=== PATIENT | male | born 1940 | race Caucasian/White ===

== ENCOUNTER 2016-12-26 15:58 | Inpatient (IN) | payer BC, OTHER ==
[~2016-12-26] VITALS: Ht 177.8 cm; Wt 104.7 kg
[~2016-12-26 15:58] MED LIST: ALLO300T2 PO; AMR2 PO; ASCA500 PO; ATEN50TA8 PO; CLBCRM30 TOP; CLC100 PO; CMD75 PO; CYAN100T6 PO; DILT120C68 PO; FERR1TAB23 PO; FLUO0.05 TOP; FOLI1TAB7 PO; GEMF600T3 PO; GLC500 PO; INSDGI SC; LDXCR30 TOP; LSN25 PO; MIRA1TAB3 PO; MORP15TA19 PO; MULT-506 PO; NVLGI SC; OMEG10007 PO; OXYC-57 PO; PARO1TAB27 PO; PRLSR20 PO; SIMV20TA2 PO; THIA100T11 PO
[2016-12-26] MEDS ORDERED: SODIUM CHLORIDE 0.9% 1000ML 1,000 ML IV STA ×2 (16:43→19:00)
--- NOTE | 2016-12-26 17:08 | DIAGNOSTIC IMAGING REPORT ---
SINGLE VIEW CHEST CLINICAL HISTORY: Weakness. Change in mental status. FINDINGS: An AP, portable, upright chest radiograph is compared to study dated 04/10/2016. The examination is degraded by portable technique, motion artifact, and apical lordotic positioning. The patient is status post midline sternotomy. The heart is enlarged and there is atherosclerotic calcification of the thoracic aorta. The pulmonary vasculature is noncongested. There is mild bibasilar atelectasis. The lungs and pleural spaces otherwise appear clear. No pneumothorax is seen. The skeletal structures are osteopenic. Degenerative change is noted in the thoracic spine and left shoulder. IMPRESSION: Cardiomegaly with no acute cardiopulmonary abnormality noting a motion degraded examination. Electronically signed by: Gabriele March M.D. 12/26/2016 5:07 PM Dictated Date/Time: 12/26/2016 5:05 PM
[2016-12-26] MEDS ORDERED: NVLGI/PEN SQ (17:21)
[2016-12-26] MEDS ORDERED: WARF5TAB7 PO (17:23)
[2016-12-26] MEDS ORDERED: WARF10TA4 PO (17:23)
[2016-12-26] MEDS ORDERED: FERR50TA3 PO (17:26)
[2016-12-26 18:10] LABS: PARTIAL THROMBOPLASTIN RATIO 3.8
[2016-12-26 18:25] LABS: ALKALINE PHOSPHATASE 158 U/L (45-117); ALT/SGPT 65 U/L (12-78); AST/SGOT 78 U/L (15-37); BLOOD UREA NITROGEN 82 mg/dl (7-18); BUN/CREATININE RATIO 15.7 (10-20); CALCIUM 9.3 mg/dl (8.5-10.1); CARBON DIOXIDE 19 mmol/L (21-32); CHLORIDE 96 mmol/L (98-107); CKMB/CK RATIO 1.8 (0-3.0); GLUCOSE 114 mg/dl (70-99); MAGNESIUM 2.1 mg/dl (1.8-2.4); POTASSIUM 4.3 mmol/L (3.5-5.1); SODIUM 131 mmol/L (136-145); THYROID STIMULATING HORMONE 0.848 uIu/ml (0.300-4.500)
[2016-12-26 18:37] LABS: PROTHROMBIN TIME (PATIENT) > 100.0 SECONDS (9.0-12.0)
[2016-12-26 18:46] LABS: INR > 8.0 (0.9-1.1)
[2016-12-26 18:54] LABS: COMPLETE YES; DOHLE BODIES 1+; EOSINOPHIL % 0.9 %; MEAN CORPUSCULAR HEMOGLOBIN 31.8 pg (25-34); MEAN CORPUSCULAR HGB CONC 35.4 g/dl (32-36); MYELOCYTE % 0.9 %; NEUTROPHILS % 90.4 %; PLATELET COUNT 263 K/uL (130-400); PLT ESTIMATE NORMAL; RED BLOOD COUNT 3.11 M/uL (4.7-6.1); TOXIC GRANULATION 2+; WHITE BLOOD COUNT 35.61 K/uL (4.8-10.8)
[2016-12-26] MEDS ORDERED: PHYTONADIONE 5 MG TAB PO STA (18:54)
[2016-12-26] MEDS ORDERED: CEFTRIAXONE SOD INJ 1 GM ADDVIAL IV STA (19:03)
--- NOTE | 2016-12-26 19:07 | EMERGENCY ROOM VISIT NOTE ---
History Report prepared by Eboni: Elif White Under the Supervision of: Dr. Salas Dale D.O. First contact with patient: 16:23 Chief Complaint: FLU LIKE SX Stated Complaint: LETHARGY, SLEEPY, WEAKNESS, NOSEBLEED, COLD History of Present Illness The patient is a 76 year old male who presents to the Emergency Room with complaints of persistent flu-like symptoms that began two weeks ago. He currently rates his discomfort as a 7/10 in severity. The patient stats that he has had a decrease in appetite. He notes that today he has been experiencing lethargy and total body aches. The patient states that he has been feeling depressed recently as well. He notes an increase in sleep over the past two weeks. The patient denies any congestion. He additionally notes shakes and chills. The patient states that he has had urinary incontinence and diarrhea that began one week ago. The patient states that he takes Coumadin and notes that he had a persistent epistaxis that began at 1200 today. He states that his last INR was checked one week ago and was 3.5. The patient notes a history of COPD stating that he uses a c-pap machine at night. He states that he has not cleaned his c-pap machine in quite some time, so he is unsure if his recent illness is related to not cleaning his c-pap machine. The patient's brother notes that the patient has a history of diabetes. Source of History: patient, family (brother) Onset: two weeks ago Position: other (global) Symptom Intensity: 7/10 Quality: other (flu-like symptoms) Timing: other (persistent) Associated Symptoms: + chills, + diarrhea, + urinary symptoms (urinary incontinence) Note: Associated Symptoms: lethargy, total body aches, decrease in appetite, increase in sleep, epistaxis Review of Systems See HPI for pertinent positives & negatives. A total of 10 systems reviewed and were otherwise negative. Past Medical & Surgical Medical Problems: (1) BPH (benign prostatic hyperplasia) (2) Diabetes type 2, controlled (3) Dyslipidemia (4) Fall (5) NEMESIO (iron deficiency anemia) (6) Iliac artery aneurysm (7) JAMES on CPAP (8) Paroxysmal atrial fibrillation Surgical Problems: (1) History of appendectomy (2) History of arthroscopy of both knees (3) History of spinal surgery (4) History of total left knee replacement (5) S/P AVR (aortic valve replacement) Family History Diabetes mellitus FH: cancer Heart disease Hypertension Social History Smoking Status: Former Smoker Alcohol Use: none Marital Status: Current/Historical Medications Scheduled Allopurinol (Zyloprim), 300 MG PO Q2D Ascorbic Acid (Vitamin C *), 500 MG PO Q2D Atenolol (Tenormin), 25 MG PO QAM Cyanocobalamin (Vitamin B12 100 Mcg), 500 MCG PO QPM Diltiazem Hcl Ext Rel (Tiazac), 120 MG PO QAM Ferrous Sulfate (Iron (Ferrous Sulfate)), 65 MG PO BID Fish Oil ([place]-3), 1 CAPSULE PO Q2D Fluocinonide (Lidex 0.05% Cream), 1 APPLN TOP DAILY PRN Folic Acid (Folvite), 1 MG PO QPM Gemfibrozil (Lopid), 600 MG PO BID Glimepiride (Amaryl *), 4 MG PO QAM Insulin Aspart (Novolog Flexpen), 1 DOSE SQ SLIDING SCALE Insulin Glargine (Lantus), 40 SC QPM Lisinopril (Lisinopril), 2.5 MG PO QPM Metformin HCL (Glucophage *), 1,000 MG PO BID Mirabegron (Myrbetriq Er), 50 MG PO QAM Multivitamin (Multivitamin), 1 TABLET PO Q2D Paroxetine (Paxil), 20 MG PO QAM Simvastatin (Zocor), 20 MG PO HS Warfarin Sod (Jantoven), 5 MG PO SUNDAY Warfarin Sod (Jantoven), 10 MG PO 6XWK Scheduled PRN Clobetasol Propionate (Clobetasol Propionate Cream 0.05%), 1 APPLN TOP BID PRN for PRN Allergies Coded Allergies: No Known Allergies (Verified , 12/26/16) Physical Exam Vital Signs Date Time Temp Pulse Resp B/P Pulse Ox O2 Delivery O2 Flow Rate FiO2 12/26/16 18:32 82 18 112/57 96 Room Air 12/26/16 17:22 80 20 88/56 95 Room Air 12/26/16 16:03 88 20 87/53 94 Room Air Physical Exam CONSTITUTIONAL/VITAL SIGNS: Reviewed / noted above. GENERAL: Non-toxic in appearance. INTEGUMENTARY: Warm, dry, and [place]. HEAD: Normocephalic. EYES: without scleral icterus or trauma. ENT/OROPHARYNX: SMall bleeding vessel in the right enterior septum. Dry blood in posterior oropharynx LYMPHADENOPATHY/NECK: Is supple without lymphadenopathy or meningismus. RESPIRATORY: Lungs clear and equal. CARDIOVASCULAR: Regular rate and rhythm. GI/ABDOMEN: Soft and nontender. No organomegaly or pulsatile mass. No rebound or guarding. Normal bowel sounds. EXTREMITIES: Warm and well perfused. BACK: No CVA tenderness. NEUROLOGICAL: Intact without focal deficits. PSYCHIATRIC: normal affect. MUSCULOSKELETAL: Normally developed with good muscle tone. Medical Decision & Procedures ER Provider Diagnostic Interpretation: X ray results and stated below per my interpretation and radiology interpretation. SINGLE VIEW CHEST CLINICAL HISTORY: Weakness. Change in mental status. FINDINGS: An AP, portable, upright chest radiograph is compared to study dated 04/10/2016. The examination is degraded by portable technique, motion artifact, and apical lordotic positioning. The patient is status post midline sternotomy. The heart is enlarged and there is atherosclerotic calcification of the thoracic aorta. The pulmonary vasculature is noncongested. There is mild bibasilar atelectasis. The lungs and pleural spaces otherwise appear clear. No pneumothorax is seen. The skeletal structures are osteopenic. Degenerative change is noted in the thoracic spine and left shoulder. IMPRESSION: Cardiomegaly with no acute cardiopulmonary abnormality noting a motion degraded examination. Electronically signed by: Gabriele March M.D. 12/26/2016 5:07 PM Dictated Date/Time: 12/26/2016 5:05 PM Laboratory Results 12/26/16 17:13 Red Blood Count 3.11, Mean Corpuscular Volume 90.0, Mean Corpuscular Hemoglobin 31.8, Mean Corpuscular Hemoglobin Concent 35.4, Mean Platelet Volume 10.0 12/26/16 17:13 Test 12/26/16 17:13 White Blood Count 35.61 K/uL (4.8-10.8) Red Blood Count 3.11 M/uL (4.7-6.1) Hemoglobin 9.9 g/dL (14.0-18.0) Hematocrit 28.0 % (42-52) Mean Corpuscular Volume 90.0 fL (80-100) Mean Corpuscular Hemoglobin 31.8 pg (25-34) Mean Corpuscular Hemoglobin Concent 35.4 g/dl (32-36) Platelet Count 263 K/uL (130-400) Mean Platelet Volume 10.0 fL (7.4-10.4) RDW Standard Deviation 44.4 fL (36.4-46.3) RDW Coefficient of Variation 13.5 % (11.5-14.5) Neutrophils % (Manual) 90.4 % Lymphocytes % (Manual) 0.0 % Monocytes % (Manual) 7.8 % Eosinophils % (Manual) 0.9 % Myelocytes % 0.9 % Neutrophils # (Manual) 32.19 K/uL (1.4-6.5) Total Absolute Neutrophils 32.19 K/uL (1.4-6.5) Total Absolute Lymphocytes 0.00 K/uL (1.2-3.4) Monocytes # (Manual) 2.78 K/uL (0.11-0.59) Eosinophils # (Manual) 0.32 K/uL (0-0.5) Myelocytes # 0.32 K/uL (0-0) Toxic Granulation 2+ Dohle Bodies 1+ Platelet Estimate NORMAL Prothrombin Time > 100.0 SECONDS Prothromb Time International Ratio > 8.0 (0.9-1.1) Activated Partial Thromboplast Time 98.3 SECONDS (21.0-31.0) Partial Thromboplastin Ratio 3.8 Anion Gap 16.0 mmol/L (3-11) Est Creatinine Clear Calc Drug Dose 15.3 ml/min Estimated GFR () 11.6 Estimated GFR (Non- 10.0 BUN/Creatinine Ratio 15.7 (10-20) Calcium Level 9.3 mg/dl (8.5-10.1) Magnesium Level 2.1 mg/dl (1.8-2.4) Total Bilirubin 0.6 mg/dl (0.2-1) Direct Bilirubin 0.3 mg/dl (0-0.2) Aspartate Amino Transf (AST/SGOT) 78 U/L (15-37) Alanine Aminotransferase (ALT/SGPT) 65 U/L (12-78) Alkaline Phosphatase 158 U/L (45-117) Total Creatine Kinase 153 U/L (39-308) Creatine Kinase MB 2.7 ng/ml (0.5-3.6) Creatine Kinase MB Ratio 1.8 (0-3.0) Troponin I < 0.015 ng/ml (0-0.045) Total Protein 8.5 gm/dl (6.4-8.2) Albumin 2.7 gm/dl (3.4-5.0) Lipase 1358 U/L (73-393) Thyroid Stimulating Hormone (TSH) 0.848 uIu/ml (0.300-4.500) Laboratory results as stated above per my review. Medications Administered Medications (Trade) Dose Ordered Sig/Vipul Route Start Time Stop Time Status Last Admin Dose Admin Sodium Chloride (Nss 1000ml) 1,000 ml @ 999 mls/hr Q1H1M STAT IV 12/26/16 16:43 12/26/16 17:43 DC 12/26/16 17:15 999 MLS/HR ECG Indication: other (illness) Rate (beats per minute): 86 Rhythm: sinus rhythm Findings: PVC, no acute ischemic change ED Course 1631: Previous medical records were reviewed. The patient was evaluated in room A4B. A complete history and physical examination was performed. 1643: Ordered Sodium Chloride 1000 ml @ 999 mls/hr IV. 1850: I discussed the patients case with Marguerite Gómez. He is going to evaluate the patient for further treatment. 1852: I reevaluated the patient and he is resting comfortably. I discussed the exam findings with him and his family and I discussed the treatment plan. They verbalized complete understanding and agreement. The patient will be evaluated for further treatment. 1854: Ordered Phytonadione 10 mg PO. Medical Decision Differential includes acute coronary syndrome, myocardial infarction, CVA, TIA, anemia, infection, pneumonia, UTI, pyelonephritis, poor nutrition, dehydration, electrolyte disturbance,hypoglycemia. This is a 76-year-old male who presents to the ED with a chief complaint of a nosebleed that started around noon. He also reports generalized malaise and fatigue over the past couple of weeks. He has no energy and no appetite. He also has had some diarrhea for the past week as well as some urinary incontinence. He primarily came in for the nosebleed but wanted to his other symptoms checked as well. He does not have any chest pains or shortness of breath. No abdominal pains. No headaches or back pains. His vital signs revealed initial blood pressure 87/53. He is not tachycardic or febrile. The patient's blood work reveals acute renal failure with a creatinine of 5.2 and a BUN of 82. The white blood cell count was 35.6. The patient was unable to provide a urine sample here. He has had some diarrhea but did not give a diarrhea sample during his ED stay. The patient was told the results. The patient was treated with 2 L normal saline IV. He was also given IV Rocephin and by mouth vitamin K 10 mg. The right sided epistaxis resolved after chemical cautery and some compression. The patient will be seen by the hospice for further inpatient evaluation. The cause for the leukocytosis is unclear at this point. The patient was unable to provide urine sample as of yet. Chest x- ray did not show pneumonia. C. difficile is a possibility. Consults Time Called: 1845 Consulting Physician: Marguerite Gómez Returned Call: 1850 I discussed the patients case with Marguerite Gómez. He is going to evaluate the patient for further treatment. Impression Primary Impression: Acute renal failure Additional Impressions: Elevated INR Dehydration Leukocytosis Scribe Attestation The scribe's documentation has been prepared under my direction and personally reviewed by me in its entirety. I confirm that the note above accurately reflects all work, treatment, procedures, and medical decision making performed by me. Departure Information Dispostion Being Evaluated By Hospitalist Referrals No Doctor, Assigned (PCP) Problem Qualifiers
[2016-12-26] MEDS ORDERED: GLUCOSE 10 TABS/TUBE PO PRN (20:30)
[2016-12-26] MEDS ORDERED: DEXTROSE 50% 50 ML SYR IV PRN (20:30)
[2016-12-26] MEDS ORDERED: GLUCOSE 40% GEL 15 GM TUBE PO PRN (20:30)
[2016-12-26] MEDS ORDERED: GLUCAGON FOR INJ 1 MG VIAL SQ PRN (20:30)
[2016-12-26] MEDS ORDERED: PHARMACY GLYCEMIC MGMT CONSULT PRN (20:38)
--- NOTE | 2016-12-26 20:57 | Pharmacy Progress Note ---
Glycemic Control Intl Consult Date of Service Dec 26, 2016. Scope Glycemic Pharmacist consulted by Dr Lynn on 12/26/17 for glycemic control and to write orders per [facility] inpatient glycemic control protocol Objective Weight (Kilograms): 111.500 Accuchecks BSG (last 24hrs): Test 12/26/16 17:13 Random Glucose 114 mg/dl (70-99) Laboratory Data (last 24hrs) Test 12/26/16 17:13 Anion Gap 16.0 mmol/L BUN/Creatinine Ratio 15.7 Blood Urea Nitrogen 82 mg/dl Creatinine 5.20 mg/dl Potassium Level 4.3 mmol/L Sodium Level 131 mmol/L White Blood Count 35.61 K/uL Red Blood Count 3.11 M/uL Hemoglobin 9.9 g/dL Hematocrit 28.0 % Mean Corpuscular Volume 90.0 fL Mean Corpuscular Hemoglobin 31.8 pg Mean Corpuscular Hemoglobin Concent 35.4 g/dl Platelet Count 263 K/uL Mean Platelet Volume 10.0 fL Recent Pertinent Medications Outpatient Anti-diabetic Regimen: * Lantus 40 units qPM with Novolog sliding scale, Amaryl 4 mg PO qday * A1c = 6.4 % 05/03/2016 Risk Factors for Insulin Resistance: * Steroids: * Infection: possible- flu like symptoms * Pressors: * IVF: NS @ 125 mls/hr * Recent Surgery * Diet: type 2 diet * Mechanical Ventilation: Assessment & Plan ASSESSMENT: * ADA & AACE recommend a goal blood sugar range 140-180 mg/dl for the majority of critically ill & non-critically ill patients. However, more stringent targets may be selected in individual cases. PLAN FOR INPATIENT GLYCEMIC CONTROL: * Holding outpatient oral diabetes medications * Basal insulin with LANTUS 12 units SQ BID * Correctional Insulin with NOVOLOG per scale ACHS * Goal Range: Low 100 mg/dL - High 140 mg/dL * I believe that a lower goal range is appropriate for this patient as an outpatient he is well controlled and this will help prevent future complications * Correction Factor: 25 mg/dL/unit * Nutritional / Prandial insulin per carb ratio of 1 unit per 10 grams CHO consumed * a looser correctional and nutritional are utilized due to the patient's renal complications * Please note that the plan above was derived based on current level of insulin resistance and hospital stress. These recommendations are appropriate for inpatient admission only. Plan of care upon discharge will need to be reassessed to avoid potential outpatient hypo/hyperglycemia. Thank you.
[2016-12-26] MEDS ORDERED: INSULIN GLARGINE SOLOSTAR 100 UNITS/ML 3 ML PEN SC SCH (21:00)
[2016-12-26] MEDS: SODIUM CHLORIDE 0.9% 1000ML 1,000 ML IV SCH (21:13)
[2016-12-26] MEDS: CYANOCOBALAMIN 500 MCG TAB (VIT B-12) PO SCH (21:14)
[2016-12-26] MEDS: SIMVASTATIN 20 MG TAB PO SCH (21:14)
[2016-12-26] MEDS: FERROUS SULFATE 325 MG TAB PO SCH (21:15)
[2016-12-26] MEDS: INSULIN ASPART 100 UNITS/ML 3 ML PEN SC SCH (21:37)
--- NOTE | 2016-12-26 23:00 | History and Physical ---
History & Physical Date & Time of Service: Dec 26, 2016 at 22:48 Chief Complaint: Acute Renal Failure Primary Care Physician: Kobe Watkins D.OShaji History of Present Illness Source: patient, clinic records 76 year old pleasant male with history of Mechanical Aortic Valve on Coumadin, DM, HTN, BPH, Obstructive Sleep Apnea presenting with epistaxis and weakness. Patient was apparently at his usual state of health until last week when he had approximately 1 week history of profuse diarrhea. At that time patient was also reporting urinary incontinence, chills and malaise. Patient also admits to taking Motrin with Diphenhdyramine for the past month to help him sleep. Today, patient presented to the ER for epistaxis. His right nares was cauterized by Dr. Dale at the ER, which resolved the epistaxis. INR was > 8.0, and he was given Vit K 10mg PO. Also, labs drawn showed patient's crea to be 5.2, HCO3 19. On exam, patient is alert, pleasant, comfortable. States he just feels tired all the time. Denies abdominal pain, nausea, confusion, oliguria. No other symptoms. Past Medical/Surgical History Medical Problems: (1) BPH (benign prostatic hyperplasia) Status: Chronic (2) Diabetes type 2, controlled Status: Chronic (3) Dyslipidemia Status: Chronic (4) NEMESIO (iron deficiency anemia) Status: Chronic (5) Iliac artery aneurysm Status: Chronic (6) JAMES on CPAP Status: Chronic (7) Paroxysmal atrial fibrillation Status: Chronic Surgical Problems: (1) History of appendectomy Status: Chronic (2) History of arthroscopy of both knees Status: Chronic (3) History of spinal surgery Status: Chronic (4) History of total left knee replacement Status: Chronic (5) S/P AVR (aortic valve replacement) Status: Chronic Family History Diabetes mellitus FH: cancer Heart disease Hypertension Social History Smoking Status: Former Smoker Marital Status: Immunizations History of Influenza Vaccine: Yes History of Tetanus Vaccine?: Yes History of Pneumococcal: No History of Hepatitis B Vaccine: No Multi-Drug Resistant Organisms History of MDRO: No Allergies Coded Allergies: No Known Allergies (Verified , 12/26/16) Home Medications Scheduled Allopurinol (Zyloprim), 300 MG PO Q2D Ascorbic Acid (Vitamin C *), 500 MG PO Q2D Atenolol (Tenormin), 25 MG PO QAM Cyanocobalamin (Vitamin B12 100 Mcg), 500 MCG PO QPM Diltiazem Hcl Ext Rel (Tiazac), 120 MG PO QAM Ferrous Sulfate (Iron (Ferrous Sulfate)), 65 MG PO BID Fish Oil ([place]-3), 1 CAPSULE PO Q2D Fluocinonide (Lidex 0.05% Cream), 1 APPLN TOP DAILY PRN Folic Acid (Folvite), 1 MG PO QPM Gemfibrozil (Lopid), 600 MG PO BID Glimepiride (Amaryl *), 4 MG PO QAM Insulin Aspart (Novolog Flexpen), 1 DOSE SQ SLIDING SCALE Insulin Glargine (Lantus), 40 SC QPM Lisinopril (Lisinopril), 2.5 MG PO QPM Metformin HCL (Glucophage *), 1,000 MG PO BID Mirabegron (Myrbetriq Er), 50 MG PO QAM Multivitamin (Multivitamin), 1 TABLET PO Q2D Paroxetine (Paxil), 20 MG PO QAM Simvastatin (Zocor), 20 MG PO HS Warfarin Sod (Jantoven), 5 MG PO SUNDAY Warfarin Sod (Jantoven), 10 MG PO 6XWK Scheduled PRN Clobetasol Propionate (Clobetasol Propionate Cream 0.05%), 1 APPLN TOP BID PRN for PRN Review of Systems Constitutional- no fever; no weight loss Eyes- no acute visual changes ENT- no sinus drainage; no pharyngitis Pulmonary- no cough, no wheezing, no shortness of breath Cardiac- no chest pain, no palpitations, no orthopnea, no dependent edema GI- (+) as noted above - (+) as noted above Musculoskeletal- no arthralgias, no myalgias Derm- no rashes, no new skin lesions, no changing skin lesions Hematologic- no unusual bruising, no unusual bleeding Lymphatics- no adenopathy Endocrine- no polyuria or polydipsia; no heat or cold intolerance Neuro- no headaches, no focal neurologic symptoms Psych- no anxiety, no depression Physical Exam Vital Signs Date Time Temp Pulse Resp B/P Pulse Ox O2 Delivery O2 Flow Rate FiO2 12/26/16 21:00 81 12/26/16 20:51 78 15 113/51 95 Room Air 3/28/17 19:19 77 18 112/57 93 Room Air 12/26/16 18:32 82 18 112/57 96 Room Air 12/26/16 17:22 80 20 88/56 95 Room Air 12/26/16 16:03 88 20 87/53 94 Room Air General Appearance: WD/WN, no apparent distress Head: normocephalic, atraumatic Eyes: normal inspection, EOMI, sclerae normal ENT: hearing grossly normal, pharynx normal, + pertinent finding (no epistaxis) Neck: supple, no adenopathy, thyroid normal, no JVD, trachea midline Respiratory/Chest: chest non-tender, lungs clear, normal breath sounds, no respiratory distress, no accessory muscle use Cardiovascular: regular rate, rhythm, no edema, no JVD, no murmur Abdomen/GI: normal bowel sounds, non tender, soft, no organomegaly Back: normal inspection, no CVA tenderness Extremities/Musculoskelatal: normal inspection, no calf tenderness, normal capillary refill, no pedal edema, normal range of motion Neurologic/Psych: siebel solution architect II-XII nml as tested, no motor/sensory deficits, alert, normal mood/affect, normal reflexes, oriented x 3 Skin: normal color, warm/dry, no rash Lymphatic: no adenopathy Diagnostics Laboratory Results Results Past 24 Hours Test 12/26/16 17:13 12/26/16 21:31 Range/Units White Blood Count 35.61 4.8-10.8 K/uL Red Blood Count 3.11 4.7-6.1 M/uL Hemoglobin 9.9 14.0-18.0 g/dL Hematocrit 28.0 42-52 % Mean Corpuscular Volume 90.0 80-100 fL Mean Corpuscular Hemoglobin 31.8 25-34 pg Mean Corpuscular Hemoglobin Concent 35.4 32-36 g/dl Platelet Count 263 130-400 K/uL Mean Platelet Volume 10.0 7.4-10.4 fL RDW Standard Deviation 44.4 36.4-46.3 fL RDW Coefficient of Variation 13.5 11.5-14.5 % Neutrophils % (Manual) 90.4 % Lymphocytes % (Manual) 0.0 % Monocytes % (Manual) 7.8 % Eosinophils % (Manual) 0.9 % Myelocytes % 0.9 % Neutrophils # (Manual) 32.19 1.4-6.5 K/uL Total Absolute Neutrophils 32.19 1.4-6.5 K/uL Total Absolute Lymphocytes 0.00 1.2-3.4 K/uL Monocytes # (Manual) 2.78 0.11-0.59 K/uL Eosinophils # (Manual) 0.32 0-0.5 K/uL Myelocytes # 0.32 0-0 K/uL Toxic Granulation 2+ Dohle Bodies 1+ Platelet Estimate NORMAL Prothrombin Time > 100.0 9.0-12.0 SECONDS Prothromb Time International Ratio > 8.0 0.9-1.1 Activated Partial Thromboplast Time 98.3 21.0-31.0 SECONDS Partial Thromboplastin Ratio 3.8 Sodium Level 131 136-145 mmol/L Potassium Level 4.3 3.5-5.1 mmol/L Chloride Level 96 98-107 mmol/L Carbon Dioxide Level 19 21-32 mmol/L Anion Gap 16.0 3-11 mmol/L Blood Urea Nitrogen 82 7-18 mg/dl Creatinine 5.20 0.60-1.40 mg/dl Est Creatinine Clear Calc Drug Dose 15.3 ml/min Estimated GFR () 11.6 Estimated GFR (Non- 10.0 BUN/Creatinine Ratio 15.7 10-20 Random Glucose 114 70-99 mg/dl Calcium Level 9.3 8.5-10.1 mg/dl Magnesium Level 2.1 1.8-2.4 mg/dl Total Bilirubin 0.6 0.2-1 mg/dl Direct Bilirubin 0.3 0-0.2 mg/dl Aspartate Amino Transf (AST/SGOT) 78 15-37 U/L Alanine Aminotransferase (ALT/SGPT) 65 12-78 U/L Alkaline Phosphatase 158 45-117 U/L Total Creatine Kinase 153 39-308 U/L Creatine Kinase MB 2.7 0.5-3.6 ng/ml Creatine Kinase MB Ratio 1.8 0-3.0 Troponin I < 0.015 0-0.045 ng/ml Total Protein 8.5 6.4-8.2 gm/dl Albumin 2.7 3.4-5.0 gm/dl Lipase 1358 73-393 U/L Thyroid Stimulating Hormone (TSH) 0.848 0.300-4.500 uIu/ml Bedside Glucose 150 70-99 mg/dl Microbiology Results 12/26/16 Blood Culture, Received Pending 12/26/16 Blood Culture, Received Pending Diagnostic Radiology CXR IMPRESSION: Cardiomegaly with no acute cardiopulmonary abnormality noting a motion degraded examination. EKG SR with PVCs Impression Assessment and Plan 76 year old pleasant male with history of Mechanical Aortic Valve on Coumadin, DM, HTN, BPH, Obstructive Sleep Apnea presenting with epistaxis and weakness. ACUTE RENAL FAILURE LIKELY PRE RENAL FROM DIARRHEAL ILLNESS CONCOMITANT USE OF NSAIDS - baseline crea 0.8, now 5.2 - check renal US, UA, Urine Culture - start IV NSS - Nephrology consulted EPISTAXIS, ELEVATED INR - s/p cauterization at the ER - Vit k 10mg po given INR daily - consult ENT LEUKOCYTOSIS - ff up cultures - empiric Ceftriaxone IV for possible UTI MECHANICAL AORTIC VALVE - INR > 8 Vit K PO given - monitor INR DM 2 hold Insulin and oral meds ISS for now Pharmacy consulted HYPERTENSION blood pressure on the lower side hold Lisinopril, Diltiazem continue Atenolol JAMES CPAP ordered RESTLESS LEGS Pramipexole trial started monitor DVT prophylaxis INR supratherapeutic Full code per patient Disposition pending anticipate d/c home when medically stable VTE Prophylaxis VTE Risk Assessment Done? Y/N: Yes Risk Level: Moderate
[2016-12-27] VITALS (10 sets, daily range): BP systolic 80–127; BP diastolic 46–63; PULSE 75–91; TEMP 36.3–36.9; O2SAT 90–97; Ht 177.8 cm; Wt 104.7 kg
--- NOTE | 2016-12-27 01:48 | Progress Note ---
Internal Med Progress Note Date of Service: Dec 27, 2016. Provider Documentation: Made aware by RN of recurrent epistaxis and painless bloody diarrhea. px received PO vitK earlier rpt INR =8 Hg 9.8 -> 8.8 AP Anemia, Hg drop coumadin coagulopathy LGIB ro cdif recurrent epistaxis reversal of INR w/ IV Vit K in order stool cdif; Flagyl for presumptive cdif in consideration of sepsis criteria (dc Flagyl if stool cdif negative) ff HH, clear liquids for now, adjust basal insulin for clear liquid diet may need GI consult if w/ progression of bleeding/Hg drop Will relay to AM provider. Vital Signs: Date Time Temp Pulse Resp B/P Pulse Ox O2 Delivery O2 Flow Rate FiO2 12/27/16 07:27 80 12/27/16 07:05 36.9 79 22 110/50 97 Room Air 12/27/16 07:02 94 Room Air 12/27/16 05:35 86 28 107/53 95 Room Air 12/27/16 04:17 85 12/27/16 03:13 81 18 109/58 92 Room Air 12/27/16 01:32 85 28 119/52 93 Room Air 12/27/16 00:20 97 12/27/16 00:03 84 18 110/54 95 CPAP 12/26/16 23:25 80 28 107/50 93 Room Air 12/26/16 22:50 21 12/26/16 21:00 81 12/26/16 20:51 78 15 113/51 95 Room Air 12/26/16 19:19 77 18 112/57 93 Room Air 12/26/16 18:32 82 18 112/57 96 Room Air 12/26/16 17:22 80 20 88/56 95 Room Air 12/26/16 16:03 88 20 87/53 94 Room Air Lab Results: Results Past 24 Hours Test 12/26/16 17:13 12/26/16 21:31 12/26/16 22:30 12/27/16 01:50 Range/Units White Blood Count 35.61 30.94 4.8-10.8 K/uL Red Blood Count 3.11 2.77 4.7-6.1 M/uL Hemoglobin 9.9 8.8 14.0-18.0 g/dL Hematocrit 28.0 25.1 42-52 % Mean Corpuscular Volume 90.0 90.6 80-100 fL Mean Corpuscular Hemoglobin 31.8 31.8 25-34 pg Mean Corpuscular Hemoglobin Concent 35.4 35.1 32-36 g/dl Platelet Count 263 234 130-400 K/uL Mean Platelet Volume 10.0 9.8 7.4-10.4 fL RDW Standard Deviation 44.4 44.0 36.4-46.3 fL RDW Coefficient of Variation 13.5 13.3 11.5-14.5 % Neutrophils % (Manual) 90.4 % Lymphocytes % (Manual) 0.0 % Monocytes % (Manual) 7.8 % Eosinophils % (Manual) 0.9 % Myelocytes % 0.9 % Neutrophils # (Manual) 32.19 1.4-6.5 K/uL Total Absolute Neutrophils 32.19 1.4-6.5 K/uL Total Absolute Lymphocytes 0.00 1.2-3.4 K/uL Monocytes # (Manual) 2.78 0.11-0.59 K/uL Eosinophils # (Manual) 0.32 0-0.5 K/uL Myelocytes # 0.32 0-0 K/uL Toxic Granulation 2+ 3+ Dohle Bodies 1+ 1+ Platelet Estimate NORMAL NORMAL Prothrombin Time > 100.0 > 100.0 9.0-12.0 SECONDS Prothromb Time International Ratio > 8.0 > 8.0 0.9-1.1 Activated Partial Thromboplast Time 98.3 21.0-31.0 SECONDS Partial Thromboplastin Ratio 3.8 Sodium Level 131 134 136-145 mmol/L Potassium Level 4.3 4.3 3.5-5.1 mmol/L Chloride Level 96 101 98-107 mmol/L Carbon Dioxide Level 19 18 21-32 mmol/L Anion Gap 16.0 15.0 3-11 mmol/L Blood Urea Nitrogen 82 86 7-18 mg/dl Creatinine 5.20 5.40 0.60-1.40 mg/dl Est Creatinine Clear Calc Drug Dose 15.3 14.8 ml/min Estimated GFR () 11.6 11.1 Estimated GFR (Non- 10.0 9.5 BUN/Creatinine Ratio 15.7 15.5 10-20 Random Glucose 114 108 70-99 mg/dl Calcium Level 9.3 7.9 8.5-10.1 mg/dl Magnesium Level 2.1 1.8-2.4 mg/dl Total Bilirubin 0.6 0.2-1 mg/dl Direct Bilirubin 0.3 0-0.2 mg/dl Aspartate Amino Transf (AST/SGOT) 78 15-37 U/L Alanine Aminotransferase (ALT/SGPT) 65 12-78 U/L Alkaline Phosphatase 158 45-117 U/L Total Creatine Kinase 153 39-308 U/L Creatine Kinase MB 2.7 0.5-3.6 ng/ml Creatine Kinase MB Ratio 1.8 0-3.0 Troponin I < 0.015 0-0.045 ng/ml Total Protein 8.5 6.4-8.2 gm/dl Albumin 2.7 3.4-5.0 gm/dl Lipase 1358 73-393 U/L Thyroid Stimulating Hormone (TSH) 0.848 0.300-4.500 uIu/ml Bedside Glucose 150 70-99 mg/dl Urine Color BROWN Urine Appearance CLOUDY CLEAR Urine pH 4.5-7.5 Urine Specific [place] 1.000-1.030 Urine Protein NEG Urine Glucose (UA) NEG Urine Ketones NEG Urine Occult Blood NEG Urine Nitrite NEG Urine Bilirubin NEG Urine Urobilinogen NEG Urine Leukocyte Esterase NEG Urine RBC >30 0-4 /hpf Urine WBC >30 0-5 /hpf Urine Epithelial Cells 5-10 0-5 /lpf Urine Bacteria 4+ NEG Neutrophils (%) (Auto) 89.3 % Lymphocytes (%) (Auto) 5.9 % Monocytes (%) (Auto) 3.6 % Eosinophils (%) (Auto) 0.1 % Basophils (%) (Auto) 0.1 % Neutrophils # (Auto) 27.63 1.4-6.5 K/uL Lymphocytes # (Auto) 1.83 1.2-3.4 K/uL Monocytes # (Auto) 1.11 0.11-0.59 K/uL Eosinophils # (Auto) 0.04 0-0.5 K/uL Basophils # (Auto) 0.03 0-0.2 K/uL Immature Granulocyte % (Auto) 1.0 % Immature Granulocyte # (Auto) 0.30 0.00-0.02 K/uL Echinocytes 1+ Estimated Average Glucose 143 mg/dl Hemoglobin A1c 6.6 4.5-5.6 % Test 12/27/16 05:50 12/27/16 06:28 12/27/16 07:34 Range/Units Hemoglobin 8.8 14.0-18.0 g/dL Hematocrit 25.2 42-52 % Sodium Level 133 136-145 mmol/L Potassium Level 4.3 3.5-5.1 mmol/L Chloride Level 100 98-107 mmol/L Carbon Dioxide Level 18 21-32 mmol/L Anion Gap 15.0 3-11 mmol/L Blood Urea Nitrogen 92 7-18 mg/dl Creatinine 5.20 0.60-1.40 mg/dl Est Creatinine Clear Calc Drug Dose 15.3 ml/min Estimated GFR () 11.6 Estimated GFR (Non- 10.0 BUN/Creatinine Ratio 17.4 10-20 Random Glucose 128 70-99 mg/dl Calcium Level 7.8 8.5-10.1 mg/dl Bedside Glucose 137 70-99 mg/dl Microbiology Results 12/26/16 Blood Culture, Received Pending 12/26/16 Blood Culture, Received Pending 12/26/16 Urine Culture, Received Pending
[2016-12-27 02:28] LABS: MEAN CORPUSCULAR HGB CONC 35.1 g/dl (32-36)
[2016-12-27 02:33] LABS: BASO % 0.1 %; BASO ABS # 0.03 K/uL (0-0.2); COMPLETE YES; DOHLE BODIES 1+; ECHINOCYTES 1+; EOS % 0.1 %; HEMATOCRIT 25.1 % (42-52); LYMPH % 5.9 %; LYMPH ABS # 1.83 K/uL (1.2-3.4); MEAN CELL VOLUME 90.6 fL (80-100); MEAN CORPUSCULAR HEMOGLOBIN 31.8 pg (25-34); MEAN PLATELET VOLUME 9.8 fL (7.4-10.4); MONO % 3.6 %; NEUT % 89.3 %; PLATELET COUNT 234 K/uL (130-400); PLT ESTIMATE NORMAL; RED BLOOD COUNT 2.77 M/uL (4.7-6.1); TOXIC GRANULATION 3+; WHITE BLOOD COUNT 30.94 K/uL (4.8-10.8)
[2016-12-27 02:41] LABS: BUN/CREATININE RATIO 15.5 (10-20); CREATININE 5.4 mg/dl (0.60-1.40); POTASSIUM 4.3 mmol/L (3.5-5.1)
[2016-12-27] MEDS ORDERED: METRONIDAZOLE 500MG / 100ML NSS IV STA (02:50)
[2016-12-27 02:55] LABS: INR > 8.0 (0.9-1.1); PROTHROMBIN TIME (PATIENT) > 100.0 SECONDS (9.0-12.0)
[2016-12-27 02:56] LABS: CALCIUM 7.9 mg/dl (8.5-10.1)
[2016-12-27] MEDS ORDERED: PHYTONADIONE INJ 10 MG in SODIUM CHLORIDE 0.9% 50ML 50 ML IV ONE (03:15)
[2016-12-27] MEDS ORDERED: CALCIUM CARBONATE 500 MG CHEWABLE PO ONE (04:45)
[2016-12-27] MEDS ORDERED: LORAZEPAM 2 MG/ML 1 ML VIAL IV PRN (05:00)
[2016-12-27] MEDS ORDERED: PRAMIPEXOLE DIHYDROCHLORIDE 0.25MG TAB PO ONE (05:00)
[2016-12-27] MEDS ORDERED: PROMETHAZINE HCL INJ 12.5 MG in SODIUM CHLORIDE 0.9% 50ML 50 ML IV ONE (05:08)
[2016-12-27] MEDS ORDERED: ONDANSETRON INJ 2 MG/ML 2 ML VIAL IV PRN (05:15)
[2016-12-27] MEDS ORDERED: PROMETHAZINE HCL INJ 12.5 MG in SODIUM CHLORIDE 0.9% 50ML 50 ML IV PRN (05:15)
[2016-12-27 05:16] LABS: MANUAL MICROSCOPIC REQUIRED? YES; REVIEW REQ? NO; SULFASALICYLIC ACID POS (NEG); URINE APPEARANCE CLOUDY (CLEAR); URINE COLOR BROWN
[2016-12-27 05:20] LABS: URINE BACTERIA 4+ (NEG); URINE RBC >30 /hpf (0-4); URINE WBC >30 /hpf (0-5); ZZUR CULT IF INDIC CLEAN CATCH YES
[2016-12-27 06:03] LABS: HEMATOCRIT 25.2 % (42-52)
[2016-12-27 06:24] LABS: ESTIMATED AVERAGE GLUCOSE 143 mg/dl; HA1C FLAG Normal (Normal)
[2016-12-27] MEDS: INSULIN ASPART 100 UNITS/ML 3 ML PEN SC SCH ×4 (07:00→21:00)
[2016-12-27 07:06] LABS: BUN/CREATININE RATIO 17.4 (10-20); CALCIUM 7.8 mg/dl (8.5-10.1); CREATININE 5.2 mg/dl (0.60-1.40); POTASSIUM 4.3 mmol/L (3.5-5.1)
--- NOTE | 2016-12-27 07:09 | DIAGNOSTIC IMAGING REPORT ---
RENAL ULTRASOUND CLINICAL HISTORY: Acute renal failure. COMPARISON STUDY: CT of the abdomen and pelvis June 20, 2011. TECHNIQUE: Sonography of the kidneys and the urinary bladder was performed. FINDINGS: The right kidney measures 14.1 x 6.7 x 6.6 cm and the left measures 14.2 x 6.9 x 4.6 cm. There is no hydronephrosis. Renal echogenicity, size and cortical thickness are normal. There is trace left perinephric fluid. 2 left renal cysts measure up to 1.2 cm. No calculi were identified. The bladder was suboptimally assessed due to underdistention. Gallstones were noted within the gallbladder. There was borderline splenomegaly. IMPRESSION: 1. No hydronephrosis. 2. Cholelithiasis. Electronically signed by: Brandon Burnham M.D. 12/27/2016 7:07 AM Dictated Date/Time: 12/27/2016 7:05 AM
[2016-12-27] MEDS: SODIUM CHLORIDE 0.9% 1000ML 1,000 ML IV SCH ×3 (07:20→20:50)
[2016-12-27] MEDS: INSULIN GLARGINE SOLOSTAR 100 UNITS/ML 3 ML PEN SC SCH ×2 (08:50→21:00)
[2016-12-27] MEDS: FERROUS SULFATE 325 MG TAB PO SCH ×2 (09:00→20:51)
[2016-12-27] MEDS: CEFTRIAXONE SOD INJ 1 GM in DEXTROSE 5% ADD-VANTAGE 50ML 50 ML IV SCH (09:01)
[2016-12-27] MEDS: MIRABEGRON ER 25 MG TAB PO SCH (09:02)
[2016-12-27] MEDS: PAROXETINE 20 MG TAB PO SCH (09:03)
--- NOTE | 2016-12-27 10:08 | Gastrointestinal Consultation ---
Gastrointestinal Consultation Date of Consultation: Dec 27, 2016 Attending Physician: Griffin Consulting Physician: Suzette Reason for Consultation: BRBPR History of Present Illness Mr. Papi Chau is a 76 year old male with past medical history significant for mechanical aortic valve (on Coumadin), a-fib, NEMESIO, HTN, BPH, dyslipidemia, DMT2 and JAMES who presented to the ED with weakness, fatigue, flu-like complaints and a history of nose bleeds and BRBPR. GI is consulted for painless rectal bleeding with diarrhea x 10 days. On arrival to the ED, INR was >8 with a WBC of 35 and H&H 9.9/28. BUN 92 and creatinine 5.4. Mr. Chau was seen and examined this morning in the ED. He reports that about ten days ago, he started experiencing painless rectal bleeding with diarrhea. Moving bowels frequently throughout the day, he is unsure of how many times. Blood is always bright red and in the toilet bowl. Can be mixed with stool. There was no abdominal pain or cramping or discomfort. He reports rectal irritation from frequent BM and cleaning. Last episode of BRBPR was this morning. No clots. Denies any sick contacts, recent travel, undercooked foods. Is having abdominal bloating. Denies having rectal bleeding before. Today no fever, chills, chest pain, SOB, abdominal pain, nausea, vomiting, black stools. Blood and urine cultures are pending. No stool studies to date Chest XR 12/26/16: The examination is degraded by portable technique, motion artifact, and apical lordotic positioning. The patient is status post midline sternotomy. The heart is enlarged and there is atherosclerotic calcification of the thoracic aorta. The pulmonary vasculature is noncongested. There is mild bibasilar atelectasis. The lungs and pleural spaces otherwise appear clear. No pneumothorax is seen. The skeletal structures are osteopenic. Degenerative change is noted in the thoracic spine and left shoulder. Colonoscopy 09/30/14: erythematous and inflamed mucosa of the cecum and hepatic flexure. One 2 mm polyp in the transverse colon, diverticulosis on the sigmoid colon, descending colon and ascending colon/ Internal hemorrhoids. EGD 09/30/14: normal esophagus, normal stomach, normal duodenum Past Medical/Surgical History Medical Problems: (1) Acute renal failure Status: Acute (2) Chronic anemia Status: Acute (3) Dehydration Status: Acute (4) Elevated INR Status: Acute (5) Leukocytosis Status: Acute (6) Right knee pain Status: Acute Family History Diabetes mellitus FH: cancer Heart disease Hypertension Social History Smoking Status: Never Smoker Alcohol Use: none Marital Status: Allergies Coded Allergies: No Known Allergies (Verified , 12/26/16) Current Medications Home Meds and Scripts Medications Dose Route/Sig Max Daily Dose Days Date Category Dose Instructions Iron (Ferrous Sulfate) (Ferrous Sulfate) 50 Mg Tab 65 Mg PO BID 12/26/16 Reported Jantoven (Warfarin Sodium) 10 Mg Tab 10 Mg PO [id number] 12/26/16 Reported Jantoven (Warfarin Sodium) 5 Mg Tab 5 Mg PO Sunday12/26/16 Reported Novolog Flexpen (Insulin Aspart) 100 Units/Ml Inj 1 Dose SQ SLIDING SCALE 12/26/16 Reported Zyloprim (Allopurinol) 300 Mg Tab 300 Mg PO Q2D 05/07/16 Reported Tiazac (Diltiazem HCl) 120 Mg Capcr 120 Mg PO QAM 04/10/16 Reported Folvite (Folic Acid) 1 Mg Tab 1 Mg PO QPM 04/10/16 Reported Myrbetriq Er (Mirabegron) 50 Mg Tab 50 Mg PO QAM 05/01/15 Reported Lisinopril 2.5 Mg Tab 2.5 Mg PO QPM 08/13/14 Reported Lidex 0.05% Cream (Fluocinonide) 90 Appln/30 Gm Cr 1 Appln TOP DAILY PRN 01/31/12 Reported Clobetasol Propionate Cream 0.05% (Clobetasol Propionate) 90 Appln/30 Gm Cr 1 Appln TOP BID PRN 01/31/12 Reported Lantus (Insulin Glargine) Vial 40 SC QPM 01/31/12 Reported Lopid (Gemfibrozil) 600 Mg Tab 600 Mg PO BID 01/31/12 Reported Paxil (Paroxetine HCl) 20 Mg Tab 20 Mg PO QAM 01/31/12 Reported Glucophage * (Metformin HCl) 1,000 Mg Tab 1,000 Mg PO BID 01/31/12 Reported Vitamin B12 100 Mcg (Cyanocobalamin) 100 Mcg Tab 500 Mcg PO QPM 01/31/12 Reported Vitamin C * (Ascorbic Acid) 500 Mg Tab 500 Mg PO Q2D 10/10/09 Reported Amaryl * (Glimepiride) 4 Mg Tab 4 Mg PO QAM 10/10/09 Reported Zocor (Simvastatin) 20 Mg Tab 20 Mg PO HS 02/16/09 Reported Multivitamin (Multivitamins) Tab 1 Tablet PO Q2D 02/16/09 Reported AM [place]-3 (Fish Oil) 1 Ea Cap 1 Capsule PO Q2D 02/16/09 Reported Tenormin (Atenolol) 50 Mg Tab 25 Mg PO QAM 02/16/09 Reported Review of Systems Constitutional: No chills, No fever ENT: + unusual epistaxis Respiratory: No cough, No shortness of breath Cardiac: No chest pain, No edema Abdomen: + GI bleeding, + diarrhea, No constipation, No nausea, No pain, No vomiting Skin: No bleeding Physical Exam Date Time Temp Pulse Resp B/P Pulse Ox O2 Delivery O2 Flow Rate FiO2 12/27/16 09:33 36.9 80 24 106/46 93 Room Air 12/27/16 09:05 80 24 80/60 95 Room Air 103/48 12/27/16 07:27 80 12/27/16 07:05 36.9 79 22 110/50 97 Room Air 12/27/16 07:02 94 Room Air 12/27/16 05:35 86 28 107/53 95 Room Air 12/27/16 04:17 85 12/27/16 03:13 81 18 109/58 92 Room Air 12/27/16 01:32 85 28 119/52 93 Room Air 12/27/16 00:20 97 12/27/16 00:03 84 18 110/54 95 CPAP 12/26/16 23:25 80 28 107/50 93 Room Air 12/26/16 22:50 21 12/26/16 21:00 81 12/26/16 20:51 78 15 113/51 95 Room Air 12/26/16 19:19 77 18 112/57 93 Room Air 12/26/16 18:32 82 18 112/57 96 Room Air 12/26/16 17:22 80 20 88/56 95 Room Air 12/26/16 16:03 88 20 87/53 94 Room Air General Appearance: no apparent distress (patient is sitting upright in bed, conversing at ease) Eyes: PERRL ENT: hearing grossly normal, + pertinent finding (no evidence of epistaxis at 1030 on my exam) Neck: supple, trachea midline Respiratory/Chest: lungs clear, normal breath sounds, no respiratory distress, no accessory muscle use Cardiovascular: regular rate, rhythm, no edema, no gallop, no JVD, no murmur Abdomen: normal bowel sounds, non tender, soft, no organomegaly, no pulsatile mass Neurologic/Psych: alert, normal mood/affect, oriented x 3 Skin: normal color, no jaundice, warm/dry, no rash Laboratory Results Last 24 Hours Test 12/26/16 17:13 12/26/16 21:31 12/26/16 22:30 12/27/16 01:50 White Blood Count 35.61 K/uL 30.94 K/uL Red Blood Count 3.11 M/uL 2.77 M/uL Hemoglobin 9.9 g/dL 8.8 g/dL Hematocrit 28.0 % 25.1 % Mean Corpuscular Volume 90.0 fL 90.6 fL Mean Corpuscular Hemoglobin 31.8 pg 31.8 pg Mean Corpuscular Hemoglobin Concent 35.4 g/dl 35.1 g/dl Platelet Count 263 K/uL 234 K/uL Mean Platelet Volume 10.0 fL 9.8 fL RDW Standard Deviation 44.4 fL 44.0 fL RDW Coefficient of Variation 13.5 % 13.3 % Neutrophils % (Manual) 90.4 % Lymphocytes % (Manual) 0.0 % Monocytes % (Manual) 7.8 % Eosinophils % (Manual) 0.9 % Myelocytes % 0.9 % Neutrophils # (Manual) 32.19 K/uL Total Absolute Neutrophils 32.19 K/uL Total Absolute Lymphocytes 0.00 K/uL Monocytes # (Manual) 2.78 K/uL Eosinophils # (Manual) 0.32 K/uL Myelocytes # 0.32 K/uL Toxic Granulation 2+ 3+ Dohle Bodies 1+ 1+ Platelet Estimate NORMAL NORMAL Prothrombin Time > 100.0 SECONDS > 100.0 SECONDS Prothromb Time International Ratio > 8.0 > 8.0 Activated Partial Thromboplast Time 98.3 SECONDS Partial Thromboplastin Ratio 3.8 Sodium Level 131 mmol/L 134 mmol/L Potassium Level 4.3 mmol/L 4.3 mmol/L Chloride Level 96 mmol/L 101 mmol/L Carbon Dioxide Level 19 mmol/L 18 mmol/L Anion Gap 16.0 mmol/L 15.0 mmol/L Blood Urea Nitrogen 82 mg/dl 86 mg/dl Creatinine 5.20 mg/dl 5.40 mg/dl Est Creatinine Clear Calc Drug Dose 15.3 ml/min 14.8 ml/min Estimated GFR () 11.6 11.1 Estimated GFR (Non- 10.0 9.5 BUN/Creatinine Ratio 15.7 15.5 Random Glucose 114 mg/dl 108 mg/dl Calcium Level 9.3 mg/dl 7.9 mg/dl Magnesium Level 2.1 mg/dl Total Bilirubin 0.6 mg/dl Direct Bilirubin 0.3 mg/dl Aspartate Amino Transf (AST/SGOT) 78 U/L Alanine Aminotransferase (ALT/SGPT) 65 U/L Alkaline Phosphatase 158 U/L Total Creatine Kinase 153 U/L Creatine Kinase MB 2.7 ng/ml Creatine Kinase MB Ratio 1.8 Troponin I < 0.015 ng/ml Total Protein 8.5 gm/dl Albumin 2.7 gm/dl Lipase 1358 U/L Thyroid Stimulating Hormone (TSH) 0.848 uIu/ml Bedside Glucose 150 mg/dl Urine Color BROWN Urine Appearance CLOUDY Urine pH Urine Specific [place] Urine Protein Urine Glucose (UA) Urine Ketones Urine Occult Blood Urine Nitrite Urine Bilirubin Urine Urobilinogen Urine Leukocyte Esterase Urine RBC >30 /hpf Urine WBC >30 /hpf Urine Epithelial Cells 5-10 /lpf Urine Bacteria 4+ Neutrophils (%) (Auto) 89.3 % Lymphocytes (%) (Auto) 5.9 % Monocytes (%) (Auto) 3.6 % Eosinophils (%) (Auto) 0.1 % Basophils (%) (Auto) 0.1 % Neutrophils # (Auto) 27.63 K/uL Lymphocytes # (Auto) 1.83 K/uL Monocytes # (Auto) 1.11 K/uL Eosinophils # (Auto) 0.04 K/uL Basophils # (Auto) 0.03 K/uL Immature Granulocyte % (Auto) 1.0 % Immature Granulocyte # (Auto) 0.30 K/uL Echinocytes 1+ Estimated Average Glucose 143 mg/dl Hemoglobin A1c 6.6 % Test 12/27/16 05:50 12/27/16 06:28 12/27/16 07:34 Hemoglobin 8.8 g/dL Hematocrit 25.2 % Sodium Level 133 mmol/L Potassium Level 4.3 mmol/L Chloride Level 100 mmol/L Carbon Dioxide Level 18 mmol/L Anion Gap 15.0 mmol/L Blood Urea Nitrogen 92 mg/dl Creatinine 5.20 mg/dl Est Creatinine Clear Calc Drug Dose 15.3 ml/min Estimated GFR () 11.6 Estimated GFR (Non- 10.0 BUN/Creatinine Ratio 17.4 Random Glucose 128 mg/dl Calcium Level 7.8 mg/dl Bedside Glucose 137 mg/dl Impression Mr. Chau is a 76 year old male with bloody diarrhea x 10 days in the setting of Coumadin toxicity with an INR>8, WBC 35 and acute renal failure. On exam this morning, his vitals are stable BP 113/63, he is alert & oriented x 3, with H&H 8.8/25. Differentials include diverticular bleed, hemorrhoidal bleed, anal fissure, infectious colitis etc in the setting of Coumadin toxicity. Suggest reversal of INR before any GI intervention if patient remains stable. Plan Vit K for INR reversal IVF for hydration Trend H&H Monitor stools Transfuse as needed PPI BID as preventative Agree with flagyl coverage stool culture and check for c.diff GI is "ok" for clear liquids - will leave NPO status up to primary team as no plan for GI intervention currently. No current role for endoscopy with INR >8 GI will follow. Call with questions. I have seen and examined the patient with Carmen Sue whose note reflect sour findings and plan.
--- NOTE | 2016-12-27 11:24 | NEPHROLOGY CONSULTATION ---
DATE OF CONSULTATION: 12/27/2016 ATTENDING OF RECORD: Dr. Moya. REASON FOR CONSULTATION: CLIFFORD. 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 Salcido of [facility] cardiology who is on Coumadin. The patient also with underlying diabetes and high blood pressure as well as sleep apnea. The patient has not felt well for the past 2 weeks, has been taking 4 Motrin PM a day. Has been having chills, decreased appetite, bright red blood from the rectum, decreased urination. The patient's was encouraging him to go to the hospital for the past 2 weeks and finally the patient came in and found to have an INR greater than 8. He was given oral vitamin K and his creatinine was up to 5.2. REVIEW OF SYSTEMS: Positive for rectal bleeding. No shortness of breath. No chest pain. Positive shaking chills. No documented fevers. No blurry vision, no dysphagia, no chest pain. No nausea or vomiting. Positive significant diarrhea. No rash or itching. All other review of systems is otherwise negative. Positive anorexia. Positive fatigue. PAST MEDICAL HISTORY: BPH, type 2 diabetes, hyperlipidemia, obstructive sleep apnea, paroxysmal AFib, mechanical aortic valve. PAST SURGICAL HISTORY: Appendectomy, spinal surgery, left knee replacement, aortic valve replacement. FAMILY HISTORY: Significant for diabetes. SOCIAL HISTORY: Former smoker. No alcohol, no drugs. He is and lives at home. HOME MEDICATIONS: Significant for lisinopril 2.5 mg a day, atenolol 25 mg daily, Coumadin, metformin. CURRENT MEDICATIONS: Allopurinol 200 mg every 2 days, Flagyl 500 IV q. 8, ceftriaxone 1 gram IV daily, atenolol 25 mg daily, Myrbetriq 25 mg daily, Paxil 20 mg daily, Lantus 10 units subQ b.i.d., sliding-scale insulin, vitamin B12 500 mcg daily, folic acid 1 mg daily, Zocor 20 mg at night, iron 325 mg twice a day, normal saline at 125 mL an hour. PHYSICAL EXAMINATION: VITAL SIGNS: Temperature 36.9, pulse 80, respiratory rate 24, blood pressure 103/48, satting 95% on room air. GENERAL: Awake, alert, oriented x3. However, slow to answer questions, but answers them appropriately. EYES: No scleral icterus. ENT: Mucous membranes are dry. NECK: Supple. PULMONARY: Clear to auscultation. CARDIAC: Positive click. ABDOMEN: Bowel sounds positive, soft, nontender, nondistended. EXTREMITIES: No clubbing, cyanosis or edema. NEUROLOGICAL: Nonfocal. Slow to answer questions though. LABORATORIES: Sodium was 133, potassium is 4.3, chloride is 100, bicarbonate is 18, BUN is 92, creatinine is 5.2, glucose 128, calcium 7.8, albumin is 2.7. White count is 30,000, H\T\H 8.8 and 25.2, platelet count 234. INR is greater than 8. UA shows greater than 30 RBCs, greater than 30 WBCs, brown, cloudy appearance. Urine culture and blood cultures are pending. Renal ultrasound shows a right kidney of 14.1 cm and left kidney 14.2 cm. No hydronephrosis, normal echogenicity and normal cortical thickness. Chest x-ray shows cardiomegaly with no acute cardiopulmonary abnormality. ASSESSMENT AND PLAN: 1. Acute kidney injury in the setting of leukocytosis with a white count of 35,000, shaking chills and high dose nonsteroidal antiinflammatory drugs with underlying diabetes who presents with a creatinine of 5.2, which has gone up to 5.4, the last one is 5.2. Other electrolytes are stable. Technically no indication for emergent dialysis at this time. Will follow urine output. Urine is dark. Will check random urine sodium. The patient may need dialysis during this admission, appears that the patient is significantly volume depleted with low blood pressures in the setting of infection of unclear etiology. I do not feel that the patient is having GN type process. However, clinical syndrome may be significant enough to cause an ATN like episode where creatinine may worsen before it starts to improve. We will continue to hydrate aggressively. Renal ultrasound is unimpressive. Diabetes normally well controlled. Hopefully kidney function starts to improve and urination starts to clear with aggressive fluids as we try to control the sepsis as well as possible. Will follow labs closely. No indication for emergent dialysis at this time; however, may need dialysis during this admission depending on clinical course. Will check random urine sodium as well as uric acid and go from there. Appreciate consultation. TYRON
[2016-12-27] MEDS: METRONIDAZOLE / NSS 500 MG in PREMIXED NSS 100 ML IV SCH ×2 (11:53→22:08)
--- NOTE | 2016-12-27 13:36 | Clinical Documentation Query ---
QUERY 1 OF [address] SONG, In your clinical opinion is this patient being managed for: ( ) Sepsis ( ) Other explanation of clinical findings (Please Explain) ( ) Unable to determine (Please Define) ( ) Need to Discuss ( ) Not Agree Please forward query to attending hospitalist Dr. Katie Moya. Thank you.- Benjamin Song MD The medical record reflects the following clinical findings, treatment, and risk factors. Clinical Indicators: 76 yo male presenting with shakes/chills, decreased appetite, lethargy, diarrhea. BP 87/53, Cr 5.20, WBC 35.61 Treatment:2L NSS bolus then continuous, Blood and urine cx pending, IV flagyl, IV rocephin, stool for C diff pending, tele monitoring Risk Factors:age, possible UTI, possible C diff colitis, DM QUERY 2 OF 2 In your clinical opinion is this patient being managed for: ( ) GI bleed due to Coumadin and/or NSAIDS ( ) Other explanation of clinical findings (Please Explain) ( ) Unable to determine (Please Define) ( ) Need to Discuss ( ) Not Agree The medical record reflects the following clinical findings, treatment, and risk factors. Clinical Indicators: 76 yo male presenting with bright red rectal bleeding x 10 days and new onset of epistaxis. INR found to be >8, Reported taking significant doses of NSAIDS. Treatment: IV protonix, GI consult, stool for C diff, vitamin K po, serial H/H, IV fluids Risk Factors: coumadin therapy/supratherapeutic INR Please clarify and document your clinical opinion in the progress notes and discharge summary. Terms such as "probable", "suspected", "likely", "questionable", "possible", or "still to be ruled out" are acceptable. IF IN AGREEMENT, YOU MUST DOCUMENT ABOVE DIAGNOSTIC STATEMENT IN DAILY PROGRESS NOTES AND DISCHARGE SUMMARY. This document is not part of the patient's record. Thank You, Cinthia Bay, RN [phone]
--- NOTE | 2016-12-27 14:06 | Clinical Documentation Query ---
QUERY 1 OF [address] JEFFERSON, In your clinical opinion is this patient being managed for: ( ) Sepsis ( ) Other explanation of clinical findings (Please Explain) ( ) Unable to determine (Please Define) ( ) Need to Discuss ( ) Not Agree The medical record reflects the following clinical findings, treatment, and risk factors. Clinical Indicators: 76 yo male presenting with shakes/chills, decreased appetite, lethargy, diarrhea. BP 87/53, Cr 5.20, WBC 35.61 Treatment:2L NSS bolus then continuous, Blood and urine cx pending, IV flagyl, IV rocephin, stool for C diff pending, tele monitoring Risk Factors:age, possible UTI, possible C diff colitis, DM QUERY 2 OF 3 In your clinical opinion is this patient being managed for: ( ) GI bleed due to coumadin and/or NSAIDS ( ) Other explanation of clinical findings (Please Explain) ( ) Unable to determine (Please Define) ( ) Need to Discuss ( ) Not Agree The medical record reflects the following clinical findings, treatment, and risk factors. Clinical Indicators: 76 yo male presenting with bright red rectal bleeding x 10 days and new onset of epistaxis. INR found to be >8. Reported taking significant doses of NSAIDS Treatment: IV protonix, GI consult, stool for C diff, vitamin K po, serial H/H, IV fluids Risk Factors: coumadin therapy /supratherapeutic INR QUERY 3 OF 3 In your clinical opinion is this patient being managed for: ( ) Acute blood loss anemia ( ) Other explanation of clinical findings (Please Explain) ( ) Unable to determine (Please Define) ( ) Need to Discuss ( ) Not Agree The medical record reflects the following clinical findings, treatment, and risk factors. Clinical Indicators:Initial Hgb 9.9, Hct 28 which has trended down to 7.3/20.5. Having ongoing bloody stools Treatment: 1U PRBC, monitor H/H and INR, tele monitoring, GI consult, hold Coumadin and NSAIDS Risk Factors: supratherapeutic INR, bloody stools, possible C diff colitis Please clarify and document your clinical opinion in the progress notes and discharge summary. Terms such as "probable", "suspected", "likely", "questionable", "possible", or "still to be ruled out" are acceptable. IF IN AGREEMENT, YOU MUST DOCUMENT ABOVE DIAGNOSTIC STATEMENT IN DAILY PROGRESS NOTES AND DISCHARGE SUMMARY. This document is not part of the patient's record. Thank You, Cinthia Bay, RN [phone]
[2016-12-27 16:13] LABS: HEMATOCRIT 23.6 % (42-52); MEAN CELL VOLUME 92.5 fL (80-100); MEAN CORPUSCULAR HEMOGLOBIN 32.5 pg (25-34); MEAN CORPUSCULAR HGB CONC 35.2 g/dl (32-36); MEAN PLATELET VOLUME 9.8 fL (7.4-10.4); PLATELET COUNT 232 K/uL (130-400); RED BLOOD COUNT 2.55 M/uL (4.7-6.1); WHITE BLOOD COUNT 29.96 K/uL (4.8-10.8)
[2016-12-27 16:25] LABS: PROTHROMBIN TIME (PATIENT) 40.8 SECONDS (9.0-12.0)
[2016-12-27 16:26] LABS: INR 3.6 (0.9-1.1)
[2016-12-27 16:46] LABS: URIC ACID 8.6 mg/dl (2.6-7.2)
[2016-12-27 17:14] LABS: BUN/CREATININE RATIO 18.6 (10-20); CALCIUM 7.5 mg/dl (8.5-10.1); CREATININE 4.8 mg/dl (0.60-1.40); POTASSIUM 4.1 mmol/L (3.5-5.1)
--- NOTE | 2016-12-27 19:45 | Progress Note ---
Medicine Progress Note Date & Time of Visit: Dec 27, 2016 at 19:26. Subjective Pt was seen and examined lying in bed with no distress pt said that he has one more episode of bloody diarrhea again in the ER No more episode of nose bleeding since last night he said that he has not been eating for the past week denies any chest pain, palpitation, abdominal pain and fever. Objective Last 8 Hrs Date Time Temp Pulse Resp B/P Pulse Ox O2 Delivery O2 Flow Rate FiO2 12/27/16 16:00 Room Air 12/27/16 15:44 36.4 83 18 105/55 90 Room Air 12/27/16 12:00 Room Air 12/27/16 11:38 36.3 78 18 100/61 93 Room Air Physical Exam: General- No distress Head- atraumatic Eyes- PERRL, EOMI ENT- oropharynx clear, dry mucosa Neck- supple, no JVD Lungs- clear to auscultation, no wheezing Heart- regular rhythm Abdomen- normal bowel sounds, soft, nontender Extremities- no calf tenderness Neuro- alert, oriented x 3; PERRL, EOMI; Skin- warm & dry Laboratory Results: Last 24 Hours Test 12/26/16 21:31 12/26/16 22:30 12/27/16 01:50 12/27/16 05:50 Bedside Glucose 150 mg/dl Urine Color BROWN Urine Appearance CLOUDY Urine pH Urine Specific [place] Urine Protein Urine Glucose (UA) Urine Ketones Urine Occult Blood Urine Nitrite Urine Bilirubin Urine Urobilinogen Urine Leukocyte Esterase Urine RBC >30 /hpf Urine WBC >30 /hpf Urine Epithelial Cells 5-10 /lpf Urine Bacteria 4+ White Blood Count 30.94 K/uL Red Blood Count 2.77 M/uL Hemoglobin 8.8 g/dL 8.8 g/dL Hematocrit 25.1 % 25.2 % Mean Corpuscular Volume 90.6 fL Mean Corpuscular Hemoglobin 31.8 pg Mean Corpuscular Hemoglobin Concent 35.1 g/dl Platelet Count 234 K/uL Mean Platelet Volume 9.8 fL Neutrophils (%) (Auto) 89.3 % Lymphocytes (%) (Auto) 5.9 % Monocytes (%) (Auto) 3.6 % Eosinophils (%) (Auto) 0.1 % Basophils (%) (Auto) 0.1 % Neutrophils # (Auto) 27.63 K/uL Lymphocytes # (Auto) 1.83 K/uL Monocytes # (Auto) 1.11 K/uL Eosinophils # (Auto) 0.04 K/uL Basophils # (Auto) 0.03 K/uL RDW Standard Deviation 44.0 fL RDW Coefficient of Variation 13.3 % Immature Granulocyte % (Auto) 1.0 % Immature Granulocyte # (Auto) 0.30 K/uL Toxic Granulation 3+ Dohle Bodies 1+ Platelet Estimate NORMAL Echinocytes 1+ Prothrombin Time > 100.0 SECONDS Prothromb Time International Ratio > 8.0 Sodium Level 134 mmol/L Potassium Level 4.3 mmol/L Chloride Level 101 mmol/L Carbon Dioxide Level 18 mmol/L Anion Gap 15.0 mmol/L Blood Urea Nitrogen 86 mg/dl Creatinine 5.40 mg/dl Est Creatinine Clear Calc Drug Dose 14.8 ml/min Estimated GFR () 11.1 Estimated GFR (Non- 9.5 BUN/Creatinine Ratio 15.5 Random Glucose 108 mg/dl Estimated Average Glucose 143 mg/dl Hemoglobin A1c 6.6 % Calcium Level 7.9 mg/dl Test 12/27/16 06:28 12/27/16 07:34 12/27/16 10:50 12/27/16 11:49 Sodium Level 133 mmol/L Potassium Level 4.3 mmol/L Chloride Level 100 mmol/L Carbon Dioxide Level 18 mmol/L Anion Gap 15.0 mmol/L Blood Urea Nitrogen 92 mg/dl Creatinine 5.20 mg/dl Est Creatinine Clear Calc Drug Dose 15.3 ml/min Estimated GFR () 11.6 Estimated GFR (Non- 10.0 BUN/Creatinine Ratio 17.4 Random Glucose 128 mg/dl Calcium Level 7.8 mg/dl Bedside Glucose 137 mg/dl 142 mg/dl Urine Random Sodium 31 mEq/L Test 12/27/16 16:04 12/27/16 16:47 White Blood Count 29.96 K/uL Red Blood Count 2.55 M/uL Hemoglobin 8.3 g/dL Hematocrit 23.6 % Mean Corpuscular Volume 92.5 fL Mean Corpuscular Hemoglobin 32.5 pg Mean Corpuscular Hemoglobin Concent 35.2 g/dl RDW Standard Deviation 46.4 fL RDW Coefficient of Variation 13.7 % Platelet Count 232 K/uL Mean Platelet Volume 9.8 fL Prothrombin Time 40.8 SECONDS Prothromb Time International Ratio 3.6 Sodium Level 131 mmol/L Potassium Level 4.1 mmol/L Chloride Level 101 mmol/L Carbon Dioxide Level 17 mmol/L Anion Gap 13.0 mmol/L Blood Urea Nitrogen 89 mg/dl Creatinine 4.80 mg/dl Est Creatinine Clear Calc Drug Dose 16.6 ml/min Estimated GFR () 12.8 Estimated GFR (Non- 11.0 BUN/Creatinine Ratio 18.6 Random Glucose 110 mg/dl Lactic Acid Level 1.1 mmol/L Uric Acid 8.6 mg/dl Calcium Level 7.5 mg/dl Ionized Calcium 1.00 mmol/l Phosphorus Level 5.0 mg/dl Total Creatine Kinase 111 U/L Lipase 1113 U/L Bedside Glucose 124 mg/dl Date/Time Source Procedure Growth Status 12/26/16 21:13 Blood Blood Culture Pending Received 12/26/16 21:07 Blood Blood Culture Pending Received 12/27/16 10:50 Urine,Catheterized Urine Culture Pending Received 12/26/16 22:30 Urine , Clean Catch Urine Culture Pending Received Assessment & Plan ACUTE RENAL FAILURE LIKELY PRE RENAL FROM DIARRHEAL ILLNESS CONCOMITANT USE OF NSAIDS - baseline crea 0.8, now 5.2 - Renal US showed trace left perinephric fluid. No hydronephrosis - Continue IVF - Nephrology on board GI bleed Mostly due to INR supra therapeutic (INR >8) continue to have bloody diarrhea received Vit K hgb dropped to 8.3 GI consulted- appreciated input PPI check stool for cdiff continue flagyl until stool cx negative for cdiff monitor h/h q8 and transfused if hgb less than 8 EPISTAXIS due to elevated INR - s/p cauterization at the ER - Vit k 10mg po and IV given - INR dropped to 3.6 - ENT consulted LEUKOCYTOSIS - urine cx and blood cx pending - will check procalcitonin - empiric Ceftriaxone IV for possible UTI - flagyl IV for possible cdiff MECHANICAL AORTIC VALVE - INR > 8 - received Vit K - monitor INR DM 2 hold Insulin and oral meds ISS for now Pharmacy consulted HYPERTENSION blood pressure on the lower side hold Lisinopril, Diltiazem, bb continue Atenolol JAMES CPAP ordered RESTLESS LEGS Pramipexole trial started monitor DVT prophylaxis INR supratherapeutic Full code per patient Current Inpatient Medications: Current Inpatient Medications Medications (Trade) Dose Ordered Sig/Vipul Route Start Time Stop Time Status Last Admin Dose Admin Sodium Chloride 1,000 ml @ 125 mls/hr Q8H IV 12/26/16 20:30 01/25/17 20:29 12/27/16 11:45 125 MLS/HR Ceftriaxone Sodium/Dextrose (Rocephin Inj/ Dextrose Add-[place] 50ML) 50 ml @ 100 mls/hr DAILY@1000 IV 12/27/16 10:00 01/06/17 09:59 12/27/16 09:01 100 MLS/HR Insulin Aspart (novoLOG ASPART) SLIDING SCALE If C... ACHS SC 12/26/16 21:00 01/25/17 20:59 12/27/16 11:00 7 UNITS Glucose (Glucose 40% Gel) 15-30 GRAMS 15 GRAMS... UD PRN PO 12/26/16 20:30 01/25/17 20:29 Glucose (Glucose Chew Tab) 4-8 Tablets 4 Tabl... UD PRN PO 12/26/16 20:30 01/25/17 20:29 Dextrose (Dextrose 50% 50ML Syringe) 25-50ML OF 50% DW IV FOR... UD PRN IV 12/26/16 20:30 01/25/17 20:29 Glucagon (Glucagon Inj) 1 mg UD PRN SQ 12/26/16 20:30 01/25/17 20:29 Miscellaneous Information (Consult Glycemic Management Pharmacy) 1 ea UD PRN N/A 12/26/16 20:38 01/25/17 20:37 Allopurinol (Zyloprim Tab) 200 mg Q2D@0900 PO 12/28/16 09:00 01/27/17 08:59 Atenolol (Tenormin Tab) 25 mg QAM PO 12/27/16 09:00 01/26/17 08:59 Future Hold Cyanocobalamin (Vitamin B-12 Tab) 500 mcg QPM PO 12/26/16 21:00 01/25/17 20:59 12/26/16 21:14 500 MCG Folic Acid (Folvite Tab) 1 mg QPM PO 12/26/16 21:00 01/25/17 20:59 12/26/16 21:13 1 MG Mirabegron (Myrbetriq Er) 25 mg QAM PO 12/27/16 09:00 01/26/17 08:59 12/27/16 09:02 25 MG Paroxetine HCl (pAXil TAB) 20 mg QAM PO 12/27/16 09:00 01/26/17 08:59 12/27/16 09:03 20 MG Simvastatin (Zocor Tab) 20 mg HS PO 12/26/16 21:00 01/25/17 20:59 12/26/16 21:14 20 MG Ferrous Sulfate (Feosol Tab) 325 mg BID PO 12/26/16 21:00 01/25/17 20:59 12/27/16 09:00 325 MG Acetaminophen (Tylenol Tab) 650 mg Q4H PRN PO 12/26/16 20:45 01/25/17 20:44 Pramipexole Dihydrochloride 0.125 mg 0.125 mg DAILY PRN PO 12/26/16 21:45 01/25/17 21:44 Metronidazole/Prmx (Flagyl / Nss/ Premixed Nss) 100 ml @ 100 mls/hr Q8H IV 12/27/16 12:00 01/06/17 11:59 12/27/16 11:53 100 MLS/HR Calcium Carbonate (Tums Chew Tab) 500 mg Q6H PRN PO 12/27/16 04:45 01/26/17 04:44 Lorazepam (Ativan Inj) 0.5 mg Q4H PRN IV 12/27/16 05:00 01/26/17 04:59 Ondansetron HCl 4 mg 4 mg Q6H PRN IV 12/27/16 05:15 01/26/17 05:14 Promethazine HCl/ Sodium Chloride (Phenergan Inj/ Nss 50ml) 50.5 ml @ 204 mls/hr Q6H PRN IV 12/27/16 05:15 01/26/17 05:14 Insulin Glargine (Lantus Solostar Pen) 10 unit BID SC 12/27/16 09:00 01/26/17 08:59 12/27/16 08:50 10 UNIT Miscellaneous Information (Pending Order) 1 ea BID N/A 12/27/16 09:00 01/26/17 08:59 12/27/16 09:04 1 EA
[2016-12-27] MEDS: CYANOCOBALAMIN 500 MCG TAB (VIT B-12) PO SCH (20:51)
[2016-12-27] MEDS: SIMVASTATIN 20 MG TAB PO SCH (20:52)
[2016-12-27] MEDS ORDERED: INSULIN GLARGINE PER UNIT 5 UNITS in SYRINGE 0 ML SC SCH (21:00)
[2016-12-27] MEDS: ACETAMINOPHEN 325 MG TAB PO PRN (23:59)
[2016-12-27] MEDS: PRAMIPEXOLE DIHYDROCHLORIDE 0.25MG TAB PO PRN (23:59)
[2016-12-28] VITALS (10 sets, daily range): BP systolic 121–162; BP diastolic 58–84; PULSE 76–106; TEMP 36.4–36.8; O2SAT 94–97
[2016-12-28 00:19] LABS: HEMATOCRIT 20.5 % (42-52)
[2016-12-28] MEDS: METRONIDAZOLE / NSS 500 MG in PREMIXED NSS 100 ML IV SCH ×2 (04:29→12:57)
[2016-12-28] MEDS: SODIUM CHLORIDE 0.9% 1000ML 1,000 ML IV SCH ×3 (04:30→19:35)
[2016-12-28] MEDS: ACETAMINOPHEN 325 MG TAB PO PRN (04:51)
[2016-12-28] MEDS: PAROXETINE 20 MG TAB PO SCH (07:52)
[2016-12-28] MEDS: FERROUS SULFATE 325 MG TAB PO SCH ×2 (07:52→19:36)
[2016-12-28] MEDS: ALLOPURINOL 100 MG TAB PO SCH (07:53)
[2016-12-28] MEDS: MIRABEGRON ER 25 MG TAB PO SCH (07:53)
[2016-12-28] MEDS: INSULIN ASPART 100 UNITS/ML 3 ML PEN SC SCH ×4 (07:56→20:32)
[2016-12-28] MEDS: INSULIN GLARGINE SOLOSTAR 100 UNITS/ML 3 ML PEN SC SCH (07:57)
[2016-12-28 08:12] LABS: HEMATOCRIT 24.2 % (42-52); MEAN CORPUSCULAR HEMOGLOBIN 31.6 pg (25-34); MEAN CORPUSCULAR HGB CONC 35.5 g/dl (32-36); MEAN PLATELET VOLUME 9.5 fL (7.4-10.4); PLATELET COUNT 214 K/uL (130-400); RED BLOOD COUNT 2.72 M/uL (4.7-6.1)
--- NOTE | 2016-12-28 08:19 | Nephrology Progress Note ---
Nephrology Progress Note Date of Service: Dec 28, 2016. Subjective 76 yo male with atn from volume depletion and nsaids with lynn catheter in place. tolerating fluids well and creatinine slowly improving. urinating very well but urine still very dark in color. pt overall starting to feel better. appetite is improving. Objective Date Time Temp Pulse Resp B/P Pulse Ox O2 Delivery O2 Flow Rate FiO2 12/28/16 07:51 36.4 80 22 143/69 95 12/28/16 04:00 Nasal Cannula 2.0 Humidified Oxygen 12/28/16 03:40 36.6 84 20 121/61 94 2.0 12/28/16 02:36 36.5 85 20 162/84 96 2.0 12/28/16 02:06 36.6 84 20 155/73 97 2.0 12/28/16 01:51 36.4 85 18 131/58 97 2.0 12/28/16 00:15 36.7 87 20 124/62 95 Room Air 12/27/16 23:59 Nasal Cannula 2.0 Humidified Oxygen 12/27/16 22:05 91 94 12/27/16 20:00 Room Air CPAP 12/27/16 19:31 36.6 75 29 127/60 93 Room Air 12/27/16 16:00 Room Air 12/27/16 15:44 36.4 83 18 105/55 90 Room Air 12/27/16 12:00 Room Air 12/27/16 11:38 36.3 78 18 100/61 93 Room Air 12/27/16 10:57 81 18 109/63 95 Room Air 12/27/16 10:37 79 12/27/16 10:14 80 18 113/63 97 Room Air 12/27/16 09:33 36.9 80 24 106/46 93 Room Air 12/27/16 09:05 80 24 80/60 95 Room Air 103/48 Physical Exam: General-aaox3 Eyes-no scleral icterus ENT-mm dry Neck-supple Lungs-cta Heart-rrr Abdomen-bs+ s/nt/nd Extremities-no c/c/e Neuro-nonfocal Current Inpatient Medications Medications (Trade) Dose Ordered Sig/Vipul Route Start Time Stop Time Status Last Admin Dose Admin Sodium Chloride 1,000 ml @ 125 mls/hr Q8H IV 12/26/16 20:30 01/25/17 20:29 12/27/16 20:50 125 MLS/HR Ceftriaxone Sodium/Dextrose (Rocephin Inj/ Dextrose Add-[place] 50ML) 50 ml @ 100 mls/hr DAILY@1000 IV 12/27/16 10:00 01/06/17 09:59 12/27/16 09:01 100 MLS/HR Insulin Aspart (novoLOG ASPART) SLIDING SCALE If C... ACHS SC 12/26/16 21:00 01/25/17 20:59 12/28/16 07:56 1 UNITS Glucose (Glucose 40% Gel) 15-30 GRAMS 15 GRAMS... UD PRN PO 12/26/16 20:30 01/25/17 20:29 Glucose (Glucose Chew Tab) 4-8 Tablets 4 Tabl... UD PRN PO 12/26/16 20:30 01/25/17 20:29 Dextrose (Dextrose 50% 50ML Syringe) 25-50ML OF 50% DW IV FOR... UD PRN IV 12/26/16 20:30 01/25/17 20:29 Glucagon (Glucagon Inj) 1 mg UD PRN SQ 12/26/16 20:30 01/25/17 20:29 Miscellaneous Information (Consult Glycemic Management Pharmacy) 1 ea UD PRN N/A 12/26/16 20:38 01/25/17 20:37 Allopurinol (Zyloprim Tab) 200 mg Q2D@0900 PO 12/28/16 09:00 01/27/17 08:59 12/28/16 07:53 200 MG Atenolol (Tenormin Tab) 25 mg QAM PO 12/27/16 09:00 01/26/17 08:59 Future Hold Cyanocobalamin (Vitamin B-12 Tab) 500 mcg QPM PO 12/26/16 21:00 01/25/17 20:59 12/27/16 20:51 500 MCG Folic Acid (Folvite Tab) 1 mg QPM PO 12/26/16 21:00 01/25/17 20:59 12/27/16 20:51 1 MG Mirabegron (Myrbetriq Er) 25 mg QAM PO 12/27/16 09:00 01/26/17 08:59 12/28/16 07:53 25 MG Paroxetine HCl (pAXil TAB) 20 mg QAM PO 12/27/16 09:00 01/26/17 08:59 12/28/16 07:52 20 MG Simvastatin (Zocor Tab) 20 mg HS PO 12/26/16 21:00 01/25/17 20:59 12/27/16 20:52 20 MG Ferrous Sulfate (Feosol Tab) 325 mg BID PO 12/26/16 21:00 01/25/17 20:59 12/28/16 07:52 325 MG Acetaminophen (Tylenol Tab) 650 mg Q4H PRN PO 12/26/16 20:45 01/25/17 20:44 12/28/16 04:51 650 MG Pramipexole Dihydrochloride 0.125 mg 0.125 mg DAILY PRN PO 12/26/16 21:45 01/25/17 21:44 12/27/16 23:59 0.125 MG Metronidazole/Prmx (Flagyl / Nss/ Premixed Nss) 100 ml @ 100 mls/hr Q8H IV 12/27/16 12:00 01/06/17 11:59 12/28/16 04:29 100 MLS/HR Calcium Carbonate (Tums Chew Tab) 500 mg Q6H PRN PO 12/27/16 04:45 01/26/17 04:44 Lorazepam (Ativan Inj) 0.5 mg Q4H PRN IV 12/27/16 05:00 01/26/17 04:59 Ondansetron HCl 4 mg 4 mg Q6H PRN IV 12/27/16 05:15 01/26/17 05:14 Promethazine HCl/ Sodium Chloride (Phenergan Inj/ Nss 50ml) 50.5 ml @ 204 mls/hr Q6H PRN IV 12/27/16 05:15 01/26/17 05:14 Insulin Glargine (Lantus Solostar Pen) 10 unit BID SC 12/27/16 09:00 01/26/17 08:59 12/28/16 07:57 10 UNIT Miscellaneous Information (Pending Order) 1 ea BID N/A 12/27/16 09:00 01/26/17 08:59 12/27/16 09:04 1 EA Last 24 Hours Test 12/27/16 10:50 12/27/16 11:49 12/27/16 16:04 12/27/16 16:47 Urine Random Sodium 31 mEq/L Bedside Glucose 142 mg/dl 124 mg/dl White Blood Count 29.96 K/uL Red Blood Count 2.55 M/uL Hemoglobin 8.3 g/dL Hematocrit 23.6 % Mean Corpuscular Volume 92.5 fL Mean Corpuscular Hemoglobin 32.5 pg Mean Corpuscular Hemoglobin Concent 35.2 g/dl RDW Standard Deviation 46.4 fL RDW Coefficient of Variation 13.7 % Platelet Count 232 K/uL Mean Platelet Volume 9.8 fL Prothrombin Time 40.8 SECONDS Prothromb Time International Ratio 3.6 Sodium Level 131 mmol/L Potassium Level 4.1 mmol/L Chloride Level 101 mmol/L Carbon Dioxide Level 17 mmol/L Anion Gap 13.0 mmol/L Blood Urea Nitrogen 89 mg/dl Creatinine 4.80 mg/dl Est Creatinine Clear Calc Drug Dose 16.6 ml/min Estimated GFR () 12.8 Estimated GFR (Non- 11.0 BUN/Creatinine Ratio 18.6 Random Glucose 110 mg/dl Lactic Acid Level 1.1 mmol/L Uric Acid 8.6 mg/dl Calcium Level 7.5 mg/dl Ionized Calcium 1.00 mmol/l Phosphorus Level 5.0 mg/dl Total Creatine Kinase 111 U/L Lipase 1113 U/L Test 12/27/16 20:05 12/27/16 23:58 12/28/16 06:39 12/28/16 08:00 Bedside Glucose 166 mg/dl 102 mg/dl Hemoglobin 7.3 g/dL 8.6 g/dL Hematocrit 20.5 % 24.2 % White Blood Count 24.40 K/uL Red Blood Count 2.72 M/uL Mean Corpuscular Volume 89.0 fL Mean Corpuscular Hemoglobin 31.6 pg Mean Corpuscular Hemoglobin Concent 35.5 g/dl RDW Standard Deviation 45.0 fL RDW Coefficient of Variation 13.8 % Platelet Count 214 K/uL Mean Platelet Volume 9.5 fL Date/Time Source Procedure Growth Status 12/27/16 10:50 Urine,Catheterized Urine Culture Pending Received Assessment & Plan [id number]-no indication for emergent dialysis. tolerating fluids well. labs pending for this am but creatinine appears to be improving. likely atn from volume depletion with concominant nsaids. may take several days for creatinine to improve. monitor for signs of volume overload.
[2016-12-28 08:22] LABS: PROTHROMBIN TIME (PATIENT) 33.3 SECONDS (9.0-12.0)
[2016-12-28 08:44] LABS: BUN/CREATININE RATIO 20.9 (10-20); CALCIUM 7.7 mg/dl (8.5-10.1); POTASSIUM 3.9 mmol/L (3.5-5.1)
[2016-12-28 08:49] LABS: ALB/GLOB RATIO 0.4 (0.9-2)
--- NOTE | 2016-12-28 09:18 | Gastroenterology Progress Note ---
Progress Note Date of Service: Dec 28, 2016 Subjective Pt evaluation today including: conversation w/ patient, physical exam, chart review, lab review Pt was seen and examined this morning. He is very confused - reports he had a colonoscopy three days ago. Unable to identify any records of this procedure. Confirmed with no procedure done. No GI complaints. No rectal bleeding or diarrhea x 24 hours. Review of Systems Constitutional: No chills, No fever Respiratory: No cough, No shortness of breath Cardiac: No chest pain, No edema Abdomen: No GI bleeding, No constipation, No diarrhea, No nausea, No pain, No vomiting Medications Current Inpatient Medications Medications (Trade) Dose Ordered Sig/Vipul Route Start Time Stop Time Status Last Admin Dose Admin Sodium Chloride 1,000 ml @ 125 mls/hr Q8H IV 12/26/16 20:30 01/25/17 20:29 12/27/16 20:50 125 MLS/HR Ceftriaxone Sodium/Dextrose (Rocephin Inj/ Dextrose Add-[place] 50ML) 50 ml @ 100 mls/hr DAILY@1000 IV 12/27/16 10:00 01/06/17 09:59 12/27/16 09:01 100 MLS/HR Insulin Aspart (novoLOG ASPART) SLIDING SCALE If C... ACHS SC 12/26/16 21:00 01/25/17 20:59 12/28/16 07:56 1 UNITS Glucose (Glucose 40% Gel) 15-30 GRAMS 15 GRAMS... UD PRN PO 12/26/16 20:30 01/25/17 20:29 Glucose (Glucose Chew Tab) 4-8 Tablets 4 Tabl... UD PRN PO 12/26/16 20:30 01/25/17 20:29 Dextrose (Dextrose 50% 50ML Syringe) 25-50ML OF 50% DW IV FOR... UD PRN IV 12/26/16 20:30 01/25/17 20:29 Glucagon (Glucagon Inj) 1 mg UD PRN SQ 12/26/16 20:30 01/25/17 20:29 Miscellaneous Information (Consult Glycemic Management Pharmacy) 1 ea UD PRN N/A 12/26/16 20:38 01/25/17 20:37 Allopurinol (Zyloprim Tab) 200 mg Q2D@0900 PO 12/28/16 09:00 01/27/17 08:59 12/28/16 07:53 200 MG Atenolol (Tenormin Tab) 25 mg QAM PO 12/27/16 09:00 01/26/17 08:59 Future Hold Cyanocobalamin (Vitamin B-12 Tab) 500 mcg QPM PO 12/26/16 21:00 01/25/17 20:59 12/27/16 20:51 500 MCG Folic Acid (Folvite Tab) 1 mg QPM PO 12/26/16 21:00 01/25/17 20:59 12/27/16 20:51 1 MG Mirabegron (Myrbetriq Er) 25 mg QAM PO 12/27/16 09:00 01/26/17 08:59 12/28/16 07:53 25 MG Paroxetine HCl (pAXil TAB) 20 mg QAM PO 12/27/16 09:00 01/26/17 08:59 12/28/16 07:52 20 MG Simvastatin (Zocor Tab) 20 mg HS PO 12/26/16 21:00 01/25/17 20:59 12/27/16 20:52 20 MG Ferrous Sulfate (Feosol Tab) 325 mg BID PO 12/26/16 21:00 01/25/17 20:59 12/28/16 07:52 325 MG Acetaminophen (Tylenol Tab) 650 mg Q4H PRN PO 12/26/16 20:45 01/25/17 20:44 12/28/16 04:51 650 MG Pramipexole Dihydrochloride 0.125 mg 0.125 mg DAILY PRN PO 12/26/16 21:45 01/25/17 21:44 12/27/16 23:59 0.125 MG Metronidazole/Prmx (Flagyl / Nss/ Premixed Nss) 100 ml @ 100 mls/hr Q8H IV 12/27/16 12:00 01/06/17 11:59 12/28/16 04:29 100 MLS/HR Calcium Carbonate (Tums Chew Tab) 500 mg Q6H PRN PO 12/27/16 04:45 01/26/17 04:44 Lorazepam (Ativan Inj) 0.5 mg Q4H PRN IV 12/27/16 05:00 01/26/17 04:59 Ondansetron HCl 4 mg 4 mg Q6H PRN IV 12/27/16 05:15 01/26/17 05:14 Promethazine HCl/ Sodium Chloride (Phenergan Inj/ Nss 50ml) 50.5 ml @ 204 mls/hr Q6H PRN IV 12/27/16 05:15 01/26/17 05:14 Insulin Glargine (Lantus Solostar Pen) 10 unit BID SC 12/27/16 09:00 01/26/17 08:59 12/28/16 07:57 10 UNIT Miscellaneous Information (Pending Order) 1 ea BID N/A 12/27/16 09:00 01/26/17 08:59 12/27/16 09:04 1 EA Phytonadione (Mephyton Tab) 5 mg ONE ONCE PO 12/28/16 09:00 12/28/16 09:01 UNV Objective Vital Signs Date Time Temp Pulse Resp B/P Pulse Ox O2 Delivery O2 Flow Rate FiO2 12/28/16 07:51 36.4 80 22 143/69 95 12/28/16 04:00 Nasal Cannula 2.0 Humidified Oxygen 12/28/16 03:40 36.6 84 20 121/61 94 2.0 12/28/16 02:36 36.5 85 20 162/84 96 2.0 12/28/16 02:06 36.6 84 20 155/73 97 2.0 12/28/16 01:51 36.4 85 18 131/58 97 2.0 12/28/16 00:15 36.7 87 20 124/62 95 Room Air 12/27/16 23:59 Nasal Cannula 2.0 Humidified Oxygen 12/27/16 22:05 91 94 12/27/16 20:00 Room Air CPAP 12/27/16 19:31 36.6 75 29 127/60 93 Room Air 12/27/16 16:00 Room Air 12/27/16 15:44 36.4 83 18 105/55 90 Room Air 12/27/16 12:00 Room Air 12/27/16 11:38 36.3 78 18 100/61 93 Room Air 12/27/16 10:57 81 18 109/63 95 Room Air 12/27/16 10:37 79 12/27/16 10:14 80 18 113/63 97 Room Air 12/27/16 09:33 36.9 80 24 106/46 93 Room Air Physical Exam General Appearance: no apparent distress Eyes: PERRL ENT: hearing grossly normal, + pertinent finding (severe nose bleed) Neck: supple, trachea midline Respiratory/Chest: lungs clear, normal breath sounds, no respiratory distress, no accessory muscle use Cardiovascular: regular rate, rhythm, no gallop, no JVD, no murmur Abdomen: normal bowel sounds, non tender, soft, no organomegaly Neurologic/Psych: alert, normal mood/affect, oriented x 3 (oriented x 3 but confused) Skin: normal color, no jaundice, no rash Laboratory Results Last 24 Hours Test 12/27/16 10:50 12/27/16 11:49 12/27/16 16:04 12/27/16 16:47 Urine Random Sodium 31 mEq/L Bedside Glucose 142 mg/dl 124 mg/dl White Blood Count 29.96 K/uL Red Blood Count 2.55 M/uL Hemoglobin 8.3 g/dL Hematocrit 23.6 % Mean Corpuscular Volume 92.5 fL Mean Corpuscular Hemoglobin 32.5 pg Mean Corpuscular Hemoglobin Concent 35.2 g/dl RDW Standard Deviation 46.4 fL RDW Coefficient of Variation 13.7 % Platelet Count 232 K/uL Mean Platelet Volume 9.8 fL Prothrombin Time 40.8 SECONDS Prothromb Time International Ratio 3.6 Sodium Level 131 mmol/L Potassium Level 4.1 mmol/L Chloride Level 101 mmol/L Carbon Dioxide Level 17 mmol/L Anion Gap 13.0 mmol/L Blood Urea Nitrogen 89 mg/dl Creatinine 4.80 mg/dl Est Creatinine Clear Calc Drug Dose 16.6 ml/min Estimated GFR () 12.8 Estimated GFR (Non- 11.0 BUN/Creatinine Ratio 18.6 Random Glucose 110 mg/dl Lactic Acid Level 1.1 mmol/L Uric Acid 8.6 mg/dl Calcium Level 7.5 mg/dl Ionized Calcium 1.00 mmol/l Phosphorus Level 5.0 mg/dl Total Creatine Kinase 111 U/L Lipase 1113 U/L Test 12/27/16 20:05 12/27/16 23:58 12/28/16 06:39 12/28/16 08:00 Bedside Glucose 166 mg/dl 102 mg/dl Hemoglobin 7.3 g/dL 8.6 g/dL Hematocrit 20.5 % 24.2 % White Blood Count 24.40 K/uL Red Blood Count 2.72 M/uL Mean Corpuscular Volume 89.0 fL Mean Corpuscular Hemoglobin 31.6 pg Mean Corpuscular Hemoglobin Concent 35.5 g/dl RDW Standard Deviation 45.0 fL RDW Coefficient of Variation 13.8 % Platelet Count 214 K/uL Mean Platelet Volume 9.5 fL Prothrombin Time 33.3 SECONDS Prothromb Time International Ratio 3.0 Sodium Level 135 mmol/L Potassium Level 3.9 mmol/L Chloride Level 106 mmol/L Carbon Dioxide Level 15 mmol/L Anion Gap 14.0 mmol/L Blood Urea Nitrogen 84 mg/dl Creatinine 4.00 mg/dl Est Creatinine Clear Calc Drug Dose 20.0 ml/min Estimated GFR () 15.9 Estimated GFR (Non- 13.7 BUN/Creatinine Ratio 20.9 Random Glucose 106 mg/dl Calcium Level 7.7 mg/dl Total Bilirubin 0.5 mg/dl Aspartate Amino Transf (AST/SGOT) 77 U/L Alanine Aminotransferase (ALT/SGPT) 53 U/L Alkaline Phosphatase 170 U/L Total Protein 6.5 gm/dl Albumin 2.0 gm/dl Globulin 4.5 gm/dl Albumin/Globulin Ratio 0.4 Assessment and Plan I have seen and examined the patient with Carmen Sue whose note reflects our findings and plan.
[2016-12-28] MEDS ORDERED: PHYTONADIONE 5 MG TAB PO ONE (09:30)
[2016-12-28] MEDS: CALCIUM CARBONATE 500 MG CHEWABLE PO PRN ×2 (09:55→19:42)
[2016-12-28] MEDS ORDERED: PHYTONADIONE INJ 5 MG in SODIUM CHLORIDE 0.9% 50ML 50 ML IV ONE (10:00)
--- NOTE | 2016-12-28 10:38 | Pharmacy Progress Note ---
Glycemic Control: Progress Nt Date of Service Dec 28, 2016. Scope Glycemic Pharmacist consulted by Dr Lynn on 12/26/16 for glycemic control and to write orders per [facility] inpatient glycemic control protocol. Objective Accuchecks BSG (last 24hrs): Test 12/27/16 11:49 12/27/16 16:04 12/27/16 16:47 12/27/16 20:05 Bedside Glucose 142 mg/dl (70-99) 124 mg/dl (70-99) 166 mg/dl (70-99) Random Glucose 110 mg/dl (70-99) Test 12/28/16 06:39 12/28/16 08:00 Bedside Glucose 102 mg/dl (70-99) Random Glucose 106 mg/dl (70-99) Laboratory Data (last 24hrs) Test 12/27/16 16:04 12/28/16 08:00 Anion Gap 13.0 mmol/L 14.0 mmol/L BUN/Creatinine Ratio 18.6 20.9 Blood Urea Nitrogen 89 mg/dl 84 mg/dl Creatinine 4.80 mg/dl 4.00 mg/dl Potassium Level 4.1 mmol/L 3.9 mmol/L Sodium Level 131 mmol/L 135 mmol/L White Blood Count 29.96 K/uL 24.40 K/uL HbA1c: Test 12/27/16 01:50 Hemoglobin A1c 6.6 % (4.5-5.6) H Recent Pertinent Medications Outpatient Anti-diabetic Regimen: * Lantus 40 units qPM * Novolog per sliding scale * Amaryl 4 mg daily * Metformin 1 gm BID The patient is currently receiving: * Basal insulin: Lantus 10 units every 12 hours * Correctional Insulin: Novolog Correction per scale ACHS Goal Range: Low 110 mg/dL - High 140 mg/dL Correction Factor: 25 mg/dL/unit * Prandial insulin: Per carb ratio of 1 unit per 10 grams CHO consumed * Oral Agents: None at this time Risk Factors for Insulin Resistance: * Infection: Rocephin for possible UTI, Flagyl for possible C. diff * Diet: Clear - minimal CHO consumption Assessment & Plan ASSESSMENT: * ADA & AACE recommend a goal blood sugar range 140-180 mg/dl for the majority of critically ill & non-critically ill patients. However, more stringent targets may be selected in individual cases. 12/28/16 * Mr. Chau received 27 units of insulin yesterday with BSGs ranging from 102 -142 mg/dL in the past 24 hours * His basal insulin was reduced yesterday since he was changed to a clear liquid diet. Since his fasting is slightly lower today, I would like to reduce the basal further (~20%). * Current CF/CR not overly aggressive so will plan to continue with these as ordered * Since his BSGs are on the lower side and nursing notes indicate risk for falls , will plan to loosen the goal range with the Novolog order PLAN FOR INPATIENT GLYCEMIC CONTROL: * Reduce Lantus to 8 units BID * Continue Novolog ACHS * LOOSEN goal range slightly to 110-150 mg/dL to prevent hypoglycemia * CF 25 mg/dL/unit * CR 1 unit per 10 gm CHO consumed * Will continue to hold oral agents secondary to CL[place]ORD and reduced po intake. Can consider resuming closer to discharge if no contraindications present RECOMMENDATIONS FOR DISCHARGE: * A1c indicates excellent outpatient control * Resume outpatient regimen upon discharge * Note that resumption of oral agents will be dependent on renal function improving Thank you.
[2016-12-28] MEDS: CEFTRIAXONE SOD INJ 1 GM in DEXTROSE 5% ADD-VANTAGE 50ML 50 ML IV SCH (11:25)
--- NOTE | 2016-12-28 14:21 | Progress Note ---
Medicine Progress Note Date & Time of Visit: Dec 28, 2016 at 13:42. Subjective Pt was seen and examined Lying in bed with no distress with at bedside Pt had an episode of nose bleeding this morning that stopped after applying pressure He said that he had a BM today with dark tarry colored Denies any chest pain, palpitation, dizziness and SOB Objective Last 8 Hrs Date Time Temp Pulse Resp B/P Pulse Ox O2 Delivery O2 Flow Rate FiO2 12/28/16 12:00 Room Air 12/28/16 11:41 36.5 76 22 133/65 95 12/28/16 08:00 Room Air 12/28/16 07:51 36.4 80 22 143/69 95 Physical Exam: General- No distress Head- atraumatic Eyes- PERRL, EOMI ENT- oropharynx clear, dry mucosa Neck- supple, no JVD Lungs- clear to auscultation, no wheezing Heart- regular rhythm Abdomen- normal bowel sounds, soft, nontender Extremities- no calf tenderness Neuro- alert, oriented x 3; PERRL, EOMI; Skin- warm & dry Laboratory Results: Last 24 Hours Test 12/27/16 16:04 12/27/16 16:47 12/27/16 20:05 12/27/16 23:58 White Blood Count 29.96 K/uL Red Blood Count 2.55 M/uL Hemoglobin 8.3 g/dL 7.3 g/dL Hematocrit 23.6 % 20.5 % Mean Corpuscular Volume 92.5 fL Mean Corpuscular Hemoglobin 32.5 pg Mean Corpuscular Hemoglobin Concent 35.2 g/dl RDW Standard Deviation 46.4 fL RDW Coefficient of Variation 13.7 % Platelet Count 232 K/uL Mean Platelet Volume 9.8 fL Prothrombin Time 40.8 SECONDS Prothromb Time International Ratio 3.6 Sodium Level 131 mmol/L Potassium Level 4.1 mmol/L Chloride Level 101 mmol/L Carbon Dioxide Level 17 mmol/L Anion Gap 13.0 mmol/L Blood Urea Nitrogen 89 mg/dl Creatinine 4.80 mg/dl Est Creatinine Clear Calc Drug Dose 16.6 ml/min Estimated GFR () 12.8 Estimated GFR (Non- 11.0 BUN/Creatinine Ratio 18.6 Random Glucose 110 mg/dl Lactic Acid Level 1.1 mmol/L Uric Acid 8.6 mg/dl Calcium Level 7.5 mg/dl Ionized Calcium 1.00 mmol/l Phosphorus Level 5.0 mg/dl Total Creatine Kinase 111 U/L Lipase 1113 U/L Bedside Glucose 124 mg/dl 166 mg/dl Test 12/28/16 06:39 12/28/16 08:00 12/28/16 11:36 Bedside Glucose 102 mg/dl 168 mg/dl White Blood Count 24.40 K/uL Red Blood Count 2.72 M/uL Hemoglobin 8.6 g/dL Hematocrit 24.2 % Mean Corpuscular Volume 89.0 fL Mean Corpuscular Hemoglobin 31.6 pg Mean Corpuscular Hemoglobin Concent 35.5 g/dl RDW Standard Deviation 45.0 fL RDW Coefficient of Variation 13.8 % Platelet Count 214 K/uL Mean Platelet Volume 9.5 fL Prothrombin Time 33.3 SECONDS Prothromb Time International Ratio 3.0 Sodium Level 135 mmol/L Potassium Level 3.9 mmol/L Chloride Level 106 mmol/L Carbon Dioxide Level 15 mmol/L Anion Gap 14.0 mmol/L Blood Urea Nitrogen 84 mg/dl Creatinine 4.00 mg/dl Est Creatinine Clear Calc Drug Dose 20.0 ml/min Estimated GFR () 15.9 Estimated GFR (Non- 13.7 BUN/Creatinine Ratio 20.9 Random Glucose 106 mg/dl Calcium Level 7.7 mg/dl Total Bilirubin 0.5 mg/dl Aspartate Amino Transf (AST/SGOT) 77 U/L Alanine Aminotransferase (ALT/SGPT) 53 U/L Alkaline Phosphatase 170 U/L Total Protein 6.5 gm/dl Albumin 2.0 gm/dl Globulin 4.5 gm/dl Albumin/Globulin Ratio 0.4 Procalcitonin 6.88 ng/mL Date/Time Source Procedure Growth Status 12/28/16 00:00 Stool Shiga Toxin Test Pending Received 12/28/16 00:00 Stool Stool Culture Pending Received 12/28/16 00:00 Stool C.difficile Toxin B Gene (PCR) Pending Received Assessment & Plan ACUTE RENAL FAILURE LIKELY PRE RENAL FROM DIARRHEAL ILLNESS CONCOMITANT USE OF NSAIDS Creatine on admission 5.2 that improved to 4 today baseline crea 0.8 Renal US showed trace left perinephric fluid. No hydronephrosis Continue IVF Continue monitor I/O Nephrology on board- appreciate input No need for emergent HD GI bleed Due to Coumadin and NSAID Mostly due to INR supra therapeutic (INR >8) continue to have bloody diarrhea received Vit K hgb dropped to 7.3 last night Hgb this morning 8.6 Received vit K 5 mg PO today Transfused 1 unit prbc GI consulted- appreciated input PPI check stool for cdiff continue flagyl until stool cx negative for cdiff monitor h/h q8 and transfused if hgb less than 8 Acute Blood Loss Due to GI bleed Hbg dropped to 7.3 last night Transfused 1 unit PRBC Hbg today 8.6 GI on board continue monitor h/h RECURRENT EPISTAXIS due to elevated INR s/p cauterization at the ER Vit k given INR dropped to 3.5 ENT consulted- Pending LEUKOCYTOSIS R/O Sepsis WBC o 35K and hypotension on Admission trending down to 24K Procalcitonin elevated urine cx positive for gram negative bacilli Continue empiric Ceftriaxone IV for UTI On Flagyl IV for possible cdiff UTI Urine cx growth gram negative bacilli present with WBC 35K afebrile Continue rocephin IV Waiting for final cx Monitor cbc MECHANICAL AORTIC VALVE INR > 8 on admission received Vit K INR today 3.5 Vit K was given today because pt had an episode of epistaxis monitor INR DM 2 hold Insulin and oral meds ISS for now Pharmacy consulted HYPERTENSION blood pressure on the lower side hold Lisinopril, Diltiazem, bb continue Atenolol JAMES CPAP ordered RESTLESS LEGS Pramipexole trial started monitor DVT prophylaxis INR supratherapeutic Full code per patient Consultants: Gastro, ENT Current Inpatient Medications: Current Inpatient Medications Medications (Trade) Dose Ordered Sig/Vipul Route Start Time Stop Time Status Last Admin Dose Admin Sodium Chloride 1,000 ml @ 125 mls/hr Q8H IV 12/26/16 20:30 01/25/17 20:29 12/27/16 20:50 125 MLS/HR Ceftriaxone Sodium/Dextrose (Rocephin Inj/ Dextrose Add-[place] 50ML) 50 ml @ 100 mls/hr DAILY@1000 IV 12/27/16 10:00 01/06/17 09:59 12/28/16 11:25 100 MLS/HR Insulin Aspart (novoLOG ASPART) SLIDING SCALE If C... ACHS SC 12/26/16 21:00 01/25/17 20:59 12/28/16 11:54 6 UNITS Glucose (Glucose 40% Gel) 15-30 GRAMS 15 GRAMS... UD PRN PO 12/26/16 20:30 01/25/17 20:29 Glucose (Glucose Chew Tab) 4-8 Tablets 4 Tabl... UD PRN PO 12/26/16 20:30 01/25/17 20:29 Dextrose (Dextrose 50% 50ML Syringe) 25-50ML OF 50% DW IV FOR... UD PRN IV 12/26/16 20:30 01/25/17 20:29 Glucagon (Glucagon Inj) 1 mg UD PRN SQ 12/26/16 20:30 01/25/17 20:29 Miscellaneous Information (Consult Glycemic Management Pharmacy) 1 ea UD PRN N/A 12/26/16 20:38 01/25/17 20:37 Allopurinol (Zyloprim Tab) 200 mg Q2D@0900 PO 12/28/16 09:00 01/27/17 08:59 12/28/16 07:53 200 MG Atenolol (Tenormin Tab) 25 mg QAM PO 12/27/16 09:00 01/26/17 08:59 Future Hold Cyanocobalamin (Vitamin B-12 Tab) 500 mcg QPM PO 12/26/16 21:00 01/25/17 20:59 12/27/16 20:51 500 MCG Folic Acid (Folvite Tab) 1 mg QPM PO 12/26/16 21:00 01/25/17 20:59 12/27/16 20:51 1 MG Mirabegron (Myrbetriq Er) 25 mg QAM PO 12/27/16 09:00 01/26/17 08:59 12/28/16 07:53 25 MG Paroxetine HCl (pAXil TAB) 20 mg QAM PO 12/27/16 09:00 01/26/17 08:59 12/28/16 07:52 20 MG Simvastatin (Zocor Tab) 20 mg HS PO 12/26/16 21:00 01/25/17 20:59 12/27/16 20:52 20 MG Ferrous Sulfate (Feosol Tab) 325 mg BID PO 12/26/16 21:00 01/25/17 20:59 12/28/16 07:52 325 MG Acetaminophen (Tylenol Tab) 650 mg Q4H PRN PO 12/26/16 20:45 01/25/17 20:44 12/28/16 04:51 650 MG Pramipexole Dihydrochloride 0.125 mg 0.125 mg DAILY PRN PO 12/26/16 21:45 01/25/17 21:44 12/27/16 23:59 0.125 MG Metronidazole/Prmx (Flagyl / Nss/ Premixed Nss) 100 ml @ 100 mls/hr Q8H IV 12/27/16 12:00 01/06/17 11:59 12/28/16 12:57 100 MLS/HR Calcium Carbonate (Tums Chew Tab) 500 mg Q6H PRN PO 12/27/16 04:45 01/26/17 04:44 12/28/16 09:55 500 MG Lorazepam (Ativan Inj) 0.5 mg Q4H PRN IV 12/27/16 05:00 01/26/17 04:59 Ondansetron HCl 4 mg 4 mg Q6H PRN IV 12/27/16 05:15 01/26/17 05:14 Promethazine HCl/ Sodium Chloride (Phenergan Inj/ Nss 50ml) 50.5 ml @ 204 mls/hr Q6H PRN IV 12/27/16 05:15 01/26/17 05:14 Miscellaneous Information (Pending Order) 1 ea BID N/A 12/27/16 09:00 01/26/17 08:59 12/27/16 09:04 1 EA Insulin Glargine (Lantus Solostar Pen) 8 unit BID SC 12/28/16 21:00 01/27/17 20:59
[2016-12-28] MEDS: SODIUM CHLORIDE 0.65% NA SOLN 45 ML (OCEAN) SCH ×8 (16:00→22:00)
[2016-12-28] MEDS ORDERED: NURSING VERBAL MED ORDER ONE (16:15)
[2016-12-28] MEDS: OXYMETAZOLINE HCL 0.05% NA SPR 15 ML BTL SCH (19:36)
[2016-12-28] MEDS: CYANOCOBALAMIN 500 MCG TAB (VIT B-12) PO SCH (19:37)
[2016-12-28] MEDS: SIMVASTATIN 20 MG TAB PO SCH (19:37)
[2016-12-28 20:52] LABS: HEMATOCRIT 24.7 % (42-52)
[2016-12-28] MEDS ORDERED: INSULIN GLARGINE SOLOSTAR 100 UNITS/ML 3 ML PEN SC SCH (21:00)
[2016-12-28] MEDS ORDERED: HYDROmorphone INJ 0.5 MG/0.5 ML SYR IV PRN (21:00)
[2016-12-28] MEDS: TRAMADOL HCL 50 MG TAB PO PRN (22:40)
[2016-12-29 04:10] VITALS: BP 132/76; PULSE 93; TEMP 36.9; O2SAT 95
[2016-12-29] MEDS: SODIUM CHLORIDE 0.9% 1000ML 1,000 ML IV SCH ×3 (04:30→20:09)
[2016-12-29] MEDS: SODIUM CHLORIDE 0.65% NA SOLN 45 ML (OCEAN) SCH ×17 (05:36→22:00)
[2016-12-29 05:40] LABS: HEMATOCRIT 23.3 % (42-52); MEAN CELL VOLUME 88.9 fL (80-100); MEAN CORPUSCULAR HEMOGLOBIN 30.5 pg (25-34); MEAN CORPUSCULAR HGB CONC 34.3 g/dl (32-36); MEAN PLATELET VOLUME 8.9 fL (7.4-10.4); PLATELET COUNT 272 K/uL (130-400); RED BLOOD COUNT 2.62 M/uL (4.7-6.1); WHITE BLOOD COUNT 19.65 K/uL (4.8-10.8)
[2016-12-29 05:55] LABS: INR 1.7 (0.9-1.1)
[2016-12-29 06:15] LABS: BUN/CREATININE RATIO 23.7 (10-20); CALCIUM 7.9 mg/dl (8.5-10.1); CREATININE 2.9 mg/dl (0.60-1.40)
[2016-12-29] MEDS: INSULIN ASPART 100 UNITS/ML 3 ML PEN SC SCH ×4 (07:00→21:00)
[2016-12-29 07:57] VITALS: BP 130/76; PULSE 79; TEMP 36.8; O2SAT 93
--- NOTE | 2016-12-29 08:24 | Nephrology Progress Note ---
Nephrology Progress Note Date of Service: Dec 29, 2016. Subjective 76 yo male with atn from volume depletion and nsaids with lynn catheter in place. tolerating fluids well and creatinine improving nicely. urine clear with good output. appetite is better. mental status improved. Objective Date Time Temp Pulse Resp B/P Pulse Ox O2 Delivery O2 Flow Rate FiO2 12/29/16 07:57 36.8 79 24 130/76 93 12/29/16 04:10 36.9 93 22 132/76 95 Room Air 12/29/16 04:04 Room Air CPAP 12/29/16 00:01 Room Air CPAP 12/28/16 23:46 36.8 106 22 153/78 97 Room Air 12/28/16 20:39 Room Air CPAP 12/28/16 19:05 36.8 91 21 156/75 96 Room Air 12/28/16 16:00 Room Air CPAP 12/28/16 15:10 36.4 81 17 131/67 97 Room Air 12/28/16 12:00 Room Air 12/28/16 11:41 36.5 76 22 133/65 95 Physical Exam: General-aaox3 Eyes-no scleral icterus ENT-mmm Neck-supple Lungs-clear Heart-regular Abdomen-bs+ s/nt/nd Extremities-no c/c/e Neuro-nonfocal Current Inpatient Medications Medications (Trade) Dose Ordered Sig/Vipul Route Start Time Stop Time Status Last Admin Dose Admin Sodium Chloride 1,000 ml @ 125 mls/hr Q8H IV 12/26/16 20:30 01/25/17 20:29 12/29/16 04:30 125 MLS/HR Ceftriaxone Sodium/Dextrose (Rocephin Inj/ Dextrose Add-[place] 50ML) 50 ml @ 100 mls/hr DAILY@1000 IV 12/27/16 10:00 01/06/17 09:59 12/28/16 11:25 100 MLS/HR Insulin Aspart (novoLOG ASPART) SLIDING SCALE If C... ACHS SC 12/26/16 21:00 01/25/17 20:59 12/28/16 20:32 3 UNITS Glucose (Glucose 40% Gel) 15-30 GRAMS 15 GRAMS... UD PRN PO 12/26/16 20:30 01/25/17 20:29 Glucose (Glucose Chew Tab) 4-8 Tablets 4 Tabl... UD PRN PO 12/26/16 20:30 01/25/17 20:29 Dextrose (Dextrose 50% 50ML Syringe) 25-50ML OF 50% DW IV FOR... UD PRN IV 12/26/16 20:30 01/25/17 20:29 Glucagon (Glucagon Inj) 1 mg UD PRN SQ 12/26/16 20:30 01/25/17 20:29 Miscellaneous Information (Consult Glycemic Management Pharmacy) 1 ea UD PRN N/A 12/26/16 20:38 01/25/17 20:37 Allopurinol (Zyloprim Tab) 200 mg Q2D@0900 PO 12/28/16 09:00 01/27/17 08:59 12/28/16 07:53 200 MG Atenolol (Tenormin Tab) 25 mg QAM PO 12/27/16 09:00 01/26/17 08:59 Future Hold Cyanocobalamin (Vitamin B-12 Tab) 500 mcg QPM PO 12/26/16 21:00 01/25/17 20:59 12/28/16 19:37 500 MCG Folic Acid (Folvite Tab) 1 mg QPM PO 12/26/16 21:00 01/25/17 20:59 12/28/16 19:37 1 MG Mirabegron (Myrbetriq Er) 25 mg QAM PO 12/27/16 09:00 01/26/17 08:59 12/28/16 07:53 25 MG Paroxetine HCl (pAXil TAB) 20 mg QAM PO 12/27/16 09:00 01/26/17 08:59 12/28/16 07:52 20 MG Simvastatin (Zocor Tab) 20 mg HS PO 12/26/16 21:00 01/25/17 20:59 12/28/16 19:37 20 MG Ferrous Sulfate (Feosol Tab) 325 mg BID PO 12/26/16 21:00 01/25/17 20:59 12/28/16 19:36 325 MG Acetaminophen (Tylenol Tab) 650 mg Q4H PRN PO 12/26/16 20:45 01/25/17 20:44 12/28/16 04:51 650 MG Pramipexole Dihydrochloride (miraPEX TAB) 0.125 mg DAILY PRN PO 12/26/16 21:45 01/25/17 21:44 12/27/16 23:59 0.125 MG Calcium Carbonate (Tums Chew Tab) 500 mg Q6H PRN PO 12/27/16 04:45 01/26/17 04:44 12/28/16 19:42 500 MG Lorazepam (Ativan Inj) 0.5 mg Q4H PRN IV 12/27/16 05:00 01/26/17 04:59 12/28/16 22:34 0.5 MG Ondansetron HCl 4 mg 4 mg Q6H PRN IV 12/27/16 05:15 01/26/17 05:14 Promethazine HCl/ Sodium Chloride (Phenergan Inj/ Nss 50ml) 50.5 ml @ 204 mls/hr Q6H PRN IV 12/27/16 05:15 01/26/17 05:14 Oxymetazoline HCl (Afrin 0.05% Nasal [place]) 1 sprays Q12 NA 12/28/16 21:00 01/27/17 20:59 12/28/16 19:36 1 SPRAYS Sodium Chloride ([place] Nasal [place]) 1 sprays Q1HWA NA 12/28/16 16:00 01/27/17 15:59 12/28/16 20:29 1 SPRAYS Tramadol HCl (Ultram Tab) 25 mg Q6H PRN PO 12/28/16 21:00 01/27/17 20:59 12/28/16 22:40 25 MG Hydromorphone HCl (Dilaudid Inj) 0.5 mg Q3H PRN IV 12/28/16 21:00 01/11/17 20:59 Last 24 Hours Test 12/28/16 11:36 12/28/16 16:18 12/28/16 20:03 12/28/16 20:40 Bedside Glucose 168 mg/dl 120 mg/dl 210 mg/dl Hemoglobin 8.6 g/dL Hematocrit 24.7 % Test 12/29/16 05:30 12/29/16 07:16 12/29/16 07:17 12/29/16 07:42 White Blood Count 19.65 K/uL Red Blood Count 2.62 M/uL Hemoglobin 8.0 g/dL Hematocrit 23.3 % Mean Corpuscular Volume 88.9 fL Mean Corpuscular Hemoglobin 30.5 pg Mean Corpuscular Hemoglobin Concent 34.3 g/dl RDW Standard Deviation 45.5 fL RDW Coefficient of Variation 13.9 % Platelet Count 272 K/uL Mean Platelet Volume 8.9 fL Nucleated RBC Absolute Count (auto) 0.02 K/uL Nucleated Red Blood Cells % 0.1 % Prothrombin Time 19.0 SECONDS Prothromb Time International Ratio 1.7 Sodium Level 145 mmol/L Potassium Level 4.0 mmol/L Chloride Level 118 mmol/L Carbon Dioxide Level 16 mmol/L Anion Gap 11.0 mmol/L Blood Urea Nitrogen 69 mg/dl Creatinine 2.90 mg/dl Est Creatinine Clear Calc Drug Dose 27.6 ml/min Estimated GFR () 23.4 Estimated GFR (Non- 20.2 BUN/Creatinine Ratio 23.7 Random Glucose 63 mg/dl Calcium Level 7.9 mg/dl Bedside Glucose 56 mg/dl 57 mg/dl 62 mg/dl Assessment & Plan pip-ead-zki-oliguric-creatinine improving nicely from 5.4 to 2.9, continue current fluids. tolerating them well. has element of post atn diuresis and may have element of volume depletion. monitor is/os and follow electrolytes. could have k, mag and phos wasting.
[2016-12-29] MEDS: CEFTRIAXONE SOD INJ 1 GM in DEXTROSE 5% ADD-VANTAGE 50ML 50 ML IV SCH (08:59)
[2016-12-29] MEDS: MIRABEGRON ER 25 MG TAB PO SCH (08:59)
[2016-12-29] MEDS: OXYMETAZOLINE HCL 0.05% NA SPR 15 ML BTL SCH ×2 (08:59→20:10)
[2016-12-29] MEDS: PAROXETINE 20 MG TAB PO SCH (09:00)
[2016-12-29] MEDS: FERROUS SULFATE 325 MG TAB PO SCH ×2 (09:00→20:10)
[2016-12-29] MEDS: TRAMADOL HCL 50 MG TAB PO PRN (09:10)
--- NOTE | 2016-12-29 09:18 | Gastroenterology Progress Note ---
Progress Note Date of Service: Dec 29, 2016 Subjective Pt evaluation today including: conversation w/ patient, physical exam, chart review, lab review Pt was seen and examined this morning. He reports he is feeling much better this morning. Still has no GI complaints. Per nursing staff there was a formed black stool last night - pt is on iron. No bloody stools. No nose bleed since yesterday. INR this morning 1.7. Review of Systems Constitutional: No chills, No fever Respiratory: No shortness of breath Cardiac: No chest pain Abdomen: No constipation, No diarrhea, No nausea, No pain, No vomiting Medications Current Inpatient Medications Medications (Trade) Dose Ordered Sig/Vipul Route Start Time Stop Time Status Last Admin Dose Admin Sodium Chloride 1,000 ml @ 125 mls/hr Q8H IV 12/26/16 20:30 01/25/17 20:29 12/29/16 04:30 125 MLS/HR Ceftriaxone Sodium/Dextrose (Rocephin Inj/ Dextrose Add-[place] 50ML) 50 ml @ 100 mls/hr DAILY@1000 IV 12/27/16 10:00 01/06/17 09:59 12/29/16 08:59 100 MLS/HR Insulin Aspart (novoLOG ASPART) SLIDING SCALE If C... ACHS SC 12/26/16 21:00 01/25/17 20:59 12/28/16 20:32 3 UNITS Glucose (Glucose 40% Gel) 15-30 GRAMS 15 GRAMS... UD PRN PO 12/26/16 20:30 01/25/17 20:29 Glucose (Glucose Chew Tab) 4-8 Tablets 4 Tabl... UD PRN PO 12/26/16 20:30 01/25/17 20:29 12/29/16 07:50 4 TABS Dextrose (Dextrose 50% 50ML Syringe) 25-50ML OF 50% DW IV FOR... UD PRN IV 12/26/16 20:30 01/25/17 20:29 Glucagon (Glucagon Inj) 1 mg UD PRN SQ 12/26/16 20:30 01/25/17 20:29 Miscellaneous Information (Consult Glycemic Management Pharmacy) 1 ea UD PRN N/A 12/26/16 20:38 01/25/17 20:37 Allopurinol (Zyloprim Tab) 200 mg Q2D@0900 PO 12/28/16 09:00 01/27/17 08:59 12/28/16 07:53 200 MG Atenolol (Tenormin Tab) 25 mg QAM PO 12/27/16 09:00 01/26/17 08:59 Future Hold Cyanocobalamin (Vitamin B-12 Tab) 500 mcg QPM PO 12/26/16 21:00 01/25/17 20:59 12/28/16 19:37 500 MCG Folic Acid (Folvite Tab) 1 mg QPM PO 12/26/16 21:00 01/25/17 20:59 12/28/16 19:37 1 MG Mirabegron (Myrbetriq Er) 25 mg QAM PO 12/27/16 09:00 01/26/17 08:59 12/29/16 08:59 25 MG Paroxetine HCl (pAXil TAB) 20 mg QAM PO 12/27/16 09:00 01/26/17 08:59 12/29/16 09:00 20 MG Simvastatin (Zocor Tab) 20 mg HS PO 12/26/16 21:00 01/25/17 20:59 12/28/16 19:37 20 MG Ferrous Sulfate (Feosol Tab) 325 mg BID PO 12/26/16 21:00 01/25/17 20:59 12/29/16 09:00 325 MG Acetaminophen (Tylenol Tab) 650 mg Q4H PRN PO 12/26/16 20:45 01/25/17 20:44 12/28/16 04:51 650 MG Pramipexole Dihydrochloride (miraPEX TAB) 0.125 mg DAILY PRN PO 12/26/16 21:45 01/25/17 21:44 12/27/16 23:59 0.125 MG Calcium Carbonate (Tums Chew Tab) 500 mg Q6H PRN PO 12/27/16 04:45 01/26/17 04:44 12/28/16 19:42 500 MG Lorazepam (Ativan Inj) 0.5 mg Q4H PRN IV 12/27/16 05:00 01/26/17 04:59 12/28/16 22:34 0.5 MG Ondansetron HCl 4 mg 4 mg Q6H PRN IV 12/27/16 05:15 01/26/17 05:14 Promethazine HCl/ Sodium Chloride (Phenergan Inj/ Nss 50ml) 50.5 ml @ 204 mls/hr Q6H PRN IV 12/27/16 05:15 01/26/17 05:14 Oxymetazoline HCl (Afrin 0.05% Nasal [place]) 1 sprays Q12 NA 12/28/16 21:00 01/27/17 20:59 12/29/16 08:59 1 SPRAYS Sodium Chloride ([place] Nasal [place]) 1 sprays Q1HWA NA 12/28/16 16:00 01/27/17 15:59 12/29/16 09:05 1 SPRAYS Tramadol HCl (Ultram Tab) 25 mg Q6H PRN PO 12/28/16 21:00 01/27/17 20:59 12/29/16 09:10 25 MG Hydromorphone HCl (Dilaudid Inj) 0.5 mg Q3H PRN IV 12/28/16 21:00 01/11/17 20:59 Objective Vital Signs Date Time Temp Pulse Resp B/P Pulse Ox O2 Delivery O2 Flow Rate FiO2 12/29/16 07:57 36.8 79 24 130/76 93 12/29/16 04:10 36.9 93 22 132/76 95 Room Air 12/29/16 04:04 Room Air CPAP 12/29/16 00:01 Room Air CPAP 12/28/16 23:46 36.8 106 22 153/78 97 Room Air 12/28/16 20:39 Room Air CPAP 12/28/16 19:05 36.8 91 21 156/75 96 Room Air 12/28/16 16:00 Room Air CPAP 12/28/16 15:10 36.4 81 17 131/67 97 Room Air 12/28/16 12:00 Room Air 12/28/16 11:41 36.5 76 22 133/65 95 Physical Exam General Appearance: no apparent distress Eyes: PERRL ENT: hearing grossly normal Neck: supple, trachea midline Respiratory/Chest: lungs clear, normal breath sounds, no respiratory distress, no accessory muscle use Cardiovascular: regular rate, rhythm, no edema, no gallop, no JVD, no murmur Abdomen: normal bowel sounds, non tender, soft, no organomegaly Neurologic/Psych: alert, normal mood/affect, oriented x 3 Skin: normal color Laboratory Results Last 24 Hours Test 12/28/16 11:36 12/28/16 16:18 12/28/16 20:03 12/28/16 20:40 Bedside Glucose 168 mg/dl 120 mg/dl 210 mg/dl Hemoglobin 8.6 g/dL Hematocrit 24.7 % Test 12/29/16 05:30 12/29/16 07:16 12/29/16 07:17 12/29/16 07:42 White Blood Count 19.65 K/uL Red Blood Count 2.62 M/uL Hemoglobin 8.0 g/dL Hematocrit 23.3 % Mean Corpuscular Volume 88.9 fL Mean Corpuscular Hemoglobin 30.5 pg Mean Corpuscular Hemoglobin Concent 34.3 g/dl RDW Standard Deviation 45.5 fL RDW Coefficient of Variation 13.9 % Platelet Count 272 K/uL Mean Platelet Volume 8.9 fL Nucleated RBC Absolute Count (auto) 0.02 K/uL Nucleated Red Blood Cells % 0.1 % Prothrombin Time 19.0 SECONDS Prothromb Time International Ratio 1.7 Sodium Level 145 mmol/L Potassium Level 4.0 mmol/L Chloride Level 118 mmol/L Carbon Dioxide Level 16 mmol/L Anion Gap 11.0 mmol/L Blood Urea Nitrogen 69 mg/dl Creatinine 2.90 mg/dl Est Creatinine Clear Calc Drug Dose 27.6 ml/min Estimated GFR () 23.4 Estimated GFR (Non- 20.2 BUN/Creatinine Ratio 23.7 Random Glucose 63 mg/dl Calcium Level 7.9 mg/dl Bedside Glucose 56 mg/dl 57 mg/dl 62 mg/dl Test 12/29/16 08:20 Bedside Glucose 150 mg/dl Assessment and Plan Mr. Chau is a 76 year old male with bloody diarrhea x 10 days in the setting of Coumadin toxicity with an INR>8, WBC 35 and acute renal failure. Plan INR normalized IVF for hydration Trend H&H Monitor stools Transfuse as needed PPI BID as preventative Agree with flagyl coverage GI is "ok" for clear liquids - will leave NPO status up to primary team as no plan for GI intervention currently. Can plan for outpatient EGD/Colon or during admission if stable next week. GI will follow. Call with questions.
[2016-12-29 11:28] VITALS: BP 138/84; PULSE 87; TEMP 36.5; O2SAT 95
[2016-12-29] MEDS ORDERED: COUGH DROP (SUGAR FREE) LOZ 24 LOZ/1 BOX ONE (11:57)
[2016-12-29] MEDS ORDERED: COUGH DROP (SUGAR FREE) LOZ 24 LOZ/1 BOX PO PRN (12:15)
--- NOTE | 2016-12-29 12:41 | Pharmacy Progress Note ---
Glycemic: Assessment & Plan Date of Service Dec 29, 2016. Assessment & Plan Assessment * AM fasting BSG low at 57 mg/dL this AM after receiving a total of 18 units of Lantus yesterday (split 10 units qAM and 8 units qPM) * Will hold AM Lantus. Will resume at dinner tonight (at lower *daily* dose) to help gradually transition back to home schedule of HS Lantus dosing * Lunch BSG elevated to 272 mg/dL 2nd refusal of Novolog at breakfast. Does not require a change in Novolog at this time. Plan * Basal insulin: Adjust/decrease Lantus 14 units SC daily Administered at dinner on 12/29 then HS 12/30 and ongoing Decrease to 8 units for BSG < 100 mg/dL * Correctional Insulin: Novolog Correction per scale ACHS Goal Range: Low 110 mg/dL - High 150 mg/dL Correction Factor: 25 mg/dL/unit * Prandial insulin: Per carb ratio of 1 unit per 10 grams CHO consumed Pharmacy will continue to monitor patient daily and write orders per [facility] inpatient glycemic control protocol. Thanks. * Please note that the plan above was derived based on current level of insulin resistance and hospital stress. These recommendations are appropriate for inpatient admission only. Plan of care upon discharge will need to be reassessed to avoid potential outpatient hypo/hyperglycemia.
[2016-12-29 15:44] VITALS: BP 126/77; PULSE 88; TEMP 36.6; O2SAT 97
[2016-12-29] MEDS: INSULIN GLARGINE SOLOSTAR 100 UNITS/ML 3 ML PEN SC SCH (17:47)
[2016-12-29 19:45] VITALS: BP 139/82; PULSE 91; TEMP 36.6; O2SAT 98
[2016-12-29] MEDS: SIMVASTATIN 20 MG TAB PO SCH (20:10)
[2016-12-29] MEDS: CYANOCOBALAMIN 500 MCG TAB (VIT B-12) PO SCH (20:10)
--- NOTE | 2016-12-29 20:40 | Progress Note ---
Medicine Progress Note Date & Time of Visit: Dec 29, 2016 at 20:28. Subjective Pt was seen and examined Lying in bed comfortable with at bedside Pt said that he feels much better today he said that he had a BM today with dark stool no episode of nose bleeding denies any chest pain, palpitation, dizziness and sob Objective Last 8 Hrs Date Time Temp Pulse Resp B/P Pulse Ox O2 Delivery O2 Flow Rate FiO2 12/29/16 20:00 Room Air CPAP 12/29/16 19:45 36.6 91 20 139/82 98 Room Air 12/29/16 16:00 Room Air CPAP 12/29/16 15:44 36.6 88 22 126/77 97 Room Air Physical Exam: General- No distress Head- atraumatic Eyes- PERRL, EOMI ENT- oropharynx clear, dry mucosa Neck- supple, no JVD Lungs- clear to auscultation, no wheezing Heart- regular rhythm Abdomen- normal bowel sounds, soft, nontender Extremities- no calf tenderness Neuro- alert, oriented x 3; PERRL, EOMI; Skin- warm & dry Laboratory Results: Last 24 Hours Test 12/28/16 20:40 12/29/16 05:30 12/29/16 07:17 12/29/16 07:42 Hemoglobin 8.6 g/dL 8.0 g/dL Hematocrit 24.7 % 23.3 % White Blood Count 19.65 K/uL Red Blood Count 2.62 M/uL Mean Corpuscular Volume 88.9 fL Mean Corpuscular Hemoglobin 30.5 pg Mean Corpuscular Hemoglobin Concent 34.3 g/dl RDW Standard Deviation 45.5 fL RDW Coefficient of Variation 13.9 % Platelet Count 272 K/uL Mean Platelet Volume 8.9 fL Nucleated RBC Absolute Count (auto) 0.02 K/uL Nucleated Red Blood Cells % 0.1 % Prothrombin Time 19.0 SECONDS Prothromb Time International Ratio 1.7 Sodium Level 145 mmol/L Potassium Level 4.0 mmol/L Chloride Level 118 mmol/L Carbon Dioxide Level 16 mmol/L Anion Gap 11.0 mmol/L Blood Urea Nitrogen 69 mg/dl Creatinine 2.90 mg/dl Est Creatinine Clear Calc Drug Dose 27.6 ml/min Estimated GFR () 23.4 Estimated GFR (Non- 20.2 BUN/Creatinine Ratio 23.7 Random Glucose 63 mg/dl Calcium Level 7.9 mg/dl Bedside Glucose 57 mg/dl 62 mg/dl Test 12/29/16 08:20 12/29/16 11:22 12/29/16 16:02 12/29/16 20:01 Bedside Glucose 150 mg/dl 272 mg/dl 166 mg/dl 232 mg/dl Assessment & Plan ACUTE RENAL FAILURE LIKELY PRE RENAL FROM DIARRHEAL ILLNESS CONCOMITANT USE OF NSAIDS Creatine on admission 5.2 that improved to 4 today baseline creatine 0.8 creatine trending down today to 2.9 Renal US showed trace left perinephric fluid. No hydronephrosis Continue IVF Continue monitor I/O Nephrology on board- appreciate input No need for emergent HD GI bleed Due to Coumadin and NSAID Mostly due to INR supra therapeutic (INR >8) continue to have bloody diarrhea received Vit K hgb dropped to 7.3 last night Hgb this morning 8 GI consulted- appreciated input if h/h stable, will consider scope as an outpatient continue PPI negative stool for cdiff Will d/c flagyl since stool negative for cdiff monitor h/h q8 and transfused if hgb less than 8 Acute Blood Loss anemia Due to GI bleed Hbg dropped to 7.3 last night Transfused 1 unit PRBC so far during the admission course Hbg today 8.0 GI on board continue monitor h/h RECURRENT EPISTAXIS due to elevated INR s/p cauterization at the ER Vit k given INR dropped to 1.7 ENT consulted discussed case with Dr. Graham that recommended afrin spray BID and nasal pray q1h no episode of nose bleeding continue monitor LEUKOCYTOSIS R/O Sepsis WBC o 35K and hypotension on Admission trending down to 19K today Procalcitonin elevated urine cx positive for gram negative bacilli Continue empiric Ceftriaxone IV for UTI On Flagyl IV for possible cdiff UTI Urine cx growth E-coli present with WBC 35K afebrile Continue rocephin IV Monitor cbc MECHANICAL AORTIC VALVE INR > 8 on admission received Vit K INR today 1.7 monitor INR DM 2 hold Insulin and oral meds ISS for now Pharmacy consulted HYPERTENSION blood pressure on the lower side hold Lisinopril, Diltiazem, bb continue Atenolol JAMES CPAP ordered RESTLESS LEGS Pramipexole trial started monitor DVT prophylaxis INR 1.7 SCDs due to GI bleed Full code per patient Consultants: Gastro, ENT Current Inpatient Medications: Current Inpatient Medications Medications (Trade) Dose Ordered Sig/Vipul Route Start Time Stop Time Status Last Admin Dose Admin Sodium Chloride 1,000 ml @ 125 mls/hr Q8H IV 12/26/16 20:30 01/25/17 20:29 12/29/16 20:09 125 MLS/HR Ceftriaxone Sodium/Dextrose (Rocephin Inj/ Dextrose Add-[place] 50ML) 50 ml @ 100 mls/hr DAILY@1000 IV 12/27/16 10:00 01/06/17 09:59 12/29/16 08:59 100 MLS/HR Insulin Aspart (novoLOG ASPART) SLIDING SCALE If C... ACHS SC 12/26/16 21:00 01/25/17 20:59 12/29/16 17:46 7 UNITS Glucose (Glucose 40% Gel) 15-30 GRAMS 15 GRAMS... UD PRN PO 12/26/16 20:30 01/25/17 20:29 Glucose (Glucose Chew Tab) 4-8 Tablets 4 Tabl... UD PRN PO 12/26/16 20:30 01/25/17 20:29 12/29/16 07:50 4 TABS Dextrose (Dextrose 50% 50ML Syringe) 25-50ML OF 50% DW IV FOR... UD PRN IV 12/26/16 20:30 01/25/17 20:29 Glucagon (Glucagon Inj) 1 mg UD PRN SQ 12/26/16 20:30 01/25/17 20:29 Miscellaneous Information (Consult Glycemic Management Pharmacy) 1 ea UD PRN N/A 12/26/16 20:38 01/25/17 20:37 Allopurinol (Zyloprim Tab) 200 mg Q2D@0900 PO 12/28/16 09:00 01/27/17 08:59 12/28/16 07:53 200 MG Atenolol (Tenormin Tab) 25 mg QAM PO 12/27/16 09:00 01/26/17 08:59 Future Hold Cyanocobalamin (Vitamin B-12 Tab) 500 mcg QPM PO 12/26/16 21:00 01/25/17 20:59 12/29/16 20:10 500 MCG Folic Acid (Folvite Tab) 1 mg QPM PO 12/26/16 21:00 01/25/17 20:59 12/29/16 20:10 1 MG Mirabegron (Myrbetriq Er) 25 mg QAM PO 12/27/16 09:00 01/26/17 08:59 12/29/16 08:59 25 MG Paroxetine HCl (pAXil TAB) 20 mg QAM PO 12/27/16 09:00 01/26/17 08:59 12/29/16 09:00 20 MG Simvastatin (Zocor Tab) 20 mg HS PO 12/26/16 21:00 01/25/17 20:59 12/29/16 20:10 20 MG Ferrous Sulfate (Feosol Tab) 325 mg BID PO 12/26/16 21:00 01/25/17 20:59 12/29/16 20:10 325 MG Acetaminophen (Tylenol Tab) 650 mg Q4H PRN PO 12/26/16 20:45 01/25/17 20:44 12/28/16 04:51 650 MG Pramipexole Dihydrochloride (miraPEX TAB) 0.125 mg DAILY PRN PO 12/26/16 21:45 01/25/17 21:44 12/27/16 23:59 0.125 MG Calcium Carbonate (Tums Chew Tab) 500 mg Q6H PRN PO 12/27/16 04:45 01/26/17 04:44 12/28/16 19:42 500 MG Lorazepam (Ativan Inj) 0.5 mg Q4H PRN IV 12/27/16 05:00 01/26/17 04:59 12/28/16 22:34 0.5 MG Ondansetron HCl 4 mg 4 mg Q6H PRN IV 12/27/16 05:15 01/26/17 05:14 Promethazine HCl/ Sodium Chloride (Phenergan Inj/ Nss 50ml) 50.5 ml @ 204 mls/hr Q6H PRN IV 12/27/16 05:15 01/26/17 05:14 Oxymetazoline HCl (Afrin 0.05% Nasal [place]) 1 sprays Q12 NA 12/28/16 21:00 01/27/17 20:59 12/29/16 20:10 1 SPRAYS Sodium Chloride (Nogal Nasal [place]) 1 sprays Q1HWA NA 12/28/16 16:00 01/27/17 15:59 12/29/16 20:09 1 SPRAYS Tramadol HCl (Ultram Tab) 25 mg Q6H PRN PO 12/28/16 21:00 01/27/17 20:59 12/29/16 09:10 25 MG Hydromorphone HCl (Dilaudid Inj) 0.5 mg Q3H PRN IV 12/28/16 21:00 01/11/17 20:59 Menthol (Nice Adriel) 1 adriel PRN PRN PO 12/29/16 12:15 01/28/17 12:14 Insulin Glargine (Lantus Solostar Pen) HS SC 12/29/16 16:15 01/28/17 16:14 12/29/16 17:47 14 UNIT
[2016-12-29 22:04] LABS: HEMATOCRIT 25.2 % (42-52)
[2016-12-29 23:40] VITALS: BP 155/77; PULSE 89; TEMP 36.5; O2SAT 97
[2016-12-30] VITALS (14 sets, daily range): BP systolic 136–164; BP diastolic 69–89; PULSE 76–105; TEMP 36.4–37; O2SAT 84–99
[2016-12-30] MEDS: TRAMADOL HCL 50 MG TAB PO PRN (00:46)
[2016-12-30] MEDS: SODIUM CHLORIDE 0.9% 1000ML 1,000 ML IV SCH ×2 (04:57→12:26)
--- NOTE | 2016-12-30 06:38 | Nephrology Progress Note ---
Nephrology Progress Note Date of Service: Dec 30, 2016. Subjective 76 yo male with atn from volume depletion and nsaids with lynn catheter in place. tolerating fluids well. good urine output. pt having maroon colored stools and following h/h, GI following. for possible scope early next week if stable. Objective Date Time Temp Pulse Resp B/P Pulse Ox O2 Delivery O2 Flow Rate FiO2 12/30/16 04:23 36.7 79 24 161/70 94 Room Air 12/30/16 00:01 97 Room Air 2.0 12/29/16 23:40 36.5 89 20 155/77 97 Room Air 12/29/16 20:00 Room Air CPAP 12/29/16 19:45 36.6 91 20 139/82 98 Room Air 12/29/16 16:00 Room Air CPAP 12/29/16 15:44 36.6 88 22 126/77 97 Room Air 12/29/16 12:00 Room Air CPAP 12/29/16 11:28 36.5 87 20 138/84 95 12/29/16 08:00 Room Air CPAP 12/29/16 07:57 36.8 79 24 130/76 93 Physical Exam: General-[id number] Eyes-no scleral icterus ENT-mmm Neck-supple Lungs-cta Heart-rrr Abdomen-bs+ s/nt/nd Extremities-no c/c/e Neuro-nonfocal Current Inpatient Medications Medications (Trade) Dose Ordered Sig/Vipul Route Start Time Stop Time Status Last Admin Dose Admin Sodium Chloride 1,000 ml @ 125 mls/hr Q8H IV 12/26/16 20:30 01/25/17 20:29 12/30/16 04:57 125 MLS/HR Ceftriaxone Sodium/Dextrose (Rocephin Inj/ Dextrose Add-[place] 50ML) 50 ml @ 100 mls/hr DAILY@1000 IV 12/27/16 10:00 01/06/17 09:59 12/29/16 08:59 100 MLS/HR Insulin Aspart (novoLOG ASPART) SLIDING SCALE If C... ACHS SC 12/26/16 21:00 01/25/17 20:59 12/29/16 21:00 4 UNITS Glucose (Glucose 40% Gel) 15-30 GRAMS 15 GRAMS... UD PRN PO 12/26/16 20:30 01/25/17 20:29 Glucose (Glucose Chew Tab) 4-8 Tablets 4 Tabl... UD PRN PO 12/26/16 20:30 01/25/17 20:29 12/29/16 07:50 4 TABS Dextrose (Dextrose 50% 50ML Syringe) 25-50ML OF 50% DW IV FOR... UD PRN IV 12/26/16 20:30 01/25/17 20:29 Glucagon (Glucagon Inj) 1 mg UD PRN SQ 12/26/16 20:30 01/25/17 20:29 Miscellaneous Information (Consult Glycemic Management Pharmacy) 1 ea UD PRN N/A 12/26/16 20:38 01/25/17 20:37 Allopurinol (Zyloprim Tab) 200 mg Q2D@0900 PO 12/28/16 09:00 01/27/17 08:59 12/28/16 07:53 200 MG Atenolol (Tenormin Tab) 25 mg QAM PO 12/27/16 09:00 01/26/17 08:59 Future Hold Cyanocobalamin (Vitamin B-12 Tab) 500 mcg QPM PO 12/26/16 21:00 01/25/17 20:59 12/29/16 20:10 500 MCG Folic Acid (Folvite Tab) 1 mg QPM PO 12/26/16 21:00 01/25/17 20:59 12/29/16 20:10 1 MG Mirabegron (Myrbetriq Er) 25 mg QAM PO 12/27/16 09:00 01/26/17 08:59 12/29/16 08:59 25 MG Paroxetine HCl (pAXil TAB) 20 mg QAM PO 12/27/16 09:00 01/26/17 08:59 12/29/16 09:00 20 MG Simvastatin (Zocor Tab) 20 mg HS PO 12/26/16 21:00 01/25/17 20:59 12/29/16 20:10 20 MG Ferrous Sulfate (Feosol Tab) 325 mg BID PO 12/26/16 21:00 01/25/17 20:59 12/29/16 20:10 325 MG Acetaminophen (Tylenol Tab) 650 mg Q4H PRN PO 12/26/16 20:45 01/25/17 20:44 12/28/16 04:51 650 MG Pramipexole Dihydrochloride (miraPEX TAB) 0.125 mg DAILY PRN PO 12/26/16 21:45 01/25/17 21:44 12/27/16 23:59 0.125 MG Calcium Carbonate (Tums Chew Tab) 500 mg Q6H PRN PO 12/27/16 04:45 01/26/17 04:44 12/28/16 19:42 500 MG Lorazepam (Ativan Inj) 0.5 mg Q4H PRN IV 12/27/16 05:00 01/26/17 04:59 12/28/16 22:34 0.5 MG Ondansetron HCl 4 mg 4 mg Q6H PRN IV 12/27/16 05:15 01/26/17 05:14 Promethazine HCl/ Sodium Chloride (Phenergan Inj/ Nss 50ml) 50.5 ml @ 204 mls/hr Q6H PRN IV 12/27/16 05:15 01/26/17 05:14 Oxymetazoline HCl (Afrin 0.05% Nasal [place]) 1 sprays Q12 NA 12/28/16 21:00 01/27/17 20:59 12/29/16 20:10 1 SPRAYS Sodium Chloride (Carbon Nasal [place]) 1 sprays Q1HWA NA 12/28/16 16:00 01/27/17 15:59 12/29/16 20:09 1 SPRAYS Tramadol HCl (Ultram Tab) 25 mg Q6H PRN PO 12/28/16 21:00 01/27/17 20:59 12/30/16 00:46 25 MG Hydromorphone HCl (Dilaudid Inj) 0.5 mg Q3H PRN IV 12/28/16 21:00 01/11/17 20:59 Menthol (Nice Adriel) 1 adriel PRN PRN PO 12/29/16 12:15 01/28/17 12:14 Insulin Glargine (Lantus Solostar Pen) HS SC 12/29/16 16:15 01/28/17 16:14 12/29/16 17:47 14 UNIT Last 24 Hours Test 12/29/16 07:17 12/29/16 07:42 12/29/16 08:20 12/29/16 11:22 Bedside Glucose 57 mg/dl 62 mg/dl 150 mg/dl 272 mg/dl Test 12/29/16 16:02 12/29/16 20:01 12/29/16 21:55 12/30/16 06:27 Bedside Glucose 166 mg/dl 232 mg/dl Hemoglobin 8.7 g/dL Hematocrit 25.2 % Assessment & Plan [id number]-xxx-oliguric-creatinine improving nicely. labs pending for today. replete electrolytes prn. pt with large urine output and likely with post-atn diuresis although want to lower iv fluids rate to help concentrate the urine. monitor for volume depletion with the lower rate of iv fluids. pt though was a liter positive yesterday.
[2016-12-30] MEDS: SODIUM CHLORIDE 0.65% NA SOLN 45 ML (OCEAN) SCH ×3 (07:00→09:00)
[2016-12-30 07:09] LABS: HEMATOCRIT 22.5 % (42-52); MEAN CELL VOLUME 92.2 fL (80-100); MEAN CORPUSCULAR HEMOGLOBIN 31.6 pg (25-34); MEAN CORPUSCULAR HGB CONC 34.2 g/dl (32-36); PLATELET COUNT 319 K/uL (130-400); RED BLOOD COUNT 2.44 M/uL (4.7-6.1); WHITE BLOOD COUNT 15.29 K/uL (4.8-10.8)
[2016-12-30 07:24] LABS: INR 1.5 (0.9-1.1); PROTHROMBIN TIME (PATIENT) 15.9 SECONDS (9.0-12.0)
[2016-12-30 07:45] LABS: BUN/CREATININE RATIO 22.7 (10-20); CALCIUM 8.3 mg/dl (8.5-10.1); CREATININE 1.8 mg/dl (0.60-1.40); MAGNESIUM 1.5 mg/dl (1.8-2.4); PHOSPHORUS 2.5 mg/dl (2.5-4.9); POTASSIUM 3.9 mmol/L (3.5-5.1)
[2016-12-30] MEDS: INSULIN ASPART 100 UNITS/ML 3 ML PEN SC SCH ×4 (08:59→20:57)
[2016-12-30] MEDS: OXYMETAZOLINE HCL 0.05% NA SPR 15 ML BTL SCH ×2 (09:00→20:52)
[2016-12-30] MEDS: ALLOPURINOL 100 MG TAB PO SCH (09:02)
[2016-12-30] MEDS: FERROUS SULFATE 325 MG TAB PO SCH ×2 (09:02→20:52)
[2016-12-30] MEDS: MIRABEGRON ER 25 MG TAB PO SCH (09:02)
[2016-12-30] MEDS: PAROXETINE 20 MG TAB PO SCH (09:02)
[2016-12-30] MEDS: MAGNESIUM SULFATE 1GM / D5W 1 GM in PREMIXED IN D5W 100 ML IV SCH ×2 (09:04→10:01)
[2016-12-30] MEDS: CEFTRIAXONE SOD INJ 1 GM in DEXTROSE 5% ADD-VANTAGE 50ML 50 ML IV SCH (09:11)
[2016-12-30] MEDS ORDERED: NURSING VERBAL MED ORDER ONE (09:30)
[2016-12-30] MEDS ORDERED: SODIUM CHLORIDE 0.65% NA SOLN 45 ML (OCEAN) PRN (10:00)
--- NOTE | 2016-12-30 15:53 | Progress Note ---
Medicine Progress Note Date & Time of Visit: Dec 30, 2016 at 15:40. Subjective Pt was seen and examined Sitting in bed with no distress with her daughter and at bedside Eating lunch, he said that he feels tired this morning because he did not sleep well He continue to have bloody bowel movement denies any chest pain, palpitation, dizziness and sob Objective Last 8 Hrs Date Time Temp Pulse Resp B/P Pulse Ox O2 Delivery O2 Flow Rate FiO2 12/30/16 15:37 36.4 83 16 147/71 97 Room Air 12/30/16 14:45 37.0 99 18 148/86 95 12/30/16 14:26 37.0 83 18 140/89 94 12/30/16 13:54 36.9 91 16 150/77 97 12/30/16 12:00 Room Air 12/30/16 11:21 105 99 12/30/16 10:34 36.4 101 16 156/75 96 12/30/16 10:15 36.7 102 20 154/73 94 12/30/16 09:55 36.6 105 20 152/69 96 12/30/16 08:00 97 Room Air 2.0 12/30/16 07:56 36.7 76 18 136/69 95 Physical Exam: General- No distress Head- atraumatic Eyes- PERRL, EOMI ENT- oropharynx clear, dry mucosa Neck- supple, no JVD Lungs- clear to auscultation, no wheezing Heart- regular rhythm Abdomen- normal bowel sounds, soft, nontender Extremities- no calf tenderness Neuro- alert, oriented x 3; PERRL, EOMI; Skin- warm & dry Laboratory Results: Last 24 Hours Test 12/29/16 16:02 12/29/16 20:01 12/29/16 21:55 12/30/16 06:27 Bedside Glucose 166 mg/dl 232 mg/dl 137 mg/dl Hemoglobin 8.7 g/dL Hematocrit 25.2 % Test 12/30/16 06:55 12/30/16 11:08 White Blood Count 15.29 K/uL Red Blood Count 2.44 M/uL Hemoglobin 7.7 g/dL Hematocrit 22.5 % Mean Corpuscular Volume 92.2 fL Mean Corpuscular Hemoglobin 31.6 pg Mean Corpuscular Hemoglobin Concent 34.2 g/dl RDW Standard Deviation 48.4 fL RDW Coefficient of Variation 14.3 % Platelet Count 319 K/uL Mean Platelet Volume 9.0 fL Prothrombin Time 15.9 SECONDS Prothromb Time International Ratio 1.5 Sodium Level 145 mmol/L Potassium Level 3.9 mmol/L Chloride Level 118 mmol/L Carbon Dioxide Level 17 mmol/L Anion Gap 10.0 mmol/L Blood Urea Nitrogen 41 mg/dl Creatinine 1.80 mg/dl Est Creatinine Clear Calc Drug Dose 44.0 ml/min Estimated GFR () 41.7 Estimated GFR (Non- 36.0 BUN/Creatinine Ratio 22.7 Random Glucose 127 mg/dl Calcium Level 8.3 mg/dl Phosphorus Level 2.5 mg/dl Magnesium Level 1.5 mg/dl Bedside Glucose 263 mg/dl Assessment & Plan ACUTE RENAL FAILURE LIKELY PRE RENAL FROM DIARRHEAL ILLNESS CONCOMITANT USE OF NSAIDS Creatine on admission 5.2 that improved to 4 today baseline creatine 0.8 creatine trending down today to 1.8 Renal US showed trace left perinephric fluid. No hydronephrosis Decrease IVF Continue monitor I/O Nephrology on board- appreciate input No need for emergent HD GI bleed Due to Coumadin and NSAID Mostly due to INR supra therapeutic (INR >8) continue to have bloody diarrhea received Vit K during this admission Hgb this morning 7.7 transfused 2 unit prbc today GI consulted- appreciated input if h/h stable, will consider scope as an outpatient continue PPI negative stool for cdiff d/c flagyl since stool negative for cdiff monitor h/h q12 and transfused if hgb less than 8 Will discuss with GI for possible scope during this admission Acute Blood Loss anemia Due to GI bleed Hbg dropped to 7.7 Transfused 3 unit PRBC so far during the admission course GI on board continue monitor h/h 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 Graham that recommended afrin spray BID and nasal pray q1h no episode of nose bleeding continue monitor LEUKOCYTOSIS R/O Sepsis WBC o 35K and hypotension on Admission trending down to 15K today Procalcitonin elevated urine cx positive for gram negative bacilli Continue empiric Ceftriaxone IV for UTI On Flagyl IV for possible cdiff UTI Urine cx growth E-coli present with WBC 35K afebrile, WBC trending down Continue rocephin IV Monitor cbc MECHANICAL AORTIC VALVE INR > 8 on admission received Vit K INR today 1.5 monitor INR DM 2 hold Insulin and oral meds ISS for now Pharmacy consulted HYPERTENSION blood pressure on the lower side hold Lisinopril, Diltiazem, bb continue Atenolol JAMES CPAP ordered RESTLESS LEGS Pramipexole trial started monitor DVT prophylaxis INR 1.5 SCDs due to GI bleed Full code per patient Consultants: Gastro, ENT Current Inpatient Medications: Current Inpatient Medications Medications (Trade) Dose Ordered Sig/Vipul Route Start Time Stop Time Status Last Admin Dose Admin Sodium Chloride 1,000 ml @ 80 mls/hr [id number] IV 12/26/16 20:30 01/25/17 20:29 12/30/16 12:26 80 MLS/HR Ceftriaxone Sodium/Dextrose (Rocephin Inj/ Dextrose Add-[place] 50ML) 50 ml @ 100 mls/hr DAILY@1000 IV 12/27/16 10:00 01/06/17 09:59 12/30/16 09:11 100 MLS/HR Insulin Aspart (novoLOG ASPART) SLIDING SCALE If C... ACHS SC 12/26/16 21:00 01/25/17 20:59 12/30/16 12:25 13 UNITS Glucose (Glucose 40% Gel) 15-30 GRAMS 15 GRAMS... UD PRN PO 12/26/16 20:30 01/25/17 20:29 Glucose (Glucose Chew Tab) 4-8 Tablets 4 Tabl... UD PRN PO 12/26/16 20:30 01/25/17 20:29 12/29/16 07:50 4 TABS Dextrose (Dextrose 50% 50ML Syringe) 25-50ML OF 50% DW IV FOR... UD PRN IV 12/26/16 20:30 01/25/17 20:29 Glucagon (Glucagon Inj) 1 mg UD PRN SQ 12/26/16 20:30 01/25/17 20:29 Miscellaneous Information (Consult Glycemic Management Pharmacy) 1 ea UD PRN N/A 12/26/16 20:38 01/25/17 20:37 Allopurinol (Zyloprim Tab) 200 mg Q2D@0900 PO 12/28/16 09:00 01/27/17 08:59 12/30/16 09:02 200 MG Atenolol (Tenormin Tab) 25 mg QAM PO 12/27/16 09:00 01/26/17 08:59 Future Hold Cyanocobalamin (Vitamin B-12 Tab) 500 mcg QPM PO 12/26/16 21:00 01/25/17 20:59 12/29/16 20:10 500 MCG Folic Acid (Folvite Tab) 1 mg QPM PO 12/26/16 21:00 01/25/17 20:59 12/29/16 20:10 1 MG Mirabegron (Myrbetriq Er) 25 mg QAM PO 12/27/16 09:00 01/26/17 08:59 12/30/16 09:02 25 MG Paroxetine HCl (pAXil TAB) 20 mg QAM PO 12/27/16 09:00 01/26/17 08:59 12/30/16 09:02 20 MG Simvastatin (Zocor Tab) 20 mg HS PO 12/26/16 21:00 01/25/17 20:59 12/29/16 20:10 20 MG Ferrous Sulfate (Feosol Tab) 325 mg BID PO 12/26/16 21:00 01/25/17 20:59 12/30/16 09:02 325 MG Acetaminophen (Tylenol Tab) 650 mg Q4H PRN PO 12/26/16 20:45 01/25/17 20:44 12/28/16 04:51 650 MG Pramipexole Dihydrochloride (miraPEX TAB) 0.125 mg DAILY PRN PO 12/26/16 21:45 01/25/17 21:44 12/27/16 23:59 0.125 MG Calcium Carbonate (Tums Chew Tab) 500 mg Q6H PRN PO 12/27/16 04:45 01/26/17 04:44 12/28/16 19:42 500 MG Lorazepam (Ativan Inj) 0.5 mg Q4H PRN IV 12/27/16 05:00 01/26/17 04:59 12/28/16 22:34 0.5 MG Ondansetron HCl 4 mg 4 mg Q6H PRN IV 12/27/16 05:15 01/26/17 05:14 Promethazine HCl/ Sodium Chloride (Phenergan Inj/ Nss 50ml) 50.5 ml @ 204 mls/hr Q6H PRN IV 12/27/16 05:15 01/26/17 05:14 Oxymetazoline HCl (Afrin 0.05% Nasal [place]) 1 sprays Q12 NA 12/28/16 21:00 01/27/17 20:59 12/29/16 20:10 1 SPRAYS Tramadol HCl (Ultram Tab) 25 mg Q6H PRN PO 12/28/16 21:00 01/27/17 20:59 12/30/16 00:46 25 MG Hydromorphone HCl (Dilaudid Inj) 0.5 mg Q3H PRN IV 12/28/16 21:00 01/11/17 20:59 Menthol (Nice Adriel) 1 adriel PRN PRN PO 12/29/16 12:15 01/28/17 12:14 Insulin Glargine (Lantus Solostar Pen) HS SC 12/29/16 16:15 01/28/17 16:14 12/29/16 17:47 14 UNIT Sodium Chloride ([place] Nasal [place]) 1 sprays Q1HWA PRN NA 12/30/16 10:00 01/29/17 15:59
[2016-12-30] MEDS: CYANOCOBALAMIN 500 MCG TAB (VIT B-12) PO SCH (20:52)
[2016-12-30] MEDS: SIMVASTATIN 20 MG TAB PO SCH (20:52)
[2016-12-30] MEDS: INSULIN GLARGINE SOLOSTAR 100 UNITS/ML 3 ML PEN SC SCH (20:58)
[2016-12-30 21:16] LABS: HEMATOCRIT 25.5 % (42-52)
[2016-12-31] VITALS (9 sets, daily range): BP systolic 131–177; BP diastolic 56–76; PULSE 87–112; TEMP 36.4–36.9; O2SAT 95–98
[2016-12-31] MEDS: SODIUM CHLORIDE 0.9% 1000ML 1,000 ML IV SCH ×2 (03:43→20:52)
[2016-12-31 06:20] LABS: HEMATOCRIT 25.2 % (42-52); MEAN CELL VOLUME 88.1 fL (80-100); MEAN CORPUSCULAR HEMOGLOBIN 29.7 pg (25-34); MEAN CORPUSCULAR HGB CONC 33.7 g/dl (32-36); MEAN PLATELET VOLUME 8.7 fL (7.4-10.4); PLATELET COUNT 311 K/uL (130-400); RED BLOOD COUNT 2.86 M/uL (4.7-6.1); WHITE BLOOD COUNT 16.33 K/uL (4.8-10.8)
[2016-12-31 07:01] LABS: BUN/CREATININE RATIO 17.2 (10-20); CALCIUM 8.4 mg/dl (8.5-10.1); CREATININE 1.5 mg/dl (0.60-1.40); MAGNESIUM 1.2 mg/dl (1.8-2.4); POTASSIUM 3.9 mmol/L (3.5-5.1)
[2016-12-31] MEDS: OXYMETAZOLINE HCL 0.05% NA SPR 15 ML BTL SCH ×2 (07:50→20:52)
[2016-12-31] MEDS: MIRABEGRON ER 25 MG TAB PO SCH (07:50)
[2016-12-31] MEDS: FERROUS SULFATE 325 MG TAB PO SCH ×2 (07:50→20:52)
[2016-12-31] MEDS: PAROXETINE 20 MG TAB PO SCH (07:50)
[2016-12-31] MEDS: INSULIN ASPART 100 UNITS/ML 3 ML PEN SC SCH ×4 (07:52→20:55)
[2016-12-31] MEDS: MAGNESIUM SULFATE 1GM / D5W 1 GM in PREMIXED IN D5W 100 ML IV SCH ×4 (08:21→12:36)
--- NOTE | 2016-12-31 09:06 | Gastroenterology Progress Note ---
Progress Note Date of Service: Dec 31, 2016 Subjective Pt evaluation today including: conversation w/ family, physical exam Patient with persistent scant hematochezia despite reversal of his anticoagulation. He denies any abdominal pain nausea or vomiting. He has had a prior colonoscopy approximately 3 years ago notable for internal hemorrhoids and diverticulosis Review of Systems Constitutional: No fatigue, No fever, No sweats Eyes: No diplopia, No worsening of vision Respiratory: No cough, No dyspnea at rest, No dyspnea on exertion Cardiac: No PND, No chest pain, No palpitations Medications Current Inpatient Medications Medications (Trade) Dose Ordered Sig/Vipul Route Start Time Stop Time Status Last Admin Dose Admin Sodium Chloride 1,000 ml @ 80 mls/hr [id number] IV 12/26/16 20:30 01/25/17 20:29 12/31/16 03:43 80 MLS/HR Ceftriaxone Sodium/Dextrose (Rocephin Inj/ Dextrose Add-[place] 50ML) 50 ml @ 100 mls/hr DAILY@1000 IV 12/27/16 10:00 01/06/17 09:59 12/30/16 09:11 100 MLS/HR Insulin Aspart (novoLOG ASPART) SLIDING SCALE If C... ACHS SC 12/26/16 21:00 01/25/17 20:59 12/31/16 07:52 10 UNITS Glucose (Glucose 40% Gel) 15-30 GRAMS 15 GRAMS... UD PRN PO 12/26/16 20:30 01/25/17 20:29 Glucose (Glucose Chew Tab) 4-8 Tablets 4 Tabl... UD PRN PO 12/26/16 20:30 01/25/17 20:29 12/29/16 07:50 4 TABS Dextrose (Dextrose 50% 50ML Syringe) 25-50ML OF 50% DW IV FOR... UD PRN IV 12/26/16 20:30 01/25/17 20:29 Glucagon (Glucagon Inj) 1 mg UD PRN SQ 12/26/16 20:30 01/25/17 20:29 Miscellaneous Information (Consult Glycemic Management Pharmacy) 1 ea UD PRN N/A 12/26/16 20:38 01/25/17 20:37 Allopurinol (Zyloprim Tab) 200 mg Q2D@0900 PO 12/28/16 09:00 01/27/17 08:59 12/30/16 09:02 200 MG Atenolol (Tenormin Tab) 25 mg QAM PO 12/27/16 09:00 01/26/17 08:59 Future Hold Cyanocobalamin (Vitamin B-12 Tab) 500 mcg QPM PO 12/26/16 21:00 01/25/17 20:59 12/30/16 20:52 500 MCG Folic Acid (Folvite Tab) 1 mg QPM PO 12/26/16 21:00 01/25/17 20:59 12/30/16 20:53 1 MG Mirabegron (Myrbetriq Er) 25 mg QAM PO 12/27/16 09:00 01/26/17 08:59 12/31/16 07:50 25 MG Paroxetine HCl (pAXil TAB) 20 mg QAM PO 12/27/16 09:00 01/26/17 08:59 12/31/16 07:50 20 MG Simvastatin (Zocor Tab) 20 mg HS PO 12/26/16 21:00 01/25/17 20:59 12/30/16 20:52 20 MG Ferrous Sulfate (Feosol Tab) 325 mg BID PO 12/26/16 21:00 01/25/17 20:59 12/31/16 07:50 325 MG Acetaminophen (Tylenol Tab) 650 mg Q4H PRN PO 12/26/16 20:45 01/25/17 20:44 12/28/16 04:51 650 MG Pramipexole Dihydrochloride (miraPEX TAB) 0.125 mg DAILY PRN PO 12/26/16 21:45 01/25/17 21:44 12/27/16 23:59 0.125 MG Calcium Carbonate (Tums Chew Tab) 500 mg Q6H PRN PO 12/27/16 04:45 01/26/17 04:44 12/28/16 19:42 500 MG Lorazepam (Ativan Inj) 0.5 mg Q4H PRN IV 12/27/16 05:00 01/26/17 04:59 12/28/16 22:34 0.5 MG Ondansetron HCl 4 mg 4 mg Q6H PRN IV 12/27/16 05:15 01/26/17 05:14 Promethazine HCl/ Sodium Chloride (Phenergan Inj/ Nss 50ml) 50.5 ml @ 204 mls/hr Q6H PRN IV 12/27/16 05:15 01/26/17 05:14 Oxymetazoline HCl (Afrin 0.05% Nasal [place]) 1 sprays Q12 NA 12/28/16 21:00 01/27/17 20:59 12/31/16 07:50 1 SPRAYS Tramadol HCl (Ultram Tab) 25 mg Q6H PRN PO 12/28/16 21:00 01/27/17 20:59 12/30/16 00:46 25 MG Hydromorphone HCl (Dilaudid Inj) 0.5 mg Q3H PRN IV 12/28/16 21:00 01/11/17 20:59 Menthol (Nice Adriel) 1 adriel PRN PRN PO 12/29/16 12:15 01/28/17 12:14 Insulin Glargine (Lantus Solostar Pen) HS SC 12/29/16 16:15 01/28/17 16:14 12/30/16 20:58 14 UNIT Sodium Chloride ([place] Nasal [place]) 1 sprays Q1HWA PRN NA 12/30/16 10:00 01/29/17 15:59 Polyethylene Glycol/ Electrolytes 16 dose 16 dose TODAY@1600 PO 12/31/16 16:00 12/31/16 20:00 Magnesium Sulfate/ Prmx (Magnesium Sulfate/Premixed D5W) 100 ml @ 100 mls/hr Q1H IV 12/31/16 08:00 12/31/16 11:59 12/31/16 08:21 100 MLS/HR Objective Vital Signs Date Time Temp Pulse Resp B/P Pulse Ox O2 Delivery O2 Flow Rate FiO2 12/31/16 08:25 36.9 112 24 131/73 95 12/31/16 08:00 Room Air 12/31/16 04:00 95 Room Air 12/31/16 03:48 36.7 92 20 142/66 95 Room Air 12/31/16 00:01 95 Room Air 12/31/16 00:00 36.7 97 20 147/72 95 Room Air 12/30/16 20:00 Room Air 12/30/16 19:33 36.7 96 16 164/80 96 Room Air 12/30/16 16:00 Room Air 12/30/16 15:37 36.4 83 16 147/71 97 Room Air 12/30/16 14:45 37.0 99 18 148/86 95 12/30/16 14:26 37.0 83 18 140/89 94 12/30/16 13:54 36.9 91 16 150/77 97 12/30/16 12:00 Room Air 12/30/16 11:21 105 99 12/30/16 10:34 36.4 101 16 156/75 96 12/30/16 10:15 36.7 102 20 154/73 94 12/30/16 09:55 36.6 105 20 152/69 96 Physical Exam General Appearance: no apparent distress Neck: no JVD Respiratory/Chest: lungs clear Cardiovascular: regular rate, rhythm, + systolic murmur Abdomen: non tender, soft Extremities: non-tender Neurologic/Psych: oriented x 3 Skin: no jaundice Laboratory Results Last 24 Hours Test 12/30/16 11:08 12/30/16 16:14 12/30/16 20:16 12/30/16 20:59 Bedside Glucose 263 mg/dl 112 mg/dl 218 mg/dl Hemoglobin 8.6 g/dL Hematocrit 25.5 % Test 12/31/16 05:58 12/31/16 06:34 12/31/16 08:58 White Blood Count 16.33 K/uL Red Blood Count 2.86 M/uL Hemoglobin 8.5 g/dL Hematocrit 25.2 % Mean Corpuscular Volume 88.1 fL Mean Corpuscular Hemoglobin 29.7 pg Mean Corpuscular Hemoglobin Concent 33.7 g/dl RDW Standard Deviation 53.3 fL RDW Coefficient of Variation 16.5 % Platelet Count 311 K/uL Mean Platelet Volume 8.7 fL Sodium Level 145 mmol/L Potassium Level 3.9 mmol/L Chloride Level 117 mmol/L Carbon Dioxide Level 19 mmol/L Anion Gap 9.0 mmol/L Blood Urea Nitrogen 26 mg/dl Creatinine 1.50 mg/dl Est Creatinine Clear Calc Drug Dose 52.7 ml/min Estimated GFR () 52.0 Estimated GFR (Non- 44.9 BUN/Creatinine Ratio 17.2 Random Glucose 179 mg/dl Calcium Level 8.4 mg/dl Magnesium Level 1.2 mg/dl Bedside Glucose 173 mg/dl Assessment and Plan Patient with a history of recurrent hematochezia. Based on his symptoms I suspect this is anorectal etiology most likely from internal hemorrhoids. Given his persistent symptoms we will proceed with a repeat colonoscopy to evaluate for more sinister pathology. Plan Colonoscopy on Sunday Bowel preparation discussed with the internal medicine service (Kaya due to hx of renal failure)
[2016-12-31] MEDS: CEFTRIAXONE SOD INJ 1 GM in DEXTROSE 5% ADD-VANTAGE 50ML 50 ML IV SCH (11:18)
[2016-12-31 11:24] LABS: INR 1.3 (0.9-1.1)
--- NOTE | 2016-12-31 12:18 | Progress Note ---
Medicine Progress Note Date & Time of Visit: Dec 31, 2016 at 12:06. Subjective Pt was seen and examined Sitting at the edge of the bed with no distress Pt said that he feels great today He said that he had 2 BM this morning (1st BM was tarry dark and the 2nd one was bright red) Denies any chest pain, palpitation, dizziness and SOB Objective Last 8 Hrs Date Time Temp Pulse Resp B/P Pulse Ox O2 Delivery O2 Flow Rate FiO2 12/31/16 11:47 36.9 96 18 136/65 98 12/31/16 08:25 36.9 112 24 131/73 95 12/31/16 08:00 Room Air Physical Exam: General- No distress Head- atraumatic Eyes- PERRL, EOMI ENT- oropharynx clear, dry mucosa Neck- supple, no JVD Lungs- clear to auscultation, no wheezing Heart- regular rhythm Abdomen- normal bowel sounds, soft, nontender Extremities- no calf tenderness Neuro- alert, oriented x 3; PERRL, EOMI; Skin- warm & dry Laboratory Results: Last 24 Hours Test 12/30/16 16:14 12/30/16 20:16 12/30/16 20:59 12/31/16 05:58 Bedside Glucose 112 mg/dl 218 mg/dl Hemoglobin 8.6 g/dL 8.5 g/dL Hematocrit 25.5 % 25.2 % White Blood Count 16.33 K/uL Red Blood Count 2.86 M/uL Mean Corpuscular Volume 88.1 fL Mean Corpuscular Hemoglobin 29.7 pg Mean Corpuscular Hemoglobin Concent 33.7 g/dl RDW Standard Deviation 53.3 fL RDW Coefficient of Variation 16.5 % Platelet Count 311 K/uL Mean Platelet Volume 8.7 fL Sodium Level 145 mmol/L Potassium Level 3.9 mmol/L Chloride Level 117 mmol/L Carbon Dioxide Level 19 mmol/L Anion Gap 9.0 mmol/L Blood Urea Nitrogen 26 mg/dl Creatinine 1.50 mg/dl Est Creatinine Clear Calc Drug Dose 52.7 ml/min Estimated GFR () 52.0 Estimated GFR (Non- 44.9 BUN/Creatinine Ratio 17.2 Random Glucose 179 mg/dl Calcium Level 8.4 mg/dl Magnesium Level 1.2 mg/dl Test 12/31/16 06:34 12/31/16 10:53 12/31/16 11:23 Bedside Glucose 173 mg/dl 283 mg/dl Prothrombin Time 14.0 SECONDS Prothromb Time International Ratio 1.3 Assessment & Plan ACUTE RENAL FAILURE LIKELY PRE RENAL FROM DIARRHEAL ILLNESS CONCOMITANT USE OF NSAIDS Creatine on admission 5.2 that improved to 4 today baseline creatine 0.8 creatine trending down today to 1.5 Renal US showed trace left perinephric fluid. No hydronephrosis Decrease IVF Continue monitor I/O Nephrology on board- appreciate input No need for emergent HD Stable GI bleed Due to Coumadin and NSAID Mostly due to INR supra therapeutic (INR >8) continue to have bloody diarrhea received Vit K during this admission Hgb this morning 8.5 transfused 2 unit prbc 12/30/16 GI consulted- appreciated input if h/h stable, will consider scope as an outpatient continue PPI negative stool for cdiff d/c flagyl since stool negative for cdiff monitor h/h and transfused if hgb less than 8 Bowel prep with Golytely today to prep for colonoscopy tomorrow Continue clear liquid diet NPO after midnight Acute Blood Loss anemia Due to GI bleed Hbg 8.5 today Transfused 3 unit PRBC so far during the admission course GI on board continue monitor h/h Plan for colonoscopy tomorrow RECURRENT EPISTAXIS due to elevated INR s/p cauterization at the ER Vit k given INR dropped to 1.3 ENT consulted discussed case with Dr. Graham that recommended afrin spray BID and nasal pray q1h no episode of nose bleeding continue monitor LEUKOCYTOSIS R/O Sepsis WBC o 35K and hypotension on Admission WBC 16K today Procalcitonin elevated urine cx positive for E.Coli Continue empiric Ceftriaxone IV for UTI Flagyl D/C UTI Urine cx growth E-coli present with WBC 35K afebrile, WBC trending down Continue rocephin IV Monitor cbc MECHANICAL AORTIC VALVE INR > 8 on admission received Vit K INR today 1.3 monitor INR DM 2 hold Insulin and oral meds ISS for now Pharmacy consulted HYPERTENSION blood pressure on the lower side hold Lisinopril, Diltiazem, bb continue Atenolol JAMES CPAP ordered RESTLESS LEGS Pramipexole trial started monitor DVT prophylaxis INR 1.3 SCDs due to GI bleed Full code per patient Consultants: Gastro Current Inpatient Medications: Current Inpatient Medications Medications (Trade) Dose Ordered Sig/Vipul Route Start Time Stop Time Status Last Admin Dose Admin Sodium Chloride 1,000 ml @ 80 mls/hr [id number] IV 12/26/16 20:30 01/25/17 20:29 12/31/16 03:43 80 MLS/HR Ceftriaxone Sodium/Dextrose (Rocephin Inj/ Dextrose Add-[place] 50ML) 50 ml @ 100 mls/hr DAILY@1000 IV 12/27/16 10:00 01/06/17 09:59 12/31/16 11:18 100 MLS/HR Insulin Aspart (novoLOG ASPART) SLIDING SCALE If C... ACHS SC 12/26/16 21:00 01/25/17 20:59 12/31/16 07:52 10 UNITS Glucose (Glucose 40% Gel) 15-30 GRAMS 15 GRAMS... UD PRN PO 12/26/16 20:30 01/25/17 20:29 Glucose (Glucose Chew Tab) 4-8 Tablets 4 Tabl... UD PRN PO 12/26/16 20:30 01/25/17 20:29 12/29/16 07:50 4 TABS Dextrose (Dextrose 50% 50ML Syringe) 25-50ML OF 50% DW IV FOR... UD PRN IV 12/26/16 20:30 01/25/17 20:29 Glucagon (Glucagon Inj) 1 mg UD PRN SQ 12/26/16 20:30 01/25/17 20:29 Miscellaneous Information (Consult Glycemic Management Pharmacy) 1 ea UD PRN N/A 12/26/16 20:38 01/25/17 20:37 Allopurinol (Zyloprim Tab) 200 mg Q2D@0900 PO 12/28/16 09:00 01/27/17 08:59 12/30/16 09:02 200 MG Atenolol (Tenormin Tab) 25 mg QAM PO 12/27/16 09:00 01/26/17 08:59 Future Hold Cyanocobalamin (Vitamin B-12 Tab) 500 mcg QPM PO 12/26/16 21:00 01/25/17 20:59 12/30/16 20:52 500 MCG Folic Acid (Folvite Tab) 1 mg QPM PO 12/26/16 21:00 01/25/17 20:59 12/30/16 20:53 1 MG Mirabegron (Myrbetriq Er) 25 mg QAM PO 12/27/16 09:00 01/26/17 08:59 12/31/16 07:50 25 MG Paroxetine HCl (pAXil TAB) 20 mg QAM PO 12/27/16 09:00 01/26/17 08:59 12/31/16 07:50 20 MG Simvastatin (Zocor Tab) 20 mg HS PO 12/26/16 21:00 01/25/17 20:59 12/30/16 20:52 20 MG Ferrous Sulfate (Feosol Tab) 325 mg BID PO 12/26/16 21:00 01/25/17 20:59 12/31/16 07:50 325 MG Acetaminophen (Tylenol Tab) 650 mg Q4H PRN PO 12/26/16 20:45 01/25/17 20:44 12/28/16 04:51 650 MG Pramipexole Dihydrochloride (miraPEX TAB) 0.125 mg DAILY PRN PO 12/26/16 21:45 01/25/17 21:44 12/27/16 23:59 0.125 MG Calcium Carbonate (Tums Chew Tab) 500 mg Q6H PRN PO 12/27/16 04:45 01/26/17 04:44 12/28/16 19:42 500 MG Lorazepam (Ativan Inj) 0.5 mg Q4H PRN IV 12/27/16 05:00 01/26/17 04:59 12/28/16 22:34 0.5 MG Ondansetron HCl 4 mg 4 mg Q6H PRN IV 12/27/16 05:15 01/26/17 05:14 Promethazine HCl/ Sodium Chloride (Phenergan Inj/ Nss 50ml) 50.5 ml @ 204 mls/hr Q6H PRN IV 12/27/16 05:15 01/26/17 05:14 Oxymetazoline HCl (Afrin 0.05% Nasal [place]) 1 sprays Q12 NA 12/28/16 21:00 01/27/17 20:59 12/31/16 07:50 1 SPRAYS Tramadol HCl (Ultram Tab) 25 mg Q6H PRN PO 12/28/16 21:00 01/27/17 20:59 4/1/17 00:46 25 MG Hydromorphone HCl (Dilaudid Inj) 0.5 mg Q3H PRN IV 12/28/16 21:00 01/11/17 20:59 Menthol (Nice Adriel) 1 adriel PRN PRN PO 12/29/16 12:15 01/28/17 12:14 Insulin Glargine (Lantus Solostar Pen) HS SC 12/29/16 16:15 01/28/17 16:14 12/30/16 20:58 14 UNIT Sodium Chloride ([place] Nasal [place]) 1 sprays Q1HWA PRN NA 12/30/16 10:00 01/29/17 15:59 Polyethylene Glycol/ Electrolytes (Golytely Soln) 16 dose TODAY@1600 PO 12/31/16 16:00 12/31/16 20:00
--- NOTE | 2016-12-31 13:05 | Pharmacy Progress Note ---
Glycemic: Assessment & Plan Date of Service Dec 31, 2016. Assessment & Plan Assessment * BSG's ranging 112-283 mg/dL over the last 24 hours * Patient scheduled for colonoscopy 01/01. NPO p 0000 in anticipation * Will decrease Lantus x1 tonight * Carb ratio tightened yesterday at dinner. Not enough data at this time to adjust further Plan * Basal insulin: Decrease Lantus x1 tonight to 10 units (1/2 dose for BSG < 100 mg/dL). Increase back to 14 units qHS tomorrow. * Correctional Insulin: Novolog Correction per scale ACHS Goal Range: Low 110 mg/dL - High 140 mg/dL Correction Factor: 25 mg/dL/unit * Prandial insulin: Per carb ratio of 1 unit per 9 grams CHO consumed Pharmacy will continue to monitor patient daily and write orders per [facility] inpatient glycemic control protocol. Thanks. * Please note that the plan above was derived based on current level of insulin resistance and hospital stress. These recommendations are appropriate for inpatient admission only. Plan of care upon discharge will need to be reassessed to avoid potential outpatient hypo/hyperglycemia.
[2016-12-31] MEDS ORDERED: LAVAGE SOLUTION 4000ML PO SCH (16:00)
[2016-12-31 20:16] LABS: HEMATOCRIT 27.5 % (42-52)
[2016-12-31] MEDS: SIMVASTATIN 20 MG TAB PO SCH (20:52)
[2016-12-31] MEDS: CYANOCOBALAMIN 500 MCG TAB (VIT B-12) PO SCH (20:52)
[2016-12-31] MEDS: INSULIN GLARGINE SOLOSTAR 100 UNITS/ML 3 ML PEN SC SCH (20:56)
[2017-01-01] VITALS (9 sets, daily range): BP systolic 111–170; BP diastolic 62–84; PULSE 83–103; TEMP 36.4–36.8; O2SAT 92–97
[2017-01-01] MEDS: SODIUM CHLORIDE 0.9% 1000ML 1,000 ML IV SCH ×2 (06:10→17:20)
[2017-01-01 07:22] LABS: HEMATOCRIT 24.8 % (42-52); MEAN CELL VOLUME 90.8 fL (80-100); MEAN CORPUSCULAR HEMOGLOBIN 30.8 pg (25-34); MEAN CORPUSCULAR HGB CONC 33.9 g/dl (32-36); MEAN PLATELET VOLUME 8.8 fL (7.4-10.4); PLATELET COUNT 308 K/uL (130-400); RED BLOOD COUNT 2.73 M/uL (4.7-6.1); WHITE BLOOD COUNT 15.21 K/uL (4.8-10.8)
[2017-01-01] MEDS: OXYMETAZOLINE HCL 0.05% NA SPR 15 ML BTL SCH ×2 (07:24→21:00)
[2017-01-01] MEDS: INSULIN ASPART 100 UNITS/ML 3 ML PEN SC SCH ×4 (07:26→21:18)
[2017-01-01] MEDS: FERROUS SULFATE 325 MG TAB PO SCH ×2 (07:27→21:15)
[2017-01-01 07:28] LABS: INR 1.3 (0.9-1.1); PROTHROMBIN TIME (PATIENT) 14.3 SECONDS (9.0-12.0)
[2017-01-01] MEDS: PAROXETINE 20 MG TAB PO SCH (07:30)
[2017-01-01] MEDS: MIRABEGRON ER 25 MG TAB PO SCH (07:30)
[2017-01-01] MEDS: ALLOPURINOL 100 MG TAB PO SCH (07:30)
[2017-01-01 08:02] LABS: BUN/CREATININE RATIO 10.4 (10-20); CALCIUM 8.3 mg/dl (8.5-10.1); CREATININE 1.3 mg/dl (0.60-1.40); MAGNESIUM 1.5 mg/dl (1.8-2.4); POTASSIUM 3.8 mmol/L (3.5-5.1)
[2017-01-01] MEDS: MAGNESIUM SULFATE 1GM / D5W 1 GM in PREMIXED IN D5W 100 ML IV SCH ×3 (09:49→13:28)
[2017-01-01] MEDS ORDERED: PROPOFOL IV EMULSION 10 MG/ML 20 ML VIAL IV ONE ×2 (10:44→11:09)
[2017-01-01] MEDS ORDERED: LIDOCAINE HCL 2% 2 ML VIAL (20MG/ML) ONE (10:44)
--- NOTE | 2017-01-01 11:05 | GI REPORT ---
Procedure Date: 01/01/2017 10:39 AM Procedure: Upper GI endoscopy Indications: Hematochezia Medicines: Monitored Anesthesia Care Complications: No immediate complications. Estimated blood loss: Minimal. Estimated Blood Loss: Estimated blood loss was minimal. Procedure: Pre-Anesthesia Assessment: - Prior to the procedure, a History and Physical was performed, and patient medications, allergies and sensitivities were reviewed. The patient's tolerance of previous anesthesia was reviewed. - The risks and benefits of the procedure and the sedation options and risks were discussed with the patient. All questions were answered and informed consent was obtained. - Patient identification and proposed procedure were verified prior to the procedure by the physician, the nurse and the assistant guest services manager. The procedure was verified in the procedure room. - Pre-procedure physical examination revealed no contraindications to sedation. - ASA Grade Assessment: III - A patient with severe systemic disease. - After reviewing the risks and benefits, the patient was deemed in satisfactory condition to undergo the procedure. - The anesthesia plan was to use monitored anesthesia care (MAC). - Immediately prior to administration of medications, the patient was re-assessed for adequacy to receive sedatives. - The heart rate, respiratory rate, oxygen saturations, blood pressure, adequacy of pulmonary ventilation, and response to care were monitored throughout the procedure. - The physical status of the patient was re-assessed after the procedure. After obtaining informed consent, the endoscope was passed under direct vision. Throughout the procedure, the patient's blood pressure, pulse, and oxygen saturations were monitored continuously. The Scope was introduced through the mouth, and advanced to the third part of duodenum. The upper GI endoscopy was accomplished without difficulty. The patient tolerated the procedure well. Findings: The upper third of the esophagus and middle third of the esophagus were normal. LA Grade A (one or more mucosal breaks less than 5 mm, not extending between tops of 2 mucosal folds) esophagitis with no bleeding was found at the gastroesophageal junction. The Z-line was regular and was found 38 cm from the incisors. The entire examined stomach was normal. The examined duodenum was normal. Impression: - Z-line regular, 38 cm from the incisors. - Normal stomach. - Normal upper third of esophagus and middle third of esophagus. - LA Grade A reflux esophagitis. - Normal examined duodenum. - No specimens collected. Recommendation: - Perform a colonoscopy today. - Use Prilosec (omeprazole) 20 mg PO daily. Izabella Cotto B. Murillo, 01/01/2017 11:05:56 AM This report has been signed electronically. Note Initiated On: 01/01/2017 10:39 AM I attest to the content of the Intraoperative Record and orders documented therein, exceptions below
--- NOTE | 2017-01-01 11:09 | GI REPORT ---
Procedure Date: 01/01/2017 10:47 AM Procedure: Colonoscopy Indications: Hematochezia Medicines: Monitored Anesthesia Care Complications: No immediate complications. Estimated blood loss: Minimal. Estimated Blood Loss: Estimated blood loss was minimal. Procedure: Pre-Anesthesia Assessment: - Prior to the procedure, a History and Physical was performed, and patient medications, allergies and sensitivities were reviewed. The patient's tolerance of previous anesthesia was reviewed. - The risks and benefits of the procedure and the sedation options and risks were discussed with the patient. All questions were answered and informed consent was obtained. - Patient identification and proposed procedure were verified prior to the procedure by the physician, the nurse and the highway maintenance supervisor. The procedure was verified in the procedure room. - Pre-procedure physical examination revealed no contraindications to sedation. - ASA Grade Assessment: III - A patient with severe systemic disease. - After reviewing the risks and benefits, the patient was deemed in satisfactory condition to undergo the procedure. - The anesthesia plan was to use monitored anesthesia care (MAC). - Immediately prior to administration of medications, the patient was re-assessed for adequacy to receive sedatives. - The heart rate, respiratory rate, oxygen saturations, blood pressure, adequacy of pulmonary ventilation, and response to care were monitored throughout the procedure. - The physical status of the patient was re-assessed after the procedure. After I obtained informed consent, the scope was passed under direct vision. Throughout the procedure, the patient's blood pressure, pulse, and oxygen saturations were monitored continuously. The scope was introduced through the anus and advanced to the terminal ileum. The colonoscopy was performed without difficulty. The patient tolerated the procedure well. The quality of the bowel preparation was good. Findings: The digital rectal exam findings include large non-thrombosed external hemorrhoids. Pertinent negatives include normal prostate (size, shape, and consistency). The terminal ileum appeared normal. A 5 mm polyp was found in the transverse colon. The polyp was sessile. The polyp was removed with a cold snare. Resection and retrieval were complete. Estimated blood loss was minimal. A 5 mm polyp was found in the sigmoid colon. The polyp was sessile. The polyp was removed with a cold snare. Resection and retrieval were complete. Estimated blood loss was minimal. A few small-mouthed diverticula were found in the sigmoid colon. Internal hemorrhoids were found during retroflexion. The hemorrhoids were moderate. The exam was otherwise without abnormality. Impression: - Large internal and external hemorrhoids (likely source of hematochezia). - The examined portion of the ileum was normal. - One 5 mm polyp in the transverse colon, removed with a cold snare. Resected and retrieved. - One 5 mm polyp in the sigmoid colon, removed with a cold snare. Resected and retrieved. - Mild diverticulosis in the sigmoid colon. - The examination was otherwise normal. Recommendation: - Return patient to [facility] for ongoing care. - Await pathology results. - Repeat colonoscopy in 3 - 5 years for surveillance based on pathology results. - If significant hematochezia persists could consider a surgical referral. Law Murillo D.O. Law Murillo, 01/01/2017 11:09:48 AM This report has been signed electronically. Note Initiated On: 01/01/2017 10:47 AM I attest to the content of the Intraoperative Record and orders documented therein, exceptions below
--- NOTE | 2017-01-01 11:17 | Anesthesiology Progress Note ---
Anesthesia Post Op Note Date & Time Jan 01, 2017 at 11:16 Vital Signs Pain Intensity: 0 Vital Signs Past 12 Hours Date Time Temp Pulse Resp B/P Pulse Ox O2 Delivery O2 Flow Rate FiO2 01/01/17 11:05 101 14 141/83 96 Room Air 01/01/17 10:14 36.7 78 20 176/82 96 Room Air 01/01/17 08:00 Room Air 01/01/17 07:59 36.7 90 19 111/80 92 Room Air 01/01/17 05:25 36.8 91 20 132/62 93 Room Air 01/01/17 04:22 36.8 91 20 132/62 93 Room Air 01/01/17 04:00 95 Room Air 01/01/17 00:01 95 Room Air Notes Mental Status: alert / awake / arousable, participated in evaluation Pt Amnestic to Procedure: Yes Nausea / Vomiting: adequately controlled Pain: adequately controlled Airway Patency, RR, SpO2: stable & adequate BP & HR: stable & adequate Hydration State: stable & adequate Anesthetic Complications: no major complications apparent Pt doing well.
--- NOTE | 2017-01-01 13:13 | Progress Note ---
Medicine Progress Note Date & Time of Visit: Jan 01, 2017 at 12:38. Subjective Pt was seen and examined Lying in bed with no distress Pt said that he feels fine he said that he continue to have dark and red bright stool He denies any abdominal pain, palpitation, dizziness and sob. Objective Last 8 Hrs Date Time Temp Pulse Resp B/P Pulse Ox O2 Delivery O2 Flow Rate FiO2 01/01/17 12:09 36.6 96 18 157/73 96 Room Air 01/01/17 12:00 Room Air 01/01/17 11:35 93 16 150/85 96 Room Air 01/01/17 11:20 97 16 139/87 96 Room Air 01/01/17 11:05 101 14 141/83 96 Room Air 01/01/17 10:14 36.7 78 20 176/82 96 Room Air 01/01/17 08:00 Room Air 01/01/17 07:59 36.7 90 19 111/80 92 Room Air 01/01/17 05:25 36.8 91 20 132/62 93 Room Air Physical Exam: General- No distress Head- atraumatic Eyes- PERRL, EOMI ENT- oropharynx clear, dry mucosa Neck- supple, no JVD Lungs- clear to auscultation, no wheezing Heart- regular rhythm Abdomen- normal bowel sounds, soft, nontender Extremities- no calf tenderness Neuro- alert, oriented x 3; PERRL, EOMI; Skin- warm & dry Laboratory Results: Last 24 Hours Test 12/31/16 16:21 12/31/16 19:54 12/31/16 20:29 01/01/17 06:59 Bedside Glucose 161 mg/dl 166 mg/dl 174 mg/dl Hemoglobin 9.2 g/dL Hematocrit 27.5 % Magnesium Level 1.7 mg/dl Test 01/01/17 07:02 01/01/17 12:07 White Blood Count 15.21 K/uL Red Blood Count 2.73 M/uL Hemoglobin 8.4 g/dL Hematocrit 24.8 % Mean Corpuscular Volume 90.8 fL Mean Corpuscular Hemoglobin 30.8 pg Mean Corpuscular Hemoglobin Concent 33.9 g/dl RDW Standard Deviation 54.5 fL RDW Coefficient of Variation 16.7 % Platelet Count 308 K/uL Mean Platelet Volume 8.8 fL Prothrombin Time 14.3 SECONDS Prothromb Time International Ratio 1.3 Sodium Level 146 mmol/L Potassium Level 3.8 mmol/L Chloride Level 116 mmol/L Carbon Dioxide Level 21 mmol/L Anion Gap 9.0 mmol/L Blood Urea Nitrogen 13 mg/dl Creatinine 1.30 mg/dl Est Creatinine Clear Calc Drug Dose 60.8 ml/min Estimated GFR () 61.9 Estimated GFR (Non- 53.4 BUN/Creatinine Ratio 10.4 Random Glucose 176 mg/dl Calcium Level 8.3 mg/dl Magnesium Level 1.5 mg/dl Bedside Glucose 229 mg/dl Assessment & Plan ACUTE RENAL FAILURE LIKELY PRE RENAL FROM DIARRHEAL ILLNESS CONCOMITANT USE OF NSAIDS Creatine on admission 5.2 that improved to 4 today baseline creatine 0.8 creatine trending down today to 1.3 Renal US showed trace left perinephric fluid. No hydronephrosis Decrease IVF Continue monitor I/O Nephrology on board- appreciate input No need for emergent HD Resolved GI bleed Due to Coumadin and NSAID Mostly due to INR supra therapeutic (INR >8) continue to have bloody diarrhea received Vit K during this admission Hgb this morning 8.4 transfused 2 unit prbc 12/30/16 GI consulted- appreciated input if h/h stable, will consider scope as an outpatient continue PPI negative stool for cdiff d/c flagyl since stool negative for cdiff monitor h/h and transfused if hgb less than 8 Bowel prep with Golytely today to prep for colonoscopy tomorrow Continue clear liquid diet NPO after midnight 4/3 S/P colonoscopy and EGD this morning Colonoscopy: - Large internal and external hemorrhoids (likely source of hematochezia).. - One 5 mm polyp in the transverse colon, removed with a cold snare. Resected and retrieved. - One 5 mm polyp in the sigmoid colon, removed with a cold snare. Resected and retrieved. Repeat colonoscopy in 3 - 5 years for surveillance based on pathology results. EGD showed reflux esophagitis GI recommended omeprazole 20mg daily Resume diet Acute Blood Loss anemia Due to GI bleed Hbg 8.4 today Transfused 3 unit PRBC so far during the admission course GI on board continue monitor h/h colonoscopy and EGD done today- see report If continue to have bloody BM and h/h continue to drop, will consult surgery for the hemorrhoid RECURRENT EPISTAXIS due to elevated INR s/p cauterization at the ER Vit k given INR dropped to 1.3 ENT consulted discussed case with Dr. Graham that recommended afrin spray BID and nasal pray q1h no episode of nose bleeding continue monitor Resolved LEUKOCYTOSIS R/O Sepsis WBC o 35K and hypotension on Admission WBC 16K today Procalcitonin elevated urine cx positive for E.Coli Continue empiric Ceftriaxone IV for UTI Flagyl D/C UTI Urine cx growth E-coli present with WBC 35K afebrile, WBC trending down Change rocephin IV to cipro BID Monitor cbc MECHANICAL AORTIC VALVE INR > 8 on admission received Vit K INR today 1.3 Coumadin continue to hold due to GI bleed monitor INR DM 2 hold Insulin and oral meds ISS for now Pharmacy consulted HYPERTENSION blood pressure on the lower side hold Lisinopril, Diltiazem, bb continue Atenolol JAMES CPAP ordered RESTLESS LEGS Pramipexole trial started monitor DVT prophylaxis INR 1.3 SCDs due to GI bleed Full code per patient Consultants: Gastro Nephro Current Inpatient Medications: Current Inpatient Medications Medications (Trade) Dose Ordered Sig/Vipul Route Start Time Stop Time Status Last Admin Dose Admin Sodium Chloride 1,000 ml @ 80 mls/hr [id number] IV 12/26/16 20:30 01/25/17 20:29 01/01/17 06:10 80 MLS/HR Ceftriaxone Sodium/Dextrose (Rocephin Inj/ Dextrose Add-[place] 50ML) 50 ml @ 100 mls/hr DAILY@1000 IV 12/27/16 10:00 01/06/17 09:59 12/31/16 11:18 100 MLS/HR Insulin Aspart (novoLOG ASPART) SLIDING SCALE If C... ACHS SC 12/26/16 21:00 01/25/17 20:59 01/01/17 07:26 2 UNITS Glucose (Glucose 40% Gel) 15-30 GRAMS 15 GRAMS... UD PRN PO 12/26/16 20:30 01/25/17 20:29 Glucose (Glucose Chew Tab) 4-8 Tablets 4 Tabl... UD PRN PO 12/26/16 20:30 01/25/17 20:29 12/29/16 07:50 4 TABS Dextrose (Dextrose 50% 50ML Syringe) 25-50ML OF 50% DW IV FOR... UD PRN IV 12/26/16 20:30 01/25/17 20:29 Glucagon (Glucagon Inj) 1 mg UD PRN SQ 12/26/16 20:30 01/25/17 20:29 Miscellaneous Information (Consult Glycemic Management Pharmacy) 1 ea UD PRN N/A 12/26/16 20:38 01/25/17 20:37 Allopurinol (Zyloprim Tab) 200 mg Q2D@0900 PO 12/28/16 09:00 01/27/17 08:59 12/30/16 09:02 200 MG Atenolol (Tenormin Tab) 25 mg QAM PO 12/27/16 09:00 01/26/17 08:59 Future Hold Cyanocobalamin (Vitamin B-12 Tab) 500 mcg QPM PO 12/26/16 21:00 01/25/17 20:59 12/31/16 20:52 500 MCG Folic Acid (Folvite Tab) 1 mg QPM PO 12/26/16 21:00 01/25/17 20:59 12/31/16 20:52 1 MG Mirabegron (Myrbetriq Er) 25 mg QAM PO 12/27/16 09:00 01/26/17 08:59 12/31/16 07:50 25 MG Paroxetine HCl (pAXil TAB) 20 mg QAM PO 12/27/16 09:00 01/26/17 08:59 12/31/16 07:50 20 MG Simvastatin (Zocor Tab) 20 mg HS PO 12/26/16 21:00 01/25/17 20:59 12/31/16 20:52 20 MG Ferrous Sulfate (Feosol Tab) 325 mg BID PO 12/26/16 21:00 01/25/17 20:59 12/31/16 20:52 325 MG Acetaminophen (Tylenol Tab) 650 mg Q4H PRN PO 12/26/16 20:45 01/25/17 20:44 12/28/16 04:51 650 MG Pramipexole Dihydrochloride (miraPEX TAB) 0.125 mg DAILY PRN PO 12/26/16 21:45 01/25/17 21:44 12/27/16 23:59 0.125 MG Calcium Carbonate (Tums Chew Tab) 500 mg Q6H PRN PO 12/27/16 04:45 01/26/17 04:44 12/28/16 19:42 500 MG Lorazepam (Ativan Inj) 0.5 mg Q4H PRN IV 12/27/16 05:00 01/26/17 04:59 12/28/16 22:34 0.5 MG Ondansetron HCl 4 mg 4 mg Q6H PRN IV 12/27/16 05:15 01/26/17 05:14 Promethazine HCl/ Sodium Chloride (Phenergan Inj/ Nss 50ml) 50.5 ml @ 204 mls/hr Q6H PRN IV 12/27/16 05:15 01/26/17 05:14 Oxymetazoline HCl (Afrin 0.05% Nasal [place]) 1 sprays Q12 NA 12/28/16 21:00 01/27/17 20:59 01/01/17 07:24 1 SPRAYS Tramadol HCl (Ultram Tab) 25 mg Q6H PRN PO 12/28/16 21:00 01/27/17 20:59 12/30/16 00:46 25 MG Hydromorphone HCl (Dilaudid Inj) 0.5 mg Q3H PRN IV 12/28/16 21:00 01/11/17 20:59 Menthol (Nice Adriel) 1 adriel PRN PRN PO 12/29/16 12:15 01/28/17 12:14 Sodium Chloride ([place] Nasal [place]) 1 sprays Q1HWA PRN NA 12/30/16 10:00 01/29/17 15:59 Insulin Glargine HS SC 01/01/17 21:00 01/31/17 20:59 Magnesium Sulfate/ Prmx (Magnesium Sulfate/Premixed D5W) 100 ml @ 100 mls/hr Q1H IV 01/01/17 09:45 01/01/17 12:44 01/01/17 12:28 100 MLS/HR
[2017-01-01 20:07] LABS: HEMATOCRIT 25.9 % (42-52)
[2017-01-01] MEDS: SIMVASTATIN 20 MG TAB PO SCH (21:15)
[2017-01-01] MEDS: CYANOCOBALAMIN 500 MCG TAB (VIT B-12) PO SCH (21:15)
[2017-01-01] MEDS: INSULIN GLARGINE SOLOSTAR 100 UNITS/ML 3 ML PEN SC SCH (21:19)
[2017-01-02] VITALS (8 sets, daily range): BP systolic 136–154; BP diastolic 68–91; PULSE 75–90; TEMP 36.4–37; O2SAT 93–98
[2017-01-02 06:27] LABS: HEMATOCRIT 24.4 % (42-52); MEAN CELL VOLUME 92.4 fL (80-100); MEAN CORPUSCULAR HEMOGLOBIN 30.3 pg (25-34); MEAN CORPUSCULAR HGB CONC 32.8 g/dl (32-36); PLATELET COUNT 314 K/uL (130-400); RED BLOOD COUNT 2.64 M/uL (4.7-6.1); WHITE BLOOD COUNT 12.95 K/uL (4.8-10.8)
[2017-01-02] MEDS: SODIUM CHLORIDE 0.9% 1000ML 1,000 ML IV SCH ×2 (06:36→18:12)
[2017-01-02 07:02] LABS: BUN/CREATININE RATIO 10.8 (10-20); CALCIUM 8.2 mg/dl (8.5-10.1); CREATININE 1.1 mg/dl (0.60-1.40); MAGNESIUM 1.5 mg/dl (1.8-2.4); POTASSIUM 3.7 mmol/L (3.5-5.1)
[2017-01-02 07:07] LABS: ALB/GLOB RATIO 0.4 (0.9-2)
[2017-01-02] MEDS: OXYMETAZOLINE HCL 0.05% NA SPR 15 ML BTL SCH ×2 (08:19→21:00)
[2017-01-02] MEDS: INSULIN ASPART 100 UNITS/ML 3 ML PEN SC SCH ×4 (08:21→21:11)
[2017-01-02] MEDS: CIPROFLOXACIN 500 MG TAB PO SCH ×2 (08:22→21:12)
[2017-01-02] MEDS: MIRABEGRON ER 25 MG TAB PO SCH (08:22)
[2017-01-02] MEDS: PAROXETINE 20 MG TAB PO SCH (08:23)
[2017-01-02] MEDS: FERROUS SULFATE 325 MG TAB PO SCH ×2 (08:23→21:13)
[2017-01-02] MEDS: PRAMIPEXOLE DIHYDROCHLORIDE 0.25MG TAB PO PRN (08:23)
[2017-01-02] MEDS: MAGNESIUM SULFATE 1GM / D5W 1 GM in PREMIXED IN D5W 100 ML IV SCH ×2 (09:36→10:16)
[2017-01-02] MEDS ORDERED: HYDROCORTISONE 1% CR 30 GM TUBE EXT PRN (10:15)
--- NOTE | 2017-01-02 10:17 | Progress Note ---
Internal Med Progress Note Date of Service: Jan 02, 2017. Provider Documentation: SUBJECTIVE: Patient is doing better today. Had one Bloody BM yesterday night but none since than. No diarrhea, abdominal pain, fever, chills, SOB, chest pain, cough. Tele- no events OBJECTIVE: Vital Signs-as noted below Exam: General- No distress Neck- supple, no JVD Lungs- clear to auscultation, no wheezing Heart- regular rhythm Abdomen- normal bowel sounds, soft, nontender Extremities- no edema Neuro- alert, oriented x 3; Grossly no focal deficits Lab data as noted below. ASSESSMENT & PLAN: ACUTE RENAL FAILURE : Resolving LIKELY PRE RENAL FROM DIARRHEAL ILLNESS CONCOMITANT USE OF NSAIDS Creatine on admission 5.2 that improved to 1.10 today (Baseline creatine 0.8) -IV fluids at 80 cc/hour -Work up- Renal US showed trace left perinephric fluid. No hydronephrosis -Nephrology on board- appreciate input GI BLEEDING, LIKELY SECONDARY TO HEMORRHOIDS, SUPRA THERAPEUTIC INR in setting of using NSAIDS Mostly due to INR supra therapeutic (INR >8) and was taking Motrin S/P EGD on 01/01/17- Reflux esophagitis S/P Colonoscopy on 01/01/17- Large internal/External hemorrhoids (likely source of hematochezia), one 5 mm polyp in transverse colon, removed with a cold snare. Resected and retrieved, one 5 mm polyp in sigmoid colon, removed with a cold snare, resected and retrieved. Repeat colonoscopy in 5 years based on pathology results -Continues to have bloody BM (last one yesterday) -Received Vit K during this admission, Coumadin on hold -Hgb this morning 8.0 -S/P 3 unit PRBC since admission -Continue with Omeprazole 20 mg daily -Work up- C diff- negative -GI consulted- appreciated input ACUTE BLOOD LOSS ANEMIA: Due to GI bleed Hbg 8.0 today -Transfused 3 unit PRBC so far during the admission course -GI on board -Continue monitor H & H RECURRENT EPISTAXIS- Resolved Due to elevated INR S/P cauterization at the ER; S/P Vitamin K in ER; Coumadin on hold -S/P ENT consultation: Was discussed with Dr. Graham by Dr Moya that recommended afrin spray BID and nasal pray q1h LEUKOCYTOSIS Ruled out Sepsis. WBC 35K and hypotension on Admission--> WBC 12k now -Procalcitonin elevated -Urine cx positive for E.Coli -S/P IV Ceftriaxone --> changed to Ciprofloxacin BID UTI (E coli) Presented with WBC 35K -Afebrile, WBC trending down -Changed rocephin IV to cipro BID MECHANICAL AORTIC VALVE INR > 8 on admission; received Vit K -INR today 1.3 -Coumadin continue to hold due to GI bleed -Challenging as has a mechanical aortic valve, but unfortunately due to active bleeding, will have to continue to hold coumadin. Understands the risks while holding coumadin, including stroke. DM 2 hold Insulin and oral meds ISS -Pharmacy consulted HYPERTENSION Blood pressure on the lower side on presentation -Held Lisinopril, Diltiazem, bb--> Okay to restart BB, Diltiazem as at home -Continue Atenolol JAMES -CPAP RESTLESS LEGS -Pramipexole trial started -Monitor DVT prophylaxis INR 1.3 SCDs due to GI bleed Full code per patient Consultants: Gastro Nephro DISPOSITION Continue with tele monitoring Vital Signs: Date Time Temp Pulse Resp B/P Pulse Ox O2 Delivery O2 Flow Rate FiO2 01/02/17 08:00 Room Air 01/02/17 07:45 36.4 90 18 149/77 96 Room Air 01/02/17 04:00 97 Room Air 01/02/17 04:00 36.5 82 20 152/77 96 Room Air 01/02/17 00:52 142/91 01/02/17 00:01 97 Room Air 01/01/17 23:00 36.4 83 21 170/84 96 Room Air 01/01/17 20:00 Room Air 01/01/17 16:00 97 Room Air 01/01/17 15:22 36.6 103 18 141/80 97 Room Air 01/01/17 12:09 36.6 96 18 157/73 96 Room Air 01/01/17 12:00 Room Air 01/01/17 11:35 93 16 150/85 96 Room Air 01/01/17 11:20 97 16 139/87 96 Room Air 01/01/17 11:05 101 14 141/83 96 Room Air Lab Results: Results Past 24 Hours Test 01/01/17 12:07 01/01/17 13:46 01/01/17 16:48 01/01/17 19:45 Range/Units Bedside Glucose 229 247 270 70-99 mg/dl Hemoglobin 8.6 14.0-18.0 g/dL Hematocrit 25.9 42-52 % Test 01/01/17 20:18 01/02/17 06:05 01/02/17 06:51 Range/Units Bedside Glucose 165 179 70-99 mg/dl White Blood Count 12.95 4.8-10.8 K/uL Red Blood Count 2.64 4.7-6.1 M/uL Hemoglobin 8.0 14.0-18.0 g/dL Hematocrit 24.4 42-52 % Mean Corpuscular Volume 92.4 80-100 fL Mean Corpuscular Hemoglobin 30.3 25-34 pg Mean Corpuscular Hemoglobin Concent 32.8 32-36 g/dl RDW Standard Deviation 55.1 36.4-46.3 fL RDW Coefficient of Variation 16.8 11.5-14.5 % Platelet Count 314 130-400 K/uL Mean Platelet Volume 9.0 7.4-10.4 fL Nucleated RBC Absolute Count (auto) 0.02 0-0 K/uL Nucleated Red Blood Cells % 0.1 % Sodium Level 145 136-145 mmol/L Potassium Level 3.7 3.5-5.1 mmol/L Chloride Level 115 98-107 mmol/L Carbon Dioxide Level 21 21-32 mmol/L Anion Gap 9.0 3-11 mmol/L Blood Urea Nitrogen 12 7-18 mg/dl Creatinine 1.10 0.60-1.40 mg/dl Est Creatinine Clear Calc Drug Dose 70.8 ml/min Estimated GFR () 75.7 Estimated GFR (Non- 65.3 BUN/Creatinine Ratio 10.8 10-20 Random Glucose 178 70-99 mg/dl Calcium Level 8.2 8.5-10.1 mg/dl Magnesium Level 1.5 1.8-2.4 mg/dl Total Bilirubin 0.4 0.2-1 mg/dl Aspartate Amino Transf (AST/SGOT) 175 15-37 U/L Alanine Aminotransferase (ALT/SGPT) 104 12-78 U/L Alkaline Phosphatase 186 45-117 U/L Total Protein 6.7 6.4-8.2 gm/dl Albumin 2.0 3.4-5.0 gm/dl Globulin 4.7 2.5-4.0 gm/dl Albumin/Globulin Ratio 0.4 0.9-2
--- NOTE | 2017-01-02 10:32 | Gastroenterology Progress Note ---
Progress Note Date of Service: Jan 02, 2017 Subjective Pt evaluation today including: conversation w/ patient, physical exam, chart review, lab review Pt was seen and evaluated this morning. He reports he is doing overall well. Last BM was this morning, still with a lot of BRB. No rectal pain, stinging or burning. No abdominal pain. No fever, chills, chest pain, SOB, black stools. Uses OTC steroid cream for his external hemorrhoids at home - has never had any severe rectal bleeding before. EGD 01/01/17: Z-line regular, 38 cm from the incisors. Normal stomach. Normal upper third of esophagus and middle third of esophagus.LA Grade A reflux esophagitis. Normal examined duodenum. No specimens collected. Colonoscopy 01/01/17: Large internal and external hemorrhoids (likely source of hematochezia). The examined portion of the ileum was normal.One 5 mm polyp in the transverse colon, removed with a cold snare. Resected and retrieved. One 5 mm polyp in the sigmoid colon, removed with a cold snare. Resected and retrieved.Mild diverticulosis in the sigmoid colon. The examination was otherwise normal. Review of Systems Constitutional: No chills, No fever Respiratory: No cough, No shortness of breath Cardiac: No chest pain, No edema Abdomen: + GI bleeding, No constipation, No diarrhea, No dysphagia, No nausea, No pain, No vomiting Medications Current Inpatient Medications Medications (Trade) Dose Ordered Sig/Vipul Route Start Time Stop Time Status Last Admin Dose Admin Sodium Chloride (Nss 1000ml) 1,000 ml @ 80 mls/hr [id number] IV 12/26/16 20:30 01/25/17 20:29 01/02/17 06:36 80 MLS/HR Insulin Aspart (novoLOG ASPART) SLIDING SCALE If C... ACHS SC 12/26/16 21:00 01/25/17 20:59 01/02/17 08:21 6 UNITS Glucose (Glucose 40% Gel) 15-30 GRAMS 15 GRAMS... UD PRN PO 12/26/16 20:30 01/25/17 20:29 Glucose (Glucose Chew Tab) 4-8 Tablets 4 Tabl... UD PRN PO 12/26/16 20:30 01/25/17 20:29 12/29/16 07:50 4 TABS Dextrose (Dextrose 50% 50ML Syringe) 25-50ML OF 50% DW IV FOR... UD PRN IV 12/26/16 20:30 01/25/17 20:29 Glucagon (Glucagon Inj) 1 mg UD PRN SQ 12/26/16 20:30 01/25/17 20:29 Miscellaneous Information (Consult Glycemic Management Pharmacy) 1 ea UD PRN N/A 12/26/16 20:38 01/25/17 20:37 Allopurinol (Zyloprim Tab) 200 mg Q2D@0900 PO 12/28/16 09:00 01/27/17 08:59 12/30/16 09:02 200 MG Atenolol (Tenormin Tab) 25 mg QAM PO 12/27/16 09:00 01/26/17 08:59 Future Hold Cyanocobalamin (Vitamin B-12 Tab) 500 mcg QPM PO 12/26/16 21:00 01/25/17 20:59 01/01/17 21:15 500 MCG Folic Acid (Folvite Tab) 1 mg QPM PO 12/26/16 21:00 01/25/17 20:59 01/01/17 21:16 1 MG Mirabegron (Myrbetriq Er) 25 mg QAM PO 12/27/16 09:00 01/26/17 08:59 01/02/17 08:22 25 MG Paroxetine HCl (pAXil TAB) 20 mg QAM PO 12/27/16 09:00 01/26/17 08:59 01/02/17 08:23 20 MG Simvastatin (Zocor Tab) 20 mg HS PO 12/26/16 21:00 01/25/17 20:59 01/01/17 21:15 20 MG Ferrous Sulfate (Feosol Tab) 325 mg BID PO 12/26/16 21:00 01/25/17 20:59 01/02/17 08:23 325 MG Acetaminophen (Tylenol Tab) 650 mg Q4H PRN PO 12/26/16 20:45 01/25/17 20:44 12/28/16 04:51 650 MG Pramipexole Dihydrochloride (miraPEX TAB) 0.125 mg DAILY PRN PO 12/26/16 21:45 01/25/17 21:44 01/02/17 08:23 0.125 MG Calcium Carbonate (Tums Chew Tab) 500 mg Q6H PRN PO 12/27/16 04:45 01/26/17 04:44 12/28/16 19:42 500 MG Lorazepam (Ativan Inj) 0.5 mg Q4H PRN IV 12/27/16 05:00 01/26/17 04:59 12/28/16 22:34 0.5 MG Ondansetron HCl 4 mg 4 mg Q6H PRN IV 12/27/16 05:15 01/26/17 05:14 Promethazine HCl/ Sodium Chloride (Phenergan Inj/ Nss 50ml) 50.5 ml @ 204 mls/hr Q6H PRN IV 12/27/16 05:15 01/26/17 05:14 Oxymetazoline HCl (Afrin 0.05% Nasal [place]) 1 sprays Q12 NA 12/28/16 21:00 01/27/17 20:59 01/02/17 08:19 1 SPRAYS Tramadol HCl (Ultram Tab) 25 mg Q6H PRN PO 12/28/16 21:00 01/27/17 20:59 12/30/16 00:46 25 MG Hydromorphone HCl (Dilaudid Inj) 0.5 mg Q3H PRN IV 12/28/16 21:00 01/11/17 20:59 Menthol (Nice Adriel) 1 adriel PRN PRN PO 12/29/16 12:15 01/28/17 12:14 Sodium Chloride ([place] Nasal [place]) 1 sprays Q1HWA PRN NA 12/30/16 10:00 01/29/17 15:59 Insulin Glargine (Lantus Solostar Pen) HS SC 01/01/17 21:00 01/31/17 20:59 01/01/17 21:19 14 UNIT Ciprofloxacin 500 mg 500 mg BID PO 01/02/17 09:00 01/03/17 08:59 01/02/17 08:22 500 MG Magnesium Sulfate/ Prmx (Magnesium Sulfate/Premixed D5W) 100 ml @ 100 mls/hr Q1H IV 01/02/17 09:15 01/02/17 11:14 01/02/17 10:16 100 MLS/HR Hydrocortisone (Hydrocortisone 1% Crm) 1 appln BID PRN EXT 01/02/17 10:15 02/01/17 10:14 UNV Objective Vital Signs Date Time Temp Pulse Resp B/P Pulse Ox O2 Delivery O2 Flow Rate FiO2 01/02/17 08:00 Room Air 01/02/17 07:45 36.4 90 18 149/77 96 Room Air 01/02/17 04:00 97 Room Air 01/02/17 04:00 36.5 82 20 152/77 96 Room Air 01/02/17 00:52 142/91 01/02/17 00:01 97 Room Air 01/01/17 23:00 36.4 83 21 170/84 96 Room Air 01/01/17 20:00 Room Air 01/01/17 16:00 97 Room Air 01/01/17 15:22 36.6 103 18 141/80 97 Room Air 01/01/17 12:09 36.6 96 18 157/73 96 Room Air 01/01/17 12:00 Room Air 01/01/17 11:35 93 16 150/85 96 Room Air 01/01/17 11:20 97 16 139/87 96 Room Air 01/01/17 11:05 101 14 141/83 96 Room Air Physical Exam General Appearance: no apparent distress Eyes: PERRL ENT: hearing grossly normal Neck: supple, trachea midline Respiratory/Chest: lungs clear, normal breath sounds Cardiovascular: regular rate, rhythm, no edema Abdomen: normal bowel sounds, non tender, soft, no organomegaly, no pulsatile mass Neurologic/Psych: alert, normal mood/affect, oriented x 3 Skin: normal color Laboratory Results Last 24 Hours Test 01/01/17 12:07 01/01/17 13:46 01/01/17 16:48 01/01/17 19:45 Bedside Glucose 229 mg/dl 247 mg/dl 270 mg/dl Hemoglobin 8.6 g/dL Hematocrit 25.9 % Test 01/01/17 20:18 01/02/17 06:05 01/02/17 06:51 Bedside Glucose 165 mg/dl 179 mg/dl White Blood Count 12.95 K/uL Red Blood Count 2.64 M/uL Hemoglobin 8.0 g/dL Hematocrit 24.4 % Mean Corpuscular Volume 92.4 fL Mean Corpuscular Hemoglobin 30.3 pg Mean Corpuscular Hemoglobin Concent 32.8 g/dl RDW Standard Deviation 55.1 fL RDW Coefficient of Variation 16.8 % Platelet Count 314 K/uL Mean Platelet Volume 9.0 fL Nucleated RBC Absolute Count (auto) 0.02 K/uL Nucleated Red Blood Cells % 0.1 % Sodium Level 145 mmol/L Potassium Level 3.7 mmol/L Chloride Level 115 mmol/L Carbon Dioxide Level 21 mmol/L Anion Gap 9.0 mmol/L Blood Urea Nitrogen 12 mg/dl Creatinine 1.10 mg/dl Est Creatinine Clear Calc Drug Dose 70.8 ml/min Estimated GFR () 75.7 Estimated GFR (Non- 65.3 BUN/Creatinine Ratio 10.8 Random Glucose 178 mg/dl Calcium Level 8.2 mg/dl Magnesium Level 1.5 mg/dl Total Bilirubin 0.4 mg/dl Aspartate Amino Transf (AST/SGOT) 175 U/L Alanine Aminotransferase (ALT/SGPT) 104 U/L Alkaline Phosphatase 186 U/L Total Protein 6.7 gm/dl Albumin 2.0 gm/dl Globulin 4.7 gm/dl Albumin/Globulin Ratio 0.4 Assessment and Plan Mr. Chau is a 76 year old male with bloody diarrhea x 10 days in the setting of Coumadin toxicity with an INR>8, WBC 35 and acute renal failure. INR was reversed and BRBPR continued. EGD and Colonoscopy yesterday with large internal and external hemorrhoids. Continues to have significant BRBPR with BM. Plan Anusol BID INR normalized IVF for hydration Trend H&H Monitor stools Transfuse as needed continue PPI BID as preventative GI ok for diet as tolerated Surgery referral for persistent BRBPR and large internal/external hemorrhoids GI to sign off. Please call with any additional questions. I saw and evaluated the patient -- would agree with a trial for topical steroids for the hemorrhoidal bleeding. please call with any questions.
[2017-01-02] MEDS ORDERED: HYDROCORTISONE HC 2.5% CRM 30GM TUBE EXT PRN (10:45)
--- NOTE | 2017-01-02 11:47 | Pharmacy Progress Note ---
Glycemic Control: Progress Nt Date of Service Jan 02, 2017. Scope Glycemic Pharmacist consulted by Dr Lynn on 12/26/16 for glycemic control and to write orders per [facility] inpatient glycemic control protocol. Objective Accuchecks BSG (last 24hrs): Test 01/01/17 12:07 01/01/17 13:46 01/01/17 16:48 01/01/17 20:18 Bedside Glucose 229 mg/dl (70-99) 247 mg/dl (70-99) 270 mg/dl (70-99) 165 mg/dl (70-99) Test 01/02/17 06:05 01/02/17 06:51 01/02/17 11:27 Random Glucose 178 mg/dl (70-99) Bedside Glucose 179 mg/dl (70-99) 231 mg/dl (70-99) HbA1c: Test 12/27/16 01:50 Hemoglobin A1c 6.6 % (4.5-5.6) H Recent Pertinent Medications Outpatient Anti-diabetic Regimen: * Amaryl 4mg PO Daily * Metformin 1,000mg PO BIDM * Lantus 40 units SQ HS * NovoLog SSI as directed The patient is currently receiving: * Basal insulin: Lantus 14 units every 24 hours given at bedtime * Correctional Insulin: Novolog Correction per scale ACHS Goal Range: Low 110 mg/dL - High 140 mg/dL Correction Factor: 25 mg/dL/unit * Prandial insulin: Per carb ratio of 1 unit per 9 grams CHO consumed * Oral Agents: on hold for admission Risk Factors for Insulin Resistance: * Infection * Recent Procedure * Diet Assessment & Plan ASSESSMENT: * 76yo T2DM male with adequate degree of outpatient control with current outpatient antidiabetic regimen * Pt is maintained on multiple oral agents + SQ basal bolus insulin regimen * Current inpatient regimen is just SQ basal bolus insulin regimen (oral agents on hold) --> pt is requiring significantly less insulin as compared to outpatient insulin doses d/t reduced diet * Pt has been requiring ~ 40 units of insulin per day with sub-adequate control * AM fasting BSG elevated at 179mg/dl --> increase in basal insulin needed * Post-prandial BSGs elevated/rise throughout the day --> CF/CR need tightened * Have been dosing conservatively d/t NPO/clear liquid diet. However, diet advanced to full liquids therefore increase in insulin regimen warranted. * ADA & AACE recommend a goal blood sugar range 140-180 mg/dl for the majority of critically ill & non-critically ill patients. However, more stringent targets may be selected in individual cases. Will utilize more stringent goal of 110-140mg/dl based on patient age, comorbidities, and tight glycemic control at baseline. PLAN FOR INPATIENT GLYCEMIC CONTROL: * Continue to hold outpatient oral diabetes medications- may resume at discharge * Increase Basal insulin with Lantus to 20 units SQ HS * Administer 1/2 dose (10 units) if BSG < 110mg/dl * Tighten NOVOLOG per scale ACHS or Q6hrs while NPO * Goal Range: Low 110 mg/dL - High 140 mg/dL * Correction Factor: 20 mg/dL/unit * Nutritional / Prandial insulin per carb ratio of 1 unit per 6 grams CHO consumed * Please note that the plan above was derived based on current level of insulin resistance and hospital stress. These recommendations are appropriate for inpatient admission only. Plan of care upon discharge will need to be reassessed to avoid potential outpatient hypo/hyperglycemia. Thank you.
[2017-01-02] MEDS: DILTIAZEM HCL 120 MG ER CAP PO SCH (12:18)
--- NOTE | 2017-01-02 13:45 | Medical Consult ---
Consultation Date of Consultation: Jan 02, 2017. Attending Physician: Kandace Hercules., S History of Present Illness 76 y/o male with mechanical valve presented to ED 1 week ago for epistaxis. This was controlled in the ER, INR was >8 and he was admitted. Then developed bright red rectal bleeding, continues now with BMs. Had EGD and colonoscopy yesterday, large internal/external hemorrhoids suspected source of bleeding. Occasionally has some blood with BMs at home but but no other symptoms. Has had 3 units PRBCs. Hgb this AM is 8. Most recent surgery was TKA last fall. Has been seen by nephrology for CLIFFORD, which is improving. Has not been seen by cardiology. Past Medical/Surgical History Medical Problems: (1) BPH (benign prostatic hyperplasia) (2) Diabetes type 2, controlled (3) Dyslipidemia (4) Fall (5) NEMESIO (iron deficiency anemia) (6) Iliac artery aneurysm (7) JAMES on CPAP (8) Paroxysmal atrial fibrillation Surgical Problems: (1) History of appendectomy (2) History of arthroscopy of both knees (3) History of spinal surgery (4) History of total left knee replacement (5) S/P AVR (aortic valve replacement) Family History Diabetes mellitus FH: cancer Heart disease Hypertension Social History Smoking Status: Never Smoker Marital Status: Allergies Coded Allergies: No Known Allergies (Verified , 12/26/16) Current Inpatient Medications Current Inpatient Medications Medications (Trade) Dose Ordered Sig/Vipul Route Start Time Stop Time Status Last Admin Dose Admin Sodium Chloride (Nss 1000ml) 1,000 ml @ 80 mls/hr [id number] IV 12/26/16 20:30 01/25/17 20:29 01/02/17 06:36 80 MLS/HR Insulin Aspart (novoLOG ASPART) SLIDING SCALE If C... ACHS SC 12/26/16 21:00 01/25/17 20:59 01/02/17 12:04 18 UNITS Glucose (Glucose 40% Gel) 15-30 GRAMS 15 GRAMS... UD PRN PO 12/26/16 20:30 01/25/17 20:29 Glucose (Glucose Chew Tab) 4-8 Tablets 4 Tabl... UD PRN PO 12/26/16 20:30 01/25/17 20:29 12/29/16 07:50 4 TABS Dextrose (Dextrose 50% 50ML Syringe) 25-50ML OF 50% DW IV FOR... UD PRN IV 12/26/16 20:30 01/25/17 20:29 Glucagon (Glucagon Inj) 1 mg UD PRN SQ 12/26/16 20:30 01/25/17 20:29 Miscellaneous Information (Consult Glycemic Management Pharmacy) 1 ea UD PRN N/A 12/26/16 20:38 01/25/17 20:37 Allopurinol (Zyloprim Tab) 200 mg Q2D@0900 PO 12/28/16 09:00 01/27/17 08:59 12/30/16 09:02 200 MG Atenolol (Tenormin Tab) 25 mg QAM PO 12/27/16 09:00 01/26/17 08:59 Future Hold Cyanocobalamin (Vitamin B-12 Tab) 500 mcg QPM PO 12/26/16 21:00 01/25/17 20:59 01/01/17 21:15 500 MCG Folic Acid (Folvite Tab) 1 mg QPM PO 12/26/16 21:00 01/25/17 20:59 01/01/17 21:16 1 MG Mirabegron (Myrbetriq Er) 25 mg QAM PO 12/27/16 09:00 01/26/17 08:59 01/02/17 08:22 25 MG Paroxetine HCl (pAXil TAB) 20 mg QAM PO 12/27/16 09:00 01/26/17 08:59 01/02/17 08:23 20 MG Simvastatin (Zocor Tab) 20 mg HS PO 12/26/16 21:00 01/25/17 20:59 01/01/17 21:15 20 MG Ferrous Sulfate (Feosol Tab) 325 mg BID PO 12/26/16 21:00 01/25/17 20:59 01/02/17 08:23 325 MG Acetaminophen (Tylenol Tab) 650 mg Q4H PRN PO 12/26/16 20:45 01/25/17 20:44 12/28/16 04:51 650 MG Pramipexole Dihydrochloride (miraPEX TAB) 0.125 mg DAILY PRN PO 12/26/16 21:45 01/25/17 21:44 01/02/17 08:23 0.125 MG Calcium Carbonate (Tums Chew Tab) 500 mg Q6H PRN PO 12/27/16 04:45 01/26/17 04:44 12/28/16 19:42 500 MG Lorazepam (Ativan Inj) 0.5 mg Q4H PRN IV 12/27/16 05:00 01/26/17 04:59 12/28/16 22:34 0.5 MG Ondansetron HCl 4 mg 4 mg Q6H PRN IV 12/27/16 05:15 01/26/17 05:14 Promethazine HCl/ Sodium Chloride (Phenergan Inj/ Nss 50ml) 50.5 ml @ 204 mls/hr Q6H PRN IV 12/27/16 05:15 01/26/17 05:14 Oxymetazoline HCl (Afrin 0.05% Nasal [place]) 1 sprays Q12 NA 12/28/16 21:00 01/27/17 20:59 01/02/17 08:19 1 SPRAYS Tramadol HCl (Ultram Tab) 25 mg Q6H PRN PO 12/28/16 21:00 01/27/17 20:59 12/30/16 00:46 25 MG Hydromorphone HCl (Dilaudid Inj) 0.5 mg Q3H PRN IV 12/28/16 21:00 01/11/17 20:59 Menthol (Nice Yessi) 1 yessi PRN PRN PO 12/29/16 12:15 01/28/17 12:14 Sodium Chloride ([place] Nasal [place]) 1 sprays Q1HWA PRN NA 12/30/16 10:00 01/29/17 15:59 Insulin Glargine (Lantus Solostar Pen) HS SC 01/01/17 21:00 01/31/17 20:59 01/01/17 21:19 14 UNIT Ciprofloxacin (Cipro Tab) 500 mg BID PO 01/02/17 09:00 01/03/17 08:59 01/02/17 08:22 500 MG Hydrocortisone (Proctozone Hc 2.5% Crm) 1 appln BID PRN EXT 01/02/17 10:45 02/01/17 10:44 Diltiazem HCl (Dilacor Xr Cap) 120 mg DAILY PO 01/02/17 11:30 02/01/17 11:29 01/02/17 12:18 120 MG Review of Systems Cardiovascular: No chest pain, No edema Abdomen: No nausea, No pain, No vomiting Physical Exam Date Time Temp Pulse Resp B/P Pulse Ox O2 Delivery O2 Flow Rate FiO2 01/02/17 12:03 37.0 86 20 136/68 93 01/02/17 12:00 Room Air 01/02/17 08:00 Room Air 01/02/17 07:45 36.4 90 18 149/77 96 Room Air 01/02/17 04:00 97 Room Air 01/02/17 04:00 36.5 82 20 152/77 96 Room Air 01/02/17 00:52 142/91 01/02/17 00:01 97 Room Air 01/01/17 23:00 36.4 83 21 170/84 96 Room Air 01/01/17 20:00 Room Air 01/01/17 16:00 97 Room Air 01/01/17 15:22 36.6 103 18 141/80 97 Room Air General Appearance: no apparent distress Abdomen/GI: non tender, soft, + pertinent finding (benign appearing external hemorrhoids, no prolapsing internal, no active bleeding) Laboratory Results Last 24 Hours Test 01/01/17 13:46 01/01/17 16:48 01/01/17 19:45 01/01/17 20:18 Bedside Glucose 247 mg/dl 270 mg/dl 165 mg/dl Hemoglobin 8.6 g/dL Hematocrit 25.9 % Test 01/02/17 06:05 01/02/17 06:51 01/02/17 11:27 White Blood Count 12.95 K/uL Red Blood Count 2.64 M/uL Hemoglobin 8.0 g/dL Hematocrit 24.4 % Mean Corpuscular Volume 92.4 fL Mean Corpuscular Hemoglobin 30.3 pg Mean Corpuscular Hemoglobin Concent 32.8 g/dl RDW Standard Deviation 55.1 fL RDW Coefficient of Variation 16.8 % Platelet Count 314 K/uL Mean Platelet Volume 9.0 fL Nucleated RBC Absolute Count (auto) 0.02 K/uL Nucleated Red Blood Cells % 0.1 % Sodium Level 145 mmol/L Potassium Level 3.7 mmol/L Chloride Level 115 mmol/L Carbon Dioxide Level 21 mmol/L Anion Gap 9.0 mmol/L Blood Urea Nitrogen 12 mg/dl Creatinine 1.10 mg/dl Est Creatinine Clear Calc Drug Dose 70.8 ml/min Estimated GFR () 75.7 Estimated GFR (Non- 65.3 BUN/Creatinine Ratio 10.8 Random Glucose 178 mg/dl Calcium Level 8.2 mg/dl Magnesium Level 1.5 mg/dl Total Bilirubin 0.4 mg/dl Aspartate Amino Transf (AST/SGOT) 175 U/L Alanine Aminotransferase (ALT/SGPT) 104 U/L Alkaline Phosphatase 186 U/L Total Protein 6.7 gm/dl Albumin 2.0 gm/dl Globulin 4.7 gm/dl Albumin/Globulin Ratio 0.4 Bedside Glucose 179 mg/dl 231 mg/dl Assessment & Plan Bleeding internal hemorrhoids with supra therapeutic INR on admission Although he had some additional bleeding after colonoscopy and prep, he could have as much or more bleeding post hemorrhoidectomy as he is having now. We would prefer not to perform hemorrhoidectomy at this time. Dr. López discussed this with him. Hydrocortisone cream was added today. A home regimen was outlined on his discharge instructions. We will follow his progress but hopefully he can resume coumadin soon and if he remains stable will see him in clinic in a few weeks.
[2017-01-02] MEDS: CYANOCOBALAMIN 500 MCG TAB (VIT B-12) PO SCH (21:12)
[2017-01-02] MEDS: SIMVASTATIN 20 MG TAB PO SCH (21:12)
[2017-01-02] MEDS: INSULIN GLARGINE SOLOSTAR 100 UNITS/ML 3 ML PEN SC SCH (21:12)
[2017-01-03] VITALS (9 sets, daily range): BP systolic 138–171; BP diastolic 57–86; PULSE 73–85; TEMP 36.3–37.5; O2SAT 95–99
[2017-01-03 05:25] LABS: MEAN CELL VOLUME 91.9 fL (80-100); MEAN CORPUSCULAR HEMOGLOBIN 30.4 pg (25-34); MEAN CORPUSCULAR HGB CONC 33.1 g/dl (32-36); MEAN PLATELET VOLUME 9.1 fL (7.4-10.4); PLATELET COUNT 322 K/uL (130-400); RED BLOOD COUNT 2.83 M/uL (4.7-6.1); WHITE BLOOD COUNT 13.52 K/uL (4.8-10.8)
[2017-01-03] MEDS: SODIUM CHLORIDE 0.9% 1000ML 1,000 ML IV SCH (05:43)
[2017-01-03 05:59] LABS: BUN/CREATININE RATIO 8.8 (10-20); CALCIUM 8.7 mg/dl (8.5-10.1); CREATININE 1.1 mg/dl (0.60-1.40); MAGNESIUM 1.4 mg/dl (1.8-2.4); POTASSIUM 3.8 mmol/L (3.5-5.1)
[2017-01-03 06:02] LABS: ALB/GLOB RATIO 0.5 (0.9-2)
[2017-01-03] MEDS: INSULIN ASPART 100 UNITS/ML 3 ML PEN SC SCH ×4 (08:29→21:48)
[2017-01-03] MEDS: MAGNESIUM SULFATE 1GM / D5W 1 GM in PREMIXED IN D5W 100 ML IV SCH ×3 (08:31→11:44)
[2017-01-03] MEDS: PAROXETINE 20 MG TAB PO SCH (08:34)
[2017-01-03] MEDS: ALLOPURINOL 100 MG TAB PO SCH (08:34)
[2017-01-03] MEDS: MIRABEGRON ER 25 MG TAB PO SCH (08:34)
[2017-01-03] MEDS: FERROUS SULFATE 325 MG TAB PO SCH ×2 (08:34→21:44)
[2017-01-03] MEDS: DILTIAZEM HCL 120 MG ER CAP PO SCH (08:34)
[2017-01-03] MEDS: OXYMETAZOLINE HCL 0.05% NA SPR 15 ML BTL SCH ×2 (08:35→21:00)
[2017-01-03] MEDS: MAGNESIUM OXIDE 400 MG TAB PO SCH ×2 (09:53→21:43)
[2017-01-03] MEDS: LISINOPRIL 2.5 MG TAB PO SCH (09:53)
--- NOTE | 2017-01-03 12:25 | Progress Note ---
Internal Med Progress Note Date of Service: Jan 03, 2017. Provider Documentation: SUBJECTIVE: Patient continues to have fresh red blood per rectum x 3 episodes today. No diarrhea, abdominal pain, fever, chills, SOB, chest pain, cough, dizziness, syncope Tele- no events OBJECTIVE: Vital Signs-as noted below Exam: General- No distress Neck- supple, no JVD Lungs- clear to auscultation, no wheezing Heart- regular rhythm Abdomen- normal bowel sounds, soft, nontender Extremities- no edema Neuro- alert, oriented x 3; Grossly no focal deficits Lab data as noted below. ASSESSMENT & PLAN: ACUTE RENAL FAILURE : Resolved LIKELY PRE RENAL FROM DIARRHEAL ILLNESS/ATN CONCOMITANT USE OF NSAIDS Creatine on admission 5.2 that improved to 1.10 (Baseline creatine 0.8) -IV fluids at 80 cc/hour- Okay to discontinue -Work up- Renal US showed trace left perinephric fluid. No hydronephrosis -Nephrology on board- appreciate input GI BLEEDING, LIKELY SECONDARY TO LARGE INTERNAL/EXTERNAL HEMORRHOIDS, SUPRA THERAPEUTIC INR in setting of using NSAIDS Mostly due to INR supra therapeutic (INR >8) and was taking Motrin S/P EGD on 01/01/17- Reflux esophagitis S/P Colonoscopy on 01/01/17- Large internal/External hemorrhoids (likely source of hematochezia), one 5 mm polyp in transverse colon, removed with a cold snare. Resected and retrieved, one 5 mm polyp in sigmoid colon, removed with a cold snare, resected and retrieved. Repeat colonoscopy in 5 years based on pathology results -Continues to have fresh red blood per rectum. -Received Vit K during this admission, Coumadin on hold, INR 1.3 -Hgb stable at 8.6 -S/P 3 unit PRBC since admission -Continue with Omeprazole 20 mg daily -Work up- C diff- negative -GI consulted- appreciated input PLAN: Have mechanical aortic valve, so ideally needs to be on coumadin. But persistent fresh red blood per rectum. Had surgery see him for his hemorrhoids- for now recommends non conservative approach- Hydrocortisone cream. Will see if it helps. Would like to restart on his coumadin at a low dose while in hospital if bleeding stops. ACUTE BLOOD LOSS ANEMIA: Due to GI bleed Hbg 8.6 today -Transfused 3 unit PRBC so far during the admission course -Continue monitor H & H RECURRENT EPISTAXIS- Resolved Due to elevated INR S/P cauterization at the ER; S/P Vitamin K in ER; Coumadin on hold -S/P ENT consultation: Was discussed with Dr. Graham by Dr Moya that recommended afrin spray BID and nasal pray q1h LEUKOCYTOSIS- Trending down Ruled out Sepsis. WBC 35K and hypotension on Admission -Procalcitonin elevated -Urine cx positive for E.Coli -S/P IV Ceftriaxone --> changed to Ciprofloxacin BID UTI (E coli) Presented with WBC 35K -Afebrile, WBC trending down -Changed rocephin IV to cipro BID MECHANICAL AORTIC VALVE INR > 8 on admission; received Vit K -INR 1.3 -Coumadin continue to hold due to GI bleed -Challenging as has a mechanical aortic valve, but unfortunately due to active bleeding, will have to continue to hold coumadin. Understands the risks while holding coumadin, including stroke. DM 2 hold Insulin and oral meds ISS -Pharmacy consulted HYPERTENSION Blood pressure on the lower side on presentation, now elevated -Restarted BB, Diltiazem as at home. Will restart lisinopril today as BP elevated -Continue Atenolol JAMES -CPAP RESTLESS LEGS -Pramipexole trial started -Monitor DVT prophylaxis INR 1.3 SCDs due to GI bleed Full code per patient Consultants: Gastro Nephro DISPOSITION Ok to transfer to med-surg Continue to monitor. Updated by bedside. Vital Signs: Date Time Temp Pulse Resp B/P Pulse Ox O2 Delivery O2 Flow Rate FiO2 01/03/17 11:12 37.5 85 18 167/86 96 Room Air 01/03/17 10:10 96 Room Air 01/03/17 09:03 96 Room Air 01/03/17 08:00 37.4 85 20 171/83 96 Room Air 01/03/17 04:00 Room Air 01/03/17 03:20 36.6 83 18 138/57 95 Room Air 01/03/17 00:00 Room Air 01/02/17 23:03 36.7 75 20 154/73 96 Room Air 01/02/17 20:00 Room Air 01/02/17 18:50 36.5 82 18 140/77 98 Room Air 01/02/17 16:00 Room Air 01/02/17 15:00 36.7 86 18 152/74 96 Room Air Lab Results: Results Past 24 Hours Test 01/02/17 16:27 01/02/17 20:07 01/03/17 04:54 01/03/17 06:25 Range/Units Bedside Glucose 210 181 182 70-99 mg/dl White Blood Count 13.52 4.8-10.8 K/uL Red Blood Count 2.83 4.7-6.1 M/uL Hemoglobin 8.6 14.0-18.0 g/dL Hematocrit 26.0 42-52 % Mean Corpuscular Volume 91.9 80-100 fL Mean Corpuscular Hemoglobin 30.4 25-34 pg Mean Corpuscular Hemoglobin Concent 33.1 32-36 g/dl RDW Standard Deviation 56.6 36.4-46.3 fL RDW Coefficient of Variation 17.2 11.5-14.5 % Platelet Count 322 130-400 K/uL Mean Platelet Volume 9.1 7.4-10.4 fL Sodium Level 144 136-145 mmol/L Potassium Level 3.8 3.5-5.1 mmol/L Chloride Level 112 98-107 mmol/L Carbon Dioxide Level 24 21-32 mmol/L Anion Gap 8.0 3-11 mmol/L Blood Urea Nitrogen 10 7-18 mg/dl Creatinine 1.10 0.60-1.40 mg/dl Est Creatinine Clear Calc Drug Dose 70.3 ml/min Estimated GFR () 75.7 Estimated GFR (Non- 65.3 BUN/Creatinine Ratio 8.8 10-20 Random Glucose 170 70-99 mg/dl Calcium Level 8.7 8.5-10.1 mg/dl Magnesium Level 1.4 1.8-2.4 mg/dl Total Bilirubin 0.4 0.2-1 mg/dl Aspartate Amino Transf (AST/SGOT) 91 15-37 U/L Alanine Aminotransferase (ALT/SGPT) 88 12-78 U/L Alkaline Phosphatase 176 45-117 U/L Total Protein 7.0 6.4-8.2 gm/dl Albumin 2.2 3.4-5.0 gm/dl Globulin 4.8 2.5-4.0 gm/dl Albumin/Globulin Ratio 0.5 0.9-2 Test 01/03/17 11:42 Range/Units Bedside Glucose 190 70-99 mg/dl
[2017-01-03] MEDS: HYDROCORTISONE HC 2.5% CRM 30GM TUBE EXT SCH ×2 (12:30→21:00)
--- NOTE | 2017-01-03 13:17 | Pharmacy Progress Note ---
Glycemic Control: Progress Nt Date of Service Jan 03, 2017. Scope Glycemic Pharmacist consulted by Dr Lynn on 12/26/16 for glycemic control and to write orders per [facility] inpatient glycemic control protocol. Objective Accuchecks BSG (last 24hrs): Test 01/02/17 16:27 01/02/17 20:07 01/03/17 04:54 01/03/17 06:25 Bedside Glucose 210 mg/dl (70-99) 181 mg/dl (70-99) 182 mg/dl (70-99) Random Glucose 170 mg/dl (70-99) Test 01/03/17 11:42 Bedside Glucose 190 mg/dl (70-99) Laboratory Data (last 24hrs) Test 01/03/17 04:54 Anion Gap 8.0 mmol/L BUN/Creatinine Ratio 8.8 Blood Urea Nitrogen 10 mg/dl Creatinine 1.10 mg/dl Potassium Level 3.8 mmol/L Sodium Level 144 mmol/L White Blood Count 13.52 K/uL HbA1c: Test 12/27/16 01:50 Hemoglobin A1c 6.6 % (4.5-5.6) H Recent Pertinent Medications Outpatient Anti-diabetic Regimen: * Amaryl 4mg PO Daily * Metformin 1,000mg PO BID with meals * Lantus 40 units SQ HS * NovoLog SSI as directed The patient is currently receiving: * Basal insulin: Lantus 20 units every 24 hours given at bedtime * Correctional Insulin: NovoLog Correction per scale AC+HS Goal Range: Low 110 mg/dL - High 140 mg/dL Correction Factor: 20 mg/dL/unit * Prandial insulin: Per carb ratio of 1 unit per 7 grams CHO consumed * Oral Agents: on hold for admission Risk Factors for Insulin Resistance: * Infection * Recent Procedure * Diet Assessment & Plan ASSESSMENT: * 76yo T2DM male with adequate degree of outpatient control with current outpatient antidiabetic regimen * Pt is maintained on multiple oral agents + SQ basal bolus insulin regimen * Current inpatient regimen is just SQ basal bolus insulin regimen (oral agents on hold) --> pt is requiring significantly less insulin as compared to outpatient insulin doses d/t reduced diet 01/02/17 * Pt has been requiring ~ 40 units of insulin per day with sub-adequate control * AM fasting BSG elevated at 179mg/dl --> increase in basal insulin needed * Post-prandial BSGs elevated/rise throughout the day --> CF/CR need tightened * Have been dosing conservatively d/t NPO/clear liquid diet. However, diet advanced to full liquids therefore increase in insulin regimen warranted. 01/03/17 * BSGs elevated over the past 24 hours despite additional Lantus and tighter NovoLog parameters * further tighten NovoLog parameters * continue same basal dosing until closer to steady state * Overall, 64 units of insulin given yesterday (more than the prior day) * ADA & AACE recommend a goal blood sugar range 140-180 mg/dl for the majority of critically ill & non-critically ill patients. However, more stringent targets may be selected in individual cases. Will utilize more stringent goal of 110-140mg/dl based on patient age, comorbidities, and tight glycemic control at baseline. PLAN FOR INPATIENT GLYCEMIC CONTROL: * Continue to hold outpatient oral diabetes medications- may resume at discharge * Continue Basal insulin with Lantus to 20 units SQ HS * Administer 1/2 dose (10 units) if BSG < 110mg/dl * Tighten NOVOLOG per scale ACHS or Q6hrs while NPO * Goal Range: Low 110 mg/dL - High 140 mg/dL * Correction Factor: 18 mg/dL/unit * Nutritional / Prandial insulin per carb ratio of 1 unit per 6 grams CHO consumed RECOMMENDATIONS FOR DISCHARGE: * Likely, Mr Chau will be able to continue his home regime at discharge * Please note that the plan above was derived based on current level of insulin resistance and hospital stress. These recommendations are appropriate for inpatient admission only. Plan of care upon discharge will need to be reassessed to avoid potential outpatient hypo/hyperglycemia. Thank you.
--- NOTE | 2017-01-03 14:35 | Surgery Progress Note ---
Surgery Progress Note Date of Service Jan 03, 2017. Subjective had some bleeding overnight and this AM Objective Vital Signs: Date Time Temp Pulse Resp B/P Pulse Ox O2 Delivery O2 Flow Rate FiO2 01/03/17 12:00 96 Room Air 01/03/17 11:12 37.5 85 18 167/86 96 Room Air 01/03/17 10:10 96 Room Air 01/03/17 09:03 96 Room Air 01/03/17 08:00 37.4 85 20 171/83 96 Room Air 01/03/17 04:00 Room Air 01/03/17 03:20 36.6 83 18 138/57 95 Room Air 01/03/17 00:00 Room Air 01/02/17 23:03 36.7 75 20 154/73 96 Room Air 01/02/17 20:00 Room Air 01/02/17 18:50 36.5 82 18 140/77 98 Room Air 01/02/17 16:00 Room Air 01/02/17 15:00 36.7 86 18 152/74 96 Room Air Abdomen: soft Laboratory Results: Results Past 24 Hours Test 01/02/17 16:27 01/02/17 20:07 01/03/17 04:54 01/03/17 06:25 Range/Units Bedside Glucose 210 181 182 70-99 mg/dl White Blood Count 13.52 4.8-10.8 K/uL Red Blood Count 2.83 4.7-6.1 M/uL Hemoglobin 8.6 14.0-18.0 g/dL Hematocrit 26.0 42-52 % Mean Corpuscular Volume 91.9 80-100 fL Mean Corpuscular Hemoglobin 30.4 25-34 pg Mean Corpuscular Hemoglobin Concent 33.1 32-36 g/dl RDW Standard Deviation 56.6 36.4-46.3 fL RDW Coefficient of Variation 17.2 11.5-14.5 % Platelet Count 322 130-400 K/uL Mean Platelet Volume 9.1 7.4-10.4 fL Sodium Level 144 136-145 mmol/L Potassium Level 3.8 3.5-5.1 mmol/L Chloride Level 112 98-107 mmol/L Carbon Dioxide Level 24 21-32 mmol/L Anion Gap 8.0 3-11 mmol/L Blood Urea Nitrogen 10 7-18 mg/dl Creatinine 1.10 0.60-1.40 mg/dl Est Creatinine Clear Calc Drug Dose 70.3 ml/min Estimated GFR () 75.7 Estimated GFR (Non- 65.3 BUN/Creatinine Ratio 8.8 10-20 Random Glucose 170 70-99 mg/dl Calcium Level 8.7 8.5-10.1 mg/dl Magnesium Level 1.4 1.8-2.4 mg/dl Total Bilirubin 0.4 0.2-1 mg/dl Aspartate Amino Transf (AST/SGOT) 91 15-37 U/L Alanine Aminotransferase (ALT/SGPT) 88 12-78 U/L Alkaline Phosphatase 176 45-117 U/L Total Protein 7.0 6.4-8.2 gm/dl Albumin 2.2 3.4-5.0 gm/dl Globulin 4.8 2.5-4.0 gm/dl Albumin/Globulin Ratio 0.5 0.9-2 Test 01/03/17 11:42 Range/Units Bedside Glucose 190 70-99 mg/dl Assessment & Plan Bleeding internal hemorrhoids with supra therapeutic INR on admission would continue local treatment, continue to monitor, H&H stable
[2017-01-03] MEDS: SIMVASTATIN 20 MG TAB PO SCH (21:44)
[2017-01-03] MEDS: CYANOCOBALAMIN 500 MCG TAB (VIT B-12) PO SCH (21:44)
[2017-01-03] MEDS: INSULIN GLARGINE SOLOSTAR 100 UNITS/ML 3 ML PEN SC SCH (21:49)
[2017-01-04 06:51] LABS: BUN/CREATININE RATIO 9.5 (10-20); CALCIUM 8.5 mg/dl (8.5-10.1); CREATININE 1.1 mg/dl (0.60-1.40); MAGNESIUM 1.5 mg/dl (1.8-2.4); POTASSIUM 3.7 mmol/L (3.5-5.1)
[2017-01-04 07:08] VITALS: BP 152/78; PULSE 96; TEMP 36.6; O2SAT 96
[2017-01-04 07:17] LABS: HEMATOCRIT 25.1 % (42-52); MEAN CELL VOLUME 92.6 fL (80-100); MEAN CORPUSCULAR HEMOGLOBIN 30.6 pg (25-34); MEAN CORPUSCULAR HGB CONC 33.1 g/dl (32-36); MEAN PLATELET VOLUME 9.2 fL (7.4-10.4); PLATELET COUNT 310 K/uL (130-400); RED BLOOD COUNT 2.71 M/uL (4.7-6.1); WHITE BLOOD COUNT 10.38 K/uL (4.8-10.8)
[2017-01-04 08:00] VITALS: O2SAT 96
[2017-01-04] MEDS ORDERED: INSULIN GLARGINE SOLOSTAR 100 UNITS/ML 3 ML PEN SC ONE (09:00)
--- NOTE | 2017-01-04 09:17 | Progress Note ---
Internal Med Progress Note Date of Service: Jan 04, 2017. Provider Documentation: SUBJECTIVE: Patient is doing much better today No bleeding from hemorrhoids yesterday, overnight or today > 24 hours. Had 2 BMs , but no blood No diarrhea, abdominal pain, fever, chills, SOB, chest pain, cough, dizziness, syncope OBJECTIVE: Vital Signs-as noted below Exam: General- AA0X 3, No distress Neck- supple, no JVD Lungs- clear to auscultation, no wheezing Heart- regular rhythm Abdomen- normal bowel sounds, soft, nontender Extremities- no edema Neuro- alert, oriented x 3; Grossly no focal deficits Lab data as noted below. ASSESSMENT & PLAN: ACUTE RENAL FAILURE : Resolved LIKELY PRE RENAL FROM DIARRHEAL ILLNESS / ATN CONCOMITANT USE OF NSAIDS Creatine on admission 5.2 that improved to 1.10 (Baseline creatine 0.8) -S/P IVF -Work up - Renal US showed trace left perinephric fluid. No hydronephrosis -Nephrology on board - appreciate input. Signed off GI BLEEDING SECONDARY TO LARGE INTERNAL / EXTERNAL HEMORRHOIDS, SUPRA THERAPEUTIC INR in setting of using NSAIDS : Mostly due to Hemorrhoids/ INR supra therapeutic (INR >8) and was taking Motrin S/P EGD on 01/01/17- Reflux esophagitis S/P Colonoscopy on 01/01/17- Large internal/External hemorrhoids (likely source of hematochezia), one 5 mm polyp in transverse colon, removed with a cold snare. Resected and retrieved, one 5 mm polyp in sigmoid colon, removed with a cold snare, resected and retrieved. Repeat colonoscopy in 5 years based on pathology results -No more bleeding episodes for > 24 hours after use of hydrocortisone cream. H & H stable at 8.3 -Received Vit K during this admission, Coumadin on hold, INR 1.3 -S/P 3 unit PRBC transfusion since admission -Continue with Omeprazole 20 mg daily -Surgery was consulted for hemorrhoids- At this point, recommended Hydrocortison BID and follow up outpatient soon to consider hemorrhoidectomy which I would strongly recommend as needs to be on coumadin for mechanical aortic valve -Work up - C diff - Negative -GI consulted- appreciated input PLAN: Okay to restart coumadin as bleeding has stopped, Hb stable and has mechanical aortic valve. Ideally should do bridging, but with significant bleeding for 4-5 days requiring 3 units of PRBCs transfusion would avoid it and just re - start on coumadin. [place] goal - 2.5-3.5 . Would try to keep INR at lower level of range. Start with a lower dose of coumadin 5 mg (at home was on 10 mg but came with INR of 8 while being on NSAIDS). Close monitoring at coumadin clinic/follow up with PCP. If any issues with hemorrhoids, need to contact surgery as primary issue is hemorrhoids with high risk of bleeding while being on coumadin, which needs to be addressed EDWARD to avoid recurrent bleeds. ACUTE BLOOD LOSS ANEMIA: Due to GI bleed. No more bleeding per rectum Hbg 8.3 today- stable. -Transfused 3 unit PRBC so far during the admission course -Continue monitor H & H outpatient HYPOMAGNESEMIA Likely secondary to GI losses -Refractory in spite of multiple transfusions of IV Magnesium -Will replace with IV Mg x 2 mg today and put him on Mg oxide TID -Need to monitor closely outpatient and evaluate further etiology if persistently low RECURRENT EPISTAXIS- Resolved Due to elevated INR S/P cauterization at the ER; S/P Vitamin K in ER; Coumadin on hold -S/P ENT consultation: Was discussed with Dr. Graham by Dr Moya that recommended Afrin spray BID and nasal pray q1h LEUKOCYTOSIS- Resolved Ruled out Sepsis. WBC 35K and hypotension on Admission -Procalcitonin elevated ; Blood cx x 2 , C diff- negative -Urine cx positive for E.Coli -S/P IV Ceftriaxone --> changed to Ciprofloxacin BID- to complete course of 7 days of antibiotics UTI (E coli) Presented with WBC 35K--> normal -Afebrile, WBC trending down -Changed rocephin IV to cipro BID0- to finish course of 7 days of antibiotics MECHANICAL AORTIC VALVE INR > 8 on admission; received Vit K -INR 1.3 -Coumadin continue to hold due to GI bleed -Challenging as has a mechanical aortic valve, but unfortunately due to active bleeding, will have to continue to hold coumadin. Understands the risks while holding coumadin, including stroke. DM 2 Hold Insulin and oral meds ISS -Pharmacy consulted HYPERTENSION Blood pressure on the lower side on presentation, now elevated -Restarted BB, Diltiazem, lisinopril as at home JAMES -CPAP RESTLESS LEGS -Pramipexole trial started -Monitor DVT prophylaxis INR 1.3 SCDs due to GI bleed Full code per patient Consultants: Gastro Nephro DISPOSITION Eager to be discharged. Okay to discharge home with close follow up with coumadin clinic/PCP/Surgery Did high school counselor about warning signs- if excessive bleeding, dizziness, syncope, need to come to ED EDWARD Vital Signs: Date Time Temp Pulse Resp B/P Pulse Ox O2 Delivery O2 Flow Rate FiO2 01/04/17 07:08 36.6 96 18 152/78 96 Room Air 01/04/17 01:09 Room Air 01/03/17 23:22 36.6 82 20 149/74 97 Room Air 01/03/17 16:10 99 Room Air 01/03/17 15:04 36.3 73 18 148/79 99 Room Air 01/03/17 12:00 96 Room Air 01/03/17 11:12 37.5 85 18 167/86 96 Room Air 01/03/17 10:10 96 Room Air Lab Results: Results Past 24 Hours Test 01/03/17 11:42 01/03/17 16:17 01/03/17 19:36 01/04/17 05:40 Range/Units Bedside Glucose 190 184 276 70-99 mg/dl White Blood Count 10.38 4.8-10.8 K/uL Red Blood Count 2.71 4.7-6.1 M/uL Hemoglobin 8.3 14.0-18.0 g/dL Hematocrit 25.1 42-52 % Mean Corpuscular Volume 92.6 80-100 fL Mean Corpuscular Hemoglobin 30.6 25-34 pg Mean Corpuscular Hemoglobin Concent 33.1 32-36 g/dl RDW Standard Deviation 56.4 36.4-46.3 fL RDW Coefficient of Variation 17.2 11.5-14.5 % Platelet Count 310 130-400 K/uL Mean Platelet Volume 9.2 7.4-10.4 fL Sodium Level 144 136-145 mmol/L Potassium Level 3.7 3.5-5.1 mmol/L Chloride Level 111 98-107 mmol/L Carbon Dioxide Level 24 21-32 mmol/L Anion Gap 9.0 3-11 mmol/L Blood Urea Nitrogen 11 7-18 mg/dl Creatinine 1.10 0.60-1.40 mg/dl Est Creatinine Clear Calc Drug Dose 70.3 ml/min Estimated GFR () 75.7 Estimated GFR (Non- 65.3 BUN/Creatinine Ratio 9.5 10-20 Random Glucose 151 70-99 mg/dl Calcium Level 8.5 8.5-10.1 mg/dl Magnesium Level 1.5 1.8-2.4 mg/dl Test 01/04/17 07:02 Range/Units Bedside Glucose 172 70-99 mg/dl
[2017-01-04] MEDS ORDERED: WARF5TAB7 PO (09:19)
[2017-01-04] MEDS ORDERED: MGNO400 PO (09:20)
[2017-01-04] MEDS ORDERED: ANSHCCR EXT (09:24)
--- NOTE | 2017-01-04 09:25 | Discharge Summary ---
Discharge Summary Date of Service Jan 04, 2017. Discharge Summary Admission Date: Dec 26, 2016 at 19:32 Discharge Date: Jan 04, 2017 Discharge Disposition: Home Principal Diagnosis: 1. CLIFFORD 2. GI bleeding secondary to Hemorrhoids - Large (Internal/External) 3. Acute blood loss anemia 4. Hypomagnesemia 5. UTI (E coli) Secondary Diagnoses/Problems: 1. Hx of Mechanical aortic valve 2. DM-2 3. HTN 4. JAMES Procedures: Tele monitoring EGD/Colonoscopy on 01/01/17 IV fluids 3 Units of PRBCs Renal US CXR Antibiotics Consultations: Gastro Nephro Pending Studies/Follow-Up: Instructions / Follow-Up Instructions / Follow-Up MEDICATION CHANGES: 1. Coumadin dose decreased to 5 mg daily from 10 mg daily. To be started from today. If you start bleeding, do contact your PCP to get further instructions before continuing it. 2. Hydrocortisone ointment to be applied rectally twice a day for hemorrhoids 3. Magnesium oxide 400 mg PO TID 4. Ciprofloxacin for 5 days as instructed AVOID CONSTIPATION FOLLOW UP 1. With Dr Kobe Watkins on 01/09/17 at 10:55 AM 2. Follow up with surgery as per instructions 3. Follow up with coumadin on sunday for INR testing MONITOR 1. H & H, INR to be monitored outpatient 2. Magnesium monitoring outpatient Medication Reconciliation New Medications: Ciprofloxacin (Ciprofloxacin) 400 Mg/40 Ml Inj 400 MG PO BID for 5 Days, #10 TAB Magnesium Oxide (Magnesium-Oxide) 400 Mg Tab 400 MG PO TID for 10 Days, #30 TAB Hydrocortisone (Proctosol Hc) 90 Appln/30 Gm Cr 1 APPLN EXT BID for 30 Days, #1 TUBE 2 Refills Changed Medications: Warfarin Sod (Jantoven) 5 Mg Tab 5 MG PO DAILY for 30 Days, #30 TAB (Changed from: SUNDAY) Continued Medications: Allopurinol (Zyloprim) 300 Mg Tab 300 MG PO Q2D, TAB Ascorbic Acid (Vitamin C *) 500 Mg Tab 500 MG PO Q2D, 0 Refills Atenolol (Tenormin) 50 Mg Tab 25 MG PO QAM Clobetasol Propionate (Clobetasol Propionate Cream 0.05%) 90 Appln/30 Gm Cr 1 APPLN TOP BID PRN for PRN, 0 Refills Cyanocobalamin (Vitamin B12 100 Mcg) 100 Mcg Tab 500 MCG PO QPM Diltiazem Hcl Ext Rel (Tiazac) 120 Mg Capcr 120 MG PO QAM, CAP Ferrous Sulfate (Iron (Ferrous Sulfate)) 50 Mg Tab 65 MG PO BID Fish Oil ([place]-3) 1 Ea Cap 1 CAPSULE PO Q2D Fluocinonide (Lidex 0.05% Cream) 90 Appln/30 Gm Cr 1 APPLN TOP DAILY PRN Folic Acid (Folvite) 1 Mg Tab 1 MG PO QPM, TAB Gemfibrozil (Lopid) 600 Mg Tab 600 MG PO BID, 0 Refills Glimepiride (Amaryl *) 4 Mg Tab 4 MG PO QAM, 0 Refills Insulin Aspart (Novolog Flexpen) 100 Units/Ml Inj 1 DOSE SQ SLIDING SCALE Insulin Glargine (Lantus) Vial 40 SC QPM, 0 Refills Lisinopril (Lisinopril) 2.5 Mg Tab 2.5 MG PO QPM Metformin HCL (Glucophage *) 1,000 Mg Tab 1000 MG PO BID, 0 Refills Mirabegron (Myrbetriq Er) 50 Mg Tab 50 MG PO QAM Multivitamin (Multivitamin) Tab 1 TABLET PO Q2D AM Paroxetine (Paxil) 20 Mg Tab 20 MG PO QAM, 0 Refills Simvastatin (Zocor) 20 Mg Tab 20 MG PO HS Discontinued Medications: Warfarin Sod (Jantoven) 10 Mg Tab 10 MG PO [id number], TAB Admission Information HPI (per Admitting provider): 76 year old pleasant male with history of Mechanical Aortic Valve on Coumadin, DM, HTN, BPH, Obstructive Sleep Apnea presenting with epistaxis and weakness. Patient was apparently at his usual state of health until last week when he had approximately 1 week history of profuse diarrhea. At that time patient was also reporting urinary incontinence, chills and malaise. Patient also admits to taking Motrin with Diphenhdyramine for the past month to help him sleep. Today, patient presented to the ER for epistaxis. His right nares was cauterized by Dr. Dale at the ER, which resolved the epistaxis. INR was > 8.0, and he was given Vit K 10mg PO. Also, labs drawn showed patient's crea to be 5.2, HCO3 19. On exam, patient is alert, pleasant, comfortable. States he just feels tired all the time. Denies abdominal pain, nausea, confusion, oliguria. No other symptoms. Physical Exam (per Admitting): General Appearance: WD/WN, no apparent distress Head: normocephalic, atraumatic Eyes: normal inspection, EOMI, sclerae normal ENT: hearing grossly normal, pharynx normal, + pertinent finding (no epistaxis) Neck: supple, no adenopathy, thyroid normal, no JVD, trachea midline Respiratory/Chest: chest non-tender, lungs clear, normal breath sounds, no respiratory distress, no accessory muscle use Cardiovascular: regular rate, rhythm, no edema, no JVD, no murmur Abdomen/GI: normal bowel sounds, non tender, soft, no organomegaly Back: normal inspection, no CVA tenderness Extremities/Musculoskelatal: normal inspection, no calf tenderness, normal capillary refill, no pedal edema, normal range of motion Neurologic/Psych: weight guesser II-XII nml as tested, no motor/sensory deficits, alert , normal mood/affect, normal reflexes, oriented x 3 Skin: normal color, warm/dry, no rash Lymphatic: no adenopathy Hospital Course ACUTE RENAL FAILURE : Resolved LIKELY PRE RENAL FROM DIARRHEAL ILLNESS / ATN CONCOMITANT USE OF NSAIDS Creatine on admission 5.2 that improved to 1.10 (Baseline creatine 0.8) -S/P IVF -Work up - Renal US showed trace left perinephric fluid. No hydronephrosis -Nephrology on board - appreciate input. Signed off GI BLEEDING SECONDARY TO LARGE INTERNAL / EXTERNAL HEMORRHOIDS, SUPRA THERAPEUTIC INR in setting of using NSAIDS : Mostly due to Hemorrhoids/ INR supra therapeutic (INR >8) and was taking Motrin S/P EGD on 01/01/17- Reflux esophagitis S/P Colonoscopy on 01/01/17- Large internal/External hemorrhoids (likely source of hematochezia), one 5 mm polyp in transverse colon, removed with a cold snare. Resected and retrieved, one 5 mm polyp in sigmoid colon, removed with a cold snare, resected and retrieved. Repeat colonoscopy in 5 years based on pathology results -No more bleeding episodes for > 24 hours after use of hydrocortisone cream. H & H stable at 8.3 -Received Vit K during this admission, Coumadin on hold, INR 1.3 -S/P 3 unit PRBC transfusion since admission -Continue with Omeprazole 20 mg daily -Surgery was consulted for hemorrhoids- At this point, recommended Hydrocortison BID and follow up outpatient soon to consider hemorrhoidectomy which I would strongly recommend as needs to be on coumadin for mechanical aortic valve -Work up - C diff - Negative -GI consulted- appreciated input PLAN: Okay to restart coumadin as bleeding has stopped, Hb stable and has mechanical aortic valve. Ideally should do bridging, but with significant bleeding for 4-5 days requiring 3 units of PRBCs transfusion would avoid it and just re - start on coumadin. [place] goal - 2.5-3.5 . Would try to keep INR at lower level of range. Start with a lower dose of coumadin 5 mg (at home was on 10 mg but came with INR of 8 while being on NSAIDS). Close monitoring at coumadin clinic/follow up with PCP. If any issues with hemorrhoids, need to contact surgery as primary issue is hemorrhoids with high risk of bleeding while being on coumadin, which needs to be addressed EDWARD to avoid recurrent bleeds. ACUTE BLOOD LOSS ANEMIA: Due to GI bleed. No more bleeding per rectum Hbg 8.3 today- stable. -Transfused 3 unit PRBC so far during the admission course -Continue monitor H & H outpatient HYPOMAGNESEMIA Likely secondary to GI losses -Refractory in spite of multiple transfusions of IV Magnesium -Will replace with IV Mg x 2 mg today and put him on Mg oxide TID -Need to monitor closely outpatient and evaluate further etiology if persistently low RECURRENT EPISTAXIS- Resolved Due to elevated INR S/P cauterization at the ER; S/P Vitamin K in ER; Coumadin on hold -S/P ENT consultation: Was discussed with Dr. Graham by Dr Moya that recommended Afrin spray BID and nasal pray q1h LEUKOCYTOSIS- Resolved Ruled out Sepsis. WBC 35K and hypotension on Admission -Procalcitonin elevated ; Blood cx x 2 , C diff- negative -Urine cx positive for E.Coli -S/P IV Ceftriaxone --> changed to Ciprofloxacin BID- to complete course of 7 days of antibiotics UTI (E coli) Presented with WBC 35K--> normal -Afebrile, WBC trending down -Changed rocephin IV to cipro BID0- to finish course of 7 days of antibiotics MECHANICAL AORTIC VALVE INR > 8 on admission; received Vit K -INR 1.3 -Coumadin continue to hold due to GI bleed -Challenging as has a mechanical aortic valve, but unfortunately due to active bleeding, will have to continue to hold coumadin. Understands the risks while holding coumadin, including stroke. DM 2 Hold Insulin and oral meds ISS -Pharmacy consulted HYPERTENSION Blood pressure on the lower side on presentation, now elevated -Restarted BB, Diltiazem, lisinopril as at home JAMES -CPAP RESTLESS LEGS -Pramipexole trial started -Monitor DVT prophylaxis INR 1.3 SCDs due to GI bleed Full code per patient Consultants: Gastro Nephro DISPOSITION Eager to be discharged. Okay to discharge home with close follow up with coumadin clinic/PCP/Surgery Did professor of counseling about warning signs- if excessive bleeding, dizziness, syncope, need to come to ED [facility] Total time spent on discharge = 38 minutes This includes examination of the patient, discharge planning, medication reconciliation, and communication with other providers. Discharge Instructions Activity Recommendations Activity Limitations: resume your previous activity . Instructions / Follow-Up Instructions / Follow-Up MEDICATION CHANGES: 1. Coumadin dose decreased to 5 mg daily from 10 mg daily. To be started from today. If you start bleeding, do contact your PCP to get further instructions before continuing it. 2. Hydrocortisone ointment to be applied rectally twice a day for hemorrhoids 3. Magnesium oxide 400 mg PO TID AVOID CONSTIPATION FOLLOW UP 1. With Dr Kobe Watkins on 01/09/17 at 10:55 AM 2. Follow up with surgery as per instructions 3. Follow up with coumadin on sunday for INR testing MONITOR 1. H & H, INR to be monitored outpatient 2. Magnesium monitoring outpatient Current Hospital Diet Patient's current hospital diet: AHA Diet (Heart Healthy), Low Sodium Diet (2gm Na), Diabetes Type 2 Diet Discharge Diet Recommended Diet: AHA Diet (Heart Healthy), Low Sodium Diet (2gm Na), Diabetes Type 2 Diet Procedures Procedures Performed: EGD COLONOSCOPY Pending Studies Studies pending at discharge: no Laboratory Results Hemoglobin A1c Test 12/27/16 01:50 Range/Units Estimated Average Glucose 143 mg/dl Hemoglobin A1c 6.6 H 4.5-5.6 % Medical Emergencies . Who to Call and When: Medical Emergencies: If at any time you feel your situation is an emergency, please call 911 immediately. . Non-Emergent Contact Non-Emergency issues call your: Primary Care Provider . . "Provider Documentation" section prepared by Kandace Hercules. VTE Core Measure Inpt VTE Proph given/why not?: T.E.D. Stockings, SCD's, Contraindicated (RE: GI BLEEDING)
[2017-01-04] MEDS ORDERED: [UNRECOGNIZED DRUG - CODE] PO (09:26)
[2017-01-04] MEDS: OXYMETAZOLINE HCL 0.05% NA SPR 15 ML BTL SCH (09:54)
[2017-01-04] MEDS: HYDROCORTISONE HC 2.5% CRM 30GM TUBE EXT SCH (09:54)
[2017-01-04] MEDS: DILTIAZEM HCL 120 MG ER CAP PO SCH (09:55)
[2017-01-04] MEDS: MAGNESIUM OXIDE 400 MG TAB PO SCH (09:55)
[2017-01-04] MEDS: FERROUS SULFATE 325 MG TAB PO SCH (09:55)
[2017-01-04] MEDS: MAGNESIUM SULFATE 1GM / D5W 1 GM in PREMIXED IN D5W 100 ML IV SCH ×2 (09:56→11:43)
[2017-01-04] MEDS: LISINOPRIL 2.5 MG TAB PO SCH (09:56)
[2017-01-04] MEDS: INSULIN ASPART 100 UNITS/ML 3 ML PEN SC SCH ×2 (09:59→12:43)
[2017-01-04] MEDS: MIRABEGRON ER 25 MG TAB PO SCH (10:04)
[2017-01-04] MEDS: PAROXETINE 20 MG TAB PO SCH (10:04)
[2017-01-04 11:09] VITALS: BP 152/78; PULSE 96; TEMP 36.6; O2SAT 96
== END 2017-01-04 13:50 | disposition home health service (06) | DRG 683 ==
LOC: ENRESERVDT → ENRESERVTM → C.EDB 16:00 → C.EDINP 19:32 → UNDODISIN 12-27 11:09 → C.2E 12-27 11:27 → C.MS2W 01-03 15:00
PROVIDERS: ADMIT Internal Medicine; ATTEND Internal Medicine
PROC: 0DJ08ZZ Inspection of Upper Intestinal Tract, Via Natural or Artificial Opening Endoscopic (ICD-10-PCS; principal; 2017-01-01 10:08)
PROC: 0DBN8ZZ Excision of Sigmoid Colon, Via Natural or Artificial Opening Endoscopic (ICD-10-PCS; 2017-01-01 10:08)
PROC: 0DBL8ZZ Excision of Transverse Colon, Via Natural or Artificial Opening Endoscopic (ICD-10-PCS; 2017-01-01 10:08)
DX: N17.0 Acute kidney failure with tubular necrosis (principal); D62 Acute posthemorrhagic anemia; N39.0 Urinary tract infection, site not specified; I10 Essential (primary) hypertension; N40.0 Benign prostatic hyperplasia without lower urinary tract symptoms; G47.33 Obstructive sleep apnea (adult) (pediatric); E78.5 Hyperlipidemia, unspecified; E11.9 Type 2 diabetes mellitus without complications; I48.0 Paroxysmal atrial fibrillation; Z90.49 Acquired absence of other specified parts of digestive tract; Z96.652 Presence of left artificial knee joint; Z95.2 Presence of prosthetic heart valve; Z80.9 Family history of malignant neoplasm, unspecified; Z83.3 Family history of diabetes mellitus; Z82.49 Family history of ischemic heart disease and other diseases of the circulatory system; Z87.891 Personal history of nicotine dependence; Z79.899 Other long term (current) drug therapy; Z79.4 Long term (current) use of insulin; R04.0 Epistaxis; G25.81 Restless legs syndrome; K21.0 Gastro-esophageal reflux disease with esophagitis; K64.8 Other hemorrhoids; K64.4 Residual hemorrhoidal skin tags; E83.42 Hypomagnesemia; B96.20 Unspecified Escherichia coli [E. coli] as the cause of diseases classified elsewhere; K57.30 Diverticulosis of large intestine without perforation or abscess without bleeding; D72.829 Elevated white blood cell count, unspecified; D12.3 Benign neoplasm of transverse colon; Z79.01 Long term (current) use of anticoagulants; D12.5 Benign neoplasm of sigmoid colon

== ENCOUNTER → 2017-02-08 | Outpatient (CLI) | payer OTHER ==
[~2017-02-08] MED LIST changes: +ANSHCCR EXT; -CLC100 PO; -CMD75 PO; -FERR1TAB23 PO; +FERR50TA3 PO; -FLUO0.05 TOP; +MGNO400 PO; -MORP15TA19 PO; -NVLGI SC; +NVLGI/PEN SQ; -OXYC-57 PO; -PRLSR20 PO; -THIA100T11 PO; +WARF5TAB7 PO; +[UNRECOGNIZED DRUG - CODE] PO
== END | disposition home or self-care (01) ==
LOC: C.LABSPEC 17:13
PROVIDERS: ATTEND Nurse Practitioner Family
DX: R39.15 Urgency of urination (principal)

== ENCOUNTER 2020-04-17 12:27 | Observation (INO) ==
--- NOTE | 2020-04-17 13:13 | Emergency Department Note ---
Impression & Plan Metabolic acidosis, NAG, bicarbonate losses, Demand ischemia, Dehydration, Diarrhea, Shortness of breath ED Provider Note NAME: DORI STOREY AGE: 79 SEX: M : 1940 ARRIVES VIA: Walk-In INFORMANT: Patient, ED PROVIDER(S): Donovan Amaro MD Chief Complaint: Shortness of breath, cough, diarrheal symptom HPI: Patient is presents with the above complaints. Patient states he has had them for approximately 3 to 4 days. Patient states that his diarrhea symptoms he notices that he has 3-4 bowel movements scantly tinged with blood and the patient does have a history of hemorrhoids and is on Coumadin. The patient states that he has no recent change in diet or medications. Patient states that he does have a fair amount of belching whenever he has a bowel movement as well as a lot of flatulence. Patient does complain of some mild crampy abdominal discomfort. The patient did try some Imodium with some very mild relief. Patient also does relate that he struck his head last Sunday with maybe a second of LOC. The patient states that it did not hurt and he recovered without incident. Patient also does relate that he has an irritated scratchy throat which causes his cough. The patient believes that his cough is productive and yellow. Former smoker approximately 35 years ago. The patient states that he does have symptoms of dyspnea on exertion but denies any lower extremity swelling history of DVT or PE. The patient did have some family that presented from [facility] approximately 2 weeks ago but they did not have any symptoms and no current symptoms. The patient denies fevers or chills. Patient denies any orthopnea. ROS: See HPI for pertinent positives and negatives. A total of 10 systems were reviewed and otherwise negative. Past medical history: See below Surgical history: See below Social history: See below Physical Exam: GENERAL: Well appearing, well nourished, NAD, non-toxic. Wearing glasses and a mask. EYE EXAM: Normal conjunctiva. PERRL, no anisocoria and EOM's grossly intact w/o pain. NECK: Supple, no nuchal rigidity, no adenopathy, non-tender. No signs of meningismus. Non-stridulous. LUNGS: Clear to auscultation. Normal chest wall mechanics. No obvious wheezing or rhonchi noted. HEART: NSR, no MRG. ABDOMEN: Abdomen soft, non-tender, normo-active bowel sounds, no masses, no rebound or guarding. BACK: No CVA TTP. SKIN: No rashes and no bruising. UPPER EXTREMITIES: Upper extremities are grossly normal. LOWER EXTREMITIES: Grossly normal, no edema. Negative Homans sign NEURO EXAM: A&O x3, cranial nerves II-XII grossly intact, normal speech, moves all 4 extremities on command w/o issue. Differential diagnoses: Reactive airway disease, pneumonia, pneumothorax, COPD, CHF, infections, cardiac ischemia, pulmonary embolism, musculoskeletal, gastrointestinal, as well as other pathologies. Course: Patient was seen and evaluated the bedside. Full history physical exam was performed. EKG: Indication: Shortness of breath Sinus rhythm with first-degree AV block and PACs, ventricular rate of 97, borderline QRS and prolonged DE. Left axis deviation with T wave inversions in the high lateral leads, no obvious ST depressions or elevations at this time. T wave inversions may be new from comparison EKG August 26, 2018 but there is significant motion artifact. Imaging Studies: Radiology results as stated below per my review in the radiologist's interpretation: CT OF THE HEAD WITHOUT CONTRAST CLINICAL HISTORY: s/p fall on Sunday, on coumadin COMPARISON STUDY: Head CT May 07, 2016. CT DOSE: 722.72 mGycm TECHNIQUE: Helical axial images of the head were obtained without IV contrast. Automated exposure control was utilized for the study. A dose lowering technique was utilized adhering to the principles of ALARA. FINDINGS: No acute intracranial hemorrhage, midline shift or mass effect is present. The ventricular system is stable. The basilar cisterns are patent. No extra-axial collections are present. There are no findings to suggest acute dural sinus thrombosis or acute territorial infarct. No significant calvarial abnormalities are present. Visualized portions of the sinuses and mastoid air cells are clear. IMPRESSION: 1. No acute intracranial findings. 2. No calvarial fracture ACT 112: Negative or not required by law. Electronically signed by: Brandon Burnham M.D. 04/17/2020 1:56 PM Dictated: 04/17/20 1353 Transcribed: 04/17/20 1353 PA CHEST RADIOGRAPH AND UPRIGHT AND SUPINE AP RADIOGRAPHS OF THE ABDOMEN CLINICAL HISTORY: diarrhea symptoms + SOB COMPARISON STUDY: CT of the abdomen and pelvis June 20, 2011. Chest radiograph December 18, 2016. FINDINGS: Mild cardiomegaly is unchanged. There is no evidence for pulmonary edema. No consolidation is present. Median sternotomy wires are noted. Prosthetic cardiac valve is noted. There is no free air. There is mild gaseous distention of small and large bowel. Multiple air-fluid levels are noted on upright projection. IMPRESSION: 1. No free air. 2. Mild gaseous distention of small and large bowel. This may reflect an ileus. 3. No acute cardiopulmonary findings. ACT 112: Negative or not required by law. Electronically signed by: Brandon Burnham M.D. 04/17/2020 2:41 PM Dictated: 04/17/20 1438 Transcribed: 04/17/20 1438 Cardiac monitoring: An order was placed for continuous cardiac monitoring. The monitor shows a rate of 96 with sinus rhythm. MDM: Patient did present with concern for shortness of breath as well as diarrheal symptoms. The patient is on Coumadin. The patient does not appear in extremis. The patient discomfort is been dyspnea on exertion. Blood work was obtained along with EKG, troponin, chest x-ray abdominal x-ray as well as CT of his head given her recent fall with known Coumadin use. Patient states that he thinks this may be more related to his COPD and even though he does not have obvious wheezing. Patient does not have any stridor present. EKG does show T wave inversions in the high lateral leads. The patient does have a positive troponin. Patient is anticoagulated on Coumadin with an INR of 4. Patient has a normal white count. Hemoglobin of 11. Virtually unchanged from prior.VBG shows pH of 7 3 with PCO2 of 33. BUN to creatinine ratio is sli ghtly elevated. Calcium slightly low. Patient was ordered a small amount of IV fluid as the patient's BNP is not elevated lower extremities are not consistent with volume overload. Patient likely has a non-anion gap metabolic acidosis secondary to diarrhea. I did speak with Dr. Salcido given that the patient does not have ST changes and no chest pains will not further anticoagulate even with positive troponin but will continue to trend enzymes and reassess patient. I did speak the on-call hospitalist Dr. Palacios. Patient was admitted to [facility]. Past Med/Surg History Medical History Anemia Anxiety Aortic aneurysm HX OF- DOES NOT CURRENTLY HAVE PER PATIENT- per Dr. Salcido last office visit 08/18- see reports BPH (benign prostatic hyperplasia) (Chronic) Diabetes type 2, controlled (Chronic) Diabetic neuropathy Dyslipidemia (Chronic) NEEMSIO (iron deficiency anemia) (Chronic) Iliac artery aneurysm (Chronic) PER PT'S - DOES NOT HAVE THIS ANYMORE Kidney stones HX -YRS AGO JAMES on CPAP (Chronic) Paroxysmal atrial fibrillation (Chronic) FOLLOWS WITH DR. KYMBERLY GARCIA- NO CARDIOVERSION- JUST TX WITH MEDS Urinary incontinence ON MEDS Surgical History Aortic valve replaced 1988 REPLACED AT [place] History of appendectomy (Chronic) History of arthroscopy of both knees (Chronic) History of colonoscopy History of spinal surgery (Chronic) LUMBAR- UNSURE WHICH ONES History of total left knee replacement (Chronic) Hx of left cataract extraction Family History Mother Cervical cancer Father Myocardial infarction Social History Preferred Language: Frisian Communication Ability: Effective Equipment Operation Instructor Required: No Beliefs That Will Affect Care: None Current Living Situation: Spouse Feels Safe at Home: Yes Smoking Status: Former smoker Second Hand Exposure: No ; Hx Alcohol Use: Yes Alcohol type: beer Hx Substance Use: No Allergies Allergies Allergy/AdvReac Type Severity Reaction Status Date / Time No Known Allergies Allergy Verified 06/11/19 06:30 Home Meds Home Medications Medication Instructions Recorded Confirmed allopurinol [Zyloprim] 300 mg PO Q OTHER DAY 08/26/18 04/17/20 amoxicillin 2,000 mg PO UD 08/26/18 04/17/20 ascorbic acid (vitamin C) [Vitamin 500 mg PO Q OTHER DAY 08/26/18 04/17/20 C] atenolol 25 mg PO QAM 08/26/18 04/17/20 beta carotene 10,000 unit PO QAM 08/26/18 04/17/20 betamethasone dipropionate 1 applic TOPICAL BID PRN 08/26/18 04/17/20 cyanocobalamin (vitamin B-12) 100 mcg PO QAM 08/26/18 04/17/20 [Vitamin B-12] ferrous sulfate 325 mg PO BID 08/26/18 04/17/20 fluocinolone and shower cap 1 applic TOPICAL UD PRN 08/26/18 04/17/20 [[place]-Smoothe/FS Scalp Oil] folic acid 1 mg PO QAM 08/26/18 04/17/20 insulin aspart U-100 [Novolog 0 unit SUBCUT TIDM 08/26/18 06/11/19 Flexpen U-100 Insulin] lisinopril 2.5 mg PO QPM 08/26/18 04/17/20 multivitamin 1 tab PO Q OTHER DAY 08/26/18 04/17/20 omega 1-hpw-tcs-fish oil [Fish Oil] 1 cap PO Q OTHER DAY 08/26/18 04/17/20 paroxetine HCl [Paxil] 20 mg PO QAM 08/26/18 04/17/20 rosuvastatin [Crestor] 10 mg PO QPM 08/26/18 04/17/20 thiamine HCl (vitamin B1) [Vitamin 100 mg PO QPM 08/26/18 04/17/20 B-1] warfarin [Jantoven] 10 mg PO MOFR@16 08/26/18 04/17/20 Tresiba FlexTouch U-100 60 unit SUBCUT BID 04/29/19 04/17/20 trospium 60 mg PO QAM 06/06/19 04/17/20 dulaglutide [Trulicity] 1.5 mg SUBCUT MO 04/17/20 04/17/20 ergocalciferol (vitamin D2) 1,250 mcg PO DAILY 04/17/20 04/17/20 [Vitamin D2] lactobacillus combination no.4 3,000 mmu cells PO DAILY 04/17/20 04/17/20 [Probiotic] lorazepam [Ativan] 1 mg PO TID PRN 04/17/20 04/17/20 tamsulosin [Flomax] 0.4 mg PO HS 04/17/20 04/17/20 warfarin 5 mg PO SUTUWETHSA@16 04/17/20 04/17/20 Results & Data (ED) Vital Signs Vital Signs - 24 hr 04/17/20 12:40 04/17/20 12:45 04/17/20 13:00 Temperature 36.7 C Temperature Source Oral Pulse Rate 95 H 94 H Pulse Rate from SpO2 Sensor 95 H Pulse Rhythm Regular Respiratory Rate 20 14 Respiratory Effort / Characteristics Non-Labored Spontaneous Respiratory Depth Normal Respiratory Pattern Regular Blood Pressure 142/77 H 106/57 L Blood Pressure Mean 98 59 Blood Pressure Position Sitting Pulse Oximetry 96 96 Oxygen Delivery Method Room Air Room Air Sepsis Recent Fever Within 48 Hours No Sepsis New/Unexplained Change in Mental Status N/A Sepsis Action Taken by Nursing No Action Required 04/17/20 13:11 04/17/20 13:30 04/17/20 13:31 Temperature Temperature Source Pulse Rate 96 H 93 H 96 H Pulse Rate from SpO2 Sensor 95 H 93 H 94 H Pulse Rhythm Respiratory Rate 18 16 15 Respiratory Effort / Characteristics Respiratory Depth Respiratory Pattern Blood Pressure 106/65 Blood Pressure Mean 81 Blood Pressure Position Pulse Oximetry 95 94 94 Oxygen Delivery Method Sepsis Recent Fever Within 48 Hours Sepsis New/Unexplained Change in Mental Status Sepsis Action Taken by Nursing 04/17/20 15:29 04/17/20 15:30 04/17/20 15:32 Temperature Temperature Source Pulse Rate 99 H 95 H 91 H Pulse Rate from SpO2 Sensor 96 H 91 H Pulse Rhythm Respiratory Rate 18 15 22 Respiratory Effort / Characteristics Respiratory Depth Respiratory Pattern Blood Pressure 122/80 Blood Pressure Mean 97 Blood Pressure Position Pulse Oximetry 95 98 Oxygen Delivery Method Sepsis Recent Fever Within 48 Hours Sepsis New/Unexplained Change in Mental Status Sepsis Action Taken by Detention Medications Current Medication List: was personally reviewed by me Laboratory Data Attestation: I reviewed the patient's lab results. Result diagrams: 04/17/20 13:08 04/17/20 13:08 Lab Results 04/17/20 04/17/20 04/17/20 Range/Units 13:08 13:08 13:08 WBC 9.61 (4.8-10.8) K/uL RBC 3.44 L (4.7-6.1) M/uL Hgb 11.1 L (14.0-18.0) g/dL Hct 34.0 L (42-52) % MCV 98.8 (80-100) fL MCH 32.3 (25-34) pg MCHC 32.6 (32-36) g/dL RDW Std Deviation 54.2 H (36.4-46.3) fL RDW Coeff of Chadd 15.0 H (11.5-14.5) % Plt Count 164 (130-400) K/uL MPV 10.3 (7.4-10.4) fL Immature Gran % (Auto) 0.6 % Neut % (Auto) 66.4 % Lymph % (Auto) 12.2 % [place] % (Auto) 10.6 % Eos % (Auto) 9.9 % Baso % (Auto) 0.3 % Neut # (Auto) 6.38 (1.4-6.5) K/uL Lymph # (Auto) 1.17 L (1.2-3.4) K/uL [place] # (Auto) 1.02 H (0.11-0.59) K/uL Eos # (Auto) 0.95 H (0-0.5) K/uL Baso # (Auto) 0.03 (0-0.2) K/uL Immature Gran # (Auto) 0.06 H (0.00-0.02) K/uL PT 39.2 H (9.0-12.0) Seconds INR 4.0 H (0.9-1.1) APTT 45.0 H (21.0-31.0) Seconds PTT Ratio 1.6 VBG pH (7.36-7.41) VBG pCO2 (38-50) mmHg VBG pO2 mmHg VBG HCO3 mmol/L VBG O2 Saturation % VBG Base Excess mEq/L Barometric Pressure mm/Hg Sodium 142 (136-145) mmol/L Potassium 4.3 (3.5-5.1) mmol/L Chloride 118 H (98-107) mmol/L Carbon Dioxide 16 L (21-32) mmol/L Anion Gap 8.0 (3-11) BUN 34 H (7-18) mg/dl Creatinine 1.40 (0.6-1.4) mg/dl Est Cr Clr Drug Dosing 55.9 ml/min Est GFR ( Amer) 55.4 Est GFR (Non-Af Amer) 47.8 BUN/Creatinine Ratio 24.5 H (10-20) Glucose 148 H (70-99) mg/dl Calcium 7.9 L (8.5-10.1) mg/dl Magnesium 2.2 (1.8-2.4) mg/dl Total Bilirubin 0.2 (0.2-1) mg/dl AST 34 (15-37) U/L ALT 32 (12-78) U/L Alkaline Phosphatase 52 (45-117) U/L Troponin I 0.290 H* (0-0.045) ng/ml NT-Pro-B Natriuret Pep 308 (0-1800) pg/ml Total Protein 8.0 (6.4-8.2) gm/dl Albumin 3.3 L (3.4-5.0) gm/dl Globulin 4.7 H (2.5-4.0) gm/dl Albumin/Globulin Ratio 0.7 L (0.9-2) /18/20 Range/Units 13:39 WBC (4.8-10.8) K/uL RBC (4.7-6.1) M/uL Hgb (14.0-18.0) g/dL Hct (42-52) % MCV (80-100) fL MCH (25-34) pg MCHC (32-36) g/dL RDW Std Deviation (36.4-46.3) fL RDW Coeff of Chadd (11.5-14.5) % Plt Count (130-400) K/uL MPV (7.4-10.4) fL Immature Gran % (Auto) % Neut % (Auto) % Lymph % (Auto) % [place] % (Auto) % Eos % (Auto) % Baso % (Auto) % Neut # (Auto) (1.4-6.5) K/uL Lymph # (Auto) (1.2-3.4) K/uL [place] # (Auto) (0.11-0.59) K/uL Eos # (Auto) (0-0.5) K/uL Baso # (Auto) (0-0.2) K/uL Immature Gran # (Auto) (0.00-0.02) K/uL PT (9.0-12.0) Seconds INR (0.9-1.1) APTT (21.0-31.0) Seconds PTT Ratio VBG pH 7.31 L (7.36-7.41) VBG pCO2 33 L (38-50) mmHg VBG pO2 58 mmHg VBG HCO3 16 mmol/L VBG O2 Saturation 87.2 % VBG Base Excess -9.0 mEq/L Barometric Pressure 734.3 mm/Hg Sodium (136-145) mmol/L Potassium (3.5-5.1) mmol/L Chloride (98-107) mmol/L Carbon Dioxide (21-32) mmol/L Anion Gap (3-11) BUN (7-18) mg/dl Creatinine (0.6-1.4) mg/dl Est Cr Clr Drug Dosing ml/min Est GFR ( Amer) Est GFR (Non-Af Amer) BUN/Creatinine Ratio (10-20) Glucose (70-99) mg/dl Calcium (8.5-10.1) mg/dl Magnesium (1.8-2.4) mg/dl Total Bilirubin (0.2-1) mg/dl AST (15-37) U/L ALT (12-78) U/L Alkaline Phosphatase (45-117) U/L Troponin I (0-0.045) ng/ml NT-Pro-B Natriuret Pep (0-1800) pg/ml Total Protein (6.4-8.2) gm/dl Albumin (3.4-5.0) gm/dl Globulin (2.5-4.0) gm/dl Albumin/Globulin Ratio (0.9-2) Administered Medications Discontinued Medications Albuterol (Duoneb) 3 ml INH NOW STA Stop: 04/17/20 13:24 Last Admin: 04/17/20 14:47 Dose: 3 ml Documented by: [id number] Sodium Chloride (Nss 1000ml) 500 mls @ 999 mls/hr IV .Q31M ONE Stop: 04/17/20 14:39 Last Admin: 04/17/20 14:45 Dose: 999 mls/hr Documented by: [id number] Calcium Gluconate 1,000 mg/ (Sodium Chloride) 60 mls @ 240 mls/hr IV NOW STA Stop: 04/17/20 14:23 Last Admin: 04/17/20 14:44 Dose: 240 mls/hr Documented by: [id number] Menthol (Nice) 1 yessi BUCCAL NOW STA Stop: 04/17/20 13:26 Last Admin: 04/17/20 14:44 Dose: 1 yessi Documented by: [id number] Methylprednisolone (Solumedrol) 60 mg IV NOW STA Stop: 04/17/20 13:24 Last Admin: 04/17/20 14:44 Dose: 60 mg Documented by: [id number] Discharge Plan Visit Data Chief Complaint: Diarrhea Stated Complaint: SOB ED Provider: Donovan Amaro Discharge Problem: Metabolic acidosis, NAG, bicarbonate losses, Demand ischemia, Dehydration, Diarrhea, Shortness of breath Forms Stand Alone Forms: [facility] Prescriptions Prescriptions: No Action Tresiba FlexTouch U-100 100 unit/mL (3 mL) Insulin Pen 60 unit SUBCUT BID RF: 0 trospium 60 mg Capsule,Extended Release 24hr 60 mg PO QAM RF: 0 warfarin 5 mg tablet 5 mg PO SUTUWETHSA@16 RF: 0 Probiotic 3 billion cell Capsule 3,000 mmu cells PO DAILY RF: 0 Trulicity 1.5 mg/0.5 mL pen injector 1.5 mg SUBCUT MO RF: 0 ergocalciferol (vitamin D2) [Vitamin D2] 1,250 mcg (50,000 unit) Capsule 1,250 mcg PO DAILY RF: 0 tamsulosin [Flomax] 0.4 mg Capsule 0.4 mg PO HS RF: 0 lorazepam [Ativan] 1 mg Tablet 1 mg PO TID PRN (Reason: Anxiety) RF: 0 multivitamin Tablet 1 tab PO Q OTHER DAY RF: 0 amoxicillin 500 mg capsule 2,000 mg PO UD RF: 0 cyanocobalamin (vitamin B-12) [Vitamin B-12] 100 mcg Tablet 100 mcg PO QAM RF: 0 atenolol 25 mg tablet 25 mg PO QAM RF: 0 thiamine HCl (vitamin B1) [Vitamin B-1] 100 mg Tablet 100 mg PO QPM RF: 0 ascorbic acid (vitamin C) [Vitamin C] 500 mg Tablet 500 mg PO Q OTHER DAY RF: 0 paroxetine HCl [Paxil] 20 mg tablet 20 mg PO QAM RF: 0 ferrous sulfate 325 mg (65 mg iron) Tablet 325 mg PO BID RF: 0 warfarin [Jantoven] 5 mg tablet 10 mg PO MOFR@16 RF: 0 beta carotene 10,000 unit Capsule 10,000 unit PO QAM RF: 0 betamethasone dipropionate 0.05 % cream 1 applic Topical BID PRN (Reason: FLARE UPS) RF: 0 folic acid 1 mg tablet 1 mg PO QAM RF: 0 allopurinol [Zyloprim] 300 mg tablet 300 mg PO Q OTHER DAY RF: 0 lisinopril 2.5 mg tablet 2.5 mg PO QPM RF: 0 insulin aspart U-100 [Novolog Flexpen U-100 Insulin] 100 unit/mL insulin pen 0 unit subcut TIDM RF: 0 rosuvastatin [Crestor] 10 mg Tablet 10 mg PO QPM RF: 0 fluocinolone and shower cap [[place]-Smoothe/FS Scalp Oil] 0.01 % oil 1 applic Topical UD PRN (Reason: Rash) RF: 0 omega [id number]-fish oil [Fish Oil] 1,000 mg (120 mg-180 mg) Capsule 1 cap PO Q OTHER DAY RF: 0 Discharge Problem: Diarrhea Qualifiers: Diarrhea type: unspecified type Qualified Code(s): R19.7 - Diarrhea, unspecified
[2020-04-17] MEDS ORDERED: ALBUT/IPRATROP 3MG/0.5MG NEB 3 ML VIAL INH STA (13:23)
[2020-04-17] MEDS ORDERED: methylPREDNISolone 125 MG/2 ML VIAL IV STA (13:23)
[2020-04-17] MEDS ORDERED: COUGH DROP (SUGAR FREE) LOZ 24 LOZ/1 BOX BUCCAL STA (13:25)
[2020-04-17 13:34] LABS: Basophils # (auto) 0.03 K/uL (0-0.2); Basophils % (auto) 0.3 %; Eosinophils # (auto) 0.95 K/uL (0-0.5); Eosinophils % (auto) 9.9 %; Hemoglobin 11.1 g/dL (14.0-18.0); Immature Granulocytes # (auto) 0.06 K/uL (0.00-0.02); Immature Granulocytes % (auto) 0.6 %; Lymphocytes # (auto) 1.17 K/uL (1.2-3.4); Lymphocytes % (auto) 12.2 %; Mean Corpuscular Hemoglobin 32.3 pg (25-34); Mean Corpuscular Hgb Conc 32.6 g/dL (32-36); Mean Corpuscular Volume 98.8 fL (80-100); Mean Platelet Volume 10.3 fL (7.4-10.4); Monocytes # (auto) 1.02 K/uL (0.11-0.59); Monocytes % (auto) 10.6 %; Neutrophils # (auto) 6.38 K/uL (1.4-6.5); Neutrophils % (auto) 66.4 %; Platelet Count 164 K/uL (130-400); RDW Standard Deviation 54.2 fL (36.4-46.3); Red Blood Count 3.44 M/uL (4.7-6.1); White Blood Count 9.61 K/uL (4.8-10.8)
[2020-04-17 13:42] LABS: Albumin Level 3.3 gm/dl (3.4-5.0); BUN Creatinine Ratio 24.5 (10-20); Calcium 7.9 mg/dl (8.5-10.1); Creatinine Clr Calc Pharmacy 55.9 ml/min; Est GFR (African American) 55.4; Est GFR (Non-African American) 47.8; Magnesium 2.2 mg/dl (1.8-2.4); Potassium 4.3 mmol/L (3.5-5.1)
[2020-04-17 13:50] LABS: Oxygen Saturation VBG 87.2 %; pH VBG 7.31 (7.36-7.41)
[2020-04-17 13:55] LABS: Partial Thromboplastin Ratio 1.6; Prothrombin Time 39.2 Seconds (9.0-12.0)
[2020-04-17 13:57] LABS: Albumin Globulin Ratio 0.7 (0.9-2); Bilirubin,Total 0.2 mg/dl (0.2-1); Globulin 4.7 gm/dl (2.5-4.0); Troponin I 0.29 ng/ml (0-0.045)
--- NOTE | 2020-04-17 13:57 | CT Scan Report ---
CT OF THE HEAD WITHOUT CONTRAST CLINICAL HISTORY: s/p fall on Sunday, on coumadin COMPARISON STUDY: Head CT May 07, 2016. CT DOSE: 722.72 mGycm TECHNIQUE: Helical axial images of the head were obtained without IV contrast. Automated exposure con trol was utilized for the study. A dose lowering technique was utilized adhering to the principles o f ALARA. FINDINGS: No acute intracranial hemorrhage, midline shift or mass effect is present. The ventricular system is stable. The basilar cisterns are patent. No extra-axial collections are present. There are no findings to suggest acute dural sinus thrombosis or acute territorial infarct. No significant calv arial abnormalities are present. Visualized portions of the sinuses and mastoid air cells are clear. IMPRESSION: 1. No acute intracranial findings. 2. No calvarial fracture ACT 112: Negative or not required by law. Electronically signed by: Brandon Burnham M.D. 04/17/2020 1:56 PM
[2020-04-17] MEDS ORDERED: SODIUM CHLORIDE 0.9% 1000ML 500 ML IV ONE (14:09)
[2020-04-17] MEDS ORDERED: CALCIUM GLUCONATE 10% 1,000 MG in SODIUM CHLORIDE 0.9% 50 ML IV STA (14:09)
--- NOTE | 2020-04-17 14:29 | History & Physical Report ---
Date of Service April 17, 2020 Assessment & Plan (1) Metabolic acidosis, NAG, bicarbonate losses: Nausea, abdominal pain, diarrhea Likely acute gastroenteritis Dehydration ABD X ray: No free air. Mild gaseous distention of small and large bowel. This may reflect an ileus. COVID screen: Negative Consider CT imaging if needed Ordered stool studies We will treat conservatively with IV fluids, antiemetics Consider antibiotics if needed Non-anion gap metabolic acidosis Likely secondary to GI losses IV fluids with bicarbonate Monitor BMP Consider nephrology evaluation if needed Mild troponin elevation Likely type II NM--demand ischemia Trend cardiac enzymes Repeat EKG in the morning Check resting echo HTN Blood pressure relatively low Hold lisinopril for now Monitor BP Acuye on Chronic Bronchitis CXR:No acute cardiopulmonary findings. COVID negative Continue nebs as needed No wheezing on examination Start on Doxycycline JAMES Continue CPAP at bedtime S/P AVR Supratherapeutic INR INR: 4.0 No significant bleeding issues Hold coumadin today resume coumadin as soon as possible Ambulatory dysfunction History of recent fall CT head:. No acute intracranial findings. No calvarial fracture Fall precautions PT/OT DM II Last HbA1C:6.9 on 03/31/20 Continue Insulin therapy Monitor BGs Paroxysmal atrial fibrillation On Coumadin for anticoagulation Continue Atenolol BPH Continue home meds DVT Px: SCDs Resume coumadin as able Disposition PT/OT prior to discharge History of Present Illness Chief Complaint: Diarrhea, Abdominal Pain Primary Care Provider: Kobe Watkins DO Patient is a 79-year-old male with history of diabetes mellitus on Insulin therapy, iliac artery aneurysm, Paroxysmal atrial fibrillation, dyslipidemia, BPH, iron deficiency anemia, S/P aortic valve replacement, obstructive sleep apnea on CPAP, polyneuropathy and other medical problems presents with history of abdominal pain, diarrhea, nausea. Patient reports that abdominal pain is bandlike, upper abdomen, increases with movement and breathing,4/10 intensity, nonradiating associated with nausea but no vomiting. Denies any abdominal cramps. States having diarrhea which is profuse, associated with flatulence since 4 days duration. Had black-tinged stools intermittently, which he attributes to hemorrhoids. He tried Imodium which only temporarily helped. Denies any sick contact, recent travel. He admits to having fell 2 days ago when he tripped over and fell on his back hitting his head. He is unsteady with ambulation at baseline and uses a cane. Also states having dyspnea on exertion and chronic cough secondary to COPD with minimal intermittent yellowish expectoration since 2 weeks duration. Denies any history of chest pain, SOB at rest, palpitations, orthopnea, PND, dizziness, diaphoresis, wheezing, hemoptysis, fever, chills, LOC, headache, change in vision, vomiting, dysuria, hematuria, recent change in medications. Allergies Allergy/AdvReac Type Severity Reaction Status Date / Time No Known Allergies Allergy Verified 06/11/19 06:30 Home Medications Home Medications Medication Instructions Recorded Confirmed Type allopurinol [Zyloprim] 300 mg PO Q OTHER DAY 08/26/18 04/17/20 History amoxicillin 2,000 mg PO UD 08/26/18 04/17/20 History ascorbic acid (vitamin C) [Vitamin 500 mg PO Q OTHER DAY 08/26/18 04/17/20 History C] atenolol 25 mg PO QAM 08/26/18 04/17/20 History beta carotene 10,000 unit PO QAM 08/26/18 04/17/20 History betamethasone dipropionate 1 applic TOPICAL BID PRN 08/26/18 04/17/20 History cyanocobalamin (vitamin B-12) 100 mcg PO QAM 08/26/18 04/17/20 History [Vitamin B-12] ferrous sulfate 325 mg PO BID 08/26/18 04/17/20 History fluocinolone and shower cap 1 applic TOPICAL UD PRN 08/26/18 04/17/20 History [[place]-Smoothe/FS Scalp Oil] folic acid 1 mg PO QAM 08/26/18 04/17/20 History insulin aspart U-100 [Novolog 0 unit SUBCUT TIDM 08/26/18 06/11/19 History Flexpen U-100 Insulin] lisinopril 2.5 mg PO QPM 08/26/18 04/17/20 History multivitamin 1 tab PO Q OTHER DAY 08/26/18 04/17/20 History omega 0-wzc-zch-fish oil [Fish Oil] 1 cap PO Q OTHER DAY 08/26/18 04/17/20 H istory paroxetine HCl [Paxil] 20 mg PO QAM 08/26/18 04/17/20 History rosuvastatin [Crestor] 10 mg PO QPM 08/26/18 04/17/20 History thiamine HCl (vitamin B1) [Vitamin 100 mg PO QPM 08/26/18 04/17/20 History B-1] warfarin [Jantoven] 10 mg PO MOFR@16 08/26/18 04/17/20 History Tresiba FlexTouch U-100 60 unit SUBCUT BID 04/29/19 04/17/20 History trospium 60 mg PO QAM 06/06/19 04/17/20 History dulaglutide [Trulicity] 1.5 mg SUBCUT MO 04/17/20 04/17/20 History ergocalciferol (vitamin D2) 1,250 mcg PO DAILY 04/17/20 04/17/20 History [Vitamin D2] lactobacillus combination no.4 3,000 mmu cells PO DAILY 04/17/20 04/17/20 History [Probiotic] lorazepam [Ativan] 1 mg PO TID PRN 04/17/20 04/17/20 History tamsulosin [Flomax] 0.4 mg PO HS 04/17/20 04/17/20 History warfarin 5 mg PO SUTUWETHSA@16 04/17/20 04/17/20 History Past Med/Surg History Medical History Anemia Anxiety Aortic aneurysm HX OF- DOES NOT CURRENTLY HAVE PER PATIENT- per Dr. Salcido last office visit 08/18- see reports BPH (benign prostatic hyperplasia) (Chronic) Diabetes type 2, controlled (Chronic) Diabetic neuropathy Dyslipidemia (Chronic) NEMESIO (iron deficiency anemia) (Chronic) Iliac artery aneurysm (Chronic) PER PT'S - DOES NOT HAVE THIS ANYMORE Kidney stones HX -YRS AGO JAMES on CPAP (Chronic) Paroxysmal atrial fibrillation (Chronic) FOLLOWS WITH DR. KYMBERLY GARCIA- NO CARDIOVERSION- JUST TX WITH MEDS Urinary incontinence ON MEDS Surgical History Aortic valve replaced 1987 REPLACED AT [place] [facility] History of appendectomy (Chronic) History of arthroscopy of both knees (Chronic) History of colonoscopy History of spinal surgery (Chronic) LUMBAR- UNSURE WHICH ONES History of total left knee replacement (Chronic) Hx of left cataract extraction Family History Mother Cervical cancer Father Myocardial infarction Social History Preferred Language: Hungarian Communication Ability: Effective Flash Developer Required: No Beliefs That Will Affect Care: None Current Living Situation: Spouse Feels Safe at Home: Yes Smoking Status: Former smoker Second Hand Exposure: No ; Hx Alcohol Use: Yes Alcohol type: beer Hx Substance Use: No Review of Systems Review of Systems: All systems reviewed & are unremarkable except as noted in HPI & below Physical Exam Physical Exam: Physical Exam: Vitals signs as noted above General Appearance:Obese, no apparent distress Head: normocephalic, Atraumatic Eyes: normal inspection, EOMI Neck: supple, Trachea midline Respiratory/Chest: Decreased breath sounds, CTA, No accessory muscle use Cardiovascular: S1, S2, + metallic click, no murmur Abdomen/GI:Soft, Non tender, Bowel sounds present Extremities/Musculoskelatal:normal inspection, Trace pedal edema, chronic venous stasis changes Neurologic/Psych:AAOX3, grossly no focal neurological deficits Skin: normal color, warm Results & Data Results & Data ([facility]) Vital Signs (Past 12 Hours) Vital Signs Temp Pulse Resp BP Pulse Ox 04/17/20 13:11 96 H 18 95 04/17/20 13:00 94 H 14 106/57 L 96 04/17/20 12:40 36.7 C 95 H 20 142/77 H 96 Laboratory Results Short CBC 04/17/20 Range/Units 13:08 WBC 9.61 (4.8-10.8) K/uL Hgb 11.1 L (14.0-18.0) g/dL Hct 34.0 L (42-52) % Plt Count 164 (130-400) K/uL BMP 04/17/20 13:08 Sodium 142 Potassium 4.3 Chloride 118 H Carbon Dioxide 16 L BUN 34 H Creatinine 1.40 Glucose 148 H Calcium 7.9 L Cardiac Enzymes 04/17/20 Range/Units 13:08 Troponin I 0.290 H* (0-0.045) ng/ml Liver Function 04/17/20 Range/Units 13:08 Total Bilirubin 0.2 (0.2-1) mg/dl AST 34 (15-37) U/L ALT 32 (12-78) U/L Alkaline Phosphatase 52 (45-117) U/L Albumin 3.3 L (3.4-5.0) gm/dl Diagnostic Findings ABD/CXR: No free air. Mild gaseous distention of small and large bowel. This may reflect an ileus. No acute cardiopulmonary findings. CT head: 1. No acute intracranial findings. 2. No calvarial fracture ECG Additional Comments: EKG: Sinus rhythm with first-degree AV block and PACs. QTC 469.
--- NOTE | 2020-04-17 14:42 | XRay Report ---
PA CHEST RADIOGRAPH AND UPRIGHT AND SUPINE AP RADIOGRAPHS OF THE ABDOMEN CLINICAL HISTORY: diarrhea symptoms + SOB COMPARISON STUDY: CT of the abdomen and pelvis June 20, 2011. Chest radiograph December 18, 2016. FINDINGS: Mild cardiomegaly is unchanged. There is no evidence for pulmonary edema. No consolidation is present. Median sternotomy wires are noted. Prosthetic cardiac valve is noted. There is no free a ir. There is mild gaseous distention of small and large bowel. Multiple air-fluid levels are noted on upright projection. IMPRESSION: 1. No free air. 2. Mild gaseous distention of small and large bowel. This may reflect an ileus. 3. No acute cardiopulmonary findings. ACT 112: Negative or not required by law. Electronically signed by: Brandon Burnham M.D. 04/17/2020 2:41 PM
[2020-04-17] MEDS ORDERED: GLUCOSE 10 TABS/TUBE PO PRN (19:35)
[2020-04-17] MEDS ORDERED: ALBUT/IPRATROP 3MG/0.5MG NEB 3 ML VIAL NEB PRN (19:35)
[2020-04-17] MEDS ORDERED: GLUCAGON FOR INJ 1 MG VIAL SQ PRN (19:35)
[2020-04-17] MEDS ORDERED: ACETAMINOPHEN 325 MG TAB PO PRN (19:35)
[2020-04-17] MEDS ORDERED: ONDANSETRON INJ 2 MG/ML 2 ML VIAL IV PRN (19:35)
[2020-04-17] MEDS ORDERED: DEXTROSE 50% 50 ML SYRINGE IV PRN (19:35)
[2020-04-17] MEDS ORDERED: CARBOHYDRATES FOR HYPOGLYCEMIA PO PRN (19:35)
[2020-04-17] MEDS ORDERED: STAT IV STA (19:35)
[2020-04-17] MEDS ORDERED: GLUCOSE 40% GEL 15 GM TUBE PO PRN (19:35)
[2020-04-17] MEDS ORDERED: LORazepam 1 MG TAB PO PRN (19:44)
[2020-04-17] MEDS ORDERED: PHARMACY GLYCEMIC MGMT CONSULT PRN (19:46)
--- NOTE | 2020-04-17 20:29 | Pharmacy Report ---
Glycemic Control Consultation - Date of Service April 17, 2020 - Scope Scope: Glycemic Pharmacist consulted for glycemic control and to write orders per [facility] inpatient glycemic control protocol. - Objective Weight: 120.4 kg Accuchecks BSG (last 24hrs): 04/17/20 04/17/20 13:08 19:51 Glucose 148 H POC Glucose 166 H Laboratory Data (last 24hrs): 04/17/20 13:08 Potassium 4.3 Carbon Dioxide 16 L Anion Gap 8.0 Creatinine 1.40 Est Cr Clr Drug Dosing 55.9 - Recent Pertinent Medications Outpatient Anti-diabetic Regimen: * Trulicity 1.5 mg SQ every Sunday, Tresiba 60 units SQ BID, Novolog 15-20 units depending on BSG * A1c = 6.9% on 03/31/2020 per H&P * Will order for AM Risk Factors for Insulin Resistance: * Steroids: * Methylprednisolone 60 mg IV x 1 @ 1400 * Infection: * Doxycycline 100 mg PO BID x pulm * IVF: * 75 mEq NaHCO3 in 1000 mL 0.45% NS * Diet: * T2DM - Assessment & Plan Assessment & Plan: ASSESSMENT: * 79 yo M admitted secondary to nausea, diarrhea, and abdominal pain. Found to have Non-Anion Gap Metabolic Acidosis with venous BG of 7.31. * According to H&P, most recent A1c was 6.9% on March 31, 2020. Will order A1c tomorrow AM for our records. * Admission BSG was 148 mg/dL upon admission and POC at 1900 was 166 mg/dL. Patient did receive a one-time dose of Solumedrol 60 mg in the ED. Steroids have their most profound effect on post-prandial BSGs and patient did eat dinner around 1999. * ADA & AACE recommend a goal blood sugar range 140-180 mg/dl for the majority of critically ill & non-critically ill patients. However, more stringent targets may be selected in individual cases. Will utilize more stringent goal of 110-140mg/dl based on patient age & comorbidities. * Patient has been giving himself half-doses of Tresiba at home secondary to nausea and diarrhea recently. Therefore, will plan to start patient on Lantus at approximately 50% of his home dose. * Plan to start high stress weight based Novolog especially considering the solumedrol dose. * Will add an overnight check to ensure no nocturnal hypo/hyperglycemia. PLAN FOR INPATIENT GLYCEMIC CONTROL: * Basal insulin * Lantus 30 units SQ BID * Bolus insulin * NovoLog per scale ACHS or Q6hrs while NPO * Goal Range: Low 110 mg/dL - High 140 mg/dL * Correction Factor: 15 mg/dL/unit * Nutritional / Prandial insulin per carb ratio of 1 unit per 5 grams CHO consumed * Please note that the plan above was derived based on current level of insulin resistance and hospital stress. These recommendations are appropriate for inpatient admission only. Plan of care upon discharge will need to be reassessed to avoid potential outpatient hypo/hyperglycemia. Thank you.
[2020-04-17] MEDS ORDERED: INSULIN GLARGINE SOLOSTAR 100 UNITS/ML 3 ML PEN SC SCH (21:00)
[2020-04-17] MEDS: INSULIN ASPART 100 UNITS/ML 3 ML PEN SC SCH (21:23)
[2020-04-17] MEDS: SODIUM BICARBONATE 8.4% 75 MEQ in SODIUM CHLORIDE 0.45 % 1,000 ML IV SCH (21:23)
[2020-04-17] MEDS: INSULIN GLARGINE SOLOSTAR 100 UNITS/ML 3 ML PEN SC SCH (21:24)
[2020-04-17] MEDS: TAMSULOSIN HCL 0.4 MG CAP PO SCH (21:25)
[2020-04-17] MEDS: LACTOBACILLUS ACIDOPHILUS (FLORANEX) TAB PO SCH (21:25)
[2020-04-17] MEDS: ROSUVASTATIN CALCIUM 10 MG TAB PO SCH (21:25)
[2020-04-17] MEDS: DOXYCYCLINE HYCLATE 100 MG CAP PO SCH (21:26)
[2020-04-18] MEDS ORDERED: INSULIN ASPART 100 UNITS/ML 3 ML PEN SC SCH (02:00)
--- NOTE | 2020-04-18 07:41 | Hospitalist Progress Note ---
Date of Service April 18, 2020 Assessment & Plan (1) Metabolic acidosis, NAG, bicarbonate losses: Nausea, abdominal pain, diarrhea Likely acute gastroenteritis Dehydration ABD X ray: No free air. Mild gaseous distention of small and large bowel. This may reflect an ileus. COVID screen: Negative Consider CT imaging if needed Ordered stool studies C.diff sample sent, however stool was solid and therefore the test was not performed. Patient reports liquid stool for past 4 days. Will recheck again. We will treat conservatively with IV fluids, antiemetics Consider antibiotics if needed Non-anion gap metabolic acidosis Likely secondary to GI losses IV fluids with bicarbonate Monitor BMP Nephrology consulted - cont IVF w/ bicarb and recheck BMP Mild troponin elevation Likely type II AK--demand ischemia Trend cardiac enzymes, troponin downtrended Repeat EKG in the morning resting echo obtained Anemia -Per patient, had colonoscopy about 5 years ago, multiple polyps were removed at that time, denies any history of cancers polyps -FOBT ordered -Recommend to follow-up with colonoscopy as outpatient at patient's earliest convenience HTN Blood pressure relatively low Hold lisinopril for now Monitor BP Acute on Chronic Bronchitis CXR:No acute cardiopulmonary findings. COVID negative Continue nebs as needed No wheezing on examination Start on Doxycycline JAMES Continue CPAP at bedtime S/P AVR, pAib, follows w/ Dr. Salcido Supratherapeutic INR INR: 4.0 No significant bleeding issues Hold coumadin today resume coumadin as soon as possible Ambulatory dysfunction History of recent fall CT head:. No acute intracranial findings. No calvarial fracture Fall precautions PT/OT DM II Last HbA1C:6.9 on 03/31/20 Continue Insulin therapy Monitor BGs Paroxysmal atrial fibrillation On Coumadin for anticoagulation Continue Atenolol BPH Continue home meds DVT Px: SCDs Resume coumadin as able Disposition PT/OT prior to discharge Admission and Anticipated Discharge Date Admission Date: April 17, 2020 Subjective Pt is currently sitting up in bed, in NAD. States he feels much better. Reports liquid diarrhea for 4 days. Stool was sent for c. diff but sample was solid, will try to re-check again. Hx of polyps, reports colonoscopy about 5 yrs ago, w/ multiple polyps, denies any hx of cancer. Discussed close follow up w/ PCP and GI. Will obtain FOBT. Non anion gap acidosis mildly improved from yesterday, continue bicarb, Nephrology following. Telemetry reviewed - sinus, 1st degree AV block, PACs, poss. episodes of Afib?/ wondering pacem - likely d/t acidosis, electrolyte imbalance. Follows w/ Dr. Salcido. Echo obtained. Review of Systems Review of Systems: All systems reviewed & are unremarkable except as noted in HPI & below Constitutional: no fever and no chills Respiratory: + cough (mild) and + dyspnea (mild) Cardiovascular: no chest pain and no palpitations Gastrointestinal: + diarrhea/loose stools; no abdominal pain, no nausea and no vomiting Physical Exam Physical Exam: General Appearance: Elderly obese male, in no apparent distress Head: normocephalic, Atraumatic Eyes: normal inspection, EOMI Neck: supple, Trachea midline Respiratory/Chest: Decreased breath sounds, CTA, No accessory muscle use Cardiovascular: irregular, S1, S2, + metallic click, no murmur Abdomen/GI:Soft, obese, Non tender, Bowel sounds present Extremities/Musculoskelatal:normal inspection, Trace pedal edema, chronic venous stasis changes Neurologic/Psych:AAOX3, speech fluent, no facial asymmetry, moves extremities spontaneously Skin: normal color, warm Results & Data Results & Data ([facility]) Vital Signs (Past 12 Hours) Vital Signs Temp Pulse Pulse Pulse Resp BP BP 04/18/20 07:22 36.7 C 92 H 18 153/74 H 04/18/20 07:09 91 H 04/18/20 04:08 36.6 C 97 H 18 122/64 04/18/20 00:37 98 H 04/17/20 22:14 36.3 C L 80 20 140/82 Pulse Ox 04/18/20 07:22 95 04/18/20 07:09 04/18/20 04:08 91 04/18/20 00:37 04/17/20 22:14 93
[2020-04-18 07:56] LABS: Basophils # (auto) 0.01 K/uL (0-0.2); Basophils % (auto) 0.1 %; Hematocrit (blood only) 30.8 % (42-52); Hemoglobin 10.4 g/dL (14.0-18.0); Immature Granulocytes # (auto) 0.06 K/uL (0.00-0.02); Immature Granulocytes % (auto) 0.6 %; Lymphocytes # (auto) 0.76 K/uL (1.2-3.4); Lymphocytes % (auto) 8.1 %; Mean Corpuscular Hemoglobin 32.7 pg (25-34); Mean Corpuscular Hgb Conc 33.8 g/dL (32-36); Mean Corpuscular Volume 96.9 fL (80-100); Mean Platelet Volume 10.1 fL (7.4-10.4); Monocytes % (auto) 4.3 %; Neutrophils # (auto) 8.17 K/uL (1.4-6.5); Neutrophils % (auto) 86.9 %; Platelet Count 153 K/uL (130-400); RDW Coefficient of Variation 14.8 % (11.5-14.5); RDW Standard Deviation 51.9 fL (36.4-46.3); Red Blood Count 3.18 M/uL (4.7-6.1)
--- NOTE | 2020-04-18 08:10 | Electrocardiogram Report ---
Test Reason : Blood Pressure : / mmHG Vent. Rate : 097 BPM Atrial Rate : 097 BPM P-R Int : 212 ms QRS Dur : 120 ms QT Int : 370 ms P-R-T Axes : 052 -49 084 degrees QTc Int : 469 ms Sinus rhythm with 1st degree A-V block with Premature atrial complexes Left axis deviation Left ventricular hypertrophy with repolarization abnormality Non-specific intra-ventricular conduction delay Abnormal ECG When compared with ECG of 26-AUG-2018 18:55, Premature atrial complexes are now Present Confirmed by Tej Zayas ([id number]) on 04/18/2020 8:10:34 AM Referred By: Kobe Watkins Confirmed By:Tej Zayas
[2020-04-18 08:18] LABS: INR 3.7 (0.9-1.1); Prothrombin Time 36.2 Seconds (9.0-12.0)
[2020-04-18 08:34] LABS: Albumin Globulin Ratio 0.7 (0.9-2); Albumin Level 3.1 gm/dl (3.4-5.0); BUN Creatinine Ratio 26.5 (10-20); Bilirubin,Total 0.4 mg/dl (0.2-1); Calcium 7.9 mg/dl (8.5-10.1); Creatinine Clr Calc Pharmacy 63.4 ml/min; Est GFR (African American) 64.8; Est GFR (Non-African American) 55.9; Globulin 4.2 gm/dl (2.5-4.0); Magnesium 2.2 mg/dl (1.8-2.4); Potassium 4.4 mmol/L (3.5-5.1); Total Protein 7.3 gm/dl (6.4-8.2)
--- NOTE | 2020-04-18 08:36 | Electrocardiogram Report ---
Test Reason : Blood Pressure : / mmHG Vent. Rate : 090 BPM Atrial Rate : 090 BPM P-R Int : 216 ms QRS Dur : 122 ms QT Int : 394 ms P-R-T Axes : -12 -46 065 degrees QTc Int : 481 ms Probable Atrial fibrillation Left anterior fascicular block Abnormal ECG When compared with ECG of 17-APR-2020 13:06, Nonspecific T wave abnormality has replaced inverted T waves in Lateral leads Confirmed by Tej Zayas ([id number]) on 04/18/2020 8:36:40 AM Referred By: Kobe Watkins Confirmed By:Tej Zayas
[2020-04-18] MEDS: INSULIN ASPART 100 UNITS/ML 3 ML PEN SC SCH ×5 (08:37→23:39)
[2020-04-18] MEDS: INSULIN GLARGINE SOLOSTAR 100 UNITS/ML 3 ML PEN SC SCH (08:38)
[2020-04-18] MEDS: LACTOBACILLUS ACIDOPHILUS (FLORANEX) TAB PO SCH ×4 (08:40→20:23)
[2020-04-18] MEDS: FOLIC ACID 1 MG TAB PO SCH (08:41)
[2020-04-18] MEDS: PARoxetine HCL 20 MG TAB PO SCH (08:41)
[2020-04-18] MEDS: DOXYCYCLINE HYCLATE 100 MG CAP PO SCH ×2 (08:42→20:24)
[2020-04-18] MEDS: ATENOLOL 25 MG TABLET PO SCH (08:42)
[2020-04-18] MEDS ORDERED: allopurinoL 300 MG TAB PO SCH (09:00)
--- NOTE | 2020-04-18 10:12 | Nephrology Consultation ---
Date of Consultation April 18, 2020 Assessment & Plan (1) Metabolic acidosis, NAG, bicarbonate losses: Likely from diarrhea and NS combined. On appropriate fluids. Not a chronic issue consistently though does occur periodically on OP labs >> not likely a genetic or renal tubular disorder therefore. Diarrhea for now at least resolved. -cont current IVF 1/2 NS with 75 mEq/L sodium bicarbonate same rate -repeat bmp in AM Present on Admission?: Yes History of Present Illness Reason for Consultation: metabolic acidosis Requesting Physician: Dr Marie Attending Physician: Rodeny Marie MD History of Present Illness 79 y/o M whom I'm asked to evaluate for nonanion gap metabolic acidosis after he was admitted last evening for profuse diarrhea and 4 days of abdominal pain and N. he also had a fall 2 days prior to admission, hitting his head; and concern for acute on chronic bronchitis. PMH includes DM on insulin, s/p AVR, pAF, JAMES on CPAP, chronic ambulatory dysfunction, CKD with labile renal function and baseline creatinine 1.1-1.4 (does not consistently meet CKD3 criteria by eGFR), prostatic hypertrophy, OA, class 2 obesity, gout. He does not have metabolic acidosis chronically > bicarb has been within normal limits as recently as March 31 this year. His presenting bicarb was 18 with creat 1.4 and Cl 118; this am has changed to 17 and 1.2 and 114 respectively. CXR and head CT both unremarkable; C diff negative. He was started on 1/2 NS with 75 mEq/L sodium bicarb at 80 mL hourly. also had 1 L NS in ER. No NSAIDS as OP. Allergies Allergy/AdvReac Type Severity Reaction Status Date / Time No Known Allergies Allergy Verified 06/11/19 06:30 Home Medications Home Medications Medication Instructions Recorded Confirmed Type allopurinol [Zyloprim] 300 mg PO Q OTHER DAY 08/26/18 04/17/20 History amoxicillin 2,000 mg PO UD 08/26/18 04/17/20 History ascorbic acid (vitamin C) [Vitamin 500 mg PO Q OTHER DAY 08/26/18 04/17/20 History C] atenolol 25 mg PO QAM 08/26/18 04/17/20 History beta carotene 10,000 unit PO QAM 08/26/18 04/17/20 History betamethasone dipropionate 1 applic TOPICAL BID PRN 08/26/18 04/17/20 History cyanocobalamin (vitamin B-12) 100 mcg PO QAM 08/26/18 04/17/20 History [Vitamin B-12] ferrous sulfate 325 mg PO BID 08/26/18 04/17/20 History fluocinolone and shower cap 1 applic TOPICAL UD PRN 08/26/18 04/17/20 History [[place]-Smoothe/FS Scalp Oil] folic acid 1 mg PO QAM 08/26/18 04/17/20 History insulin aspart U-100 [Novolog 0 unit SUBCUT TIDM 08/26/18 06/11/19 History Flexpen U-100 Insulin] lisinopril 2.5 mg PO QPM 08/26/18 04/17/20 History multivitamin 1 tab PO Q OTHER DAY 08/26/18 04/17/20 History omega 5-mae-upw-fish oil [Fish Oil] 1 cap PO Q OTHER DAY 08/26/18 04/17/20 History paroxetine HCl [Paxil] 20 mg PO QAM 08/26/18 04/17/20 History rosuvastatin [Crestor] 10 mg PO QPM 08/26/18 04/17/20 History thiamine HCl (vitamin B1) [Vitamin 100 mg PO QPM 08/26/18 04/17/20 History B-1] warfarin [Jantoven] 10 mg PO MOFR@16 08/26/18 04/17/20 History Tresiba FlexTouch U-100 60 unit SUBCUT BID 04/29/19 04/17/20 History trospium 60 mg PO QAM 06/06/19 04/17/20 History dulaglutide [Trulicity] 1.5 mg SUBCUT MO 04/17/20 04/17/20 History ergocalciferol (vitamin D2) 1,250 mcg PO DAILY 04/17/20 04/17/20 History [Vitamin D2] lactobacillus combination no.4 3,000 mmu cells PO DAILY 04/17/20 04/17/20 History [Probiotic] lorazepam [Ativan] 1 mg PO TID PRN 04/17/20 04/17/20 History tamsulosin [Flomax] 0.4 mg PO HS 04/17/20 04/17/20 History warfarin 5 mg PO SUTUWETHSA@16 04/17/20 04/17/20 History Patient History Medical History Anemia Anxiety Aortic aneurysm HX OF- DOES NOT CURRENTLY HAVE PER PATIENT- per Dr. Salcido last office visit 08/18- see reports BPH (benign prostatic hyperplasia) (Chronic) Diabetes type 2, controlled (Chronic) Diabetic neuropathy Dyslipidemia (Chronic) NEMESIO (iron deficiency anemia) (Chronic) Iliac artery aneurysm (Chronic) PER PT'S - DOES NOT HAVE THIS ANYMORE Kidney stones HX -YRS AGO JAMES on CPAP (Chronic) Paroxysmal atrial fibrillation (Chronic) FOLLOWS WITH DR. KYMBERLY GARCIA- NO CARDIOVERSION- JUST TX WITH MEDS Urinary incontinence ON MEDS Surgical History Aortic valve replaced 1988 REPLACED AT [facility] History of appendectomy (Chronic) History of arthroscopy of both knees (Chronic) History of colonoscopy History of spinal surgery (Chronic) LUMBAR- UNSURE WHICH ONES History of total left knee replacement (Chronic) Hx of left cataract extraction Family History Mother Cervical cancer Father Myocardial infarction Social History Preferred Language: Sami Communication Ability: Effective Plate Corrector Required: No Beliefs That Will Affect Care: None marital status: Current Living Situation: Spouse Other Information That Helps Us Care for You: No Feels Safe at Home: Yes Safety Concerns: Feels Safe At This Time Smoking Status: Former smoker Second Hand Exposure: No ; Hx Alcohol Use: Yes Alcohol type: beer Hx Substance Use: No Review of Systems Review of Systems: All systems reviewed & are unremarkable except as noted in HPI & below Gastrointestinal: + belching and + diarrhea/loose stools (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 explosive/loose bm yesterday 1400) Physical Exam Constitutional: well developed and + obese; no acute distress sitting on side of bed on RA Eyes: EOM intact bilaterally ENMT: Ears: no external ear abnormality Nose: no external nose abnormality Mouth: + dry oral mucous membranes Neck: no nuchal rigidity Respiratory: normal respiratory effort Auscultation: + diminished lung sounds (minimal air mvt BL) Cardiovascular: Rate/Rhythm: regular rate and regular rhythm Heart Sounds: + click (from mech valve) and + murmur Extremities: + edema (trace indurated) Gastrointestinal (Abdomen): Inspection/Auscultation: normal bowel sounds Percussion/Palpation: abdomen soft; abdomen nontender Musculoskeletal: Extremities: strength 5/5 throughout Skin: no rashes, warm and dry Neurologic: mckeon, fluent speech, no tremor Psychiatric: A+Ox3, euthymic affect Insight: good insight Judgement: good judgement Genitourinary: no lynn Results & Data Vital Signs (Past 12 Hours) Vital Signs Temp Pulse Pulse Pulse Resp BP BP 04/18/20 07:22 36.7 C 92 H 18 153/74 H 04/18/20 07:09 91 H 04/18/20 04:08 36.6 C 97 H 18 122/64 04/18/20 00:37 98 H 04/17/20 22:14 36.3 C L 80 20 140/82 Pulse Ox 04/18/20 07:22 95 04/18/20 07:09 04/18/20 04:08 91 04/18/20 00:37 04/17/20 22:14 93 Laboratory Results 04/18/20 07:36 04/18/20 07:36 Diagnostic Findings Kub/cxr 1. No free air. 2. Mild gaseous distention of small and large bowel. This may reflect an ileus 3. No acute cardiopulmonary findings Head CT 1. No acute intracranial findings. 2. No calvarial fracture
--- NOTE | 2020-04-18 10:42 | Pharmacy Report ---
Pharmacy Glycemic Short Note 2 - Date of Service April 18, 2020 - Glycemic Short BSG Results (Last 24 hours): 04/17/20 04/17/20 04/18/20 13:08 19:51 01:31 Glucose 148 H POC Glucose 166 H 227 H 04/18/20 04/18/20 07:34 07:36 Glucose 164 H POC Glucose 172 H ASSESSMENT: 04/18 * Patient received total of 66 units of insulin yesterday, of which 60 were basal (half of home dose) * Fasting BSG 164 mg/dL - continue with Lantus 30 units this AM, will add scale for HS * Lunch BSG trending up / plan to tighten CF/CR PLAN FOR INPATIENT GLYCEMIC CONTROL: * Basal insulin * Lantus 30 qam, then 30-50 units BID based upon bsg * Bolus insulin * NovoLog per scale ACHS or Q6hrs while NPO * Goal Range: Low 110 mg/dL - High 140 mg/dL * Correction Factor: 12 mg/dL/unit * Nutritional / Prandial insulin per carb ratio of 1 unit per 4 grams CHO consumed PLAN FOR DISCHARGE: * A1C 6.9% - goal <7% * Reasonable to continue home diabetic medications at discharge, as long as patient is not reporting frequent hypoglycemia
[2020-04-18] MEDS ORDERED: SODIUM BICARBONATE IV SCH (11:26)
[2020-04-18] MEDS ORDERED: SODIUM CHLORIDE 0.45% IV SCH (11:26)
[2020-04-18] MEDS: SODIUM BICARBONATE 8.4% 75 MEQ in SODIUM CHLORIDE 0.45 % 1,000 ML IV SCH ×2 (12:51→22:55)
[2020-04-18 14:16] LABS: BUN Creatinine Ratio 20.3 (10-20); Calcium 7.8 mg/dl (8.5-10.1); Creatinine Clr Calc Pharmacy 50.6 ml/min; Est GFR (African American) 49.4; Est GFR (Non-African American) 42.6; Potassium 4.6 mmol/L (3.5-5.1)
[2020-04-18] MEDS ORDERED: SODIUM PHOSPHATE 3 MMOL/1 ML INFUSION IV STA (14:55)
[2020-04-18] MEDS ORDERED: SODIUM PHOSPHATE 9 MMOL in SODIUM CHLORIDE 0.9% 250 ML IV ONE (15:00)
[2020-04-18] MEDS: TAMSULOSIN HCL 0.4 MG CAP PO SCH (20:23)
[2020-04-18] MEDS: ROSUVASTATIN CALCIUM 10 MG TAB PO SCH (20:23)
[2020-04-18] MEDS ORDERED: INSULIN GLARGINE SOLOSTAR 100 UNITS/ML 3 ML PEN SC SCH (21:00)
[2020-04-19] MEDS: SODIUM BICARBONATE 8.4% 75 MEQ in SODIUM CHLORIDE 0.45 % 1,000 ML IV SCH (01:18)
[2020-04-19] MEDS: INSULIN ASPART 100 UNITS/ML 3 ML PEN SC SCH ×3 (04:09→12:26)
[2020-04-19 06:58] LABS: Hematocrit (blood only) 32.6 % (42-52); Hemoglobin 10.9 g/dL (14.0-18.0); Mean Corpuscular Hemoglobin 32.3 pg (25-34); Mean Corpuscular Hgb Conc 33.4 g/dL (32-36); Mean Corpuscular Volume 96.7 fL (80-100); Mean Platelet Volume 9.7 fL (7.4-10.4); Platelet Count 150 K/uL (130-400); RDW Coefficient of Variation 14.8 % (11.5-14.5); RDW Standard Deviation 51.7 fL (36.4-46.3); Red Blood Count 3.37 M/uL (4.7-6.1); White Blood Count 8.77 K/uL (4.8-10.8)
[2020-04-19 07:08] LABS: INR 2.3 (0.9-1.1); Prothrombin Time 23.5 Seconds (9.0-12.0)
[2020-04-19 07:37] LABS: Est GFR (African American) 66.1; Potassium 3.9 mmol/L (3.5-5.1)
[2020-04-19 07:38] LABS: Calcium 7.7 mg/dl (8.5-10.1); Creatinine Clr Calc Pharmacy 64.1 ml/min; Magnesium 2.1 mg/dl (1.8-2.4); Phosphorus 1.9 mg/dl (2.5-4.9)
[2020-04-19] MEDS ORDERED: POTASSIUM PHOS 3 MMOL/1 ML INFUSION IV STA (07:43)
--- NOTE | 2020-04-19 07:43 | Hospitalist Progress Note ---
Date of Service April 19, 2020 Assessment & Plan (1) Metabolic acidosis, NAG, bicarbonate losses: Nausea, abdominal pain, diarrhea Likely acute gastroenteritis Dehydration ABD X ray: No free air. Mild gaseous distention of small and large bowel. This may reflect an ileus. COVID screen: Negative Consider CT imaging if needed Ordered stool studies -results pending C.diff sample sent, however stool was solid and therefore the test was not performed. Patient reports liquid stool for past 4 days. Will recheck again. Patient did not have any more bowel movements, therefore could not recheck for C. difficile. Follow-up with PCP in case patient has any more GI issues (diarrhea or constipation). treated conservatively with IV fluids, antiemetics Non-anion gap metabolic acidosis Likely secondary to GI losses IV fluids with bicarbonate Now normalized Nephrology consulted - stopped IVF w/ bicarb Mild troponin elevation Likely type II VA--demand ischemia Trend cardiac enzymes, troponin downtrended ekg repeated Resting echo obtained - shows a small, underfilled LV chamber size with moderate concentric LVH. Hyperdynamic LV systolic function, EF greater than 70%. No segmental LV wall motion abnormalities noted. Grade 1 diastolic dysfunction. 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 Systolic gradients are normal for his prosthesis and no evidence of regurg. Severe mitral annular calcification. Anemia -Per patient, had colonoscopy about 5 years ago, multiple polyps were removed at that time, denies any history of cancers polyps -FOBT ordered patient not have any more bowel movements, therefore not obtained -Recommend to follow-up with colonoscopy as outpatient at patient's earliest convenience/discuss with PCP when he is due for another colonoscopy HTN Blood pressure relatively low Hold lisinopril for now Monitor BP Acute on Chronic Bronchitis CXR:No acute cardiopulmonary findings. COVID negative Continue nebs as needed No wheezing on examination Started on Doxycycline on admission, continue JAMES Continue CPAP at bedtime S/P AVR, pAfib, follows w/ Dr. Salcido Supratherapeutic INR INR: 4.0 No significant bleeding issues Hold coumadin today resume coumadin Ambulatory dysfunction History of recent fall CT head:. No acute intracranial findings. No calvarial fracture Fall precautions PT/OT DM II Last HbA1C:6.9 on 03/31/20 Continue Insulin therapy Monitor BGs Paroxysmal atrial fibrillation, in addition to possible A. fib, on EKG sinus rhythm with first-degree AV block with occasional PVCs, left anterior fascicular block On Coumadin for anticoagulation Continue Atenolol -Patient may need outpatient rhythm evaluation (Zio patch), follows-up with Dr. Salcido BPH Continue home meds DVT Px:SCDs Resume coumadin Disposition PT/OT - pt to be d/c 'ed home Admission and Anticipated Discharge Date Admission Date: April 17, 2020 Subjective No acute events overnight. Patient is currently sitting in the bed, in no acute distress. He was seen by PT, safe to go home on discharge. Bicarb normalized today, IV infusion of bicarb stopped. Patient seen by nephrology, safe to go home. Patient says that he did not have any more bowel movements. He only had one small solid bowel movement yesterday. He feels well, denies any nausea, vomiting, abdominal pain. He is inquiring about going home. As patient did not have any more bowel movements, C. difficile could not be retested, and FOBT was not tested. Review of Systems Review of Systems: All systems reviewed & are unremarkable except as noted in HPI & below Constitutional: no fever and no chills Respiratory: no cough and no dyspnea Cardiovascular: no chest pain and no palpitations Gastrointestinal: no abdominal pain, no nausea and no vomiting Physical Exam Physical Exam: General Appearance: Elderly obese male, in no apparent distress Head: normocephalic, Atraumatic Eyes: normal inspection, EOMI Neck: supple, Trachea midline Respiratory/Chest: Decreased breath sounds, CTA, No accessory muscle use Cardiovascular: RRR w/ some ectopic, S1, S2, + metallic click, no murmur Abdomen/GI: Soft, obese, Non tender, Bowel sounds present Extremities/MSK: normal inspection, Trace pedal edema, chronic venous stasis changes Neurologic/Psych:AAOX3, speech fluent, no facial asymmetry, moves extremities spontaneously Skin: normal color, warm Results & Data Results & Data ([facility]) Vital Signs (Past 12 Hours) Vital Signs Temp Pulse Pulse Resp BP BP Pulse Ox 04/19/20 07:18 36.3 C L 73 18 155/70 H 97 04/19/20 07:06 72 04/19/20 04:10 36.6 C 64 20 122/63 92 04/19/20 03:24 64 16 94 04/19/20 01:25 69 04/18/20 22:44 36.7 C 75 18 132/72 94 04/18/20 22:09 71 18 95 Laboratory Results 04/19/20 04/19/20 04/19/20 Range/Units 06:44 06:44 06:44 WBC 8.77 (4.8-10.8) K/uL RBC 3.37 L (4.7-6.1) M/uL Hgb 10.9 L (14.0-18.0) g/dL Hct 32.6 L (42-52) % MCV 96.7 (80-100) fL MCH 32.3 (25-34) pg MCHC 33.4 (32-36) g/dL RDW Std Deviation 51.7 H (36.4-46.3) fL RDW Coeff of Chadd 14.8 H (11.5-14.5) % Plt Count 150 (130-400) K/uL MPV 9.7 (7.4-10.4) fL Immature Gran % (Auto) % Neut % (Auto) % Lymph % (Auto) % [place] % (Auto) % Eos % (Auto) % Baso % (Auto) % Neut # (Auto) (1.4-6.5) K/uL Lymph # (Auto) (1.2-3.4) K/uL [place] # (Auto) (0.11-0.59) K/uL Eos # (Auto) (0-0.5) K/uL Baso # (Auto) (0-0.2) K/uL Immature Gran # (Auto) (0.00-0.02) K/uL PT 23.5 H (9.0-12.0) Seconds INR 2.3 H (0.9-1.1) Sodium 145 (136-145) mmol/L Potassium 3.9 D (3.5-5.1) mmol/L Chloride 115 H (98-107) mmol/L Carbon Dioxide 23 (21-32) mmol/L Anion Gap 7.0 (3-11) BUN 29 H (7-18) mg/dl Creatinine 1.21 D (0.6-1.4) mg/dl Est Cr Clr Drug Dosing 64.1 ml/min Est GFR ( Amer) 66.1 Est GFR (Non-Af Amer) 57.0 BUN/Creatinine Ratio 24.0 H (10-20) Glucose 82 (70-99) mg/dl POC Glucose (70-99) mg/dl Calcium 7.7 L (8.5-10.1) mg/dl Ionized Calcium (1.12-1.32) mmol/L Phosphorus 1.9 L (2.5-4.9) mg/dl Magnesium 2.1 (1.8-2.4) mg/dl Total Bilirubin (0.2-1) mg/dl AST (15-37) U/L ALT (12-78) U/L Alkaline Phosphatase (45-117) U/L Total Protein (6.4-8.2) gm/dl Albumin (3.4-5.0) gm/dl Globulin (2.5-4.0) gm/dl Albumin/Globulin Ratio (0.9-2) Stl C. diff Tox B Gene 04/19/20 04/19/20 04/18/20 Range/Units 04:09 03:48 23:22 WBC (4.8-10.8) K/uL RBC (4.7-6.1) M/uL Hgb (14.0-18.0) g/dL Hct (42-52) % MCV (80-100) fL MCH (25-34) pg MCHC (32-36) g/dL RDW Std Deviation (36.4-46.3) fL RDW Coeff of Chadd (11.5-14.5) % Plt Count (130-400) K/uL MPV (7.4-10.4) fL Immature Gran % (Auto) % Neut % (Auto) % Lymph % (Auto) % [place] % (Auto) % Eos % (Auto) % Baso % (Auto) % Neut # (Auto) (1.4-6.5) K/uL Lymph # (Auto) (1.2-3.4) K/uL [place] # (Auto) (0.11-0.59) K/uL Eos # (Auto) (0-0.5) K/uL Baso # (Auto) (0-0.2) K/uL Immature Gran # (Auto) (0.00-0.02) K/uL PT (9.0-12.0) Seconds INR (0.9-1.1) Sodium (136-145) mmol/L Potassium (3.5-5.1) mmol/L Chloride (98-107) mmol/L Carbon Dioxide (21-32) mmol/L Anion Gap (3-11) BUN (7-18) mg/dl Creatinine (0.6-1.4) mg/dl Est Cr Clr Drug Dosing ml/min Est GFR ( Amer) Est GFR (Non-Af Amer) BUN/Creatinine Ratio (10-20) Glucose (70-99) mg/dl POC Glucose 83 92 104 H (70-99) mg/dl Calcium (8.5-10.1) mg/dl Ionized Calcium (1.12-1.32) mmol/L Phosphorus (2.5-4.9) mg/dl Magnesium (1.8-2.4) mg/dl Total Bilirubin (0.2-1) mg/dl AST (15-37) U/L ALT (12-78) U/L Alkaline Phosphatase (45-117) U/L Total Protein (6.4-8.2) gm/dl Albumin (3.4-5.0) gm/dl Globulin (2.5-4.0) gm/dl Albumin/Globulin Ratio (0.9-2) Stl C. diff Tox B Gene 04/18/20 04/18/20 04/18/20 Range/Units 20:05 16:39 13:52 WBC (4.8-10.8) K/uL RBC (4.7-6.1) M/uL Hgb (14.0-18.0) g/dL Hct (42-52) % MCV (80-100) fL MCH (25-34) pg MCHC (32-36) g/dL RDW Std Deviation (36.4-46.3) fL RDW Coeff of Chadd (11.5-14.5) % Plt Count (130-400) K/uL MPV (7.4-10.4) fL Immature Gran % (Auto) % Neut % (Auto) % Lymph % (Auto) % [place] % (Auto) % Eos % (Auto) % Baso % (Auto) % Neut # (Auto) (1.4-6.5) K/uL Lymph # (Auto) (1.2-3.4) K/uL [place] # (Auto) (0.11-0.59) K/uL Eos # (Auto) (0-0.5) K/uL Baso # (Auto) (0-0.2) K/uL Immature Gran # (Auto) (0.00-0.02) K/uL PT (9.0-12.0) Seconds INR (0.9-1.1) Sodium (136-145) mmol/L Potassium (3.5-5.1) mmol/L Chloride (98-107) mmol/L Carbon Dioxide (21-32) mmol/L Anion Gap (3-11) BUN (7-18) mg/dl Creatinine (0.6-1.4) mg/dl Est Cr Clr Drug Dosing ml/min Est GFR ( Amer) Est GFR (Non-Af Amer) BUN/Creatinine Ratio (10-20) Glucose (70-99) mg/dl POC Glucose 149 H 110 H (70-99) mg/dl Calcium (8.5-10.1) mg/dl Ionized Calcium (1.12-1.32) mmol/L Phosphorus 1.5 L* (2.5-4.9) mg/dl Magnesium (1.8-2.4) mg/dl Total Bilirubin (0.2-1) mg/dl AST (15-37) U/L ALT (12-78) U/L Alkaline Phosphatase (45-117) U/L Total Protein (6.4-8.2) gm/dl Albumin (3.4-5.0) gm/dl Globulin (2.5-4.0) gm/dl Albumin/Globulin Ratio (0.9-2) Stl C. diff Tox B Gene 04/18/20 04/18/20 04/18/20 Range/Units 13:52 11:26 09:20 WBC (4.8-10.8) K/uL RBC (4.7-6.1) M/uL Hgb (14.0-18.0) g/dL Hct (42-52) % MCV (80-100) fL MCH (25-34) pg MCHC (32-36) g/dL RDW Std Deviation (36.4-46.3) fL RDW Coeff of Chadd (11.5-14.5) % Plt Count (130-400) K/uL MPV (7.4-10.4) fL Immature Gran % (Auto) % Neut % (Auto) % Lymph % (Auto) % [place] % (Auto) % Eos % (Auto) % Baso % (Auto) % Neut # (Auto) (1.4-6.5) K/uL Lymph # (Auto) (1.2-3.4) K/uL [place] # (Auto) (0.11-0.59) K/uL Eos # (Auto) (0-0.5) K/uL Baso # (Auto) (0-0.2) K/uL Immature Gran # (Auto) (0.00-0.02) K/uL PT (9.0-12.0) Seconds INR (0.9-1.1) Sodium 141 (136-145) mmol/L Potassium 4.6 (3.5-5.1) mmol/L Chloride 111 H (98-107) mmol/L Carbon Dioxide 20 L (21-32) mmol/L Anion Gap 10.0 (3-11) BUN 31 H (7-18) mg/dl Creatinine 1.54 H D (0.6-1.4) mg/dl Est Cr Clr Drug Dosing 50.6 ml/min Est GFR ( Amer) 49.4 Est GFR (Non-Af Amer) 42.6 BUN/Creatinine Ratio 20.3 H (10-20) Glucose 195 H (70-99) mg/dl POC Glucose 240 H (70-99) mg/dl Calcium 7.8 L (8.5-10.1) mg/dl Ionized Calcium (1.12-1.32) mmol/L Phosphorus (2.5-4.9) mg/dl Magnesium (1.8-2.4) mg/dl Total Bilirubin (0.2-1) mg/dl AST (15-37) U/L ALT (12-78) U/L Alkaline Phosphatase (45-117) U/L Total Protein (6.4-8.2) gm/dl Albumin (3.4-5.0) gm/dl Globulin (2.5-4.0) gm/dl Albumin/Globulin Ratio (0.9-2) Stl C. diff Tox B Gene TNP 04/18/20 04/18/20 04/18/20 Range/Units 07:36 07:36 07:36 WBC (4.8-10.8) K/uL RBC (4.7-6.1) M/uL Hgb (14.0-18.0) g/dL Hct (42-52) % MCV (80-100) fL MCH (25-34) pg MCHC (32-36) g/dL RDW Std Deviation (36.4-46.3) fL RDW Coeff of Chadd (11.5-14.5) % Plt Count (130-400) K/uL MPV (7.4-10.4) fL Immature Gran % (Auto) % Neut % (Auto) % Lymph % (Auto) % [place] % (Auto) % Eos % (Auto) % Baso % (Auto) % Neut # (Auto) (1.4-6.5) K/uL Lymph # (Auto) (1.2-3.4) K/uL [place] # (Auto) (0.11-0.59) K/uL Eos # (Auto) (0-0.5) K/uL Baso # (Auto) (0-0.2) K/uL Immature Gran # (Auto) (0.00-0.02) K/uL PT 36.2 H (9.0-12.0) Seconds INR 3.7 H (0.9-1.1) Sodium 139 (136-145) mmol/L Potassium 4.4 (3.5-5.1) mmol/L Chloride 114 H (98-107) mmol/L Carbon Dioxide 17 L (21-32) mmol/L Anion Gap 8.0 (3-11) BUN 33 H (7-18) mg/dl Creatinine 1.23 (0.6-1.4) mg/dl Est Cr Clr Drug Dosing 63.4 ml/min Est GFR ( Amer) 64.8 Est GFR (Non-Af Amer) 55.9 BUN/Creatinine Ratio 26.5 H (10-20) Glucose 164 H (70-99) mg/dl POC Glucose (70-99) mg/dl Calcium 7.9 L (8.5-10.1) mg/dl Ionized Calcium 1.09 L (1.12-1.32) mmol/L Phosphorus (2.5-4.9) mg/dl Magnesium 2.2 (1.8-2.4) mg/dl Total Bilirubin 0.4 (0.2-1) mg/dl AST 26 (15-37) U/L ALT 28 (12-78) U/L Alkaline Phosphatase 45 (45-117) U/L Total Protein 7.3 (6.4-8.2) gm/dl Albumin 3.1 L (3.4-5.0) gm/dl Globulin 4.2 H (2.5-4.0) gm/dl Albumin/Globulin Ratio 0.7 L (0.9-2) Stl C. diff Tox B Gene 04/18/20 04/18/20 Range/Units 07:36 07:34 WBC 9.40 (4.8-10.8) K/uL RBC 3.18 L (4.7-6.1) M/uL Hgb 10.4 L (14.0-18.0) g/dL Hct 30.8 L (42-52) % MCV 96.9 (80-100) fL MCH 32.7 (25-34) pg MCHC 33.8 (32-36) g/dL RDW Std Deviation 51.9 H (36.4-46.3) fL RDW Coeff of Chadd 14.8 H (11.5-14.5) % Plt Count 153 (130-400) K/uL MPV 10.1 (7.4-10.4) fL Immature Gran % (Auto) 0.6 % Neut % (Auto) 86.9 % Lymph % (Auto) 8.1 % [place] % (Auto) 4.3 % Eos % (Auto) 0.0 % Baso % (Auto) 0.1 % Neut # (Auto) 8.17 H (1.4-6.5) K/uL Lymph # (Auto) 0.76 L (1.2-3.4) K/uL [place] # (Auto) 0.40 (0.11-0.59) K/uL Eos # (Auto) 0.00 (0-0.5) K/uL Baso # (Auto) 0.01 (0-0.2) K/uL Immature Gran # (Auto) 0.06 H (0.00-0.02) K/uL PT (9.0-12.0) Seconds INR (0.9-1.1) Sodium (136-145) mmol/L Potassium (3.5-5.1) mmol/L Chloride (98-107) mmol/L Carbon Dioxide (21-32) mmol/L Anion Gap (3-11) BUN (7-18) mg/dl Creatinine (0.6-1.4) mg/dl Est Cr Clr Drug Dosing ml/min Est GFR ( Amer) Est GFR (Non-Af Amer) BUN/Creatinine Ratio (10-20) Glucose (70-99) mg/dl POC Glucose 172 H (70-99) mg/dl Calcium (8.5-10.1) mg/dl Ionized Calcium (1.12-1.32) mmol/L Phosphorus (2.5-4.9) mg/dl Magnesium (1.8-2.4) mg/dl Total Bilirubin (0.2-1) mg/dl AST (15-37) U/L ALT (12-78) U/L Alkaline Phosphatase (45-117) U/L Total Protein (6.4-8.2) gm/dl Albumin (3.4-5.0) gm/dl Globulin (2.5-4.0) gm/dl Albumin/Globulin Ratio (0.9-2) Stl C. diff Tox B Gene
[2020-04-19] MEDS ORDERED: POTASSIUM PHOSPHATE 9 MMOL in SODIUM CHLORIDE 0.9% 250 ML IV ONE (08:00)
[2020-04-19] MEDS: PARoxetine HCL 20 MG TAB PO SCH (08:52)
[2020-04-19] MEDS: DOXYCYCLINE HYCLATE 100 MG CAP PO SCH (08:52)
[2020-04-19] MEDS: ATENOLOL 25 MG TABLET PO SCH (08:52)
[2020-04-19] MEDS: LACTOBACILLUS ACIDOPHILUS (FLORANEX) TAB PO SCH ×2 (08:52→12:27)
[2020-04-19] MEDS: FOLIC ACID 1 MG TAB PO SCH (08:52)
--- NOTE | 2020-04-19 10:34 | Pharmacy Report ---
Glycemic Control Progress Note - Date of Service April 19, 2020 - Scope Glycemic Pharmacist consulted for glycemic control to write orders per [facility] inpatient glycemic control protocol. - Objective Accuchecks BSG(last 24 hours):: 04/18/20 04/18/20 04/18/20 11:26 13:52 16:39 Glucose 195 H POC Glucose 240 H 110 H 04/18/20 04/18/20 04/19/20 20:05 23:22 03:48 Glucose POC Glucose 149 H 104 H 92 04/19/20 04/19/20 04/19/20 04:09 06:44 07:36 Glucose 82 POC Glucose 83 87 - Recent Pertinent Medications The patient is currently receiving: * Basal insulin: Lantus 30 units in the morning and 40 units in the evening * Correctional Insulin: Novolog Correction per scale ACHS Goal Range: Low 110 mg/dL - High 140 mg/dL Correction Factor: 15 mg/dL/unit * Prandial insulin: Per carb ratio of 1 unit per 5 grams CHO consumed - Outpatient Anti-Diabetic Meds Trulicity 1.5 mg SQ every Sunday Tresiba 60 units SQ BID Novolog scale (15-20 units) - Assessment & Plan ASSESSMENT: * See progress note from 04/17/2020 for more background info, in short: * Pt receiving SQ basal bolus insulin regimen for hyperglycemia secondary to baseline DM (outpatient regimen on hold). Patient is currently on doxycycline PO. * Patient is currently receiving an average of 117 units of insulin per day * 70 units of basal insulin * 47 units of prandial/correctional insulin * BSGs ranging 92 - 240 mg/dl over the past 24hrs * Changes needed to insulin regimen: * AM Fasting BSG = 87 mg/dl. This is below goal range for patient based on inpatient targets and co-morbidities. The patient's fasting yesterday was 172 mg/dL so this represents ~100 mg/dL drop. Patient also received mainly basal insulin yesterday (70 vs 47 units). Reduce to 40 units for tonight (~60% of previous dose). * Post-prandial BSGs are in range therefore no changes needed to CF/CR -- also parameters were loosened last night. * Total daily dose = ~80 units. Reduced insulin appropriately. PLAN FOR INPATIENT GLYCEMIC CONTROL: * Decreasing Lantus to 40 units SQ HS * Continuing correction factor of 15 mg/dl/unit * Continuing carb ratio of 1 unit per 5 grams CHO consumed * Continuing goal range of Low 110 mg/dL - High 140 mg/dL RECOMMENDATIONS FOR DISCHARGE: * see note from 04/18/20 Thank you.
--- NOTE | 2020-04-19 11:56 | Nephrology Progress Note ---
Date of Service April 19, 2020 Assessment & Plan (1) Metabolic acidosis, NAG, bicarbonate losses: Likely from diarrhea and NS combined. On appropriate fluids. Not a chronic issue consistently though does occur periodically on OP labs >> not likely a genetic or renal tubular disorder therefore. Diarrhea for now at least resolved. -Stop sodium bicarbonate infusion. From renal standpoint patient can be discharged (2) CLIFFORD (acute kidney injury): Due to prerenal azotemia in setting of diarrhea. Creatinine improving to 1.2 from 1.5 yesterday. We will stop fluids today. Admission and Anticipated Discharge Date Admission Date: April 17, 2020 Subjective He feels better today denies any shortness of breath or pain. He is only complaining of fatigue. Still on bicarb drip. Creatinine is down to 1.2. Review of Systems Review of Systems: All systems reviewed & are unremarkable except as noted in HPI & below Physical Exam 2 Physical Exam: General exam: Appears comfortable, no acute distress HEENT: Pupils are equal and reactive to light Neck: No JVD, neck is supple trachea is midline Respiratory system: Clear breath sounds bilaterally. Gastrointestinal: Abdomen is soft, non distended, non tender, bowel sounds are present CVS: Regular rate and rhythm. No murmurs, rubs or gallops Musculoskeletal: No joint or muscle tenderness Extremities: Non tender, no edema, peripheral pulses are present Neuro: Oriented, no tremors, no focal neurological deficits Skin: No rashes Results & Data ([facility]) Vital Signs (Past 12 Hours) Vital Signs Temp Pulse Pulse Resp BP Pulse Ox 04/19/20 11:17 36.8 C 71 18 134/74 93 04/19/20 07:18 36.3 C L 73 18 155/70 H 97 04/19/20 07:06 72 04/19/20 04:10 36.6 C 64 20 122/63 92 04/19/20 03:24 64 16 94 04/19/20 01:25 69 Laboratory Results 04/19/20 06:44 04/18/20 04/19/20 04/19/20 13:52 06:44 06:44 WBC 8.77 RBC 3.37 L MCV 96.7 MCH 32.3 MCHC 33.4 RDW Std Deviation 51.7 H RDW Coeff of Chadd 14.8 H Plt Count 150 MPV 9.7 Phosphorus 1.5 L* 1.9 L
--- NOTE | 2020-04-19 13:26 | Discharge Summary ---
Date of Service April 19, 2020 Admission HPI Per Admitting Provider Patient is a 79-year-old male with history of diabetes mellitus on Insulin therapy, iliac artery aneurysm, Paroxysmal atrial fibrillation, dyslipidemia, BPH, iron deficiency anemia, S/P aortic valve replacement, obstructive sleep apnea on CPAP, polyneuropathy and other medical problems presents with history of abdominal pain, diarrhea, nausea. Patient reports that abdominal pain is bandlike, upper abdomen, increases with movement and breathing,4/10 intensity, nonradiating associated with nausea but no vomiting. Denies any abdominal cramps. States having diarrhea which is profuse, associated with flatulence si nce 4 days duration. Had black-tinged stools intermittently, which he attributes to hemorrhoids. He tried Imodium which only temporarily helped. Denies any sick contact, recent travel. He admits to having fell 2 days ago when he tripped over and fell on his back hitting his head. He is unsteady with ambulation at baseline and uses a cane. Also states having dyspnea on exertion and chronic cough secondary to COPD with minimal intermittent yellowish expectoration since 2 weeks duration. Denies any history of chest pain, SOB at rest, palpitations, orthopnea, PND, dizziness, diaphoresis, wheezing, hemoptysis, fever, chills, LOC, headache, change in vision, vomiting, dysuria, hematuria, recent change in medications. Admission Exam Per Admitting Provider General Appearance:Obese, no apparent distress Head: normocephalic, Atraumatic Eyes: normal inspection, EOMI Neck: supple, Trachea midline Respiratory/Chest: Decreased breath sounds, CTA, No accessory muscle use Cardiovascular: S1, S2, + metallic click, no murmur Abdomen/GI:Soft, Non tender, Bowel sounds present Extremities/Musculoskelatal:normal inspection, Trace pedal edema, chronic venous stasis changes Neurologic/Psych:AAOX3, grossly no focal neurological deficits Skin: normal color, warm Principal Diagnosis Metabolic acidosis, non-anion gap, bicarbonate losses from GI tract CLIFFORD due to diarrhea Anemia, no troponin elevation bronchitis Discharge Exam General Appearance: Elderly obese male, in no apparent distress Head: normocephalic, Atraumatic Eyes: normal inspection, EOMI Neck: supple, Trachea midline Respiratory/Chest: Decreased breath sounds, CTA, No accessory muscle use Cardiovascular: RRR w/ some ectopic, S1, S2, + metallic click, no murmur Abdomen/GI: Soft, obese, Non tender, Bowel sounds present Extremities/MSK: normal inspection, Trace pedal edema, chronic venous stasis changes Neurologic/Psych:AAOX3, speech fluent, no facial asymmetry, moves extremities spontaneously Skin: normal color, warm Discharge Data Allergies Allergy/AdvReac Type Severity Reaction Status Date / Time No Known Allergies Allergy Verified 06/11/19 06:30 Consultations 04/17/20 14:28 ED Decision to Admit Stat 04/17/20 19:35 Consult Case Management - Discharge Planning Routine 04/18/20 09:31 Consult Nephrology Routine Ordered Studies 04/17/20 13:23 CT head/brain wo con Stat IMPRESSION: 1. No acute intracranial findings. 2. No calvarial fracture Hospital Course (1) Metabolic acidosis, NAG, bicarbonate losses: Nausea, abdominal pain, diarrhea Likely acute gastroenteritis Dehydration ABD X ray: No free air. Mild gaseous distention of small and large bowel. This may reflect an ileus. COVID screen: Negative Consider CT imaging if needed Ordered stool studies -results pending C.diff sample sent, however stool was solid and therefore the test was not performed. Patient reports liquid stool for past 4 days. Will recheck again. Patient did not have any more bowel movements, therefore could not recheck for C. difficile. Follow-up with PCP in case patient has any more GI issues (diarrhea or constipation). treated conservatively with IV fluids, antiemetics Non-anion gap metabolic acidosis Likely secondary to GI losses IV fluids with bicarbonate Now normalized Nephrology consulted - stopped IVF w/ bicarb Mild troponin elevation Likely type II NH--demand ischemia Trend cardiac enzymes, troponin downtrended ekg repeated Resting echo obtained - shows a small, underfilled LV chamber size with moderate concentric LVH. Hyperdynamic LV systolic function, EF greater than 70%. No segmental LV wall motion abnormalities noted. Grade 1 diastolic dysfunction. 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 Systolic gradients are normal for his prosthesis and no evidence of regurg. Severe mitral annular calcification. Anemia -Per patient, had colonoscopy about 5 years ago, multiple polyps were removed at that time, denies any history of cancers polyps -FOBT ordered patient not have any more bowel movements, therefore not obtained -Recommend to follow-up with colonoscopy as outpatient at patient's earliest convenience/discuss with PCP when he is due for another colonoscopy HTN Blood pressure relatively low Hold lisinopril for now Monitor BP Acute on Chronic Bronchitis CXR:No acute cardiopulmonary findings. COVID negative Continue nebs as needed No wheezing on examination Started on Doxycycline on admission, continue JAMES Continue CPAP at bedtime S/P AVR, pAfib, follows w/ Dr. Salcido Supratherapeutic INR INR: 4.0 No significant bleeding issues Hold coumadin today resume coumadin Ambulatory dysfunction History of recent fall CT head:. No acute intracranial findings. No calvarial fracture Fall precautions PT/OT - safe to return home per PT DM II Last HbA1C:6.9 on 03/31/20 Continue Insulin therapy Monitor BGs Paroxysmal atrial fibrillation, in addition to possible A. fib, on EKG sinus rhythm with first-degree AV block with occasional PVCs, left anterior fascicular block On Coumadin for anticoagulation Continue Atenolol -Patient may need outpatient rhythm evaluation (Zio patch), follows-up with Dr. Salcido Total Time Total Time Spent Total Time Spent (In Minutes): 40 Total Time Includes: Examination of the Patient, Discharge Planning, Medication Reconciliation and Communication With Other Providers Discharge Plan Discharge Items Patient Disposition: Home - Self-Care Reason For Visit: NON ANION GAP MEABOLIC ACIDOSIS Discharge Diagnosis: Metabolic acidosis, non-anion gap, bicarbonate losses from GI tract CLIFFORD due to diarrhea Anemia, no troponin elevation bronchitis Activity: Per Instructions section Non-emergency contact: Primary Care Provider Call non-emergency contact if: you have any medication questions and your symptoms worsen Follow-up/Referrals: Kobe Watkins, [Primary Care Provider] - Diet: Carb Consistent or DM2 Addtl Attending Provider Instructions: Follow-up with your primary care provider within 1 week. At that time results of your stool cultures will be available. In the meantime recommend light (low fat) diet. You were started on antibiotic, doxycycline, for bronchitis on admission. Please continue taking this for next 3 days. In the meantime do not take your iron supplement. You may need colonoscopy as outpatient. And you may need further evaluation of your heart rhythm as outpatient. Pending Studies at Discharge: Yes Studies:: Stool culture Stand-Alone Forms: My [employer], Smoking Cessation Medications and DC Order Prescriptions: New doxycycline hyclate 100 mg Capsule 100 mg PO BID 3 Days Qty: 6 RF: 0 Continued Tresiba FlexTouch U-100 100 unit/mL (3 mL) Insulin Pen 60 unit SUBCUT BID RF: 0 trospium 60 mg Capsule,Extended Release 24hr 60 mg PO QAM RF: 0 warfarin 5 mg tablet 5 mg PO SUTUWETHSA@16 RF: 0 Probiotic 3 billion cell Capsule 3,000 mmu cells PO DAILY RF: 0 Trulicity 1.5 mg/0.5 mL pen injector 1.5 mg SUBCUT MO RF: 0 ergocalciferol (vitamin D2) [Vitamin D2] 1,250 mcg (50,000 unit) Capsule 1,250 mcg PO DAILY RF: 0 tamsulosin [Flomax] 0.4 mg Capsule 0.4 mg PO HS RF: 0 lorazepam [Ativan] 1 mg Tablet 1 mg PO TID PRN (Reason: Anxiety) RF: 0 multivitamin Tablet 1 tab PO Q OTHER DAY RF: 0 amoxicillin 500 mg capsule 2,000 mg PO UD RF: 0 cyanocobalamin (vitamin B-12) [Vitamin B-12] 100 mcg Tablet 100 mcg PO QAM RF: 0 atenolol 25 mg tablet 25 mg PO QAM RF: 0 thiamine HCl (vitamin B1) [Vitamin B-1] 100 mg Tablet 100 mg PO QPM RF: 0 ascorbic acid (vitamin C) [Vitamin C] 500 mg Tablet 500 mg PO Q OTHER DAY RF: 0 paroxetine HCl [Paxil] 20 mg tablet 20 mg PO QAM RF: 0 ferrous sulfate 325 mg (65 mg iron) Tablet 325 mg PO BID RF: 0 warfarin [Jantoven] 5 mg tablet 10 mg PO MOFR@16 RF: 0 beta carotene 10,000 unit Capsule 10,000 unit PO QAM RF: 0 betamethasone dipropionate 0.05 % cream 1 applic Topical BID PRN (Reason: FLARE UPS) RF: 0 folic acid 1 mg tablet 1 mg PO QAM RF: 0 allopurinol [Zyloprim] 300 mg tablet 300 mg PO Q OTHER DAY RF: 0 lisinopril 2.5 mg tablet 2.5 mg PO QPM RF: 0 insulin aspart U-100 [Novolog Flexpen U-100 Insulin] 100 unit/mL insulin pen 0 unit subcut TIDM RF: 0 rosuvastatin [Crestor] 10 mg Tablet 10 mg PO QPM RF: 0 fluocinolone and shower cap [[place]-Smoothe/FS Scalp Oil] 0.01 % oil 1 applic Topical UD PRN (Reason: Rash) RF: 0 omega 2-wau-llo-fish oil [Fish Oil] 1,000 mg (120 mg-180 mg) Capsule 1 cap PO Q OTHER DAY RF: 0 Discharge Orders: Discharge Order (Routine); Ordered 04/19/20 Ordered By: Rodney Marie Admission Data Admit Date/Time: 04/17/20 15:40 Attending Provider: Rodney Marie Admit Provider: Reddy Palacios Primary Care Provider: Kobe Watkins Other Providers: Reddy Palacios ; Rebecca Balbuena
--- NOTE | 2020-04-19 15:15 | Electrocardiogram Report ---
Test Reason : Blood Pressure : / mmHG Vent. Rate : 078 BPM Atrial Rate : 078 BPM P-R Int : 220 ms QRS Dur : 116 ms QT Int : 412 ms P-R-T Axes : -20 -48 088 degrees QTc Int : 469 ms Sinus rhythm with 1st degree A-V block with occasional Premature ventricular complexes Left anterior fascicular block Minimal voltage criteria for LVH, may be normal variant ( R in aVL ) Nonspecific ST and T wave abnormality Prolonged QT Abnormal ECG When compared with ECG of 18-APR-2020 07:00, Sinus rhythm has replaced Atrial fibrillation Confirmed by Jeremiah Nicholas ([id number]) on 04/19/2020 3:14:35 PM Referred By: Kobe Watkins Confirmed By:Jeremiah Nicholas
[2020-04-19] MEDS ORDERED: WARFARIN SOD 5 MG TAB PO SCH (16:00)
[2020-04-19] MEDS ORDERED: INSULIN GLARGINE SOLOSTAR 100 UNITS/ML 3 ML PEN SC SCH (21:00)
== END 2020-04-19 15:06 | disposition home or self-care (01) ==
LOC: ED 12:27 → SUATTDRO 15:40 → 2N 15:40 → INTOOBSV 15:40 → 2N 18:22

== ENCOUNTER 2020-07-15 15:16 | Inpatient (IN) ==
--- NOTE | 2020-07-15 15:59 | Emergency Department Note ---
Impression & Plan Acute lower GI bleeding, Anemia, Elevated INR ED Provider Note NAME: DORI STOREY AGE: 80 SEX: M : 1940 ARRIVES VIA: Walk-In INFORMANT: Patient, ED PROVIDER(S): Jeremiah Downey DO CHIEF COMPLAINT: Elevated INR HPI: The patient is a 80-year-old male who presented to the emergency department for an evaluation of GI bleeding. The patient's been having GI bleeding for approximately 2 to 4 weeks. He did have a colonoscopy where he had some removal of polyps. He states that ever since that time he is continued to have episodes of bright red blood per rectum. The patient does take Coumadin for valve replacement. He has been having his INR drawn as usual at the Coumadin clinic. He was called today and advised to go to the emergency department because of an INR over 6. He does complain of shortness of breath with exertion. He denies having any abdominal pain or chest pain. He denies having any lower extremity swelling greater than usual. The patient was not seen by his primary care physician for the symptoms recently. The patient has had no recent falls. He last took his dose of Coumadin last evening. ROS: See above HPI for pertinent positives & negatives. A total of 10 systems reviewed and were otherwise negative. PAST MEDICAL HISTORY: See Below PAST SURGICAL HISTORY: See Below FAMILY HISTORY: See Below SOCIAL HISTORY: See Below HOME MEDICATIONS: See Below ALLERGIES: See Below VITALS: See Below PHYSICAL EXAMINATION: GENERAL: Patient is awake alert in no acute distress patient is resting comfortably and showing no signs of anxiety EYES: The conjunctivae are clear. The pupils are round and reactive. EARS, NOSE, MOUTH AND THROAT: The nose is without any evidence of any deformity. Mucous membranes are moist. Tongue is midline. NECK: The neck is nontender and supple. RESPIRATORY: Normal respiratory effort is noted there is no evidence of wheezing rhonchi or rales CARDIOVASCULAR: Regular rate and rhythm was noted auscultation. Metallic click was noted. GASTROINTESTINAL: Abdomen was soft and mildly distended. Rectal exam revealed dark stool that was strongly heme positive. MUSCULOSKELETAL/EXTREMITIES: There is no evidence of gross deformity full range of motion is noted in the hips and shoulders. SKIN: There is no obvious evidence of any rash. Chronic venous stasis changes were noted. NEUROLOGIC: Patient is awake alert and oriented x3. MEDICAL DECISION MAKING: The patient is a 80-year-old male who has a history of mechanical heart valve who presented to the emergency department because of lower GI bleeding. He has been having worsening weakness and worsening lower GI bleeding. He had a colonoscopy a few weeks ago and his symptoms seem to worsen since that time. He does take Coumadin in the evening for mechanical heart valve. He was seen at the Coumadin clinic today and was found to have an elevated INR. Given his bleeding he was sent to the emergency department. Rectal exam revealed gross blood per rectum which was strongly heme positive. The patient was treated with vitamin K as well as fresh frozen plasma. Blood products were ordered otherwise for blood transfusion because of significant anemia. I discussed the patient's laboratory and radiographic studies with him. I also discussed his case with the on-call [facility] hospitalist group. I ordered the patient's blood products and consented him for blood products. He was agreeable. He was reevaluated multiple times. Triage Nursing notes reviewed. Prior medical records reviewed Vital Signs: reviewed and remarkable for elevated blood pressure. Differential diagnosis: Diverticulosis, AVM, coagulopathy, colitis, inflammatory bowel disease, malignancy, Radha-Singh tear, esophagitis, peptic ulcer disease, variceal bleed, gastritis, epistaxis, fissure, hemorrhoids, as well as other pathologies. ER treatment provided: See below Diagnostics interpreted by me: ECG: EKG was obtained in the emergency department. My interpretation is sinus rhythm at 85 bpm. First-degree AV block was noted. LVH was noted by voltage criteria. There was no ectopy. This was compared to a tracing from April 22. No significant changes were noted. Cardiac Monitoring: An order was placed for continuous cardiac monitoring. The monitor shows a rate of 95 bpm with sinus rhythm. Laboratory studies: As stated above and show below. Imaging studies: See below Consultation(s): [id number]: I discussed this case with Dr. Garcia who evaluate the patient in the emergency department for further management and disposition. ED COURSE: Procedures: none PDMP:reviewed and no issues Critical Care: I have personally spent greater than 60 minutes of critical care time in the direct management of this patient. This includes bedside care, interpretation of diagnostic studies, and testing, discussion with consultants, patient, and family members, and other required patient management activities. This 60 minutes is in excess of all separately billable procedures. Past Med/Surg History Medical History Anemia Anxiety Aortic aneurysm HX OF- DOES NOT CURRENTLY HAVE PER PATIENT- per Dr. Salcido last office visit 08/18- see reports BPH (benign prostatic hyperplasia) Diabetes type 2, controlled Diabetic neuropathy Dyslipidemia ENMESIO (iron deficiency anemia) Iliac artery aneurysm PER PT'S - DOES NOT HAVE THIS ANYMORE Kidney stones HX -YRS AGO JAMES on CPAP Paroxysmal atrial fibrillation FOLLOWS WITH DR. KYMBERLY GARCIA- NO CARDIOVERSION- JUST TX WITH MEDS Urinary incontinence ON MEDS Surgical History Aortic valve replaced 1988 REPLACED AT [facility] History of appendectomy History of arthroscopy of both knees History of colonoscopy History of spinal surgery LUMBAR- UNSURE WHICH ONES History of total left knee replacement Hx of left cataract extraction Family History Mother Cervical cancer Father Myocardial infarction Social History Smoking Status: Former smoker Tobacco Type: Cigarettes Second Hand Exposure: No; Do You Dip or Chew Tobacco: No; Tobacco Cessation Education Requested by Patient: No Hx Alcohol Use: No Hx Substance Use: No Preferred Language: Maori Communication Ability: Effective Associate Media Planner Required: No Beliefs That Will Affect Care: None marital status: Current Living Situation: Spouse Other Information That Helps Us Care for You: No Feels Safe at Home: Yes Safety Concerns: Feels Safe At This Time Assistive Devices: Cane, CPAP and Glasses Allergies Allergies Allergy/AdvReac Type Severity Reaction Status Date / Time No Known Allergies Allergy Verified 07/15/20 17:55 Home Meds Home Medications Medication Instructions Recorded Confirmed allopurinol [Zyloprim] 300 mg PO Q OTHER DAY 08/26/18 07/15/20 amoxicillin 2,000 mg PO UD 08/26/18 07/15/20 ascorbic acid (vitamin C) [Vitamin 500 mg PO Q OTHER DAY 08/26/18 07/15/20 C] betamethasone dipropionate 1 applic TOPICAL BID PRN 08/26/18 07/15/20 ferrous sulfate 325 mg PO BID 08/26/18 07/15/20 fluocinolone and shower cap 1 applic TOPICAL UD PRN 08/26/18 07/15/20 [[place]-Smoothe/FS Scalp Oil] folic acid 1 mg PO QAM 08/26/18 07/15/20 insulin aspart U-100 [Novolog 0 unit SUBCUT TIDM 08/26/18 07/15/20 Flexpen U-100 Insulin] lisinopril 2.5 mg PO QPM 08/26/18 07/15/20 multivitamin 1 tab PO Q OTHER DAY 08/26/18 07/15/20 omega 0-xlm-cuf-fish oil [Fish Oil] 1 cap PO Q OTHER DAY 08/26/18 07/15/20 paroxetine HCl [Paxil] 20 mg PO QAM 08/26/18 07/15/20 rosuvastatin [Crestor] 10 mg PO QPM 08/26/18 07/15/20 thiamine HCl (vitamin B1) [Vitamin 100 mg PO QPM 08/26/18 07/15/20 B-1] Tresiba FlexTouch U-100 60 unit SUBCUT BID 04/29/19 07/15/20 trospium 60 mg PO QAM 06/06/19 07/15/20 Probiotic 3,000 mmu cells PO DAILY 04/17/20 07/15/20 Trulicity 1.5 mg SUBCUT WK 04/17/20 07/15/20 lorazepam [Ativan] 1 mg PO TID PRN 04/17/20 07/15/20 tamsulosin [Flomax] 0.4 mg PO HS 04/17/20 07/15/20 warfarin 5 - 10 mg PO .DAILY UD 04/17/20 07/15/20 beta carotene 25,000 unit PO DAILY 07/15/20 07/15/20 cholecalciferol (vitamin D3) 25 mcg PO DAILY 07/15/20 07/15/20 clobetasol 1 applic TOPICAL BID PRN 07/15/20 07/15/20 lactobacillus combination no.4 0 mmu cells PO DAILY 07/15/20 07/15/20 [Probiotic] metoprolol succinate [Toprol XL] 50 mg PO QAM 07/15/20 07/15/20 vitamin B complex 1 tab PO DAILY 07/15/20 07/15/20 Results & Data (ED) Vital Signs Vital Signs - 24 hr 07/15/20 15:28 07/15/20 16:16 07/15/20 16:17 Temperature 36.9 C Temperature Source Oral Pulse Rate 88 85 84 Pulse Rate [Apical] Pulse Rate from SpO2 Sensor 79 Pulse Rhythm Regular Pulse Rhythm [Apical] Pulse Strength [Apical] Respiratory Rate 18 22 14 Respiratory Effort / Characteristics Non-Labored Spontaneous Respiratory Depth Normal Respiratory Pattern Regular Blood Pressure 156/72 H 129/64 Blood Pressure [Right Arm] Blood Pressure Mean 100 93 Blood Pressure Mean [Right Arm] Blood Pressure Position Sitting Blood Pressure Position [Right Arm] Pulse Oximetry 96 94 95 Oxygen Delivery Method Room Air Room Air Sepsis Recent Fever Within 48 Hours No Sepsis New/Unexplained Change in Mental Status N/A Sepsis Action Taken by Nursing No Action Required 07/15/20 16:18 07/15/20 16:30 07/15/20 17:30 Temperature Temperature Source Pulse Rate 79 85 Pulse Rate [Apical] 84 Pulse Rate from SpO2 Sensor 81 85 Pulse Rhythm Pulse Rhythm [Apical] Regular Pulse Strength [Apical] Normal Respiratory Rate 14 27 H 24 Respiratory Effort / Characteristics Non-Labored Respiratory Depth Normal Respiratory Pattern Regular Blood Pressure 126/61 128/71 Blood Pressure [Right Arm] 129/64 Blood Pressure Mean 76 92 Blood Pressure Mean [Right Arm] 85 Blood Pressure Position Blood Pressure Position [Right Arm] Lying Pulse Oximetry 95 94 98 Oxygen Delivery Method Room Air Sepsis Recent Fever Within 48 Hours Sepsis New/Unexplained Change in Mental Status Sepsis Action Taken by Correction Medications Current Medication List: was personally reviewed by me Laboratory Data Attestation: I reviewed the patient's lab results. Result diagrams: 07/15/20 15:57 07/15/20 15:57 Lab Results 07/15/20 07/15/20 07/15/20 Range/Units 15:57 15:57 15:57 WBC 5.73 (4.8-10.8) K/uL RBC 2.29 L (4.7-6.1) M/uL Hgb 7.8 L (14.0-18.0) g/dL Hct 24.9 L (42-52) % MCV 108.7 H (80-100) fL MCH 34.1 H (25-34) pg MCHC 31.3 L (32-36) g/dL RDW Std Deviation 71.8 H (36.4-46.3) fL RDW Coeff of Chadd 18.3 H (11.5-14.5) % Plt Count 180 (130-400) K/uL MPV 9.9 (7.4-10.4) fL Immature Gran % (Auto) 1.0 % Neut % (Auto) 54.0 % Lymph % (Auto) 21.3 % Meagher % (Auto) 13.4 % Eos % (Auto) 9.8 % Baso % (Auto) 0.5 % Reticulocyte % (Auto) 8.1 H (0.5-2.0) % Neut # (Auto) 3.09 (1.4-6.5) K/uL Lymph # (Auto) 1.22 (1.2-3.4) K/uL Meagher # (Auto) 0.77 H (0.11-0.59) K/uL Eos # (Auto) 0.56 H (0-0.5) K/uL Baso # (Auto) 0.03 (0-0.2) K/uL Reticulocyte # 0.19 H (0.02-0.10) 10^6/uL Immature Gran # (Auto) 0.06 H (0.00-0.02) K/uL Polychromasia 1+ PT 82.8 H (9.0-12.0) Seconds INR 8.8 H* (0.9-1.1) APTT 50.1 H* (21.0-31.0) Seconds PTT Ratio 1.8 Sodium 143 (136-145) mmol/L Potassium 4.2 (3.5-5.1) mmol/L Chloride 113 H (98-107) mmol/L Carbon Dioxide 26 (21-32) mmol/L Anion Gap 4.0 (3-11) BUN 23 H (7-18) mg/dl Creatinine 1.55 H (0.6-1.4) mg/dl Est Cr Clr Drug Dosing 50.4 ml/min Est GFR ( Amer) 48.6 Est GFR (Non-Af Amer) 42.0 BUN/Creatinine Ratio 15.0 (10-20) Glucose 114 H (70-99) mg/dl Calcium 8.9 (8.5-10.1) mg/dl Total Bilirubin 0.2 (0.2-1) mg/dl AST 26 (15-37) U/L ALT 25 (12-78) U/L Alkaline Phosphatase 41 L (45-117) U/L Troponin I < 0.015 (0-0.045) ng/ml Total Protein 6.6 (6.4-8.2) gm/dl Albumin 3.2 L (3.4-5.0) gm/dl Globulin 3.4 (2.5-4.0) gm/dl Albumin/Globulin Ratio 0.9 (0.9-2) Lipase 406 H (73-393) U/L Blood Type Antibody Screen Crossmatch 07/15/20 Range/Units 15:58 WBC (4.8-10.8) K/uL RBC (4.7-6.1) M/uL Hgb (14.0-18.0) g/dL Hct (42-52) % MCV (80-100) fL MCH (25-34) pg MCHC (32-36) g/dL RDW Std Deviation (36.4-46.3) fL RDW Coeff of Chadd (11.5-14.5) % Plt Count (130-400) K/uL MPV (7.4-10.4) fL Immature Gran % (Auto) % Neut % (Auto) % Lymph % (Auto) % Meagher % (Auto) % Eos % (Auto) % Baso % (Auto) % Reticulocyte % (Auto) (0.5-2.0) % Neut # (Auto) (1.4-6.5) K/uL Lymph # (Auto) (1.2-3.4) K/uL Meagher # (Auto) (0.11-0.59) K/uL Eos # (Auto) (0-0.5) K/uL Baso # (Auto) (0-0.2) K/uL Reticulocyte # (0.02-0.10) 10^6/uL Immature Gran # (Auto) (0.00-0.02) K/uL Polychromasia PT (9.0-12.0) Seconds INR (0.9-1.1) APTT (21.0-31.0) Seconds PTT Ratio Sodium (136-145) mmol/L Potassium (3.5-5.1) mmol/L Chloride (98-107) mmol/L Carbon Dioxide (21-32) mmol/L Anion Gap (3-11) BUN (7-18) mg/dl Creatinine (0.6-1.4) mg/dl Est Cr Clr Drug Dosing ml/min Est GFR ( Amer) Est GFR (Non-Af Amer) BUN/Creatinine Ratio (10-20) Glucose (70-99) mg/dl Calcium (8.5-10.1) mg/dl Total Bilirubin (0.2-1) mg/dl AST (15-37) U/L ALT (12-78) U/L Alkaline Phosphatase (45-117) U/L Troponin I (0-0.045) ng/ml Total Protein (6.4-8.2) gm/dl Albumin (3.4-5.0) gm/dl Globulin (2.5-4.0) gm/dl Albumin/Globulin Ratio (0.9-2) Lipase (73-393) U/L Blood Type B Positive Antibody Screen NEGATIVE Crossmatch See Detail Administered Medications Discontinued Medications Phytonadione 5 mg/ Sodium (Chloride) 50.5 mls @ 101 mls/hr IV NOW STA Stop: 07/15/20 17:28 Last Infusion: 07/15/20 18:18 Dose: 0 mls/hr Documented by: [id number] Admin: 07/15/20 17:40 Dose: 101 mls/hr Documented by: [id number] Imaging Data Radiologist's Impression: Patient: DORI STOREY DAdmit Date: 07/15/20 MR#: [id number] Acct ID:[id number]: Date: [address] [place] [address] Zip: [place] [address] Age: 80Location: ED Sex: MRoom/Bed: Att Phy:Diagnosis: ABNORMAL LABS Ashia Phy: Kobe Watkins, DOService Date: 07/15/20 Fam Phy:Interpreting Phy: Alonso Madrigal MD Admit Phy: Ordering Phy: Jeremiah Downey DO cc: ~ XR chest 1V portable HISTORY: Atypical Chest Pain COMPARISON: Chest 04/17/2020. FINDINGS: The cardiac silhouette remains mildly enlarged. There is a tortuous thoracic aorta, unchanged. Poststernotomy changes. No pleural effusions. No pneumothorax. There is mild diffuse interstitial thickening, unchanged. This is likely chronic. No new focal lung consolidations to suggest pneumonia. No evidence for pulmonary edema. 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 IMPRESSION: No significant change compared to the prior study. No acute process. Stable mild cardiomegaly and chronic interstitial thickening. ACT 112: Negative or not required by law. Electronically signed by: Alonso Madrigal M.D. 07/15/2020 4:54 PM Dictated: 07/15/201649 Transcribed: 07/15/201649 Blood Pressure Blood Pressure Findings: Elevated blood pressure Blood Pressure Disposition: further management by hospitalist Discharge Plan Visit Data Chief Complaint: Abnormal Labs/Diagnostic Testing Stated Complaint: ABNORMAL LABS ED Provider: Jeremiah Downey Discharge Problem: Acute lower GI bleeding, Anemia, Elevated INR Patient Disposition: Admitted As Inpatient Condition: Good Discharge Instructions Interventions: ED Discharge Assessment Last Done: 07/15/20 18:51
[2020-07-15 16:06] LABS: Basophils # (auto) 0.03 K/uL (0-0.2); Basophils % (auto) 0.5 %; Eosinophils # (auto) 0.56 K/uL (0-0.5); Eosinophils % (auto) 9.8 %; Hematocrit (blood only) 24.9 % (42-52); Hemoglobin 7.8 g/dL (14.0-18.0); Immature Granulocytes # (auto) 0.06 K/uL (0.00-0.02); Lymphocytes # (auto) 1.22 K/uL (1.2-3.4); Lymphocytes % (auto) 21.3 %; Mean Corpuscular Hemoglobin 34.1 pg (25-34); Mean Corpuscular Hgb Conc 31.3 g/dL (32-36); Mean Corpuscular Volume 108.7 fL (80-100); Mean Platelet Volume 9.9 fL (7.4-10.4); Monocytes # (auto) 0.77 K/uL (0.11-0.59); Monocytes % (auto) 13.4 %; Neutrophils # (auto) 3.09 K/uL (1.4-6.5); Platelet Count 180 K/uL (130-400); RDW Coefficient of Variation 18.3 % (11.5-14.5); RDW Standard Deviation 71.8 fL (36.4-46.3); Red Blood Count 2.29 M/uL (4.7-6.1); Reticulocyte % 8.1 % (0.5-2.0); Reticulocytes # 0.19 10^6/uL (0.02-0.10); White Blood Count 5.73 K/uL (4.8-10.8)
[2020-07-15 16:23] LABS: Alanine Aminotransferase 25 U/L (12-78); Albumin Level 3.2 gm/dl (3.4-5.0); Aspartate Aminotransferase 26 U/L (15-37); Blood Urea Nitrogen 23 mg/dl (7-18); Calcium 8.9 mg/dl (8.5-10.1); Carbon Dioxide 26 mmol/L (21-32); Chloride 113 mmol/L (98-107); Creatinine Clr Calc Pharmacy 50.4 ml/min; Est GFR (African American) 48.6; Glucose 114 mg/dl (70-99); Lipase 406 U/L (73-393); Potassium 4.2 mmol/L (3.5-5.1); Sodium 143 mmol/L (136-145)
[2020-07-15 16:28] LABS: Albumin Globulin Ratio 0.9 (0.9-2); Alkaline Phosphatase 41 U/L (45-117); Bilirubin,Total 0.2 mg/dl (0.2-1); Globulin 3.4 gm/dl (2.5-4.0); Total Protein 6.6 gm/dl (6.4-8.2); Troponin I < 0.015 ng/ml (0-0.045)
[2020-07-15 16:29] LABS: Partial Thromboplastin Ratio 1.8; Polychromasia 1+; Prothrombin Time 82.8 Seconds (9.0-12.0)
[2020-07-15 16:34] LABS: INR 8.8 (0.9-1.1); Partial Thromboplastin Time 50.1 Seconds (21.0-31.0)
[2020-07-15] MEDS ORDERED: SODIUM CHLORIDE 0.9% 250 ML IV PRN (16:51)
[2020-07-15] MEDS ORDERED: PHYTONADIONE PED 1 MG/0.5ML AMP/SYRG IV ONE (16:52)
--- NOTE | 2020-07-15 16:55 | XRay Report ---
XR chest 1V portable HISTORY: Atypical Chest Pain COMPARISON: Chest 04/17/2020. FINDINGS: The cardiac silhouette remains mildly enlarged. There is a tortuous thoracic aorta, unchang ed. Poststernotomy changes. No pleural effusions. No pneumothorax. There is mild diffuse interstitial thickening, unchanged. This is likely chronic. No new focal lung consolidations to suggest pneumonia . No evidence for pulmonary edema. 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 IMPRESSION: No significant change compared to the prior study. No acute process. Stable mild cardiomegaly and chr onic interstitial thickening. ACT 112: Negative or not required by law. Electronically signed by: Alonso Madrigal M.D. 07/15/2020 4:54 PM
[2020-07-15] MEDS ORDERED: PHYTONADIONE 5 MG in SODIUM CHLORIDE 0.9% 50 ML IV STA (16:59)
--- NOTE | 2020-07-15 17:46 | History & Physical Report ---
Date of Service July 15, 2020 Assessment & Plan (1) Rectal bleeding: (2) Anemia due to GI blood loss: (3) JAMES on CPAP: (4) Diabetes type 2, controlled: (5) Dyslipidemia: (6) BPH (benign prostatic hyperplasia): (7) NEMESIO (iron deficiency anemia): (8) S/P AVR (aortic valve replacement): He was given 5 mg of vitamin K in the emergency room, he is ordered 2 units of blood and 2 units of FFP. We will see her where he is tomorrow. He will be placed inpatient on telemetry. ROS-No Headache, No Visual Changes, No Nausea, No Vomiting, No Fever, No Chills, No Neck Pain or Stiffness, No Chest Pain, No Palpitations, No SOB, No NUÑEZ, No Cough, No Sputum, No Wheezing, No Abdominal Pain, No Diarrhea, No Hematemesis, No Hemoptysis, No Unexpected Weight Loss, No Flank pain, No Melena, positive hematochezia, No Frequency, No Urgency, No Burning, No Hematuria, No Rashes, No Diaphoresis. Appetite is Normal Physical Exam Gen-AAO x 3, NAD, Afebrile, obese, very pleasant Head-NCAT, EOMI, PERRLA, Anicteric Sclera, No Posterior Pharyngeal Erythema Neck-Supple, No JVD, No Thyromegaly, No Masses, No LAD, No Bruits Lungs-Clear to Auscultation Bilaterally, No Rales, No Rhonchi, No Wheezing, No Crepitus Chest-No S4, +S1, +S2, No S3, No Murmurs, No Rubs, No Gallops, No Ectopy Abdomen-Soft, Bowel Sounds Present, Non Tender, Non Distended, No Hepatomegaly, No Splenomegaly, No Palpable Masses, No Rebound, No Rigidity, No Guarding Musculoskeletal-Full Range of Motion Bilaterally, No CVAT Extremities-No Cyanosis, No Clubbing, No Edema Nuero-Cranial Nerves II-XII grossly intact, Motor WNL, DTRs WNL, Strength WNL, Non Focal Psych-Normal Mood History of Present Illness Primary Care Provider: Kobe Watkins, 80-year-old male who had a colonoscopy [address] Murillo and since then has had sporadic bleeding from the rectum bright red. He says it every time he goes to the bathroom there is bright red blood in the toilet and he drips bright red blood for a short amount of time after each defecation. He went to Coumadin clinic today and his INR was 8 and his hemoglobin was 6.8. Dr. Kobe Ewing told him to go to the emergency room. Allergies Allergy/AdvReac Type Severity Reaction Status Date / Time No Known Allergies Allergy Verified 06/11/19 06:30 Home Medications Home Medications Medication Instructions Recorded Confirmed Type allopurinol [Zyloprim] 300 mg PO Q OTHER DAY 08/26/18 04/17/20 History amoxicillin 2,000 mg PO UD 08/26/18 04/17/20 History ascorbic acid (vitamin C) [Vitamin 500 mg PO Q OTHER DAY 08/26/18 04/17/20 History C] atenolol 25 mg PO QAM 08/26/18 04/17/20 History beta carotene 10,000 unit PO QAM 08/26/18 04/17/20 History betamethasone dipropionate 1 applic TOPICAL BID PRN 08/26/18 04/17/20 History cyanocobalamin (vitamin B-12) 100 mcg PO QAM 08/26/18 04/17/20 History [Vitamin B-12] ferrous sulfate 325 mg PO BID 08/26/18 04/17/20 History fluocinolone and shower cap 1 applic TOPICAL UD PRN 08/26/18 04/17/20 History [[place]-Smoothe/FS Scalp Oil] folic acid 1 mg PO QAM 08/26/18 04/17/20 History insulin aspart U-100 [Novolog 0 unit SUBCUT TIDM 08/26/18 06/11/19 History Flexpen U-100 Insulin] lisinopril 2.5 mg PO QPM 08/26/18 04/17/20 History multivitamin 1 tab PO Q OTHER DAY 08/26/18 04/17/20 History omega 4-jdy-hxj-fish oil [Fish Oil] 1 cap PO Q OTHER DAY 08/26/18 04/17/20 History paroxetine HCl [Paxil] 20 mg PO QAM 08/26/18 04/17/20 History rosuvastatin [Crestor] 10 mg PO QPM 08/26/18 04/17/20 History thiamine HCl (vitamin B1) [Vitamin 100 mg PO QPM 08/26/18 04/17/20 History B-1] warfarin [Jantoven] 10 mg PO MOFR@16 08/26/18 04/17/20 History Tresiba FlexTouch U-100 60 unit SUBCUT BID 04/29/19 04/17/20 History trospium 60 mg PO QAM 06/06/19 04/17/20 History Probiotic 3,000 mmu cells PO DAILY 04/17/20 04/17/20 History Trulicity 1.5 mg SUBCUT MO 04/17/20 04/17/20 History ergocalciferol (vitamin D2) 1,250 mcg PO DAILY 04/17/20 04/17/20 History [Vitamin D2] lorazepam [Ativan] 1 mg PO TID PRN 04/17/20 04/17/20 History tamsulosin [Flomax] 0.4 mg PO HS 04/17/20 04/17/20 History warfarin 5 mg PO SUTUWETHSA@16 04/17/20 04/17/20 History Past Med/Surg History Medical History Anemia Anxiety Aortic aneurysm HX OF- DOES NOT CURRENTLY HAVE PER PATIENT- per Dr. Salcido last office visit 08/18- see reports BPH (benign prostatic hyperplasia) Diabetes type 2, controlled Diabetic neuropathy Dyslipidemia NEMESIO (iron deficiency anemia) Iliac artery aneurysm PER PT'S - DOES NOT HAVE THIS ANYMORE Kidney stones HX -YRS AGO JAMES on CPAP Paroxysmal atrial fibrillation FOLLOWS WITH DR. KYMBERLY GARCIA- NO CARDIOVERSION- JUST TX WITH MEDS Urinary incontinence ON MEDS Surgical History Aortic valve replaced 1987 REPLACED AT [place] History of appendectomy History of arthroscopy of both knees History of colonoscopy History of spinal surgery LUMBAR- UNSURE WHICH ONES History of total left knee replacement Hx of left cataract extraction Family History Mother Cervical cancer Father Myocardial infarction Social History Smoking Status: Former smoker Tobacco Type: Cigarettes Second Hand Exposure: No; Hx Alcohol Use: Yes Alcohol type: beer Hx Substance Use: No Preferred Language: Yoruba Communication Ability: Effective Work Order Clerk Required: No Beliefs That Will Affect Care: None marital status: Current Living Situation: Spouse Feels Safe at Home: Yes Assistive Devices: CPAP Results & Data Results & Data ([facility]) Vital Signs (Past 12 Hours) Vital Signs Temp Pulse Pulse Resp BP BP Pulse Ox 07/15/20 16:18 84 14 129/64 95 07/15/20 16:17 84 14 95 07/15/20 15:28 36.9 C 88 18 156/72 H 96
[2020-07-15] MEDS ORDERED: DEXTROSE 50% 50 ML SYRINGE IV PRN (19:22)
[2020-07-15] MEDS ORDERED: [UNRECOGNIZED DRUG - OTHER] TOP PRN (19:22)
[2020-07-15] MEDS ORDERED: LORazepam 1 MG TAB PO PRN (19:22)
[2020-07-15] MEDS ORDERED: ACETAMINOPHEN 325 MG TAB PO PRN (19:22)
[2020-07-15] MEDS ORDERED: GLUCOSE 10 TABS/TUBE PO PRN (19:22)
[2020-07-15] MEDS ORDERED: BETAMETHASONE DIP AUG 0.05% OINT 15 GM TUBE EXT PRN (19:22)
[2020-07-15] MEDS ORDERED: FLUOCINOLONE TOP PRN (19:22)
[2020-07-15] MEDS ORDERED: GLUCOSE 40% GEL 15 GM TUBE PO PRN (19:22)
[2020-07-15] MEDS ORDERED: GLUCAGON FOR INJ 1 MG VIAL SQ PRN (19:22)
[2020-07-15] MEDS ORDERED: CARBOHYDRATES FOR HYPOGLYCEMIA PO PRN (19:22)
[2020-07-15] MEDS ORDERED: PHARMACY GLYCEMIC MGMT CONSULT PRN (19:33)
--- NOTE | 2020-07-15 20:14 | Pharmacy Report ---
Glycemic Control Consultation - Date of Service July 15, 2020 - Scope Scope: Glycemic Pharmacist consulted for glycemic control and to write orders per [facility] inpatient glycemic control protocol. - Objective Weight: 124.2 kg Accuchecks BSG (last 24hrs): 07/15/20 15:57 Glucose 114 H Laboratory Data (last 24hrs): 07/15/20 15:57 Potassium 4.2 Carbon Dioxide 26 Anion Gap 4.0 Creatinine 1.55 H Est Cr Clr Drug Dosing 50.4 HbA1c: 6.9% on 03/31/20 {outdated} - Recent Pertinent Medications Outpatient Anti-diabetic Regimen: * Tresiba (insulin degludec) 60 units SQ BID * Trulicity 1.5mg SQ weekly on Mondays * NovoLog per scale ACHS - Assessment & Plan Assessment & Plan: ASSESSMENT: * 80yo T2DM male known to pharmacy from previous admissions/glycemic consults. * Previously excellent glycemic control per A1c in March of this year - but this is outdated. Will re-order per protocol. * Pt typically uses ~ 1/2 of his outpatient insulin doses in house as compared to outpatient dosing. * Pt is NPO secondary to GI bleed - will even further reduce outpatient dosing to ~40% and titrate based on BSG trends. * NovoLog parameters per estimated basal of ~ 40 units/day PLAN FOR INPATIENT GLYCEMIC CONTROL: * Holding outpatient diabetes medications of Tresiba (non-formulary; will sub to Lantus) and Trulicity * Basal insulin * Lantus 40 units SQ daily. Will start tomorrow AM since patient took 60 un its of Tresiba this AM [employer] * Bolus insulin * NovoLog per scale ACHS or Q6hrs while NPO * Goal Range: Low 110 mg/dL - High 140 mg/dL * Correction Factor: 20 mg/dL/unit * Nutritional / Prandial insulin per carb ratio of 1 unit per 6 grams CHO consumed * A1c with AM labs * Please note that the plan above was derived based on current level of insulin resistance and hospital stress. These recommendations are appropriate for inpatient admission only. Plan of care upon discharge will need to be reassessed to avoid potential outpatient hypo/hyperglycemia. Thank you.
[2020-07-15] MEDS ORDERED: INSULIN DEGLUDEC 60 UNIT SQ SCH (21:00)
[2020-07-15] MEDS ORDERED: lisinopril 2.5 MG TAB PO SCH (21:00)
[2020-07-15] MEDS: FERROUS SULFATE 325 MG TAB PO SCH (21:23)
[2020-07-15] MEDS: THIAMINE HCL 100 MG TAB PO SCH (21:24)
[2020-07-15] MEDS: ROSUVASTATIN CALCIUM 10 MG TAB PO SCH (21:24)
[2020-07-15] MEDS: TAMSULOSIN HCL 0.4 MG CAP PO SCH (21:24)
[2020-07-16] MEDS ORDERED: INSULIN GLARGINE SOLOSTAR 100 UNITS/ML 3 ML PEN SC SCH ×3 (09:00→21:00)
[2020-07-16] MEDS ORDERED: ATENOLOL 25 MG TABLET PO SCH (09:00)
[2020-07-16] MEDS ORDERED: BETA CAROTENE 10000 UNIT PO SCH (09:00)
[2020-07-16 09:06] LABS: Hematocrit (blood only) 30.8 % (42-52); Hemoglobin 9.7 g/dL (14.0-18.0); Mean Corpuscular Hemoglobin 33.2 pg (25-34); Mean Corpuscular Hgb Conc 31.5 g/dL (32-36); Mean Corpuscular Volume 105.5 fL (80-100); Mean Platelet Volume 9.3 fL (7.4-10.4); Platelet Count 153 K/uL (130-400); RDW Coefficient of Variation 18.5 % (11.5-14.5); RDW Standard Deviation 69.9 fL (36.4-46.3); Red Blood Count 2.92 M/uL (4.7-6.1)
--- NOTE | 2020-07-16 09:09 | Gastrointestinal Consultation ---
Date of Consultation July 16, 2020 Assessment & Plan (1) Acute lower GI bleeding: Painless rectal bleeding x 1 s/p colonoscopy w/ polyp removal and evidence of internal/external hemorrhoids 1 month ago admitted w/ anemia, HGB 7.8 w/ supratherapeutic INR of 8.8. He is hemodynamically stable, received 5 mg of vitamin K 2 units of blood and 2 units of FFP. DDX discussed: oozing from polyp site, bleeding hemorrhoids, AVM vs other Await AM labs Given significant elevated INR yesterday will defer endoscopic evaluation today Continue conservative management Hold Coumadin Trend INR Consider additional Vit K pending AM value Trend HGB Monitor and document all bowel movements Transfuse per primary team PO PPI No GI contraindication to clear liquids today pending review of labs Thank you for allowing us to participate in the care of this patient. Please call with any acute changes, questions or concerns. Please see addendum below with additional recommendation from my supervising physician. Supervising Physician Co-Signing Physician Notes I have seen and examined the patient and discussed the management with AUGUSTIN Bryan. GI consulted for rectal bleed. No rectal bleeding since admission until this afternoon after having a formed bm without straining and then noticing dripping blood. He has no hemodynamic instability, no belly ttp. Initially drop to hgb that responded to blood transfusion and INR improvement to 2. No other complaints. No pain with bm's, no signfiicant straining, no abdominal pain, essentially painless bleeding. On JENNIFER showing external hemorrhoid that is not engorged or painful to touch, prior colon stating large internal hemorrhoids. Discussed that likely his description of bleeding is hemorrhoidal in nature and attempt at plugging the area when acutely bleeding can help and keeping bm's on the softer side. Suspect this occurred now due to supratherapeutic inr and anticipate this should improve now that his inr has normalized. If persistent issues, consider outpatient CRS evaluation for anoscopy and hemorrhoidal banding if indicated. GI will sign off. History of Present Illness Reason for Consultation: rectal bleeding Requesting Physician: Kang Attending Physician: Louie Kapadia MD History of Present Illness 80 year old male with history of AVR on coumadin, JAMES on CPAP, T2DM, dyslipidemia, AFIB and other below who presents through the ED For evaluation of rectal bleeding - GI asked to evaluate. Notes he had a colonoscopy done about 1 month ago. He had 7 small polyps removed w/ cold snare. Suggests since, he has had painless BRB tricking in toilet with every BM and if he sits on the toilet to urinate. No clots. No blood mixed with stool. Stools are brown. No black stools No UGI symptoms specifically no GERD, dysphagia, vomting or history of black/bloody emesis. He is cold, tired but denies CP, SOB. In the ED, HGB 7.8 w/ INR 8.8. No BUN elevation. He was given 5 mg of vitamin K in the emergency room, 2 units of blood and 2 units of FFP. Labs this AM yet to be obtained Colonoscopy 2019: internal and external hemorrhoids, 4-ascending , 3-transverse, 1-descending polyps removed w/ cold snared 3 year recall recommended Allergies Allergy/AdvReac Type Severity Reaction Status Date / Time No Known Allergies Allergy Verified 07/15/20 17:55 Home Medications Home Medications Medication Instructions Recorded Confirmed Type allopurinol [Zyloprim] 300 mg PO Q OTHER DAY 08/26/18 07/15/20 History amoxicillin 2,000 mg PO UD 08/26/18 07/15/20 History ascorbic acid (vitamin C) [Vitamin 500 mg PO Q OTHER DAY 08/26/18 07/15/20 History C] betamethasone dipropionate 1 applic TOPICAL BID PRN 08/26/18 07/15/20 History ferrous sulfate 325 mg PO BID 08/26/18 07/15/20 History fluocinolone and shower cap 1 applic TOPICAL UD PRN 08/26/18 07/15/20 History [[place]-Smoothe/FS Scalp Oil] folic acid 1 mg PO QAM 08/26/18 07/15/20 History insulin aspart U-100 [Novolog 0 unit SUBCUT TIDM 08/26/18 07/15/20 History Flexpen U-100 Insulin] lisinopril 2.5 mg PO QPM 08/26/18 07/15/20 History multivitamin 1 tab PO Q OTHER DAY 08/26/18 07/15/20 History omega 2-vrn-fzs-fish oil [Fish Oil] 1 cap PO Q OTHER DAY 08/26/18 07/15/20 History paroxetine HCl [Paxil] 20 mg PO QAM 08/26/18 07/15/20 History rosuvastatin [Crestor] 10 mg PO QPM 08/26/18 07/15/20 History thiamine HCl (vitamin B1) [Vitamin 100 mg PO QPM 08/26/18 07/15/20 History B-1] Tresiba FlexTouch U-100 60 unit SUBCUT BID 04/29/19 07/15/20 History trospium 60 mg PO QAM 06/06/19 07/15/20 History Probiotic 3,000 mmu cells PO DAILY 04/17/20 07/15/20 History Trulicity 1.5 mg SUBCUT WK 04/17/20 07/15/20 History lorazepam [Ativan] 1 mg PO TID PRN 04/17/20 07/15/20 History tamsulosin [Flomax] 0.4 mg PO HS 04/17/20 07/15/20 History warfarin 5 - 10 mg PO .DAILY UD 04/17/20 07/15/20 History beta carotene 25,000 unit PO DAILY 07/15/20 07/15/20 History cholecalciferol (vitamin D3) 25 mcg PO DAILY 07/15/20 07/15/20 History clobetasol 1 applic TOPICAL BID PRN 07/15/20 07/15/20 History lactobacillus combination no.4 0 mmu cells PO DAILY 07/15/20 07/15/20 History [Probiotic] metoprolol succinate [Toprol XL] 50 mg PO QAM 07/15/20 07/15/20 History vitamin B complex 1 tab PO DAILY 07/15/20 07/15/20 History Patient History Medical History Anemia Anxiety Aortic aneurysm HX OF- DOES NOT CURRENTLY HAVE PER PATIENT- per Dr. Salcido last office visit 08/18- see reports BPH (benign prostatic hyperplasia) Diabetes type 2, controlled Diabetic neuropathy Dyslipidemia NEMESIO (iron deficiency anemia) Iliac artery aneurysm PER PT'S - DOES NOT HAVE THIS ANYMORE Kidney stones HX -YRS AGO JAMES on CPAP Paroxysmal atrial fibrillation FOLLOWS WITH DR. KYMBERLY GARCIA- NO CARDIOVERSION- JUST TX WITH MEDS Urinary incontinence ON MEDS Surgical History Aortic valve replaced 1988 REPLACED AT [facility] History of appendectomy History of arthroscopy of both knees History of colonoscopy History of spinal surgery LUMBAR- UNSURE WHICH ONES History of total left knee replacement Hx of left cataract extraction Family History Mother Cervical cancer Father Myocardial infarction Social History Smoking Status: Former smoker Tobacco Type: Cigarettes Second Hand Exposure: No; Do You Dip or Chew Tobacco: No; Tobacco Cessation Education Requested by Patient: No Hx Alcohol Use: No Hx Substance Use: No Preferred Language: Cymraes Communication Ability: Effective Bundle Wrapper Required: No Beliefs That Will Affect Care: None marital status: Current Living Situation: Spouse Other Information That Helps Us Care for You: No Feels Safe at Home: Yes Safety Concerns: Feels Safe At This Time Assistive Devices: Cane, CPAP and Glasses Review of Systems Constitutional: no fever and no chills Respiratory: no cough and no dyspnea Cardiovascular: no chest pain and no dyspnea Gastrointestinal: + blood in stools; no abdominal pain, no coffee ground emesis, no hematemesis, no diarrhea/loose stools and no melena Physical Exam Constitutional: well developed and well nourished; no acute distress Neck: trachea midline Respiratory: normal respiratory effort Gastrointestinal (Abdomen): normal bowel sounds, soft, nontender, no hepatosplenomegaly Skin: no rashes, warm and dry Results & Data ([facility]) Vital Signs (Past 12 Hours) Vital Signs Temp Pulse Pulse Resp BP Pulse Ox 07/16/20 08:01 36.4 C L 78 20 133/71 94 07/16/20 07:18 36.4 C L 78 20 133/71 94 07/16/20 06:18 36.5 C 73 20 142/74 H 07/16/20 06:15 36.6 C 79 16 122/70 95 07/16/20 05:18 36.4 C L 71 16 132/71 95 07/16/20 04:45 36.2 C L 78 16 140/64 95 07/16/20 04:30 36.4 C L 78 16 138/72 94 07/16/20 04:25 36.2 C L 82 16 146/70 H 99 07/16/20 04:20 36.2 C L 81 16 144/80 H 95 07/16/20 04:17 36.4 C L 77 16 117/60 96 07/16/20 04:02 36.4 C L 79 18 97 07/16/20 02:10 36.4 C L 78 16 156/99 H 95 07/16/20 01:16 36.6 C 83 18 133/72 96 07/16/20 00:15 36.5 C 96 H 16 155/75 H 96 07/16/20 00:00 78 07/15/20 22:45 36.4 C L 78 16 150/77 H 98 07/15/20 22:35 36.8 C 82 16 155/75 H 98 07/15/20 22:30 36.7 C 78 16 151/68 H 96 07/15/20 22:25 36.5 C 79 16 146/77 H 98 07/15/20 22:20 36.5 C 80 16 149/75 H 98 07/15/20 22:16 36.5 C 80 16 149/75 H 98 Laboratory Results 07/16/20 07/16/20 07/16/20 Range/Units 08:50 08:50 08:50 WBC 6.60 (4.8-10.8) K/uL RBC 2.92 L (4.7-6.1) M/uL Hgb 9.7 L (14.0-18.0) g/dL Hct 30.8 L (42-52) % MCV 105.5 H (80-100) fL MCH 33.2 (25-34) pg MCHC 31.5 L (32-36) g/dL RDW Std Deviation 69.9 H (36.4-46.3) fL RDW Coeff of Chadd 18.5 H (11.5-14.5) % Plt Count 153 (130-400) K/uL MPV 9.3 (7.4-10.4) fL Immature Gran % (Auto) % Neut % (Auto) % Lymph % (Auto) % Fountain % (Auto) % Eos % (Auto) % Baso % (Auto) % Reticulocyte % (Auto) (0.5-2.0) % Neut # (Auto) (1.4-6.5) K/uL Lymph # (Auto) (1.2-3.4) K/uL Fountain # (Auto) (0.11-0.59) K/uL Eos # (Auto) (0-0.5) K/uL Baso # (Auto) (0-0.2) K/uL Reticulocyte # (0.02-0.10) 10^6/uL Immature Gran # (Auto) (0.00-0.02) K/uL Polychromasia PT Pending (9.0-12.0) Seconds INR Pending (0.9-1.1) APTT (21.0-31.0) Seconds PTT Ratio Sodium Pending (136-145) mmol/L Potassium Pending (3.5-5.1) mmol/L Chloride Pending (98-107) mmol/L Carbon Dioxide Pending (21-32) mmol/L Anion Gap Pending (3-11) BUN Pending (7-18) mg/dl Creatinine Pending (0.6-1.4) mg/dl Est Cr Clr Drug Dosing Pending ml/min Est GFR ( Amer) Pending Est GFR (Non-Af Amer) Pending BUN/Creatinine Ratio Pending (-20) Glucose Pending (70-99) mg/dl POC Glucose (70-99) mg/dl Estimat Average Glucose Hemoglobin A1c Calcium Pending (8.5-10.1) mg/dl Total Bilirubin Pending (0.2-1) mg/dl AST Pending (15-37) U/L ALT Pending (12-78) U/L Alkaline Phosphatase Pending (45-117) U/L Troponin I (0-0.045) ng/ml Total Protein Pending (6.4-8.2) gm/dl Albumin Pending (3.4-5.0) gm/dl Globulin Pending (2.5-4.0) gm/dl Albumin/Globulin Ratio Pending (0.9-2) Lipase (73-393) U/L Blood Type Antibody Screen Crossmatch 07/16/20 07/16/20 07/16/20 Range/Units 08:50 07:45 04:04 WBC (4.8-10.8) K/uL RBC (4.7-6.1) M/uL Hgb (14.0-18.0) g/dL Hct (42-52) % MCV (80-100) fL MCH (25-34) pg MCHC (32-36) g/dL RDW Std Deviation (36.4-46.3) fL RDW Coeff of Chadd (11.5-14.5) % Plt Count (130-400) K/uL MPV (7.4-10.4) fL Immature Gran % (Auto) % Neut % (Auto) % Lymph % (Auto) % Fountain % (Auto) % Eos % (Auto) % Baso % (Auto) % Reticulocyte % (Auto) (0.5-2.0) % Neut # (Auto) (1.4-6.5) K/uL Lymph # (Auto) (1.2-3.4) K/uL Fountain # (Auto) (0.11-0.59) K/uL Eos # (Auto) (0-0.5) K/uL Baso # (Auto) (0-0.2) K/uL Reticulocyte # (0.02-0.10) 10^6/uL Immature Gran # (Auto) (0.00-0.02) K/uL Polychromasia PT (9.0-12.0) Seconds INR (0.9-1.1) APTT (21.0-31.0) Seconds PTT Ratio Sodium (136-145) mmol/L Potassium (3.5-5.1) mmol/L Chloride (98-107) mmol/L Carbon Dioxide (21-32) mmol/L Anion Gap (3-11) BUN (7-18) mg/dl Creatinine (0.6-1.4) mg/dl Est Cr Clr Drug Dosing ml/min Est GFR ( Amer) Est GFR (Non-Af Amer) BUN/Creatinine Ratio (10-20) Glucose (70-99) mg/dl POC Glucose 78 79 (70-99) mg/dl Estimat Average Glucose Pending Hemoglobin A1c Pending Calcium (8.5-10.1) mg/dl Total Bilirubin (0.2-1) mg/dl AST (15-37) U/L ALT (12-78) U/L Alkaline Phosphatase (45-117) U/L Troponin I (0-0.045) ng/ml Total Protein (6.4-8.2) gm/dl Albumin (3.4-5.0) gm/dl Globulin (2.5-4.0) gm/dl Albumin/Globulin Ratio (0.9-2) Lipase (73-393) U/L Blood Type Antibody Screen Crossmatch 07/16/20 07/15/20 07/15/20 Range/Units 00:10 20:41 15:58 WBC (4.8-10.8) K/uL RBC (4.7-6.1) M/uL Hgb (14.0-18.0) g/dL Hct (42-52) % MCV (80-100) fL MCH (25-34) pg MCHC (32-36) g/dL RDW Std Deviation (36.4-46.3) fL RDW Coeff of Chadd (11.5-14.5) % Plt Count (130-400) K/uL MPV (7.4-10.4) fL Immature Gran % (Auto) % Neut % (Auto) % Lymph % (Auto) % Fountain % (Auto) % Eos % (Auto) % Baso % (Auto) % Reticulocyte % (Auto) (0.5-2.0) % Neut # (Auto) (1.4-6.5) K/uL Lymph # (Auto) (1.2-3.4) K/uL Fountain # (Auto) (0.11-0.59) K/uL Eos # (Auto) (0-0.5) K/uL Baso # (Auto) (0-0.2) K/uL Reticulocyte # (0.02-0.10) 10^6/uL Immature Gran # (Auto) (0.00-0.02) K/uL Polychromasia PT (9.0-12.0) Seconds INR (0.9-1.1) APTT (21.0-31.0) Seconds PTT Ratio Sodium (136-145) mmol/L Potassium (3.5-5.1) mmol/L Chloride (98-107) mmol/L Carbon Dioxide (21-32) mmol/L Anion Gap (3-11) BUN (7-18) mg/dl Creatinine (0.6-1.4) mg/dl Est Cr Clr Drug Dosing ml/min Est GFR ( Amer) Est GFR (Non-Af Amer) BUN/Creatinine Ratio (-20) Glucose (70-99) mg/dl POC Glucose 76 76 (70-99) mg/dl Estimat Average Glucose Hemoglobin A1c Calcium (8.5-10.1) mg/dl Total Bilirubin (0.2-1) mg/dl AST (15-37) U/L ALT (12-78) U/L Alkaline Phosphatase (45-117) U/L Troponin I (0-0.045) ng/ml Total Protein (6.4-8.2) gm/dl Albumin (3.4-5.0) gm/dl Globulin (2.5-4.0) gm/dl Albumin/Globulin Ratio (0.9-2) Lipase (73-393) U/L Blood Type B Positive Antibody Screen NEGATIVE Crossmatch See Detail 07/15/20 07/15/20 07/15/20 Range/Units 15:57 15:57 15:57 WBC 5.73 (4.8-10.8) K/uL RBC 2.29 L (4.7-6.1) M/uL Hgb 7.8 L (14.0-18.0) g/dL Hct 24.9 L (42-52) % MCV 108.7 H (80-100) fL MCH 34.1 H (25-34) pg MCHC 31.3 L (32-36) g/dL RDW Std Deviation 71.8 H (36.4-46.3) fL RDW Coeff of Chadd 18.3 H (11.5-14.5) % Plt Count 180 (130-400) K/uL MPV 9.9 (7.4-10.4) fL Immature Gran % (Auto) 1.0 % Neut % (Auto) 54.0 % Lymph % (Auto) 21.3 % Fountain % (Auto) 13.4 % Eos % (Auto) 9.8 % Baso % (Auto) 0.5 % Reticulocyte % (Auto) 8.1 H (0.5-2.0) % Neut # (Auto) 3.09 (1.4-6.5) K/uL Lymph # (Auto) 1.22 (1.2-3.4) K/uL Fountain # (Auto) 0.77 H (0.11-0.59) K/uL Eos # (Auto) 0.56 H (0-0.5) K/uL Baso # (Auto) 0.03 (0-0.2) K/uL Reticulocyte # 0.19 H (0.02-0.10) 10^6/uL Immature Gran # (Auto) 0.06 H (0.00-0.02) K/uL Polychromasia 1+ PT 82.8 H (9.0-12.0) Seconds INR 8.8 H* (0.9-1.1) APTT 50.1 H* (21.0-31.0) Seconds PTT Ratio 1.8 Sodium 143 (136-145) mmol/L Potassium 4.2 (3.5-5.1) mmol/L Chloride 113 H (98-107) mmol/L Carbon Dioxide 26 (21-32) mmol/L Anion Gap 4.0 (3-11) BUN 23 H (7-18) mg/dl Creatinine 1.55 H (0.6-1.4) mg/dl Est Cr Clr Drug Dosing 50.4 ml/min Est GFR ( Amer) 48.6 Est GFR (Non-Af Amer) 42.0 BUN/Creatinine Ratio 15.0 (10-20) Glucose 114 H (70-99) mg/dl POC Glucose (70-99) mg/dl Estimat Average Glucose Hemoglobin A1c Calcium 8.9 (8.5-10.1) mg/dl Total Bilirubin 0.2 (0.2-1) mg/dl AST 26 (15-37) U/L ALT 25 (12-78) U/L Alkaline Phosphatase 41 L (45-117) U/L Troponin I < 0.015 (0-0.045) ng/ml Total Protein 6.6 (6.4-8.2) gm/dl Albumin 3.2 L (3.4-5.0) gm/dl Globulin 3.4 (2.5-4.0) gm/dl Albumin/Globulin Ratio 0.9 (0.9-2) Lipase 406 H (73-393) U/L Blood Type Antibody Screen Crossmatch
[2020-07-16 09:16] LABS: Prothrombin Time 20.6 Seconds (9.0-12.0)
[2020-07-16 09:32] LABS: Albumin Level 3.4 gm/dl (3.4-5.0); BUN Creatinine Ratio 13.4 (10-20); Calcium 8.9 mg/dl (8.5-10.1); Creatinine Clr Calc Pharmacy 60.8 ml/min; Est GFR (African American) 61.3; Est GFR (Non-African American) 52.9
[2020-07-16 09:35] LABS: Albumin Globulin Ratio 0.9 (0.9-2); Bilirubin,Total 0.4 mg/dl (0.2-1); Globulin 3.7 gm/dl (2.5-4.0); Total Protein 7.1 gm/dl (6.4-8.2)
--- NOTE | 2020-07-16 10:11 | Electrocardiogram Report ---
Test Reason : Blood Pressure : / mmHG Vent. Rate : 085 BPM Atrial Rate : 085 BPM P-R Int : 232 ms QRS Dur : 120 ms QT Int : 398 ms P-R-T Axes : 000 -46 071 degrees QTc Int : 473 ms Sinus rhythm with 1st degree A-V block Left anterior fascicular block Left ventricular hypertrophy with QRS widening Abnormal ECG When compared with ECG of 19-APR-2020 07:10, Premature ventricular complexes are no longer Present Confirmed by Jeremiah Nicholas ([id number]) on 07/16/2020 10:10:43 AM Referred By: Kobe aWtkins Confirmed By:Jeremiah Nicholas
[2020-07-16 11:08] LABS: Estimated Average Glucose 88 mg/dl; Hemoglobin A1C 4.7 % (4.5-5.6)
[2020-07-16] MEDS ORDERED: INSULIN ASPART 100 UNITS/ML 3 ML PEN SC SCH ×2 (12:00→21:00)
[2020-07-16] MEDS: MULTIVITAMIN TAB PO SCH (12:23)
[2020-07-16] MEDS: FERROUS SULFATE 325 MG TAB PO SCH ×2 (12:23→21:31)
[2020-07-16] MEDS: FOLIC ACID 1 MG TAB PO SCH (12:23)
[2020-07-16] MEDS: ADVANCED PROBIOTIC 1250 MG CAPSULE PO SCH (12:23)
[2020-07-16] MEDS: PARoxetine HCL 20 MG TAB PO SCH (12:24)
[2020-07-16] MEDS: CYANOCOBALAMIN (VITAMIN B-12) 100 MCG TABLET PO SCH (12:24)
[2020-07-16] MEDS: allopurinoL 300 MG TAB PO SCH (12:24)
[2020-07-16] MEDS: CHOLECALCIFEROL 1,000 UNITS 25 MCG TAB PO SCH (12:24)
[2020-07-16] MEDS: ASCORBIC ACID 500 MG TAB PO SCH (12:24)
[2020-07-16 12:44] LABS: Hematocrit (blood only) 30.8 % (42-52); Hemoglobin 9.6 g/dL (14.0-18.0)
[2020-07-16] MEDS ORDERED: Nursing to Pharmacy Communication SCH (13:00)
--- NOTE | 2020-07-16 13:56 | Pharmacy Report ---
Pharmacy Glycemic Short Note 2 - Date of Service July 16, 2020 - Glycemic Short BSG Results (Last 24 hours): 07/15/20 07/15/20 07/16/20 15:57 20:41 00:10 Glucose 114 H POC Glucose 76 76 07/16/20 07/16/20 07/16/20 04:04 07:45 08:50 Glucose 85 POC Glucose 79 78 07/16/20 11:40 Glucose POC Glucose 110 H OUTPATIENT ANTIDIABETIC REGIMEN: * Tresiba (insulin degludec) 60 units SQ BID * Trulicity 1.5mg SQ weekly on Mondays * NovoLog per scale ACHS ASSESSMENT: 07/16/20 * Blood sugars at goal, fasting 76mg/dl, will further reduce Lantus and CF/CR to prevent hypoglycemia, patient started on clear liquid diet today. * Will place PRN order for Lantus tonight if needs increase. * A1c 4.7%, indicates either hypoglycemia at home or a low glycosylated hemoglobin. 07/15/20 * 80yo T2DM male known to pharmacy from previous admissions/glycemic consults. * Previously excellent glycemic control per A1c in March of this year - but this is outdated. Will re-order per protocol. * Pt typically uses ~ 1/2 of his outpatient insulin doses in house as compared to outpatient dosing. * Pt is NPO secondary to GI bleed - will even further reduce outpatient dosing to ~40% and titrate based on BSG trends. * NovoLog parameters per estimated basal of ~ 40 units/day PLAN FOR INPATIENT GLYCEMIC CONTROL: * Holding outpatient diabetes medications of Tresiba (non-formulary; will sub to Lantus) and Trulicity * Basal insulin * Lantus 30 units SQ daily * Lantus 20 units HS for BSG > 180mg/dl tonight * Bolus insulin * NovoLog per scale ACHS or Q6hrs while NPO * Goal Range: Low 110 mg/dL - High 140 mg/dL * loosen: Correction Factor: 25 mg/dL/unit * loosen: Nutritional / Prandial insulin per carb ratio of 1 unit per 7 gr ams CHO consumed
--- NOTE | 2020-07-16 15:43 | Hospitalist Progress Note ---
Date of Service July 16, 2020 Assessment & Plan (1) Rectal bleeding: with Supratherapeutic INR -As per ED notes on 07/15/2020 "The patient is a 80-year-old male who presented to the emergency department for an evaluation of GI bleeding. The patient's been having GI bleeding for approximately 2 to 4 weeks. He did have a colonoscopy where he had some removal of polyps. He states that ever since that time he is continued to have episodes of bright red blood per rectum. The patient does take Coumadin for valve replacement. He has been having his INR drawn as usual at the Coumadin clinic. He was called today and advised to go to the emergency department because of an INR over 6." -In the ED the INR was 8.8 and patient was given 5 mg of vitamin K in the emergency room. admission hemoglobin 7.8 and patient given 2 units of PRBC with 1 FFP (2) Anemia due to GI blood loss: -improved after blood transfusions on admission -follow the blood counts -Gastroenterology service following the patient (3) NEMESIO (iron deficiency anemia): by history (4) S/P AVR (aortic valve replacement): on chronic Coumadin Anticoagulation -patient reports that he follows with Dr. Salcido from [facility] cardiology and because of history of aortic valve replacement years ago, he has been on coumadin with INR target between 2.5 to 3.5 -patient denies any recent changes in coumadin dosing at home or changes in appetite -at this time because of the GI blood loss, hold the coumadin -holding blood pressure medications in context of blood loss anemia, can continue home metoprolol meducation (5) Diabetes type 2, controlled: -pharmacy glycemic consult Holding outpatient diabetes medications of Trepeter and Sunil; currently on Lantus and sliding scale insulin (6) Dyslipidemia: -10 mg crestor qhs (7) BPH (benign prostatic hyperplasia): -tamsulosin daily (8) JAMES on CPAP: -offer CPAP qhs Full Code DVT prophylaxis: SCDs Admission and Anticipated Discharge Date Admission Date: July 15, 2020 Subjective Patient reports that 2 hours ago his bowel movement still with some blood. He is currently hemodynamically stable. no acute distress. on room air. speaking in full sentences. no dizziness. no headache Review of Systems Review of Systems: All systems reviewed & are unremarkable except as noted in Subjective Physical Exam Constitutional: + obese and comfortable Eyes: PERRL, conjunctivae normal, anicteric sclerae EOM intact bilaterally ENMT: external ear and nose normal, oropharynx normal Neck: normal visual inspection Respiratory: normal respiratory effort, lungs clear to auscultation Cardiovascular: Rate/Rhythm: regular rate Gastrointestinal (Abdomen): normal bowel sounds, soft, nontender, no hepatosplenomegaly Musculoskeletal: Head/Neck/Chest: normocephalic and head atraumatic Neurologic: PERRL, EOMI, accommodation nl, no face palsy, no dysarthria CN's II-XI intact bilaterally Psychiatric: A+Ox3, euthymic affect Results & Data Results & Data ([facility]) Vital Signs (Past 12 Hours) Vital Signs Temp Pulse Pulse Resp BP BP Pulse Ox 07/16/20 11:43 36.3 C L 77 19 126/74 94 07/16/20 08:01 36.4 C L 78 20 133/71 94 07/16/20 07:18 36.4 C L 78 20 133/71 94 07/16/20 06:18 36.5 C 73 20 142/74 H 07/16/20 06:15 36.6 C 79 16 122/70 95 07/16/20 05:18 36.4 C L 71 16 132/71 95 07/16/20 04:45 36.2 C L 78 16 140/64 95 07/16/20 04:30 36.4 C L 78 16 138/72 94 07/16/20 04:25 36.2 C L 82 16 146/70 H 99 07/16/20 04:20 36.2 C L 81 16 144/80 H 95 07/16/20 04:17 36.4 C L 77 16 117/60 96 07/16/20 04:02 36.4 C L 79 18 97
[2020-07-16] MEDS ORDERED: ACETAMINOPHEN 325 MG TAB PO PRN (17:35)
[2020-07-16] MEDS: INSULIN ASPART 100 UNITS/ML 3 ML PEN SC SCH ×2 (18:05→21:06)
[2020-07-16 20:10] LABS: Basophils # (auto) 0.01 K/uL (0-0.2); Basophils % (auto) 0.2 %; Eosinophils # (auto) 0.52 K/uL (0-0.5); Eosinophils % (auto) 8.6 %; Hematocrit (blood only) 29.4 % (42-52); Hemoglobin 9.1 g/dL (14.0-18.0); Immature Granulocytes # (auto) 0.03 K/uL (0.00-0.02); Immature Granulocytes % (auto) 0.5 %; Lymphocytes # (auto) 1.02 K/uL (1.2-3.4); Lymphocytes % (auto) 16.9 %; Mean Corpuscular Hemoglobin 32.5 pg (25-34); Mean Platelet Volume 9.6 fL (7.4-10.4); Monocytes # (auto) 0.83 K/uL (0.11-0.59); Monocytes % (auto) 13.8 %; Neutrophils # (auto) 3.61 K/uL (1.4-6.5); Platelet Count 163 K/uL (130-400); RDW Coefficient of Variation 18.5 % (11.5-14.5); RDW Standard Deviation 70.7 fL (36.4-46.3); White Blood Count 6.02 K/uL (4.8-10.8)
[2020-07-16 20:24] LABS: INR 1.7 (0.9-1.1); Prothrombin Time 17.7 Seconds (9.0-12.0)
[2020-07-16] MEDS: THIAMINE HCL 100 MG TAB PO SCH ×2 (21:32→21:36)
[2020-07-16] MEDS: TAMSULOSIN HCL 0.4 MG CAP PO SCH (21:32)
[2020-07-16] MEDS: ROSUVASTATIN CALCIUM 10 MG TAB PO SCH (21:33)
[2020-07-17 07:29] LABS: Basophils # (auto) 0.02 K/uL (0-0.2); Basophils % (auto) 0.3 %; Eosinophils # (auto) 0.54 K/uL (0-0.5); Eosinophils % (auto) 8.5 %; Hematocrit (blood only) 29.6 % (42-52); Hemoglobin 9.4 g/dL (14.0-18.0); Immature Granulocytes # (auto) 0.04 K/uL (0.00-0.02); Immature Granulocytes % (auto) 0.6 %; Lymphocytes # (auto) 1.28 K/uL (1.2-3.4); Lymphocytes % (auto) 20.2 %; Mean Corpuscular Hemoglobin 33.8 pg (25-34); Mean Corpuscular Hgb Conc 31.8 g/dL (32-36); Mean Corpuscular Volume 106.5 fL (80-100); Mean Platelet Volume 9.6 fL (7.4-10.4); Monocytes # (auto) 0.87 K/uL (0.11-0.59); Monocytes % (auto) 13.7 %; Neutrophils # (auto) 3.59 K/uL (1.4-6.5); Neutrophils % (auto) 56.7 %; Platelet Count 157 K/uL (130-400); RDW Coefficient of Variation 18.5 % (11.5-14.5); RDW Standard Deviation 71.2 fL (36.4-46.3); Red Blood Count 2.78 M/uL (4.7-6.1); White Blood Count 6.34 K/uL (4.8-10.8)
[2020-07-17 07:40] LABS: INR 1.5 (0.9-1.1); Prothrombin Time 15.5 Seconds (9.0-12.0)
[2020-07-17 07:56] LABS: BUN Creatinine Ratio 9.9 (10-20); Calcium 8.5 mg/dl (8.5-10.1); Creatinine Clr Calc Pharmacy 65.4 ml/min; Est GFR (African American) 67.6; Est GFR (Non-African American) 58.3; Potassium 3.7 mmol/L (3.5-5.1)
[2020-07-17 07:58] LABS: Albumin Globulin Ratio 0.8 (0.9-2); Bilirubin,Total 0.5 mg/dl (0.2-1); Globulin 3.7 gm/dl (2.5-4.0); Total Protein 6.7 gm/dl (6.4-8.2)
[2020-07-17] MEDS ORDERED: Heparin IV Standard *NO* Bolus IV SCH (07:59)
[2020-07-17] MEDS ORDERED: WARFARIN SOD 5 MG TAB PO ONE (08:00)
--- NOTE | 2020-07-17 08:11 | Hospitalist Progress Note ---
Date of Service July 17, 2020 Assessment & Plan (1) Rectal bleeding: with Supratherapeutic INR -As per ED notes on 07/15/2020 "The patient is a 80-year-old male who presented to the emergency department for an evaluation of GI bleeding. The patient's been having GI bleeding for approximately 2 to 4 weeks. He did have a colonoscopy where he had some removal of polyps. He states that ever since that time he is continued to have episodes of bright red blood per rectum. The patient does take Coumadin for valve replacement. He has been having his INR drawn as usual at the Coumadin clinic. He was called today and advised to go to the emergency department because of an INR over 6." -In the ED the INR was 8.8 and patient was given 5 mg of vitamin K in the emergency room. admission hemoglobin 7.8 and patient given 2 units of PRBC with 1 FFP (2) Anemia due to GI blood loss: -Hgb improved after blood transfusions on admission -Hgb above 9 -Gastroenterology enterology service evaluated the patient and no colonoscopy in dicated on their assessment for now (3) NEMESIO (iron deficiency anemia): -by history -will also give IV Venofer on 07/17/2020 (4) S/P AVR (aortic valve replacement): on chronic Coumadin Anticoagulation -patient reports that he follows with Dr. Salcido from [facility] cardiology and because of history of aortic valve replacement years ago, he has been on coumadin with INR target between 2.5 to 3.5 -patient denies any recent changes in coumadin dosing at home or changes in appetite -holding blood pressure medications in context of blood loss anemia, can continue home metoprolol medication -INR is less than 2 as of evening of 07/16/2020, and heparin IV with coumadin bridge to be started on 07/17/2020 while monitoring the Hgb closely in context of thromboembolism/stroke prevention from patient's aortic valve replacement. Coumadin 5 mg to be given in AM of 07/17/2020 with the initial heparin and then 5 mg daily starting at 4 PM on 07/17/2020; adjust daily dosing based on future Hgb and INR (5) Diabetes type 2, controlled: -pharmacy glycemic consult Holding outpatient diabetes medications of Tresiba and Trulicity; currently on Lantus and sliding scale insulin (6) Dyslipidemia: -10 mg crestor qhs (7) BPH (benign prostatic hyperplasia): -tamsulosin daily (8) JAMES on CPAP: -offer CPAP qhs Full Code DVT prophylaxis: SCDs with plans for systemic anticoagulation starting on 07/17/2020 Admission and Anticipated Discharge Date Admission Date: July 15, 2020 Subjective No acute distress. patient reports that subjectively the blood per rectum has diminished. Patient is agreeable to start heparin IV and coumadin for thromboembolism/stroke prevention from his aortic valve replacement. denies acute abdomen pain. no chest pain. no palpitations. breathing on room air. no dizziness. no headache Review of Systems Review of Systems: All systems reviewed & are unremarkable except as noted in Subjective Physical Exam Constitutional: + obese and comfortable Eyes: PERRL, conjunctivae normal, anicteric sclerae EOM intact bilaterally ENMT: external ear and nose normal, oropharynx normal Neck: normal visual inspection Respiratory: normal respiratory effort, lungs clear to auscultation Cardiovascular: Rate/Rhythm: regular rate Gastrointestinal (Abdomen): normal bowel sounds, soft, nontender, no hepatosplenomegaly Musculoskeletal: Head/Neck/Chest: normocephalic and head atraumatic Neurologic: PERRL, EOMI, accommodation nl, no face palsy, no dysarthria CN's II-XI intact bilaterally Psychiatric: A+Ox3, euthymic affect Results & Data Results & Data ([facility]) Vital Signs (Past 12 Hours) Vital Signs Temp Pulse Pulse Resp BP Pulse Ox 07/17/20 03:28 36.4 C L 77 18 116/65 94 07/17/20 00:00 36.7 C 77 18 145/64 H 92 07/16/20 23:13 70
[2020-07-17] MEDS ORDERED: IRON SUCROSE 200 MG in 0.9 % SODIUM CHLORIDE 100 ML IV ONE (08:30)
[2020-07-17] MEDS: CYANOCOBALAMIN (VITAMIN B-12) 100 MCG TABLET PO SCH (09:18)
[2020-07-17] MEDS: CHOLECALCIFEROL 1,000 UNITS 25 MCG TAB PO SCH (09:18)
[2020-07-17] MEDS: FOLIC ACID 1 MG TAB PO SCH (09:18)
[2020-07-17] MEDS: FERROUS SULFATE 325 MG TAB PO SCH ×2 (09:20→20:34)
[2020-07-17] MEDS: ADVANCED PROBIOTIC 1250 MG CAPSULE PO SCH (09:20)
[2020-07-17] MEDS: PARoxetine HCL 20 MG TAB PO SCH (09:20)
[2020-07-17] MEDS: INSULIN ASPART 100 UNITS/ML 3 ML PEN SC SCH ×4 (09:22→20:34)
[2020-07-17] MEDS: INSULIN GLARGINE SOLOSTAR 100 UNITS/ML 3 ML PEN SC SCH (09:22)
[2020-07-17] MEDS: METOPROLOL SUCC 50MG EXT REL TAB PO SCH (10:23)
[2020-07-17] MEDS: HEPARIN SODIUM/DEXTROSE 25,000 UNITS/500 ML BAG IV SCH (10:26)
--- NOTE | 2020-07-17 12:12 | Pharmacy Report ---
Pharmacy Glycemic Short Note 2 - Date of Service July 17, 2020 - Glycemic Short BSG Results (Last 24 hours): 07/16/20 07/16/20 07/16/20 16:38 20:48 23:53 Glucose POC Glucose 84 78 83 07/17/20 07/17/20 07/17/20 07:12 08:02 11:51 Glucose 84 POC Glucose 100 H 109 H OUTPATIENT ANTIDIABETIC REGIMEN: * Tresiba (insulin degludec) 60 units SQ BID * Trulicity 1.5mg SQ weekly on Mondays * NovoLog per scale ACHS ASSESSMENT: 07/17/20 * Blood sugars at goal, fasting 84mg/dl, will further reduce Lantus to prevent hypoglycemia, patient still only on clear liquid diet. * Started IV heparin drip mixed in dextrose 07/16/20 * Blood sugars at goal, fasting 76mg/dl, will further reduce Lantus and CF/CR to prevent hypoglycemia, patient started on clear liquid diet today. * Will place PRN order for Lantus tonight if needs increase. * A1c 4.7%, indicates either hypoglycemia at home or a low glycosylated hemoglobin. 07/15/20 * 80yo T2DM male known to pharmacy from previous admissions/glycemic consults. * Previously excellent glycemic control per A1c in March of this year - but this is outdated. Will re-order per protocol. * Pt typically uses ~ 1/2 of his outpatient insulin doses in house as compared to outpatient dosing. * Pt is NPO secondary to GI bleed - will even further reduce outpatient dosing to ~40% and titrate based on BSG trends. * NovoLog parameters per estimated basal of ~ 40 units/day PLAN FOR INPATIENT GLYCEMIC CONTROL: * Holding outpatient diabetes medications of Tresiba (non-formulary; will sub to Lantus) and Trulicity * Basal insulin * decrease: Lantus 25 units SQ daily * Bolus insulin * NovoLog per scale ACHS or Q6hrs while NPO * Goal Range: Low 110 mg/dL - High 140 mg/dL * Correction Factor: 25 mg/dL/unit * Nutritional / Prandial insulin per carb ratio of 1 unit per 7 grams CHO consumed
[2020-07-17] MEDS ORDERED: WARFARIN SOD 5 MG TAB PO SCH (16:00)
[2020-07-17 16:48] LABS: Basophils # (auto) 0.02 K/uL (0-0.2); Basophils % (auto) 0.3 %; Eosinophils # (auto) 0.42 K/uL (0-0.5); Eosinophils % (auto) 6.9 %; Hemoglobin 9.4 g/dL (14.0-18.0); Immature Granulocytes # (auto) 0.03 K/uL (0.00-0.02); Immature Granulocytes % (auto) 0.5 %; Lymphocytes # (auto) 1.05 K/uL (1.2-3.4); Lymphocytes % (auto) 17.4 %; Mean Corpuscular Hemoglobin 33.1 pg (25-34); Mean Corpuscular Hgb Conc 31.3 g/dL (32-36); Mean Corpuscular Volume 105.6 fL (80-100); Mean Platelet Volume 9.6 fL (7.4-10.4); Monocytes # (auto) 0.89 K/uL (0.11-0.59); Monocytes % (auto) 14.7 %; Neutrophils # (auto) 3.64 K/uL (1.4-6.5); Neutrophils % (auto) 60.2 %; Platelet Count 154 K/uL (130-400); RDW Coefficient of Variation 18.2 % (11.5-14.5); RDW Standard Deviation 69.4 fL (36.4-46.3); Red Blood Count 2.84 M/uL (4.7-6.1); White Blood Count 6.05 K/uL (4.8-10.8)
[2020-07-17 17:07] LABS: Partial Thromboplastin Ratio 2.1
[2020-07-17 17:14] LABS: Partial Thromboplastin Time 58.1 Seconds (21.0-31.0)
[2020-07-17] MEDS: THIAMINE HCL 100 MG TAB PO SCH (20:33)
[2020-07-17] MEDS: TAMSULOSIN HCL 0.4 MG CAP PO SCH (20:34)
[2020-07-17] MEDS: ROSUVASTATIN CALCIUM 10 MG TAB PO SCH (20:34)
[2020-07-18] MEDS: HEPARIN SODIUM/DEXTROSE 25,000 UNITS/500 ML BAG IV SCH (01:03)
[2020-07-18 07:06] LABS: Basophils # (auto) 0.02 K/uL (0-0.2); Basophils % (auto) 0.3 %; Eosinophils % (auto) 7.9 %; Hematocrit (blood only) 30.3 % (42-52); Hemoglobin 9.5 g/dL (14.0-18.0); Immature Granulocytes # (auto) 0.02 K/uL (0.00-0.02); Immature Granulocytes % (auto) 0.3 %; Lymphocytes # (auto) 1.18 K/uL (1.2-3.4); Lymphocytes % (auto) 18.7 %; Mean Corpuscular Hemoglobin 33.5 pg (25-34); Mean Corpuscular Hgb Conc 31.4 g/dL (32-36); Mean Corpuscular Volume 106.7 fL (80-100); Mean Platelet Volume 9.7 fL (7.4-10.4); Monocytes # (auto) 0.97 K/uL (0.11-0.59); Monocytes % (auto) 15.3 %; Neutrophils # (auto) 3.63 K/uL (1.4-6.5); Neutrophils % (auto) 57.5 %; Platelet Count 152 K/uL (130-400); RDW Standard Deviation 68.6 fL (36.4-46.3); Red Blood Count 2.84 M/uL (4.7-6.1); White Blood Count 6.32 K/uL (4.8-10.8)
[2020-07-18 07:28] LABS: INR 1.3 (0.9-1.1); Partial Thromboplastin Ratio 2.3
[2020-07-18 07:30] LABS: Partial Thromboplastin Time 63.3 Seconds (21.0-31.0)
[2020-07-18] MEDS: FERROUS SULFATE 325 MG TAB PO SCH ×2 (08:48→20:32)
[2020-07-18] MEDS: FOLIC ACID 1 MG TAB PO SCH (08:48)
[2020-07-18] MEDS: MULTIVITAMIN TAB PO SCH (08:49)
[2020-07-18] MEDS: ADVANCED PROBIOTIC 1250 MG CAPSULE PO SCH (08:49)
[2020-07-18] MEDS: PARoxetine HCL 20 MG TAB PO SCH (08:49)
[2020-07-18] MEDS: CYANOCOBALAMIN (VITAMIN B-12) 100 MCG TABLET PO SCH (08:50)
[2020-07-18] MEDS: METOPROLOL SUCC 50MG EXT REL TAB PO SCH (08:50)
[2020-07-18] MEDS: ASCORBIC ACID 500 MG TAB PO SCH (08:50)
[2020-07-18] MEDS: CHOLECALCIFEROL 1,000 UNITS 25 MCG TAB PO SCH (08:51)
[2020-07-18] MEDS: allopurinoL 300 MG TAB PO SCH (08:51)
[2020-07-18] MEDS: INSULIN ASPART 100 UNITS/ML 3 ML PEN SC SCH ×4 (08:51→21:24)
[2020-07-18] MEDS: INSULIN GLARGINE SOLOSTAR 100 UNITS/ML 3 ML PEN SC SCH (08:59)
--- NOTE | 2020-07-18 11:46 | Hospitalist Progress Note ---
Date of Service July 18, 2020 Assessment & Plan (1) Rectal bleeding: with Supratherapeutic INR -As per ED notes on 07/15/2020 "The patient is a 80-year-old male who presented to the emergency department for an evaluation of GI bleeding. The patient's been having GI bleeding for approximately 2 to 4 weeks. He did have a colonoscopy where he had some removal of polyps. He states that ever since that time he is continued to have episodes of bright red blood per rectum. The patient does take Coumadin for valve replacement. He has been having his INR drawn as usual at the Coumadin clinic. He was called today and advised to go to the emergency department because of an INR over 6." -In the ED the INR was 8.8 and patient was given 5 mg of vitamin K in the emergency room. admission hemoglobin 7.8 and patient given 2 units of PRBC with 1 FFP (2) Anemia due to GI blood loss: -Hgb improved after blood transfusions on admission -Hgb above 9 -Gastroenterology enterology service evaluated the patient and no colonoscopy in dicated on their assessment for now (3) NEMESIO (iron deficiency anemia): -by history -gave IV Venofer on 07/17/2020 (4) S/P AVR (aortic valve replacement): on chronic Coumadin Anticoagulation -patient reports that he follows with Dr. Salcido from [facility] cardiology and because of history of aortic valve replacement years ago, he has been on coumadin with INR target between 2.5 to 3.5 -patient denies any recent changes in coumadin dosing at home or changes in appetite -holding blood pressure medications in context of blood loss anemia, can continue home metoprolol medication -his outpatient weekly coumadin dosing is 50 mg total per week (he alternates between 5 mg and 10 mg daily and notes the the 5 mg dosing is 4 times in and week and the 10 mg dose is 3 times in a week) -INR is less than 2 as of evening of 07/16/2020, and heparin IV with coumadin bridge to be started on 07/17/2020 while monitoring the Hgb closely in context of thromboembolism/stroke prevention from patient's aortic valve replacement. 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 Hemoglobin is still stable despite this as 9.5 and INR is 1.3. Despite stable hemoglobin and stable blood pressure, would hold heparin IV for now until further bowel movements. should be safe to continue coumadin. 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 Hemoglobin is still stable despite this as 9.5 and INR is 1.3. Despite stable hemoglobin and stable blood pressure, would hold heparin IV for now until further bowel movements. should be safe to continue coumadin. will give 6 mg daily starting at 4 PM on 07/18/2020. no abdomen pain. no chest pain. no shortness of breath. no dizziness. no headache Review of Systems Review of Systems: All systems reviewed & are unremarkable except as noted in Subjective Physical Exam Constitutional: + obese and comfortable Eyes: PERRL, conjunctivae normal, anicteric sclerae EOM intact bilaterally ENMT: external ear and nose normal, oropharynx normal Neck: normal visual inspection Respiratory: normal respiratory effort, lungs clear to auscultation Cardiovascular: Rate/Rhythm: regular rate Gastrointestinal (Abdomen): normal bowel sounds, soft, nontender, no hepatosplenomegaly Musculoskeletal: Head/Neck/Chest: normocephalic and head atraumatic Neurologic: PERRL, EOMI, accommodation nl, no face palsy, no dysarthria CN's II-XI intact bilaterally Psychiatric: A+Ox3, euthymic affect Results & Data Results & Data ([facility]) Vital Signs (Past 12 Hours) Vital Signs Temp Pulse Pulse Resp BP BP Pulse Ox 07/18/20 10:02 79 07/18/20 10:00 37.7 C H 89 20 137/67 94 07/18/20 04:02 36.8 C 83 18 164/80 H 93 07/18/20 00:00 78 07/17/20 23:42 36.4 C L 76 16 142/83 H 92
[2020-07-18] MEDS ORDERED: WARFARIN SOD 6 MG TAB PO SCH (16:00)
[2020-07-18] MEDS: THIAMINE HCL 100 MG TAB PO SCH (20:31)
[2020-07-18] MEDS: TAMSULOSIN HCL 0.4 MG CAP PO SCH (20:32)
[2020-07-18] MEDS: ROSUVASTATIN CALCIUM 10 MG TAB PO SCH (20:32)
[2020-07-19 07:26] LABS: Basophils # (auto) 0.01 K/uL (0-0.2); Basophils % (auto) 0.2 %; Eosinophils # (auto) 0.42 K/uL (0-0.5); Eosinophils % (auto) 7.7 %; Hematocrit (blood only) 31.9 % (42-52); Hemoglobin 9.7 g/dL (14.0-18.0); Immature Granulocytes # (auto) 0.02 K/uL (0.00-0.02); Immature Granulocytes % (auto) 0.4 %; Lymphocytes # (auto) 0.94 K/uL (1.2-3.4); Lymphocytes % (auto) 17.3 %; Mean Corpuscular Hemoglobin 32.4 pg (25-34); Mean Corpuscular Hgb Conc 30.4 g/dL (32-36); Mean Corpuscular Volume 106.7 fL (80-100); Monocytes # (auto) 0.83 K/uL (0.11-0.59); Monocytes % (auto) 15.3 %; Neutrophils # (auto) 3.21 K/uL (1.4-6.5); Neutrophils % (auto) 59.1 %; Platelet Count 156 K/uL (130-400); RDW Coefficient of Variation 17.4 % (11.5-14.5); RDW Standard Deviation 68.1 fL (36.4-46.3); Red Blood Count 2.99 M/uL (4.7-6.1); White Blood Count 5.43 K/uL (4.8-10.8)
[2020-07-19 07:37] LABS: INR 1.3 (0.9-1.1); Partial Thromboplastin Ratio 1.1; Partial Thromboplastin Time 29.3 Seconds (21.0-31.0); Prothrombin Time 13.5 Seconds (9.0-12.0)
[2020-07-19] MEDS: PARoxetine HCL 20 MG TAB PO SCH (07:59)
[2020-07-19] MEDS: FOLIC ACID 1 MG TAB PO SCH (07:59)
[2020-07-19] MEDS: FERROUS SULFATE 325 MG TAB PO SCH (07:59)
[2020-07-19] MEDS: CYANOCOBALAMIN (VITAMIN B-12) 100 MCG TABLET PO SCH (08:00)
[2020-07-19] MEDS: ADVANCED PROBIOTIC 1250 MG CAPSULE PO SCH (08:00)
[2020-07-19] MEDS: CHOLECALCIFEROL 1,000 UNITS 25 MCG TAB PO SCH (08:00)
[2020-07-19] MEDS: METOPROLOL SUCC 50MG EXT REL TAB PO SCH (08:01)
[2020-07-19] MEDS: INSULIN ASPART 100 UNITS/ML 3 ML PEN SC SCH (08:03)
--- NOTE | 2020-07-19 08:46 | Hospitalist Progress Note ---
Date of Service July 19, 2020 Assessment & Plan (1) Rectal bleeding: with Supratherapeutic INR -As per ED notes on 07/15/2020 "The patient is a 80-year-old male who presented to the emergency department for an evaluation of GI bleeding. The patient's been having GI bleeding for approximately 2 to 4 weeks. He did have a colonoscopy where he had some removal of polyps. He states that ever since that time he is continued to have episodes of bright red blood per rectum. The patient does take Coumadin for valve replacement. He has been having his INR drawn as usual at the Coumadin clinic. He was called today and advised to go to the emergency department because of an INR over 6." -In the ED the INR was 8.8 and patient was given 5 mg of vitamin K in the emergency room. admission hemoglobin 7.8 and patient given 2 units of PRBC with 1 FFP (2) Anemia due to GI blood loss: -Hgb improved after blood transfusions on admission -Hgb above 9 -Gastroenterology enterology service evaluated the patient and no colonoscopy in dicated on their assessment (consider outpatient Colorectosurgical evaluation for anoscopy and hemorrhoidal banding if indicated as assessed by welt stitcher Dr. Angeles when patient was hospitalized during this stay) because they deem that the GI bleed likely from anorectal source or hemorrhoids (3) NEMESIO (iron deficiency anemia): -by history -gave IV Venofer on 07/17/2020 (4) S/P AVR (aortic valve replacement): on chronic Coumadin Anticoagulation -patient reports that he follows with Dr. Salcido from [facility] cardiology and because of history of aortic valve replacement years ago, he has been on coumadin with INR target between 2.5 to 3.5 -patient denies any recent changes in coumadin dosing at home or changes in appetite -holding blood pressure medications in context of blood loss anemia, can continue home metoprolol medication -his outpatient weekly coumadin dosing is 50 mg total per week (he alternates between 5 mg and 10 mg daily and notes the the 5 mg dosing is 4 times in and week and the 10 mg dose is 3 times in a week) -INR is less than 2 as of evening of 07/16/2020, and heparin IV with coumadin bridge to be started on 07/17/2020 while monitoring the Hgb closely in context of thromboembolism/stroke prevention from patient's aortic valve replacement. 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 Hemoglobin is still stable despite this as 9.5 and INR is 1.3. Despite stable hemoglobin and stable blood pressure, would hold heparin IV for now until further bowel movements. should be safe to continue coumadin. will give 6 mg daily starting at 4 PM on 07/18/2020 07/19/2020 patient reports diminished amount of visible blood with last bowel movement and he feels subjectively well. no abdomen pain. no chest pain. no shortness of breath. no dizziness. no headache. no nausea. Hgb 9.7 g/dl and INR 1.3 on 07/19/2020. Patient expressed that he did not want further IV heparin and inpatient monitoring in regards to anticoagulation for the aortic valve replacement. He expresses understanding that with subtherapeutic INR that can be at risk of blood clots from the aortic valve discharge medication of coumadin (warfarin) 6 mg daily x 10 days sent electronically to [facility] [address] [place] [address]. Hospitalist called [facility] appointment line [phone] to try to get close follow ups with primary care doctor and coumadin clinic monitoring discharge to home at request of patient, patient plans to discussed with primary care doctor in regards for future assessments for a colorectal surgeon (consider outpatient Colorectosurgical evaluation for anoscopy and hemorrhoidal banding if indicated as assessed by welt stitcher Dr. Angeles when patient was hospitalized during this stay) appointments 07/20/2020 11:00 AM Provider Kobe Watkins DO Department Family Practice [facility] 07/30/2020 11:40 AM Provider Nohemi Calloway DO Department Pulmonary Medicine, [facility] 08/13/2020 11:20 AM Provider Maren Yepez Sp Pharmacist1 Department Pharmacy, [facility] (5) Diabetes type 2, controlled: -pharmacy glycemic consult managed the diabetes by holding the medications of Tresiba and Trulicity and substituted with Lantus and sliding scale insulin -patient can resume home dose diabetes medications on discharge and follow up with primary care doctor (6) Dyslipidemia: -10 mg crestor qhs (7) BPH (benign prostatic hyperplasia): -tamsulosin daily (8) JAMES on CPAP: -offer CPAP qhs Full Code Admission and Anticipated Discharge Date Admission Date: July 15, 2020 Subjective 07/19/2020 patient reports diminished amount of visible blood with last bowel movement and he feels subjectively well. no abdomen pain. no chest pain. no shortness of breath. no dizziness. no headache. no nausea. Hgb 9.7 g/dl and INR 1.3 on 07/19/2020. Patient expressed that he did not want further IV heparin and inpatient monitoring in regards to anticoagulation for the aortic valve replacement. He expresses understanding that with subtherapeutic INR that can be at risk of blood clots from the aortic valve discharge medication of coumadin (warfarin) 6 mg daily x 10 days sent electronic ally to [facility] [address] [place] [address]. Hospitalist called [facility] appointment line [phone] to try to get close follow ups with primary care doctor and coumadin clinic monitoring discharge to home at request of patient, patient plans to discussed with primary care doctor in regards for future assessments for a colorectal surgeon (consider outpatient Colorectosurgical evaluation for anoscopy and hemorrhoidal banding if indicated as assessed by welt stitcher Dr. Angeles when patient was hospitalized during this stay) Review of Systems Review of Systems: All systems reviewed & are unremarkable except as noted in Subjective Physical Exam Constitutional: + obese and comfortable Eyes: PERRL, conjunctivae normal, anicteric sclerae EOM intact bilaterally ENMT: external ear and nose normal, oropharynx normal Neck: normal visual inspection Respiratory: normal respiratory effort, lungs clear to auscultation Cardiovascular: Rate/Rhythm: regular rate Gastrointestinal (Abdomen): normal bowel sounds, soft, nontender, no hepatosplenomegaly Musculoskeletal: Head/Neck/Chest: normocephalic and head atraumatic Neurologic: PERRL, EOMI, accommodation nl, no face palsy, no dysarthria CN's II-XI intact bilaterally Psychiatric: A+Ox3, euthymic affect Results & Data Results & Data ([facility]) Vital Signs (Past 12 Hours) Vital Signs Temp Pulse Resp BP Pulse Ox 07/19/20 07:04 36.5 C 77 18 110/63 91 07/19/20 03:59 36.8 C 73 18 119/73 95 07/18/20 23:14 36.4 C L 73 16 152/70 H 93
--- NOTE | 2020-07-19 08:51 | Discharge Summary ---
Date of Service July 19, 2020 Admission HPI Per Admitting Provider 80-year-old male who had a colonoscopy [address] Murillo and since then has had sporadic bleeding from the rectum bright red. He says it every time he goes to the bathroom there is bright red blood in the toilet and he drips bright red blood for a short amount of time after each defecation. He went to Coumadin clinic today and his INR was 8 and his hemoglobin was 6.8. Dr. Kobe Ewing told him to go to the emergency room. Principal Diagnosis Rectal bleeding with Supratherapeutic INR; Anemia due to GI blood loss S/P AVR (aortic valve replacement) on chronic Coumadin Anticoagulation Diabetes mellitus type 2 with custodial current use of insulin Discharge Exam Constitutional + obese and comfortable Eyes PERRL, conjunctivae normal, anicteric sclerae EOM intact bilaterally ENMT external ear and nose normal, oropharynx normal Neck normal visual inspection Respiratory normal respiratory effort, lungs clear to auscultation Cardiovascular Rate/Rhythm: regular rate Gastrointestinal (Abdomen) normal bowel sounds, soft, nontender, no hepatosplenomegaly Musculoskeletal Head/Neck/Chest: normocephalic and head atraumatic Neurologic PERRL, EOMI, accommodation nl, no face palsy, no dysarthria CN's II-XI intact bilaterally Psychiatric A+Ox3, euthymic affect Discharge Data Allergies Allergy/AdvReac Type Severity Reaction Status Date / Time No Known Allergies Allergy Verified 07/15/20 17:55 Consultations 07/15/20 17:10 ED Decision to Admit Stat 07/15/20 19:22 Consult Gastroenterology Routine Hospital Course (1) Rectal bleeding: with Supratherapeutic INR -As per ED notes on 07/15/2020 "The patient is a 80-year-old male who presented to the emergency department for an evaluation of GI bleeding. The patient's been having GI bleeding for approximately 2 to 4 weeks. He did have a colonoscopy where he had some removal of polyps. He states that ever since that time he is continued to have episodes of bright red blood per rectum. The patient does take Coumadin for valve replacement. He has been having his INR drawn as usual at the Coumadin clinic. He was called today and advised to go to the emergency department because of an INR over 6." -In the ED the INR was 8.8 and patient was given 5 mg of vitamin K in the emergency room. admission hemoglobin 7.8 and patient given 2 units of PRBC with 1 FFP (2) Anemia due to GI blood loss: -Hgb improved after blood transfusions on admission -Hgb above 9 -Gastroenterology enterology service evaluated the patient and no colonoscopy indicated on their assessment (consider outpatient Colorectosurgical evaluation for anoscopy and hemorrhoidal banding if indicated as assessed by child nutrition director Dr. Angeles when patient was hospitalized during this stay) because they deem that the GI bleed likely from anorectal source or hemorrhoids (3) NEMESIO (iron deficiency anemia): -by history -gave IV Venofer on 07/17/2020 (4) S/P AVR (aortic valve replacement): on chronic Coumadin Anticoagulation -patient reports that he follows with Dr. Salcido from [facility] cardiology and because of history of aortic valve replacement years ago, he has been on coumadin with INR target between 2.5 to 3.5 -patient denies any recent changes in coumadin dosing at home or changes in appetite -holding blood pressure medications in context of blood loss anemia, can continue home metoprolol medication -his outpatient weekly coumadin dosing is 50 mg total per week (he alternates between 5 mg and 10 mg daily and notes the the 5 mg dosing is 4 times in and week and the 10 mg dose is 3 times in a week) -INR is less than 2 as of evening of 07/16/2020, and heparin IV with coumadin bridge to be started on 07/17/2020 while monitoring the Hgb closely in context of thromboembolism/stroke prevention from patient's aortic valve replacement. 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 Hemoglobin is still stable despite this as 9.5 and INR is 1.3. Despite stable hemoglobin and stable blood pressure, would hold heparin IV for now until further bowel movements. should be safe to continue coumadin. will give 6 mg daily starting at 4 PM on 07/18/2020 07/19/2020 patient reports diminished amount of visible blood with last bowel movement and he feels subjectively well. no abdomen pain. no chest pain. no shortness of breath. no dizziness. no headache. no nausea. Hgb 9.7 g/dl and INR 1.3 on 07/19/2020. Patient expressed that he did not want further IV heparin and inpatient monitoring in regards to anticoagulation for the aortic valve replacement. He expresses understanding that with subtherapeutic INR that can be at risk of blood clots from the aortic valve discharge medication of coumadin (warfarin) 6 mg daily x 10 days sent electronically to [facility] [address] [place] [facility] [place] [address]. Hospitalist called [facility] appointment line [phone] to try to get close f ollow ups with primary care doctor and coumadin clinic monitoring discharge to home at request of patient, patient plans to discussed with primary care doctor in regards for future assessments for a colorectal surgeon (consider outpatient Colorectosurgical evaluation for anoscopy and hemorrhoidal banding if indicated as assessed by child nutrition director Dr. Angeles when patient was hospitalized during this stay) appointments 07/20/2020 11:00 AM Provider Kobe Watkins DO Department Family Practice [facility] 07/30/2020 11:40 AM Provider Nohemi Calloway DO Department Pulmonary Medicine, [facility] 08/13/2020 11:20 AM Provider [facility] Pharmacist1 Department Pharmacy, [facility] (5) Diabetes type 2, controlled: -pharmacy glycemic consult managed the diabetes by holding the medications of Tresiba and Trulicity and substituted with Lantus and sliding scale insulin -patient can resume home dose diabetes medications on discharge and follow up with primary care doctor (6) Dyslipidemia: -10 mg crestor qhs (7) BPH (benign prostatic hyperplasia): -tamsulosin daily (8) JAMES on CPAP: -offer CPAP qhs Full Code Total Time Total Time Spent Total Time Spent (In Minutes): 40 minutes Total Time Includes: Examination of the Patient, Discharge Planning, Medication Reconciliation and Communication With Other Providers Discharge Plan Discharge Items Patient Disposition: Home - Self-Care Reason For Visit: GI BLEED Discharge Diagnosis: Rectal bleeding with Supratherapeutic INR; Anemia due to GI blood loss S/P AVR (aortic valve replacement) on chronic Coumadin Anticoagulation 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 Patient expressed that he did not want further IV heparin and inpatient monitoring in regards to anticoagulation for the aortic valve replacement. He expresses understanding that with subtherapeutic INR that can be at risk of blood clots from the aortic valve discharge medication of coumadin (warfarin) 6 mg daily x 10 days sent electronically to [facility] [address] [place] [facility] [place] [address]. Hospitalist called [facility] appointment line [phone] to try to get close follow ups with primary care doctor and coumadin clinic monitoring discharge to home at request of patient, patient plans to discussed with primary care doctor in regards for future assessments for a colorectal surgeon (consider outpatient Colorectosurgical evaluation for anoscopy and hemorrhoidal banding if indicated as assessed by child nutrition director Dr. Angeles when patient was hospitalized during this stay) appointments 07/20/2020 11:00 AM Provider Kobe Watkins DO Department Family Practice [facility] 07/30/2020 11:40 AM Provider Nohemi Calloway DO Department Pulmonary Medicine, [facility] 08/13/2020 11:20 AM Provider [facility] Pharmacist1 Department Pharmacy, [facility] [employer] Provider Instructions: consider outpatient Colorectosurgical evaluation for anoscopy and hemorrhoidal banding if indicated as assessed by child nutrition director Dr. Angeles when patient was hospitalized during this stay Pending Studies at Discharge: No Stand-Alone Forms: My PrivacyProtector, Smoking Cessation Medications and DC Order Prescriptions: Continued Tresiba FlexTouch U-100 100 unit/mL (3 mL) Insulin Pen 60 unit SUBCUT BID RF: 0 trospium 60 mg Capsule,Extended Release 24hr 60 mg PO QAM RF: 0 Probiotic 3 billion cell Capsule 3,000 mmu cells PO DAILY RF: 0 Trulicity 1.5 mg/0.5 mL pen injector 1.5 mg SUBCUT WK RF: 0 tamsulosin [Flomax] 0.4 mg Capsule 0.4 mg PO HS RF: 0 lorazepam [Ativan] 1 mg Tablet 1 mg PO TID PRN (Reason: Anxiety) RF: 0 metoprolol succinate [Toprol XL] 50 mg tablet extended release 24 hr 50 mg PO QAM RF: 0 beta carotene 25,000 unit Capsule 25,000 unit PO DAILY RF: 0 clobetasol 0.05 % Cream 1 applic TOPICAL BID PRN (Reason: ..) RF: 0 vitamin B complex Tablet 1 tab PO DAILY RF: 0 Probiotic 3 billion cell Capsule 0 mmu cells PO DAILY RF: 0 cholecalciferol (vitamin D3) 25 mcg (1,000 unit) Tablet 25 mcg PO DAILY RF: 0 multivitamin Tablet 1 tab PO Q OTHER DAY RF: 0 amoxicillin 500 mg capsule 2,000 mg PO UD RF: 0 thiamine HCl (vitamin B1) [Vitamin B-1] 100 mg Tablet 100 mg PO QPM RF: 0 ascorbic acid (vitamin C) [Vitamin C] 500 mg Tablet 500 mg PO Q OTHER DAY RF: 0 paroxetine HCl [Paxil] 20 mg tablet 20 mg PO QAM RF: 0 ferrous sulfate 325 mg (65 mg iron) Tablet 325 mg PO BID RF: 0 betamethasone dipropionate 0.05 % cream 1 applic Topical BID PRN (Reason: FLARE UPS) RF: 0 folic acid 1 mg tablet 1 mg PO QAM RF: 0 allopurinol [Zyloprim] 300 mg tablet 300 mg PO Q OTHER DAY RF: 0 lisinopril 2.5 mg tablet 2.5 mg PO QPM RF: 0 insulin aspart U-100 [Novolog Flexpen U-100 Insulin] 100 unit/mL insulin pen 0 unit subcut TIDM RF: 0 rosuvastatin [Crestor] 10 mg Tablet 10 mg PO QPM RF: 0 fluocinolone and shower cap [Delmar-Smoothe/FS Scalp Oil] 0.01 % oil 1 applic Topical UD PRN (Reason: Rash) RF: 0 omega 8-pfp-sxz-fish oil [Fish Oil] 1,000 mg (120 mg-180 mg) Capsule 1 cap PO Q OTHER DAY RF: 0 Discontinued warfarin 5 mg tablet 5 - 10 mg PO .DAILY UD RF: 0 Discharge Orders: Discharge Order (Routine); Ordered 07/19/20 Ordered By: Louie Kapadia Admission Data Admit Date/Time: 07/15/20 18:00 Attending Provider: Louie Kapadia Admit Provider: Louie Garcia Primary Care Provider: Kobe Watkins Other Providers: Louie Garcia ; Duarte Hanson ; Ayesha Aguilar ; Farhad Marino ; Vanessa Gallardo ; Orlando Yeh ; Law Murillo ; Margaret Downey ; Jeremiah Solis ; Rodrigue Gonzalez ; Carmen Sue ; Gladys Bradford ; Ashley Templeton ; Patti Angeles ; Chacha Ribeiro
[2020-07-19] MEDS ORDERED: INSULIN GLARGINE SOLOSTAR 100 UNITS/ML 3 ML PEN SC SCH (09:00)
[2020-07-19] MEDS ORDERED: NON-FORMULARY MEDICATION (Dulaglutide [Trulicity] 1.5 MG) SQ SCH (17:46)
== END 2020-07-19 10:21 | disposition home or self-care (01) | DRG 379 ==
LOC: ED 15:16 → SUATTDRO 18:00 → 2S 18:00

== ENCOUNTER 2020-09-11 08:50 | Inpatient (IN) ==
[2020-09-11] MEDS ORDERED: IOVERSOL 100ml IV ONE (08:59)
--- NOTE | 2020-09-11 09:11 | CT Scan Report ---
CT SCAN OF THE BRAIN WITHOUT IV CONTRAST CLINICAL HISTORY: Strokelike symptoms. COMPARISON STUDY: CT of the brain dated 04/17/2020. TECHNIQUE: Unenhanced axial CT scan of the brain is performed from the vertex to the skull base. A do se lowering technique was utilized adhering to the principles of ALARA. FINDINGS: Brain parenchyma: There are age-related involutional changes noting mild subcortical and periventric ular microangiopathic change. There is no hemorrhage, mass effect, or evidence of acute territorial i schemia by CT criteria. Garza-white matter differentiation is preserved. No extra-axial fluid collecti on is seen. Ventricles, sulci, cisterns: Prominent secondary to involutional change. Intracranial vasculature: There is atherosclerotic calcification of the cavernous carotid and vertebr al arteries. Calvarium: Unremarkable. Sinuses and mastoids: The visualized paranasal sinuses are clear. The mastoid air cells are well pneu matized. Orbits: The bony orbits are grossly intact. There are bilateral ocular lens implants. IMPRESSION: There is no hemorrhage, mass effect, or evidence of acute territorial ischemia by CT natalio alanis. ACT 112: Negative or not required by law. Electronically signed by: Gabriele March M.D. 09/11/2020 9:09 AM
[2020-09-11] MEDS ORDERED: TPA for Stroke IV STA (09:21)
--- NOTE | 2020-09-11 09:25 | CT Scan Report ---
CT ANGIOGRAM OF THE BRAIN; CT ANGIOGRAM OF THE NECK CLINICAL HISTORY: Strokelike symptoms. COMPARISON STUDY: Unenhanced CT of the brain performed concurrently on 09/11/2020. TECHNIQUE: Following the IV administration of 119 of Optiray 320, CT angiogram of the head and neck w as performed from the aortic arch to the vertex. Images are reviewed in the axial, sagittal, and noah nal planes. 3-D MIPS images are created and assessed. IV contrast was administered without complicati on. All measurements were calculated based on NASCET criteria. A dose lowering technique was utilize d adhering to the principles of ALARA. CT DOSE: 1588.32 mGy.cm FINDINGS: Brain parenchyma: There is age-related involutional change noting mild subcortical and periventricula r microangiopathic disease. There is no hemorrhage, mass effect, or evidence of acute territorial isc hemia by CT criteria. There is no evidence of enhancing mass lesion on the angiogram phase images. Th e ventricles, sulci, and cisterns are prominent secondary to involutional change. Garza-white matter d ifferentiation is preserved. No extra-axial fluid collection is seen. Thoracic aorta: There is atherosclerotic calcification of the thoracic aorta. Visualized portions of the thoracic aorta are normal in caliber. The aortic arch demonstrates standard 3-vessel anatomy. Right carotid arterial system: The right common carotid artery is widely patent, as are the right int ernal and external carotid arteries. Calcified plaque is noted in the carotid bulb. Left carotid arterial system: The left common carotid artery is widely patent, as are the left internal communications writer al and external carotid arteries. Calcified plaque is noted in the carotid bulb. Vertebral arteries: Subclavian arteries: Widely patent bilaterally. Intracranial vasculature: There is evidence carotid calcification of the cavernous carotid and verteb ral arteries. There is a large right posterior communicating artery. The internal carotid arteries ar e patent at the skull base, as are the anterior and middle cerebral arteries bilaterally. The vertebr obasilar system and posterior cerebral arteries are widely patent. The vertebral arteries are codomin ant. There is no aneurysm, high-grade stenosis, or focal vessel cut off seen throughout the intracran ial circulation. Jugular veins: Patent bilaterally. Dural sinuses: Patent. Upper chest: Midline sternotomy wires are noted. Partially visualized upper lobe lung parenchyma appe ars clear. Soft tissues: The visualized pharyngeal soft tissues are normal in appearance noting angiographic pha se technique. The oropharyngeal airway appears widely patent. The salivary and thyroid glands are nor mal in appearance. No cervical lymphadenopathy is seen. Skeletal structures: The skeletal structures are osteopenic. The calvarium appears intact. The cervic al spine is maintained noting multilevel spondylosis. No lytic or blastic lesion is seen. Orbits: The bony orbits are intact. Orbital contents are normal as imaged noting bilateral ocular enzo s implants. Sinuses and mastoids: The paranasal sinuses are clear. The mastoid air cells are well pneumatized. IMPRESSION: 1. There is no hemorrhage, mass effect, or evidence of acute territorial ischemia by CT criteria noti ng angiographic phase technique. 2. Unremarkable CT angiogram of the brain. 3. Unremarkable CT angiogram of the neck. ACT 112: Negative or not required by law. Electronically signed by: Gabriele March M.D. 09/11/2020 9:23 AM
[2020-09-11 09:28] LABS: Basophils # (auto) 0.03 K/uL (0-0.2); Basophils % (auto) 0.4 %; Eosinophils # (auto) 0.55 K/uL (0-0.5); Eosinophils % (auto) 7.7 %; Hematocrit (blood only) 35.3 % (42-52); Hemoglobin 11.4 g/dL (14.0-18.0); Immature Granulocytes # (auto) 0.05 K/uL (0.00-0.02); Immature Granulocytes % (auto) 0.7 %; Lymphocytes # (auto) 1.17 K/uL (1.2-3.4); Lymphocytes % (auto) 16.4 %; Mean Corpuscular Hemoglobin 32.3 pg (25-34); Mean Corpuscular Hgb Conc 32.3 g/dL (32-36); Mean Platelet Volume 10.3 fL (7.4-10.4); Monocytes # (auto) 1.04 K/uL (0.11-0.59); Monocytes % (auto) 14.6 %; Neutrophils # (auto) 4.29 K/uL (1.4-6.5); Neutrophils % (auto) 60.2 %; Platelet Count 155 K/uL (130-400); RDW Coefficient of Variation 14.2 % (11.5-14.5); RDW Standard Deviation 51.3 fL (36.4-46.3); Red Blood Count 3.53 M/uL (4.7-6.1); White Blood Count 7.13 K/uL (4.8-10.8)
--- NOTE | 2020-09-11 09:28 | XRay Report ---
SINGLE VIEW CHEST CLINICAL HISTORY: Strokelike symptoms. FINDINGS: An AP, portable, upright chest radiograph is compared to study dated 07/15/2020. The examin ation is degraded by portable technique, apical lordotic positioning, and patient rotation. The patie nt is status post midline sternotomy. The heart is enlarged noting atherosclerotic calcification and uncoiling of the thoracic aorta. The pulmonary vasculature is noncongested. Chronic interstitial thic kening is similar to previous. There is mild bibasilar scarring/atelectasis. No airspace consolidatio n or large pleural effusion is identified. No pneumothorax is seen. The skeletal structures are osteo penic. The bony thorax is grossly intact. Advanced arthritic change is seen in the left shoulder. IMPRESSION: Cardiomegaly with no acute cardiopulmonary abnormality. ACT 112: Negative or not required by law. Electronically signed by: Gabriele March M.D. 09/11/2020 9:26 AM
[2020-09-11] MEDS ORDERED: No Aspirin within 24 hrs of TPA for Stroke PO SCH (09:30)
[2020-09-11] MEDS ORDERED: Alteplase Bolus 9 MG in SYRINGE 0 ML IV ONE (09:32)
[2020-09-11] MEDS ORDERED: ALTEPLASE, RECOMBINANT 81 MG in EMPTY BAG 0 ML IV ONE (09:33)
[2020-09-11] MEDS ORDERED: PRIMARY PLUMSET, PE LINED TUBING, 113 IN, NON-DEHP (2260-0500) IV ONE (09:33)
[2020-09-11 09:45] LABS: INR 1.3 (0.9-1.1); Partial Thromboplastin Ratio 1.1; Partial Thromboplastin Time 31.1 Seconds (21.0-31.0); Prothrombin Time 13.5 Seconds (9.0-12.0)
[2020-09-11 09:48] LABS: Alanine Aminotransferase 27 U/L (12-78); Albumin Level 3.1 gm/dl (3.4-5.0); Aspartate Aminotransferase 26 U/L (15-37); BUN Creatinine Ratio 19.7 (10-20); Blood Urea Nitrogen 24 mg/dl (7-18); Calcium 7.9 mg/dl (8.5-10.1); Carbon Dioxide 22 mmol/L (21-32); Chloride 112 mmol/L (98-107); Creatinine Clr Calc Pharmacy 65.7 ml/min; Est GFR (African American) 63.7; Est GFR (Non-African American) 54.9; Glucose 160 mg/dl (70-99); Magnesium 1.8 mg/dl (1.8-2.4); Potassium 3.8 mmol/L (3.5-5.1); Sodium 140 mmol/L (136-145)
[2020-09-11 09:53] LABS: Albumin Globulin Ratio 0.8 (0.9-2); Alkaline Phosphatase 63 U/L (45-117); Bilirubin,Total 0.3 mg/dl (0.2-1); Globulin 3.8 gm/dl (2.5-4.0); Total Protein 6.9 gm/dl (6.4-8.2); Troponin I < 0.015 ng/ml (0-0.045)
--- NOTE | 2020-09-11 10:16 | Emergency Department Note ---
History of Present Illness General Chief complaint: Stroke Alert Stated complaint: STROKE ALERT Source: patient Mode of arrival: EMS Limitations: no limitations History of Present Illness Provider complaint: CVA Maximum Pain Intensity: 0 This is a 80-year-old male who presents to the ED with a chief complaint of CVA. The patient states that around 815 this morning he sat down and then tried to get up a couple of minutes later and could not move his right side. The patient was already awake and moving around the house before this occurred. The patient was brought in by EMS. Prehospital blood sugar was normal. The patient does have a history of diabetes. He also has a history of paroxysmal A. fib and aortic valve replacement and is on Coumadin chronically. His last dose of Coum marco was last night. EMS reported significant weakness in the right leg, right arm as well as a right-sided facial droop and slurring of the speech. This improved slightly prior to his arrival specifically with regards to the right arm. The patient did not complain of a headache or any other symptoms. Home Medications Medication Instructions Recorded Confirmed Type allopurinol [Zyloprim] 300 mg PO Q OTHER DAY 08/26/18 09/11/20 History amoxicillin 2,000 mg PO UD 08/26/18 09/11/20 History ascorbic acid (vitamin C) [Vitamin 500 mg PO Q OTHER DAY 08/26/18 09/11/20 History C] ferrous sulfate 325 mg PO BID 08/26/18 09/11/20 History fluocinolone and shower cap 1 applic TOPICAL UD PRN 08/26/18 09/11/20 History [Mckinley-Smoothe/FS Scalp Oil] folic acid 1 mg PO PM 08/26/18 09/11/20 History insulin aspart U-100 [Novolog 0 unit SUBCUT TIDM 08/26/18 09/11/20 History Flexpen U-100 Insulin] lisinopril 2.5 mg PO QPM 08/26/18 09/11/20 History paroxetine HCl [Paxil] 20 mg PO QAM 08/26/18 09/11/20 History rosuvastatin [Crestor] 10 mg PO QPM 08/26/18 09/11/20 History Tresiba FlexTouch U-100 60 unit SUBCUT BID 04/29/19 09/11/20 History trospium 60 mg PO QAM 06/06/19 09/11/20 History Trulicity 1.5 mg SUBCUT MO 04/17/20 09/11/20 History lorazepam [Ativan] 1 mg PO TID PRN 04/17/20 09/11/20 History tamsulosin [Flomax] 0.4 mg PO QAM 04/17/20 09/11/20 History beta carotene 25,000 unit PO QAM 07/15/20 09/11/20 History clobetasol 1 applic TOPICAL BID PRN 07/15/20 09/11/20 History metoprolol succinate [Toprol XL] 50 mg PO QAM 07/15/20 09/11/20 History vitamin B complex 1 tab PO PM 07/15/20 09/11/20 History Probiotic 4 Billion Tablets 4 mmu PO BID 09/11/20 09/11/20 History Vitamin D 1200 Units 1,200 units PO PM 09/11/20 09/11/20 History fluocinolone 1 applic TOPICAL DAILY PRN 09/11/20 09/11/20 History multivitamin with minerals 1 tab PO Q2D 09/11/20 09/11/20 History omega 7-rkd-gfw-fish oil [Fish Oil] 1 cap PO Q2D 09/11/20 09/11/20 History pantoprazole 40 mg PO PM 09/11/20 09/11/20 History warfarin See Rx Instructions .ROUTE .COMPLEX 09/11/20 09/11/20 History Allergies Allergy/AdvReac Type Severity Reaction Status Date / Time No Known Allergies Allergy Verified 09/11/20 10:24 Past Med/Surg History Medical History (Updated 09/11/20 @ 10:32 by Salas Dale DO) Anemia Anxiety Aortic aneurysm HX OF- DOES NOT CURRENTLY HAVE PER PATIENT- per Dr. Salcido last office visit 08/18- see reports BPH (benign prostatic hyperplasia) Diabetes type 2, controlled Diabetic neuropathy Dyslipidemia NEMESIO (iron deficiency anemia) Iliac artery aneurysm PER PT'S - DOES NOT HAVE THIS ANYMORE Kidney stones HX -YRS AGO JAMES on CPAP Paroxysmal atrial fibrillation FOLLOWS WITH DR. KYMBERLY GARCIA- NO CARDIOVERSION- JUST TX WITH MEDS Urinary incontinence ON MEDS Surgical History Aortic valve replaced 1988 REPLACED AT [facility] History of appendectomy History of arthroscopy of both knees History of colonoscopy History of spinal surgery LUMBAR- UNSURE WHICH ONES History of total left knee replacement Hx of left cataract extraction Family History Mother Cervical cancer Father Myocardial infarction Social History Smoking Status: Never smoker Tobacco Type: Cigarettes Second Hand Exposure: No; Hx Alcohol Use: No Hx Substance Use: No Preferred Language: Cypriot Communication Ability: Effective 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 Beliefs That Will Affect Care: None marital status: Current Living Situation: Spouse Feels Safe at Home: Yes Assistive Devices: Cane and Glasses Review of Systems A total of 10 systems reviewed and were otherwise negative Physical Exam Vital Signs Vital Signs - 24 hr 09/11/20 09:03 09/11/20 09:35 09/11/20 09:50 Temperature 36.7 C Temperature Source Axillary Pulse Rate 92 H Pulse Rate [Apical] 92 H 84 Respiratory Rate 16 20 20 Blood Pressure 117/87 Blood Pressure [Right Arm] 142/117 H 176/98 H Blood Pressure Mean 97 Blood Pressure Mean [Right Arm] 125 124 Pulse Oximetry 95 95 97 Oxygen Delivery Method Room Air Room Air Room Air Sepsis Recent Fever Within 48 Hours No Sepsis New/Unexplained Change in Mental Status N/A Sepsis Action Taken by Nursing No Action Required 09/11/20 10:00 09/11/20 10:05 09/11/20 10:20 Temperature Temperature Source Pulse Rate Pulse Rate [Apical] 89 85 91 H Respiratory Rate 20 16 20 Blood Pressure Blood Pressure [Right Arm] 156/82 H 178/100 H 183/126 H Blood Pressure Mean Blood Pressure Mean [Right Arm] 106 126 145 Pulse Oximetry 94 95 94 Oxygen Delivery Method Room Air Room Air Room Air Sepsis Recent Fever Within 48 Hours Sepsis New/Unexplained Change in Mental Status Sepsis Action Taken by Nursing 09/11/20 10:35 09/11/20 10:50 Temperature Temperature Source Pulse Rate Pulse Rate [Apical] 90 86 Respiratory Rate 16 16 Blood Pressure Blood Pressure [Right Arm] 170/124 H 128/54 L Blood Pressure Mean Blood Pressure Mean [Right Arm] 139 78 Pulse Oximetry 95 95 Oxygen Delivery Method Room Air Sepsis Recent Fever Within 48 Hours Sepsis New/Unexplained Change in Mental Status Sepsis Action Taken by Nursing VITAL SIGNS: were reviewed as above. GENERAL:Non-toxic in appearance. SKIN: Warm dry and pink. HEAD: Normocephalic and atraumatic. OROPHARYNX: Is clear and moist NECK: Supple without lymphadenopathy or meningismus. LUNGS: Are clear. HEART: Regular rate and rhythm. ABDOMEN: Soft and nontender. EXTREMITIES: Warm and well perfused. NEUROLOGICALLY: Awake alert and oriented. The patient has a right-sided facial droop. His speech is incomprehensible about 50% of the time and is slurring. Cerebellar testing is within normal limits. There is no nystagmus. Speech is slurred. Vision is grossly normal. Stroke scale of 9. MUSCULOSKELETAL: Good muscle tone. No evidence of trauma. Strength is symmetric. ALL NURSING NOTES WERE REVIEWED. Course Administered Medications Discontinued Medications Alteplase, Recombinant (Tpa For Stroke) 1 ea IV NOW STA; Protocol Stop: 09/11/20 09:22 Last Admin: 09/11/20 09:33 Dose: Not Given Documented by: [id number] Alteplase, Recombinant 9 mg/ (Syringe) 9 mls @ 9 mls/min IV ONCE ONE Stop: 09/11/20 09:33 Last Admin: 09/11/20 09:31 Dose: 9 mls/min Documented by: [id number] Cosigned by: [id number] Alteplase, Recombinant 81 mg/ (EMPTY BAG) 81 mls @ 81 mls/hr IV ONCE ONE Stop: 09/11/20 09:34 Last Infusion: 09/11/20 10:33 Dose: 0 mls/hr Documented by: [id number] Cosigned by: [id number] Admin: 09/11/20 09:33 Dose: 81 mls/hr Documented by: [id number] Cosigned by: [id number] Lorazepam (Ativan) 1 mg in 2 mls @ 2 mls/min IV NOW STA Stop: 09/11/20 10:28 Last Admin: 09/11/20 10:46 Dose: 2 mls/min Documented by: [id number] Ioversol (Ioversol 100ml) 119 ml IV ONCE ONE Stop: 09/11/20 09:00 Last Admin: 09/11/20 09:00 Dose: 119 ml Documented by: [id number] Critical Care Time Critical Care Time: Yes Total Critical Care Time: 60 I have personally spent 60 minutes of critical care time in the direct management of this patient. This includes bedside care, interpretation of diagnostic studies, and testing, discussion with consultants, patient, and family members, and other required patient management activities. This 60 minutes is in excess of all separately billable procedures. Medical Decision Making Differential Diagnosis Differential includes acute coronary syndrome, myocardial infarction, CVA, TIA, anemia, infection, pneumonia, UTI, pyelonephritis, poor nutrition, dehydration, electrolyte disturbance,hypoglycemia. Medical Records Attestation: I reviewed the patient's medical records. Home Medications Current Medication List: was personally reviewed by me Laboratory Data Attestation: I reviewed the patient's lab results. Result diagrams: 09/11/20 09:16 09/11/20 09:16 Lab Results 09/11/20 09/11/20 09/11/20 Range/Units 09:11 09:16 09:16 WBC 7.13 (4.8-10.8) K/uL RBC 3.53 L (4.7-6.1) M/uL Hgb 11.4 L (14.0-18.0) g/dL Hct 35.3 L (42-52) % MCV 100.0 (80-100) fL MCH 32.3 (25-34) pg MCHC 32.3 (32-36) g/dL RDW Std Deviation 51.3 H (36.4-46.3) fL RDW Coeff of Chadd 14.2 (11.5-14.5) % Plt Count 155 (130-400) K/uL MPV 10.3 (7.4-10.4) fL Immature Gran % (Auto) 0.7 % Neut % (Auto) 60.2 % Lymph % (Auto) 16.4 % [place] % (Auto) 14.6 % Eos % (Auto) 7.7 % Baso % (Auto) 0.4 % Neut # (Auto) 4.29 (1.4-6.5) K/uL Lymph # (Auto) 1.17 L (1.2-3.4) K/uL [place] # (Auto) 1.04 H (0.11-0.59) K/uL Eos # (Auto) 0.55 H (0-0.5) K/uL Baso # (Auto) 0.03 (0-0.2) K/uL Immature Gran # (Auto) 0.05 H (0.00-0.02) K/uL PT (9.0-12.0) Seconds POC INR 1.4 H (0.9-1.1) INR (0.9-1.1) APTT (21.0-31.0) Seconds PTT Ratio Sodium (136-145) mmol/L Potassium (3.5-5.1) mmol/L Chloride (98-107) mmol/L Carbon Dioxide (21-32) mmol/L Anion Gap (3-11) BUN (7-18) mg/dl Creatinine (0.6-1.4) mg/dl Est Cr Clr Drug Dosing ml/min Est GFR ( Amer) Est GFR (Non-Af Amer) BUN/Creatinine Ratio (10-20) Glucose (70-99) mg/dl Calcium (8.5-10.1) mg/dl Magnesium (1.8-2.4) mg/dl Total Bilirubin (0.2-1) mg/dl AST (15-37) U/L ALT (12-78) U/L Alkaline Phosphatase (45-117) U/L Troponin I (0-0.045) ng/ml Total Protein (6.4-8.2) gm/dl Albumin (3.4-5.0) gm/dl Globulin (2.5-4.0) gm/dl Albumin/Globulin Ratio (0.9-2) Blood Type B Positive Antibody Screen NEGATIVE 09/11/20 09/11/20 Range/Units 09:16 09:16 WBC (4.8-10.8) K/uL RBC (4.7-6.1) M/uL Hgb (14.0-18.0) g/dL Hct (42-52) % MCV (80-100) fL MCH (25-34) pg MCHC (32-36) g/dL RDW Std Deviation (36.4-46.3) fL RDW Coeff of Chadd (11.5-14.5) % Plt Count (130-400) K/uL MPV (7.4-10.4) fL Immature Gran % (Auto) % Neut % (Auto) % Lymph % (Auto) % [place] % (Auto) % Eos % (Auto) % Baso % (Auto) % Neut # (Auto) (1.4-6.5) K/uL Lymph # (Auto) (1.2-3.4) K/uL [place] # (Auto) (0.11-0.59) K/uL Eos # (Auto) (0-0.5) K/uL Baso # (Auto) (0-0.2) K/uL Immature Gran # (Auto) (0.00-0.02) K/uL PT 13.5 H (9.0-12.0) Seconds POC INR (0.9-1.1) INR 1.3 H (0.9-1.1) APTT 31.1 H (21.0-31.0) Seconds PTT Ratio 1.1 Sodium 140 (136-145) mmol/L Potassium 3.8 (3.5-5.1) mmol/L Chloride 112 H (98-107) mmol/L Carbon Dioxide 22 (21-32) mmol/L Anion Gap 5.0 (3-11) BUN 24 H (7-18) mg/dl Creatinine 1.24 (0.6-1.4) mg/dl Est Cr Clr Drug Dosing 65.7 ml/min Est GFR ( Amer) 63.7 Est GFR (Non-Af Amer) 54.9 BUN/Creatinine Ratio 19.7 (10-20) Glucose 160 H (70-99) mg/dl Calcium 7.9 L (8.5-10.1) mg/dl Magnesium 1.8 (1.8-2.4) mg/dl Total Bilirubin 0.3 (0.2-1) mg/dl AST 26 (15-37) U/L ALT 27 (12-78) U/L Alkaline Phosphatase 63 (45-117) U/L Troponin I < 0.015 (0-0.045) ng/ml Total Protein 6.9 (6.4-8.2) gm/dl Albumin 3.1 L (3.4-5.0) gm/dl Globulin 3.8 (2.5-4.0) gm/dl Albumin/Globulin Ratio 0.8 L (0.9-2) Blood Type Antibody Screen Imaging Data Radiologist's Impression: Chest x-ray: No acute disease CT scan of the head: There is no hemorrhage, mass-effect, or evidence of acute territorial ischemia by CT criteria. CT angiogram the head and neck:1. There is no hemorrhage, mass effect, or evidence of acute territorial ischemia by CT criteria noting angiographic phase technique. 2. Unremarkable CT angiogram of the brain. 3. Unremarkable CT angiogram of the neck. ECG Data Attestation: I personally reviewed and interpreted this ECG as follows: Indication: + weakness Rate (beats per minute): 87 Rhythm: + atrial fibrillation ECG ST segments: no ST elevation ECG Findings: no PVCs Blood Pressure Blood Pressure Findings: Normal blood pressure MDM Narrative Patient presents with stroke symptoms. Onset of symptoms was at 8:15 AM. The patient is on Coumadin as detailed above. INR here is 1.3. His exam revealed right facial droop, slurred speech, incomprehensible speech about 50% of the time, right-sided arm pronator drift. A stroke alert was called prior to the patient's arrival. The patient went straight to CT scanner. I did speak with the neurologist from [place], Dr. Dewitt, prior to seeing the patient. She advised to contact her back when we found out the patient's INR and the CT scan results, as she was handling another critical situation. The noncontrast CT did not show acute hemorrhage. INR is 1.3. We did review the criteria for contraindications to thrombolytics. I spoke again with Dr. Dewitt. After our discussion, I was comfortable providing the patient with TPA without her logging into the telestroke cart. TPA was administered 0931. Further details listed above. A CT angio of the brain and neck did not show any concerning abnormalities. The patient's CBC and chemistry panel was unremarkable. BUN is 24. Glucose is 160. Troponin is negative. EKG showed A. fib at a rate of 87. Chest x-ray was negative for acute disease. The patient did receive IV Ativan for some anxiety/agitation while he was here. The patient will be seen by the hospitalist for further inpatient evaluation and care. The patient did seem to have some improvement of his speech during his ED stay. Impression & Plan Acute CVA (cerebrovascular accident) Discharge Plan Visit Data Chief Complaint: Stroke Alert Stated Complaint: STROKE ALERT ED Provider: Salas Dale Discharge Problem: Acute CVA (cerebrovascular accident) Patient Disposition: Being Evaluated by Hospitalist Forms Stand Alone Forms: My [facility] [employer] Prescriptions Prescriptions: No Action Tresiba FlexTouch U-100 100 unit/mL (3 mL) Insulin Pen 60 unit SUBCUT BID RF: 0 trospium 60 mg Capsule,Extended Release 24hr 60 mg PO QAM RF: 0 Trulicity 1.5 mg/0.5 mL pen injector 1.5 mg SUBCUT MO RF: 0 tamsulosin [Flomax] 0.4 mg Capsule 0.4 mg PO QAM RF: 0 lorazepam [Ativan] 1 mg Tablet 1 mg PO TID PRN (Reason: Anxiety) RF: 0 metoprolol succinate [Toprol XL] 50 mg tablet extended release 24 hr 50 mg PO QAM RF: 0 beta carotene 25,000 unit Capsule 25,000 unit PO QAM RF: 0 clobetasol 0.05 % Cream 1 applic TOPICAL BID PRN (Reason: psoriasis) RF: 0 vitamin B complex Tablet 1 tab PO PM RF: 0 amoxicillin 500 mg capsule 2,000 mg PO UD RF: 0 ascorbic acid (vitamin C) [Vitamin C] 500 mg Tablet 500 mg PO Q OTHER DAY RF: 0 paroxetine HCl [Paxil] 20 mg tablet 20 mg PO QAM RF: 0 ferrous sulfate 325 mg (65 mg iron) Tablet 325 mg PO BID RF: 0 folic acid 1 mg tablet 1 mg PO PM RF: 0 allopurinol [Zyloprim] 300 mg tablet 300 mg PO Q OTHER DAY RF: 0 lisinopril 2.5 mg tablet 2.5 mg PO QPM RF: 0 insulin aspart U-100 [Novolog Flexpen U-100 Insulin] 100 unit/mL insulin pen 0 unit subcut TIDM RF: 0 rosuvastatin [Crestor] 10 mg Tablet 10 mg PO QPM RF: 0 fluocinolone and shower cap [Mckinley-Smoothe/FS Scalp Oil] 0.01 % oil 1 applic Topical UD PRN (Reason: psoriasis) RF: 0 pantoprazole 40 mg tablet,delayed release (DR/EC) 40 mg PO PM RF: 0 warfarin 5 mg tablet See Rx Instructions .ROUTE .COMPLEX RF: 0 fluocinolone 0.01 % Oil 1 applic TOPICAL DAILY PRN (Reason: psoriasis) RF: 0 multivitamin with minerals Tablet 1 tab PO Q2D RF: 0 omega 0-psp-ern-fish oil [Fish Oil] 1,200 (144-216) mg Capsule 1 cap PO Q2D RF: 0 Probiotic 4 Billion Tablets 4 mmu PO BID RF: 0 Vitamin D 1200 Units 1,200 units PO PM RF: 0 Referrals Referrals: PCP,NO [Primary Care Provider] -
[2020-09-11] MEDS ORDERED: LORazepam 1 MG/2 ML VIAL IV STA ×2 (10:27→14:14)
[2020-09-11] MEDS ORDERED: ICU PROTOCOL FOR HYPERGLYCEMIA PRN (10:32)
--- NOTE | 2020-09-11 10:51 | History & Physical Report ---
Date of Service September 11, 2020 Assessment & Plan (1) Acute CVA (cerebrovascular accident): Presented with acute CVA, strokelike symptoms started around 8:20 AM in the morning, Patient was within the window of TPA administration Stroke alert was called, patient evaluated by [facility] neuro telemetry TPA administered at 9:32 AM Patient remains right-sided hemiplegic with occasional ballistic movements Severe dysarthria, expressive aphasia, confusion. CTA head neck: Shows no evidence of acute ischemia or hemorrhage Ordered for MRI/MRA of brain. Patient will be admitted to ICU for close monitoring post TPA [facility] neurology consulted Plan of care discussed with on-call neurology Antiplatelet for fast 48 hours post TPA Patient is kept strict n.p.o. until speech evaluation Allow permissive hypertension post CVA Strict aspiration and fall precaution. Confusion/metabolic encephalopathy Possible secondary to post acute stroke, at baseline patient is awake alert oriented, Per -Had normal conversation,Normal activity last night. Continue supportive care, Avoid benzodiazepine, sedative which can worsen confusion status. Abnormal movement/hemiballistics movement Of right extremity: Possible secondary to acute CVA, discussed with neurology, usually seen in subthalamic infarction Follow MRI of brain report/Ordered EEG No obvious seizure activity, ordered for fall and seizure precaution. We will defer neurology for consideration of antiseizure medication/Keppra if indicated (2) S/P AVR (aortic valve replacement): hx of aortic arch aneurysm, status post mechanical aortic valve replacement in at [facility]. Has been on Coumadin, recently INR level has been difficult to adjust. Recent Admission at [facility] July 2020 with suprathera peutic INR of 6, and lower GI bleed. Scheduled for repeat endoscopy on 09/03/2020, patient was placed on Lovenox bridge Coumadin been resumed post procedure, presents with INR 1.4/And acute CVA High risk for mechanical valve thrombus causing embolic phenomena/stroke Transthoracic echo ordered, done in ER already Patient follows with [facility] cardiology Dr. Salcido Briefly discussed the case with on-call cardiology Patient cannot be started with antiplatelets / anticoagulation right now secondary to TPA Need to be need to establish with bridge therapy as soon as possible to prevent future stroke Cardiology recommends to start patient on low-dose heparin without any bolus 24 hours after TPA administration if there is no bleeding complications. History of paroxysmal A. 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 Kobe Agarwal This is a 80-year-old male with complex past medical history of mechanical aortic valve, history of paroxysmal A. fib on Coumadin, history of lower GI bleed, type 2 diabetes, obstructive sleep apnea on CPAP Brought to ER with complaint of strokelike symptoms, right sided weakness. Information obtained from ER physician, medical records, and present at bedside, as patient was not able to give detailed information due to dysarthria and confusion. Around 8:20 AM heard a noise, patient was crying for help yelling for help, Found him on the kitchen floor, was not able to move his right arm, very slurred speech, with right facial droop. EMS was called, Stroke alert in the ER, CT head noncontrast shows no acute stroke or hemorrhage. TPA was administered after discussion with [facility] stroke neurology. Labs shows INR subtherapeutic 1.4, CTA head and neck: Unremarkable, MRI and MRA of brain ordered, Patient will be admitted to ICU for close monitoring of any bleeding complication post TPA Allergies Allergy/AdvReac Type Severity Reaction Status Date / Time No Known Allergies Allergy Verified 09/11/20 10:24 Home Medications Medication Instructions Recorded Confirmed Type allopurinol [Zyloprim] 300 mg PO Q OTHER DAY 08/26/18 09/11/20 History amoxicillin 2,000 mg PO UD 08/26/18 09/11/20 History ascorbic acid (vitamin C) [Vitamin 500 mg PO Q OTHER DAY 08/26/18 09/11/20 History C] ferrous sulfate 325 mg PO BID 08/26/18 09/11/20 History fluocinolone and shower cap 1 applic TOPICAL UD PRN 08/26/18 09/11/20 History [[place]-Smoothe/FS Scalp Oil] folic acid 1 mg PO PM 08/26/18 09/11/20 History insulin aspart U-100 [Novolog 0 unit SUBCUT TIDM 08/26/18 09/11/20 History Flexpen U-100 Insulin] lisinopril 2.5 mg PO QPM 08/26/18 09/11/20 History paroxetine HCl [Paxil] 20 mg PO QAM 08/26/18 09/11/20 History rosuvastatin [Crestor] 10 mg PO QPM 08/26/18 09/11/20 History Tresiba FlexTouch U-100 60 unit SUBCUT BID 04/29/19 09/11/20 History trospium 60 mg PO QAM 06/06/19 09/11/20 History Trulicity 1.5 mg SUBCUT MO 04/17/20 09/11/20 History lorazepam [Ativan] 1 mg PO TID PRN 04/17/20 09/11/20 History tamsulosin [Flomax] 0.4 mg PO QAM 04/17/20 09/11/20 History beta carotene 25,000 unit PO QAM 07/15/20 09/11/20 History clobetasol 1 applic TOPICAL BID PRN 07/15/20 09/11/20 History metoprolol succinate [Toprol XL] 50 mg PO QAM 07/15/20 09/11/20 History vitamin B complex 1 tab PO PM 07/15/20 09/11/20 History Probiotic 4 Billion Tablets 4 mmu PO BID 09/11/20 09/11/20 History Vitamin D 1200 Units 1,200 units PO PM 09/11/20 09/11/20 History fluocinolone 1 applic TOPICAL DAILY PRN 09/11/20 09/11/20 History multivitamin with minerals 1 tab PO Q2D 09/11/20 09/11/20 History omega 1-aeq-eeu-fish oil [Fish Oil] 1 cap PO Q2D 09/11/20 09/11/20 History pantoprazole 40 mg PO PM 09/11/20 09/11/20 History warfarin See Rx Instructions .ROUTE .COMPLEX 09/11/20 09/11/20 History Past Med/Surg History Medical History (Updated 09/11/20 @ 10:32 by Salas Dale DO) Anemia Anxiety Aortic aneurysm HX OF- DOES NOT CURRENTLY HAVE PER PATIENT- per Dr. Salcido last office visit 08/18- see reports BPH (benign prostatic hyperplasia) Diabetes type 2, controlled Diabetic neuropathy Dyslipidemia NEMESIO (iron deficiency anemia) Iliac artery aneurysm PER PT'S - DOES NOT HAVE THIS ANYMORE Kidney stones HX -YRS AGO JAMES on CPAP Paroxysmal atrial fibrillation FOLLOWS WITH DR. KYMBERLY GARCIA- NO CARDIOVERSION- JUST TX WITH MEDS Urinary incontinence ON MEDS Surgical History Aortic valve replaced 1988 REPLACED AT [facility] History of appendectomy History of arthroscopy of both knees History of colonoscopy History of spinal surgery LUMBAR- UNSURE WHICH ONES History of total left knee replacement Hx of left cataract extraction Family History Mother Cervical cancer Father Myocardial infarction Social History Smoking Status: Never smoker Tobacco Type: Cigarettes Second Hand Exposure: No; Hx Alcohol Use: No Hx Substance Use: No Preferred Language: Upper Sorbian Communication Ability: Effective Food Server Required: No Beliefs That Will Affect Care: None marital status: Current Living Situation: Spouse Feels Safe at Home: Yes Assistive Devices: Cane and Glasses Review of Systems Review of Systems: Unobtainable due to cognitive status Physical Exam Constitutional: WD/WN, vitals as above Appears to be confused, with flailing movement of right arm and leg Eyes: PERRL, conjunctivae normal, anicteric sclerae + anicteric sclerae and reactive pupils No nystagmus, ENMT: external ear and nose normal, oropharynx normal Neck: trachea midline, no thyromegaly Respiratory: normal respiratory effort, lungs clear to auscultation Cardiovascular: RRR, no murmur, no edema Gastrointestinal (Abdomen): normal bowel sounds, soft, nontender, no hepatosplenomegaly Skin: no rashes, warm and dry Neurologic: + focal motor deficit (Right-sided weakness), awake and + confused Motor/Sensory: + abnormal movement (Involuntary ballistic movement noted right upper extremity) and + pronator drift (Right pronator drift) Right- sided weakness, with right facial droop, confusion, Results & Data Results & Data ([facility]) Vital Signs (Past 12 Hours) Vital Signs Temp Pulse Pulse Resp BP BP Pulse Ox 09/11/20 10:35 90 16 170/124 H 95 09/11/20 10:20 91 H 20 183/126 H 94 09/11/20 10:05 85 16 178/100 H 95 09/11/20 10:00 89 20 156/82 H 94 09/11/20 09:50 84 20 176/98 H 97 09/11/20 09:35 92 H 20 142/117 H 95 09/11/20 09:03 36.7 C 92 H 16 117/87 95 Diagnostic Findings CTA: Head and neck IMPRESSION: 1. There is no hemorrhage, mass effect, or evidence of acute territorial ischemia by CT criteria noting angiographic phase technique. 2. Unremarkable CT angiogram of the brain. 3. Unremarkable CT angiogram of the neck. CT head: IMPRESSION: There is no hemorrhage, mass effect, or evidence of acute territorial ischemia by CT criteria. Chest x-ray: IMPRESSION: Cardiomegaly with no acute cardiopulmonary abnormality. Code Status & VTE Plan Code Status Full code: Discussed with patient's VTE Prophylaxis Plan VTE Prophylaxis will be ordered: Yes Reason for no VTE drug order: Contraindicated (Status post TPA administration high risk for bleeding)
[2020-09-11] MEDS ORDERED: PHARMACIST DISCHARGE MED REC CONSULT PRN (12:54)
[2020-09-11] MEDS ORDERED: HALOPERIDOL LACTATE 5 MG/ML 1 ML VIAL IM PRN (13:18)
--- NOTE | 2020-09-11 14:44 | Critical Care Consultation ---
Date of Consultation September 11, 2020 Assessment & Plan (1) Acute CVA (cerebrovascular accident): Reason Critically Ill: 80-year-old male with an acute CVA in the setting of requiring long-term anticoagulation for mechanical aortic valve PLAN: Neuro: Acute CVA -Status post TPA CV: Aortic valve replacement Need for long-term anticoagulation -Deferring anticoagulation to cardiology and neurology Fluids/Renal: Baseline creatinine approximately 1.2 ID: Monitor fever curve GI/Nutrition: N.p.o. until speech evaluation Heme: Long-term anticoagulation Mild anemia NOS DVT prophylaxis: SCDs Endocrine: ICU hyperglycemia protocol Vascular access: Peripheral IVs Code Status: DNR/DNI Disposition: ICU (2) Anemia: (3) Elevated INR: (4) CLIFFORD (acute kidney injury): (5) care home current use of anticoagulant therapy: (6) Hx of aortic valve replacement, mechanical: History of Present Illness Reason for Consultation: Status post TPA administration for presumptive CVA Attending Physician: Lizzy Garcia MD History of Present Illness Patient history is largely obtained from hospital service from prior records. He is a 80-year-old male with a mechanical heart valve which requires anticoagulation, he was recently to undergo a colonoscopy which he was being bridged with Lovenox, today he was found his INR was subtherapeutic. The stroke had an acute onset approximately 820 this morning TPA was administered at 9:32 AM. At that time was found to have right-sided hemiplegia with occasional ballistic movements, since that. He is undergone an MRI MRA of the brain which demonstrates an temporoparietal infarct and possibly a small punctate infarct in the cerebellum. Allergies Allergy/AdvReac Type Severity Reaction Status Date / Time No Known Allergies Allergy Verified 09/11/20 10:24 Home Medications Medication Instructions Recorded Confirmed Type allopurinol [Zyloprim] 300 mg PO Q OTHER DAY 08/26/18 09/11/20 History amoxicillin 2,000 mg PO UD 08/26/18 09/11/20 History ascorbic acid (vitamin C) [Vitamin 500 mg PO Q OTHER DAY 08/26/18 09/11/20 History C] ferrous sulfate 325 mg PO BID 08/26/18 09/11/20 History fluocinolone and shower cap 1 applic TOPICAL UD PRN 08/26/18 09/11/20 History [[place]-Smoothe/FS Scalp Oil] folic acid 1 mg PO PM 08/26/18 09/11/20 History insulin aspart U-100 [Novolog 0 unit SUBCUT TIDM 08/26/18 09/11/20 History Flexpen U-100 Insulin] lisinopril 2.5 mg PO QPM 08/26/18 09/11/20 History paroxetine HCl [Paxil] 20 mg PO QAM 08/26/18 09/11/20 History rosuvastatin [Crestor] 10 mg PO QPM 08/26/18 09/11/20 History Tresiba FlexTouch U-100 60 unit SUBCUT BID 04/29/19 09/11/20 History trospium 60 mg PO QAM 06/06/19 09/11/20 History Trulicity 1.5 mg SUBCUT MO 04/17/20 09/11/20 History lorazepam [Ativan] 1 mg PO TID PRN 04/17/20 09/11/20 History tamsulosin [Flomax] 0.4 mg PO QAM 04/17/20 09/11/20 History beta carotene 25,000 unit PO QAM 07/15/20 09/11/20 History clobetasol 1 applic TOPICAL BID PRN 07/15/20 09/11/20 History metoprolol succinate [Toprol XL] 50 mg PO QAM 07/15/20 09/11/20 History vitamin B complex 1 tab PO PM 07/15/20 09/11/20 History Probiotic 4 Billion Tablets 4 mmu PO BID 09/11/20 09/11/20 History Vitamin D 1200 Units 1,200 units PO PM 09/11/20 09/11/20 History fluocinolone 1 applic TOPICAL DAILY PRN 09/11/20 09/11/20 History multivitamin with minerals 1 tab PO Q2D 09/11/20 09/11/20 History omega 3-ovq-kit-fish oil [Fish Oil] 1 cap PO Q2D 09/11/20 09/11/20 History pantoprazole 40 mg PO PM 09/11/20 09/11/20 History warfarin See Rx Instructions .ROUTE .COMPLEX 09/11/20 09/11/20 History Patient History Medical History (Updated 09/11/20 @ 20:22 by Manish Jensen, DO) Anemia Anxiety Aortic aneurysm HX OF- DOES NOT CURRENTLY HAVE PER PATIENT- per Dr. Salcido last office visit 08/18- see reports BPH (benign prostatic hyperplasia) Diabetes type 2, controlled Diabetic neuropathy Dyslipidemia NEMESIO (iron deficiency anemia) Iliac artery aneurysm PER PT'S - DOES NOT HAVE THIS ANYMORE Kidney stones HX -YRS AGO JAMES on CPAP Paroxysmal atrial fibrillation FOLLOWS WITH DR. KYMBERLY GARCIA- NO CARDIOVERSION- JUST TX WITH MEDS Urinary incontinence ON MEDS Surgical History (Updated 09/11/20 @ 20:22 by Manish Jensen DO) Aortic valve replaced 1988 REPLACED AT [facility] History of appendectomy History of arthroscopy of both knees History of colonoscopy History of spinal surgery LUMBAR- UNSURE WHICH ONES History of total left knee replacement Hx of left cataract extraction Family History Mother Cervical cancer Father Myocardial infarction Social History Smoking Status: Never smoker Tobacco Type: Cigarettes Second Hand Exposure: No; Hx Alcohol Use: No Hx Substance Use: No Preferred Language: Greek Communication Ability: Effective Health Facilities Surveyor Required: No Beliefs That Will Affect Care: None marital status: Current Living Situation: Spouse Feels Safe at Home: Yes Assistive Devices: Cane and Glasses Review of Systems Review of Systems: Other Unable to completely obtain due to garbled speech Physical Exam Physical Exam: General: Alert. . Skin: Warm, dry, Head: Atraumatic Ears, nose, mouth and throat: airway patent Cardiovascular: Normal peripheral perfusion Respiratory: no respiratory distress Gastrointestinal: Non distended Musculoskeletal: No deformity able to identify fingers on both hands, able to move all 4 extremities. Results & Data Results & Data ([facility]) Vital Signs (Past 12 Hours) Vital Signs Temp Pulse Pulse Resp BP BP Pulse Ox 09/11/20 14:05 36.9 C 89 17 129/77 95 09/11/20 13:35 36.9 C 88 18 115/54 L 98 09/11/20 13:05 36.9 C 90 14 142/87 H 98 09/11/20 12:20 82 20 96 09/11/20 12:15 85 15 131/71 97 09/11/20 12:10 21 96 09/11/20 12:02 22 95 09/11/20 12:01 20 96 09/11/20 12:00 16 94 09/11/20 11:50 22 96 09/11/20 11:46 86 27 H 130/85 97 09/11/20 11:40 87 16 97 09/11/20 11:32 86 18 97 09/11/20 11:31 89 18 176/82 H 97 09/11/20 11:30 87 20 94 09/11/20 11:26 88 15 124/66 97 09/11/20 11:20 82 20 95 09/11/20 11:16 87 26 H 139/71 96 09/11/20 11:11 93 H 19 149/95 H 96 09/11/20 11:10 90 18 95 09/11/20 11:05 88 22 150/90 H 96 09/11/20 11:00 86 22 158/80 H 09/11/20 10:50 86 16 128/54 L 95 09/11/20 10:46 87 17 128/54 L 09/11/20 10:35 90 16 170/124 H 95 09/11/20 10:20 91 H 20 183/126 H 94 09/11/20 10:05 85 16 178/100 H 95 09/11/20 10:00 89 20 156/82 H 94 09/11/20 09:56 90 09/11/20 09:50 84 20 176/98 H 97 09/11/20 09:35 92 H 20 142/117 H 95 09/11/20 09:03 36.7 C 92 H 16 117/87 95 Laboratory Results 09/11/20 09/11/20 09/11/20 Range/Units 13:25 13:07 11:35 WBC (4.8-10.8) K/uL RBC (4.7-6.1) M/uL Hgb (14.0-18.0) g/dL Hct (42-52) % MCV (80-100) fL MCH (25-34) pg MCHC (32-36) g/dL RDW Std Deviation (36.4-46.3) fL RDW Coeff of Chadd (11.5-14.5) % Plt Count (130-400) K/uL MPV (7.4-10.4) fL Immature Gran % (Auto) % Neut % (Auto) % Lymph % (Auto) % [place] % (Auto) % Eos % (Auto) % Baso % (Auto) % Neut # (Auto) (1.4-6.5) K/uL Lymph # (Auto) (1.2-3.4) K/uL [place] # (Auto) (0.11-0.59) K/uL Eos # (Auto) (0-0.5) K/uL Baso # (Auto) (0-0.2) K/uL Immature Gran # (Auto) (0.00-0.02) K/uL PT (9.0-12.0) Seconds POC INR (0.9-1.1) INR (0.9-1.1) APTT (21.0-31.0) Seconds PTT Ratio Sodium (136-145) mmol/L Potassium (3.5-5.1) mmol/L Chloride (98-107) mmol/L Carbon Dioxide (21-32) mmol/L Anion Gap (3-11) BUN (7-18) mg/dl Creatinine (0.6-1.4) mg/dl Est Cr Clr Drug Dosing ml/min Est GFR ( Amer) Est GFR (Non-Af Amer) BUN/Creatinine Ratio (10-20) Glucose (70-99) mg/dl Calcium (8.5-10.1) mg/dl Magnesium (1.8-2.4) mg/dl Total Bilirubin (0.2-1) mg/dl AST (15-37) U/L ALT (12-78) U/L Alkaline Phosphatase (45-117) U/L Troponin I < 0.015 (0-0.045) ng/ml Total Protein (6.4-8.2) gm/dl Albumin (3.4-5.0) gm/dl Globulin (2.5-4.0) gm/dl Albumin/Globulin Ratio (0.9-2) Nasal Screen MRSA (PCR) Positive A (Negative) COVID-19 Eval Order SARS-CoV-2, RNA, NAAT NEGATIVE (NEGATIVE) Blood Type Antibody Screen 09/11/20 09/11/20 09/11/20 Range/Units 11:35 09:16 09:16 WBC (4.8-10.8) K/uL RBC (4.7-6.1) M/uL Hgb (14.0-18.0) g/dL Hct (42-52) % MCV (80-100) fL MCH (25-34) pg MCHC (32-36) g/dL RDW Std Deviation (36.4-46.3) fL RDW Coeff of Chadd (11.5-14.5) % Plt Count (130-400) K/uL MPV (7.4-10.4) fL Immature Gran % (Auto) % Neut % (Auto) % Lymph % (Auto) % [place] % (Auto) % Eos % (Auto) % Baso % (Auto) % Neut # (Auto) (1.4-6.5) K/uL Lymph # (Auto) (1.2-3.4) K/uL [place] # (Auto) (0.11-0.59) K/uL Eos # (Auto) (0-0.5) K/uL Baso # (Auto) (0-0.2) K/uL Immature Gran # (Auto) (0.00-0.02) K/uL PT 13.5 H (9.0-12.0) Seconds POC INR (0.9-1.1) INR 1.3 H (0.9-1.1) APTT 31.1 H (21.0-31.0) Seconds PTT Ratio 1.1 Sodium 140 (136-145) mmol/L Potassium 3.8 (3.5-5.1) mmol/L Chloride 112 H (98-107) mmol/L Carbon Dioxide 22 (21-32) mmol/L Anion Gap 5.0 (3-11) BUN 24 H (7-18) mg/dl Creatinine 1.24 (0.6-1.4) mg/dl Est Cr Clr Drug Dosing 65.7 ml/min Est GFR ( Amer) 63.7 Est GFR (Non-Af Amer) 54.9 BUN/Creatinine Ratio 19.7 (10-20) Glucose 160 H (70-99) mg/dl Calcium 7.9 L (8.5-10.1) mg/dl Magnesium 1.8 (1.8-2.4) mg/dl Total Bilirubin 0.3 (0.2-1) mg/dl AST 26 (15-37) U/L ALT 27 (12-78) U/L Alkaline Phosphatase 63 (45-117) U/L Troponin I < 0.015 (0-0.045) ng/ml Total Protein 6.9 (6.4-8.2) gm/dl Albumin 3.1 L (3.4-5.0) gm/dl Globulin 3.8 (2.5-4.0) gm/dl Albumin/Globulin Ratio 0.8 L (0.9-2) Nasal Screen MRSA (PCR) (Negative) COVID-19 Eval Order Covid19 IDNow [facility] SARS-CoV-2, RNA, NAAT (NEGATIVE) Blood Type Antibody Screen 09/11/20 09/11/20 09/11/20 Range/Units 09:16 09:16 09:11 WBC 7.13 (4.8-10.8) K/uL RBC 3.53 L (4.7-6.1) M/uL Hgb 11.4 L (14.0-18.0) g/dL Hct 35.3 L (42-52) % MCV 100.0 (80-100) fL MCH 32.3 (25-34) pg MCHC 32.3 (32-36) g/dL RDW Std Deviation 51.3 H (36.4-46.3) fL RDW Coeff of Chadd 14.2 (11.5-14.5) % Plt Count 155 (130-400) K/uL MPV 10.3 (7.4-10.4) fL Immature Gran % (Auto) 0.7 % Neut % (Auto) 60.2 % Lymph % (Auto) 16.4 % [place] % (Auto) 14.6 % Eos % (Auto) 7.7 % Baso % (Auto) 0.4 % Neut # (Auto) 4.29 (1.4-6.5) K/uL Lymph # (Auto) 1.17 L (1.2-3.4) K/uL [place] # (Auto) 1.04 H (0.11-0.59) K/uL Eos # (Auto) 0.55 H (0-0.5) K/uL Baso # (Auto) 0.03 (0-0.2) K/uL Immature Gran # (Auto) 0.05 H (0.00-0.02) K/uL PT (9.0-12.0) Seconds POC INR 1.4 H (0.9-1.1) INR (0.9-1.1) APTT (21.0-31.0) Seconds PTT Ratio Sodium (136-145) mmol/L Potassium (3.5-5.1) mmol/L Chloride (98-107) mmol/L Carbon Dioxide (21-32) mmol/L Anion Gap (3-11) BUN (7-18) mg/dl Creatinine (0.6-1.4) mg/dl Est Cr Clr Drug Dosing ml/min Est GFR ( Amer) Est GFR (Non-Af Amer) BUN/Creatinine Ratio (10-20) Glucose (70-99) mg/dl Calcium (8.5-10.1) mg/dl Magnesium (1.8-2.4) mg/dl Total Bilirubin (0.2-1) mg/dl AST (15-37) U/L ALT (12-78) U/L Alkaline Phosphatase (45-117) U/L Troponin I (0-0.045) ng/ml Total Protein (6.4-8.2) gm/dl Albumin (3.4-5.0) gm/dl Globulin (2.5-4.0) gm/dl Albumin/Globulin Ratio (0.9-2) Nasal Screen MRSA (PCR) (Negative) COVID-19 Eval Order SARS-CoV-2, RNA, NAAT (NEGATIVE) Blood Type B Positive Antibody Screen NEGATIVE Coding Level of Care Code Critical Care 1st 30-74 mins Diagnoses Acute CVA (cerebrovascular accident) I63.9 Anemia D64.9 Anemia type: unspecified type Elevated INR R79.1 CLIFFORD (acute kidney injury) N17.9 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
[2020-09-11] MEDS ORDERED: GADOBUTROL 65ML VIAL IV ONE (15:49)
--- NOTE | 2020-09-11 15:56 | Magnetic Resonance Report ---
MRI OF THE BRAIN COMBO CLINICAL HISTORY: Strokelike symptoms. Dysarthria. Expressive aphasia. Change in mental status. Right hemiplegia. COMPARISON STUDY: CT of the brain dated 09/11/2020. TECHNIQUE: MRI of the brain was performed utilizing various T1 and T2-weighted sequences in the axial , sagittal, and coronal planes. Contrast-enhanced sequences were acquired following the administratio n of 12.5 cc of Gadavist. The examination is degraded by motion artifact. FINDINGS: Brain parenchyma: There is a large region of restricted diffusion identified involving the left tempo roparietal cortex consistent with acute ischemia. Question a second small linear focus of ischemia in the left cerebellar hemisphere. There is no hemorrhage or mass effect. No enhancing mass lesion is identified on the postcontrast images. No extra-axial fluid collection is seen. There is age-related involutional change noting mild subcortical and periventricular microangiopathic disease. The cerebel lar tonsils are normal in configuration. Ventricles, sulci, and cisterns: Prominent secondary to involutional change. Pituitary and sella: Unremarkable. Intracranial vasculature: Normal flow voids are maintained at the skull base. Orbits: The bony orbits are grossly intact. Orbital contents are normal in appearance noting bilatera l ocular lens implants. Sinuses and mastoids: Clear. Calvarium: Unremarkable. Cervical cord: Partially visualized cervical spinal cord is normal in morphology and signal intensity . IMPRESSION: 1. There is a large region of restricted diffusion involving the left temporoparietal cortex consiste nt with acute ischemia. 2. Question a second tiny focus of acute ischemia in the left cerebellar hemisphere. 3. There is no hemorrhage or mass effect. ACT 112: Negative or not required by law. Electronically signed by: Gabriele March M.D. 09/11/2020 3:55 PM
--- NOTE | 2020-09-11 16:16 | Communication Note ---
Date of Service: September 11, 2020 MRI OF BRAIN : IMPRESSION: 1. There is a large region of restricted diffusion involving the left temporoparietal cortex consistent with acute ischemia. 2. Question a second tiny focus of acute ischemia in the left cerebellar hemisphere. 3. There is no hemorrhage or mass effect. report updated to credit control clerk Neurologist - repeat CT head in AM to r/o any hge transformation of stroke , cont to monitor in ICU pt will need emergent CT head with any new neurological change or deficit ICU team updated Lizzy Garcia MD
--- NOTE | 2020-09-11 20:01 | CT Scan Report ---
CT SCAN OF THE BRAIN WITHOUT IV CONTRAST CLINICAL HISTORY: Stroke. Headache. Status post TPA. COMPARISON STUDY: CT and MRI of the brain performed earlier the same day 09/11/2020. TECHNIQUE: Unenhanced axial CT scan of the brain is performed from the vertex to the skull base. A do se lowering technique was utilized adhering to the principles of ALARA. CT DOSE: 1437.38 mGy.cm FINDINGS: Brain parenchyma: There is loss of castellon-white matter differentiation identified in the left temporopa rietal region consistent with an evolving infarct. There is no hemorrhage or mass effect. There are a ge-related involutional changes noting mild subcortical and periventricular microangiopathic change. No extra-axial fluid collection is seen. Ventricles, sulci, cisterns: Prominent secondary to involutional change. Intracranial vasculature: There is atherosclerotic calcification of the cavernous carotid and vertebr al arteries. Calvarium: Unremarkable. Sinuses and mastoids: The visualized paranasal sinuses are clear. The mastoid air cells are well pneu matized. Orbits: The bony orbits are grossly intact. There are bilateral ocular lens implants. IMPRESSION: 1. There is loss of castellon-white matter differentiation in the left temporoparietal region consistent w ith an evolving infarct. 2. There is no hemorrhage or mass effect. ACT 112: Negative or not required by law. Electronically signed by: Gabriele March M.D. 09/11/2020 8:00 PM
[2020-09-11] MEDS ORDERED: ACETAMINOPHEN 1,000 MG/100 ML VIAL IV STA (20:55)
[2020-09-12] MEDS ORDERED: PNEUMOCOCCAL ADMINISTRATION CHARGE ONE (05:30)
[2020-09-12] MEDS ORDERED: INFLUENZA ADMINISTRATION CHARGE ONE (05:30)
[2020-09-12] MEDS ORDERED: INFLUENZA VACCINE HIGH DOSE 65+ 0.7 ML SYR IM ONE (05:30)
[2020-09-12] MEDS ORDERED: PNEUMOCOCCAL POLYSACCHARIDES 25 MCG/0.5 ML VIAL/SYR IM ONE (05:30)
--- NOTE | 2020-09-12 09:43 | Critical Care Progress Note ---
Date of Service September 12, 2020 Assessment & Plan (1) Acute CVA (cerebrovascular accident): Reason Critically Ill: 80-year-old male with an acute CVA in the setting of requiring long-term anticoagulation for mechanical aortic valve PLAN: Neuro: Acute CVA -Status post TPA -300 mg SD aspirin given CV: Aortic valve replacement Need for long-term anticoagulation -Deferring anticoagulation to cardiology and neurology -Guidelines usually indicate thrombotic risk must be compared to hemorrhagic transformation risk -For hemorrhagic stroke usually wait 1 week prior to initiation of systemic anticoagulation -Other studies indicate thrombotic risk from holding anticoagulation for few days does not significantly increase risk of acute thrombosis -No thrombus noted on echo however this was a technically limited study Fluids/Renal: Baseline creatinine approximately 1.2 ID: Monitor fever curve GI/Nutrition: N.p.o. until speech evaluation Heme: Long-term anticoagulation Mild anemia NOS DVT prophylaxis: SCDs Endocrine: ICU hyperglycemia protocol Vascular access: Peripheral IVs Code Status: DNR/DNI Disposition: Stable for downgrade out of ICU to telemetry status (2) Anemia: (3) Elevated INR: (4) CLIFFORD (acute kidney injury): (5) custodial current use of anticoagulant therapy: (6) Hx of aortic valve replacement, mechanical: Admission and Anticipated Discharge Date Admission Date: September 11, 2020 Supervising Physician Co-Signing Physician Notes Patient critically ill due to thrombosis risk versus hemorrhagic transformation risk in the setting of mechanical heart valve and recent CVA. I discussed the patient with the neurology service. Patient can be downgraded to telemetry status. I have personally spent 55 minutes of critical care time in the direct management of this patient. This is a life/limb threatening event. This includes time spent evaluating patient, direct bedside care, chart review, placing orders, interpretation of diagnostic studies, discussion with consultants, patient, and/or family members regarding treatment decisions, as well as other required patient management activities. This time is exclusive of all separately billable procedures, and teaching time and separate from and in addition to any other critical care service time. Subjective No overnight events., Patient reports that he feels much better because he slept easier Review of Systems Review of Systems: Limited secondary to dysarthria but weakness and numbness in the right side Physical Exam Physical Exam: Neuro: Cranial nerves II through appear grossly intact Patient does have weakness with shoulder shrug and tongue deviates towards left side Patient is able to puff out cheeks, no obviously significant facial droop mild decrease in nasolabial folds on right side Positive extinction of the lower extremity upper extremity and lower face spared the upper face Did not check pronator drift nor cerebellar function General: Alert. nontoxic. Skin: Warm, dry, Head: Atraumatic Ears, nose, mouth and throat: airway patent Cardiovascular: Normal peripheral perfusion Respiratory: no respiratory distress Gastrointestinal: Non distended Musculoskeletal: No deformity, strength 5 out of 5 bilateral hip flexors, upper extremity left 5 out of 5 right 4 out of 5 Results & Data Results & Data ([facility]) Vital Signs (Past 12 Hours) Vital Signs Temp Pulse Pulse Resp BP Pulse Ox 09/12/20 08:35 36.7 C 91 H 14 182/85 H 97 09/12/20 07:35 36.7 C 92 H 21 156/81 H 90 09/12/20 06:40 88 18 162/84 H 95 09/12/20 05:40 36.9 C 91 H 19 130/80 94 09/12/20 04:40 36.6 C 95 H 17 118/67 93 09/12/20 03:46 139/78 09/12/20 03:40 36.6 C 97 H 20 165/117 H 93 09/12/20 02:40 36.5 C 97 H 22 106/73 92 09/12/20 01:45 123/75 09/12/20 01:40 36.6 C 99 H 18 91/64 L 93 09/12/20 00:40 36.7 C 91 H 22 147/73 H 95 09/11/20 23:40 36.6 C 90 14 126/55 L 95 09/11/20 23:18 95 H 16 92 09/11/20 22:40 36.9 C 93 H 17 164/84 H 93 Laboratory Results 09/11/20 09/11/20 09/11/20 Range/Units 13:25 13:07 11:35 Troponin I < 0.015 (0-0.045) ng/ml Nasal Screen MRSA (PCR) Positive A (Negative) COVID-19 Eval Order SARS-CoV-2, RNA, NAAT NEGATIVE (NEGATIVE) Blood Type Antibody Screen 09/11/20 09/11/20 Range/Units 11:35 09:16 Troponin I (0-0.045) ng/ml Nasal Screen MRSA (PCR) (Negative) COVID-19 Eval [facility], RNA, NAAT (NEGATIVE) Blood Type B Positive Antibody Screen NEGATIVE Coding Level of Care Code Critical Care 1st 30-74 mins Diagnoses Acute CVA (cerebrovascular accident) I63.9 Anemia D64.9 Anemia type: unspecified type Elevated INR R79.1 CLIFFORD (acute kidney injury) N17.9 custodial current use of anticoagulant therapy Z79.01 Hx of aortic valve replacement, mechanical Z95.2 Time Spent (min) 55 (1) Anemia Anemia type: unspecified type Qualified Code(s): D64.9 - Anemia, unspecified
[2020-09-12] MEDS ORDERED: ASPIRIN 300 MG SUPP PR SCH (09:45)
--- NOTE | 2020-09-12 09:45 | CT Scan Report ---
HEAD CT NONCONTRAST CT DOSE: 884.08 mGy.cm HISTORY: large left-sided cerebral infarction status post/tPA r/o bleed TECHNIQUE: Multiaxial CT images of the head were performed without the use of intravenous contrast. A utomated exposure control was utilized for this study. A dose lowering technique was utilized adheri ng to the principles of ALARA. Comparison: Head CT 09/11/2020. Findings: The paranasal sinuses and mastoid air cells are clear. There is again noted a focal area of hypodensity within the left temporoparietal location consistent with expected evolution of the left MCA territory infarct. No evidence for hemorrhagic transformation. Mild atrophy and microvascular isc hemic changes are again noted. No mass or midline shift at this time. Impression: Expected evolution of the left MCA territory infarct. No evidence for hemorrhagic transformation. ACT 112: Negative or not required by law. Electronically signed by: Alonso Madrigal M.D. 09/12/2020 9:44 AM
[2020-09-12 10:19] LABS: Hematocrit (blood only) 37.7 % (42-52); Hemoglobin 12.7 g/dL (14.0-18.0); Mean Corpuscular Hemoglobin 33.3 pg (25-34); Mean Corpuscular Hgb Conc 33.7 g/dL (32-36); Mean Platelet Volume 10.2 fL (7.4-10.4); Platelet Count 166 K/uL (130-400); RDW Coefficient of Variation 14.2 % (11.5-14.5); RDW Standard Deviation 50.6 fL (36.4-46.3); Red Blood Count 3.81 M/uL (4.7-6.1); White Blood Count 9.54 K/uL (4.8-10.8)
[2020-09-12 10:43] LABS: BUN Creatinine Ratio 15.4 (10-20); Creatinine Clr Calc Pharmacy 72.8 ml/min; Est GFR (Non-African American) 62.1; Potassium 3.8 mmol/L (3.5-5.1)
[2020-09-12] MEDS: ASPIRIN 81 MG ECTAB PO SCH (12:20)
--- NOTE | 2020-09-12 13:59 | Consultation Report ---
DATE OF CONSULTATION: 09/12/2020 REASON FOR CONSULTATION: Stroke, mechanical heart valve and subtherapeutic INR. HISTORY OF PRESENT ILLNESS: This patient is a 80-year-old left-handed male with a complex past medical history including a mechanical aortic valve, history of paroxysmal atrial fibrillation -- on Coumadin, history of lower GI bleed, type 2 diabetes, obstructive sleep apnea -- on CPAP. This patient was brought into the Emergency Room with a sudden onset approximately 8:00 a.m. of stroke-like symptoms with language dysfunction and right-sided weakness. The patient fell at the onset of his symptoms. History is obtained from the medical record. The patient was brought in as a stroke alert. CT of the head showed no acute stroke or hemorrhage. I believe the NIH stroke scale was 9. The pt was described as having some ballistic movements of the RUE and RLE which have resolved. TPA was administered after discussion with the [facility], although I do not believe the patient was seen by tele-neurology as there was another emergency. The patient's INR was subtherapeutic at 1.4. CTA of the head and neck were unremarkable, and an MRI of the brain was ordered. The MRI of the brain, which I have reviewed and subsequent CT x2 are as follows: There is a large region of restricted diffusion in the left temporoparietal cortex consistent with acute ischemia, questionable second tiny focus of acute ischemia in the left cerebellar hemisphere. No hemorrhage or mass effect. Having reviewed this, I believe that the size of the stroke is approximately greater than a third of the distribution of the left MCA and the left cerebellar infarct is tiny. CT of the head was performed due to headache and showed an expected evolution of left MCA territory infarct without evidence of hemorrhagic transformation as well as a 24-hour study. An echocardiogram performed in the Emergency Room was very limited. I am told that they do not report out a thrombus. The patient had a procedure about 2 months ago for which he was bridged on Lovenox while off Coumadin. He then subsequently had a GI bleed, I believe, last month while hospitalized and I believe at least was transiently off Coumadin. His indicates that his INR has always been difficult to control. His labs were notable for a white count of 9.5, H and H of 12.7/37____, platelet count 166. INR this morning was 1.3. Chemistry profile on admission notable for BUN of 24, glucose of 160, calcium of 7.9. His LDL is 33. His MRSA screen is positive and his COVID-19 test is negative. ALLERGIES: He has no known allergies. PAST MEDICAL HISTORY: Notable for the above, additionally anemia, anxiety, aortic aneurysm, history of BPH, diabetic neuropathy, dyslipidemia, iron-deficiency anemia, history of iliac artery aneurysm -- per patient's does not have this anymore, remote history of kidney stones, obstructive sleep apnea, paroxysmal atrial fibrillation, urinary incontinence. PAST SURGICAL HISTORY: Aortic valve replaced in 1987 at [facility] [facility], appendectomy, arthroscopy, colonoscopy, lumbar spine surgery, left total knee, history of left cataract extraction. FAMILY HISTORY: Mother, cervical cancer. Father, [place]. SOCIAL HISTORY: The patient is a nonsmoker. Does not drink alcohol. 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 PHYSICAL EXAMINATION: VITAL SIGNS: 153/82. The patient is awake and alert, in no distress. He indicates some mild frontal headache. He is unable to state his name, location. He is able to correctly pick when given options. His naming is impaired. Repetitions are impaired, but he is able to follow commands well. Head is normocephalic, atraumatic. There is no neck stiffness. There is an area of ecchymosis in the left anterior chest wall. His pupils appear to be postsurgical. Optic nerves are grossly normal, normal jones, motility. Facial, there is mild flattening in the right nasolabial fold. Mild dysarthria. Tongue is midline. Gag is hypoactive. Motor; right upper extremity 3+/5, right lower approximately 4+/5. Left upper and left lower are full. Reflexes are symmetric. Toes are downgoing. There is decreased light touch in the right arm and right leg, but temperature is symmetric. There is some mild dystaxia on the basis of weakness. There is a right drift and mildly decreased right rapid alternating movements. Oxdi-ow-ghqt is normal. IMPRESSION AND PLAN: This patient has a left middle cerebral artery infarction, which is modestly large in size which is likely embolic from his mechanical valve and subtherapeutic INR>By report, the patient has improved having received TPA. The stroke while large shows no evidence of hemorrhagic transformation. I have discussed this patient's case at length with Dr. Mcrae of cardiology, Dr. Jensen, the outside residential sales professional and I contacted the [facility] who is a vascular specialist, Dr Kaminski. The issues are early versus anticoagulation versus holding anticoagulation for a week. This circumstance is somewhat different than typical embolic stroke from atrial fibrillation given the high propensity for the mechanical valve to potentially thrombose and be a source of clot. After careful consideration, I have elected to start the patient on Coumadin at his home dose and let his INR drift up to therapeutic. When the INR is therapeutic, repeat a CT of the head to see if the infarct , is hemorrhagic. If the patient changes clinically in the interim, repeat CT of the head . . I discussed this at length with his . She understands that if we do nothing, he may soon have a recurrent ischemic event and/or have thrombosis of the valve. If we anticoagulate, he may have bleeding into this large stroke and that might be a terminal event as well. She is agreeable to start Coumadin. No objection to aspirin as well in the interim Resolved hemiballistic movements. Greater than 1 hour was spent with the patient, more than 50% of the time coordinating care and speaking to subspecialists. We will follow with you. TYRON
--- NOTE | 2020-09-12 17:05 | Hospitalist Progress Note ---
Date of Service September 12, 2020 Assessment & Plan (1) Acute CVA (cerebrovascular accident): Presented with acute CVA, Patient was within the window of TPA administration Stroke alert was called, patient evaluated by [facility] telemetry/received tPA Ordered for MRI/MRA of brain-large left temporoparietal CVA /left MCA infraction CT head non contrast : no hge appreciate input from Neurology hx of Mechanical aortic valve , Afib , high risk for repeat embolic stroke with out anticoagulation on board started on PO Coumadin without bridge therapy as per Neuro recommendation with any neurological change , Coumadin will be kept on hold and stat CT head needs to be done to r/o Intracranial Hge Confusion/metabolic encephalopathy resolved mental status at baseline Abnormal movement/hemiballistics movement Of right extremity: resolved neurology following Possible secondary to acute CVA, discussed with neurology, usually seen in subthalamic infarction (2) S/P AVR (aortic valve replacement): hx of aortic arch aneurysm, status post mechanical aortic valve replacement in at [facility]. Has been on Coumadin, recently INR level has been difficult to adjust. Recent Admission at [facility] July 2020 with supratherapeutic INR of 6, and lower GI bleed. Scheduled for repeat endoscopy on 09/03/2020, patient was placed on Lovenox bridge Coumadin been resumed post procedure, presents with INR 1.4/And acute CVA High risk for mechanical valve thrombus causing embolic phenomena/stroke Transthoracic echo ordered, no valve thrombus noted Briefly discussed the case with on-call cardiology Coumadin resumed as discussed above History of paroxysmal A. fib: Anticoagulation as outlined above CODE STATUS:DNR/DNI Disposition: stable to transfer out of ICU Pt/OT/speech eval requested pt may need acute rehab updated over phone Admission and Anticipated Discharge Date Admission Date: September 11, 2020 Subjective pt is awake and alert today lucid , conversing appropriately dysarthria /expressive aphasia noted able to lift rt arm , have persisted weakness on right side no fever or chills no cough no SOB or chest pain vitals remains stable Review of Systems Review of Systems: All systems reviewed & are unremarkable except as noted in HPI & below Constitutional: + weakness (rt sided weakness ); no fever and no fatigue Cardiovascular: no chest pain, no dyspnea and no orthopnea Neurologic: + localized weakness (ri sided weakness ), + headache(s) and + abnormal speech (dysarthria , ); no tremor(s), no abnormal movements and no confusion Physical Exam Constitutional: WD/WN, vitals as above Eyes: PERRL, conjunctivae normal, anicteric sclerae + anicteric sclerae and reactive pupils ENMT: external ear and nose normal, oropharynx normal Neck: trachea midline, no thyromegaly Respiratory: normal respiratory effort, lungs clear to auscultation Cardiovascular: RRR, no murmur, no edema Gastrointestinal (Abdomen): normal bowel sounds, soft, nontender, no hepatosplenomegaly Skin: no rashes, warm and dry Neurologic: + focal motor deficit (rt sided weakness ) and awake Speech / Cognition: + abnormal speech (dysarthria ) and + expressive aphasia Motor/Sensory: no tremor, normal movement and no asterixis Results & Data Results & Data ([facility]) Vital Signs (Past 12 Hours) Vital Signs Temp Pulse Pulse Resp BP BP BP 09/12/20 15:40 96 H 20 192/78 H 09/12/20 15:07 09/12/20 14:50 09/12/20 13:32 97 H 20 150/85 H 09/12/20 13:00 95 H 17 09/12/20 12:38 93 H 23 134/91 09/12/20 11:38 92 H 24 174/77 H 09/12/20 10:50 97 H 20 150/79 H 09/12/20 09:35 36.7 C 89 19 153/82 H 09/12/20 09:25 153/82 H 09/12/20 08:38 94 H 24 182/85 H 09/12/20 08:35 36.7 C 91 H 14 182/85 H 09/12/20 07:35 36.7 C 92 H 21 156/81 H 09/12/20 06:40 88 18 162/84 H 09/12/20 05:40 36.9 C 91 H 19 130/80 Pulse Ox Pulse Ox 09/12/20 15:40 95 09/12/20 15:07 96 09/12/20 14:50 96 09/12/20 13:32 96 09/12/20 13:00 95 09/12/20 12:38 96 09/12/20 11:38 93 09/12/20 10:50 94 09/12/20 09:35 97 09/12/20 09:25 09/12/20 08:38 95 09/12/20 08:35 97 09/12/20 07:35 90 09/12/20 06:40 95 09/12/20 05:40 94
[2020-09-12] MEDS ORDERED: ACETAMINOPHEN 325 MG TAB PO PRN (17:08)
[2020-09-12] MEDS ORDERED: WARFARIN SOD 5 MG TAB PO ONE (18:00)
[2020-09-12] MEDS: VITAMIN B COMPLEX TAB PO SCH (20:23)
[2020-09-12] MEDS: CHOLECALCIFEROL 1,000 UNITS 25 MCG TAB PO SCH (20:24)
[2020-09-12] MEDS: PANTOprazole 40 MG TAB PO SCH (20:24)
[2020-09-12] MEDS: ADVANCED PROBIOTIC 1250 MG CAPSULE PO SCH (20:25)
[2020-09-12] MEDS: FERROUS SULFATE 325 MG TAB PO SCH (20:25)
[2020-09-12] MEDS: FOLIC ACID 1 MG TAB PO SCH (20:25)
[2020-09-12] MEDS: ROSUVASTATIN CALCIUM 10 MG TAB PO SCH (20:26)
[2020-09-13 04:28] LABS: Appearance Urine Clear (Clear); Bacteria Urine Automated Negative (Negative); Bilirubin Urine Negative (Negative); Blood Urine 1+ (Negative); Color Urine Dark Yellow; Glucose Urine UA Negative (Negative); Ketones Urine Trace (Negative); Leukocyte Esterase Urine 2+ (Negative); Nitrite Urine Negative (Negative); Protein Urine 1+ (Negative); Specific Gravity Urine 1.018 (1.000-1.030); Urobilinogen Urine Negative (Negative); WBC Urine Automated >30 /hpf (0-5)
[2020-09-13 06:19] LABS: Estimated Average Glucose 128 mg/dl; Hemoglobin A1C 6.1 % (4.5-5.6)
--- NOTE | 2020-09-13 06:22 | Electrocardiogram Report ---
Test Reason : Blood Pressure : / mmHG Vent. Rate : 087 BPM Atrial Rate : 087 BPM P-R Int : 200 ms QRS Dur : 128 ms QT Int : 410 ms P-R-T Axes : -30 -55 048 degrees QTc Int : 493 ms Sinus rhythm with Premature atrial complexes Left axis deviation Left ventricular hypertrophy with QRS widening Abnormal ECG When compared with ECG of 15-JUL-2020 16:13, No significant change Confirmed by Daryn Hernandes ([id number]) on 09/13/2020 6:22:17 AM Referred By: Confirmed By:Daryn Hernandes
[2020-09-13] MEDS: ASPIRIN 81 MG ECTAB PO SCH (08:28)
[2020-09-13] MEDS: PARoxetine HCL 20 MG TAB PO SCH (08:29)
[2020-09-13] MEDS: ASCORBIC ACID 500 MG TAB PO SCH (08:29)
[2020-09-13] MEDS: ADVANCED PROBIOTIC 1250 MG CAPSULE PO SCH ×2 (08:29→21:28)
[2020-09-13] MEDS: FERROUS SULFATE 325 MG TAB PO SCH ×2 (08:29→21:28)
[2020-09-13] MEDS: allopurinoL 300 MG TAB PO SCH (08:29)
[2020-09-13] MEDS: OMEGA-3 (PURIFIED FISH OIL) 1 GM CAP PO SCH (08:29)
[2020-09-13] MEDS: TAMSULOSIN HCL 0.4 MG CAP PO SCH (08:29)
[2020-09-13] MEDS: CEROVITE ADV FORMULA TAB PO SCH (08:29)
[2020-09-13 12:24] LABS: INR 1.2 (0.9-1.1); Prothrombin Time 12.4 Seconds (9.0-12.0)
--- NOTE | 2020-09-13 15:08 | Neurology Progress Note ---
Date of Service September 13, 2020 Assessment & Plan (1) Acute CVA (cerebrovascular accident): 1. coumadin restarted- continue for INR therapeutic 2. once therapeutic - repeat CT head 3. optimize HTN HLD, DM LDL <70 4. PT/OT speech- for discharge recommendations 5. transfer to tele awaiting bed 6. out patient follow up with neurology 4-6 weeks after discharge form rehab. 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 Pt seen and examined, language better today in that able to state name and occasionally more fluent. No headache. Imp cardioembolic stroke sec to subtherapeutic INR and mechanical valve. Monitor closely, repeat CT head if clinical change and when therapeutic on coumadin. TRANG Fagan MD Joshua Turpin is a 80 year old left-handed male with PMH mechanical aortic valve, pAfib- on coumadin, GI bleed, DM 2, JAMES on CPAP. He was brought to ED [facility] on 09/11/2020 with a sudden onset of slurred speech and right sided weakness. A stroke alert was called and tPa was given. He had a subtherapeutic level INR 1.4 . He was found to have left MCA territory infarct. CT head showed some expected evolution of the infarct but no hemorrhagic transformation. A discussion with cards, Management Engineer, neurology he was restarted on his coumadin and follow up with a CT head once he is at a therapeutic INR. Today he thinks he is doing better but still having alot of issues with his speech. denies CP, SOB, headache, new bowel or bladder issues, +dysphasia, right sided weakness. Review of Systems Review of Systems: All systems reviewed & are unremarkable except as noted in HPI & below and All systems reviewed & are unremarkable except as noted in Subjective Physical Exam Physical Exam: Physical Exam: Constitutional: appearance over nourished, healthy Ears, Nose, Mouth and Throat: mucous membranes moist, no injection and skin normal, eyes normal Cardiovascular: loud opening snap Respiratory: course breath sounds Musculoskeletal: no peripheral edema Skin: no stigmata of neurocutaneous disease noted and normal and intact Eyes: extraocular muscles intact (EOMI) and pupils equal, round and reactive to light (PERRL) NEUROLOGIC EXAMINATION: Mental status: Alert and interactive Oriented to person Speech dysphasia Cranial Nerves smile eye brow raise symmetric Reflexes: Deep tendon reflexes were symmetrical and graded 2/5. down going toes Sensory: decreased sensation, right arm/leg to light and cool touch Coordination: finger to nose Gait/Stance: Posture normal. gait not assessed Motor: pronation of right arm Strength: hand maintainer plant biceps triceps 4+/5, left 5/5, hip flex right 4+/5 left 5/5 Results & Data ([facility]) Vital Signs (Past 12 Hours) Vital Signs Temp Pulse Resp BP Pulse Ox 09/13/20 13:00 109 H 19 09/13/20 12:00 105 H 14 09/13/20 11:00 107 H 24 09/13/20 10:00 96 H 23 09/13/20 09:55 105 H 17 151/85 H 09/13/20 09:00 94 H 18 09/13/20 08:38 95 H 29 H 163/89 H 09/13/20 08:00 36.8 C 98 H 22 09/13/20 07:00 101 H 22 09/13/20 04:28 85 26 H 157/85 H 93 09/13/20 04:00 36.6 C Laboratory Results Abnormal lab results 09/12/20 09/12/20 09/13/20 Range/Units 10:03 16:41 03:42 PT (9.0-12.0) Seconds INR (0.9-1.1) POC Glucose 153 H (70-99) mg/dl Hemoglobin A1c 6.1 H (4.5-5.6) % Urine Protein 1+ H (Negative) Urine Ketones Trace H (Negative) Urine Blood 1+ H (Negative) Ur Leukocyte Esterase 2+ H (Negative) Urine WBC (Auto) >30 H (0-5) /hpf Urine RBC (Auto) 5-10 H (0-4) /hpf U Hyaline Cast (Auto) 5-10 H (0-5) /lpf U Epithel Cells (Auto) 5-10 H (0-5) /lpf 09/13/20 Range/Units 11:50 PT 12.4 H (9.0-12.0) Seconds INR 1.2 H (0.9-1.1) POC Glucose (70-99) mg/dl Hemoglobin A1c (4.5-5.6) % Urine Protein (Negative) Urine Ketones (Negative) Urine Blood (Negative) Ur Leukocyte Esterase (Negative) Urine WBC (Auto) (0-5) /hpf Urine RBC (Auto) (0-4) /hpf U Hyaline Cast (Auto) (0-5) /lpf U Epithel Cells (Auto) (0-5) /lpf Diagnostic Findings CT head - 09/11/2020-Expected evolution of the left MCA territory infarct. No evidence for hemorrhagic transformation.
[2020-09-13] MEDS: WARFARIN SOD 5 MG TAB PO SCH (16:09)
--- NOTE | 2020-09-13 17:40 | Hospitalist Progress Note ---
Date of Service September 13, 2020 Assessment & Plan (1) Acute CVA (cerebrovascular accident): Presented with acute CVA, Patient was within the window of TPA administration Stroke alert was called, patient evaluated by [place] neuro telemetry/received tPA MRI/MRA of brain-large left temporoparietal CVA /left MCA infraction repeat CT head non contrast post tPA : no hge appreciate input from Neurology hx of Mechanical aortic valve , Afib , high risk for repeat embolic stroke with out anticoagulation on board started on PO Coumadin without bridge therapy as per Neuro recommendation pt continues to do well appreciate input from PT/OT /speech therapy will benefit with acute rehab CM following Confusion/metabolic encephalopathy resolved mental status at baseline Abnormal movement/hemiballistics movement Of right extremity: resolved neurology following Possible secondary to acute CVA, discussed with neurology, usually seen in subthalamic infarction (2) S/P AVR (aortic valve replacement): hx of aortic arch aneurysm, status post mechanical aortic valve replacement in at [facility]. Has been on Coumadin, recently INR level has been difficult to adjust. Recent Admission at [facility] July 2020 with supratherapeutic INR of 6, and lower GI bleed. patient was placed on Lovenox bridge for recent EGD Coumadin been resumed post procedure, presents with INR 1.4/And acute CVA High risk for mechanical valve thrombus causing embolic phenomena/stroke Transthoracic echo- no valve thrombus noted Briefly discussed the case with on-call cardiology Coumadin resumed as discussed above given high risk for future CVA , needs close monitoring of INR at coag clinic Coumadin should not be interrupted except for life threatening bleed for risk for thrombotic event HTN: BP meds kept on hold during admission permissive hypertension allowed for ist 48 hrs resumed out pt meds History of paroxysmal A. fib: Anticoagulation as outlined above CODE STATUS:DNR/DNI Disposition: medically stable to transfer to acute rehab when accepted Admission and Anticipated Discharge Date Admission Date: September 11, 2020 Subjective sitting up on chair able to feed himself still has rt sided weakness dysarthria /expressive aphasia Review of Systems Review of Systems: All systems reviewed & are unremarkable except as noted in HPI & below Physical Exam Constitutional: WD/WN, vitals as above Eyes: PERRL, conjunctivae normal, anicteric sclerae + anicteric sclerae and reactive pupils ENMT: external ear and nose normal, oropharynx normal Neck: trachea midline, no thyromegaly Respiratory: normal respiratory effort, lungs clear to auscultation Cardiovascular: RRR, no murmur, no edema Gastrointestinal (Abdomen): normal bowel sounds, soft, nontender, no hepatosplenomegaly Skin: no rashes, warm and dry Neurologic: + focal motor deficit (rt sided weakness ) and awake Speech / Cognition: + abnormal speech (dysarthria ) and + expressive aphasia Psychiatric: A+Ox3, euthymic affect Results & Data Results & Data ([facility]) Vital Signs (Past 12 Hours) Vital Signs Temp Pulse Pulse Resp BP BP 09/13/20 16:16 37.2 C 107 H 16 164/79 H 09/13/20 16:00 98 H 09/13/20 15:00 106 H 22 09/13/20 14:00 108 H 20 09/13/20 13:00 109 H 19 09/13/20 12:00 105 H 14 09/13/20 11:00 107 H 24 09/13/20 10:00 96 H 23 09/13/20 09:55 105 H 17 151/85 H 09/13/20 09:00 94 H 18 09/13/20 08:38 95 H 29 H 163/89 H 09/13/20 08:00 36.8 C 98 H 22 09/13/20 07:00 101 H 22
[2020-09-13] MEDS: METOPROLOL SUCC 50MG EXT REL TAB PO SCH (19:25)
[2020-09-13] MEDS: CHOLECALCIFEROL 1,000 UNITS 25 MCG TAB PO SCH (21:28)
[2020-09-13] MEDS: lisinopril 2.5 MG TAB PO SCH (21:28)
[2020-09-13] MEDS: FOLIC ACID 1 MG TAB PO SCH (21:28)
[2020-09-13] MEDS: VITAMIN B COMPLEX TAB PO SCH (21:28)
[2020-09-13] MEDS: PANTOprazole 40 MG TAB PO SCH (21:28)
[2020-09-13] MEDS: ROSUVASTATIN CALCIUM 10 MG TAB PO SCH (21:28)
[2020-09-14] MEDS ORDERED: MICONAZOLE NITRATE POWDER 43 GM EXT PRN (03:33)
[2020-09-14] MEDS: VITAMIN A 25,000 UNIT CAP PO SCH (08:03)
[2020-09-14] MEDS: METOPROLOL SUCC 50MG EXT REL TAB PO SCH (08:03)
[2020-09-14] MEDS: FERROUS SULFATE 325 MG TAB PO SCH ×2 (08:04→20:50)
[2020-09-14] MEDS: TAMSULOSIN HCL 0.4 MG CAP PO SCH (08:04)
[2020-09-14] MEDS: ASPIRIN 81 MG ECTAB PO SCH (08:04)
[2020-09-14] MEDS: PARoxetine HCL 20 MG TAB PO SCH (08:04)
[2020-09-14] MEDS: ADVANCED PROBIOTIC 1250 MG CAPSULE PO SCH ×2 (08:04→20:50)
[2020-09-14 12:18] LABS: INR 1.2 (0.9-1.1); Prothrombin Time 12.3 Seconds (9.0-12.0)
--- NOTE | 2020-09-14 16:01 | Neurology Progress Note ---
Date of Service September 14, 2020 Assessment & Plan (1) Acute CVA (cerebrovascular accident): 1. coumadin restarted- continue for INR therapeutic- 09/14- 1.2 will need to bridge with heparin gtt till therapeutic on coumadin 2.5-3.5 goal- has only received 1 dose 2nd dose tonight 5 mg 2. once therapeutic - repeat CT head- when starting heparin gtt repeat CT head- then start heparin gtt with no loading dose 3. optimize HTN HLD, DM LDL <70 4. PT/OT speech- for discharge recommendations- [facility] evaluation 5. currently on tele and isolation 6. out patient follow up with neurology 4-6 weeks after discharge form rehab. (2) residential current use of anticoagulant therapy: (3) Hx of aortic valve replacement, mechanical: Admission and Anticipated Discharge Date Admission Date: September 11, 2020 Supervising Physician Co-Signing Physician Notes I have seen and discussed above patient with Dr Yolette Fagan, neurology Pt seen and examined. Spoke with , nursing and texted Dr Garcia. Pt has minor frontal headache, requests ointment for psoriasis, some anterior neck soreness. No deformity is noted, L anterior chest wall echymoses. Neck supple, no field cut. Mild dysarthria, significant diff with word finding, reps ( although melodically preserved). and follows 2/3 step commands. some coughing with minced meat, but able to swallow applesauce without difficulty. RUE approx 4/5, RLE 4+/5 Pt with embolic infarct l mca, related to subtherapeutic INR, mechanical valve ap TPA. Concerned that 3 d later INR is subtherapeutic. P If CT head tonight shows no hemorrhagic transformation then start IV heparin without bolus until therapeutic. Rescan if new sx and when INR is therapeutic. Discussed with pt and his . They understand the risk/benefit. Rec downgrade diet and monitor until seen by speech. TRANG Fagan MD Subjective . Papi is a 80 year old left-handed male with PMH mechanical aortic valve, pAfib- on coumadin, GI bleed, DM 2, JAMES on CPAP. He was brought to ED [facility] on 09/11/2020 with a sudden onset of slurred speech and right sided weakness. A stroke alert was called and tPa was given. He had a subtherapeutic level INR 1.4. He was found to have left MCA territory infarct. CT head showed some expected evolution of the infarct but no hemorrhagic transformation. A discussion with cards, Pres[facility], neurology he was restarted on his coumadin and follow up with a CT head once he is at a therapeutic INR. Today he thinks he is doing better but still having alot of issues with his speech. He is trying to say his first and last name written on a paper. Can say Papi but not Chau. denies CP, SOB, headache, new bowel or bladder issues, +dysphasia, right sided weakness Review of Systems Review of Systems: All systems reviewed & are unremarkable except as noted in HPI & below and All systems reviewed & are unremarkable except as noted in Subjective Physical Exam Physical Exam: Physical Exam: Constitutional: appearance over nourished, healthy Ears, Nose, Mouth and Throat: mucous membranes moist, no injection and skin normal, eyes normal Cardiovascular: loud opening snap Respiratory: course breath sounds Musculoskeletal: no peripheral edema Skin: no stigmata of neurocutaneous disease noted and normal and intact Eyes: extraocular muscles intact (EOMI) and pupils equal, round and reactive to light (PERRL) NEUROLOGIC EXAMINATION: Mental status: Alert and interactive Oriented to person Speech dysphasia Cranial Nerves smile eye brow raise symmetric Reflexes: Deep tendon reflexes were symmetrical and graded 2/5. down going toes Sensory: decreased sensation, right arm/leg to light and cool touch Coordination: finger to nose Gait/Stance: Posture normal. 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
[2020-09-14] MEDS: WARFARIN SOD 5 MG TAB PO SCH (16:42)
--- NOTE | 2020-09-14 17:23 | Hospitalist Progress Note ---
Date of Service September 14, 2020 Assessment & Plan (1) Acute CVA (cerebrovascular accident): Presented with acute CVA, Patient was within the window of TPA administration Stroke alert was called, patient evaluated by [place] neuro telemetry/received tPA MRI/MRA of brain-large left temporoparietal CVA /left MCA infraction repeat CT head non contrast post tPA : no hge , expected evolution of left MCA stroke appreciate input from Neurology hx of Mechanical aortic valve , Afib - started on PO Coumadin. goal INR 2.5-3.5 INR remains subtherapeutic 1.2 per neurology : recommends repeat CT head- non contrast today , if no evidence of hge start on IV heparin gtt low dose , no blous /cont Coumadin 5 mg daily high risk for repeat embolic stroke with out adequate anticoagulation -pt will need hospital stay till INR therapeutic - out patient follow up with neurology 4-6 weeks after discharge form rehab. Hyperlipidemia : LDL 33 ,with in goal cont home dose of statin Confusion/metabolic encephalopathy due to acute CVA resolved mental status at baseline (2) S/P AVR (aortic valve replacement): hx of aortic arch aneurysm, status post mechanical aortic valve replacement in [facility]s at [facility]. Has been on Coumadin, recently INR level has been difficult to adjust. Recent Admission at [facility] July 2020 with supratherapeutic INR of 6, and lower GI bleed. patient was placed on Lovenox bridge for recent EGD Coumadin been resumed post procedure, admitted with acute Left MCA CVA /INR 1.4 High risk for mechanical valve thrombus causing embolic phenomena/stroke-count coumadin /low dose IV heparin bridge Transthoracic echo- mechanical valve not well visualized , normal gradient noted - given high risk for future CVA , needs close monitoring of INR at coag clinic Coumadin should not be interrupted except for life threatening bleed for risk for thrombotic event Dysphagia /Dysarthria : appreciate input from speech pt was ordered mechanical soft diet noted to having difficulty in swallowing , coughing spells during meals diet changed to Pureed speech need to re evaluate pt in AM will need continued speech and swallow therapt at rehab HTN: resumed home BP meds History of paroxysmal A. fib: Anticoagulation as outlined above CODE STATUS:DNR/DNI Disposition: will need acute rehab for PT/OT and speech therapy referral made for [facility] to monitor in tele till INR therapeutic Admission and Anticipated Discharge Date Admission Date: September 11, 2020 Subjective offers no new complain having difficulty with mechanical soft diet , persistent dysarthria rt sided weakness no fever or chills no headache or visual symptoms Review of Systems Constitutional: + weakness (rt sided weakness ); no fever and no fatigue Neurologic: + localized weakness (ri sided weakness ), + headache(s) and + abnormal speech (dysarthria , ); no tremor(s), no abnormal movements and no confusion Physical Exam Constitutional: WD/WN, vitals as above Eyes: PERRL, conjunctivae normal, anicteric sclerae + anicteric sclerae and reactive pupils ENMT: external ear and nose normal, oropharynx normal Neck: trachea midline, no thyromegaly Respiratory: normal respiratory effort, lungs clear to auscultation Cardiovascular: RRR, no murmur, no edema Gastrointestinal (Abdomen): normal bowel sounds, soft, nontender, no hepatosplenomegaly Skin: no rashes, warm and dry Neurologic: + focal motor deficit (rt sided weakness ) and awake Speech / Cognition: + abnormal speech (dysarthria ) and + expressive aphasia Motor/Sensory: no tremor, normal movement and no asterixis Psychiatric: A+Ox3, euthymic affect Results & Data Results & Data ([facility]) Vital Signs (Past 12 Hours) Vital Signs Temp Pulse Resp BP Pulse Ox 09/14/20 15:22 37.3 C 80 18 146/78 H 94 09/14/20 11:10 36.9 C 79 20 132/80 94 09/14/20 08:48 36.9 C 85 20 161/79 H 91
--- NOTE | 2020-09-14 19:34 | Communication Note ---
Date of Service: September 14, 2020 ATTENDING ADDENDUM : pt reports of non able to sleep since admission had no sleep disturbance prior to stroke says 'pt has been having crying spell in the morning , getting frustrated , depressed for his physical deficit post stroke depression , insomnia is a common sequelae post acute CVA ordered for scheduled dose of trazodone hs , which pt may need to continue on discharge . pt reports of feeling better , cheerful , upset with his limitations post stroke , but appears to coping well if persistent depressive symptoms noted in future May benefit with Psych recommendation for SSRI Lizzy Garcia MD
[2020-09-14] MEDS: ROSUVASTATIN CALCIUM 10 MG TAB PO SCH (20:49)
[2020-09-14] MEDS: FOLIC ACID 1 MG TAB PO SCH (20:49)
[2020-09-14] MEDS: PANTOprazole 40 MG TAB PO SCH (20:51)
[2020-09-14] MEDS: CHOLECALCIFEROL 1,000 UNITS 25 MCG TAB PO SCH (20:52)
[2020-09-14] MEDS: VITAMIN B COMPLEX TAB PO SCH (20:52)
[2020-09-14] MEDS: lisinopril 2.5 MG TAB PO SCH (20:53)
[2020-09-14] MEDS ORDERED: ROSUVASTATIN CALCIUM 20 MG TAB PO SCH (21:00)
--- NOTE | 2020-09-14 21:05 | CT Scan Report ---
CT OF THE HEAD WITHOUT CONTRAST CLINICAL HISTORY: Evaluation of stroke r/o hemorrhagic conversion COMPARISON STUDY: Head CT September 12, 2020. CT DOSE: 853.38 mGy.cm TECHNIQUE: Helical axial images of the head were obtained without IV contrast. Automated exposure con trol was utilized for the study. A dose lowering technique was utilized adhering to the principles o f ALARA. FINDINGS: Note is again made of an acute left temporoparietal infarct within the posterior left MCA d istribution. Note is made of interval development of several several punctate hyperdense foci within the infarct. This may reflect trace hemorrhage. Mass effect is stable. Basal cisterns are patent. The re are no extra axial collections. Ventricular system is stable. There is no calvarial fracture. Visu alized portions of the sinuses and mastoid air cells are clear. IMPRESSION: Interval development of several punctate hyperdense foci within the posterior left MCA te rritory infarct. This could reflect trace hemorrhage. A follow-up head CT in 24 hours is recommended. ACT 112: Negative or not required by law. Electronically signed by: Brandon Burnham M.D. 09/14/2020 9:03 PM
[2020-09-14] MEDS: traZODone HCL 50 MG TAB PO SCH (22:18)
--- NOTE | 2020-09-14 22:34 | Progress Notes ---
DATE: 09/14/2020 SUBJECTIVE: I have reviewed Mr. Chau's CT of the head, which was performed this evening. It shows an acute left temporoparietal infarct in the posterior left MCA distribution. There is interval development of several punctate hyperdense foci within the infarct, may reflect a trace hemorrhage, mass effect, stable. IMPRESSION: Interval development of several punctate hyperdense foci within the posterior left MCA territory infarct. This could represent trace hemorrhage. Followup CT is recommended in 24 hours. I communicated these results to Dr. Christine who was covering. I still recommend heparin intravenous without bolus. The patient should have a repeat CT tomorrow afternoon to rule out worsening hemorrhagic transformation. In the interim, if the patient has increase in headache or new neurologic symptoms, heparin should be discontinued and the patient rescanned. It has been 3 days since the patient's stroke and TPA. His INR is still subtherapeutic at 1.2 and I am concerned that the mechanical valve will thrombose and/or the patient will have a recurrent stroke. There is certainly a higher risk of hemorrhagic transformation with the associated use of heparin. I had discussed this previously with his and she understood the risks and benefits. We will continue to follow with you.
[2020-09-14] MEDS ORDERED: Heparin IV Low Dose *NO* Bolus ONE (23:00)
[2020-09-15 06:44] LABS: INR 1.2 (0.9-1.1); Partial Thromboplastin Ratio 1.1; Partial Thromboplastin Time 30.9 Seconds (21.0-31.0); Prothrombin Time 12.4 Seconds (9.0-12.0)
[2020-09-15] MEDS ORDERED: HEPARIN BOLUS IV ONE (07:30)
[2020-09-15] MEDS: TAMSULOSIN HCL 0.4 MG CAP PO SCH (07:52)
[2020-09-15] MEDS: FERROUS SULFATE 325 MG TAB PO SCH ×2 (07:52→20:42)
[2020-09-15] MEDS: OMEGA-3 (PURIFIED FISH OIL) 1 GM CAP PO SCH (07:52)
[2020-09-15] MEDS: CEROVITE ADV FORMULA TAB PO SCH (07:52)
[2020-09-15] MEDS: ADVANCED PROBIOTIC 1250 MG CAPSULE PO SCH ×2 (07:53→20:42)
[2020-09-15] MEDS: METOPROLOL SUCC 50MG EXT REL TAB PO SCH (07:53)
[2020-09-15] MEDS: ASCORBIC ACID 500 MG TAB PO SCH (07:53)
[2020-09-15] MEDS: VITAMIN A 25,000 UNIT CAP PO SCH (07:53)
[2020-09-15] MEDS: allopurinoL 300 MG TAB PO SCH (07:53)
[2020-09-15] MEDS: PARoxetine HCL 20 MG TAB PO SCH (07:53)
--- NOTE | 2020-09-15 09:18 | Hospitalist Progress Note ---
Date of Service September 15, 2020 Assessment & Plan (1) Acute CVA (cerebrovascular accident): Presented with acute CVA, Patient was within the window of TPA administration Stroke alert was called, patient evaluated by [place] neuro telemetry/received tPA MRI/MRA of brain-large left temporoparietal CVA /left MCA infraction repeat CT head non contrast post tPA : no hge , expected evolution of left MCA stroke appreciate input from Neurology hx of Mechanical aortic valve , Afib - started on PO Coumadin. goal INR 2.5-3.5 INR remains subtherapeutic per neurology : recommends repeat CT head- non contrast today, if no evidence of hge start on IV heparin gtt low dose , no blous /cont Coumadin [address] head (09/14) - Interval development of several punctate hyperdense foci within the posterior left MCA territory infarct. This could represent trace hemorrhage. Follow up CT is recommended in 24 hours. Neurology still recommend heparin IV without bolus. The patient should have a repeat CT on 09/15 afternoon to rule out worsening hemorrhagic transformation. High risk for repeat embolic stroke without adequate anticoagulation -pt will need hospital stay till INR therapeutic - outpatient follow up with neurology 4-6 weeks after discharge form rehab. Hyperlipidemia : LDL 33 ,with in goal cont home dose of statin Confusion/metabolic encephalopathy due to acute CVA resolved mental status at baseline (2) S/P AVR (aortic valve replacement): hx of aortic arch aneurysm, status post mechanical aortic valve replacement in at [facility]. Has been on Coumadin, recently INR level has been difficult to adjust. Recent Admission at [facility] July 2020 with supratherapeutic INR of 6, and lower GI bleed. patient was placed on Lovenox bridge for recent EGD Coumadin been resumed post procedure, admitted with acute Left MCA CVA /INR 1.4 High risk for mechanical valve thrombus causing embolic phenomena/stroke-count coumadin /low dose IV heparin bridge Transthoracic echo- mechanical valve not well visualized , normal gradient noted - given high risk for future CVA , needs close monitoring of INR at coag clinic Coumadin should not be interrupted except for life threatening bleed for risk for thrombotic event Dysphagia /Dysarthria : appreciate input from speech pt was ordered mechanical soft diet noted to having difficulty in swallowing , coughing spells during meals diet changed to Pureed speech need to re-evaluate pt will need continued speech and swallow therapt at rehab HTN: resumed home BP meds History of paroxysmal A. fib: Anticoagulation as outlined above CODE STATUS:DNR/DNI Disposition: will need acute rehab for PT/OT and speech therapy referral made for [facility] to monitor in tele till INR therapeutic Admission and Anticipated Discharge Date Admission Date: September 11, 2020 Subjective Pt seen in follow up of CVA. Started on IV low dose/ w/o bolus heparin after CT head reviewed by neurology. Currently laying in bed in NAD. Reports he is doing much better since he got to the hospital. He is able to move his RUE but he has significant sensory loss in RUE. He is able to move RLE while laying in bed but pt states it's difficult to ambulate for him. he still has some dysarthria but able to say most words c orrectly. No chest pain, BIGGS, shortness of breath. No abd. pain. No dizziness. Review of Systems Review of Systems: All systems reviewed & are unremarkable except as noted in HPI & below Constitutional: + weakness (rt sided weakness ); no fever and no fatigue Respiratory: no cough and no dyspnea Cardiovascular: no chest pain and no palpitations Gastrointestinal: no abdominal pain and no vomiting Neurologic: + localized weakness (ri sided weakness ) and + abnormal speech (dysarthria , ); no tremor(s), no abnormal movements, no headache(s) and no confusion Physical Exam Physical Exam: Constitutional: WD/WN, vitals as above Eyes: PERRL, conjunctivae normal, anicteric sclerae + anicteric sclerae and reactive pupils ENMT: external ear and nose normal, oropharynx normal Neck: trachea midline, no thyromegaly Respiratory: normal respiratory effort, lungs clear to auscultation Cardiovascular: RRR, + mechan.valve sound, no murmur, no edema Gastrointestinal (Abdomen): normal bowel sounds, soft, nontender Skin: no rashes, warm and dry Neurologic: + focal motor deficit (rt sided weakness ) , able to move RUE but has significant sensory loss in RUE, also able to move RLE while laying in bed, awake Speech / Cognition: + abnormal speech (dysarthria ) and + expressive aphasia Motor/Sensory: no tremor, and no asterixis Psychiatric: A+Ox3, euthymic affect Results & Data Results & Data ([facility]) Vital Signs (Past 12 Hours) Vital Signs Temp Pulse Pulse Resp BP Pulse Ox 09/15/20 07:39 37.1 C 72 16 129/70 92 09/15/20 03:12 36.7 C 78 19 145/72 H 94 09/14/20 23:00 36.5 C 79 19 128/71 91 09/14/20 22:20 72 Laboratory Results 09/15/20 09/14/20 Range/Units 06:07 11:56 PT 12.4 H 12.3 H (9.0-12.0) Seconds INR 1.2 H 1.2 H (0.9-1.1) APTT 30.9 (21.0-31.0) Seconds PTT Ratio 1.1 Medications Administered Current Inpatient Medications Acetaminophen (Acetaminophen 325 Mg Tab) 650 mg PO Q4H PRN PRN Reason: Headache Stop: 10/12/20 17:07 Last Admin: 09/12/20 17:40 Dose: 650 mg Documented by: Allopurinol (Allopurinol 300 Mg Tab) 300 mg PO Q2D [facility] Stop: 10/13/20 08:59 Last Admin: 09/15/20 07:53 Dose: 300 mg Documented by: Ascorbic Acid (Ascorbic Acid 500 Mg Tab) 500 mg PO Q2D@0900 [facility] Stop: 10/13/20 08:59 Last Admin: 09/15/20 07:53 Dose: 500 mg Documented by: Aspirin (Aspirin 81 Mg Ectab) 81 mg PO QAM [facility] Stop: 10/12/20 11:59 Last Admin: 09/14/20 08:04 Dose: 81 mg Documented by: Ferrous Sulfate (Ferrous Sulfate 325 Mg Tab) 325 mg PO BID [facility] Stop: 10/12/20 20:59 Last Admin: 09/15/20 07:52 Dose: 325 mg Documented by: Fish Oil ([place]-3 (Purified Fish Oil) 1 Gm Cap) 1 gm PO Q2D [facility] Stop: 10/13/20 08:59 Last Admin: 09/15/20 07:52 Dose: 1 gm Documented by: Folic Acid (Folic Acid 1 Mg Tab) 1 mg PO PM [facility] Stop: 10/12/20 20:59 Last Admin: 09/14/20 20:49 Dose: 1 mg Documented by: Heparin Sodium/Dextrose (Heparin Sodium/Dextrose) 25,000 units in 500 mls @ 26 mls/hr IV .[id number] [facility]; Protocol Stop: 10/14/20 22:59 Last Titration: 09/15/20 07:06 Dose: 1,300 units/hr, 26 mls/hr Documented by: Lactobacillus Acidoph/Casei/Rhamnos (Advanced Probiotic 1250 Mg Capsule) 2 cap PO BID [facility] Stop: 10/12/20 20:59 Last Admin: 09/15/20 07:53 Dose: 2 cap Documented by: Lisinopril (Lisinopril 2.5 Mg Tab) 2.5 mg PO QPM [facility] Stop: 10/13/20 20:59 Last Admin: 09/14/20 20:53 Dose: 2.5 mg Documented by: Lorazepam (Lorazepam 1 Mg Tab) 1 mg PO TID PRN PRN Reason: Anxiety Stop: 10/12/20 17:12 Metoprolol Succinate (Metoprolol Succ 50mg Ext Rel Tab) 50 mg PO [facility] Stop: 10/13/20 17:59 Last Admin: 09/15/20 07:53 Dose: 50 mg Documented by: Miconazole Nitrate (Miconazole Nitrate Powder 43 Gm) 1 appln EXT PRN PRN PRN Reason: Affected Skin Folds Stop: 10/14/20 03:32 Miscellaneous Information (Pharmacist Discharge Med Rec Consult) 1 ea N/A UD PRN PRN Reason: Consult Stop: 10/11/20 12:53 Multivitamins/Minerals (Cerovite Adv Formula Tab) 1 tab PO Q2D [facility] Stop: 10/13/20 08:59 Last Admin: 09/15/20 07:52 Dose: 1 tab Documented by: Pantoprazole Sodium (Pantoprazole 40 Mg Tab) 40 mg PO PM [facility] Stop: 10/12/20 20:59 Last Admin: 09/14/20 20:51 Dose: 40 mg Documented by: Paroxetine HCl (Paroxetine Hcl 20 Mg Tab) 20 mg PO QAM [facility] Stop: 10/13/20 08:59 Last Admin: 09/15/20 07:53 Dose: 20 mg Documented by: Rosuvastatin Calcium (Rosuvastatin Calcium 10 Mg Tab) 10 mg PO QPM [facility] Stop: 10/14/20 20:59 Last Admin: 09/14/20 20:49 Dose: 10 mg Documented by: Tamsulosin HCl (Tamsulosin Hcl 0.4 Mg Cap) 0.4 mg PO QAM [facility] Stop: 10/13/20 08:59 Last Admin: 09/15/20 07:52 Dose: 0.4 mg Documented by: Trazodone HCl (Trazodone Hcl 50 Mg Tab) 50 mg PO HS [facility] Stop: 10/14/20 20:59 Last Admin: 09/14/20 22:18 Dose: 50 mg Documented by: Vitamin A (Vitamin A 25,000 Unit Cap) 25,000 units PO QAM [facility] Stop: 10/14/20 08:59 Last Admin: 09/15/20 07:53 Dose: 25,000 units Documented by: Vitamin B Complex (Vitamin B Complex Tab) 1 tab PO PM [facility] Stop: 10/12/20 20:59 Last Admin: 09/14/20 20:52 Dose: 1 tab Documented by: Vitamin D (Cholecalciferol 1,000 Units 25 Mcg Tab) 1,000 units PO PM [facility] Stop: 10/12/20 20:59 Last Admin: 09/14/20 20:52 Dose: 1,000 units Documented by: Warfarin Sodium (Warfarin Sod 5 Mg Tab) 5 mg PO DAILY@1600 [facility] Stop: 10/13/20 15:59 Last Admin: 09/14/20 16:42 Dose: 5 mg Documented by:
[2020-09-15 13:42] LABS: Partial Thromboplastin Ratio 1.4; Partial Thromboplastin Time 38.2 Seconds (21.0-31.0)
--- NOTE | 2020-09-15 14:21 | Neurology Progress Note ---
Date of Service September 15, 2020 Assessment & Plan (1) Acute CVA (cerebrovascular accident): 1. coumadin restarted- continue for INR therapeutic- 09/14- 1.2 will need to bridge with heparin gtt till therapeutic on coumadin 2.5-3.5 goal- 5 mg given 09/12,09/13,09/14 verified home dose with pharmacy on 5mg every other day alternating with 10 mg on other days. 2. once therapeutic - started heparin gtt repeat CT head 24 hours after start of heparin gtt 3. optimize HTN HLD, DM LDL <70 4. PT/OT speech- for discharge recommendations- [facility] evaluation 5. currently on tele and isolation 6. out patient follow up with neurology 4-6 weeks after discharge form rehab. 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 Pt seen and examined. No headache. CT head show no strong evidence of hemorrhagic transformation. Still with marked diff with expression, >receptive language, No field cut, facial asymm. RUE 4, RLE 4+, equal LT. L mca infarct, cardioembolic related to subther INR, mechanical valve. Heparin started as coumadin is used and drifts to therapeutic. Rec CT head if sx change and when pt is therapeutic on coumadin. TRANG Fagan MD Joshua Turpin is a 80 year old left-handed male with PMH mechanical aortic valve, pAfib- on coumadin, GI bleed, DM 2, JAMES on CPAP. He was brought to ED [facility] on 09/11/2020 with a sudden onset of slurred speech and right sided weakness. A stroke alert was called and tPa was given. He had a subtherapeutic level INR 1.4. He was found to have left MCA territory infarct. CT head showed some expected evolution of the infarct but no hemorrhagic transformation. 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 Today he thinks he is doing better but still having alot of issues with his speech. He is trying to say his first and last name written on a paper. Can say Papi but not Kandi. He states at home he was taking Coumadin 5 mg and every other day 2 tablets. He has been receiving in the hospital 5 mg for the past 3 days according to pharmacy. denies CP, SOB, headache, new bowel or bladder issues, +dysphasia, right sided weakness Physical Exam Physical Exam: Physical Exam: Constitutional: appearance over nourished, healthy Ears, Nose, Mouth and Throat: mucous membranes moist, no injection and skin normal, eyes normal Cardiovascular: loud opening snap Respiratory: course breath sounds Musculoskeletal: no peripheral edema Skin: no stigmata of neurocutaneous disease noted and normal and intact Eyes: extraocular muscles intact (EOMI) and pupils equal, round and reactive to light (PERRL) NEUROLOGIC EXAMINATION: Mental status: Alert and interactive Oriented to person Speech dysphasia Cranial Nerves smile eye brow raise symmetric Reflexes: Deep tendon reflexes were symmetrical and graded 2/5. down going toes Sensory: decreased sensation, right arm/leg to light and cool touch Coordination: finger to nose Gait/Stance: Posture normal. gait not assessed Motor: pronation of right arm Strength: hand grip5/5 biceps triceps right 4+/5 deltoid 4/5 , left 5/5, hip flex right 5/5 left 5/5 Results & Data ([facility]) Vital Signs (Past 12 Hours) Vital Signs Temp Pulse Resp BP Pulse Ox 09/15/20 11:41 36.5 C 75 16 113/59 L 92 09/15/20 07:39 37.1 C 72 16 129/70 92 09/15/20 03:12 36.7 C 78 19 145/72 H 94 Laboratory Results Abnormal lab results 09/15/20 09/15/20 Range/Units 06:07 13:13 PT 12.4 H (9.0-12.0) Seconds INR 1.2 H (0.9-1.1) APTT 38.2 H (21.0-31.0) Seconds Diagnostic Findings CT head-Interval development of several punctate hyperdense foci within the posterior left MCA territory infarct. This could reflect trace hemorrhage. A follow-up head CT in 24 hours is recommended.
--- NOTE | 2020-09-15 16:14 | CT Scan Report ---
HEAD CT NONCONTRAST CT DOSE: 823.94 mGycm HISTORY: on iv heparin. Assess for intracranial hemorrhage. Recent left MCA territory infarct. TECHNIQUE: Multiaxial CT images of the head were performed without the use of intravenous contrast. A utomated exposure control was utilized for this study. A dose lowering technique was utilized adheri ng to the principles of ALARA. Comparison: Head CT 09/14/2020. Findings: The paranasal sinuses and mastoid air cells are clear. The calvarium and skull base are int act. There is no mass, hematoma, midline shift. No change in the moderate-sized left MCA territory in farct. Punctate hyperdense foci at the area of infarct appear to have resolved. No evidence for hemor rhagic transformation. No significant mass effect. Impression: Redemonstration of the left MCA territory infarct. The punctate hyperdense foci within the area of in farct have essentially resolved. Therefore, no evidence for hemorrhagic transformation. ACT 112: Negative or not required by law. Electronically signed by: Alonso Madrigal M.D. 09/15/2020 4:13 PM
[2020-09-15] MEDS ORDERED: ASPIRIN 81 MG ECTAB PO STA (16:55)
[2020-09-15] MEDS ORDERED: WARFARIN SOD 2 MG TAB PO ONE (16:55)
[2020-09-15] MEDS: WARFARIN SOD 5 MG TAB PO SCH (17:20)
[2020-09-15 20:26] LABS: Partial Thromboplastin Ratio 1.5; Partial Thromboplastin Time 41.9 Seconds (21.0-31.0)
[2020-09-15] MEDS: traZODone HCL 50 MG TAB PO SCH (20:41)
[2020-09-15] MEDS: ROSUVASTATIN CALCIUM 10 MG TAB PO SCH (20:41)
[2020-09-15] MEDS: lisinopril 2.5 MG TAB PO SCH (20:41)
[2020-09-15] MEDS: CHOLECALCIFEROL 1,000 UNITS 25 MCG TAB PO SCH (20:42)
[2020-09-15] MEDS: FOLIC ACID 1 MG TAB PO SCH (20:42)
[2020-09-15] MEDS: VITAMIN B COMPLEX TAB PO SCH (20:42)
[2020-09-15] MEDS: PANTOprazole 40 MG TAB PO SCH (20:42)
[2020-09-15] MEDS: HEPARIN SODIUM/DEXTROSE 25,000 UNITS/500 ML BAG IV SCH ×2 (20:47)
[2020-09-16 02:39] LABS: Hemoglobin 11.9 g/dL (14.0-18.0); Mean Corpuscular Hemoglobin 32.8 pg (25-34); Mean Corpuscular Volume 96.4 fL (80-100); Mean Platelet Volume 10.1 fL (7.4-10.4); Platelet Count 161 K/uL (130-400); RDW Coefficient of Variation 13.7 % (11.5-14.5); Red Blood Count 3.63 M/uL (4.7-6.1); White Blood Count 6.71 K/uL (4.8-10.8)
[2020-09-16 03:02] LABS: BUN Creatinine Ratio 25.7 (10-20); Calcium 8.8 mg/dl (8.5-10.1); Creatinine Clr Calc Pharmacy 57.4 ml/min; Est GFR (Non-African American) 48.3; Potassium 3.7 mmol/L (3.5-5.1)
[2020-09-16 03:11] LABS: INR 1.3 (0.9-1.1); Partial Thromboplastin Ratio 1.9; Prothrombin Time 13.4 Seconds (9.0-12.0)
[2020-09-16 03:17] LABS: Partial Thromboplastin Time 52.6 Seconds (21.0-31.0)
--- NOTE | 2020-09-16 08:03 | Hospitalist Progress Note ---
Date of Service September 16, 2020 Assessment & Plan (1) Acute CVA (cerebrovascular accident): Presented with acute CVA, Patient was within the window of TPA administration Stroke alert was called, patient evaluated by [facility] neuro telemetry/received tPA MRI/MRA of brain-large left temporoparietal CVA /left MCA infraction repeat CT head non contrast post tPA : no hge , expected evolution of left MCA stroke appreciate input from Neurology hx of Mechanical aortic valve , Afib - started on PO Coumadin. Increased dose on 09/15, goal INR 2.5-3.5 INR remains subtherapeutic per neurology : recommends repeat CT head- non contrast today, if no evidence of hge start on IV heparin gtt low dose , no blous /cont Coumadin [address] head (09/14) - Interval development of several punctate hyperdense foci within the posterior left MCA territory infarct. This could represent trace hemorrhage. Follow up CT is recommended in 24 hours. Neurology still recommend heparin IV without bolus. The patient should have a repeat CT on 09/15 afternoon to rule out worsening hemorrhagic transformation. Repeat CT 09/15/2020 - Redemonstration of the left MCA territory infarct. The punctate hyperdense foci within the area of infarct have essentially resolved. Therefore, no evidence for hemorrhagic transformation. High risk for repeat embolic stroke without adequate anticoagulation -pt will need hospital stay till INR therapeutic - outpatient follow up with neurology 4-6 weeks after discharge form rehab. Hyperlipidemia : LDL 33 ,with in goal cont home dose of statin Confusion/metabolic encephalopathy due to acute CVA resolved mental status at baseline (2) S/P AVR (aortic valve replacement): hx of aortic arch aneurysm, status post mechanical aortic valve replacement in at [facility]. Has been on Coumadin, recently INR level has been difficult to adjust. Recent Admission at [facility] July 2020 with supr atherapeutic INR of 6, and lower GI bleed. patient was placed on Lovenox bridge for recent EGD Coumadin been resumed post procedure, admitted with acute Left MCA CVA /INR 1.4 High risk for mechanical valve thrombus causing embolic phenomena/stroke-count coumadin /low dose IV heparin bridge Transthoracic echo- mechanical valve not well visualized , normal gradient noted - given high risk for future CVA , needs close monitoring of INR at [facility] Coumadin should not be interrupted except for life threatening bleed for risk for thrombotic event Dysphagia /Dysarthria : appreciate input from speech pt was ordered mechanical soft diet noted to having difficulty in swallowing , coughing spells during meals diet changed to Pureed speech need to re-evaluate pt will need continued speech and swallow therapt at rehab HTN: resumed home BP meds History of paroxysmal A. fib: Anticoagulation as outlined above CODE STATUS:DNR/DNI Disposition: will need acute rehab for PT/OT and speech therapy referral made for [facility] to monitor in tele till INR therapeutic Admission and Anticipated Discharge Date Admission Date: September 11, 2020 Subjective Pt seen in follow up of CVA. Started on IV low dose/ w/o bolus heparin after CT head reviewed by neurology. Currently sitting up in bed in NAD. He says he feels well. No BIGGS. He is able to move his RUE but he has significant sensory loss in RUE. He is able to move RLE while laying in bed but pt states it's difficult to ambulate for him. he still has some dysarthria , speaks slowly but able to say most words correctly. No chest pain, BIGGS, shortness of breath. No abd. pain. No dizziness. Warfarin dose increased yesterday, INR still subtherapeutic. Review of Systems Review of Systems: All systems reviewed & are unremarkable except as noted in HPI & below Constitutional: + weakness (rt sided weakness ); no fever and no fatigue Respiratory: no cough and no dyspnea Cardiovascular: no chest pain and no palpitations Gastrointestinal: no abdominal pain, no nausea and no vomiting Neurologic: + localized weakness (ri sided weakness ) and + abnormal speech (dysarthria , ); no tremor(s), no abnormal movements, no headache(s) and no confusion Physical Exam Physical Exam: Constitutional: WD/WN, vitals as above Eyes: PERRL, conjunctivae normal, anicteric sclerae + anicteric sclerae and reactive pupils ENMT: external ear and nose normal, oropharynx normal Neck: trachea midline, no thyromegaly Respiratory: normal respiratory effort, lungs clear to auscultation Cardiovascular: RRR, + mechan.valve sound, no murmur, no edema Gastrointestinal (Abdomen): normal bowel sounds, soft, nontender Skin: no rashes, warm and dry Neurologic: + focal motor deficit (rt sided weakness ) , able to move RUE but has significant sensory loss in RUE, also able to move RLE while laying in bed, awake Speech / Cognition: + abnormal speech (dysarthria ) and + expressive aphasia Motor/Sensory: no tremor, and no asterixis Psychiatric: A+Ox3, euthymic affect Results & Data Results & Data ([facility]) Vital Signs (Past 12 Hours) Vital Signs Temp Pulse Pulse Resp BP Pulse Ox 09/16/20 07:22 36.5 C 78 18 165/76 H 93 09/16/20 07:20 77 09/16/20 02:46 36.6 C 75 16 127/76 94 09/15/20 22:19 72 09/15/20 22:00 36.5 C 75 20 133/75 93 Laboratory Results 09/16/20 09/16/20 09/16/20 Range/Units 02:22 02:22 02:22 WBC 6.71 (4.8-10.8) K/uL RBC 3.63 L (4.7-6.1) M/uL Hgb 11.9 L (14.0-18.0) g/dL Hct 35.0 L (42-52) % MCV 96.4 (80-100) fL MCH 32.8 (25-34) pg MCHC 34.0 (32-36) g/dL RDW Std Deviation 48.0 H (36.4-46.3) fL RDW Coeff of Chadd 13.7 (11.5-14.5) % Plt Count 161 (130-400) K/uL MPV 10.1 (7.4-10.4) fL PT 13.4 H (9.0-12.0) Seconds INR 1.3 H (0.9-1.1) APTT 52.6 H* (21.0-31.0) Seconds PTT Ratio 1.9 Sodium 136 (136-145) mmol/L Potassium 3.7 (3.5-5.1) mmol/L Chloride 104 (98-107) mmol/L Carbon Dioxide 25 (21-32) mmol/L Anion Gap 7.0 (3-11) BUN 35 H (7-18) mg/dl Creatinine 1.38 (0.6-1.4) mg/dl Est Cr Clr Drug Dosing 57.4 ml/min Est GFR ( Amer) 56.0 Est GFR (Non-Af Amer) 48.3 BUN/Creatinine Ratio 25.7 H (10-20) Glucose 166 H (70-99) mg/dl Calcium 8.8 (8.5-10.1) mg/dl 09/15/20 09/15/20 Range/Units 20:01 13:13 WBC (4.8-10.8) K/uL RBC (4.7-6.1) M/uL Hgb (14.0-18.0) g/dL Hct (42-52) % MCV (80-100) fL MCH (25-34) pg MCHC (32-36) g/dL RDW Std Deviation (36.4-46.3) fL RDW Coeff of Chadd (11.5-14.5) % Plt Count (130-400) K/uL MPV (7.4-10.4) fL PT (9.0-12.0) Seconds INR (0.9-1.1) APTT 41.9 H 38.2 H (21.0-31.0) Seconds PTT Ratio 1.5 1.4 Sodium (136-145) mmol/L Potassium (3.5-5.1) mmol/L Chloride (98-107) mmol/L Carbon Dioxide (21-32) mmol/L Anion Gap (3-11) BUN (7-18) mg/dl Creatinine (0.6-1.4) mg/dl Est Cr Clr Drug Dosing ml/min Est GFR ( Amer) Est GFR (Non-Af Amer) BUN/Creatinine Ratio (10-20) Glucose (70-99) mg/dl Calcium (8.5-10.1) mg/dl Medications Administered Current Inpatient Medications Acetaminophen (Acetaminophen 325 Mg Tab) 650 mg PO Q4H PRN PRN Reason: Headache Stop: 10/12/20 17:07 Last Admin: 09/12/20 17:40 Dose: 650 mg Documented by: Allopurinol (Allopurinol 300 Mg Tab) 300 mg PO Q2D [facility] Stop: 10/13/20 08:59 Last Admin: 09/15/20 07:53 Dose: 300 mg Documented by: Ascorbic Acid (Ascorbic Acid 500 Mg Tab) 500 mg PO Q2D@0900 [facility] Stop: 10/13/20 08:59 Last Admin: 09/15/20 07:53 Dose: 500 mg Documented by: Aspirin (Aspirin 81 Mg Ectab) 81 mg PO QAM [facility] Stop: 10/12/20 11:59 Last Admin: 09/14/20 08:04 Dose: 81 mg Documented by: Ferrous Sulfate (Ferrous Sulfate 325 Mg Tab) 325 mg PO BID [facility] Stop: 10/12/20 20:59 Last Admin: 09/15/20 20:42 Dose: 325 mg Documented by: Fish Oil ([place]-3 (Purified Fish Oil) 1 Gm Cap) 1 gm PO Q2D [facility] Stop: 10/13/20 08:59 Last Admin: 09/15/20 07:52 Dose: 1 gm Documented by: Folic Acid (Folic Acid 1 Mg Tab) 1 mg PO PM [facility] Stop: 10/12/20 20:59 Last Admin: 09/15/20 20:42 Dose: 1 mg Documented by: Heparin Sodium/Dextrose (Heparin Sodium/Dextrose) 25,000 units in 500 mls @ 30 mls/hr IV .[id number] [facility]; Protocol Stop: 10/14/20 22:59 Last Titration: 09/16/20 06:58 Dose: 1,500 units/hr, 30 mls/hr Documented by: Lactobacillus Acidoph/Casei/Rhamnos (Advanced Probiotic 1250 Mg Capsule) 2 cap PO BID [facility] Stop: 10/12/20 20:59 Last Admin: 09/15/20 20:42 Dose: 2 cap Documented by: Lisinopril (Lisinopril 2.5 Mg Tab) 2.5 mg PO QPM [facility] Stop: 10/13/20 20:59 Last Admin: 09/15/20 20:41 Dose: 2.5 mg Documented by: Lorazepam (Lorazepam 1 Mg Tab) 1 mg PO TID PRN PRN Reason: Anxiety Stop: 10/12/20 17:12 Metoprolol Succinate (Metoprolol Succ 50mg Ext Rel Tab) 50 mg PO QAM [facility] Stop: 10/13/20 17:59 Last Admin: 09/15/20 07:53 Dose: 50 mg Documented by: Miconazole Nitrate (Miconazole Nitrate Powder 43 Gm) 1 appln EXT PRN PRN PRN Reason: Affected Skin Folds Stop: 10/14/20 03:32 Miscellaneous Information (Pharmacist Discharge Med Rec Consult) 1 ea N/A UD PRN PRN Reason: Consult Stop: 10/11/20 12:53 Multivitamins/Minerals (Cerovite Adv Formula Tab) 1 tab PO Q2D [facility] Stop: 10/13/20 08:59 Last Admin: 09/15/20 07:52 Dose: 1 tab Documented by: Pantoprazole Sodium (Pantoprazole 40 Mg Tab) 40 mg PO PM [facility] Stop: 10/12/20 20:59 Last Admin: 09/15/20 20:42 Dose: 40 mg Documented by: Paroxetine HCl (Paroxetine Hcl 20 Mg Tab) 20 mg PO QAM [facility] Stop: 10/13/20 08:59 Last Admin: 09/15/20 07:53 Dose: 20 mg Documented by: Rosuvastatin Calcium (Rosuvastatin Calcium 10 Mg Tab) 10 mg PO QPM [facility] Stop: 10/14/20 20:59 Last Admin: 09/15/20 20:41 Dose: 10 mg Documented by: Tamsulosin HCl (Tamsulosin Hcl 0.4 Mg Cap) 0.4 mg PO QAM [facility] Stop: 10/13/20 08:59 Last Admin: 09/15/20 07:52 Dose: 0.4 mg Documented by: Trazodone HCl (Trazodone Hcl 50 Mg Tab) 50 mg PO HS [facility] Stop: 10/14/20 20:59 Last Admin: 09/15/20 20:41 Dose: 50 mg Documented by: Vitamin A (Vitamin A 25,000 Unit Cap) 25,000 units PO QAM [facility] Stop: 10/14/20 08:59 Last Admin: 09/15/20 07:53 Dose: 25,000 units Documented by: Vitamin B Complex (Vitamin B Complex Tab) 1 tab PO PM [facility] Stop: 10/12/20 20:59 Last Admin: 09/15/20 20:42 Dose: 1 tab Documented by: Vitamin D (Cholecalciferol 1,000 Units 25 Mcg Tab) 1,000 units PO PM [facility] Stop: 10/12/20 20:59 Last Admin: 09/15/20 20:42 Dose: 1,000 units Documented by: Warfarin Sodium (Warfarin Sod 4 Mg Tab) 8 mg PO DAILY@1600 [facility] Stop: 10/16/20 15:59
[2020-09-16] MEDS: FERROUS SULFATE 325 MG TAB PO SCH ×2 (08:37→20:01)
[2020-09-16] MEDS: ASPIRIN 81 MG ECTAB PO SCH (08:37)
[2020-09-16] MEDS: PARoxetine HCL 20 MG TAB PO SCH (08:38)
[2020-09-16] MEDS: TAMSULOSIN HCL 0.4 MG CAP PO SCH (08:38)
[2020-09-16] MEDS: ADVANCED PROBIOTIC 1250 MG CAPSULE PO SCH ×2 (08:39→20:01)
[2020-09-16] MEDS: VITAMIN A 25,000 UNIT CAP PO SCH (08:39)
[2020-09-16] MEDS: METOPROLOL SUCC 50MG EXT REL TAB PO SCH (12:06)
[2020-09-16] MEDS: HEPARIN SODIUM/DEXTROSE 25,000 UNITS/500 ML BAG IV SCH (15:05)
--- NOTE | 2020-09-16 15:10 | Neurology Progress Note ---
Date of Service September 16, 2020 Assessment & Plan (1) Acute CVA (cerebrovascular accident): 1. coumadin restarted- continue for INR therapeutic- 09/14- 1.2 will need to bridge with heparin gtt till therapeutic on coumadin 2.5-3.5 goal- 5 mg given 09/12,09/13,09/14 verified home dose with pharmacy on 5mg every other day alternating with 10 mg on other days. current 8 mg 2. once therapeutic - started heparin gtt repeat CT head reviewed no concerns- evaluate if left arm needs IV changed- repeat CT head with MS changes 3. optimize HTN HLD, DM LDL <70 4. PT/OT speech- for discharge recommendations- [facility] evaluation 5. currently on tele and isolation 6. out patient follow up with neurology 4-6 weeks after discharge form rehab. (2) retirement current use of anticoagulant therapy: (3) Hx of aortic valve replacement, mechanical: Admission and Anticipated Discharge Date Admission Date: September 11, 2020 Supervising Physician Co-Signing Physician Notes I have seen and discussed above patient with Dr Yolette Fagan, neurology. PT seen and examined. C/o l arm perhaps being less coordinated (my interpretationof pt description) L arm x 2 d, although discussed L arm pain at IV sitevwith AJAY Frank. No headache. Exam awake, alert, no field cut or facial asymm. Expressive >receptive language dysfunction. RUE 4/5, RLE nearly full. LUE seems full, upward R drift, no drift on left. VERONA reducedd on R, appears fairly nml on left. Dystaxia RUE cw weakness, LUE seems, nml. BL LE full. Impression: embolic L MCA infarct with small left cerebellar infarct secon to [facility] valve and subtherappeutic INR. Pt left hemisperhe sx are unchanged. I suspect his L arm sx are with cw the small left cerebellar infarct. He has been imaged last evening and the day prior with no significant hemorrhage or additional infarct. Would monitor. If objective LUE, or of course increased l ehmisphere sx or headache would reimage. Continue heparin until therapeutic on coumadin, Repeat CT head when therapeutic on coumadin. Dr Landry will take over service tomorrow. TRANG Fagan MD Joshua Turpin is a 80 year old left-handed male with PMH mechanical aortic valve, pAfib- on coumadin, GI bleed, DM 2, JAMES on CPAP. He was brought to ED [facility] on 09/11/2020 with a sudden onset of slurred speech and right sided weakness. A stroke alert was called and tPa was given. He had a subtherapeutic level INR 1.4. He was found to have left MCA territory infarct. CT head showed some expected evolution of the infarct but no hemorrhagic transformation. A discussion with cards, He is doing better but still having a lot of issues with his speech. He is trying to say his first and last name written on a paper. Can say Papi but not Kandi. He states at home he was taking Coumadin 5 mg and every other day 2 tablets. He has been receiving in the hospital 5 mg for the past 3 days and was increased to 8 mg daily. He is complaining his left LE was sore today when they tried to walk him. He is also complaining of some irritation in the left arm from the IV. denies CP, SOB, headache, new bowel or bladder issues, +dysphasia, right sided weakness Review of Systems Review of Systems: All systems reviewed & are unremarkable except as noted in HPI & below and All systems reviewed & are unremarkable except as noted in Subjective Physical Exam Physical Exam: Physical Exam: Constitutional: appearance over nourished, healthy Ears, Nose, Mouth and Throat: mucous membranes moist, no injection and skin normal, eyes normal Cardiovascular: loud opening snap Respiratory: course breath sounds Musculoskeletal: no peripheral edema Skin: no stigmata of neurocutaneous disease noted and normal and intact Eyes: extraocular muscles intact (EOMI) and pupils equal, round and reactive to light (PERRL) NEUROLOGIC EXAMINATION: Mental status: Alert and interactive Oriented to person Speech dysphasia expressive aphasia Cranial Nerves smile eye brow raise symmetric Reflexes: Deep tendon reflexes were symmetrical and graded 2/5. down going toes Sensory: decreased sensation, right arm/leg to light and cool touch Coordination: finger to nose Gait/Stance: Posture normal. gait not assessed Motor: pronation of right arm Strength: hand grip5/5 biceps triceps right 4+/5 deltoid 4/5 , left 5/5, hip flex right 5/5 left 5/5 Results & Data ([facility]) Vital Signs (Past 12 Hours) Vital Signs Temp Pulse Pulse Resp BP Pulse Ox 09/16/20 14:37 36.8 C 93 H 18 131/73 93 09/16/20 07:22 36.5 C 78 18 165/76 H 93 09/16/20 07:20 77 Laboratory Results Abnormal lab results 09/15/20 09/16/20 09/16/20 Range/Units 20:01 02:22 02:22 RBC 3.63 L (4.7-6.1) M/uL Hgb 11.9 L (14.0-18.0) g/dL Hct 35.0 L (42-52) % RDW Std Deviation 48.0 H (36.4-46.3) fL PT (9.0-12.0) Seconds INR (0.9-1.1) APTT 41.9 H (21.0-31.0) Seconds BUN 35 H (7-18) mg/dl BUN/Creatinine Ratio 25.7 H (10-20) Glucose 166 H (70-99) mg/dl 09/16/20 Range/Units 02:22 RBC (4.7-6.1) M/uL Hgb (14.0-18.0) g/dL Hct (42-52) % RDW Std Deviation (36.4-46.3) fL PT 13.4 H (9.0-12.0) Seconds INR 1.3 H (0.9-1.1) APTT 52.6 H* (21.0-31.0) Seconds BUN (7-18) mg/dl BUN/Creatinine Ratio (10-20) Glucose (70-99) mg/dl Diagnostic Findings CT head- Redemonstration of the left MCA territory infarct. The punctate hyperdense foci within the area of infarct have essentially resolved. Therefore, no evidence for hemorrhagic transformation.
[2020-09-16] MEDS: WARFARIN SOD 4 MG TAB PO SCH (16:33)
[2020-09-16] MEDS: traZODone HCL 50 MG TAB PO SCH (20:01)
[2020-09-16] MEDS: VITAMIN B COMPLEX TAB PO SCH (20:01)
[2020-09-16] MEDS: CHOLECALCIFEROL 1,000 UNITS 25 MCG TAB PO SCH (20:01)
[2020-09-16] MEDS: PANTOprazole 40 MG TAB PO SCH (20:01)
[2020-09-16] MEDS: FOLIC ACID 1 MG TAB PO SCH (20:01)
[2020-09-16] MEDS: lisinopril 2.5 MG TAB PO SCH (20:01)
[2020-09-16] MEDS: ROSUVASTATIN CALCIUM 10 MG TAB PO SCH (20:01)
[2020-09-16] MEDS: LORazepam 1 MG TAB PO PRN (22:07)
--- NOTE | 2020-09-17 07:13 | Hospitalist Progress Note ---
Date of Service September 17, 2020 Assessment & Plan (1) Acute CVA (cerebrovascular accident): Presented with acute CVA, Patient was within the window of TPA administration Stroke alert was called, patient evaluated by [facility] neuro telemetry/received tPA MRI/MRA of brain-large left temporoparietal CVA /left MCA infraction repeat CT head non contrast post tPA : no hge , expected evolution of left MCA stroke appreciate input from Neurology hx of Mechanical aortic valve , Afib started on PO Coumadin. Increased dose on 09/15, goal INR 2.5-3.5 INR remains subtherapeutic, current INR 1.4 per neurology : recommends repeat CT head- non contrast, if no evidence of hge start on IV heparin gtt low dose , no blous /cont Coumadin [address] head (09/14) - Interval development of several punctate hyperdense foci within the posterior left MCA territory infarct. This could represent trace hemorrhage. Follow up CT is recommended in 24 hours. Neurology still recommend heparin IV without bolus. The patient should have a repeat CT on 09/15 afternoon to rule out worsening hemorrhagic transformation. Repeat CT 09/15/2020 - Redemonstration of the left MCA territory infarct. The punctate hyperdense foci within the area of infarct have essentially resolved. Therefore, no evidence for hemorrhagic transformation. High risk for repeat embolic stroke without adequate anticoagulation -pt will need hospital stay till INR therapeutic - outpatient follow up with neurology 4-6 weeks after discharge form rehab. Hyperlipidemia : LDL 33 ,with in goal cont home dose of statin Confusion/metabolic encephalopathy due to acute CVA resolved mental status at baseline (2) S/P AVR (aortic valve replacement): hx of aortic arch aneurysm, status post mechanical aortic valve replacement in at [facility]. Has been on Coumadin, recently INR level has been difficult to adjust. Recent Admission at [facility] July 2020 with supratherapeutic INR of 6, and lower GI bleed. patient was placed on Lovenox bridge for recent EGD Coumadin been resumed post procedure, admitted with acute Left MCA CVA /INR 1.4 High risk for mechanical valve thrombus causing embolic phenomena/stroke-count coumadin /low dose IV heparin bridge Transthoracic echo- mechanical valve not well visualized , normal gradient noted - given high risk for future CVA , needs close monitoring of [facility]R at [facility] Coumadin should not be interrupted except for life threatening bleed for risk fo r thrombotic event Dysphagia /Dysarthria : appreciate input from speech pt was ordered mechanical soft diet noted to having difficulty in swallowing , coughing spells during meals diet changed to Pureed speech need to re-evaluate pt will need continued speech and swallow therapt at rehab HTN: resumed home BP meds History of paroxysmal A. fib: Anticoagulation as outlined above CODE STATUS:DNR/DNI Disposition: will need acute rehab for PT/OT and speech therapy referral made for [facility] to monitor in tele till INR therapeutic Admission and Anticipated Discharge Date Admission Date: September 11, 2020 Subjective Pt seen in follow up of CVA, subtherap. INR. Pt feeling well, +dysarthria, able to speak slowly, usually can say words correctly if they are not complicated words. Moving extremities better. No headache, no chest pain, shortness of breath, abd. pain, n/v. INR remains subtherapeutic. Review of Systems Review of Systems: All systems reviewed & are unremarkable except as noted in HPI & below Constitutional: + weakness (rt sided weakness ); no fever and no fatigue Respiratory: no cough and no dyspnea Cardiovascular: no chest pain, no palpitations and no edema Gastrointestinal: no abdominal pain, no nausea and no vomiting Neurologic: + localized weakness (ri sided weakness ) and + abnormal speech (dysarthria , ); no tremor(s), no abnormal movements, no headache(s) and no confusion Physical Exam Physical Exam: Constitutional: WD/WN, vitals as above Eyes: PERRL, conjunctivae normal, anicteric sclerae + anicteric sclerae and reactive pupils ENMT: external ear and nose normal, oropharynx normal Neck: trachea midline, no thyromegaly Respiratory: normal respiratory effort, lungs clear to auscultation Cardiovascular: RRR, + mechan.valve sound, no murmur, no edema Gastrointestinal (Abdomen): normal bowel sounds, soft, nontender Skin: no rashes, warm and dry Neurologic: + focal motor deficit (rt sided weakness ) , able to move RUE but has significant sensory loss in RUE, also able to move RLE while laying in bed, awake Speech / Cognition: + abnormal speech (dysarthria ) and + expressive aphasia Motor/Sensory: no tremor, and no asterixis Psychiatric: A+Ox3, euthymic affect Results & Data Results & Data ([facility]) Vital Signs (Past 12 Hours) Vital Signs Temp Pulse Pulse Resp BP Pulse Ox 09/17/20 04:42 36.4 C L 70 18 147/77 H 95 09/17/20 01:30 72 09/16/20 21:56 36.4 C L 72 20 104/62 94 Laboratory Results 09/17/20 09/17/20 Range/Units 08:52 07:07 PT 14.6 H Cancelled INR 1.4 H Cancelled APTT 61.5 H* Cancelled PTT Ratio 2.2 Cancelled Medications Administered Current Inpatient Medications Acetaminophen (Acetaminophen 325 Mg Tab) 650 mg PO Q4H PRN PRN Reason: Headache Stop: 10/12/20 17:07 Last Admin: 09/12/20 17:40 Dose: 650 mg Documented by: Allopurinol (Allopurinol 300 Mg Tab) 300 mg PO Q2D [facility] Stop: 10/13/20 08:59 Last Admin: 09/17/20 08:54 Dose: 300 mg Documented by: Ascorbic Acid (Ascorbic Acid 500 Mg Tab) 500 mg PO Q2D@0900 [facility] Stop: 10/13/20 08:59 Last Admin: 09/17/20 08:53 Dose: 500 mg Documented by: Aspirin (Aspirin 81 Mg Ectab) 81 mg PO QAM [facility] Stop: 10/12/20 11:59 Last Admin: 09/17/20 08:52 Dose: 81 mg Documented by: Ferrous Sulfate (Ferrous Sulfate 325 Mg Tab) 325 mg PO BID [facility] Stop: 10/12/20 20:59 Last Admin: 09/17/20 08:52 Dose: 325 mg Documented by: Fish Oil ([place]-3 (Purified Fish Oil) 1 Gm Cap) 1 gm PO Q2D [facility] Stop: 10/13/20 08:59 Last Admin: 09/17/20 08:53 Dose: 1 gm Documented by: Folic Acid (Folic Acid 1 Mg Tab) 1 mg PO PM [facility] Stop: 10/12/20 20:59 Last Admin: 09/16/20 20:01 Dose: 1 mg Documented by: Heparin Sodium/Dextrose (Heparin Sodium/Dextrose) 25,000 units in 500 mls @ 30 mls/hr IV .[id number] [facility]; Protocol Stop: 10/14/20 22:59 Last Titration: 09/17/20 09:44 Dose: 1,500 units/hr, 30 mls/hr Documented by: Lactobacillus Acidoph/Casei/Rhamnos (Advanced Probiotic 1250 Mg Capsule) 2 cap PO BID [facility] Stop: 10/12/20 20:59 Last Admin: 09/17/20 08:53 Dose: 2 cap Documented by: Lisinopril (Lisinopril 2.5 Mg Tab) 2.5 mg PO QPM [facility] Stop: 10/13/20 20:59 Last Admin: 09/16/20 20:01 Dose: 2.5 mg Documented by: Lorazepam (Lorazepam 1 Mg Tab) 1 mg PO TID PRN PRN Reason: Anxiety Stop: 10/12/20 17:12 Last Admin: 09/16/20 22:07 Dose: 1 mg Documented by: Metoprolol Succinate (Metoprolol Succ 50mg Ext Rel Tab) 50 mg PO QAM [facility] Stop: 10/13/20 17:59 Last Admin: 09/17/20 08:53 Dose: 50 mg Documented by: Miconazole Nitrate (Miconazole Nitrate Powder 43 Gm) 1 appln EXT PRN PRN PRN Reason: Affected Skin Folds Stop: 10/14/20 03:32 Miscellaneous Information (Pharmacist Discharge Med Rec Consult) 1 ea N/A UD PRN PRN Reason: Consult Stop: 10/11/20 12:53 Multivitamins/Minerals (Cerovite Adv Formula Tab) 1 tab PO Q2D [facility] Stop: 10/13/20 08:59 Last Admin: 09/17/20 08:52 Dose: 1 tab Documented by: Pantoprazole Sodium (Pantoprazole 40 Mg Tab) 40 mg PO PM [facility] Stop: 10/12/20 20:59 Last Admin: 09/16/20 20:01 Dose: 40 mg Documented by: Paroxetine HCl (Paroxetine Hcl 20 Mg Tab) 20 mg PO QAM [facility] Stop: 10/13/20 08:59 Last Admin: 09/17/20 08:53 Dose: 20 mg Documented by: Rosuvastatin Calcium (Rosuvastatin Calcium 10 Mg Tab) 10 mg PO QPM [facility] Stop: 10/14/20 20:59 Last Admin: 09/16/20 20:01 Dose: 10 mg Documented by: Tamsulosin HCl (Tamsulosin Hcl 0.4 Mg Cap) 0.4 mg PO QAM [facility] Stop: 10/13/20 08:59 Last Admin: 09/17/20 08:52 Dose: 0.4 mg Documented by: Trazodone HCl (Trazodone Hcl 50 Mg Tab) 50 mg PO HS [facility] Stop: 10/14/20 20:59 Last Admin: 09/16/20 20:01 Dose: 50 mg Documented by: Vitamin A (Vitamin A 25,000 Unit Cap) 25,000 units PO QAM [facility] Stop: 10/14/20 08:59 Last Admin: 09/17/20 08:53 Dose: 25,000 units Documented by: Vitamin B Complex (Vitamin B Complex Tab) 1 tab PO PM [facility] Stop: 10/12/20 20:59 Last Admin: 09/16/20 20:01 Dose: 1 tab Documented by: Vitamin D (Cholecalciferol 1,000 Units 25 Mcg Tab) 1,000 units PO PM [facility] Stop: 10/12/20 20:59 Last Admin: 09/16/20 20:01 Dose: 1,000 units Documented by: Warfarin Sodium (Warfarin Sod 4 Mg Tab) 8 mg PO DAILY@1600 [facility] Stop: 10/16/20 15:59 Last Admin: 09/16/20 16:33 Dose: 8 mg Documented by:
[2020-09-17] MEDS: HEPARIN SODIUM/DEXTROSE 25,000 UNITS/500 ML BAG IV SCH (08:00)
[2020-09-17] MEDS: ASPIRIN 81 MG ECTAB PO SCH (08:52)
[2020-09-17] MEDS: FERROUS SULFATE 325 MG TAB PO SCH ×2 (08:52→22:01)
[2020-09-17] MEDS: CEROVITE ADV FORMULA TAB PO SCH (08:52)
[2020-09-17] MEDS: TAMSULOSIN HCL 0.4 MG CAP PO SCH (08:52)
[2020-09-17] MEDS: OMEGA-3 (PURIFIED FISH OIL) 1 GM CAP PO SCH (08:53)
[2020-09-17] MEDS: ADVANCED PROBIOTIC 1250 MG CAPSULE PO SCH ×2 (08:53→22:02)
[2020-09-17] MEDS: VITAMIN A 25,000 UNIT CAP PO SCH (08:53)
[2020-09-17] MEDS: ASCORBIC ACID 500 MG TAB PO SCH (08:53)
[2020-09-17] MEDS: PARoxetine HCL 20 MG TAB PO SCH (08:53)
[2020-09-17] MEDS: METOPROLOL SUCC 50MG EXT REL TAB PO SCH (08:53)
[2020-09-17] MEDS: allopurinoL 300 MG TAB PO SCH (08:54)
[2020-09-17 09:40] LABS: INR 1.4 (0.9-1.1); Partial Thromboplastin Ratio 2.2; Prothrombin Time 14.6 Seconds (9.0-12.0)
[2020-09-17 09:43] LABS: Partial Thromboplastin Time 61.5 Seconds (21.0-31.0)
--- NOTE | 2020-09-17 14:15 | Neurology Progress Note ---
Date of Service September 17, 2020 Assessment & Plan (1) Acute CVA (cerebrovascular accident): 1. coumadin restarted- continue for INR therapeutic- 09/14- 1.2 will need to bridge with heparin gtt till therapeutic on coumadin 2.5-3.5 goal- 5 mg given 09/12,09/13,09/14 verified home dose with pharmacy on 5mg every other day alternating with 10 mg on other days. current 8 mg 2. once therapeutic - started heparin gtt repeat CT head reviewed no concerns- evaluate if left arm needs IV changed- repeat CT head with MS changes- could bridge with coumadin 3. optimize HTN HLD, DM LDL <70 4. PT/OT speech- for discharge recommendations- [facility] evaluation 5. currently on tele and isolation 6. out patient follow up with neurology 4-6 weeks after discharge form rehab. 7. will sign off for now but will be available if needed. 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: (3) Hx of aortic valve replacement, mechanical: Admission and Anticipated Discharge Date Admission Date: September 11, 2020 Supervising Physician Co-Signing Physician Notes I have seen and discussed above patient with Dr Jose Luis Landry, neurology I have reviewed the above note discussed this case with Yolette Gandhi PA-C and reviewed the imaging studies prior neurology notes and at this point I think neurology is going to withdraw from the case and see the patient only as needed and obviously follow-up after discharge from what ever rehabilitation facility is placed in His aphasia is improving his arm function is improving and some of this is due to the hemispheric lesion some of this reflects superimposed cerebellar stroke as well He needs to get his INR back in the range and the process is ongoing but I do not think neurology needs to monitor this any further unless there are changes in his overall status. Certainly if he would have an acute change or decline he is going to need an urgent CT scan just to be sure there is no hemorrhagic transformation but the longer we go after the initial event the lower the likelihood that this will occur and he really does need to get his INR back in range to prevent further embolic events from the mechanical heart valve and the underlying atrial fib Jose Luis Landry MD Joshua Turpin is a 80 year old left-handed male with PMH mechanical aortic valve, pAfib- on coumadin, GI bleed, DM 2, JAMES on CPAP. He was brought to ED [facility] on 09/11/2020 with a sudden onset of slurred speech and right sided weakness. A stroke alert was called and tPa was given. He had a subtherapeutic level INR 1.4. He was found to have left MCA territory infarct. CT head showed some expected evolution of the infarct but no hemorrhagic transformation. A discussion with cards, He is doing better but still having a lot of issues with his speech. He is trying to say his first and last name written on a paper. Can say Papi but not Chau. He states at home he was taking Coumadin 5 mg and every other day 2 tablets. He has been receiving in the hospital 5 mg for 3 days and was increased to 8 mg daily. denies CP, SOB, headache, new bowel or bladder issues, +dysphasia, right sided weakness Review of Systems Review of Systems: All systems reviewed & are unremarkable except as noted in HPI & below Physical Exam Physical Exam: Physical Exam: Constitutional: appearance over nourished, healthy Ears, Nose, Mouth and Throat: mucous membranes moist, no injection and skin normal, eyes normal Cardiovascular: loud opening snap Respiratory: course breath sounds Musculoskeletal: no peripheral edema Skin: no stigmata of neurocutaneous disease noted and normal and intact Eyes: extraocular muscles intact (EOMI) and pupils equal, round and reactive to light (PERRL) NEUROLOGIC EXAMINATION: Mental status: Alert and interactive Oriented to person Speech dysphasia expressive aphasia, able to say both his first and last name today- which makes him very happy Cranial Nerves smile eye brow raise symmetric Gait/Stance: Posture normal sitting in bedside chair. gait not assessed Motor: pronation of right arm Results & Data ([facility]) Vital Signs (Past 12 Hours) Vital Signs Temp Pulse Pulse Resp BP Pulse Ox 09/17/20 11:36 36.6 C 85 18 123/68 94 09/17/20 09:05 70 09/17/20 07:17 36.6 C 73 18 154/83 H 90 09/17/20 04:42 36.4 C L 70 18 147/77 H 95 Laboratory Results Abnormal lab results 09/17/20 Range/Units 08:52 PT 14.6 H (9.0-12.0) Seconds INR 1.4 H (0.9-1.1) APTT 61.5 H* (21.0-31.0) Seconds Diagnostic Findings none
[2020-09-17] MEDS: WARFARIN SOD 4 MG TAB PO SCH (17:00)
[2020-09-17] MEDS: CLOBETASOL PROPIONATE 0.05% OINT 15 GM TUBE EXT PRN (17:19)
[2020-09-17] MEDS: traZODone HCL 50 MG TAB PO SCH (22:01)
[2020-09-17] MEDS: FOLIC ACID 1 MG TAB PO SCH (22:02)
[2020-09-17] MEDS: CHOLECALCIFEROL 1,000 UNITS 25 MCG TAB PO SCH (22:02)
[2020-09-17] MEDS: ROSUVASTATIN CALCIUM 10 MG TAB PO SCH (22:02)
[2020-09-17] MEDS: VITAMIN B COMPLEX TAB PO SCH (22:02)
[2020-09-17] MEDS: lisinopril 2.5 MG TAB PO SCH (22:03)
[2020-09-17] MEDS: PANTOprazole 40 MG TAB PO SCH (22:03)
[2020-09-17] MEDS: LORazepam 1 MG TAB PO PRN (22:08)
[2020-09-18] MEDS: HEPARIN SODIUM/DEXTROSE 25,000 UNITS/500 ML BAG IV SCH ×2 (01:06→18:03)
[2020-09-18 09:13] LABS: Basophils # (auto) 0.02 K/uL (0-0.2); Basophils % (auto) 0.3 %; Eosinophils # (auto) 0.33 K/uL (0-0.5); Eosinophils % (auto) 5.1 %; Hematocrit (blood only) 36.2 % (42-52); Hemoglobin 11.9 g/dL (14.0-18.0); Immature Granulocytes # (auto) 0.01 K/uL (0.00-0.02); Immature Granulocytes % (auto) 0.2 %; Lymphocytes # (auto) 1.03 K/uL (1.2-3.4); Lymphocytes % (auto) 15.8 %; Mean Corpuscular Hemoglobin 32.2 pg (25-34); Mean Corpuscular Hgb Conc 32.9 g/dL (32-36); Mean Corpuscular Volume 97.8 fL (80-100); Mean Platelet Volume 10.3 fL (7.4-10.4); Monocytes # (auto) 1.01 K/uL (0.11-0.59); Monocytes % (auto) 15.5 %; Neutrophils % (auto) 63.1 %; Platelet Count 170 K/uL (130-400); RDW Coefficient of Variation 13.6 % (11.5-14.5); RDW Standard Deviation 48.9 fL (36.4-46.3)
--- NOTE | 2020-09-18 09:17 | Hospitalist Progress Note ---
Date of Service September 18, 2020 Assessment & Plan (1) Acute CVA (cerebrovascular accident): Presented with acute CVA, Patient was within the window of TPA administration Stroke alert was called, patient evaluated by [place] neuro telemetry/received tPA MRI/MRA of brain-large left temporoparietal CVA /left MCA infraction repeat CT head non contrast post tPA : no hge , expected evolution of left MCA stroke appreciate input from Neurology hx of Mechanical aortic valve , Afib started on PO Coumadin. Increased dose on 09/15, goal INR 2.5-3.5 INR remains subtherapeutic, current INR 1.4 per neurology : recommends repeat CT head- non contrast, if no evidence of hge start on IV heparin gtt low dose , no blous /cont Coumadin [address] head (09/14) - Interval development of several punctate hyperdense foci within the posterior left MCA territory infarct. This could represent trace hemorrhage. Follow up CT is recommended in 24 hours. Neurology still recommend heparin IV without bolus. The patient should have a repeat CT on 09/15 afternoon to rule out worsening hemorrhagic transformation. Repeat CT 09/15/2020 - Redemonstration of the left MCA territory infarct. The punctate hyperdense foci within the area of infarct have essentially resolved. Therefore, no evidence for hemorrhagic transformation. High risk for repeat embolic stroke without adequate anticoagulation -pt will need hospital stay till INR therapeutic - outpatient follow up with neurology 4-6 weeks after discharge form rehab. Hyperlipidemia : LDL 33 ,with in goal cont home dose of statin Confusion/metabolic encephalopathy due to acute CVA resolved mental status at baseline (2) S/P AVR (aortic valve replacement): hx of aortic arch aneurysm, status post mechanical aortic valve replacement in at . Has been on Coumadin, recently INR level has been difficult to adjust. Recent Admission at [facility] July 2020 with supratherapeutic INR of 6, and lower GI bleed. patient was placed on Lovenox bridge for recent EGD Coumadin been resumed post procedure, admitted with acute Left MCA CVA /INR 1.6 High risk for mechanical valve thrombus causing embolic phenomena/stroke-count coumadin /low dose IV heparin bridge Transthoracic echo- mechanical valve not well visualized , normal gradient noted - given high risk for future CVA , needs close monitoring of [facility] at [facility] Coumadin should not be interrupted except for life threatening bleed for risk for thrombotic event Dysphagia /Dysarthria : appreciate input from speech pt was ordered mechanical soft diet noted to having difficulty in swallowing , coughing spells during meals diet changed to Pureed speech need to re-evaluate pt will need continued speech and swallow therapt at rehab HTN: resumed home BP meds History of paroxysmal A. fib: Anticoagulation as outlined above CODE STATUS:DNR/DNI Disposition: will need acute rehab for PT/OT and speech therapy referral made for [facility] to monitor in tele till INR therapeutic Admission and Anticipated Discharge Date Admission Date: September 11, 2020 Subjective Pt seen in follow up of CVA, subtherap. INR. Pt feeling well, +dysarthria, able to speak slowly, usually can say words correctly if they are not complicated words. Moving extremities better. No headache, no chest pain, shortness of breath, abd. pain, n/v. INR remains subtherapeutic. Review of Systems Constitutional: + weakness (rt sided weakness ); no fever and no fatigue Neurologic: + localized weakness (ri sided weakness ) and + abnormal speech (dysarthria , ); no tremor(s), no abnormal movements, no headache(s) and no confusion Physical Exam Physical Exam: Constitutional: WD/WN, vitals as above Eyes: PERRL, conjunctivae normal, anicteric sclerae + anicteric sclerae and reactive pupils ENMT: external ear and nose normal, oropharynx normal Neck: trachea midline, no thyromegaly Respiratory: normal respiratory effort, lungs clear to auscultation Cardiovascular: RRR, + mechan.valve sound, no murmur, no edema Gastrointestinal (Abdomen): normal bowel sounds, soft, nontender Skin: no rashes, warm and dry Neurologic: + focal motor deficit (rt sided weakness ) , able to move RUE but has significant sensory loss in RUE, also able to move RLE while laying in bed, awake Speech / Cognition: + abnormal speech (dysarthria ) and + expressive aphasia Motor/Sensory: no tremor, and no asterixis Psychiatric: A+Ox3, euthymic affect Results & Data Results & Data ([facility]) Vital Signs (Past 12 Hours) Vital Signs Temp Pulse Pulse Resp BP Pulse Ox 09/18/20 04:23 36.5 C 80 18 123/67 96 09/18/20 01:54 72 09/17/20 22:26 36.3 C L 80 18 128/75 94 Laboratory Results 09/18/20 09/18/20 Range/Units 08:55 08:55 WBC 6.50 (4.8-10.8) K/uL RBC 3.70 L (4.7-6.1) M/uL Hgb 11.9 L (14.0-18.0) g/dL Hct 36.2 L (42-52) % MCV 97.8 (80-100) fL MCH 32.2 (25-34) pg MCHC 32.9 (32-36) g/dL RDW Std Deviation 48.9 H (36.4-46.3) fL RDW Coeff of Chadd 13.6 (11.5-14.5) % Plt Count 170 (130-400) K/uL MPV 10.3 (7.4-10.4) fL Immature Gran % (Auto) 0.2 % Neut % (Auto) 63.1 % Lymph % (Auto) 15.8 % [place] % (Auto) 15.5 % Eos % (Auto) 5.1 % Baso % (Auto) 0.3 % Neut # (Auto) 4.10 (1.4-6.5) K/uL Lymph # (Auto) 1.03 L (1.2-3.4) K/uL [place] # (Auto) 1.01 H (0.11-0.59) K/uL Eos # (Auto) 0.33 (0-0.5) K/uL Baso # (Auto) 0.02 (0-0.2) K/uL Immature Gran # (Auto) 0.01 (0.00-0.02) K/uL PT 16.6 H (9.0-12.0) Seconds INR 1.6 H (0.9-1.1) APTT 77.7 H* (21.0-31.0) Seconds PTT Ratio 2.8 Medications Administered Current Inpatient Medications Acetaminophen (Acetaminophen 325 Mg Tab) 650 mg PO Q4H PRN PRN Reason: Headache Stop: 10/12/20 17:07 Last Admin: 09/12/20 17:40 Dose: 650 mg Documented by: Allopurinol (Allopurinol 300 Mg Tab) 300 mg PO Q2D [facility] Stop: 10/13/20 08:59 Last Admin: 09/17/20 08:54 Dose: 300 mg Documented by: Ascorbic Acid (Ascorbic Acid 500 Mg Tab) 500 mg PO Q2D@0900 [facility] Stop: 10/13/20 08:59 Last Admin: 09/17/20 08:53 Dose: 500 mg Documented by: Aspirin (Aspirin 81 Mg Ectab) 81 mg PO QAM [facility] Stop: 10/12/20 11:59 Last Admin: 09/18/20 09:31 Dose: 81 mg Documented by: Clobetasol Propionate (Clobetasol Propionate 0.05% Oint 15 Gm Tube) 1 appln EXT BID PRN PRN Reason: psoriasis Stop: 10/17/20 15:48 Last Admin: 09/17/20 17:19 Dose: 1 appln Documented by: Ferrous Sulfate (Ferrous Sulfate 325 Mg Tab) 325 mg PO BID [facility] Stop: 10/12/20 20:59 Last Admin: 09/18/20 09:31 Dose: 325 mg Documented by: Fish Oil ([place]-3 (Purified Fish Oil) 1 Gm Cap) 1 gm PO Q2D [facility] Stop: 10/13/20 08:59 Last Admin: 09/17/20 08:53 Dose: 1 gm Documented by: Folic Acid (Folic Acid 1 Mg Tab) 1 mg PO PM [facility] Stop: 10/12/20 20:59 Last Admin: 09/17/20 22:02 Dose: 1 mg Documented by: Heparin Sodium/Dextrose (Heparin Sodium/Dextrose) 25,000 units in 500 mls @ 30 mls/hr IV .[id number] [facility]; Protocol Stop: 10/14/20 22:59 Last Titration: 09/18/20 07:02 Dose: 1,500 units/hr, 30 mls/hr Documented by: Lactobacillus Acidoph/Casei/Rhamnos (Advanced Probiotic 1250 Mg Capsule) 2 cap PO BID [facility] Stop: 10/12/20 20:59 Last Admin: 09/18/20 09:31 Dose: 2 cap Documented by: Lisinopril (Lisinopril 2.5 Mg Tab) 2.5 mg PO QPM [facility] Stop: 10/13/20 20:59 Last Admin: 09/17/20 22:03 Dose: 2.5 mg Documented by: Lorazepam (Lorazepam 1 Mg Tab) 1 mg PO TID PRN PRN Reason: Anxiety Stop: 10/12/20 17:12 Last Admin: 09/17/20 22:08 Dose: 1 mg Documented by: Metoprolol Succinate (Metoprolol Succ 50mg Ext Rel Tab) 50 mg PO QAM [facility] Stop: 10/13/20 17:59 Last Admin: 09/18/20 09:30 Dose: 50 mg Documented by: Miconazole Nitrate (Miconazole Nitrate Powder 43 Gm) 1 appln EXT PRN PRN PRN Reason: Affected Skin Folds Stop: 10/14/20 03:32 Miscellaneous (Fluocinolone 0.01 - Order Awaiting Action) 1 ea N/A QS [facility] Stop: 10/17/20 15:59 Last Admin: 09/18/20 09:32 Dose: Not Given Documented by: Multivitamins/Minerals (Cerovite Adv Formula Tab) 1 tab PO Q2D [facility] Stop: 10/13/20 08:59 Last Admin: 09/17/20 08:52 Dose: 1 tab Documented by: Pantoprazole Sodium (Pantoprazole 40 Mg Tab) 40 mg PO PM [facility] Stop: 10/12/20 20:59 Last Admin: 09/17/20 22:03 Dose: 40 mg Documented by: Paroxetine HCl (Paroxetine Hcl 20 Mg Tab) [facility] [place] Stop: 10/13/20 08:59 Last Admin: 09/18/20 09:31 Dose: 20 mg Documented by: Rosuvastatin Calcium (Rosuvastatin Calcium 10 Mg Tab) 10 mg PO QPM [facility] Stop: 10/14/20 20:59 Last Admin: 09/17/20 22:02 Dose: 10 mg Documented by: Tamsulosin HCl (Tamsulosin Hcl 0.4 Mg Cap) 0.4 mg [facility] [place] Stop: 10/13/20 08:59 Last Admin: 09/18/20 09:31 Dose: 0.4 mg Documented by: Trazodone HCl (Trazodone Hcl 50 Mg Tab) 50 mg PO HS [facility] Stop: 10/14/20 20:59 Last Admin: 09/17/20 22:01 Dose: 50 mg Documented by: Vitamin A (Vitamin A 25,000 Unit Cap) 25,000 units [facility] [place] Stop: 10/14/20 08:59 Last Admin: 09/18/20 09:31 Dose: 25,000 units Documented by: Vitamin B Complex (Vitamin B Complex Tab) 1 tab PO PM [facility] Stop: 10/12/20 20:59 Last Admin: 09/17/20 22:02 Dose: 1 tab Documented by: Vitamin D (Cholecalciferol 1,000 Units 25 Mcg Tab) 1,000 units PO PM [facility] Stop: 10/12/20 20:59 Last Admin: 09/17/20 22:02 Dose: 1,000 units Documented by: Warfarin Sodium (Warfarin Sod 4 Mg Tab) 8 mg PO DAILY@1600 [facility] Stop: 10/16/20 15:59 Last Admin: 09/17/20 17:00 Dose: 8 mg Documented by:
[2020-09-18] MEDS: METOPROLOL SUCC 50MG EXT REL TAB PO SCH (09:30)
[2020-09-18] MEDS: VITAMIN A 25,000 UNIT CAP PO SCH (09:31)
[2020-09-18] MEDS: PARoxetine HCL 20 MG TAB PO SCH (09:31)
[2020-09-18] MEDS: FERROUS SULFATE 325 MG TAB PO SCH ×2 (09:31→20:49)
[2020-09-18] MEDS: TAMSULOSIN HCL 0.4 MG CAP PO SCH (09:31)
[2020-09-18] MEDS: ASPIRIN 81 MG ECTAB PO SCH (09:31)
[2020-09-18] MEDS: ADVANCED PROBIOTIC 1250 MG CAPSULE PO SCH ×2 (09:31→20:49)
[2020-09-18 09:34] LABS: INR 1.6 (0.9-1.1); Partial Thromboplastin Ratio 2.8; Prothrombin Time 16.6 Seconds (9.0-12.0)
[2020-09-18 10:08] LABS: Partial Thromboplastin Time 77.7 Seconds (21.0-31.0)
[2020-09-18] MEDS: WARFARIN SOD 4 MG TAB PO SCH (16:00)
[2020-09-18 16:48] LABS: Partial Thromboplastin Ratio 2.3
[2020-09-18 16:50] LABS: Partial Thromboplastin Time 64.6 Seconds (21.0-31.0)
[2020-09-18] MEDS: ROSUVASTATIN CALCIUM 10 MG TAB PO SCH (20:48)
[2020-09-18] MEDS: VITAMIN B COMPLEX TAB PO SCH (20:48)
[2020-09-18] MEDS: PANTOprazole 40 MG TAB PO SCH (20:48)
[2020-09-18] MEDS: FOLIC ACID 1 MG TAB PO SCH (20:48)
[2020-09-18] MEDS: traZODone HCL 50 MG TAB PO SCH (20:48)
[2020-09-18] MEDS: lisinopril 2.5 MG TAB PO SCH (20:49)
[2020-09-18] MEDS: CHOLECALCIFEROL 1,000 UNITS 25 MCG TAB PO SCH (20:50)
[2020-09-19] MEDS: LORazepam 1 MG TAB PO PRN ×2 (00:39→23:46)
[2020-09-19 07:33] LABS: Hematocrit (blood only) 35.1 % (42-52); Hemoglobin 11.9 g/dL (14.0-18.0)
[2020-09-19 08:04] LABS: INR 1.8 (0.9-1.1); Prothrombin Time 18.2 Seconds (9.0-12.0)
[2020-09-19 08:38] LABS: Partial Thromboplastin Time 83.7 Seconds (21.0-31.0)
--- NOTE | 2020-09-19 08:50 | Hospitalist Progress Note ---
Date of Service September 19, 2020 Assessment & Plan (1) Acute CVA (cerebrovascular accident): Presented with acute CVA, Patient was within the window of TPA administration Stroke alert was called, patient evaluated by [place] neuro telemetry/received tPA MRI/MRA of brain-large left temporoparietal CVA /left MCA infraction repeat CT head non contrast post tPA : no hge , expected evolution of left MCA stroke appreciate input from Neurology hx of Mechanical aortic valve , Afib started on PO Coumadin. Increased dose on 09/15, goal INR 2.5-3.5 INR remains subtherapeutic, current INR 1.4 per neurology : recommends repeat CT head- non contrast, if no evidence of hge start on IV heparin gtt low dose , no blous /cont Coumadin [address] head (09/14) - Interval development of several punctate hyperdense foci within the posterior left MCA territory infarct. This could represent trace hemorrhage. Follow up CT is recommended in 24 hours. Neurology still recommend heparin IV without bolus. The patient should have a repeat CT on 09/15 afternoon to rule out worsening hemorrhagic transformation. Repeat CT 09/15/2020 - Re-demonstration of the left MCA territory infarct. The punctate hyperdense foci within the area of infarct have essentially resolved. Therefore, no evidence for hemorrhagic transformation. High risk for repeat embolic stroke without adequate anticoagulation -pt will need hospital stay till INR therapeutic - Outpatient follow up with neurology 4-6 weeks after discharge form rehab. Hyperlipidemia : LDL 33 ,with in goal cont home dose of statin Confusion/metabolic encephalopathy due to acute CVA resolved mental status at baseline (2) S/P AVR (aortic valve replacement): hx of aortic arch aneurysm, status post mechanical aortic valve replacement in at [facility]. Has been on Coumadin, recently INR level has been difficult to adjust. Recent Admission at [facility] July 2020 with supratherapeutic INR of 6, and lower GI bleed. patient was placed on Lovenox bridge for recent EGD Coumadin been resumed post procedure, admitted with acute Left MCA CVA /INR 1.8 High risk for mechanical valve thrombus causing embolic phenomena/stroke-count coumadin /low dose IV heparin bridge Transthoracic echo- mechanical valve not well visualized , normal gradient noted - given high risk for future CVA , needs close [facility] Coumadin should not be interrupted except for life threatening bleed for risk for thrombotic event Dysphagia /Dysarthria : appreciate input from speech pt was ordered mechanical soft diet noted to having difficulty in swallowing , coughing spells during meals diet changed to Pureed speech need to re-evaluate pt will need continued speech and swallow therapt at rehab HTN: resumed home BP meds History of paroxysmal A. fib: Anticoagulation as outlined above CODE STATUS:DNR/DNI Disposition: will need acute rehab for PT/OT and speech therapy referral made for [facility] to monitor in tele till INR therapeutic Admission and Anticipated Discharge Date Admission Date: September 11, 2020 Subjective Pt seen in follow up of CVA, subtherap. INR. Pt feeling well, +dysarthria, able to speak slowly, usually can say words correctly if they are not complicated words. Moving extremities better. No headache, no chest pain, shortness of breath, abd. pain, n/v. INR remains subtherapeutic. 1.8 Review of Systems Constitutional: + weakness (rt sided weakness ); no fever and no fatigue Neurologic: + localized weakness (ri sided weakness ) and + abnormal speech (dysarthria , ); no tremor(s), no abnormal movements, no headache(s) and no confusion Physical Exam Physical Exam: Constitutional: WD/WN, vitals as above Eyes: PERRL, EOMI, conjunctivae normal, anicteric sclerae + anicteric sclerae and reactive pupils ENMT: external ear and nose normal, oropharynx normal Neck: trachea midline, no thyromegaly Respiratory: normal respiratory effort, lungs clear to auscultation Cardiovascular: RRR, + mechan.valve sound, no murmur, no edema Gastrointestinal (Abdomen): normal bowel sounds, soft, nontender Skin: no rashes, warm and dry Neurologic: + focal motor deficit (rt sided weakness ) , able to move RUE but has significant sensory loss in RUE, also able to move RLE while laying in bed, awake Speech / Cognition: + abnormal speech (dysarthria ) and + expressive aphasia Motor/Sensory: no tremor, and no asterixis Psychiatric: A+Ox3, euthymic affect Results & Data Results & Data ([facility]) Vital Signs (Past 12 Hours) Vital Signs Temp Pulse Pulse Resp BP Pulse Ox 09/19/20 07:28 76 09/19/20 03:06 36.5 C 72 18 114/66 93 09/18/20 23:36 36.6 C 87 19 155/79 H 92 Laboratory Results 09/19/20 09/19/20 09/18/20 Range/Units 07:09 07:09 20:47 WBC (4.8-10.8) K/uL RBC (4.7-6.1) M/uL Hgb 11.9 L (14.0-18.0) g/dL Hct 35.1 L (42-52) % MCV (80-100) fL MCH (25-34) pg MCHC (32-36) g/dL RDW Std Deviation (36.4-46.3) fL RDW Coeff of Chadd (11.5-14.5) % Plt Count (130-400) K/uL MPV (7.4-10.4) fL Immature Gran % (Auto) % Neut % (Auto) % Lymph % (Auto) % Baldwin % (Auto) % Eos % (Auto) % Baso % (Auto) % Neut # (Auto) (1.4-6.5) K/uL Lymph # (Auto) (1.2-3.4) K/uL Baldwin # (Auto) (0.11-0.59) K/uL Eos # (Auto) (0-0.5) K/uL Baso # (Auto) (0-0.2) K/uL Immature Gran # (Auto) (0.00-0.02) K/uL PT 18.2 H (9.0-12.0) Seconds INR 1.8 H (0.9-1.1) APTT 83.7 H* (21.0-31.0) Seconds PTT Ratio 3.0 POC Glucose 206 H (70-99) mg/dl 09/18/20 09/18/20 09/18/20 Range/Units 16:15 08:55 08:55 WBC 6.50 (4.8-10.8) K/uL RBC 3.70 L (4.7-6.1) M/uL Hgb 11.9 L (14.0-18.0) g/dL Hct 36.2 L (42-52) % MCV 97.8 (80-100) fL MCH 32.2 (25-34) pg MCHC 32.9 (32-36) g/dL RDW Std Deviation 48.9 H (36.4-46.3) fL RDW Coeff of Chadd 13.6 (11.5-14.5) % Plt Count 170 (130-400) K/uL MPV 10.3 (7.4-10.4) fL Immature Gran % (Auto) 0.2 % Neut % (Auto) 63.1 % Lymph % (Auto) 15.8 % Baldwin % (Auto) 15.5 % Eos % (Auto) 5.1 % Baso % (Auto) 0.3 % Neut # (Auto) 4.10 (1.4-6.5) K/uL Lymph # (Auto) 1.03 L (1.2-3.4) K/uL Baldwin # (Auto) 1.01 H (0.11-0.59) K/uL Eos # (Auto) 0.33 (0-0.5) K/uL Baso # (Auto) 0.02 (0-0.2) K/uL Immature Gran # (Auto) 0.01 (0.00-0.02) K/uL PT 16.6 H (9.0-12.0) Seconds INR 1.6 H (0.9-1.1) APTT 64.6 H* 77.7 H* (21.0-31.0) Seconds PTT Ratio 2.3 2.8 POC Glucose (70-99) mg/dl Medications Administered Current Inpatient Medications Acetaminophen (Acetaminophen 325 Mg Tab) 650 mg PO Q4H PRN PRN Reason: Headache Stop: 10/12/20 17:07 Last Admin: 09/12/20 17:40 Dose: 650 mg Documented by: Allopurinol (Allopurinol 300 Mg Tab) 300 mg PO Q2D [facility] Stop: 10/13/20 08:59 Last Admin: 09/17/20 08:54 Dose: 300 mg Documented by: Ascorbic Acid (Ascorbic Acid 500 Mg Tab) 500 mg PO Q2D@0900 [facility] Stop: 10/13/20 08:59 Last Admin: 09/17/20 08:53 Dose: 500 mg Documented by: Aspirin (Aspirin 81 Mg Ectab) 81 mg PO QAM [facility] Stop: 10/12/20 11:59 Last Admin: 09/18/20 09:31 Dose: 81 mg Documented by: Clobetasol Propionate (Clobetasol Propionate 0.05% Oint 15 Gm Tube) 1 appln EXT BID PRN PRN Reason: psoriasis Stop: 10/17/20 15:48 Last Admin: 09/17/20 17:19 Dose: 1 appln Documented by: Ferrous Sulfate (Ferrous Sulfate 325 Mg Tab) 325 mg PO BID [facility] Stop: 10/12/20 20:59 Last Admin: 09/18/20 20:49 Dose: 325 mg Documented by: Fish Oil ([place]-3 (Purified Fish Oil) 1 Gm Cap) 1 gm PO Q2D [facility] Stop: 10/13/20 08:59 Last Admin: 09/17/20 08:53 Dose: 1 gm Documented by: Folic Acid (Folic Acid 1 Mg Tab) 1 mg PO PM [facility] Stop: 10/12/20 20:59 Last Admin: 09/18/20 20:48 Dose: 1 mg Documented by: Heparin Sodium/Dextrose (Heparin Sodium/Dextrose) 25,000 units in 500 mls @ 28 mls/hr IV .[id number] [facility]; Protocol Stop: 10/14/20 22:59 Last Titration: 09/19/20 08:47 Dose: 1,300 units/hr, 26 mls/hr Documented by: Lactobacillus Acidoph/Casei/Rhamnos (Advanced Probiotic 1250 Mg Capsule) 2 cap PO BID [facility] Stop: 10/12/20 20:59 Last Admin: 09/18/20 20:49 Dose: 2 cap Documented by: Lisinopril (Lisinopril 2.5 Mg Tab) 2.5 mg PO QPM [facility] Stop: 10/13/20 20:59 Last Admin: 09/18/20 20:49 Dose: 2.5 mg Documented by: Lorazepam (Lorazepam 1 Mg Tab) 1 mg PO TID PRN PRN Reason: Anxiety Stop: 10/12/20 17:12 Last Admin: 09/19/20 00:39 Dose: 1 mg Documented by: Metoprolol Succinate (Metoprolol Succ 50mg Ext Rel Tab) 50 mg PO QAM [facility] Stop: 10/13/20 17:59 Last Admin: 09/18/20 09:30 Dose: 50 mg Documented by: Miconazole Nitrate (Miconazole Nitrate Powder 43 Gm) 1 appln EXT PRN PRN PRN Reason: Affected Skin Folds Stop: 10/14/20 03:32 Miscellaneous (Fluocinolone 0.01 - Order Awaiting Action) 1 ea N/A QS [facility] Stop: 10/17/20 15:59 Last Admin: 09/19/20 00:31 Dose: Not Given Documented by: Multivitamins/Minerals (Cerovite Adv Formula Tab) 1 tab PO Q2D [facility] Stop: 10/13/20 08:59 Last Admin: 09/17/20 08:52 Dose: 1 tab Documented by: Pantoprazole Sodium (Pantoprazole 40 Mg Tab) 40 mg PO PM [facility] Stop: 10/12/20 20:59 Last Admin: 09/18/20 20:48 Dose: 40 mg Documented by: Paroxetine HCl (Paroxetine Hcl 20 Mg Tab) 20 mg PO QAM [facility] Stop: 10/13/20 08:59 Last Admin: 09/18/20 09:31 Dose: 20 mg Documented by: Rosuvastatin Calcium (Rosuvastatin Calcium 10 Mg Tab) 10 mg PO QPM [facility] Stop: 10/14/20 20:59 Last Admin: 09/18/20 20:48 Dose: 10 mg Documented by: Tamsulosin HCl (Tamsulosin Hcl 0.4 Mg Cap) 0.4 mg PO QAM [facility] Stop: 10/13/20 08:59 Last Admin: 09/18/20 09:31 Dose: 0.4 mg Documented by: Trazodone HCl (Trazodone Hcl 50 Mg Tab) 50 mg PO HS [facility] Stop: 10/14/20 20:59 Last Admin: 09/18/20 20:48 Dose: 50 mg Documented by: Vitamin A (Vitamin A 25,000 Unit Cap) 25,000 units PO QAM [facility] Stop: 10/14/20 08:59 Last Admin: 09/18/20 09:31 Dose: 25,000 units Documented by: Vitamin B Complex (Vitamin B Complex Tab) 1 tab PO PM [facility] Stop: 10/12/20 20:59 Last Admin: 09/18/20 20:48 Dose: 1 tab Documented by: Vitamin D (Cholecalciferol 1,000 Units 25 Mcg Tab) 1,000 units PO PM [facility] Stop: 10/12/20 20:59 Last Admin: 09/18/20 20:50 Dose: 1,000 units Documented by: Warfarin Sodium (Warfarin Sod 4 Mg Tab) 8 mg PO DAILY@1600 [facility] Stop: 10/16/20 15:59 Last Admin: 09/18/20 16:00 Dose: 8 mg Documented by:
[2020-09-19] MEDS: CEROVITE ADV FORMULA TAB PO SCH (08:52)
[2020-09-19] MEDS: METOPROLOL SUCC 50MG EXT REL TAB PO SCH (08:53)
[2020-09-19] MEDS: PARoxetine HCL 20 MG TAB PO SCH (08:53)
[2020-09-19] MEDS: allopurinoL 300 MG TAB PO SCH (08:53)
[2020-09-19] MEDS: ASCORBIC ACID 500 MG TAB PO SCH (08:53)
[2020-09-19] MEDS: ADVANCED PROBIOTIC 1250 MG CAPSULE PO SCH ×2 (08:53→21:17)
[2020-09-19] MEDS: TAMSULOSIN HCL 0.4 MG CAP PO SCH (08:53)
[2020-09-19] MEDS: VITAMIN A 25,000 UNIT CAP PO SCH (08:53)
[2020-09-19] MEDS: FERROUS SULFATE 325 MG TAB PO SCH ×2 (08:54→21:16)
[2020-09-19] MEDS: OMEGA-3 (PURIFIED FISH OIL) 1 GM CAP PO SCH (08:54)
[2020-09-19] MEDS: ASPIRIN 81 MG ECTAB PO SCH (08:54)
[2020-09-19] MEDS: HEPARIN SODIUM/DEXTROSE 25,000 UNITS/500 ML BAG IV SCH (12:10)
[2020-09-19 15:55] LABS: Partial Thromboplastin Ratio 2.2
[2020-09-19 16:01] LABS: Partial Thromboplastin Time 62.4 Seconds (21.0-31.0)
[2020-09-19] MEDS: WARFARIN SOD 4 MG TAB PO SCH (16:49)
[2020-09-19] MEDS: PANTOprazole 40 MG TAB PO SCH (21:16)
[2020-09-19] MEDS: ROSUVASTATIN CALCIUM 10 MG TAB PO SCH (21:17)
[2020-09-19] MEDS: FOLIC ACID 1 MG TAB PO SCH (21:17)
[2020-09-19] MEDS: VITAMIN B COMPLEX TAB PO SCH (21:18)
[2020-09-19] MEDS: lisinopril 2.5 MG TAB PO SCH (21:18)
[2020-09-19] MEDS: traZODone HCL 50 MG TAB PO SCH (21:18)
[2020-09-19] MEDS: CHOLECALCIFEROL 1,000 UNITS 25 MCG TAB PO SCH (21:19)
[2020-09-20] MEDS: HEPARIN SODIUM/DEXTROSE 25,000 UNITS/500 ML BAG IV SCH ×2 (06:01→08:18)
[2020-09-20 07:14] LABS: Hematocrit (blood only) 37.3 % (42-52); Hemoglobin 12.3 g/dL (14.0-18.0)
[2020-09-20 07:57] LABS: INR 2.1 (0.9-1.1); Partial Thromboplastin Ratio 2.8; Prothrombin Time 20.9 Seconds (9.0-12.0)
[2020-09-20 08:01] LABS: Partial Thromboplastin Time 78.3 Seconds (21.0-31.0)
[2020-09-20] MEDS: METOPROLOL SUCC 50MG EXT REL TAB PO SCH (08:29)
[2020-09-20] MEDS: ASPIRIN 81 MG ECTAB PO SCH (08:29)
[2020-09-20] MEDS: ADVANCED PROBIOTIC 1250 MG CAPSULE PO SCH ×2 (08:29→21:11)
[2020-09-20] MEDS: PARoxetine HCL 20 MG TAB PO SCH (08:29)
[2020-09-20] MEDS: VITAMIN A 25,000 UNIT CAP PO SCH (08:30)
[2020-09-20] MEDS: FERROUS SULFATE 325 MG TAB PO SCH ×2 (08:30→21:13)
[2020-09-20] MEDS: TAMSULOSIN HCL 0.4 MG CAP PO SCH (08:30)
[2020-09-20] MEDS ORDERED: GLUCOSE 40% GEL 15 GM TUBE PO PRN (13:44)
[2020-09-20] MEDS ORDERED: GLUCAGON FOR INJ 1 MG VIAL SQ PRN (13:44)
[2020-09-20] MEDS ORDERED: CARBOHYDRATES FOR HYPOGLYCEMIA PO PRN (13:44)
[2020-09-20] MEDS ORDERED: DEXTROSE 50% 50 ML SYRINGE IV PRN (13:44)
[2020-09-20] MEDS ORDERED: GLUCOSE 10 TABS/TUBE PO PRN (13:44)
--- NOTE | 2020-09-20 14:10 | Hospitalist Progress Note ---
Date of Service September 20, 2020 Assessment & Plan (1) Acute CVA (cerebrovascular accident): Presented with acute CVA, Patient was within the window of TPA administration Stroke alert was called, patient evaluated by [place] neuro telemetry/received tPA MRI/MRA of brain-large left temporoparietal CVA /left MCA infraction repeat CT head non contrast post tPA : no hge , expected evolution of left MCA stroke appreciate input from Neurology hx of Mechanical aortic valve , Afib started on PO Coumadin. Increased dose on 09/15, goal INR 2.5-3.5 INR remains subtherapeutic, current INR 2.1, currently on 8 mg warfarin daily At home takes warfarin 5 mg x4/week and 10 mg x3/week per neurology : recommends repeat CT head- non contrast, if no evidence of hge start on IV heparin gtt low dose , no blous /cont Coumadin [address] head (09/14) - Interval development of several punctate hyperdense foci within the posterior left MCA territory infarct. This could represent trace hemorrhage. Follow up CT is recommended in 24 hours. Neurology still recommend heparin IV without bolus. The patient should have a repeat CT on 09/15 afternoon to rule out worsening hemorrhagic transformation. Repeat CT 09/15/2020 - Re-demonstration of the left MCA territory infarct. The punctate hyperdense foci within the area of infarct have essentially resolved. Therefore, no evidence for hemorrhagic transformation. High risk for repeat embolic stroke without adequate anticoagulation -pt will need hospital stay till INR therapeutic - Outpatient follow up with neurology 4-6 weeks after discharge form rehab. Hyperlipidemia : LDL 33 ,with in goal cont home dose of statin Confusion/metabolic encephalopathy due to acute CVA resolved mental status at baseline (2) S/P AVR (aortic valve replacement): hx of aortic arch aneurysm, status post mechanical aortic valve replacement in at . Has been on Coumadin, recently INR level has been difficult to adjust. Recent Admission at [facility] July 2020 with supratherapeutic INR of 6, and lower GI bleed. patient was placed on Lovenox bridge for recent EGD Coumadin been resumed post procedure, admitted with acute Left MCA CVA /INR 1.8 High risk for mechanical valve thrombus causing embolic phenomena/stroke-count coumadin /low dose IV heparin bridge (will now stop IV heparin (09/20) as INR above 2 and risk of bleeding increased), cont. warfarin and monitor INR until INR 2.5 Transthoracic echo- mechanical valve not well visualized , normal gradient noted - given high risk for future CVA , needs close monitoring of INR at [facility] Coumadin should not be interrupted except for life threatening bleed for risk for thrombotic event Dysphagia /Dysarthria : appreciate input from speech pt was ordered mechanical soft diet noted to having difficulty in swallowing , coughing spells during meals diet changed to Pureed speech need to re-evaluate pt will need continued speech and swallow therapt at rehab HTN: resumed home BP meds History of paroxysmal A. fib: Anticoagulation as outlined above CODE STATUS:DNR/DNI Disposition: will need acute rehab for PT/OT and speech therapy referral made for [facility] to monitor in tele till INR therapeutic Admission and Anticipated Discharge Date Admission Date: September 11, 2020 Subjective Pt seen in follow up of CVA, subtherap. INR. Pt feeling well, +dysarthria, able to speak slowly, usually can say words correctly if they are not complicated words. Moving extremities better. No headache, no chest pain, shortness of breath, abd. pain, n/v. INR remains subtherapeutic. 2.1 Review of Systems Review of Systems: All systems reviewed & are unremarkable except as noted in HPI & below Constitutional: + weakness (rt sided weakness ); no fever and no fatigue Respiratory: no cough and no dyspnea Cardiovascular: no chest pain and no palpitations Gastrointestinal: no abdominal pain, no nausea and no vomiting Neurologic: + localized weakness (ri sided weakness ) and + abnormal speech (dysarthria , ); no tremor(s), no abnormal movements, no headache(s) and no confusion Physical Exam Physical Exam: Constitutional: WD/WN, vitals as above Eyes: PERRL, EOMI, conjunctivae normal, anicteric sclerae + anicteric sclerae and reactive pupils ENMT: external ear and nose normal, oropharynx normal Neck: trachea midline, no thyromegaly Respiratory: normal respiratory effort, lungs clear to auscultation Cardiovascular: RRR, + mechan.valve sound, no murmur, no edema Gastrointestinal (Abdomen): normal bowel sounds, soft, nontender Skin: no rashes, warm and dry Neurologic: + focal motor deficit (rt sided weakness ) , able to move RUE but has significant sensory loss in RUE, also able to move RLE, awake Speech / Cognition: + abnormal speech (dysarthria ) and + expressive aphasia Motor/Sensory: no tremor, and no asterixis Psychiatric: A+Ox3, euthymic affect Results & Data Results & Data ([facility]) Vital Signs (Past 12 Hours) Vital Signs Temp Pulse Pulse Resp BP BP Pulse Ox 09/20/20 11:57 36.6 C 75 16 129/73 92 09/20/20 08:13 82 09/20/20 07:46 36.5 C 81 18 111/74 92 09/20/20 04:30 36.6 C 79 18 135/64 93 Laboratory Results 09/20/20 09/20/20 09/20/20 Range/Units 13:55 11:35 11:33 Hgb (14.0-18.0) g/dL Hct (42-52) % PT (9.0-12.0) Seconds INR (0.9-1.1) APTT Pending (21.0-31.0) Seconds PTT Ratio Pending POC Glucose 292 H 322 H* (70-99) mg/dl 09/20/20 09/20/20 09/20/20 Range/Units 07:34 06:34 06:34 Hgb 12.3 L (14.0-18.0) g/dL Hct 37.3 L (42-52) % PT 20.9 H (9.0-12.0) Seconds INR 2.1 H (0.9-1.1) APTT 78.3 H* (21.0-31.0) Seconds PTT Ratio 2.8 POC Glucose 236 H (70-99) mg/dl 09/19/20 09/19/20 Range/Units 19:55 15:05 Hgb (14.0-18.0) g/dL Hct (42-52) % PT (9.0-12.0) Seconds INR (0.9-1.1) APTT 62.4 H* (21.0-31.0) Seconds PTT Ratio 2.2 POC Glucose 270 H (70-99) mg/dl
[2020-09-20 14:17] LABS: Partial Thromboplastin Ratio 1.4
[2020-09-20] MEDS: WARFARIN SOD 4 MG TAB PO SCH (15:58)
[2020-09-20] MEDS: INSULIN GLARGINE SOLOSTAR 100 UNITS/ML 3 ML PEN SC SCH (17:03)
[2020-09-20] MEDS: INSULIN ASPART 100 UNITS/ML 3 ML PEN SC SCH ×2 (17:06→21:15)
[2020-09-20] MEDS: lisinopril 2.5 MG TAB PO SCH (21:12)
[2020-09-20] MEDS: ROSUVASTATIN CALCIUM 10 MG TAB PO SCH (21:12)
[2020-09-20] MEDS: VITAMIN B COMPLEX TAB PO SCH (21:12)
[2020-09-20] MEDS: traZODone HCL 50 MG TAB PO SCH (21:12)
[2020-09-20] MEDS: PANTOprazole 40 MG TAB PO SCH (21:13)
[2020-09-20] MEDS: CHOLECALCIFEROL 1,000 UNITS 25 MCG TAB PO SCH (21:14)
[2020-09-20] MEDS: FOLIC ACID 1 MG TAB PO SCH (21:15)
[2020-09-21 06:27] LABS: Hematocrit (blood only) 34.6 % (42-52); Hemoglobin 11.6 g/dL (14.0-18.0)
[2020-09-21 06:31] LABS: INR 2.4 (0.9-1.1)
[2020-09-21] MEDS: FERROUS SULFATE 325 MG TAB PO SCH ×2 (09:07→20:34)
[2020-09-21] MEDS: VITAMIN A 25,000 UNIT CAP PO SCH (09:07)
[2020-09-21] MEDS: ASPIRIN 81 MG ECTAB PO SCH (09:07)
[2020-09-21] MEDS: PARoxetine HCL 20 MG TAB PO SCH (09:07)
[2020-09-21] MEDS: ASCORBIC ACID 500 MG TAB PO SCH (09:07)
[2020-09-21] MEDS: allopurinoL 300 MG TAB PO SCH (09:07)
[2020-09-21] MEDS: TAMSULOSIN HCL 0.4 MG CAP PO SCH (09:07)
[2020-09-21] MEDS: METOPROLOL SUCC 50MG EXT REL TAB PO SCH (09:09)
[2020-09-21] MEDS: CEROVITE ADV FORMULA TAB PO SCH (09:09)
[2020-09-21] MEDS: ADVANCED PROBIOTIC 1250 MG CAPSULE PO SCH ×2 (09:09→20:33)
[2020-09-21] MEDS: INSULIN GLARGINE SOLOSTAR 100 UNITS/ML 3 ML PEN SC SCH (09:09)
[2020-09-21] MEDS: OMEGA-3 (PURIFIED FISH OIL) 1 GM CAP PO SCH (09:09)
[2020-09-21] MEDS: INSULIN ASPART 100 UNITS/ML 3 ML PEN SC SCH ×4 (09:12→20:31)
[2020-09-21] MEDS: WARFARIN SOD 4 MG TAB PO SCH (16:00)
--- NOTE | 2020-09-21 17:09 | Hospitalist Progress Note ---
Date of Service September 21, 2020 Assessment & Plan (1) Acute CVA (cerebrovascular accident): Presented with acute CVA, Patient was within the window of TPA administration Stroke alert was called, patient evaluated by [place] neuro telemetry/received tPA MRI/MRA of brain-large left temporoparietal CVA /left MCA infraction repeat CT head non contrast post tPA : no hge , expected evolution of left MCA stroke appreciate input from Neurology hx of Mechanical aortic valve , Afib started on PO Coumadin. Increased dose on 09/15, goal INR 2.5-3.5 INR remains subtherapeutic, current INR 2.4, currently on 8 mg warfarin daily At home takes warfarin 5 mg x4/week and 10 mg x3/week per neurology : recommends repeat CT head- non contrast, if no evidence of hge start on IV heparin gtt low dose , no blous /cont Coumadin [address] head (09/14) - Interval development of several punctate hyperdense foci within the posterior left MCA territory infarct. This could represent trace hemorrhage. Follow up CT is recommended in 24 hours. Neurology still recommend heparin IV without bolus. The patient should have a repeat CT on 09/15 afternoon to rule out worsening hemorrhagic transformation. Repeat CT 09/15/2020 - Re-demonstration of the left MCA territory infarct. The punctate hyperdense foci within the area of infarct have essentially resolved. Therefore, no evidence for hemorrhagic transformation. High risk for repeat embolic stroke without adequate anticoagulation -pt will need hospital stay till INR therapeutic - Outpatient follow up with neurology 4-6 weeks after discharge form rehab. Hyperlipidemia : LDL 33 ,with in goal cont home dose of statin Confusion/metabolic encephalopathy due to acute CVA resolved mental status at baseline (2) S/P AVR (aortic valve replacement): hx of aortic arch aneurysm, status post mechanical aortic valve replacement in at [facility]. Has been on Coumadin, recently INR level has been difficult to adjust. Recent Admission at [facility] July 2020 with supratherapeutic INR of 6, and lower GI bleed. patient was placed on Lovenox bridge for recent EGD Coumadin been resumed post procedure, admitted with acute Left MCA CVA /INR 2.4 High risk for mechanical valve thrombus causing embolic phenomena/stroke-count coumadin /low dose IV heparin bridge (will now stop IV heparin (09/20) as INR above 2 and risk of bleeding increased), cont. warfarin and monitor INR until INR 2.5 Transthoracic echo- mechanical valve not well visualized , normal gradient noted - given high risk for future CVA , needs close [place] [facility] Coumadin should not be interrupted except for life threatening bleed for risk for thrombotic event Dysphagia /Dysarthria : appreciate input from speech pt was ordered mechanical soft diet noted to having difficulty in swallowing , coughing spells during meals diet changed to Pureed speech need to re-evaluate pt will need continued speech and swallow therapt at rehab HTN: resumed home BP meds History of paroxysmal A. fib: Anticoagulation as outlined above CODE STATUS:DNR/DNI Disposition: will need acute rehab for PT/OT and speech therapy referral made for [facility] to monitor in tele till INR therapeutic Admission and Anticipated Discharge Date Admission Date: September 11, 2020 Subjective Pt seen in follow up of CVA, subtherap. INR. Pt feeling well, +dysarthria, able to speak slowly, usually can say words correctly if they are not complicated words. Moving extremities better. No headache, no chest pain, shortness of breath, abd. pain, n/v. INR remains subtherapeutic. 2.4 Will cont. current dose of warfarin, will order CT head for tmrw AM. Hopefully CT will be negative and will be able to transfer pt to [facility] in near future. Discussed with the pt that he will need close INR follow up. Review of Systems Review of Systems: All systems reviewed & are unremarkable except as noted in HPI & below Constitutional: + weakness (rt sided weakness ); no fever and no fatigue Respiratory: no cough and no dyspnea Cardiovascular: no chest pain, no palpitations and no edema Gastrointestinal: no abdominal pain, no nausea and no vomiting Neurologic: + localized weakness (R sided weakness ) and + abnormal speech (dysarthria , ); no tremor(s), no abnormal movements, no headache(s) and no confusion Physical Exam Physical Exam: Constitutional: WD/WN, vitals as above Eyes: PERRL, EOMI, conjunctivae normal, anicteric sclerae + anicteric sclerae and reactive pupils ENMT: external ear and nose normal, oropharynx normal Neck: trachea midline, no thyromegaly Respiratory: normal respiratory effort, lungs clear to auscultation Cardiovascular: RRR, + mechan.valve sound, no murmur, no edema Gastrointestinal (Abdomen): normal bowel sounds, soft, nontender Skin: no rashes, warm and dry Neurologic: + focal motor deficit (rt sided weakness ) , able to move RUE but has significant sensory loss in RUE, also able to move RLE, awake Speech / Cognition: + abnormal speech (dysarthria ) and + expressive aphasia Motor/Sensory: no tremor, and no asterixis Psychiatric: A+Ox3, euthymic affect Results & Data Results & Data ([facility]) Vital Signs (Past 12 Hours) Vital Signs Temp Pulse Pulse Resp BP Pulse Ox 09/21/20 16:09 86 09/21/20 15:53 36.6 C 73 18 131/69 92 09/21/20 12:17 36.4 C L 74 16 144/73 H 94 09/21/20 07:42 78 09/21/20 07:04 37.2 C 85 18 146/68 H 93 Laboratory Results 09/21/20 09/21/20 09/21/20 Range/Units 16:38 11:47 07:49 Hgb (14.0-18.0) g/dL Hct (42-52) % PT (9.0-12.0) Seconds INR (0.9-1.1) POC Glucose 112 H 204 H 231 H (70-99) mg/dl 09/21/20 09/21/20 09/20/20 Range/Units 05:58 05:58 20:21 Hgb 11.6 L (14.0-18.0) g/dL Hct 34.6 L (42-52) % PT 24.0 H (9.0-12.0) Seconds INR 2.4 H (0.9-1.1) POC Glucose 249 H (70-99) mg/dl Medications Administered Current Inpatient Medications Acetaminophen (Acetaminophen 325 Mg Tab) 650 mg PO Q4H PRN PRN Reason: Headache Stop: 10/12/20 17:07 Last Admin: 09/12/20 17:40 Dose: 650 mg Documented by: Allopurinol (Allopurinol 300 Mg Tab) 300 mg PO Q2D [facility] Stop: 10/13/20 08:59 Last Admin: 09/21/20 09:07 Dose: 300 mg Documented by: Ascorbic Acid (Ascorbic Acid 500 Mg Tab) 500 mg PO Q2D@0900 [facility] Stop: 10/13/20 08:59 Last Admin: 09/21/20 09:07 Dose: 500 mg Documented by: Aspirin (Aspirin 81 Mg Ectab) 81 mg PO QAM [facility] Stop: 10/12/20 11:59 Last Admin: 09/21/20 09:07 Dose: 81 mg Documented by: Clobetasol Propionate (Clobetasol Propionate 0.05% Oint 15 Gm Tube) 1 appln EXT BID PRN PRN Reason: psoriasis Stop: 10/17/20 15:48 Last Admin: 09/17/20 17:19 Dose: 1 appln Documented by: Dextrose (Dextrose 50% 50 Ml Syringe) 25 - 50 ml IV UD PRN; Protocol PRN Reason: Hypoglycemia Protocol Stop: 10/20/20 13:43 Ferrous Sulfate (Ferrous Sulfate 325 Mg Tab) 325 mg PO BID [facility] Stop: 10/12/20 20:59 Last Admin: 09/21/20 09:07 Dose: 325 mg Documented by: Fish Oil (Henderson-3 (Purified Fish Oil) 1 Gm Cap) 1 gm PO Q2D [facility] Stop: 10/13/20 08:59 Last Admin: 09/21/20 09:09 Dose: 1 gm Documented by: Folic Acid (Folic Acid 1 Mg Tab) 1 mg PO PM [facility] Stop: 10/12/20 20:59 Last Admin: 09/20/20 21:15 Dose: 1 mg Documented by: Glucagon (Glucagon For Inj 1 Mg Vial) 1 mg SQ UD PRN; Protocol PRN Reason: Hypoglycemia Protocol Stop: 10/20/20 13:43 Glucose (Glucose 10 Tabs/Tube) 4 - 8 tabs PO UD PRN; Protocol PRN Reason: Hypoglycemia Protocol Stop: 10/20/20 13:43 Glucose (Glucose 40% Gel 15 Gm Tube) 15 - 30 gm PO UD PRN; Protocol PRN Reason: Hypoglycemia Protocol Stop: 10/20/20 13:43 Heparin Sodium/Dextrose (Heparin Sodium/Dextrose) 25,000 units in 500 mls @ 0 mls/hr IV .Q0M [facility]; Protocol Stop: 10/14/20 22:59 Last Titration: 09/20/20 12:48 Dose: 0 units/hr, 0 mls/hr Documented by: Insulin Aspart (Insulin Aspart 100 Units/Ml 3 Ml Pen) 0 units SC ACHS [facility] Stop: 10/20/20 16:29 Last Admin: 09/21/20 13:09 Dose: 13 units Documented by: Insulin Glargine (Insulin Glargine Solostar 100 Units/Ml 3 Ml Pen) 30 units SC QAM [facility] Stop: 10/20/20 15:44 Last Admin: 09/21/20 09:09 Dose: 30 units Documented by: Lactobacillus Acidoph/Casei/Rhamnos (Advanced Probiotic 1250 Mg Capsule) 2 cap PO BID [facility] Stop: 10/12/20 20:59 Last Admin: 09/21/20 09:09 Dose: 2 cap Documented by: Lisinopril (Lisinopril 2.5 Mg Tab) 2.5 mg PO QPM [facility] Stop: 10/13/20 20:59 Last Admin: 09/20/20 21:12 Dose: 2.5 mg Documented by: Lorazepam (Lorazepam 1 Mg Tab) 1 mg PO TID PRN PRN Reason: Anxiety Stop: 10/12/20 17:12 Last Admin: 09/19/20 23:46 Dose: 1 mg Documented by: Metoprolol Succinate (Metoprolol Succ 50mg Ext Rel Tab) 50 mg PO QAM [facility] Stop: 10/13/20 17:59 Last Admin: 09/21/20 09:09 Dose: 50 mg Documented by: Miconazole Nitrate (Miconazole Nitrate Powder 43 Gm) 1 appln EXT PRN PRN PRN Reason: Affected Skin Folds Stop: 10/14/20 03:32 Miscellaneous (Fluocinolone 0.01 - Order Awaiting Action) 1 ea N/A QS [facility] Stop: 10/17/20 15:59 Last Admin: 09/21/20 16:00 Dose: Not Given Documented by: Miscellaneous (Carbohydrates For Hypoglycemia ) 15 - 30 gm PO UD PRN PRN Reason: Hypoglycemia Protocol Stop: 10/20/20 13:43 Multivitamins/Minerals (Cerovite Adv Formula Tab) 1 tab PO Q2D [facility] Stop: 10/13/20 08:59 Last Admin: 09/21/20 09:09 Dose: 1 tab Documented by: Pantoprazole Sodium (Pantoprazole 40 Mg Tab) 40 mg PO PM [facility] Stop: 10/12/20 20:59 Last Admin: 12/21/20 21:13 Dose: 40 mg Documented by: Paroxetine HCl (Paroxetine Hcl 20 Mg Tab) 20 mg PO QAM [facility] Stop: 10/13/20 08:59 Last Admin: 09/21/20 09:07 Dose: 20 mg Documented by: Rosuvastatin Calcium (Rosuvastatin Calcium 10 Mg Tab) 10 mg PO QPM [facility] Stop: 10/14/20 20:59 Last Admin: 09/20/20 21:12 Dose: 10 mg Documented by: Tamsulosin HCl (Tamsulosin Hcl 0.4 Mg Cap) 0.4 mg PO QAM [facility] Stop: 10/13/20 08:59 Last Admin: 09/21/20 09:07 Dose: 0.4 mg Documented by: Trazodone HCl (Trazodone Hcl 50 Mg Tab) 50 mg PO [facility] Stop: 10/14/20 20:59 Last Admin: 09/20/20 21:12 Dose: 50 mg Documented by: Vitamin A (Vitamin A 25,000 Unit Cap) 25,000 units PO QAM [facility] Stop: 10/14/20 08:59 Last Admin: 09/21/20 09:07 Dose: 25,000 units Documented by: Vitamin B Complex (Vitamin B Complex Tab) 1 tab PO PM [facility] Stop: 10/12/20 20:59 Last Admin: 09/20/20 21:12 Dose: 1 tab Documented by: Vitamin D (Cholecalciferol 1,000 Units 25 Mcg Tab) 1,000 units PO PM [facility] Stop: 10/12/20 20:59 Last Admin: 09/20/20 21:14 Dose: 1,000 units Documented by: Warfarin Sodium (Warfarin Sod 4 Mg Tab) 8 mg PO DAILY@1600 [facility] Stop: 10/16/20 15:59 Last Admin: 09/21/20 16:00 Dose: 8 mg Documented by:
[2020-09-21] MEDS: CHOLECALCIFEROL 1,000 UNITS 25 MCG TAB PO SCH (20:32)
[2020-09-21] MEDS: PANTOprazole 40 MG TAB PO SCH (20:33)
[2020-09-21] MEDS: lisinopril 2.5 MG TAB PO SCH (20:33)
[2020-09-21] MEDS: VITAMIN B COMPLEX TAB PO SCH (20:33)
[2020-09-21] MEDS: FOLIC ACID 1 MG TAB PO SCH (20:34)
[2020-09-21] MEDS: ROSUVASTATIN CALCIUM 10 MG TAB PO SCH (20:34)
[2020-09-21] MEDS: traZODone HCL 50 MG TAB PO SCH (20:34)
[2020-09-21] MEDS: LORazepam 1 MG TAB PO PRN (23:25)
[2020-09-22 07:27] LABS: Hematocrit (blood only) 36.2 % (42-52)
[2020-09-22 07:42] LABS: INR 2.5 (0.9-1.1); Prothrombin Time 24.7 Seconds (9.0-12.0)
--- NOTE | 2020-09-22 08:05 | CT Scan Report ---
HEAD CT NONCONTRAST CT DOSE: 955.27 mGy.cm HISTORY: Left MCA territory infarct. follow up TECHNIQUE: Multiaxial CT images of the head were performed without the use of intravenous contrast. A utomated exposure control was utilized for this study. A dose lowering technique was utilized adheri ng to the principles of ALARA. Comparison: Head CT 09/15/2020. Findings: The paranasal sinuses and mastoid air cells are clear. Small serpiginous focus of slight in creased density within the left MCA territory infarct suggests trace hemorrhagic transformation. This is best seen on image 25. There is no mass or midline shift. Mild atrophy and microvascular ischemic changes are again noted. There is mild motion artifact. The skull base. Impression: Redemonstration of the left MCA territory infarct which now demonstrates a small serpiginous focus of slight increased density. This suggests hemorrhagic transformation. Consider [address] f ollow-up to ensure stability. These findings were called/faxed to the referring physician following d ictation. ACT 112: Positive. There are findings on this exam that require communication between the performing entity and the patient following Patient Test Result Information Act ([place] Act 112) guidelines. Electronically signed by: Alonso Madrigal M.D. 09/22/2020 8:04 AM
[2020-09-22] MEDS: FERROUS SULFATE 325 MG TAB PO SCH ×2 (08:34→20:37)
[2020-09-22] MEDS: TAMSULOSIN HCL 0.4 MG CAP PO SCH (08:35)
[2020-09-22] MEDS: ASPIRIN 81 MG ECTAB PO SCH (08:35)
[2020-09-22] MEDS: METOPROLOL SUCC 50MG EXT REL TAB PO SCH (08:35)
[2020-09-22] MEDS: PARoxetine HCL 20 MG TAB PO SCH (08:35)
[2020-09-22] MEDS: VITAMIN A 25,000 UNIT CAP PO SCH (08:35)
[2020-09-22] MEDS: INSULIN ASPART 100 UNITS/ML 3 ML PEN SC SCH ×4 (08:36→20:45)
[2020-09-22] MEDS: INSULIN GLARGINE SOLOSTAR 100 UNITS/ML 3 ML PEN SC SCH (08:37)
--- NOTE | 2020-09-22 09:00 | Hospitalist Progress Note ---
Date of Service September 22, 2020 Assessment & Plan (1) Acute CVA (cerebrovascular accident): -This is a Patient presented with acute stroke ( MRI/MRA of brain-large left temporoparietal CVA /left MCA infraction) and received TPA on admission -During the hospital course patient had multiple CT head scans to follow with any changes to the brain after the admission TPA, followed by inpatient neurology service, and subsequently hospitalist Dr Moctezuma resumed patient's systemic anticoagulation because of the presence of mechanical heart valve, also history of atrial fibrillation. Initially the patient was on IV heparin drip and then transitioned to coumadin. The goal INR for patient with mechanical heart valve us between 2.5 to 3.5 and patient was given coumadin 8 mg daily in the hospital to get the INR towards goal. (original home dose coumadin At home takes warfarin 5 mg x4/week and 10 mg x3/week) -by 09/22/2020 the INR 2.5. However, Patient's Head CT scan was performed on 09/22/2020 AM as a follow up to that of 09/15/2020. Findings "Redemonstration of the left MCA territory infarct which now demonstrates a small serpiginous focus of slight increased density. This suggests hemorrhagic transformation. Consider 24 to [address] follow-up to ensure stability." Because of the concern that there could be a hemophagic transformation, hospitalist have discussed with patient and his Melissa by the phone that the cautionary thing to do would be to give Vitamin K (as IV 2.5 mg) to reverse the INR of 2.5 on 09/22/2020 and then follow the radiology recommendation to repeat the head CT scan within 48 hours. Also to hold the aspirin 81 mg daily which was started on this hospital stay. Patient understands that these measures will likely delay any disposition towards discharge from the hospital while he is being monitored in the hospital On exam, patient denies acute headache or dizziness and reports the same left sided weakness with some slurred speech as in previous days. So there does not appear to be any new neurological deficits. Patient continues to be breathing on room air. No shortness of breath. He denies pain anywhere of the body. He denies other symptoms on review of systems Confusion/metabolic encephalopathy on admission -due to acute CVA , resolved (2) S/P AVR (aortic valve replacement): Paroxysmal Atrial Fibrillation -hx of aortic arch aneurysm, status post mechanical aortic valve replacement in at [facility]. -patient had been on Coumadin and had problems with maintaining adequate INR levels with a July 2020 hospital admission to [facility] when he had supratherapeutic INR and associated GI bleed -continue pantoprazole and oral iron supplements Hypertension -on lisinopril and metoprolol resumed home BP meds Hyperlipidemia -LDL 33 ,with in goal, ont home dose of statin Type 2 diabetes mellitus withiout detention current use of insulin -holding off patient's home medications, sliding scale insulin while in the hospital at this time CODE STATUS:DNR/DNI Admission and Anticipated Discharge Date Admission Date: September 11, [address] Subject[address] scan was performed on 09/22/2020 AM as a follow up to that of 09/15/2020. Findings "Redemonstration of the left MCA territory infarct which now demonstrates a small serpiginous focus of slight increased density. This suggests hemorrhagic transformation. Consider 24 to [address] follow-up to ensure stability." Because of the concern that there could be a hemophagic transformation, hospitalist have discussed with patient and his Melissa by the phone that the cautionary thing to do would be to give Vitamin K (as IV 2.5 mg) to reverse the INR of 2.5 on 09/22/2020 and then follow the radiology recommendation to repeat the head CT scan within 48 hours. Also to hold the aspirin 81 mg daily which was started on this hospital stay. Patient understands that these measures will likely delay any disposition towards discharge from the hospital while he is being monitored in the hospital On exam, patient denies acute headache or dizziness and reports the same left sided weakness with some slurred speech as in previous days. So there does not appear to be any new neurological deficits. Patient continues to be breathing on room air. No shortness of breath. He denies pain anywhere of the body. He denies other symptoms on review of systems Review of Systems Review of Systems: All systems reviewed & are unremarkable except as noted in Subjective Physical Exam Constitutional: cooperative and comfortable Eyes: PERRL, conjunctivae normal, anicteric sclerae EOM intact bilaterally Neck: normal visual inspection Respiratory: normal respiratory effort, lungs clear to auscultation normal respiratory effort Cardiovascular: RRR, no murmur, no edema Gastrointestinal (Abdomen): normal bowel sounds, soft, nontender, no hepatosplenomegaly Musculoskeletal: Head/Neck/Chest: normocephalic and head atraumatic Neurologic: PERRL, EOMI, accommodation nl, no face palsy, no dysarthria CN's II-XI intact bilaterally Psychiatric: A+Ox3, euthymic affect Results & Data Results & Data ([facility]) Vital Signs (Past 12 Hours) Vital Signs Temp Pulse Pulse Resp BP Pulse Ox 09/22/20 08:00 36.5 C 76 18 166/79 H 91 09/22/20 07:12 86 09/22/20 03:46 36.6 C 76 20 142/68 H 96 09/22/20 00:24 36.6 C 72 18 119/66 93 09/21/20 22:49 36.6 C 77 18 135/79 95 09/21/20 22:20 70
[2020-09-22] MEDS ORDERED: PHYTONADIONE 2.5 MG in SODIUM CHLORIDE 0.9% 50 ML IV ONE (09:15)
[2020-09-22] MEDS: ADVANCED PROBIOTIC 1250 MG CAPSULE PO SCH ×2 (09:34→20:40)
[2020-09-22] MEDS: traZODone HCL 50 MG TAB PO SCH (20:39)
[2020-09-22] MEDS: FOLIC ACID 1 MG TAB PO SCH (20:39)
[2020-09-22] MEDS: ROSUVASTATIN CALCIUM 10 MG TAB PO SCH (20:40)
[2020-09-22] MEDS: VITAMIN B COMPLEX TAB PO SCH (20:41)
[2020-09-22] MEDS: CHOLECALCIFEROL 1,000 UNITS 25 MCG TAB PO SCH (20:42)
[2020-09-22] MEDS: PANTOprazole 40 MG TAB PO SCH (20:42)
[2020-09-22] MEDS: lisinopril 2.5 MG TAB PO SCH (20:43)
[2020-09-22] MEDS: LORazepam 1 MG TAB PO PRN (22:40)
[2020-09-23 07:30] LABS: Basophils # (auto) 0.03 K/uL (0-0.2); Basophils % (auto) 0.4 %; Eosinophils # (auto) 0.42 K/uL (0-0.5); Eosinophils % (auto) 5.8 %; Hematocrit (blood only) 35.6 % (42-52); Hemoglobin 11.8 g/dL (14.0-18.0); Immature Granulocytes # (auto) 0.06 K/uL (0.00-0.02); Immature Granulocytes % (auto) 0.8 %; Lymphocytes # (auto) 1.19 K/uL (1.2-3.4); Lymphocytes % (auto) 16.5 %; Mean Corpuscular Hemoglobin 32.7 pg (25-34); Mean Corpuscular Hgb Conc 33.1 g/dL (32-36); Mean Corpuscular Volume 98.6 fL (80-100); Mean Platelet Volume 10.1 fL (7.4-10.4); Monocytes # (auto) 1.17 K/uL (0.11-0.59); Monocytes % (auto) 16.2 %; Neutrophils # (auto) 4.36 K/uL (1.4-6.5); Neutrophils % (auto) 60.3 %; Platelet Count 182 K/uL (130-400); RDW Coefficient of Variation 13.7 % (11.5-14.5); Red Blood Count 3.61 M/uL (4.7-6.1); White Blood Count 7.23 K/uL (4.8-10.8)
[2020-09-23 07:43] LABS: INR 1.6 (0.9-1.1); Prothrombin Time 16.1 Seconds (9.0-12.0)
[2020-09-23 08:02] LABS: Albumin Level 3.1 gm/dl (3.4-5.0); Calcium 9.1 mg/dl (8.5-10.1); Creatinine Clr Calc Pharmacy 58.3 ml/min; Est GFR (African American) 57.5; Est GFR (Non-African American) 49.6; Potassium 4.4 mmol/L (3.5-5.1)
[2020-09-23 08:05] LABS: Albumin Globulin Ratio 0.7 (0.9-2); Bilirubin,Total 0.4 mg/dl (0.2-1); Globulin 4.5 gm/dl (2.5-4.0); Total Protein 7.6 gm/dl (6.4-8.2)
--- NOTE | 2020-09-23 08:24 | Hospitalist Progress Note ---
Date of Service September 23, 2020 Assessment & Plan (1) Acute CVA (cerebrovascular accident): -This is a Patient presented with acute stroke ( MRI/MRA of brain-large left temporoparietal CVA /left MCA infraction) and received TPA on admission -During the hospital course patient had multiple CT head scans to follow with any changes to the brain after the admission TPA, followed by inpatient neurology service, and subsequently hospitalist Dr Moctezuma resumed patient's systemic anticoagulation because of the presence of mechanical heart valve, also history of atrial fibrillation. Initially the patient was on IV heparin drip and then transitioned to coumadin. The goal INR for patient with mechanical heart valve us between 2.5 to 3.5 and patient was given coumadin 8 mg daily in the hospital to get the INR towards goal. (original home dose coumadin At home takes warfarin 5 mg x4/week and 10 mg x3/week) -by 09/22/2020 the INR 2.5. However, Patient's Head CT scan was performed on 09/22/2020 AM as a follow up to that of 09/15/2020. Findings "Redemonstration of the left MCA territory infarct which now demonstrates a small serpiginous focus of slight increased density. This suggests hemorrhagic transformation. Consider 24 to [address] follow-up to ensure stability." Because of the concern that there could be a hemophagic transformation, hospitalist have discussed with patient and his Melissa by the phone that the cautionary thing to do would be to give Vitamin K (as IV 2.5 mg) to reverse the INR of 2.5 on 09/22/2020 and then follow the radiology recommendation to repeat the head CT scan within 48 hours. Also to hold the aspirin 81 mg daily which was started on this hospital stay. Patient understands that these measures will likely delay any disposition towards discharge from the hospital while he is being monitored in the hospital On exam, patient denies acute headache or dizziness and reports the same left sided weakness with some slurred speech as in previous days. So there does not appear to be any new neurological deficits. Patient continues to be breathing on room air. No shortness of breath. He denies pain anywhere of the body. He denies other symptoms on review of systems -by 09/23/2020 labs the INR has been reversed to 1.6 and patient will be started on SCDs for DVT prophylaxis. On exam, patient does not have any new neurological deficits - stable left sided weakness and stable dysarthria. Patient denies any new symptoms on review of symptoms. Patient understands that planned repeat head CT will be for 09/24/2020 AM Confusion/metabolic encephalopathy on admission -due to acute CVA , resolved (2) S/P AVR (aortic valve replacement): Paroxysmal Atrial Fibrillation -hx of aortic arch aneurysm, status post mechanical aortic valve replacement in at [facility]. -patient had been on Coumadin and had problems with maintaining adequate INR levels with a July 2020 hospital admission to [facility] when he had supratherapeutic INR and associated GI bleed -continue pantoprazole and oral iron supplements Hypertension -on lisinopril and metoprolol resumed home BP meds Hyperlipidemia -LDL 33 ,with in goal, ont home dose of statin Type 2 diabetes mellitus without director long term care current use of insulin -holding off patient's home medications, sliding scale insulin while in the hospital at this time DVT ppx: SCDs Admission and Anticipated Discharge Date Admission Date: September 11, 2020 Subjective -by 09/23/2020 labs the INR has been reversed to 1.6 and patient will be started on SCDs for DVT prophylaxis. On exam, patient does not have any new neurological deficits - stable left sided weakness and stable dysarthria. Patient denies any new symptoms on review of symptoms. No shortness of breath. No chest pain. no abdomen pain. no nausea. no dizziness. no vomiting. no headaches. no changes in bowel movements or with urination Patient understands that planned repeat head CT will be for 09/24/2020 AM Review of Systems Review of Systems: All systems reviewed & are unremarkable except as noted in Subjective Physical Exam Constitutional: cooperative and comfortable Eyes: PERRL, conjunctivae normal, anicteric sclerae EOM intact bilaterally Neck: normal visual inspection Respiratory: normal respiratory effort, lungs clear to auscultation normal respiratory effort Cardiovascular: RRR, no murmur, no edema Gastrointestinal (Abdomen): normal bowel sounds, soft, nontender, no hepatosplenomegaly Musculoskeletal: Head/Neck/Chest: normocephalic and head atraumatic Neurologic: PERRL, EOMI, accommodation nl, no face palsy, no dysarthria CN's II-XI intact bilaterally Psychiatric: A+Ox3, euthymic affect Results & Data Results & Data ([facility]) Vital Signs (Past 12 Hours) Vital Signs Temp Pulse Pulse Resp BP Pulse Ox 09/23/20 07:25 36.5 C 76 18 145/74 H 94 09/23/20 04:00 36.6 C 79 18 123/68 92 09/23/20 01:51 76 09/22/20 23:00 36.6 C 76 18 113/58 L 90
[2020-09-23] MEDS: CEROVITE ADV FORMULA TAB PO SCH (08:36)
[2020-09-23] MEDS: ADVANCED PROBIOTIC 1250 MG CAPSULE PO SCH ×2 (08:36→21:27)
[2020-09-23] MEDS: VITAMIN A 25,000 UNIT CAP PO SCH (08:36)
[2020-09-23] MEDS: METOPROLOL SUCC 50MG EXT REL TAB PO SCH (08:37)
[2020-09-23] MEDS: FERROUS SULFATE 325 MG TAB PO SCH ×2 (08:37→21:19)
[2020-09-23] MEDS: allopurinoL 300 MG TAB PO SCH (08:37)
[2020-09-23] MEDS: INSULIN ASPART 100 UNITS/ML 3 ML PEN SC SCH ×4 (08:37→21:26)
[2020-09-23] MEDS: OMEGA-3 (PURIFIED FISH OIL) 1 GM CAP PO SCH (08:37)
[2020-09-23] MEDS: TAMSULOSIN HCL 0.4 MG CAP PO SCH (08:37)
[2020-09-23] MEDS: PARoxetine HCL 20 MG TAB PO SCH (08:37)
[2020-09-23] MEDS: ASCORBIC ACID 500 MG TAB PO SCH (08:37)
[2020-09-23] MEDS: INSULIN GLARGINE SOLOSTAR 100 UNITS/ML 3 ML PEN SC SCH (08:38)
[2020-09-23] MEDS: CLOBETASOL PROPIONATE 0.05% OINT 15 GM TUBE EXT PRN (08:45)
[2020-09-23] MEDS: PANTOprazole 40 MG TAB PO SCH (21:19)
[2020-09-23] MEDS: traZODone HCL 50 MG TAB PO SCH (21:19)
[2020-09-23] MEDS: FOLIC ACID 1 MG TAB PO SCH (21:19)
[2020-09-23] MEDS: lisinopril 2.5 MG TAB PO SCH (21:19)
[2020-09-23] MEDS: VITAMIN B COMPLEX TAB PO SCH (21:19)
[2020-09-23] MEDS: ROSUVASTATIN CALCIUM 10 MG TAB PO SCH (21:19)
[2020-09-23] MEDS: CHOLECALCIFEROL 1,000 UNITS 25 MCG TAB PO SCH (21:19)
[2020-09-23] MEDS: LORazepam 1 MG TAB PO PRN (23:48)
[2020-09-24 07:19] LABS: Basophils # (auto) 0.04 K/uL (0-0.2); Basophils % (auto) 0.5 %; Eosinophils # (auto) 0.52 K/uL (0-0.5); Eosinophils % (auto) 6.4 %; Hematocrit (blood only) 36.9 % (42-52); Hemoglobin 12.1 g/dL (14.0-18.0); Immature Granulocytes # (auto) 0.09 K/uL (0.00-0.02); Immature Granulocytes % (auto) 1.1 %; Lymphocytes # (auto) 1.44 K/uL (1.2-3.4); Lymphocytes % (auto) 17.8 %; Mean Corpuscular Hemoglobin 32.3 pg (25-34); Mean Corpuscular Hgb Conc 32.8 g/dL (32-36); Mean Corpuscular Volume 98.4 fL (80-100); Mean Platelet Volume 10.5 fL (7.4-10.4); Monocytes # (auto) 1.14 K/uL (0.11-0.59); Monocytes % (auto) 14.1 %; Neutrophils # (auto) 4.87 K/uL (1.4-6.5); Neutrophils % (auto) 60.1 %; Platelet Count 192 K/uL (130-400); RDW Coefficient of Variation 13.8 % (11.5-14.5); RDW Standard Deviation 49.3 fL (36.4-46.3); Red Blood Count 3.75 M/uL (4.7-6.1)
[2020-09-24 07:33] LABS: INR 1.4 (0.9-1.1); Partial Thromboplastin Ratio 1.1; Partial Thromboplastin Time 31.5 Seconds (21.0-31.0); Prothrombin Time 14.6 Seconds (9.0-12.0)
--- NOTE | 2020-09-24 08:26 | Hospitalist Progress Note ---
Date of Service September 24, 2020 Assessment & Plan (1) Acute CVA (cerebrovascular accident): -This is a Patient presented with acute stroke ( MRI/MRA of brain-large left temporoparietal CVA /left MCA infraction) and received TPA on admission -During the hospital course patient had multiple CT head scans to follow with any changes to the brain after the admission TPA, followed by inpatient neurology service, and subsequently hospitalist Dr Moctezuma resumed patient's systemic anticoagulation because of the presence of mechanical heart valve, also history of atrial fibrillation. Initially the patient was on IV heparin drip and then transitioned to coumadin. The goal INR for patient with mechanical heart valve us between 2.5 to 3.5 and patient was given coumadin 8 mg daily in the hospital to get the INR towards goal. (original home dose coumadin At home takes warfarin 5 mg x4/week and 10 mg x3/week) -by 09/22/2020 the INR 2.5. However, Patient's Head CT scan was performed on 09/22/2020 AM as a follow up to that of 09/15/2020. Findings "Redemonstration of the left MCA territory infarct which now demonstrates a small serpiginous focus of slight increased density. This suggests hemorrhagic transformation. Consider [address] follow-up to ensure stability." Because of the concern that there could be a hemophagic transformation, hospitalist have discussed with patient and his Melissa by the phone that the cautionary thing to do would be to give Vitamin K (as IV 2.5 mg) to reverse the INR of 2.5 on 09/22/2020 and then follow the radiology recommendation to repeat the head CT scan within 48 hours. Also to hold the aspirin 81 mg daily which was started on this hospital stay. Patient understands that these measures will likely delay any disposition towards discharge from the hospital while he is being monitored in the hospital On exam, patient denies acute headache or dizziness and reports the same left sided weakness with some slurred speech as in previous days. So there does not appear to be any new neurological deficits. Patient continues to be breathing on room air. No shortness of breath. He denies pain anywhere of the body. He denies other symptoms on review of systems -by 09/23/2020 labs the INR has been reversed to 1.6 and patient will be started on SCDs for DVT prophylaxis. On exam, patient does not have any new neurological deficits - stable left sided weakness and stable dysarthria. Patient denies any new symptoms on review of symptoms. Patient understands that planned repeat head CT will be for 09/24/2020 AM -09/24/2020: On exam, patient is same baseline compared to recent hospitalization exams and no new neurological deficits as per patient. No new symptoms on review of systems. Patient will be due for the CT Head scan and based on those results, will determine the course of action on systemic anticoagulation or aspirin use Confusion/metabolic encephalopathy on admission -due to acute CVA , resolved (2) S/P AVR (aortic valve replacement): Paroxysmal Atrial Fibrillation -hx of aortic arch aneurysm, status post mechanical aortic valve replacement in at [facility] - therefor the ideal INR would be between 2.5 to 3.5 -patient had been on Coumadin and had problems with maintaining adequate INR levels with a July [address] [facility] when he had supratherapeutic INR and associated GI bleed -continue pantoprazole and oral iron supplements Hypertension -on lisinopril and metoprolol resumed home BP meds Hyperlipidemia -LDL 33 ,with in goal, ont home dose of statin Type 2 diabetes mellitus without correction current use of insulin -holding off patient's home medications -sliding scale insulin while in the hospital at this time DVT ppx: SCDs Admission and Anticipated Discharge Date Admission Date: September 11, 2020 Subjective -09/24/2020: On exam, patient is same baseline compared to recent hospitalization exams and no new neurological deficits as per patient. No new symptoms on review of systems. Patient will be due for the CT Head scan and based on those results, will determine the course of action on systemic anticoagulation or aspirin use Review of Systems Review of Systems: All systems reviewed & are unremarkable except as noted in Subjective Physical Exam Constitutional: cooperative and comfortable Eyes: PERRL, conjunctivae normal, anicteric sclerae EOM intact bilaterally Neck: normal visual inspection Respiratory: normal respiratory effort, lungs clear to auscultation normal respiratory effort Cardiovascular: RRR, no murmur, no edema Gastrointestinal (Abdomen): normal bowel sounds, soft, nontender, no hepatosplenomegaly Musculoskeletal: Head/Neck/Chest: normocephalic and head atraumatic Neurologic: PERRL, EOMI, accommodation nl, no face palsy, no dysarthria CN's II-XI intact bilaterally Psychiatric: A+Ox3, euthymic affect Results & Data Results & Data ([facility]) Vital Signs (Past 12 Hours) Vital Signs Temp Pulse Pulse Resp BP Pulse Ox 09/24/20 07:45 36.8 C 82 18 146/77 H 90 09/24/20 07:28 71 09/24/20 04:00 36.5 C 77 20 127/64 95 09/24/20 00:00 71 09/23/20 23:00 36.5 C 71 20 134/71 94
[2020-09-24] MEDS: PARoxetine HCL 20 MG TAB PO SCH (08:28)
[2020-09-24] MEDS: VITAMIN A 25,000 UNIT CAP PO SCH (08:28)
[2020-09-24] MEDS: TAMSULOSIN HCL 0.4 MG CAP PO SCH (08:29)
[2020-09-24] MEDS: FERROUS SULFATE 325 MG TAB PO SCH ×2 (08:29→20:40)
[2020-09-24] MEDS: METOPROLOL SUCC 50MG EXT REL TAB PO SCH (08:29)
[2020-09-24] MEDS: ADVANCED PROBIOTIC 1250 MG CAPSULE PO SCH ×2 (08:29→20:40)
[2020-09-24] MEDS: INSULIN GLARGINE SOLOSTAR 100 UNITS/ML 3 ML PEN SC SCH (08:30)
[2020-09-24] MEDS: INSULIN ASPART 100 UNITS/ML 3 ML PEN SC SCH ×4 (08:31→21:01)
[2020-09-24] MEDS: CLOBETASOL PROPIONATE 0.05% OINT 15 GM TUBE EXT PRN (08:32)
--- NOTE | 2020-09-24 10:42 | CT Scan Report ---
CT head/brain wo con CLINICAL HISTORY: Hemorrhagic stroke. COMPARISON STUDY: 09/22/2020 TECHNIQUE: Axial CT of the brain is performed from the vertex to the skull base. IV contrast was not administered for this examination. A dose lowering technique was utilized adhering to the principles of ALARA. CT DOSE: 614.27 mGy.cm FINDINGS: No intra or extra-axial mass lesions are visualized. There is a subacute left temporoparietal MCA dis tribution infarct. There are stable areas of gyriform increased attenuation consistent with petechial hemorrhage. This remains unchanged. There is no midline shift. There are patchy white matter hypodensities likely on a small vessel basis. There is no evidence of pathologic ventricular dilatation. There is no evidence of acute sinusitis IMPRESSION: 1. No significant change in the appearance of a subacute left MCA territory infarct which demonstrate s areas of petechial hemorrhage. ACT 112: Negative or not required by law. Electronically signed by: Wilver Gomez M.D. 09/24/2020 10:41 AM
--- NOTE | 2020-09-24 11:56 | Communication Note ---
Date of Service: September 24, 2020 communicated with consolidator neurology Dr. Rodríguez Márquez about 09/24/[address] results. He will review recent CT head scans on this admission
--- NOTE | 2020-09-24 12:21 | Neurology Progress Note ---
Date of Service September 24, 2020 Assessment & Plan Admission and Anticipated Discharge Date Admission Date: September 11, 2020 Subjective INTERVAL UPDATE NOTE: Updated patient received repeat CT head non contrast since last seen by neurology. No change in neuro examine. He is a 80 year old left- handed male with a history of a mechanical aortic valve, pAfib-on coumadin, and previous GI bleed admitted with a left MCA ischemic stroke due to sub therapeutic INR on admission. CT head reviewed and my impression is normal evolution of the left MCA embolic stroke with subtle laminar necrosis. Recommend to resume anticoagulation/ home Coumadin for secondary stroke prevention with goal INR 2.5-3.5. Results & Data ([facility]) Vital Signs (Past 12 Hours) Vital Signs Temp Pulse Pulse Resp BP Pulse Ox 09/24/20 11:02 36.7 C 76 18 138/75 96 09/24/20 07:45 36.8 C 82 18 146/77 H 90 09/24/20 07:28 71 09/24/20 04:00 36.5 C 77 20 127/64 95
[2020-09-24] MEDS ORDERED: Heparin IV Low Dose *NO* Bolus IV SCH (12:43)
[2020-09-24] MEDS: HEPARIN SODIUM/DEXTROSE 25,000 UNITS/500 ML BAG IV SCH (14:04)
[2020-09-24] MEDS: WARFARIN SOD 4 MG TAB PO SCH (16:16)
[2020-09-24] MEDS: HYDROCODONE/ACETAMOPHEN 5/325MG TAB PO PRN (16:41)
[2020-09-24 20:12] LABS: Partial Thromboplastin Ratio 1.4; Partial Thromboplastin Time 38.5 Seconds (21.0-31.0)
[2020-09-24] MEDS: lisinopril 2.5 MG TAB PO SCH (20:39)
[2020-09-24] MEDS: CHOLECALCIFEROL 1,000 UNITS 25 MCG TAB PO SCH (20:39)
[2020-09-24] MEDS: VITAMIN B COMPLEX TAB PO SCH (20:40)
[2020-09-24] MEDS: ROSUVASTATIN CALCIUM 10 MG TAB PO SCH (20:40)
[2020-09-24] MEDS: FOLIC ACID 1 MG TAB PO SCH (20:40)
[2020-09-24] MEDS: PANTOprazole 40 MG TAB PO SCH (20:40)
[2020-09-24] MEDS: traZODone HCL 50 MG TAB PO SCH (20:40)
[2020-09-24] MEDS: LORazepam 1 MG TAB PO PRN (23:42)
[2020-09-25 05:43] LABS: INR 1.4 (0.9-1.1); Partial Thromboplastin Ratio 2.1; Prothrombin Time 14.6 Seconds (9.0-12.0)
[2020-09-25 05:53] LABS: Basophils # (auto) 0.03 K/uL (0-0.2); Basophils % (auto) 0.4 %; Eosinophils # (auto) 0.43 K/uL (0-0.5); Eosinophils % (auto) 5.7 %; Hematocrit (blood only) 38.1 % (42-52); Hemoglobin 12.4 g/dL (14.0-18.0); Immature Granulocytes # (auto) 0.08 K/uL (0.00-0.02); Immature Granulocytes % (auto) 1.1 %; Lymphocytes % (auto) 21.3 %; Mean Corpuscular Hemoglobin 32.3 pg (25-34); Mean Corpuscular Hgb Conc 32.5 g/dL (32-36); Mean Corpuscular Volume 99.2 fL (80-100); Mean Platelet Volume 10.6 fL (7.4-10.4); Monocytes # (auto) 0.99 K/uL (0.11-0.59); Monocytes % (auto) 13.2 %; Neutrophils # (auto) 4.39 K/uL (1.4-6.5); Neutrophils % (auto) 58.3 %; Platelet Count 219 K/uL (130-400); RDW Coefficient of Variation 13.8 % (11.5-14.5); RDW Standard Deviation 49.7 fL (36.4-46.3); Red Blood Count 3.84 M/uL (4.7-6.1); White Blood Count 7.52 K/uL (4.8-10.8)
[2020-09-25 05:57] LABS: Partial Thromboplastin Time 58.9 Seconds (21.0-31.0)
--- NOTE | 2020-09-25 08:11 | Hospitalist Progress Note ---
Date of Service September 25, 2020 Assessment & Plan (1) Acute CVA (cerebrovascular accident): Acute stroke ( MRI/MRA of brain-large left temporoparietal CVA /left MCA infraction) and received TPA on admission -This is a Patient presented with acute stroke ( MRI/MRA of brain-large left temporoparietal CVA /left MCA infraction) and received TPA on admission -During the hospital course patient had multiple CT head scans to follow with any changes to the brain after the admission TPA, followed by inpatient neurology service, and subsequently hospitalist Dr Moctezuma resumed patient's systemic anticoagulation because of the presence of mechanical heart valve, also history of atrial fibrillation. Initially the patient was on IV heparin drip and then transitioned to coumadin. The goal INR for patient with mechanical heart valve us between 2.5 to 3.5 and patient was given coumadin 8 mg daily in the hospital to get the INR towards goal. (original home dose coumadin At home takes warfarin 5 mg x4/week and 10 mg x3/week) -by 09/22/2020 the INR 2.5. However, Patient's Head CT scan was performed on 09/22/2020 AM as a follow up to that of 09/15/2020. Findings "Redemonstration of the left MCA territory infarct which now demonstrates a small serpiginous focus of slight increased density. This suggests hemorrhagic transformation. Consider 24 [address] follow-up to ensure stability." Because of the concern that there could be a hemophagic transformation, hospitalist have discussed with patient and his Melissa by the phone that the cautionary thing to do would be to give Vitamin K (as IV 2.5 mg) to reverse the INR of 2.5 on 09/22/2020 and then follow the radiology recommendation to repeat the head CT scan within 48 hours. Also to hold the aspirin 81 mg daily which was started on this hospital stay. Patient understands that these measures will likely delay any disposition towards discharge from the hospital while he is being monitored in the hospital On exam, patient denies acute headache or dizziness and reports the same left sided weakness with some slurred speech as in previous days. So there does not appear to be any new neurological deficits. Patient continues to be breathing on room air. No shortness of breath. He denies pain anywhere of the body. He denies other symptoms on review of systems -by 09/23/2020 labs the INR has been reversed to 1.6 and patient will be started on SCDs for DVT prophylaxis. On exam, patient does not have any new neurological deficits - stable left sided weakness and stable dysarthria. Patient denies any new symptoms on review of symptoms. Patient understands that planned repeat head CT will be for 09/24/2020 AM -09/24/2020: On exam, patient is same baseline compared to recent hospitalization exams and no new neurological deficits as per patient. No new symptoms on review of systems. CT head on 09/24/2020 : No significant change in the appearance of a subacute left MCA territory infarct which demonstrates areas of petechial hemorrhage." Neurology Dr. Márquez was asked to review the CT head scans and he informed hospitalist to resume anticoagulation in context of patient's heart valve and messaged that "CT head findings are typical for this type of stroke." Patient was started on IV heparin drip and coumadin 8 mg daily on 09/24/2020 -09/25/2020: Patient is continued on IV heparin and coumadin daily with the goals of trying to get INR in the coming hospital days to 2.5 before stopping the IV heparin. Patient agrees to this plan. Hospitalist will continue to hold the aspirin for now during the bridging; will increase crestor to 40 mg daily. Patient continues to have the same mild dysarthria and residual left sided motor weakness. He has been able to self feed but noted to have less dexterity of the left side with eating compared to the right which appears to be from the same left sided weakness as before. Patient continues to be breathing on room air and no chest or abdomen pain, no headache, no dizziness. Patient denies other symptoms on review of systems Confusion/metabolic encephalopathy on admission -due to acute CVA , resolved (2) S/P AVR (aortic valve replacement): status post mechanical aortic valve replacement in Paroxysmal Atrial Fibrillation -hx of aortic arch aneurysm, status post mechanical aortic valve replacement in at 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 Patient agrees to this plan. Hospitalist will hold the aspirin for now. Patient continues to have the same mild dysarthria and residual left sided motor weakness. He has been able to self feed but noted to have less dexterity of the left side with eating compared to the right which appears to be from the same left sided weakness as before. Patient continues to be breathing on room air and no chest or abdomen pain, no headache, no dizziness. Patient denies other symptoms on review of systems Review of Systems Review of Systems: All systems reviewed & are unremarkable except as noted in Subjective Physical Exam Constitutional: cooperative and comfortable Eyes: PERRL, conjunctivae normal, anicteric sclerae EOM intact bilaterally ENMT: external ear and nose normal, oropharynx normal Neck: normal visual inspection Respiratory: normal respiratory effort, lungs clear to auscultation normal respiratory effort Cardiovascular: RRR, no murmur, no edema Gastrointestinal (Abdomen): normal bowel sounds, soft, nontender, no hepatosplenomegaly Musculoskeletal: Head/Neck/Chest: normocephalic and head atraumatic Neurologic: same right sided weakness, same mild dsyarthria Psychiatric: A+Ox3, euthymic affect Results & Data Results & Data ([facility]) Vital Signs (Past 12 Hours) Vital Signs Temp Pulse Pulse Resp BP Pulse Ox 09/25/20 04:52 36.4 C L 68 18 120/64 90 09/24/20 23:59 67 09/24/20 22:52 36.4 C L 71 18 142/84 H 94 09/24/20 20:24 36.4 C L 72 18 106/46 L 95
[2020-09-25] MEDS: ASCORBIC ACID 500 MG TAB PO SCH (08:24)
[2020-09-25] MEDS: ADVANCED PROBIOTIC 1250 MG CAPSULE PO SCH ×2 (08:24→21:05)
[2020-09-25] MEDS: OMEGA-3 (PURIFIED FISH OIL) 1 GM CAP PO SCH (08:24)
[2020-09-25] MEDS: CEROVITE ADV FORMULA TAB PO SCH (08:25)
[2020-09-25] MEDS: PARoxetine HCL 20 MG TAB PO SCH (08:25)
[2020-09-25] MEDS: METOPROLOL SUCC 50MG EXT REL TAB PO SCH (08:25)
[2020-09-25] MEDS: FERROUS SULFATE 325 MG TAB PO SCH ×2 (08:26→21:06)
[2020-09-25] MEDS: VITAMIN A 25,000 UNIT CAP PO SCH (08:26)
[2020-09-25] MEDS: TAMSULOSIN HCL 0.4 MG CAP PO SCH (08:26)
[2020-09-25] MEDS: allopurinoL 300 MG TAB PO SCH (08:26)
[2020-09-25] MEDS: INSULIN ASPART 100 UNITS/ML 3 ML PEN SC SCH ×4 (08:29→21:06)
[2020-09-25] MEDS: INSULIN GLARGINE SOLOSTAR 100 UNITS/ML 3 ML PEN SC SCH (08:30)
[2020-09-25] MEDS: HEPARIN SODIUM/DEXTROSE 25,000 UNITS/500 ML BAG IV SCH (13:25)
[2020-09-25] MEDS: WARFARIN SOD 4 MG TAB PO SCH (17:19)
[2020-09-25] MEDS: CHOLECALCIFEROL 1,000 UNITS 25 MCG TAB PO SCH (21:05)
[2020-09-25] MEDS: ROSUVASTATIN CALCIUM 20 MG TAB PO SCH (21:05)
[2020-09-25] MEDS: traZODone HCL 50 MG TAB PO SCH (21:06)
[2020-09-25] MEDS: lisinopril 2.5 MG TAB PO SCH (21:06)
[2020-09-25] MEDS: PANTOprazole 40 MG TAB PO SCH (21:06)
[2020-09-25] MEDS: FOLIC ACID 1 MG TAB PO SCH (21:06)
[2020-09-25] MEDS: VITAMIN B COMPLEX TAB PO SCH (21:06)
[2020-09-25] MEDS: LORazepam 1 MG TAB PO PRN (23:29)
[2020-09-26] MEDS: TAMSULOSIN HCL 0.4 MG CAP PO SCH (07:42)
[2020-09-26] MEDS: FERROUS SULFATE 325 MG TAB PO SCH ×2 (07:42→20:48)
[2020-09-26] MEDS: ADVANCED PROBIOTIC 1250 MG CAPSULE PO SCH ×2 (07:42→20:49)
[2020-09-26] MEDS: VITAMIN A 25,000 UNIT CAP PO SCH (07:42)
[2020-09-26] MEDS: PARoxetine HCL 20 MG TAB PO SCH (07:42)
[2020-09-26] MEDS: METOPROLOL SUCC 50MG EXT REL TAB PO SCH (07:43)
[2020-09-26 08:15] LABS: Basophils # (auto) 0.04 K/uL (0-0.2); Basophils % (auto) 0.6 %; Eosinophils # (auto) 0.45 K/uL (0-0.5); Eosinophils % (auto) 6.2 %; Hematocrit (blood only) 35.7 % (42-52); Hemoglobin 11.7 g/dL (14.0-18.0); Immature Granulocytes # (auto) 0.05 K/uL (0.00-0.02); Immature Granulocytes % (auto) 0.7 %; Lymphocytes # (auto) 1.17 K/uL (1.2-3.4); Lymphocytes % (auto) 16.1 %; Mean Corpuscular Hemoglobin 32.3 pg (25-34); Mean Corpuscular Hgb Conc 32.8 g/dL (32-36); Mean Corpuscular Volume 98.6 fL (80-100); Mean Platelet Volume 10.4 fL (7.4-10.4); Monocytes # (auto) 0.99 K/uL (0.11-0.59); Monocytes % (auto) 13.7 %; Neutrophils # (auto) 4.55 K/uL (1.4-6.5); Neutrophils % (auto) 62.7 %; Platelet Count 194 K/uL (130-400); RDW Coefficient of Variation 14.1 % (11.5-14.5); RDW Standard Deviation 50.2 fL (36.4-46.3); Red Blood Count 3.62 M/uL (4.7-6.1); White Blood Count 7.25 K/uL (4.8-10.8)
[2020-09-26 08:37] LABS: INR 1.6 (0.9-1.1)
[2020-09-26 08:42] LABS: Calcium 9.3 mg/dl (8.5-10.1); Creatinine Clr Calc Pharmacy 61.5 ml/min; Est GFR (African American) 61.9; Est GFR (Non-African American) 53.4; Potassium 4.2 mmol/L (3.5-5.1)
[2020-09-26] MEDS: INSULIN ASPART 100 UNITS/ML 3 ML PEN SC SCH ×4 (08:53→20:56)
[2020-09-26] MEDS: INSULIN GLARGINE SOLOSTAR 100 UNITS/ML 3 ML PEN SC SCH (08:56)
--- NOTE | 2020-09-26 11:27 | Hospitalist Progress Note ---
Date of Service September 26, 2020 Assessment & Plan (1) Acute CVA (cerebrovascular accident): Acute stroke ( MRI/MRA of brain-large left temporoparietal CVA /left MCA infraction) and received TPA on admission -This is a Patient presented with acute stroke ( MRI/MRA of brain-large left temporoparietal CVA /left MCA infraction) and received TPA on admission -During the hospital course patient had multiple CT head scans to follow with any changes to the brain after the admission TPA, followed by inpatient neurology service, and subsequently hospitalist Dr Moctezuma resumed patient's systemic anticoagulation because of the presence of mechanical heart valve, also history of atrial fibrillation. Initially the patient was on IV heparin drip and then transitioned to coumadin. The goal INR for patient with mechanical heart valve us between 2.5 to 3.5 and patient was given coumadin 8 mg daily in the hospital to get the INR towards goal. (original home dose coumadin At home takes warfarin 5 mg x4/week and 10 mg x3/week) -by 09/22/2020 the INR 2.5. stable left sided weakness and stable dysarthria However, Patient's Head CT scan was performed on 09/22/2020 AM as a follow up to that of 09/15/2020. Findings "Redemonstration of the left MCA territory infarct which now demonstrates a small serpiginous focus of slight increased density. This suggests hemorrhagic transformation. Consider 24 [address] follow- up to ensure stability." Because of the concern that there could be a hemophagic transformation, hospitalist have discussed with patient and his Melissa by the phone that the cautionary thing to do would be to give Vitamin K (as IV 2.5 mg) to reverse the INR of 2.5 on 09/22/2020 and then follow the radiology recommendation to repeat the head CT scan within 48 hours. Also to hold the aspirin 81 mg daily which was started on this hospital stay. -by 09/23/2020: off all blood thinners -09/24/2020: On exam no new neurological deficits as per patient. The follow up CT head on 09/24/2020 : No significant change in the appearance of a subacute left MCA territory infarct which demonstrates areas of petechial hemorrhage." Neurology Dr. Márquez was asked to review the CT head scans and he informed hospitalist to resume anticoagulation in context of patient's heart valve and messaged that "CT head findings are typical for this type of stroke." Patient was started on IV heparin drip and coumadin 8 mg daily on 09/24/2020 and aspirin held -09/25/2020: on IV heparin and coumadin 09/26/2020: Patient was seen and examined by medical doctor and nurse after he had returned from bathroom. There are drops of blood on the floor. Patient apparently has some bleeding from groin abrasion which has some scabs. Patient denies any blood per rectum or from penis. IV heparin to be paused for now with plans for FOBT with next bowel movement and UA with next urine. Since likely this is not a GI bleed or hematuria, will continue coumadin for now Confusion/metabolic encephalopathy on admission -due to acute CVA , resolved (2) S/P AVR (aortic valve replacement): status post mechanical aortic valve replacement in Paroxysmal Atrial Fibrillation -hx of aortic arch aneurysm, status post mechanical aortic valve replacement in at [facility] - therefor the ideal INR would be between 2.5 to 3.5 -patient had been on Coumadin and had problems with maintaining adequate INR levels with a July 2020 hospital admission to [facility] when he had supratherapeutic INR and associated GI bleed -continue pantoprazole and oral iron supplements -anticoagulation as described above Hypertension -on lisinopril and metoprolol Hyperlipidemia -LDL 33 ,with in goal, ont home dose of statin 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 There are drops of blood on the floor. Patient apparently has some bleeding from groin abrasion which has some scabs. Patient denies any blood per rectum or from penis. IV heparin to be paused for now with plans for FOBT with next bowel movement and UA with next urine. Since likely this is not a GI bleed or hematuria, will continue coumadin for now. Patient breathing on room air. No acute shortness of breath. same baseline mild dysarthria. no other symptoms on review of systems Review of Systems Review of Systems: All systems reviewed & are unremarkable except as noted in Subjective Physical Exam Constitutional: cooperative and comfortable Eyes: PERRL, conjunctivae normal, anicteric sclerae EOM intact bilaterally ENMT: external ear and nose normal, oropharynx normal Neck: normal visual inspection Respiratory: normal respiratory effort, lungs clear to auscultation normal respiratory effort Cardiovascular: RRR, no murmur, no edema Gastrointestinal (Abdomen): normal bowel sounds, soft, nontender, no hepatosplenomegaly Musculoskeletal: Head/Neck/Chest: normocephalic and head atraumatic Skin: abrasion of the groin area Neurologic: moves all extremities and awake (baseline mild dysarthria) Psychiatric: A+Ox3, euthymic affect Results & Data Results & Data ([facility]) Vital Signs (Past 12 Hours) Vital Signs Temp Pulse Pulse Resp BP Pulse Ox 09/26/20 04:00 36.6 C 66 18 123/66 91 09/26/20 00:00 71
[2020-09-26] MEDS: WARFARIN SOD 4 MG TAB PO SCH (15:57)
[2020-09-26 19:14] LABS: Appearance Urine Turbid (Clear); Bacteria Urine Automated Negative (Negative); Bilirubin Urine Negative (Negative); Blood Urine 1+ (Negative); Color Urine Yellow; Glucose Urine UA Negative (Negative); Ketones Urine Negative (Negative); Leukocyte Esterase Urine 3+ (Negative); Nitrite Urine Negative (Negative); Protein Urine Negative (Negative); RBC Urine Automated 0-4 /hpf (0-4); Specific Gravity Urine 1.009 (1.000-1.030); Urobilinogen Urine Negative (Negative); WBC Urine Automated >30 /hpf (0-5); pH Urine 6.5 (4.5-7.5)
[2020-09-26] MEDS: HYDROCODONE/ACETAMOPHEN 5/325MG TAB PO PRN (20:42)
[2020-09-26] MEDS: CHOLECALCIFEROL 1,000 UNITS 25 MCG TAB PO SCH (20:46)
[2020-09-26] MEDS: ROSUVASTATIN CALCIUM 20 MG TAB PO SCH (20:47)
[2020-09-26] MEDS: traZODone HCL 50 MG TAB PO SCH (20:47)
[2020-09-26] MEDS: FOLIC ACID 1 MG TAB PO SCH (20:48)
[2020-09-26] MEDS: PANTOprazole 40 MG TAB PO SCH (20:49)
[2020-09-26] MEDS: VITAMIN B COMPLEX TAB PO SCH (20:50)
[2020-09-26] MEDS: lisinopril 2.5 MG TAB PO SCH (20:50)
[2020-09-27] MEDS: HEPARIN SODIUM/DEXTROSE 25,000 UNITS/500 ML BAG IV SCH ×2 (00:04→10:00)
[2020-09-27 08:18] LABS: INR 1.7 (0.9-1.1); Prothrombin Time 17.2 Seconds (9.0-12.0)
[2020-09-27] MEDS ORDERED: Heparin IV Standard *NO* Bolus IV SCH (09:07)
--- NOTE | 2020-09-27 09:08 | Hospitalist Progress Note ---
Date of Service September 27, 2020 Assessment & Plan (1) Acute CVA (cerebrovascular accident): Acute stroke ( MRI/MRA of brain-large left temporoparietal CVA /left MCA infraction) and received TPA on admission -This is a Patient presented with acute stroke ( MRI/MRA of brain-large left temporoparietal CVA /left MCA infraction) and received TPA on admission -During the hospital course patient had multiple CT head scans to follow with any changes to the brain after the admission TPA, followed by inpatient neurology service, and subsequently hospitalist Dr Moctezuma resumed patient's systemic anticoagulation because of the presence of mechanical heart valve, also history of atrial fibrillation. Initially the patient was on IV heparin drip and then transitioned to coumadin. The goal INR for patient with mechanical heart valve us between 2.5 to 3.5 and patient was given coumadin 8 mg daily in the hospital to get the INR towards goal. (original home dose coumadin At home takes warfarin 5 mg x4/week and 10 mg x3/week) -by 09/22/2020 the INR 2.5. stable left sided weakness and stable dysarthria However, Patient's Head CT scan was performed on 09/22/2020 AM as a follow up to that of 09/15/2020. Findings "Redemonstration of the left MCA territory infarct which now demonstrates a small serpiginous focus of slight increased density. This suggests hemorrhagic transformation. Consider [address] follow- up to ensure stability." Because of the concern that there could be a hemophagic transformation, hospitalist have discussed with patient and his Melissa by the phone that the cautionary thing to do would be to give Vitamin K (as IV 2.5 mg) to reverse the INR of 2.5 on 09/22/2020 and then follow the radiology recommendation to repeat the head CT scan within 48 hours. Also to hold the aspirin 81 mg daily which was started on this hospital stay. -by 09/23/2020: off all blood thinners -09/24/2020: On exam no new neurological deficits as per patient. The follow up CT head on 09/24/2020 : No significant change in the appearance of a subacute left MCA territory infarct which demonstrates areas of petechial hemorrhage." Neurology Dr. Márquez was asked to review the CT head scans and he informed hospitalist to resume anticoagulation in context of patient's heart valve and messaged that "CT head findings are typical for this type of stroke." Patient was started on IV heparin drip and coumadin 8 mg daily on 09/24/2020 and aspirin held -09/25/2020: on IV heparin and coumadin 09/26/2020: Patient was seen and examined by medical doctor and nurse after he had returned from bathroom. There are drops of blood on the floor. Patient apparently has some bleeding from groin abrasion which has some scabs. Patient denies any blood per rectum or from penis. IV heparin to be paused for now with plans for FOBT with next bowel movement and UA with next urine. Since likely this is not a GI bleed or hematuria, will continue coumadin for now -09/27/2020: INR is 1.7. Patient denies gross bleeding of the groin skin. Patient denies any bleeding in urine or from stool. Patient agrees to allowing IV heparin to be resumed. Patient denies other symptoms on review of systems. same baseline dysarthria. Confusion/metabolic encephalopathy on admission -due to acute CVA , resolved (2) S/P AVR (aortic valve replacement): status post mechanical aortic valve replacement in Paroxysmal Atrial Fibrillation -hx of aortic arch aneurysm, status post mechanical aortic valve replacement in at [facility] - therefor the ideal INR would be between 2.5 to 3.5 -patient had been on Coumadin and had problems with maintaining adequate INR levels with a July [address] 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 Patient denies gross bleeding of the groin skin. Patient denies any bleeding in urine or from stool. Patient agrees to allowing IV heparin to be resumed. Patient denies other symptoms on review of systems. same baseline dysarthria. Review of Systems Review of Systems: All systems reviewed & are unremarkable except as noted in Subjective Physical Exam Constitutional: cooperative and comfortable Eyes: PERRL, conjunctivae normal, anicteric sclerae EOM intact bilaterally ENMT: external ear and nose normal, oropharynx normal Neck: normal visual inspection Respiratory: normal respiratory effort, lungs clear to auscultation normal respiratory effort Cardiovascular: RRR, no murmur, no edema Gastrointestinal (Abdomen): normal bowel sounds, soft, nontender, no hepatosplenomegaly Musculoskeletal: Head/Neck/Chest: normocephalic and head atraumatic Neurologic: PERRL, EOMI, accommodation nl, no face palsy, no dysarthria moves all extremities and awake (baseline mild dysarthria) Psychiatric: A+Ox3, euthymic affect Results & Data Results & Data ([facility]) Vital Signs (Past 12 Hours) Vital Signs Temp Pulse Pulse Resp BP Pulse Ox 09/27/20 07:24 36.4 C L 75 20 158/78 H 92 09/27/20 03:20 36.4 C L 66 16 150/70 H 91 09/27/20 02:27 74 09/26/20 23:22 36.3 C L 78 18 102/55 L 95
[2020-09-27] MEDS: VITAMIN A 25,000 UNIT CAP PO SCH (09:22)
[2020-09-27] MEDS: TAMSULOSIN HCL 0.4 MG CAP PO SCH (09:22)
[2020-09-27] MEDS: METOPROLOL SUCC 50MG EXT REL TAB PO SCH (09:22)
[2020-09-27] MEDS: PARoxetine HCL 20 MG TAB PO SCH (09:22)
[2020-09-27] MEDS: OMEGA-3 (PURIFIED FISH OIL) 1 GM CAP PO SCH (09:22)
[2020-09-27] MEDS: allopurinoL 300 MG TAB PO SCH (09:23)
[2020-09-27] MEDS: CEROVITE ADV FORMULA TAB PO SCH (09:23)
[2020-09-27] MEDS: ASCORBIC ACID 500 MG TAB PO SCH (09:23)
[2020-09-27] MEDS: ADVANCED PROBIOTIC 1250 MG CAPSULE PO SCH ×2 (09:23→20:30)
[2020-09-27] MEDS: FERROUS SULFATE 325 MG TAB PO SCH ×2 (09:23→20:31)
[2020-09-27] MEDS: INSULIN GLARGINE SOLOSTAR 100 UNITS/ML 3 ML PEN SC SCH (09:28)
[2020-09-27] MEDS: INSULIN ASPART 100 UNITS/ML 3 ML PEN SC SCH ×4 (09:28→21:46)
[2020-09-27] MEDS: WARFARIN SOD 4 MG TAB PO SCH (15:57)
[2020-09-27] MEDS: HYDROCODONE/ACETAMOPHEN 5/325MG TAB PO PRN (15:58)
[2020-09-27 16:29] LABS: Partial Thromboplastin Ratio 2.8
[2020-09-27 16:33] LABS: Partial Thromboplastin Time 76.8 Seconds (21.0-31.0)
[2020-09-27] MEDS: lisinopril 2.5 MG TAB PO SCH (20:29)
[2020-09-27] MEDS: traZODone HCL 50 MG TAB PO SCH (20:30)
[2020-09-27] MEDS: PANTOprazole 40 MG TAB PO SCH (20:30)
[2020-09-27] MEDS: VITAMIN B COMPLEX TAB PO SCH (20:31)
[2020-09-27] MEDS: CHOLECALCIFEROL 1,000 UNITS 25 MCG TAB PO SCH (20:32)
[2020-09-27] MEDS: ROSUVASTATIN CALCIUM 20 MG TAB PO SCH (20:32)
[2020-09-27] MEDS: FOLIC ACID 1 MG TAB PO SCH (20:32)
[2020-09-27 22:45] LABS: Partial Thromboplastin Ratio 3.4
[2020-09-27 22:49] LABS: Partial Thromboplastin Time 94.6 Seconds (21.0-31.0)
[2020-09-27] MEDS: LORazepam 1 MG TAB PO PRN (23:51)
[2020-09-28] MEDS: HEPARIN SODIUM/DEXTROSE 25,000 UNITS/500 ML BAG IV SCH ×3 (00:44→23:48)
[2020-09-28 06:26] LABS: Basophils # (auto) 0.03 K/uL (0-0.2); Basophils % (auto) 0.4 %; Eosinophils % (auto) 6.4 %; Hematocrit (blood only) 35.6 % (42-52); Hemoglobin 11.9 g/dL (14.0-18.0); Immature Granulocytes # (auto) 0.08 K/uL (0.00-0.02); Lymphocytes # (auto) 1.46 K/uL (1.2-3.4); Lymphocytes % (auto) 18.7 %; Mean Corpuscular Hemoglobin 32.9 pg (25-34); Mean Corpuscular Hgb Conc 33.4 g/dL (32-36); Mean Corpuscular Volume 98.3 fL (80-100); Mean Platelet Volume 10.3 fL (7.4-10.4); Monocytes # (auto) 0.99 K/uL (0.11-0.59); Monocytes % (auto) 12.7 %; Neutrophils # (auto) 4.75 K/uL (1.4-6.5); Neutrophils % (auto) 60.8 %; Platelet Count 182 K/uL (130-400); RDW Coefficient of Variation 14.1 % (11.5-14.5); RDW Standard Deviation 50.1 fL (36.4-46.3); Red Blood Count 3.62 M/uL (4.7-6.1); White Blood Count 7.81 K/uL (4.8-10.8)
[2020-09-28 06:52] LABS: Partial Thromboplastin Ratio 3.1; Prothrombin Time 20.2 Seconds (9.0-12.0)
[2020-09-28 07:03] LABS: Partial Thromboplastin Time 86.4 Seconds (21.0-31.0)
[2020-09-28] MEDS: FERROUS SULFATE 325 MG TAB PO SCH ×2 (08:19→20:54)
[2020-09-28] MEDS: PARoxetine HCL 20 MG TAB PO SCH (08:20)
[2020-09-28] MEDS: METOPROLOL SUCC 50MG EXT REL TAB PO SCH (08:20)
[2020-09-28] MEDS: VITAMIN A 25,000 UNIT CAP PO SCH (08:20)
[2020-09-28] MEDS: ADVANCED PROBIOTIC 1250 MG CAPSULE PO SCH ×2 (08:20→20:55)
[2020-09-28] MEDS: TAMSULOSIN HCL 0.4 MG CAP PO SCH (08:20)
--- NOTE | 2020-09-28 08:20 | Hospitalist Progress Note ---
Date of Service September 28, 2020 Assessment & Plan (1) Acute CVA (cerebrovascular accident): Acute stroke ( MRI/MRA of brain-large left temporoparietal CVA /left MCA infraction) and received TPA on admission -This is a Patient presented with acute stroke ( MRI/MRA of brain-large left temporoparietal CVA /left MCA infraction) and received TPA on admission -During the hospital course patient had multiple CT head scans to follow with any changes to the brain after the admission TPA, followed by inpatient neurology service, and subsequently hospitalist Dr Moctezuma resumed patient's systemic anticoagulation because of the presence of mechanical heart valve, also history of atrial fibrillation. Initially the patient was on IV heparin drip and then transitioned to coumadin. The goal INR for patient with mechanical heart valve us between 2.5 to 3.5 and patient was given coumadin 8 mg daily in the hospital to get the INR towards goal. (original home dose coumadin At home takes warfarin 5 mg x4/week and 10 mg x3/week) -by 09/22/2020 the INR 2.5. stable left sided weakness and stable dysarthria However, Patient's Head CT scan was performed on 09/22/2020 AM as a follow up to that of 09/15/2020. Findings "Redemonstration of the left MCA territory infarct which now demonstrates a small serpiginous focus of slight increased density. This suggests hemorrhagic transformation. Consider 24 [address] follow- up to ensure stability." Because of the concern that there could be a hemophagic transformation, hospitalist have discussed with patient and his Melissa by the phone that the cautionary thing to do would be to give Vitamin K (as IV 2.5 mg) to reverse the INR of 2.5 on 09/22/2020 and then follow the radiology recommendation to repeat the head CT scan within 48 hours. Also to hold the aspirin 81 mg daily which was started on this hospital stay. -by 09/23/2020: off all blood thinners -09/24/2020: On exam no new neurological deficits as per patient. The follow up CT head on 09/24/2020 : No significant change in the appearance of a subacute left MCA territory infarct which demonstrates areas of petechial hemorrhage." Neurology Dr. Márquez was asked to review the CT head scans and he informed hospitalist to resume anticoagulation in context of patient's heart valve and messaged that "CT head findings are typical for this type of stroke." Patient was started on IV heparin drip and coumadin 8 mg daily on 09/24/2020 and aspirin held -09/25/2020: on IV heparin and coumadin 09/26/2020: Patient was seen and examined by medical doctor and nurse after he had returned from bathroom. There are drops of blood on the floor. Patient apparently has some bleeding from groin abrasion which has some scabs. Patient denies any blood per rectum or from penis. IV heparin to be paused for now with plans for FOBT with next bowel movement and UA with next urine. Since likely this is not a GI bleed or hematuria, will continue coumadin for now -09/27/2020: INR is 1.7. Patient denies gross bleeding of the groin skin. Patient denies any bleeding in urine or from stool. Patient agrees to allowing IV heparin to be resumed. Patient denies other symptoms on review of systems. same baseline dysarthria. he has negative FOBT. -09/28/2020: Patient's INR is 2 on 09/28/2020 but the target INR is 2.5 to 3.5 before heparin drip can be discontinued. Heparin drip rate being adjusted by nursing staff based on PTTs. Patient denies any bleed from groin folds. He can be resumed aspirin 81 mg daily on 09/28/2020 with the anticoagulation. Patient has baseline dysarthria and understands that in this hospital course, he will likely need a discharge to a physical therapy center once INR is at goal so that he can get further physical therapy for residual right sided weakness. Patient will be followed by a different [facility] hospitalist starting on 09/29/2020 Confusion/metabolic encephalopathy on admission -due to acute CVA , resolved (2) S/P AVR (aortic valve replacement): status post mechanical aortic valve replacement in Paroxysmal Atrial Fibrillation -hx of aortic arch aneurysm, status post mechanical aortic valve replacement in at [facility] - therefor the ideal INR would be between 2.5 to 3.5 -patient had been on Coumadin and had problems with maintaining adequate INR levels with a July 2020 hospital admission to [facility] when he had supratherapeutic INR and associated GI bleed -continue pantoprazole and oral iron supplements -anticoagulation as described above Hypertension -on lisinopril and metoprolol Hyperlipidemia -LDL 33 ,with in goal, ont home dose of statin 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 Heparin drip rate being adjusted by nursing staff based on PTTs. Patient denies any bleed from groin folds. He can be resumed aspirin 81 mg daily on 09/28/2020 with the anticoagulation. Patient has baseline dysarthria and understands that in this hospital course, he will likely need a discharge to a physical therapy center once INR is at goal so that he can get further physical therapy for residual right sided weakness. Patient will be followed by a different [facility] hospitalist starting on 09/29/2020 Patient denies other symptoms on review of systems. continues to be breathing comfortably on room air and no acute pain Review of Systems Review of Systems: All systems reviewed & are unremarkable except as noted in Subjective Physical Exam Constitutional: cooperative and comfortable Eyes: PERRL, conjunctivae normal, anicteric sclerae EOM intact bilaterally ENMT: external ear and nose normal, oropharynx normal Neck: normal visual inspection Respiratory: normal respiratory effort, lungs clear to auscultation normal respiratory effort Cardiovascular: RRR, no murmur, no edema Gastrointestinal (Abdomen): normal bowel sounds, soft, nontender, no hepatosplenomegaly Musculoskeletal: Head/Neck/Chest: normocephalic and head atraumatic Neurologic: PERRL, EOMI, accommodation nl, no face palsy, no dysarthria moves all extremities and awake (baseline mild dysarthria) Psychiatric: A+Ox3, euthymic affect Results & Data Results & Data ([facility]) Vital Signs (Past 12 Hours) Vital Signs Temp Pulse Pulse Resp BP Pulse Ox 09/28/20 07:30 36.6 C 73 18 113/71 96 09/28/20 04:07 68 09/28/20 04:00 36.4 C L 75 16 121/62 93 09/27/20 23:41 36.6 C 69 18 118/67 92
[2020-09-28] MEDS: INSULIN GLARGINE SOLOSTAR 100 UNITS/ML 3 ML PEN SC SCH (08:26)
[2020-09-28] MEDS: INSULIN ASPART 100 UNITS/ML 3 ML PEN SC SCH ×4 (08:26→20:55)
[2020-09-28] MEDS ORDERED: INSULIN ASPART 100 UNITS/ML 3 ML PEN SC ONE (11:59)
[2020-09-28] MEDS: ASPIRIN 81 MG ECTAB PO SCH (12:12)
[2020-09-28 15:00] LABS: Partial Thromboplastin Ratio 2.2
[2020-09-28 15:20] LABS: Partial Thromboplastin Time 60.9 Seconds (21.0-31.0)
[2020-09-28] MEDS: WARFARIN SOD 4 MG TAB PO SCH (16:37)
[2020-09-28] MEDS: HYDROCODONE/ACETAMOPHEN 5/325MG TAB PO PRN (16:37)
[2020-09-28] MEDS ORDERED: GABAPENTIN 100 MG CAP PO ONE (18:31)
[2020-09-28] MEDS: traZODone HCL 50 MG TAB PO SCH (20:54)
[2020-09-28] MEDS: FOLIC ACID 1 MG TAB PO SCH (20:55)
[2020-09-28] MEDS: ROSUVASTATIN CALCIUM 20 MG TAB PO SCH (20:55)
[2020-09-28] MEDS: VITAMIN B COMPLEX TAB PO SCH (20:55)
[2020-09-28] MEDS: PANTOprazole 40 MG TAB PO SCH (20:55)
[2020-09-28] MEDS: CHOLECALCIFEROL 1,000 UNITS 25 MCG TAB PO SCH (20:55)
[2020-09-28] MEDS: lisinopril 2.5 MG TAB PO SCH (20:55)
[2020-09-28] MEDS: LORazepam 1 MG TAB PO PRN (23:41)
[2020-09-29 07:38] LABS: Basophils # (auto) 0.03 K/uL (0-0.2); Basophils % (auto) 0.4 %; Eosinophils # (auto) 0.42 K/uL (0-0.5); Eosinophils % (auto) 6.2 %; Hematocrit (blood only) 35.9 % (42-52); Hemoglobin 11.8 g/dL (14.0-18.0); Immature Granulocytes # (auto) 0.05 K/uL (0.00-0.02); Immature Granulocytes % (auto) 0.7 %; Lymphocytes # (auto) 1.23 K/uL (1.2-3.4); Lymphocytes % (auto) 18.1 %; Mean Corpuscular Hemoglobin 32.6 pg (25-34); Mean Corpuscular Hgb Conc 32.9 g/dL (32-36); Mean Corpuscular Volume 99.2 fL (80-100); Mean Platelet Volume 10.4 fL (7.4-10.4); Monocytes # (auto) 0.95 K/uL (0.11-0.59); Neutrophils # (auto) 4.13 K/uL (1.4-6.5); Neutrophils % (auto) 60.6 %; Platelet Count 166 K/uL (130-400); RDW Coefficient of Variation 14.1 % (11.5-14.5); RDW Standard Deviation 50.5 fL (36.4-46.3); Red Blood Count 3.62 M/uL (4.7-6.1); White Blood Count 6.81 K/uL (4.8-10.8)
[2020-09-29 07:59] LABS: INR 2.4 (0.9-1.1)
[2020-09-29 08:02] LABS: Partial Thromboplastin Time 112.7 Seconds (21.0-31.0)
[2020-09-29 08:03] LABS: Albumin Level 3.2 gm/dl (3.4-5.0); BUN Creatinine Ratio 21.2 (10-20); Calcium 9.3 mg/dl (8.5-10.1); Creatinine Clr Calc Pharmacy 57.4 ml/min; Est GFR (Non-African American) 49.1; Potassium 4.1 mmol/L (3.5-5.1)
[2020-09-29 08:06] LABS: Albumin Globulin Ratio 0.7 (0.9-2); Bilirubin,Total 0.4 mg/dl (0.2-1); Globulin 4.3 gm/dl (2.5-4.0); Total Protein 7.5 gm/dl (6.4-8.2)
[2020-09-29] MEDS: GABAPENTIN 100 MG CAP PO SCH ×2 (08:20→21:56)
[2020-09-29] MEDS: METOPROLOL SUCC 50MG EXT REL TAB PO SCH (08:22)
[2020-09-29] MEDS: VITAMIN A 25,000 UNIT CAP PO SCH (08:22)
[2020-09-29] MEDS: TAMSULOSIN HCL 0.4 MG CAP PO SCH (08:22)
[2020-09-29] MEDS: CEROVITE ADV FORMULA TAB PO SCH (08:23)
[2020-09-29] MEDS: allopurinoL 300 MG TAB PO SCH (08:23)
[2020-09-29] MEDS: ASCORBIC ACID 500 MG TAB PO SCH (08:23)
[2020-09-29] MEDS: ADVANCED PROBIOTIC 1250 MG CAPSULE PO SCH ×2 (08:24→21:59)
[2020-09-29] MEDS: FERROUS SULFATE 325 MG TAB PO SCH ×2 (08:24→21:55)
[2020-09-29] MEDS: PARoxetine HCL 20 MG TAB PO SCH (08:24)
[2020-09-29] MEDS: ASPIRIN 81 MG ECTAB PO SCH (08:24)
[2020-09-29] MEDS: INSULIN ASPART 100 UNITS/ML 3 ML PEN SC SCH ×4 (08:29→21:57)
[2020-09-29] MEDS: INSULIN GLARGINE SOLOSTAR 100 UNITS/ML 3 ML PEN SC SCH (08:31)
[2020-09-29] MEDS: OMEGA-3 (PURIFIED FISH OIL) 1 GM CAP PO SCH (12:44)
[2020-09-29 14:55] LABS: Partial Thromboplastin Ratio 1.9
[2020-09-29 14:58] LABS: Partial Thromboplastin Time 52.1 Seconds (21.0-31.0)
[2020-09-29] MEDS: WARFARIN SOD 4 MG TAB PO SCH (15:40)
[2020-09-29] MEDS: HEPARIN SODIUM/DEXTROSE 25,000 UNITS/500 ML BAG IV SCH ×2 (15:41→17:32)
[2020-09-29] MEDS: ROSUVASTATIN CALCIUM 20 MG TAB PO SCH (21:54)
--- NOTE | 2020-09-29 21:54 | Hospitalist Progress Note ---
Date of Service delayed entry date of service note below September 29, 2020 Assessment & Plan (1) Acute CVA (cerebrovascular accident): Acute stroke ( MRI/MRA of brain-large left temporoparietal CVA /left MCA infraction) and received TPA on admission 09/29/2020 stable overall dysarthria, R sided weakness improving continue to monitor Confusion/metabolic encephalopathy on admission -due to acute CVA , resolved (2) S/P AVR (aortic valve replacement): status post mechanical aortic valve replacement in Paroxysmal Atrial Fibrillation -hx of aortic arch aneurysm, status post mechanical aortic valve replacement in at [facility] - therefor the ideal INR would be between 2.5 to 3.5 -patient had been on Coumadin and had problems with maintaining adequate INR levels with a July 2020 hospital admission to [facility] when he had supratherapeutic INR and associated GI bleed -continue pantoprazole and oral iron supplements INR 2.4 neurologic deficits improving continue coumadin + heparin bridge Hypertension - stable overall -on lisinopril and metoprolol Hyperlipidemia -LDL 33 ,with in goal, ont home dose of statin Type 2 diabetes mellitus without jail current use of insulin -holding off patient's home medications -sliding scale insulin while in the hospital at this time Admission and Anticipated Discharge Date Admission Date: September 11, 2020 Subjective ff up for acute CVA, etc seen resting in chair, having lunch oriented x 3, very pleasant, in good spirits states he feels much better overall states his speech is much improved, also right side is improving denies headache, BOV, new focal neurologic deficits no chest pain, palpitations, dizziness no bleeding no other symptoms Review of Systems Review of Systems: All systems reviewed & are unremarkable except as noted in Subjective Physical Exam Physical Exam: General- oriented x 3, not in distress, speaks in sentences with no effort or accessory muscle use Eyes- anicteric Neck- no JVD Lungs- clear breath sounds bilaterally, no rales/wheezes Heart- normal rate, regular rhythm; no murmurs Abdomen- normal bowel sounds, nondistended, soft, nontender Extremities- no pretibial edema, no calf tenderness Neuro- alert, oriented x 3; (+) dyasthria, RLE 4/5 motor strength, otherwise no gross focal neurologic deficits Skin- warm & dry Results & Data Results & Data ([facility]) Vital Signs (Past 12 Hours) Vital Signs Temp Pulse Pulse Resp BP Pulse Ox 09/29/20 19:18 36.5 C 76 18 145/74 H 92 09/29/20 17:00 71 09/29/20 15:09 36.5 C 71 18 122/71 95 09/29/20 11:40 36.9 C 71 18 127/72 95 Laboratory Results Laboratory Results - last 24 hr 09/29/20 09/29/20 09/29/20 06:55 06:55 06:55 WBC 6.81 RBC 3.62 L Hgb 11.8 L Hct 35.9 L MCV 99.2 MCH 32.6 MCHC 32.9 RDW Std Deviation 50.5 H RDW Coeff of Chadd 14.1 Plt Count 166 MPV 10.4 Immature Gran % (Auto) 0.7 Neut % (Auto) 60.6 Lymph % (Auto) 18.1 Yell % (Auto) 14.0 Eos % (Auto) 6.2 Baso % (Auto) 0.4 Neut # (Auto) 4.13 Lymph # (Auto) 1.23 Yell # (Auto) 0.95 H Eos # (Auto) 0.42 Baso # (Auto) 0.03 Immature Gran # (Auto) 0.05 H PT 24.0 H INR 2.4 H APTT 112.7 H* PTT Ratio 4.0 Sodium 136 Potassium 4.1 Chloride 101 Carbon Dioxide 27 Anion Gap 8.0 BUN 29 H Creatinine 1.36 Est Cr Clr Drug Dosing 57.4 Est GFR ( Amer) 57.0 Est GFR (Non-Af Amer) 49.1 BUN/Creatinine Ratio 21.2 H Glucose 211 H POC Glucose Calcium 9.3 Total Bilirubin 0.4 AST 20 ALT 22 Alkaline Phosphatase 66 Total Protein 7.5 Albumin 3.2 L Globulin 4.3 H Albumin/Globulin Ratio 0.7 L 09/29/20 09/29/20 09/29/20 07:39 11:44 14:13 WBC RBC Hgb Hct MCV MCH MCHC RDW Std Deviation RDW Coeff of Chadd Plt Count MPV Immature Gran % (Auto) Neut % (Auto) Lymph % (Auto) Yell % (Auto) Eos % (Auto) Baso % (Auto) Neut # (Auto) Lymph # (Auto) Yell # (Auto) Eos # (Auto) Baso # (Auto) Immature Gran # (Auto) PT INR APTT 52.1 H* PTT Ratio 1.9 Sodium Potassium Chloride Carbon Dioxide Anion Gap BUN Creatinine Est Cr Clr Drug Dosing Est GFR ( Amer) Est GFR (Non-Af Amer) BUN/Creatinine Ratio Glucose POC Glucose 235 H 253 H Calcium Total Bilirubin AST ALT Alkaline Phosphatase Total Protein Albumin Globulin Albumin/Globulin Ratio 09/29/20 09/29/20 16:40 20:07 WBC RBC Hgb Hct MCV MCH MCHC RDW Std Deviation RDW Coeff of Chadd Plt Count MPV Immature Gran % (Auto) Neut % (Auto) Lymph % (Auto) Yell % (Auto) Eos % (Auto) Baso % (Auto) Neut # (Auto) Lymph # (Auto) Yell # (Auto) Eos # (Auto) Baso # (Auto) Immature Gran # (Auto) PT INR APTT PTT Ratio Sodium Potassium Chloride Carbon Dioxide Anion Gap BUN Creatinine Est Cr Clr Drug Dosing Est GFR ( Amer) Est GFR (Non-Af Amer) BUN/Creatinine Ratio Glucose POC Glucose 169 H 212 H Calcium Total Bilirubin AST ALT Alkaline Phosphatase Total Protein Albumin Globulin Albumin/Globulin Ratio
[2020-09-29] MEDS: traZODone HCL 50 MG TAB PO SCH (21:55)
[2020-09-29] MEDS: FOLIC ACID 1 MG TAB PO SCH (21:57)
[2020-09-29] MEDS: PANTOprazole 40 MG TAB PO SCH (21:59)
[2020-09-29] MEDS: lisinopril 2.5 MG TAB PO SCH (22:00)
[2020-09-29] MEDS: CHOLECALCIFEROL 1,000 UNITS 25 MCG TAB PO SCH (22:00)
[2020-09-29] MEDS: VITAMIN B COMPLEX TAB PO SCH (22:00)
[2020-09-29] MEDS: LORazepam 1 MG TAB PO PRN (22:03)
[2020-09-30] MEDS: HEPARIN SODIUM/DEXTROSE 25,000 UNITS/500 ML BAG IV SCH (03:21)
[2020-09-30 07:32] LABS: INR 2.4 (0.9-1.1)
[2020-09-30] MEDS: VITAMIN A 25,000 UNIT CAP PO SCH (09:23)
[2020-09-30] MEDS: GABAPENTIN 100 MG CAP PO SCH ×2 (09:23→21:55)
[2020-09-30] MEDS: ADVANCED PROBIOTIC 1250 MG CAPSULE PO SCH ×2 (09:23→21:57)
[2020-09-30] MEDS: FERROUS SULFATE 325 MG TAB PO SCH ×2 (09:23→21:55)
[2020-09-30] MEDS: TAMSULOSIN HCL 0.4 MG CAP PO SCH (09:23)
[2020-09-30] MEDS: METOPROLOL SUCC 50MG EXT REL TAB PO SCH (09:23)
[2020-09-30] MEDS: PARoxetine HCL 20 MG TAB PO SCH (09:23)
[2020-09-30] MEDS: INSULIN GLARGINE SOLOSTAR 100 UNITS/ML 3 ML PEN SC SCH (09:26)
[2020-09-30] MEDS: INSULIN ASPART 100 UNITS/ML 3 ML PEN SC SCH ×4 (09:26→21:56)
[2020-09-30 09:44] LABS: Partial Thromboplastin Ratio 2.3
[2020-09-30 10:10] LABS: Partial Thromboplastin Time 62.9 Seconds (21.0-31.0)
[2020-09-30] MEDS: WARFARIN SOD 4 MG TAB PO SCH (15:26)
[2020-09-30] MEDS ORDERED: WARFARIN SOD 10 MG TAB PO ONE (16:00)
[2020-09-30] MEDS ORDERED: WARFARIN SOD 2 MG TAB PO ONE (16:00)
--- NOTE | 2020-09-30 20:53 | Hospitalist Progress Note ---
Date of Service September 30, 2020 Assessment & Plan (1) Acute CVA (cerebrovascular accident): Acute stroke ( MRI/MRA of brain-large left temporoparietal CVA /left MCA infraction) and received TPA on admission 09/30 remains stable overall dysarthria, R sided weakness improving continue to monitor Confusion/metabolic encephalopathy on admission -due to acute CVA , resolved (2) S/P AVR (aortic valve replacement): status post mechanical aortic valve replacement in Paroxysmal Atrial Fibrillation -hx of aortic arch aneurysm, status post mechanical aortic valve replacement in at [facility] - therefor the ideal INR would be between 2.5 to 3.5 -patient had been on Coumadin and had problems with maintaining adequate INR levels with a July 2020 hospital admission to [facility] when he had supratherapeutic INR and associated GI bleed -continue pantoprazole and oral iron supplements INR 2.4 neurologic deficits improving continue coumadin -increased to 10 mg + heparin bridge Hypertension -on lisinopril and metoprolol Hyperlipidemia -LDL 33 ,with in goal, ont home dose of statin 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 Seen sitting up in bed, reading a magazine, in good spirits states he continues to feel fine overall dysarthria and right-sided weakness improving denies headache, nausea vomiting, new neurologic deficits no bleeding no other symptoms Review of Systems Review of Systems: All systems reviewed & are unremarkable except as noted in Subjective Physical Exam Physical Exam: General- oriented x 3, not in distress, speaks in sentences with no effort or accessory muscle use Eyes- anicteric Neck- no JVD Lungs- clear breath sounds bilaterally Heart- normal rate, regular rhythm; no murmurs Abdomen- normal bowel sounds, nondistended, soft, nontender Extremities- no pretibial edema, no calf tenderness Neuro- alert, oriented x 3; positive dysarthria, right lower extremity 4 5 motor strength, otherwise no gross focal neurologic deficits Skin- warm & dry Results & Data Results & Data ([facility]) Vital Signs (Past 12 Hours) Vital Signs Temp Pulse Pulse Resp BP Pulse Ox 09/30/20 19:24 36.6 C 70 18 130/72 96 12/31/20 16:00 36.5 C 83 18 115/70 92 09/30/20 14:54 79 Laboratory Results Laboratory Results - last 24 hr 09/30/20 09/30/20 09/30/20 06:33 07:41 11:24 PT 24.0 H INR 2.4 H APTT 62.9 H* PTT Ratio 2.3 POC Glucose 198 H 275 H 09/30/20 09/30/20 16:30 20:34 PT INR APTT PTT Ratio POC Glucose 166 H 189 H
[2020-09-30] MEDS: LORazepam 1 MG TAB PO PRN (21:53)
[2020-09-30] MEDS: ROSUVASTATIN CALCIUM 20 MG TAB PO SCH (21:54)
[2020-09-30] MEDS: traZODone HCL 50 MG TAB PO SCH (21:54)
[2020-09-30] MEDS: FOLIC ACID 1 MG TAB PO SCH (21:55)
[2020-09-30] MEDS: PANTOprazole 40 MG TAB PO SCH (21:57)
[2020-09-30] MEDS: CHOLECALCIFEROL 1,000 UNITS 25 MCG TAB PO SCH (21:58)
[2020-09-30] MEDS: lisinopril 2.5 MG TAB PO SCH (21:58)
[2020-09-30] MEDS: VITAMIN B COMPLEX TAB PO SCH (21:58)
[2020-10-01 06:10] LABS: Partial Thromboplastin Ratio 2.3
[2020-10-01] MEDS: METOPROLOL SUCC 50MG EXT REL TAB PO SCH (08:53)
[2020-10-01] MEDS: ASCORBIC ACID 500 MG TAB PO SCH (08:53)
[2020-10-01] MEDS: PARoxetine HCL 20 MG TAB PO SCH (08:53)
[2020-10-01] MEDS: OMEGA-3 (PURIFIED FISH OIL) 1 GM CAP PO SCH (08:53)
[2020-10-01] MEDS: VITAMIN A 25,000 UNIT CAP PO SCH (08:53)
[2020-10-01] MEDS: allopurinoL 300 MG TAB PO SCH (08:53)
[2020-10-01] MEDS: ADVANCED PROBIOTIC 1250 MG CAPSULE PO SCH ×2 (08:53→20:02)
[2020-10-01] MEDS: CEROVITE ADV FORMULA TAB PO SCH (08:53)
[2020-10-01] MEDS: TAMSULOSIN HCL 0.4 MG CAP PO SCH (08:53)
[2020-10-01] MEDS: FERROUS SULFATE 325 MG TAB PO SCH ×2 (08:54→20:03)
[2020-10-01] MEDS: GABAPENTIN 100 MG CAP PO SCH ×2 (08:54→20:02)
[2020-10-01] MEDS: INSULIN GLARGINE SOLOSTAR 100 UNITS/ML 3 ML PEN SC SCH (08:57)
[2020-10-01] MEDS: INSULIN ASPART 100 UNITS/ML 3 ML PEN SC SCH ×4 (08:57→20:10)
[2020-10-01 09:13] LABS: INR 2.6 (0.9-1.1); Prothrombin Time 25.6 Seconds (9.0-12.0)
[2020-10-01] MEDS ORDERED: WARFARIN SOD 10 MG TAB PO SCH (16:00)
--- NOTE | 2020-10-01 18:10 | Hospitalist Progress Note ---
Date of Service October 01, 2020 Assessment & Plan (1) Acute CVA (cerebrovascular accident): [id number] male with history of paroxysmal atrial fibrillation, CAD, aortic valve replacement, on Coumadin, Diabetes type II, hypertension, dyslipidemia presenting with acute CVA. (1) Acute CVA (cerebrovascular accident): Acute stroke ( MRI/MRA of brain-large left temporoparietal CVA /left MCA infraction) and received TPA on admission remains stable overall dysarthria, R sided weakness improving continue to monitor Currently on Coumadin Hold off on aspirin in light of petechial hemorrhage noted on CT head, will discuss with neurologist Continue Crestor Confusion/metabolic encephalopathy on admission -due to acute CVA , resolved (2) S/P AVR (aortic valve replacement): status post mechanical aortic valve replacement in Paroxysmal Atrial Fibrillation -hx of aortic arch aneurysm, status post mechanical aortic valve replacement in at [facility] - therefor the ideal INR would be between 2.5 to 3.5 -patient had been on Coumadin and had problems with maintaining adequate INR levels with a July 2020 hospital admission to [facility] when he had supratherapeutic INR and associated GI bleed -continue pantoprazole and oral iron supplements INR 2.6 continue coumadin -increased to 10 mg Discontinue heparin bridge Hypertension -Blood pressure within goal range -on lisinopril and metoprolol Hyperlipidemia -LDL 33 ,with in goal, continue Crestor 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 Resting in bedside chair, comfortable, not in distress, in good spirits States he continues to feel fine overall Dysarthria and right-sided weakness improving No headache, dizziness, chest pain, palpitations, shortness of breath No bleeding No other symptoms Review of Systems Review of Systems: All systems reviewed & are unremarkable except as noted in Subjective Physical Exam Physical Exam: General- oriented x 3, not in distress, speaks in sentences with no effort or accessory muscle use Eyes- anicteric Neck- no JVD Lungs- clear breath sounds BL Heart- normal rate, regular rhythm; no murmurs Abdomen- normal bowel sounds, nondistended, soft, nontender Extremities- no pretibial edema, no calf tenderness Neuro- alert, oriented x 3; positive mild dysarthria, motor strength 4/5 in the right lower extremity, otherwise no new gross focal neurologic deficits Skin- warm & dry Results & Data Results & Data ([facility]) Vital Signs (Past 12 Hours) Vital Signs Temp Pulse Pulse Resp BP Pulse Ox 10/01/20 16:00 36.5 C 78 18 106/63 93 10/01/20 14:19 80 10/01/20 12:20 36.8 C 77 20 102/65 93 10/01/20 08:03 36.5 C 71 20 141/68 H 94 10/01/20 07:00 69 Laboratory Results Laboratory Results - last 24 hr 09/30/20 10/01/20 10/01/20 20:34 05:27 07:50 PT INR APTT 65.0 H* PTT Ratio 2.3 POC Glucose 189 H 193 H 10/01/20 10/01/20 10/01/20 08:30 11:52 16:37 PT 25.6 H INR 2.6 H APTT PTT Ratio POC Glucose 233 H 160 H
[2020-10-01] MEDS: FOLIC ACID 1 MG TAB PO SCH (20:02)
[2020-10-01] MEDS: PANTOprazole 40 MG TAB PO SCH (20:02)
[2020-10-01] MEDS: VITAMIN B COMPLEX TAB PO SCH (20:02)
[2020-10-01] MEDS: HYDROCODONE/ACETAMOPHEN 5/325MG TAB PO PRN (20:03)
[2020-10-01] MEDS: CHOLECALCIFEROL 1,000 UNITS 25 MCG TAB PO SCH (20:03)
[2020-10-01] MEDS: traZODone HCL 50 MG TAB PO SCH (20:03)
[2020-10-01] MEDS: ROSUVASTATIN CALCIUM 20 MG TAB PO SCH (20:03)
[2020-10-01] MEDS: lisinopril 2.5 MG TAB PO SCH (20:03)
[2020-10-02] MEDS: VITAMIN A 25,000 UNIT CAP PO SCH (08:11)
[2020-10-02] MEDS: METOPROLOL SUCC 50MG EXT REL TAB PO SCH (08:11)
[2020-10-02] MEDS: PARoxetine HCL 20 MG TAB PO SCH (08:11)
[2020-10-02] MEDS: ADVANCED PROBIOTIC 1250 MG CAPSULE PO SCH ×2 (08:11→21:00)
[2020-10-02] MEDS: INSULIN GLARGINE SOLOSTAR 100 UNITS/ML 3 ML PEN SC SCH (08:11)
[2020-10-02] MEDS: TAMSULOSIN HCL 0.4 MG CAP PO SCH (08:11)
[2020-10-02] MEDS: GABAPENTIN 100 MG CAP PO SCH ×2 (08:11→21:00)
[2020-10-02] MEDS: FERROUS SULFATE 325 MG TAB PO SCH ×2 (08:11→21:00)
[2020-10-02] MEDS: INSULIN ASPART 100 UNITS/ML 3 ML PEN SC SCH ×4 (08:12→21:11)
[2020-10-02 09:11] LABS: Basophils # (auto) 0.02 K/uL (0-0.2); Basophils % (auto) 0.3 %; Eosinophils # (auto) 0.35 K/uL (0-0.5); Hematocrit (blood only) 36.6 % (42-52); Immature Granulocytes # (auto) 0.04 K/uL (0.00-0.02); Immature Granulocytes % (auto) 0.6 %; Lymphocytes % (auto) 14.3 %; Mean Corpuscular Hemoglobin 32.6 pg (25-34); Mean Corpuscular Hgb Conc 32.8 g/dL (32-36); Mean Corpuscular Volume 99.5 fL (80-100); Mean Platelet Volume 10.7 fL (7.4-10.4); Monocytes # (auto) 0.59 K/uL (0.11-0.59); Monocytes % (auto) 8.4 %; Neutrophils # (auto) 4.99 K/uL (1.4-6.5); Neutrophils % (auto) 71.4 %; Platelet Count 165 K/uL (130-400); RDW Coefficient of Variation 14.2 % (11.5-14.5); RDW Standard Deviation 51.2 fL (36.4-46.3); Red Blood Count 3.68 M/uL (4.7-6.1); White Blood Count 6.99 K/uL (4.8-10.8)
[2020-10-02 09:20] LABS: INR 3.1 (0.9-1.1); Prothrombin Time 30.7 Seconds (9.0-12.0)
--- NOTE | 2020-10-02 17:18 | Hospitalist Progress Note ---
Date of Service October 02, 2020 Assessment & Plan (1) Acute CVA (cerebrovascular accident): [id number] male with history of paroxysmal atrial fibrillation, CAD, aortic valve replacement, on Coumadin, Diabetes type II, hypertension, dyslipidemia presenting with acute CVA. (1) Acute CVA (cerebrovascular accident): Acute stroke ( MRI/MRA of brain-large left temporoparietal CVA /left MCA infraction) and received TPA on admission remains stable overall dysarthria, R sided weakness improving continue to monitor Currently on Coumadin discussed with Neuro, ASA not recommended Confusion/metabolic encephalopathy on admission -due to acute CVA , resolved (2) S/P AVR (aortic valve replacement): status post mechanical aortic valve replacement in Paroxysmal Atrial Fibrillation -hx of aortic arch aneurysm, status post mechanical aortic valve replacement in at [facility] - therefor the ideal INR would be between 2.5 to 3.5 -patient had been on Coumadin and had problems with maintaining adequate INR levels with a July 2020 hospital admission to [facility] when he had supratherapeutic INR and associated GI bleed -continue pantoprazole and oral iron supplements INR 23.1 continue coumadin 8mg Discontinue heparin bridge Hypertension -Blood pressure within goal range -on lisinopril and metoprolol Hyperlipidemia -LDL 33 ,with in goal, continue Crestor Type 2 diabetes mellitus without longterm current use of insulin -a1c 6.1 -holding off patient's home medications -sliding scale insulin while in the hospital at this time Disposition Transition to [facility] when accepted Admission and Anticipated Discharge Date Admission Date: September 11, 2020 Subjective ff up for acute cva seen resting in bedside chair, in good spirits states dysarthria and r sided weakness continue to improve ambulated in the hallways with a walker, with no problems no bleeding no other symptoms Review of Systems Review of Systems: All systems reviewed & are unremarkable except as noted in Subjective Physical Exam Physical Exam: General- oriented x 3, not in distress, speaks in sentences with no effort or accessory muscle use Eyes- anicteric Neck- no JVD Lungs- clear BS BL Heart- normal rate, regular rhythm; no murmurs Abdomen- normal bowel sounds, nondistended, soft, nontender Extremities- no pretibial edema, no calf tenderness Neuro- alert, oriented x 3; (+) dysarthria, RLE 4/5 MS, no other new gross focal neurologic deficits Skin- warm & dry Results & Data Results & Data ([facility]) Vital Signs (Past 12 Hours) Vital Signs Temp Pulse Pulse Resp BP Pulse Ox 10/02/20 14:55 36.7 C 74 20 99/67 L 96 10/02/20 11:37 36.4 C L 77 20 151/71 H 93 10/02/20 07:12 72 10/02/20 06:23 36.4 C L 81 18 134/72 94 Laboratory Results Laboratory Results - last 24 hr 10/02/20 10/02/20 10/02/20 07:22 09:00 09:00 WBC 6.99 RBC 3.68 L Hgb 12.0 L Hct 36.6 L MCV 99.5 MCH 32.6 MCHC 32.8 RDW Std Deviation 51.2 H RDW Coeff of Chadd 14.2 Plt Count 165 MPV 10.7 H Immature Gran % (Auto) 0.6 Neut % (Auto) 71.4 Lymph % (Auto) 14.3 [place] % (Auto) 8.4 Eos % (Auto) 5.0 Baso % (Auto) 0.3 Neut # (Auto) 4.99 Lymph # (Auto) 1.00 L [place] # (Auto) 0.59 Eos # (Auto) 0.35 Baso # (Auto) 0.02 Immature Gran # (Auto) 0.04 H PT 30.7 H INR 3.1 H POC Glucose 179 H 10/02/20 10/02/20 10/02/20 11:21 16:35 20:19 WBC RBC Hgb Hct MCV MCH MCHC RDW Std Deviation RDW Coeff of Chadd Plt Count MPV Immature Gran % (Auto) Neut % (Auto) Lymph % (Auto) [place] % (Auto) Eos % (Auto) Baso % (Auto) Neut # (Auto) Lymph # (Auto) [place] # (Auto) Eos # (Auto) Baso # (Auto) Immature Gran # (Auto) PT INR POC Glucose 263 H 167 H 247 H
[2020-10-02] MEDS: WARFARIN SOD 4 MG TAB PO SCH (17:21)
[2020-10-02] MEDS: HYDROCODONE/ACETAMOPHEN 5/325MG TAB PO PRN (19:51)
[2020-10-02] MEDS: ROSUVASTATIN CALCIUM 20 MG TAB PO SCH (20:59)
[2020-10-02] MEDS: FOLIC ACID 1 MG TAB PO SCH (21:00)
[2020-10-02] MEDS: PANTOprazole 40 MG TAB PO SCH (21:00)
[2020-10-02] MEDS: traZODone HCL 50 MG TAB PO SCH (21:00)
[2020-10-02] MEDS: lisinopril 2.5 MG TAB PO SCH (21:01)
[2020-10-02] MEDS: CHOLECALCIFEROL 1,000 UNITS 25 MCG TAB PO SCH (21:01)
[2020-10-02] MEDS: VITAMIN B COMPLEX TAB PO SCH (21:01)
[2020-10-03] MEDS: LORazepam 1 MG TAB PO PRN ×2 (00:02→22:54)
[2020-10-03 06:07] LABS: INR 3.4 (0.9-1.1); Prothrombin Time 33.5 Seconds (9.0-12.0)
[2020-10-03] MEDS: ADVANCED PROBIOTIC 1250 MG CAPSULE PO SCH ×2 (08:01→20:52)
[2020-10-03] MEDS: GABAPENTIN 100 MG CAP PO SCH ×2 (08:02→20:51)
[2020-10-03] MEDS: METOPROLOL SUCC 50MG EXT REL TAB PO SCH (08:02)
[2020-10-03] MEDS: CEROVITE ADV FORMULA TAB PO SCH (08:02)
[2020-10-03] MEDS: allopurinoL 300 MG TAB PO SCH (08:02)
[2020-10-03] MEDS: OMEGA-3 (PURIFIED FISH OIL) 1 GM CAP PO SCH (08:02)
[2020-10-03] MEDS: FERROUS SULFATE 325 MG TAB PO SCH ×2 (08:02→20:50)
[2020-10-03] MEDS: VITAMIN A 25,000 UNIT CAP PO SCH (08:02)
[2020-10-03] MEDS: ASCORBIC ACID 500 MG TAB PO SCH (08:02)
[2020-10-03] MEDS: PARoxetine HCL 20 MG TAB PO SCH (08:02)
[2020-10-03] MEDS: TAMSULOSIN HCL 0.4 MG CAP PO SCH (08:02)
[2020-10-03] MEDS: INSULIN ASPART 100 UNITS/ML 3 ML PEN SC SCH ×4 (08:08→20:47)
[2020-10-03] MEDS: INSULIN GLARGINE SOLOSTAR 100 UNITS/ML 3 ML PEN SC SCH (08:08)
[2020-10-03] MEDS: WARFARIN SOD 4 MG TAB PO SCH (15:42)
--- NOTE | 2020-10-03 17:38 | Hospitalist Progress Note ---
Date of Service October 03, 2020 Assessment & Plan (1) Acute CVA (cerebrovascular accident): [id number] male with history of paroxysmal atrial fibrillation, CAD, aortic valve replacement, on Coumadin, Diabetes type II, hypertension, dyslipidemia presenting with acute CVA. (1) Acute CVA (cerebrovascular accident): Acute stroke ( MRI/MRA of brain-large left temporoparietal CVA /left MCA infraction) and received TPA on admission remains stable overall dysarthria, R sided weakness continues to improve continue to monitor Currently on Coumadin discussed with Neuro, ASA not recommended Confusion/metabolic encephalopathy on admission -due to acute CVA , resolved (2) S/P AVR (aortic valve replacement): status post mechanical aortic valve replacement in Paroxysmal Atrial Fibrillation -hx of aortic arch aneurysm, status post mechanical aortic valve replacement in at [facility] - therefor the ideal INR would be between 2.5 to 3.5 -patient had been on Coumadin and had problems with maintaining adequate INR levels with a July 2020 hospital admission to [facility] when he had supratherapeutic INR and associated GI bleed -continue pantoprazole and oral iron supplements INR 3.4 continue coumadin 8mg Discontinued heparin bridge Hypertension -Blood pressure within goal range -on lisinopril and metoprolol Hyperlipidemia -LDL 33 ,with in goal, continue Crestor Type 2 diabetes mellitus without mcc current use of insulin -a1c 6.1 -holding off patient's home medications -sliding scale insulin while in the hospital at this time Disposition Transition to [facility] when accepted Admission and Anticipated Discharge Date Admission Date: September 11, 2020 Subjective Follow-up for acute CVA, etc. Seen resting in bed, comfortable, not in distress Pleasant, cheerful, states he feels fine overall No new symptoms Denies headache, dizziness, chest pain, shortness of breath, palpitations No bleeding No other symptoms Review of Systems Review of Systems: All systems reviewed & are unremarkable except as noted in Subjective Physical Exam Physical Exam: General- oriented x 3, not in distress, speaks in sentences with no effort or accessory muscle use Eyes- anicteric Neck- no JVD Lungs- clear BS BL Heart- normal rate, regular rhythm; no murmurs Abdomen- normal bowel sounds, nondistended, soft, nontender Extremities- no pretibial edema, no calf tenderness Neuro- alert, oriented x 3; positive dysarthria, motor strength right lower extremity 4/5, otherwise no gross focal neurologic deficits Skin- warm & dry Results & Data Results & Data ([facility]) Vital Signs (Past 12 Hours) Vital Signs Temp Pulse Resp BP Pulse Ox 10/03/20 15:16 36.5 C 78 20 113/68 92 10/03/20 07:14 36.5 C 76 18 159/70 H 91 Laboratory Results Laboratory Results - last 24 hr 10/02/20 10/03/20 10/03/20 20:19 05:26 07:12 PT 33.5 H INR 3.4 H POC Glucose 247 H 182 H 10/03/20 10/03/20 11:53 16:44 PT INR POC Glucose 276 H 209 H
[2020-10-03] MEDS: BACITRACIN OINT 15 GM TUBE EXT SCH (17:53)
[2020-10-03] MEDS: HYDROCODONE/ACETAMOPHEN 5/325MG TAB PO PRN (20:46)
[2020-10-03] MEDS: FOLIC ACID 1 MG TAB PO SCH (20:49)
[2020-10-03] MEDS: PANTOprazole 40 MG TAB PO SCH (20:50)
[2020-10-03] MEDS: traZODone HCL 50 MG TAB PO SCH (20:50)
[2020-10-03] MEDS: lisinopril 2.5 MG TAB PO SCH (20:51)
[2020-10-03] MEDS: VITAMIN B COMPLEX TAB PO SCH (20:52)
[2020-10-03] MEDS: ROSUVASTATIN CALCIUM 20 MG TAB PO SCH (20:52)
[2020-10-03] MEDS: CHOLECALCIFEROL 1,000 UNITS 25 MCG TAB PO SCH (20:52)
[2020-10-04 07:51] LABS: INR 3.9 (0.9-1.1); Prothrombin Time 38.2 Seconds (9.0-12.0)
[2020-10-04] MEDS: INSULIN ASPART 100 UNITS/ML 3 ML PEN SC SCH ×4 (08:07→20:28)
[2020-10-04] MEDS: VITAMIN A 25,000 UNIT CAP PO SCH (08:08)
[2020-10-04] MEDS: PARoxetine HCL 20 MG TAB PO SCH (08:08)
[2020-10-04] MEDS: GABAPENTIN 100 MG CAP PO SCH ×2 (08:09→20:21)
[2020-10-04] MEDS: TAMSULOSIN HCL 0.4 MG CAP PO SCH (08:09)
[2020-10-04] MEDS: ADVANCED PROBIOTIC 1250 MG CAPSULE PO SCH ×2 (08:09→20:23)
[2020-10-04] MEDS: FERROUS SULFATE 325 MG TAB PO SCH ×2 (08:09→20:21)
[2020-10-04] MEDS: INSULIN GLARGINE SOLOSTAR 100 UNITS/ML 3 ML PEN SC SCH (08:10)
[2020-10-04] MEDS: METOPROLOL SUCC 50MG EXT REL TAB PO SCH (08:10)
[2020-10-04] MEDS: BACITRACIN OINT 15 GM TUBE EXT SCH ×2 (08:11→20:18)
[2020-10-04] MEDS: ROSUVASTATIN CALCIUM 20 MG TAB PO SCH (20:19)
[2020-10-04] MEDS: traZODone HCL 50 MG TAB PO SCH (20:20)
[2020-10-04] MEDS: PANTOprazole 40 MG TAB PO SCH (20:22)
[2020-10-04] MEDS: FOLIC ACID 1 MG TAB PO SCH (20:22)
[2020-10-04] MEDS: lisinopril 2.5 MG TAB PO SCH (20:24)
[2020-10-04] MEDS: VITAMIN B COMPLEX TAB PO SCH (20:25)
[2020-10-04] MEDS: CHOLECALCIFEROL 1,000 UNITS 25 MCG TAB PO SCH (20:25)
--- NOTE | 2020-10-04 20:35 | Hospitalist Progress Note ---
Date of Service October 04, 2020 Assessment & Plan (1) Acute CVA (cerebrovascular accident): [id number] male with history of paroxysmal atrial fibrillation, CAD, aortic valve replacement, on Coumadin, Diabetes type II, hypertension, dyslipidemia presenting with acute CVA. (1) Acute CVA (cerebrovascular accident): Acute stroke ( MRI/MRA of brain-large left temporoparietal CVA /left MCA infraction) and received TPA on admission remains stable overall dysarthria, R sided weakness continues to improve continue to monitor Currently on Coumadin discussed with Neuro, ASA not recommended Confusion/metabolic encephalopathy on admission -due to acute CVA , resolved (2) S/P AVR (aortic valve replacement): status post mechanical aortic valve replacement in Paroxysmal Atrial Fibrillation -hx of aortic arch aneurysm, status post mechanical aortic valve replacement in at [facility] - therefor the ideal INR would be between 2.5 to 3.5 -patient had been on Coumadin and had problems with maintaining adequate INR levels with a July 2020 hospital admission to [facility] when he had supratherapeutic INR and associated GI bleed -continue pantoprazole and oral iron supplements INR 3.9 Hold usual coumadin 8mg Completed heparin bridge Hypertension -Blood pressure within goal range -on lisinopril and metoprolol Hyperlipidemia -LDL 33 ,with in goal, continue Crestor 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 Sitting up in bed, comfortable, not in distress Dysarthria and right-sided weakness improving No bleeding No other symptoms Review of Systems Review of Systems: All systems reviewed & are unremarkable except as noted in Subjective Physical Exam Physical Exam: General- oriented x 3, not in distress, speaks in sentences with no effort or accessory muscle use Eyes- anicteric Neck- no JVD Lungs- clear breath sounds bilaterally Heart- normal rate, regular rhythm; no murmurs Abdomen- normal bowel sounds, nondistended, soft, nontender Extremities- no pretibial edema, no calf tenderness Neuro- alert, oriented x 3; positive dysarthria, right lower extremity 4/5 motor strength, no gross focal neurologic deficits Skin- warm & dry Results & Data Results & Data ([facility]) Vital Signs (Past 12 Hours) Vital Signs Temp Pulse Resp BP Pulse Ox 10/04/20 15:58 35.9 C L 71 20 113/70 94 Laboratory Results Laboratory Results - last 24 hr 10/03/20 10/04/20 10/04/20 20:45 07:14 07:44 PT 38.2 H INR 3.9 H POC Glucose 202 H 198 H 10/04/20 10/04/20 10/04/20 11:23 17:07 20:04 PT INR POC Glucose 198 H 163 H 244 H
[2020-10-04] MEDS: LORazepam 1 MG TAB PO PRN (22:24)
[2020-10-05 07:32] LABS: INR 3.1 (0.9-1.1); Prothrombin Time 31.2 Seconds (9.0-12.0)
[2020-10-05] MEDS: ADVANCED PROBIOTIC 1250 MG CAPSULE PO SCH ×2 (08:05→20:31)
[2020-10-05] MEDS: ASCORBIC ACID 500 MG TAB PO SCH (08:06)
[2020-10-05] MEDS: CEROVITE ADV FORMULA TAB PO SCH (08:06)
[2020-10-05] MEDS: allopurinoL 300 MG TAB PO SCH (08:07)
[2020-10-05] MEDS: TAMSULOSIN HCL 0.4 MG CAP PO SCH (08:07)
[2020-10-05] MEDS: VITAMIN A 25,000 UNIT CAP PO SCH (08:07)
[2020-10-05] MEDS: GABAPENTIN 100 MG CAP PO SCH ×2 (08:07→20:31)
[2020-10-05] MEDS: METOPROLOL SUCC 50MG EXT REL TAB PO SCH (08:09)
[2020-10-05] MEDS: PARoxetine HCL 20 MG TAB PO SCH (08:09)
[2020-10-05] MEDS: INSULIN ASPART 100 UNITS/ML 3 ML PEN SC SCH ×4 (08:10→20:37)
[2020-10-05] MEDS: BACITRACIN OINT 15 GM TUBE EXT SCH ×2 (08:16→20:26)
[2020-10-05] MEDS: FERROUS SULFATE 325 MG TAB PO SCH ×2 (08:20→20:30)
[2020-10-05] MEDS: INSULIN GLARGINE SOLOSTAR 100 UNITS/ML 3 ML PEN SC SCH (08:20)
[2020-10-05] MEDS: OMEGA-3 (PURIFIED FISH OIL) 1 GM CAP PO SCH (08:21)
[2020-10-05] MEDS ORDERED: PHARMACY GLYCEMIC MGMT CONSULT PRN (09:57)
--- NOTE | 2020-10-05 12:08 | Pharmacy Report ---
Pharmacy Glycemic Short Note 2 - Date of Service October 05, 2020 - Glycemic Short BSG Results (Last 24 hours): 10/04/20 10/04/20 10/05/20 17:07 20:04 07:32 POC Glucose 163 H 244 H 196 H 10/05/20 11:27 POC Glucose 234 H OUTPATIENT ANTIDIABETIC REGIMEN: * Trulicity and novolog scale * A1c: 6.1% 09/12/20 ASSESSMENT: * Patient admitted since mid-August, experiencing some hyperglycemia * Fasting BSGs have been ~180-200. Will increase basal insulin by ~17% starting tomorrow morning * Post prandials have also been elevated, will tighten CF/CR as well. Patient is tolerating a diet. PLAN FOR INPATIENT GLYCEMIC CONTROL: * Hold outpatient oral diabetes medications * Basal insulin * Lantus 36 units SQ qam starting tomorrow (increase) * Bolus insulin * NovoLog per scale ACHS or Q6hrs while NPO * Goal Range: Low 110 mg/dL - High 140 mg/dL * Correction Factor: 18 mg/dL/unit * Nutritional / Prandial insulin per carb ratio of 1 unit per 6 grams CHO consumed
[2020-10-05] MEDS: CHOLECALCIFEROL 1,000 UNITS 25 MCG TAB PO SCH (20:29)
[2020-10-05] MEDS: FOLIC ACID 1 MG TAB PO SCH (20:30)
[2020-10-05] MEDS: VITAMIN B COMPLEX TAB PO SCH (20:30)
[2020-10-05] MEDS: PANTOprazole 40 MG TAB PO SCH (20:30)
[2020-10-05] MEDS: ROSUVASTATIN CALCIUM 20 MG TAB PO SCH (20:30)
[2020-10-05] MEDS: traZODone HCL 50 MG TAB PO SCH (20:31)
[2020-10-05] MEDS: lisinopril 2.5 MG TAB PO SCH (20:32)
[2020-10-05] MEDS: HYDROCODONE/ACETAMOPHEN 5/325MG TAB PO PRN (20:34)
--- NOTE | 2020-10-05 21:36 | Hospitalist Progress Note ---
Date of Service delayed entry date of service below October 05, 2020 Assessment & Plan (1) Acute CVA (cerebrovascular accident): 26.499-[id number] male with history of paroxysmal atrial fibrillation, CAD, aortic valve replacement, on Coumadin, Diabetes type II, hypertension, dyslipidemia presenting with acute CVA. (1) Acute CVA (cerebrovascular accident): Acute stroke ( MRI/MRA of brain-large left temporoparietal CVA /left MCA infraction) and received TPA on admission remains stable overall dysarthria, R sided weakness improving continue to monitor Currently on Coumadin discussed with Neuro, ASA not recommended Confusion/metabolic encephalopathy on admission -due to acute CVA , resolved (2) S/P AVR (aortic valve replacement): status post mechanical aortic valve replacement in Paroxysmal Atrial Fibrillation -hx of aortic arch aneurysm, status post mechanical aortic valve replacement in at [facility] - therefor the ideal INR would be between 2.5 to 3.5 -patient had been on Coumadin and had problems with maintaining adequate INR levels with a July 2020 hospital admission to [facility] when he had supratherapeutic INR and associated GI bleed -continue pantoprazole and oral iron supplements INR 3.1 usual coumadin 8mg ordered Completed heparin bridge monitor INR, heparin bridge if with INR < 2.5 Hypertension -Blood pressure within goal range -on lisinopril and metoprolol Hyperlipidemia -LDL 33 ,with in goal, continue Crestor 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 -a1c 6.1 -holding off patient's home medications -sliding scale insulin while in the hospital at this time Disposition Transition to [facility] when accepted Admission and Anticipated Discharge Date Admission Date: September 11, 2020 Subjective ff up for acute CVA, etc seen resting in bed, comfortable, in good spirits states he feels fine overall no new focal neuro deficits denies chest pain, dyspnea, headache, etc no other symptoms Review of Systems Review of Systems: All systems reviewed & are unremarkable except as noted in Subjective Physical Exam Physical Exam: General- oriented x 3, not in distress, speaks in sentences with no effort or accessory muscle use Eyes- anicteric Neck- no JVD Lungs- clear BS BL Heart- normal rate, regular rhythm; no murmurs Abdomen- normal bowel sounds, nondistended, soft, nontender Extremities- no pretibial edema, no calf tenderness Neuro- alert, oriented x 3; (+) dysarthria, motor strength 4/5 RLE no new gross focal neurologic deficits Skin- warm & dry Results & Data Results & Data ([facility]) Vital Signs (Past 12 Hours) Vital Signs Temp Pulse Resp BP Pulse Ox 10/05/20 16:04 36.6 C 82 18 108/64 94 Laboratory Results all noted and reviewed
[2020-10-05] MEDS ORDERED: WARFARIN SOD 4 MG TAB PO SCH (23:00)
[2020-10-06] MEDS: TAMSULOSIN HCL 0.4 MG CAP PO SCH (07:41)
[2020-10-06] MEDS: GABAPENTIN 100 MG CAP PO SCH (07:42)
[2020-10-06] MEDS: VITAMIN A 25,000 UNIT CAP PO SCH (07:42)
[2020-10-06] MEDS: ADVANCED PROBIOTIC 1250 MG CAPSULE PO SCH (07:43)
[2020-10-06] MEDS: PARoxetine HCL 20 MG TAB PO SCH (07:44)
[2020-10-06] MEDS: BACITRACIN OINT 15 GM TUBE EXT SCH (07:44)
[2020-10-06] MEDS: FERROUS SULFATE 325 MG TAB PO SCH (07:45)
--- NOTE | 2020-10-06 07:45 | Hospitalist Progress Note ---
Date of Service October 06, 2020 Assessment & Plan (1) Acute CVA (cerebrovascular accident): 80-year-old male with history of paroxysmal atrial fibrillation, CAD, aortic valve replacement, on Coumadin, Diabetes type II, hypertension, dyslipidemia presenting with acute CVA. (1) Acute CVA (cerebrovascular accident): Acute stroke ( MRI/MRA of brain-large left temporoparietal CVA /left MCA infraction) and received TPA on admission remains stable overall, clinically improving dysarthria, R sided weakness improving continue to monitor Currently on Coumadin discussed with Neuro, ASA not recommended Follow up with neurology in 4-6 weeks after discharge Confusion/metabolic encephalopathy on admission -due to acute CVA , resolved (2) S/P AVR (aortic valve replacement): status post mechanical aortic valve replacement in Paroxysmal Atrial Fibrillation -hx of aortic arch aneurysm, status post mechanical aortic valve replacement in at [facility] - therefore the ideal INR would be between 2.5 to 3.5 -patient had been on Coumadin and had problems with maintaining adequate INR levels with a July 2020 hospital admission to 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 Pt feeling well, +dysarthria, able to speak slowly, usually can say words cor rectly if they are not complicated words. Moving extremities better. Pt reports he feels he is doing better every day. No headache, no chest pain, shortness of breath, abd. pain, nausea or vomiting. Review of Systems Review of Systems: All systems reviewed & are unremarkable except as noted in HPI & below Constitutional: + weakness (rt sided weakness ); no fever and no fatigue Cardiovascular: no chest pain, no palpitations and no edema Gastrointestinal: no abdominal pain, no nausea and no vomiting Neurologic: + localized weakness (R sided weakness ) and + abnormal speech (dysarthria , ); no tremor(s), no abnormal movements, no headache(s) and no confusion Physical Exam Physical Exam: Constitutional: WD/WN, vitals as above Eyes: PERRL, EOMI, conjunctivae normal, anicteric sclerae + anicteric sclerae and reactive pupils ENMT: external ear and nose normal, oropharynx normal Neck: trachea midline, no thyromegaly Respiratory: normal respiratory effort, lungs clear to auscultation Cardiovascular: RRR, + mechan.valve sound, no murmur, no edema Gastrointestinal (Abdomen): normal bowel sounds, soft, nontender Skin: no rashes, warm and dry Neurologic: + focal motor deficit (rt sided weakness ) , able to move RUE but has significant sensory loss in RUE, also able to move RLE, awake Speech / Cognition: + abnormal speech (dysarthria ) and + expressive aphasia Motor/Sensory: no tremor, and no asterixis Psychiatric: A+Ox3, euthymic affect Results & Data Results & Data ([facility]) Vital Signs (Past 12 Hours) Vital Signs Temp Pulse Resp BP Pulse Ox 10/05/20 23:18 37.1 C 65 18 106/60 94 Medications Administered Current Inpatient Medications Hydrocodone Bitart/Acetaminophen (Hydrocodone/Acetamophen 5/325mg Tab) 1 tab PO Q8H PRN PRN Reason: Pain Stop: 10/08/20 16:20 Last Admin: 10/05/20 20:34 Dose: 1 tab Documented by: Allopurinol (Allopurinol 300 Mg Tab) 300 mg PO Q2D COUNT INCLUDES THE [facility] Stop: 10/13/20 08:59 Last Admin: 10/05/20 08:07 Dose: 300 mg Documented by: Ascorbic Acid (Ascorbic Acid 500 Mg Tab) 500 mg PO Q2D@0900 COUNT INCLUDES THE [facility] Stop: 10/13/20 08:59 Last Admin: 10/05/20 08:06 Dose: 500 mg Documented by: Aspirin (Aspirin 81 Mg Ectab) 81 mg PO DAILY COUNT INCLUDES THE [facility] Stop: 10/28/20 08:59 Last Admin: 09/29/20 08:24 Dose: 81 mg Documented by: Bacitracin (Bacitracin Oint 15 Gm Tube) 1 appln EXT BID COUNT INCLUDES THE [facility] Stop: 11/02/20 20:59 Last Admin: 10/06/20 07:44 Dose: 1 appln Documented by: Clobetasol Propionate (Clobetasol Propionate 0.05% Oint 15 Gm Tube) 1 appln EXT BID PRN PRN Reason: psoriasis Stop: 10/17/20 15:48 Last Admin: 09/24/20 08:32 Dose: 1 appln Documented by: Dextrose (Dextrose 50% 50 Ml Syringe) 25 - 50 ml IV UD PRN; Protocol PRN Reason: Hypoglycemia Protocol Stop: 10/20/20 13:43 Ferrous Sulfate (Ferrous Sulfate 325 Mg Tab) 325 mg PO BID COUNT INCLUDES THE [facility] Stop: 10/12/20 20:59 Last Admin: 10/06/20 07:45 Dose: 325 mg Documented by: Fish Oil ([place]-3 (Purified Fish Oil) 1 Gm Cap) 1 gm PO Q2D ELK[place] Stop: 10/13/20 08:59 Last Admin: 10/05/20 08:21 Dose: 1 gm Documented by: Folic Acid (Folic Acid 1 Mg Tab) 1 mg PO PM [place] Stop: 10/12/20 20:59 Last Admin: 10/05/20 20:30 Dose: 1 mg Documented by: Gabapentin (Gabapentin 100 Mg Cap) 100 mg PO BID COUNT INCLUDES THE [facility] Stop: 10/29/20 08:59 Last Admin: 10/06/20 07:42 Dose: 100 mg Documented by: Glucagon (Glucagon For Inj 1 Mg Vial) 1 mg SQ UD PRN; Protocol PRN Reason: Hypoglycemia Protocol Stop: 10/20/20 13:43 Glucose (Glucose 10 Tabs/Tube) 4 - 8 tabs PO UD PRN; Protocol PRN Reason: Hypoglycemia Protocol Stop: 10/20/20 13:43 Glucose (Glucose 40% Gel 15 Gm Tube) 15 - 30 gm PO UD PRN; Protocol PRN Reason: Hypoglycemia Protocol Stop: 10/20/20 13:43 Insulin Aspart (Insulin Aspart 100 Units/Ml 3 Ml Pen) 0 units SC ACHS COUNT INCLUDES THE [facility] Stop: 10/20/20 16:29 Last Admin: 10/06/20 12:18 Dose: 20 units Documented by: Insulin Glargine (Insulin Glargine Solostar 100 Units/Ml 3 Ml Pen) 36 units SC QAM COUNT INCLUDES THE [facility] Stop: 11/05/20 08:59 Last Admin: 10/06/20 08:33 Dose: 36 units Documented by: Lactobacillus Acidoph/Casei/Rhamnos (Advanced Probiotic 1250 Mg Capsule) 2 cap PO BID COUNT INCLUDES THE [facility] Stop: 10/12/20 20:59 Last Admin: 10/06/20 07:43 Dose: 2 cap Documented by: Lisinopril (Lisinopril 2.5 Mg Tab) 2.5 mg PO QPM COUNT INCLUDES THE [facility] Stop: 10/13/20 20:59 Last Admin: 10/05/20 20:32 Dose: 2.5 mg Documented by: Lorazepam (Lorazepam 1 Mg Tab) 1 mg PO TID PRN PRN Reason: Anxiety Stop: 10/12/20 17:12 Last Admin: 10/04/20 22:24 Dose: 1 mg Documented by: Metoprolol Succinate (Metoprolol Succ 50mg Ext Rel Tab) 50 mg PO QAM COUNT INCLUDES THE [facility] Stop: 10/13/20 17:59 Last Admin: 10/06/20 07:46 Dose: 50 mg Documented by: Miconazole Nitrate (Miconazole Nitrate Powder 43 Gm) 1 appln EXT PRN PRN PRN Reason: Affected Skin Folds Stop: 10/14/20 03:32 Last Admin: 10/05/20 08:16 Dose: 1 appln Documented by: Miscellaneous (Carbohydrates For Hypoglycemia ) 15 - 30 gm PO UD PRN PRN Reason: Hypoglycemia Protocol Stop: 10/20/20 13:43 Miscellaneous Information (Pharmacy Glycemic Mgmt Consult) 1 ea N/A UD PRN PRN Reason: Consult Stop: 11/04/20 09:56 Multivitamins/Minerals (Cerovite Adv Formula Tab) 1 tab PO Q2D COUNT INCLUDES THE [facility] Stop: 10/13/20 08:59 Last Admin: 10/05/20 08:06 Dose: 1 tab Documented by: Pantoprazole Sodium (Pantoprazole 40 Mg Tab) 40 mg PO PM COUNT INCLUDES THE [facility] Stop: 10/12/20 20:59 Last Admin: 10/05/20 20:30 Dose: 40 mg Documented by: Paroxetine HCl (Paroxetine Hcl 20 Mg Tab) 20 mg PO QAM COUNT INCLUDES THE [facility] Stop: 10/13/20 08:59 Last Admin: 10/06/20 07:44 Dose: 20 mg Documented by: Rosuvastatin Calcium (Rosuvastatin Calcium 20 Mg Tab) 40 mg PO QPM COUNT INCLUDES THE [facility] Stop: 10/25/20 20:59 Last Admin: 10/05/20 20:30 Dose: 40 mg Documented by: Tamsulosin HCl (Tamsulosin Hcl 0.4 Mg Cap) 0.4 mg PO QAM COUNT INCLUDES THE [facility] Stop: 10/13/20 08:59 Last Admin: 10/06/20 07:41 Dose: 0.4 mg Documented by: Trazodone HCl (Trazodone Hcl 50 Mg Tab) 50 mg PO HS COUNT INCLUDES THE [facility] Stop: 10/14/20 20:59 Last Admin: 10/05/20 20:31 Dose: 50 mg Documented by: Vitamin A (Vitamin A 25,000 Unit Cap) 25,000 units PO QAM COUNT INCLUDES THE [facility] Stop: 10/14/20 08:59 Last Admin: 10/06/20 07:42 Dose: 25,000 units Documented by: Vitamin B Complex (Vitamin B Complex Tab) 1 tab PO PM COUNT INCLUDES THE [facility] Stop: 10/12/20 20:59 Last Admin: 10/05/20 20:30 Dose: 1 tab Documented by: Vitamin D (Cholecalciferol 1,000 Units 25 Mcg Tab) 1,000 units PO PM COUNT INCLUDES THE [facility] Stop: 10/12/20 20:59 Last Admin: 10/05/20 20:29 Dose: 1,000 units Documented by: Warfarin Sodium (Warfarin Sod 4 Mg Tab) 8 mg PO DAILY@1600 COUNT INCLUDES THE [facility] Stop: 11/04/20 22:59 Last Admin: 10/05/20 23:29 Dose: 8 mg Documented by:
[2020-10-06] MEDS: METOPROLOL SUCC 50MG EXT REL TAB PO SCH (07:46)
[2020-10-06 07:52] LABS: INR 2.4 (0.9-1.1); Prothrombin Time 24.2 Seconds (9.0-12.0)
[2020-10-06] MEDS: INSULIN ASPART 100 UNITS/ML 3 ML PEN SC SCH ×2 (08:31→12:18)
[2020-10-06] MEDS ORDERED: INSULIN GLARGINE SOLOSTAR 100 UNITS/ML 3 ML PEN SC SCH (09:00)
--- NOTE | 2020-10-06 13:44 | Discharge Summary ---
Date of Service October 06, 2020 Admission HPI Per Admitting Provider This is a 80-year-old male with complex past medical history of mechanical aortic valve, history of paroxysmal A. fib on Coumadin, history of lower GI bleed, type 2 diabetes, obstructive sleep apnea on CPAP Brought to ER with complaint of strokelike symptoms, right sided weakness. Information obtained from ER physician, medical records, and present at bedside, as patient was not able to give detailed information due to dysarthria and confusion. Around 8:20 AM heard a noise, patient was crying for help yelling for help, Found him on the kitchen floor, was not able to move his right arm, very slurred speech, with right facial droop. EMS was called, Stroke alert in the ER, CT head noncontrast shows no acute stroke or hemorrhage. TPA was administered after discussion with [facility] stroke neurology. Labs shows INR subtherapeutic 1.4, CTA head and neck: Unremarkable, MRI and MRA of brain ordered, Patient will be admitted to ICU for close monitoring of any bleeding complication post TPA Admission Exam Per Admitting Provider General Appearance:Obese, no apparent distress Head: normocephalic, Atraumatic Eyes: normal inspection, EOMI Neck: supple, Trachea midline Respiratory/Chest: Decreased breath sounds, CTA, No accessory muscle use Cardiovascular: S1, S2, + metallic click, no murmur Abdomen/GI:Soft, Non tender, Bowel sounds present Extremities/Musculoskelatal:normal inspection, Trace pedal edema, chronic venous stasis changes Neurologic/Psych:AAOX3, grossly no focal neurological deficits Skin: normal color, warm Principal Diagnosis Acute stroke ( MRI/MRA of brain-large left temporoparietal CVA /left MCA infraction) and received TPA on admission Confusion/metabolic encephalopathy on admission due to acute CVA status post mechanical aortic valve replacement in Paroxysmal Atrial Fibrillation Hypertension Type 2 diabetes mellitus without terminal operator current use of insulin Discharge Exam Constitutional: WD/WN, vitals as above Eyes: PERRL, EOMI, conjunctivae normal, anicteric sclerae + anicteric sclerae and reactive pupils ENMT: external ear and nose normal, oropharynx normal Neck: trachea midline, no thyromegaly Respiratory: normal respiratory effort, lungs clear to auscultation Cardiovascular: RRR, + mechan.valve sound, no murmur, no edema Gastrointestinal (Abdomen): normal bowel sounds, soft, nontender Skin: no rashes, warm and dry Neurologic: + focal motor deficit (rt sided weakness ) , able to move RUE but has significant sensory loss in RUE, also able to move RLE, awake Speech / Cognition: + abnormal speech (dysarthria ) and + expressive aphasia Motor/Sensory: no tremor, and no asterixis Psychiatric: A+Ox3, euthymic affect Discharge Data Allergies Allergy/AdvReac Type Severity Reaction Status Date / Time No Known Allergies Allergy Verified 09/11/20 10:24 Consultations 09/11/20 10:32 Consult Case Management - Discharge Planning Routine Consult Retirement Specialist Routine 09/11/20 10:33 ED Decision to Admit Stat 09/11/20 12:54 Consult Case Management - Discharge Planning Routine Consult Neurology Routine Ordered Studies 09/11/20 08:51 CT angio head w con Stat CT angio neck with con Stat CT head/brain wo con Stat 09/11/20 12:54 MR brain wo/w con Routine 09/11/20 19:36 CT head/brain wo con Stat 09/12/20 07:00 CT head/brain wo con Routine 09/14/20 16:35 CT head/brain wo con Routine 09/15/20 16:00 CT head/brain wo con Urgent 09/22/20 08:00 CT head/brain wo con Routine 09/24/20 09:00 CT head/brain wo con Routine Hospital Course (1) Acute CVA (cerebrovascular accident): 80-year-old male with history of paroxysmal atrial fibrillation, CAD, aortic valve replacement, on Coumadin, Diabetes type II, hypertension, dyslipidemia presenting with acute CVA. (1) Acute CVA (cerebrovascular accident): Acute stroke ( MRI/MRA of brain-large left temporoparietal CVA /left MCA infraction) and received TPA on admission remains stable overall, clinically improving dysarthria, R sided weakness improving continue to monitor Currently on Coumadin discussed with Neuro, ASA not recommended Follow up with neurology in 4-6 weeks after discharge Confusion/metabolic encephalopathy on admission -due to acute CVA , resolved (2) S/P AVR (aortic valve replacement): status post mechanical aortic valve replacement in Paroxysmal Atrial Fibrillation -hx of aortic arch aneurysm, status post mechanical aortic valve replacement in at [facility] - therefore the ideal INR would be between 2.5 to 3.5 -patient had been on Coumadin and had problems with maintaining adequate INR levels with a July 2020 hospital admission to [facility] when he had supratherapeutic INR and associated GI bleed -continue pantoprazole and oral iron supplements Now on coumadin 8mg daily, plan to dc on this new dose, will contact and notify anticoagulation clinic Completed heparin bridge monitor INR, heparin bridge if with INR < 2.5 Hypertension -Blood pressure within goal range -on lisinopril and metoprolol Hyperlipidemia -LDL 33 ,with in goal, continue Crestor Type 2 diabetes mellitus without terminal operator current use of insulin -a1c 6.1 -holding off patient's home medications -sliding scale insulin while in the hospital at this time Disposition: Denied encompass, plan to dc home with Total Time Total Time Spent Total Time Spent (In Minutes): 40 Total Time Includes: Examination of the Patient, Discharge Planning, Medication Reconciliation and Communication With Other Providers Discharge Plan Discharge Items Patient Disposition: Home - Home Health Services Reason For Visit: ACUTE CVA S/P tPA Discharge Diagnosis: Acute stroke ( MRI/MRA of brain-large left temporoparietal CVA /left MCA infraction) and received TPA on admission Confusion/metabolic encephalopathy on admission due to acute CVA status post mechanical aortic valve replacement in Paroxysmal Atrial Fibrillation Hypertension Type 2 diabetes mellitus without terminal operator current use of insulin Activity: As commented below Activity Comment: CONTINUE PHYSICAL /OCCUPATIONAL/SPEECH THERAPY Non-emergency contact: Primary Care Provider Call non-emergency contact if: you have any medication questions Follow-up/Referrals: Kobe Watkins DO [Physician] - (Date & Time 10/12/2020 11:00 AM Provider Regine Payne DO Department [facility] ) Yolette Fagan MD [Physician] - (Neurology follow-up 4 to 6 weeks after discharge ) Diet: Carb Consistent or DM2 and Heart Healthy Diet Texture: Dental soft (bite-sized) Addtl Attending Provider Instructions: Risk Factors for Stroke: You can reduce your chances of stroke by working with your medical provider to adopt a healthy lifestyle. Some specific ways to lower your chance of stroke are: * If you are a smoker, now is the time to stop smoking cigarettes * If you are diabetic, improve the control of your blood sugars * Avoid excessive amounts of alcohol * Control high blood pressure * Lose weight if you are overweight * Be sure to lead an active lifestyle * Eat a healthy diet low in salt, cholesterol and fat You should know about other risk factors for stroke that you are unable to control. These include: * Age 55 years or older * Male gender * Certain racial groups: , or / * Family History of Stroke, Mini stroke or Heart Attack * Sickle Cell Disease Follow Up: It is important for you to keep your follow up appointments with your medical provider. Who to Call and When: Medical Emergencies: Call 911 immediately if you experience any of the following warning signs and symptoms of Stroke: * Sudden numbness or weakness of the face, arm or leg, especially on one side of the body * Sudden confusion, trouble speaking or understanding * Sudden trouble seeing in one or both eyes * Sudden trouble walking, dizziness, loss of balance or coordination * Sudden severe headache with no cause Do not delay calling 911 if you experience any warning signs or symptoms of a stroke. Delay in seeking medical attention may affect what treatments can be given to you. . Addtl Ticket Puller Provider Instructions: Follow up with your primary care doctor within 1-2 weeks, the appointment was scheduled for you for 10/12/2020. You will need to closely follow up with anticoagulation clinic. Please have next INR in next 3 days. Your warfarin was changed to 8 mg daily in the hospital. Please continue this dose until instructed otherwise from anticoagulation clinic. Your statin (crestor) was increased as well, new prescription was sent to your pharmacy. Do not take aspirin. Follow up with neurology in 4-6 weeks. Pending Studies at Discharge: Yes Studies:: Close monitoring of PT/INR at coagulation clinic Stand-Alone Forms: My [facility] Medications and DC Order Prescriptions: New warfarin [Jantoven] 4 mg Tablet 8 mg PO DAILY@1600 30 Days Qty: 30 RF: 0 rosuvastatin [Crestor] 20 mg Tablet 40 mg PO QPM 30 Days Qty: 60 RF: 0 gabapentin 100 mg Capsule 100 mg PO BID 30 Days Qty: 60 RF: 0 Continued Tresiba FlexTouch U-100 100 unit/mL (3 mL) Insulin Pen 60 unit SUBCUT BID RF: 0 trospium 60 mg Capsule,Extended Release 24hr 60 mg PO QAM RF: 0 Trulicity 1.5 mg/0.5 mL pen injector 1.5 mg SUBCUT MO RF: 0 tamsulosin [Flomax] 0.4 mg Capsule 0.4 mg PO QAM RF: 0 lorazepam [Ativan] 1 mg Tablet 1 mg PO TID PRN (Reason: Anxiety) RF: 0 metoprolol succinate [Toprol XL] 50 mg tablet extended release 24 hr 50 mg PO QAM RF: 0 beta carotene 25,000 unit Capsule 25,000 unit PO QAM RF: 0 clobetasol 0.05 % Cream 1 applic TOPICAL BID PRN (Reason: psoriasis) RF: 0 vitamin B complex Tablet 1 tab PO PM RF: 0 amoxicillin 500 mg capsule 2,000 mg PO UD RF: 0 ascorbic acid (vitamin C) [Vitamin C] 500 mg Tablet 500 mg PO Q OTHER DAY RF: 0 paroxetine HCl [Paxil] 20 mg tablet 20 mg PO QAM RF: 0 ferrous sulfate 325 mg (65 mg iron) Tablet 325 mg PO BID RF: 0 folic acid 1 mg tablet 1 mg PO PM RF: 0 allopurinol [Zyloprim] 300 mg tablet 300 mg PO Q OTHER DAY RF: 0 lisinopril 2.5 mg tablet 2.5 mg PO QPM RF: 0 insulin aspart U-100 [Novolog Flexpen U-100 Insulin] 100 unit/mL insulin pen 0 unit subcut TIDM RF: 0 fluocinolone and shower cap [[place]-Smoothe/FS Scalp Oil] 0.01 % oil 1 applic Topical UD PRN (Reason: psoriasis) RF: 0 pantoprazole 40 mg tablet,delayed release (DR/EC) 40 mg PO PM RF: 0 fluocinolone 0.01 % Oil 1 applic TOPICAL DAILY PRN (Reason: psoriasis) RF: 0 multivitamin with minerals Tablet 1 tab PO Q2D RF: 0 omega 0-jyq-jpd-fish oil [Fish Oil] 1,200 (144-216) mg Capsule 1 cap PO Q2D RF: 0 Probiotic 4 Billion Tablets 4 mmu PO BID RF: 0 Vitamin D 1200 Units 1,200 units PO PM RF: 0 Discontinued rosuvastatin [Crestor] 10 mg Tablet 10 mg PO QPM RF: 0 warfarin 5 mg tablet See Rx Instructions .ROUTE .COMPLEX RF: 0 Discharge Orders: Discharge Order (Routine); Ordered 10/06/20 Ordered By: Rodney Myers/Other Patient Handouts: Managing Type 2 Diabetes, Dysphagia: Exercises, 5 Steps for Eating Healthier, Arm Care After a Stroke, Dysphagia Diet- Managing Drinks, Dysphagia Diet- Managing Foods, Dysphagia Tongue Strengthen Exercise, Dysphagia Aspiration Tx Admission Data Admit Date/Time: 09/11/20 10:32 Attending Provider: Rodney Marie Admit Provider: Lizzy Garcia Primary Care Provider: PCP,NO Other Providers: [facility] ; Louie Kapadia ; Manish Jensen ; Lizzy Garcia ; Yolette Gandhi ; Jose Luis Landry ; Yolette Fagan ; Rodríguez Márquez ; [facility] ; Benjamin Lynn
--- NOTE | 2020-10-06 13:46 | Pharmacy Report ---
Glycemic Control Progress Note - Date of Service October 06, 2020 - Scope Glycemic Pharmacist consulted for glycemic control to write orders per [facility] inpatient glycemic control protocol. - Objective Accuchecks BSG(last 24 hours):: 10/05/20 10/05/20 10/06/20 16:36 20:34 07:37 POC Glucose 129 H 201 H 202 H HbA1c:: Hemoglobin A1c 6.1 % (4.5-5.6) H 09/12/20 10:03 - Recent Pertinent Medications The patient is currently receiving: * Basal insulin: Lantus 30 units every 24 hours * Correctional Insulin: Novolog Correction per scale ACHS Goal Range: Low 110 mg/dL - High 140 mg/dL Correction Factor: 18 mg/dL/unit * Prandial insulin: Per carb ratio of 1 unit per 6 grams CHO consumed - Outpatient Anti-Diabetic Meds Trulicity 1.5 mg SQ daily Novolog scale - Assessment & Plan ASSESSMENT: * See progress note from 10/05/2019 for more background info, in short: * Pt receiving SQ basal bolus insulin regimen for hyperglycemia secondary to baseline DM (outpatient regimen on hold). Patient is s/p TPA for CVA. * Patient is currently receiving an average of 71 units of insulin per day * 30 units of basal insulin * 41 units of prandial/correctional insulin * BSGs ranging 129 - 234 mg/dl over the past 24hrs * Changes needed to insulin regimen: * AM Fasting BSG = 202 mg/dl. This is above goal range for patient based on inpatient targets and co-morbidities. Therefore Basal insulin increased by 20% to 36 units. Provide scale tomorrow with additional 20% increase if BSGs remain above 160 mg/dL. * Post-prandial BSGs were elevated so tightened to weight-based stress of 3. * Total daily dose = ~80-90 units. Increased insulin appropriately. PLAN FOR INPATIENT GLYCEMIC CONTROL: * INCREASING Lantus to 36 units SQ daily (43 units if BSG > 160 mg/dL starting 10/07/20) * TIGHTENING correction factor to 15 mg/dl/unit * TIGHTENING carb ratio to 1 unit per 5 grams CHO consumed * Continuing goal range of Low 110 mg/dL - High 140 mg/dL RECOMMENDATIONS FOR DISCHARGE: * Patient's HbA1C is within goal range. Can continue home regimen as long as patient does not have any hypoglycemia. Thank you.
[2020-10-06] MEDS ORDERED: WARFARIN SOD 4 MG TAB PO ONE (14:00)
[2020-10-07] MEDS ORDERED: INSULIN GLARGINE SOLOSTAR 100 UNITS/ML 3 ML PEN SC SCH (09:00)
== END 2020-10-06 16:30 | disposition home health service (06) | DRG 61 ==
LOC: ED 08:50 → 1E 10:32 → SUATTDRO 10:32 → 1E 12:22 → 2W 09-13 15:50